=== PATIENT | female | born 1950 | race African-American/Black ===

== ENCOUNTER 2023-12-27 18:53 | Inpatient (IN) | payer MEDICARE, BC, SELFPAY ==
[2023-12-27] VITALS (14 sets, daily range): BP systolic 160–199; BP diastolic 39–68; PULSE 62–66
[2023-12-27 16:32] LABS: % Basophils 0.7 % (0-2); % Eosinophils 5.7 % (0-6); % Immature Granulocytes 0.5 % (0-0.5); % Lymphocytes 20.2 % (20.5-51.1); % Monocytes 9.5 % (1.7-9.3); % Neutrophils 63.5 % (42.2-75.2); AST (SGOT) 56 U/L (14-36); Absolute Basophils 0.1 10^3/uL (0-0.2); Absolute Eosinophils 0.5 10^3/uL (0-0.7); Absolute Lymphocytes 1.7 10^3/uL (1.2-3.4); Absolute Monocytes 0.8 10^3/uL (0.1-0.6); Absolute Neutrophils 5.5 10^3/uL (1.4-6.5); Albumin 2.9 g/dl (3.5-5.0); Blood Urea Nitrogen 45 mg/dl (7-17); Carbon Dioxide 33 mmol/L (22-30); Mean Corp Hgb Conc. 34.7 g/dL (33.0-37.0); Mean Corpuscular Hgb 30.9 pg (27.0-31.0); Mean Corpuscular Volume 88.8 fL (81.0-99.0); Mean Platelet Volume 9.7 fL (7.4-10.4); Nucleated Red Blood Cells % 0 %; Platelet Count 276 10^3/uL (130-400); Red Blood Cell Count 1.88 10^6/uL (4.20-5.40); Red Cell Dist. Width 14.6 % (11.5-14.5); Total Bilirubin 0.3 mg/dl (0.2-1.3); Total Protein 5.9 g/dl (6.3-8.2); White Blood Cell Count 8.7 10^3/uL (4.8-10.8); eGFR 22.95
[2023-12-27 16:42] LABS: INR 1.21; PT 15.3 Sec (11.4-14.6)
[2023-12-27 16:43] LABS: ALT (SGPT) 13 U/L (0-35); Alkaline Phosphatase 115 U/L (38-126); Glucose 111 mg/dl (70-99)
[2023-12-27 16:45] LABS: Hemoglobin 5.9 g/dL (12.0-16.0)
[2023-12-27 16:46] LABS: Hematocrit 17 % (37.0-47.0)
[2023-12-27 16:49] LABS: Chloride 91 mmol/L (98-107); Potassium 3.3 mmol/L (3.5-5.1); Sodium 128 mmol/L (135-145)
[2023-12-27] MEDS: PROTONIX IV 80 MG IV (17:30)
[2023-12-27] MEDS: PROTONIX 100 IV (17:31)
--- NOTE | 2023-12-27 17:41 | ED.GENMED ---
History of Present Illness
General
Chief Complaint: Abnormal Lab Value
Source: records
Exam Limitations: clinical condition
Time Seen by Provider: 12/27/23 13:53
History of Present Illness
History of Present Illness:
73-year-old female presents for concerns of anemia. She has a history of end-stage renal disease but also has a history of dementia. He is on Eliquis. Patient reportedly had low hemoglobin on dialysis. Patient offers no complaints and is unable
to contribute to her own history. No vomiting
Past History
Past History
ED Past Medical History: Arrthythmia (Atrial fibrillation), NIDDM, Renal failure, Seizures and Other (Dementia, dysphagia, G-tube, anemia)
Phy Exam
Physical Exam
Physical Exam:
CONSTITUTIONAL Patient sleeping but arousable. Confused. Well-appearing. Vital signs reviewed.
HEAD atraumatic, normocephalic.
NECK normal range of motion, Trachea midline, no jugular venous distention.
RESPIRATORY CHEST No respiratory distress noted, Chest expansion equal
ABDOMEN abdomen nontender, Bowel sounds normal. No distention.
Rectal exam Black stool, heme positive
BACK normal inspection, no obvious deformities
UPPER EXTREMITY range of motion normal, Motor strength normal, no cyanosis, no edema.
LOWER EXTREMITY range of motion normal, Motor strength normal, no cyanosis, equine deformity noted
NEURO nonverbal, confused
SKIN skin warm, dry, and normal in color.
Course
Orders/Labs/Results
Orders:
Orders
12/27/23 14:09
IV Insert/Care/Rem.- Treatment PRN
12/27/23 16:10
Type+Screen Urgent
Complete Blood Count/With Diff Urgent
Comprehensive Metabolic Panel Urgent
Prothrombin Time Urgent
12/27/23 17:22
* Blood Bank Products Urgent
Blood Bank Products: *Packed RBC Leuko(PRBC's)
Quantity: 2
Transfuse Today: Yes
Reason: Anemia
IV Insert/Care/Rem.- Treatment PRN
Pantoprazole 80 mg/100 ml Nss [Protonix] 80 mg in 100 ml IV NOW
Pantoprazole [Protonix IV] 80 mg IV NOW STA
12/27/23 17:49
Electrocardiogram (*1) Urgent
Reason for Study: Other
Other Reason for Exam: anemia
EKG- Treatment ONCE
Abnormal Lab Results
12/27/23
16:10
RBC 1.88 L 10^6/uL
(4.20-5.40)
Hgb 5.9 L* g/dL
(12.0-16.0)
Hct 17 L* %
(37.0-47.0)
RDW 14.6 H %
(11.5-14.5)
Absolute Monos (auto) 0.8 H 10^3/uL
(0.1-0.6)
Lymphocytes % 20.2 L %
(20.5-51.1)
Monocytes % 9.5 H %
(1.7-9.3)
PT 15.3 H Sec
(11.4-14.6)
Sodium 128 L mmol/L
(135-145)
Potassium 3.3 L mmol/L
(3.5-5.1)
Chloride 91 L mmol/L
(98-107)
Carbon Dioxide 33 H mmol/L
(22-30)
BUN 45 H mg/dl
(7-17)
Creatinine 2.2 H mg/dL
(0.6-1.0)
Glucose 111 H mg/dl
(70-99)
AST 56 H U/L
(14-36)
Total Protein 5.9 L g/dl
(6.3-8.2)
Albumin 2.9 L g/dl
(3.5-5.0)
12/27/23 16:10
12/27/23 16:10
Vital Signs
Initial and Last Documented VS:
Initial Vital Signs
Pulse Resp Pulse Ox
61 18 98
12/27/23 13:48 12/27/23 13:48 12/27/23 13:48
Last Documented Vital Signs
Temp Pulse Resp BP Pulse Ox
98.2 F 59 10 160/55 100
12/27/23 14:00 12/27/23 15:00 12/27/23 15:00 12/27/23 15:00 12/27/23 15:00
MDM/Problems Addressed
MDM/Problems Addressed:
End-stage renal disease, acute GI bleeding, dementia, anticoagulated
*Pulse Oximetry
Patient hypoxic: no
*Critical Care Note
Total Time (30-74mins, 75-104mins- exclusive of procedures): 40 minutes
Data Reviewed
Review of Other/Old Records Reveals: Records (prison paperwork reviewed)
Further Testing Considered But Not Given:
Consider CT imaging but abdomen benign.
Patient Management
Discussion with other providers: Hospitalist
Escalation/DeEscalation of care consider admission/obs:
Patient on Eliquis with anemia and heme positive stools. Protonix drip. Packed red blood cell transfusion. Attempted to call several times without answer or call back thus far. Given the fact that her hemoglobin is in the fives and she
is chronically ill on Eliquis I do believe it is urgent that we deliver packed red blood cells without speaking to family for further consent. Will continue to try to get a hold of family. Messages were left for return call
ED Attending Note
-
Portions of this chart may have been created with voice recognition software.� Occasional wrong word or��sound alike� substitutions may have occurred due to the inherent limitations of voice recognition software.
Discharge Plan
Departure
Patient Disposition: Admit
Date of Disposition: 12/27/23
Time of Disposition: 17:41
Admit to: Telemetry
Presentation/result/management discussed w/ accepting MD/DO: Hospitalist
Discharge Problem:
Anemia, Chronic renal failure, Dementia, Acute GI bleeding
Prescriptions:
No Action
losartan 50 mg Tablet
50 mg feeding tube DAILY
acetaminophen [Tylenol] 325 mg Tablet
650 mg PO Q6HPRN PRN (Reason: mild pain)
atorvastatin [Lipitor] 20 mg Tablet
20 mg feeding tube HS
insulin glargine 100 unit/mL Solution
5 unit SC HS
clonidine 0.1 mg/24 hr Patch Weekly
1 patch TRANSDERMAL QWEEK
polyethylene glycol 3350 [Miralax] 17 gram Powder In Packet
17 g feeding tube DAILYPRN PRN (Reason: CONSTIPATION)
hydralazine 25 mg Tablet
25 mg feeding tube TID
melatonin 3 mg Tablet
3 mg feeding tube HSPRN PRN (Reason: SLEEP)
amlodipine [Norvasc] 10 mg Tablet
10 mg feeding tube DAILY
bisacodyl [Dulcolax (bisacodyl)] 10 mg Suppository
10 mg AL DAILYPRN PRN (Reason: if no bm aftr mom)
ferrous sulfate 300 mg (60 mg iron)/5 mL Liquid
300 mg feeding tube DAILY
aspirin 81 mg Tablet,Chewable
81 mg feeding tube DAILY
famotidine [Pepcid] 40 mg/5 mL (8 mg/mL) Suspension For Reconstitution
1.3 ml feeding tube DAILY
insulin lispro 100 unit/mL Insulin Pen
0 sliding scale dose SC AC
Rx Instructions:
151-200=1 UNITS, 201-250=2UNITS, 251-300=3UNITS
lacosamide [Vimpat] 10 mg/mL Solution
100 mg feeding tube BID
Eliquis 5 mg Tablet
5 mg feeding tube BID
Referrals:
Faizan,Earl I., DO [Family Provider] -
Interventions
Interventions:
*Risk Screen - Suicide Last Done: 12/27/23 14:01
*General Assessment Last Done: 12/27/23 14:01
*Neglect/Abuse Screening Last Done: 12/27/23 14:01
*ED COVID-19 Vaccine History Last Done: 12/27/23 14:01
Discharge Date and Time
Print Language: FAROESE
--- NOTE | 2023-12-27 18:25 | HPS.HSE ---
Family Physician
-
Family Physician: Earl Gloria
Chief Complaint
-
Acute anemia
History of Present Illness
This is a 73-year-old female with history of end-stage renal disease on hemodialysis Tuesdays and Saturdays, history of anemia secondary to chronic disease, history of DVT on anticoagulation, history of paroxysmal atrial fibrillation,
hypertension, epileptic seizures, dysphagia status post PEG tube, CAD with prior NSTEMI, CVA who presents to the emergency department for dialysis unit for a low blood count.
Patient unable to provide history and minimally responsive likely secondary to history of CVA with residual aphasia, and left-sided weakness. Minimal report from dialysis unit. Patient apparently had blood drawn today and was found to have a
hemoglobin of 5.9 at dialysis unit so was sent to the emergency department. In the ED evaluation of the rectum shows black heme positive stools. Patient known to be on Eliquis. Has been getting Eliquis regularly and minus reports continued
Eliquis. She apparently completed a dialysis session today.
Attempted to reach next of kin and additional family members without success. Left messages for daughter as well as her spouse.
ED vital signs shows a blood pressure of 160/55 with a pulse of 59 and oxygen saturation of 100% on room air. ECG shows sinus bradycardia at [address] or T wave changes. Hemoglobin was 5.9 with a platelet count of 276 and INR of
1.21. Chemistries were consistent with ESRD with a BUN of 45 and a creatinine of 2.2.
Medical History
Past Medical History
Past Medical History: Reports Arrhythmia, CAD, CVA, HTN, IDDM and Renal Failure
Additional Past Medical History:
Seizure D/O
Atrial Fibrillation
Past Surgical History: Reports None
Social History
Unable to obtain full social history at this time due to: Patient Non-verbal
Tobacco: Non-smoker
Alcohol: None
Drug: None
Personal:
Living: [facility]
Employment: Disabled
Family History
Family History: Not pertinent
Allergies / Home Medications
Allergies reflects when Allergies were last updated in [facility].
Home Medications with original date entered in [facility]
Allergy/Medication List:
Allergies
Allergy/AdvReac Type Severity Reaction Status Date / Time
adhesive tape Allergy Unknown Verified 12/27/23 13:48
codeine Allergy Unknown Verified 12/27/23 13:48
oxycodone Allergy Unknown Verified 12/27/23 13:48
tramadol Allergy Unknown Verified 12/27/23 13:48
Home Medications
acetaminophen 325 mg tablet (Tylenol) 650 mg PO Q6HPRN PRN mild pain 12/27/23
amlodipine 10 mg tablet (Norvasc) 10 mg feeding tube DAILY 12/27/23
apixaban 5 mg tablet (Eliquis) 5 mg feeding tube BID 12/27/23
aspirin 81 mg chewable tablet 81 mg feeding tube DAILY 12/27/23
atorvastatin 20 mg tablet (Lipitor) 20 mg feeding tube HS 12/27/23
bisacodyl 10 mg rectal suppository (Dulcolax (bisacodyl)) 10 mg [place] DAILYPRN PRN if no bm aftr mom 12/27/23
clonidine 0.1 mg/24 hr weekly transdermal patch 1 patch transdermal QWEEK 12/27/23
famotidine 40 mg/5 mL (8 mg/mL) oral suspension 1.3 ml feeding tube DAILY 12/27/23
ferrous sulfate 300 mg (60 mg iron)/5 mL oral liquid 300 mg feeding tube DAILY 12/27/23
hydralazine 25 mg tablet 25 mg feeding tube TID 12/27/23
insulin glargine 100 unit/mL subcutaneous solution 5 unit SC HS 12/27/23
insulin lispro 100 unit/mL subcutaneous pen 0 sliding scale dose SC AC 12/27/23
lacosamide 10 mg/mL oral solution (Vimpat) 100 mg feeding tube BID 12/27/23
losartan 50 mg tablet 50 mg feeding tube DAILY 12/27/23
melatonin 3 mg tablet 3 mg feeding tube HSPRN PRN SLEEP 12/27/23
polyethylene glycol 3350 17 gram oral powder packet (Miralax) 17 g feeding tube DAILYPRN PRN CONSTIPATION 12/27/23
Review of Systems
-
Unable to obtain full review of systems at this time due to: Patient Non-verbal
Physical Exam
Vital Signs
Vital Signs
Temp Pulse Resp BP Pulse Ox
98.2 F 59 10 160/55 100
12/27/23 14:00 12/27/23 15:00 12/27/23 15:00 12/27/23 15:00 12/27/23 15:00
Physical Exam
General: Well Developed, No Apparent Distress and Slurred Speech
HEENT: NormoCephalic, Anicteric, Moist mucous membranes and PERRLA
Respiratory: Clear
Cardiac: S1/S2 and Regular Rhythm
Breast: Deferred by me
GI: Soft, Non Tender and Non Distended
Rectal: Black and Hem Positive
Genito-urinary: Deferred by me
Musculoskeletal: No Clubbing, No Cyanosis and No Edema
Skin: Warm and Dry
Neuro: Awake, Oriented (to person only), Slurred Speech, Facial Droop (left facial droop) and Other (left sided weakness)
Hematologic/Lymphatic: No Lymphadenopathy
Psych: Calm
Laboratory Results
-
12/27/23 16:10
12/27/23 16:10
Laboratory Results
PT 15.3 Sec (11.4-14.6) H 12/27/23 16:10
INR 1.21 12/27/23 16:10
Total Bilirubin 0.3 mg/dl (0.2-1.3) 12/27/23 16:10
AST 56 U/L (14-36) H 12/27/23 16:10
ALT 13 U/L (0-35) 12/27/23 16:10
Alkaline Phosphatase 115 U/L (38-126) 12/27/23 16:10
Data Reviewed
-
Medical Tests (Nuc Med, Echo, EKG etc): Image Personally Visualized and interpreted
Lab Data: Labs Reviewed by me
Old Records: Reviewed
Impression/Plan
-
IMPRESSION:
Anemia in patient on ESRD with known ACD presenting with finding of Hgb of 5.9 at HD today and transferred to ED. Dialysis unit nor skilled nursing provided any prior hgb levels and no known h/o GI bleed. Patient unable to provide any history. She
is hemodynamically stable and in no acute distress.
PLAN:
GI - Bleed - Suspect upper GI bleed in setting of anticoagulation and antiplatelet therapy. Hemodynamically stable.
- admit to telemetry
- type and screen, transfuse 1 unit prbc now and transfuse for goal Hgb of 7. No evidence of volume overload currently. Two physician consent obtained as we are unable to get hold of family for consent.
- ppi iv gtt for now
- npo for now
- holding eliquis and aspirin
- GI consultation
ESRD - HD t//sat via left IJ permcath. Completed session today. No indication for acute HD
- npo, nephrology consultation tomorrow for HD on sat
- renal dose all medications
- no volume overload, hyperkalemia or acidosis requiring urgent HD
- continue calcitriol
- hyponatremia - c/w ESRD, correct on HD. Fluid restriction with NPO for now
HTN -
- continue amlodipine, hydralazine, clonidine and losartan with hold parameters
Seizure d/o
- continue lacosamide and keppra via PEG
DM II
- insulin sliding scale q 6 hours.
DVT PPX - SCDs
Full code according to transfer data
--- NOTE | 2023-12-27 21:00 | PTCARENOTE ---
Pt transferred from ED with first unit of blood transfusing. Pt transferred into bed. Pt AAOX1, slow speech. Pt appears comfortable, no signs of pain. Pt oriented to bed, call carrillo within reach, bed alarm applied. Will continue with current plan.
[2023-12-27 21:27] LABS: Glucose - Point of Care 129 mg/dl (70-99)
[2023-12-27] MEDS: NOVOLOG FLEXPEN-LOW RESISTANCE SC (22:59)
[2023-12-27] MEDS: LIPITOR 20 MG TUBE (23:00)
[2023-12-27] MEDS: CATAPRES-TTS-1 0.1 MG TRANSDERM (23:00)
[2023-12-27] MEDS: APRESOLINE 25 MG TUBE (23:00)
[2023-12-27] MEDS: VIMPAT 100 MG TUBE (23:05)
[2023-12-28] VITALS (7 sets, daily range): BP systolic 156–209; BP diastolic 54–98; PULSE 56–65
[2023-12-28 00:11] LABS: Glucose - Point of Care 114 mg/dl (70-99)
[2023-12-28] MEDS: NOVOLOG FLEXPEN-LOW RESISTANCE SC ×5 (00:23→23:16)
[2023-12-28] MEDS: APRESOLINE 10 MG IV (03:57)
[2023-12-28 05:23] LABS: Glucose - Point of Care 121 mg/dl (70-99)
[2023-12-28 05:58] LABS: Blood Urea Nitrogen 49 mg/dl (7-17); Calcium 8.9 mg/dl (8.4-10.2); Carbon Dioxide 31 mmol/L (22-30); Chloride 93 mmol/L (98-107); Glucose 97 mg/dl (70-99); Iron 95 ug/dl (37-170); Potassium 3.3 mmol/L (3.5-5.1); Sodium 131 mmol/L (135-145); eGFR 17.95
[2023-12-28 06:07] LABS: Percent Saturation 54 % (20-50); Total Iron Binding Capacity 174 ug/dl (265-497)
[2023-12-28 06:10] LABS: Hematocrit 24.1 % (37.0-47.0); Hemoglobin 8.4 g/dL (12.0-16.0)
--- NOTE | 2023-12-28 07:26 | W.PN.HOSP.TC ---
Addendum entered and electronically signed by Rolly Ojeda MD 12/28/23 17:06:
73 y/o female with Anemia
I personally performed a history and physical exam of the patient and discussed management with the resident. I reviewed the resident's note and agree with the documented findings and plan of care HPI/CC except for changes in documentation.
CVS: S1-S2 normal,
Chest: CTA B/L
Abdomen: Soft, NT , Bowel sounds present
Extremities: No edema
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
#GIB
Differential are broad
Exacerbated by Eliquis and ASA
Got 2 units of PRBC
PPI GTT
NPO
Hold Eliquis
GI eval appreciated
Procedures when can be reached.
#ESRD HD T/TH/Sun
Left IJ access
Got HD 12/27/23
Nephrology eval
#Hyponatremia- Treat at HD
#Hypokalemia- Replace 20 MEQ
#HTN-Multidrug resistant
OP Meds amlodipine 10 mg daily, hydralazine 50mg Q8H, clonidine patch and losartan 50 mg daily
Watch HR with clonidine
Will add PRN Hydralazine for BP over 170
Change Norvasc to Nicardipine tomorrow if BP nt well controlled
#Seizure disorder-Continue lacosamide via PEG
#Atrial Fibrillation- Hold Eliquis. Rates mostly controlled with clonidine?
#H/O DVT-Hold Eliquis
#Hyperlipidemia-Continue Statin
#Dementia
#DM II -Insulin sliding scale q 6 hours. Hold Lantus 5 units HS
#H/O Dysphagia with PEG tube
#H/O Lung Ca per chart
#DVT PPX - SCDs
#Full code
D/W Renal
D/W GI
Called went to message
Left message
Original Note:
Today's Communication/Plan
-
blood pressure management
Nephro consult
HD tomorrow
Assessment / Plan
Assessment / Plan
Impression:
This is a 73-year-old female with history of end-stage renal disease on hemodialysis Tuesdays and Saturdays, history of anemia secondary to chronic disease, history of DVT on anticoagulation, history of paroxysmal atrial fibrillation,
hypertension, epileptic seizures, dysphagia status post PEG tube, CAD with prior NSTEMI, CVA who presents to the emergency department for dialysis unit for a low blood count.
Plan:
#GI Bleed
- Suspect upper GI bleed in setting of anticoagulation and antiplatelet therapy.
-Rectum eval in ED shows black stool, heme positive
- admit to telemetry
- type and screen
-S/p transfuse 2 unit prbc
-Goal Hgb of 7. No evidence of volume overload currently. Two physician consent obtained as we are unable to get hold of family for consent.
- ppi iv gtt for now
- npo for now
- holding eliquis and aspirin
- GI consultation
#ESRD
- HD t//sat via left IJ permcath.
-Last completed session 12/27/23.
-Cr on admission was 2.2
-Cr 2.7 today
- npo, nephrology consultation tomorrow for HD on sat
- renal dose all medications
- today, no volume overload, hyperkalemia or acidosis requiring urgent HD
- continue calcitriol
#hyponatremia
-Na 128 on admission
-Na 131 today
- c/w ESRD, correct on HD.
-Fluid restriction with NPO for now
#hypokalemia
-K 3.3 this A.m
-repleted with tube K 20meq
#HTN
- continue amlodipine, hydralazine, clonidine and losartan with hold parameters
-Add PRN hydralizine with holding parameters
#Seizure d/o
- continue lacosamide and keppra via PEG
#DM II
- insulin sliding scale q 6 hours.
DVT PPX - SCDs
Diet:NPO
Full code according to transfer data
Anticipated Discharge: > 48 hours
Subjective/Interval History
-
Date of Service: December 28, 2023
No acute events overnight
Pt alert but non verbal, at baseline
Family has still not been contacted
Objective Data
-
Labs:
Laboratory Results
12/28/23 12/28/23
04:13 14:45
Hgb 8.4 L D Pending
Hct 24.1 L Pending
Sodium 131 L
Potassium 3.3 L
Chloride 93 L
Carbon Dioxide 31 H
BUN 49 H
Creatinine 2.7 H
Glucose 97
Calcium 8.9
Vital Signs:
Vital Signs
Temp Pulse Resp BP Pulse Ox
97.1 F 64 12 209/73 100
12/28/23 04:18 12/28/23 04:18 12/28/23 04:18 12/28/23 04:18 12/28/23 04:18
I&O
12/27/23 12/28/23 12/29/23
06:59 06:59 06:59
Intake Total 500 / 500
Balance 500 / 500
Review of Systems
-
Unable to obtain full review of systems at this time due to: Dementia and Patient Non-verbal
Physical Exam
-
General: No Apparent Distress and Comfortable; Negative Conversant
Respiratory: Clear to Auscultation
Cardiac: Regular Rhythm, S1/S2 and Murmur
GI: Soft, Nondistended and Normal Bowel Sounds
Musculoskeletal: No Edema
Skin: Warm and Dry
Neuro: Awake
Psych: Apparent Dementia
Data Reviewed
-
Labs: Labs Reviewed by me and Discussed with Physician
[2023-12-28] MEDS: COZAAR 50 MG TUBE (09:15)
[2023-12-28] MEDS: NORVASC 10 MG TUBE (09:16)
[2023-12-28] MEDS: VIMPAT 100 MG TUBE ×2 (09:16→21:19)
[2023-12-28] MEDS: FERROUS SULFATE ORAL LIQUID 300 MG TUBE (09:16)
[2023-12-28] MEDS: APRESOLINE 25 MG TUBE ×2 (09:16→10:55)
[2023-12-28] MEDS: KLOR-CON 20 MEQ TUBE (09:19)
[2023-12-28 10:52] LABS: Glucose - Point of Care 121 mg/dl (70-99)
--- NOTE | 2023-12-28 10:52 | CM ---
TC to Josefina from [facility] for information.
Await TCB.
[2023-12-28 12:21] LABS: Hepatitis B Surface Antigen Negative (Negative)
[2023-12-28 12:39] LABS: Hepatitis B Surface Antibody Negative
--- NOTE | 2023-12-28 15:03 | CON.GI ---
Addendum entered and electronically signed by Earl Curtis MD 12/28/23 15:54:
I saw and examined the patient.
The [employer]ITTER or PA's note was reviewed and I agree with the note.
Comment: 73yo female presents from HD with anemia. Hgb 5.9. Given PRBC and up to 8.4. She is on eliquis for hx DVT, has PEG tube- lavaged at bedside by [employer], negative. Stool dark heme positive, on PO iron though. Pt is nonverbal, limited
history. No EGD/colonoscopy noted in chart.
REC:
Trend Hgb and transfuse as needed
I tried calling Art but one number had no voicemail set up, other was busy
Cont protonix gtt
Discuss EGD/colonoscopy with when available
Hold Eliquis for now
DDx fairly broad includes ectasia, ulcer, malignancy
Original Note:
Consultation
-
Date/Time Consultation Requested: 12/27/232009
Date/Time Consultation Performed: 12/28/23 1430
Requesting Provider: Dr. Staton
Performing Provider: Dr. Curtis/BHUPINDER Smith
Reason for Consultation: anemia/OB pos stool
Medical History
Chief Complaint / HPI
Chief Complaint: anemia
History of Present Illness:
73 y/o female with PMH of CVA with aphasia, dysphagia with PEG tube, ESRD on HD -, AOCD/anemia on oral iron, DVT on AC (eliquis 5 mg BID), PAF, CAD with prior STEMI on ASA 81 mg , HTN, DM, and Seizure disorder who presents to the ER with
decreased Hgb found during HD session, completed HD session on . Patient is non verbal. she has never been in this hospital. She was found to have Hgb of 5.9 with dark black stool that was OB positive. Patient was given 2 units of PRBC with
Hgb increasing to 8.4 and Eliquis was held. Patient has not had any BM or signs of bleeding since here. ER physician and IM Attending attempted to reach family without any success. I also tried to reach her spouse that is listed Art Nettles
[phone] (no answer and mail box has not been set up) and [phone] (busy signal constantly). The patient appears comfortable. When asked if she has abdominal pain, nausea or discomfort she nods her head no. She has no discomfort to exam. I
discussed with RN and patient has no signs of bleeding or BM. She had been getting meds via 16 Fr [employer] Cook PEG tube. She had no signs of bleeding or return from this and has been receiving meds through this. This was aspirated and flushed without
any signs of blood, coffee grounds or bile. 90 cc water was used and flowed freely with only return of less then half. The patient was able to elaborate that she had no pain with this. Patient was started on Pantoprazole gtt. VSS. Awaiting repeat
Hgb at this time.
Past Medical History
Past Medical History: Arrhythmias (Afib), CAD, CVA (aphasia), HTN, NIDDM, HI, Renal Failure (on HD -), Seizures and Other (Anemia on iron /AOCD)
Past Surgical History: Other (PEG tube )
Social History
Tobacco: Other (unable to obtain)
Alcohol: Other (unable)
Drug: Other (unable)
Personal:
Family History
Family History: Unable to Obtain
Allergies / Home Medications
Allergy/AdvReac Type Severity Reaction Status Date / Time
adhesive tape Allergy Unknown Verified 12/27/23 13:48
codeine Allergy Unknown Verified 12/27/23 13:48
oxycodone Allergy Unknown Verified 12/27/23 13:48
tramadol Allergy Unknown Verified 12/27/23 13:48
�Medication �Instructions �Recorded
acetaminophen 325 mg tablet 650 mg PO Q6HPRN PRN mild pain 12/27/23
(Tylenol)
amlodipine 10 mg tablet (Norvasc) 10 mg feeding tube DAILY Blood 12/27/23
Pressure
apixaban 5 mg tablet (Eliquis) 5 mg feeding tube BID Blood Clot 12/27/23
Prevention/Tx
aspirin 81 mg chewable tablet 81 mg feeding tube DAILY Blood 12/27/23
Clot Prevention/Tx
atorvastatin 20 mg tablet (Lipitor) 20 mg feeding tube HS High 12/27/23
Cholesterol
bisacodyl 10 mg rectal suppository 10 mg [place] DAILYPRN PRN if no bm 12/27/23
(Dulcolax (bisacodyl)) aftr mom
clonidine 0.1 mg/24 hr weekly 1 patch transdermal QWEEK Blood 12/27/23
transdermal patch Pressure
famotidine 40 mg/5 mL (8 mg/mL) 1.3 ml feeding tube DAILY 12/27/23
oral suspension Gastrointestinal Issue
ferrous sulfate 300 mg (60 mg 300 mg feeding tube DAILY 12/27/23
iron)/5 mL oral liquid Supplement
hydralazine 25 mg tablet 25 mg feeding tube TID Blood 12/27/23
Pressure
insulin glargine 100 unit/mL 5 unit SC HS Diabetes 12/27/23
subcutaneous solution
insulin lispro 100 unit/mL 0 sliding scale dose SC AC Diabetes 12/27/23
subcutaneous pen
lacosamide 10 mg/mL oral solution 100 mg feeding tube BID Seizures 12/27/23
(Vimpat)
losartan 50 mg tablet 50 mg feeding tube DAILY Blood 12/27/23
Pressure
melatonin 3 mg tablet 3 mg feeding tube HSPRN PRN SLEEP 12/27/23
polyethylene glycol 3350 17 gram 17 g feeding tube DAILYPRN PRN 12/27/23
oral powder packet (Miralax) CONSTIPATION
Review of Systems
-
Unable to obtain full review of systems at this time due to: Patient Non Verbal
Vital Signs
Temp Pulse Resp BP Pulse Ox
97.7 F 69 18 198/61 100
12/28/23 11:00 12/28/23 11:00 12/28/23 11:00 12/28/23 11:00 12/28/23 11:00
Physical Exam
Exam
General: No Apparent Distress and Other (patient non verbal)
HEENT: Anicteric
Respiratory: Clear (anterior)
Cardiac: Regular Rhythm
GI: Soft, Non Tender, Non Distended, Normal Bowel Sounds and Other (16 F Entuit Cook PEG tube, bumper at 6 cm from skin, this was aspirated and flushed with 90 cc water without any signs of GIB. )
Rectal: Hem Positive (black/Heme pos per ER (patient also on oral iron))
Results
WBC 8.7 10^3/uL (4.8-10.8) 12/27/23 16:10
Hgb 8.4 g/dL (12.0-16.0) L D 12/28/23 04:13
Hct 24.1 % (37.0-47.0) L 12/28/23 04:13
MCV 88.8 fL (81.0-99.0) 12/27/23 16:10
Plt Count 276 10^3/uL (130-400) 12/27/23 16:10
Absolute Neuts (auto) 5.5 10^3/uL (1.4-6.5) 12/27/23 16:10
PT 15.3 Sec (11.4-14.6) H 12/27/23 16:10
INR 1.21 12/27/23 16:10
Sodium 131 mmol/L (135-145) L 12/28/23 04:13
Potassium 3.3 mmol/L (3.5-5.1) L 12/28/23 04:13
Chloride 93 mmol/L (98-107) L 12/28/23 04:13
Carbon Dioxide 31 mmol/L (22-30) H 12/28/23 04:13
BUN 49 mg/dl (7-17) H 12/28/23 04:13
Creatinine 2.7 mg/dL (0.6-1.0) H 12/28/23 04:13
Calcium 8.9 mg/dl (8.4-10.2) 12/28/23 04:13
Total Bilirubin 0.3 mg/dl (0.2-1.3) 12/27/23 16:10
AST 56 U/L (14-36) H 12/27/23 16:10
ALT 13 U/L (0-35) 12/27/23 16:10
Alkaline Phosphatase 115 U/L (38-126) 12/27/23 16:10
Hep Bs Antibody Negative 12/28/23 04:13
Diagnostic Image Results:
none
Prior GI Procedures:
EGD: unknown
Colonoscopy: unknown
Assessment / Plan
-
73 y/o female with PMH of CVA with aphasia, dysphagia with PEG tube, ESRD on HD -, AOCD/anemia on oral iron, DVT on AC (eliquis 5 mg BID), PAF, CAD with prior STEMI on ASA 81 mg , HTN, DM, and Seizure disorder who presents to the ER with
decreased Hgb found during HD session, completed HD session on . Patient is non verbal. she has never been in this hospital. She was found to have Hgb of 5.9 with dark black stool that was OB positive. Patient was given 2 units of PRBC with
Hgb increasing to 8.4 and Eliquis was held. Patient has not had any BM or signs of bleeding since here. ER physician and IM Attending attempted to reach family without any success. I also tried to reach her spouse that is listed Art Nettles
[phone] (no answer and mail box has not been set up) and [phone] (busy signal constantly). The patient appears comfortable. When asked if she has abdominal pain, nausea or discomfort she nods her head no. She has no discomfort to exam. I
discussed with RN and patient has no signs of bleeding or BM. She had been getting meds via 16 Fr [employer] Cook PEG tube. She had no signs of bleeding or return from this and has been receiving meds through this. This was aspirated and flushed without
any signs of blood, coffee grounds or bile. 90 cc water was used and flowed freely with only return of less then half. The patient was able to elaborate that she had no pain with this. Patient was started on Pantoprazole gtt. VSS. Awaiting repeat
Hgb at this time.
Impression:
Anemia-> worsening unsure what baseline Hgb is. Hopefully Renal can provide insight.
OB positive stool
Chronic anticoagulation use for DVT/PAF (Eliquis 5 mg BID), held -> most likely last dose 12/27/23 am prior to HD.
ESRD on HD -Sun
Hx chronic anemia with hx of AOCD and iron def as patient on oral iron
CAD/STEMI on ASA 81 mg
Plan:
-Continue to hold Eliquis at this time
-Trend Hgb, currently awaiting repeat draw
-Continue Protonix gtt
-Attempted to reach spouse (Art Nettles [phone] (no answer and mail box has not been set up) and [phone] (busy signal constantly). Daughter called in to RN today but no phone number left. Asked RN to obtain phone number so we may
contact as we need to ask GI hx, and if they would like us to proceed with any endoscopic procedures. Currently patient appears stable without any signs of active bleeding and off anticoagulation. No procedure could occur anyway until 48 hrs since
last dose of Eliquis.
-If with active bleeding would obtain Nuc Med bleeding scan given ESRD
-Futher recommendations to be forthcoming.
-
-
Thank you for consultation and allowing me to participate in the patient's care. Please call the [facility] physician during the after hours with any questions or concerns.
--- NOTE | 2023-12-28 15:34 | W.CON.NEPH ---
Consultation
-
Date/Time Consultation Requested: 12/28/2023 midnight
Date/Time Consultation Performed: 12/28/2023 3:35PM
Requesting Provider: Owen Eason
Performing Provider: Scarlett Hawkins
Reason for Consultation: ESRD on HD
Medical History
-
Chief Complaint: ESRD on HD
History of Present Illness:
This is a 73-year-old female with history of end-stage renal disease on hemodialysis Tuesdays and Saturdays, history of anemia secondary to chronic disease, history of DVT on anticoagulation, history of paroxysmal atrial fibrillation,
hypertension, epileptic seizures, dysphagia status post PEG tube, CAD with prior NSTEMI, CVA who presents to the emergency department for dialysis unit for a low blood count.
The patient is minimally interactive so history is obtained from chart review. She was found tohave a low blood count during routine labs at her HD unit and was sent to the ER for further management. Patient is on AC and was found to have heme +
stools in the ER. She is normotensive and Hgb is 5.9. She has no complaints.
Past Medical History
ESRD on HD TThS
CAD with NSTEMI
Anemia of chronic disease
DVT on AC
PAfib
HTN
seizures
CVA c/b aphasia
dysphagia with PEG tube in place
Past Medical History: Other
Past Surgical History: None
Social History
Tobacco: Non-Smoker
Alcohol: None
Drug: None
Living: [facility]
Family History
Family History: Not Pertinent
Allergies / Home Medications
Allergy/AdvReac Type Severity Reaction Status Date / Time
adhesive tape Allergy Unknown Verified 12/27/23 13:48
codeine Allergy Unknown Verified 12/27/23 13:48
oxycodone Allergy Unknown Verified 12/27/23 13:48
tramadol Allergy Unknown Verified 12/27/23 13:48
�Medication �Instructions �Recorded �Confirmed �Type
acetaminophen 325 mg tablet 650 mg PO Q6HPRN PRN mild pain 12/27/23 12/27/23 History
(Tylenol)
amlodipine 10 mg tablet (Norvasc) 10 mg feeding tube DAILY Blood 12/27/23 12/27/23 History
Pressure
apixaban 5 mg tablet (Eliquis) 5 mg feeding tube BID Blood Clot 12/27/23 12/27/23 History
Prevention/Tx
aspirin 81 mg chewable tablet 81 mg feeding tube DAILY Blood 12/27/23 12/27/23 History
Clot Prevention/Tx
atorvastatin 20 mg tablet (Lipitor) 20 mg feeding tube HS High 12/27/23 12/27/23 History
Cholesterol
bisacodyl 10 mg rectal suppository 10 mg IN DAILYPRN PRN if no bm 12/27/23 12/27/23 History
(Dulcolax (bisacodyl)) aftr mom
clonidine 0.1 mg/24 hr weekly 1 patch transdermal QWEEK Blood 12/27/23 12/27/23 History
transdermal patch Pressure
famotidine 40 mg/5 mL (8 mg/mL) 1.3 ml feeding tube DAILY 12/27/23 12/27/23 History
oral suspension Gastrointestinal Issue
ferrous sulfate 300 mg (60 mg 300 mg feeding tube DAILY 12/27/23 12/27/23 History
iron)/5 mL oral liquid Supplement
hydralazine 25 mg tablet 25 mg feeding tube TID Blood 12/27/23 12/27/23 History
Pressure
insulin glargine 100 unit/mL 5 unit SC HS Diabetes 12/27/23 12/27/23 History
subcutaneous solution
insulin lispro 100 unit/mL 0 sliding scale dose SC AC Diabetes 12/27/23 12/27/23 History
subcutaneous pen
lacosamide 10 mg/mL oral solution 100 mg feeding tube BID Seizures 12/27/23 12/27/23 History
(Vimpat)
losartan 50 mg tablet 50 mg feeding tube DAILY Blood 12/27/23 12/27/23 History
Pressure
melatonin 3 mg tablet 3 mg feeding tube HSPRN PRN SLEEP 12/27/23 12/27/23 History
polyethylene glycol 3350 17 gram 17 g feeding tube DAILYPRN PRN 12/27/23 12/27/23 History
oral powder packet (Miralax) CONSTIPATION
Review of Systems
-
Unable to obtain full review of systems at this time due to: Patient Non Verbal
History Source: Patient
Physical Exam
Vital Signs
Vital Signs
Temp Pulse Resp BP Pulse Ox
98.2 F 85 17 182/98 96
12/28/23 15:30 12/28/23 15:30 12/28/23 15:30 12/28/23 15:30 12/28/23 15:30
Lab Results
WBC 8.7 10^3/uL (4.8-10.8) 12/27/23 16:10
RBC 1.88 10^6/uL (4.20-5.40) L 12/27/23 16:10
Plt Count 276 10^3/uL (130-400) 12/27/23 16:10
Sodium 131 mmol/L (135-145) L 12/28/23 04:13
Potassium 3.3 mmol/L (3.5-5.1) L 12/28/23 04:13
Chloride 93 mmol/L (98-107) L 12/28/23 04:13
Carbon Dioxide 31 mmol/L (22-30) H 12/28/23 04:13
BUN 49 mg/dl (7-17) H 12/28/23 04:13
Creatinine 2.7 mg/dL (0.6-1.0) H 12/28/23 04:13
eGFR 17.95 12/28/23 04:13
Glucose 97 mg/dl (70-99) 12/28/23 04:13
Calcium 8.9 mg/dl (8.4-10.2) 12/28/23 04:13
Albumin 2.9 g/dl (3.5-5.0) L 12/27/23 16:10
Physical Exam
General: Awake, No Distress, Nontoxic and Other
HEENT: PERRL, EOMI, Anicteric, Conjunctivae Clear, Ear/Nose Intact, Oropharynx Clear/Moist, Dentition Intact, Facial Symmetry, Neck Supple and Trachea Midline
Respiratory: Clear
Cardiac: S1/S2, Regular Rate/Rhythm and No Edema
Breast: Deferred by me
Abdomen: Soft, Nontender, Nondistended, Normal Bowel Sounds and No Hepatosplenomegaly
Rectal: Deferred by Provider
Genito-urinary: No Costovertebral Tender
Musculoskeletal: No Clubbing, No Cyanosis and No Edema
Skin: No Rash, Warm and Dry
Neuro: Other (unable to fully participate in neuro exam)
Psych: Mood/afflect pleasant
Data Reviewed
-
Labs: Labs Reviewed by me, Discussed with Physician, Discussed with Nurse and Discussed with Patient
Old Records: Reviewed
Assessment/Plan
-
Assessment:
ESRD on HD TTHS
Anemia c/f GIB
HypoK
HTN
Plan:
- plan for HD tomorrow per usual schedule
- will give LAURA with HD
- check iron studies
- we will dialyze on 4K bath, please hold on K repletion tomorrow.
[2023-12-28 16:23] LABS: Hematocrit 23.4 % (37.0-47.0); Hemoglobin 8.3 g/dL (12.0-16.0)
[2023-12-28 16:34] LABS: Glucose - Point of Care 108 mg/dl (70-99)
[2023-12-28] MEDS: APRESOLINE 50 MG TUBE ×2 (16:58→23:01)
--- NOTE | 2023-12-28 17:30 | CM ---
Per Josefina, patient LTC [facility].
HD- T--Sun
Peg tube.
aphasia with left sided weakness.
No other information available.
PCP; Dr Gloria.
Plan: back to [facility].
[2023-12-28] MEDS: LIPITOR 20 MG TUBE (21:19)
[2023-12-28 21:24] LABS: Glucose - Point of Care 97 mg/dl (70-99)
[2023-12-28 23:07] LABS: Glucose - Point of Care 103 mg/dl (70-99)
[2023-12-29] VITALS (9 sets, daily range): BP systolic 142–191; BP diastolic 55–79; PULSE 63–73
[2023-12-29] MEDS: APRESOLINE 5 MG IV (03:18)
[2023-12-29 05:43] LABS: Glucose - Point of Care 102 mg/dl (70-99)
[2023-12-29] MEDS: NOVOLOG FLEXPEN-LOW RESISTANCE SC ×3 (06:17→17:37)
[2023-12-29 07:12] LABS: Glucose - Point of Care 96 mg/dl (70-99)
[2023-12-29 07:13] LABS: Blood Urea Nitrogen 60 mg/dl (7-17); Calcium 8.9 mg/dl (8.4-10.2); Carbon Dioxide 28 mmol/L (22-30); Chloride 93 mmol/L (98-107); Glucose 87 mg/dl (70-99); Potassium 3.8 mmol/L (3.5-5.1); Sodium 128 mmol/L (135-145)
[2023-12-29 07:19] LABS: % Eosinophils 9.7 % (0-6); % Immature Granulocytes 0.2 % (0-0.5); % Lymphocytes 18.7 % (20.5-51.1); % Monocytes 8.4 % (1.7-9.3); Absolute Basophils 0.1 10^3/uL (0-0.2); Absolute Eosinophils 0.8 10^3/uL (0-0.7); Absolute Lymphocytes 1.5 10^3/uL (1.2-3.4); Absolute Monocytes 0.7 10^3/uL (0.1-0.6); Absolute Neutrophils 5.1 10^3/uL (1.4-6.5); Hematocrit 22.8 % (37.0-47.0); Hemoglobin 7.9 g/dL (12.0-16.0); Mean Corp Hgb Conc. 34.6 g/dL (33.0-37.0); Mean Corpuscular Hgb 28.8 pg (27.0-31.0); Mean Corpuscular Volume 83.2 fL (81.0-99.0); Mean Platelet Volume 9.6 fL (7.4-10.4); Nucleated Red Blood Cells % 0 %; Platelet Count 294 10^3/uL (130-400); Red Blood Cell Count 2.74 10^6/uL (4.20-5.40); Red Cell Dist. Width 15.3 % (11.5-14.5); White Blood Cell Count 8.3 10^3/uL (4.8-10.8)
--- NOTE | 2023-12-29 08:56 | W.PN.HOSP.TC ---
Addendum entered and electronically signed by Rolly Ojeda MD 12/29/23 14:02:
I personally performed a history and physical exam of the patient and discussed management with the resident. I reviewed the resident's note and agree with the documented findings and plan of care HPI/CC.
Patient was able to say 1 or 2 word answers. Not able to follow directions or move her arms. Seems to have expressive aphasia.
#GIB
Differential are broad
Exacerbated by Eliquis and ASA
Got 2 units of PRBC
PPI
NPO
Hold Eliquis
GI eval appreciated
Procedures when can be reached.
#ESRD HD T//Sun
Left IJ access
Got HD 12/27/23
Nephrology eval
#Hyponatremia- Treat at HD
#Hypokalemia- Replace 20 MEQ
#HTN-Multidrug resistant
OP Meds amlodipine 10 mg daily, hydralazine 50mg Q8H, clonidine patch and losartan 50 mg daily
Watch HR with clonidine
Will add PRN Hydralazine for BP over 170
BP better
#Seizure disorder-Continue lacosamide via PEG
#Atrial Fibrillation- Hold Eliquis. Rates mostly controlled with clonidine?
#H/O DVT-Hold Eliquis
#Hyperlipidemia-Continue Statin
#Dementia
#DM II -Insulin sliding scale q 6 hours. Hold Lantus 5 units HS
#H/O Dysphagia with PEG tube
#H/O Lung Ca per chart
#DVT PPX - SCDs
#Full code
D/W GI
D/W case management
Detailed discussion with the patient's daughter she was able to be reached on [phone]
She stated that mom was not much interactive a month ago when she saw her in the hospital at [facility].
We discussed that she is almost similar at this point. May be her new baseline.
Discussed about GI bleed and that GI needs to talk to her.
time more than 50 min
Original Note:
Today's Communication/Plan
-
Hemodialysis this a.m., recheck labs in afternoon
Assessment / Plan
Assessment / Plan
Impression:
This is a 73-year-old female with history of end-stage renal disease on hemodialysis Tuesdays and Saturdays, history of anemia secondary to chronic disease, history of DVT on anticoagulation, history of paroxysmal atrial fibrillation,
hypertension, epileptic seizures, dysphagia status post PEG tube, CAD with prior NSTEMI, CVA who presents to the emergency department for dialysis unit for a low blood count.
Plan:
#GI Bleed
- Suspect upper GI bleed in setting of anticoagulation and antiplatelet therapy.
-Rectum eval in ED shows black stool, heme positive
- admit to telemetry
- type and screen
-S/p transfuse 2 unit prbc
-Goal Hgb of 7. No evidence of volume overload currently. Two physician consent obtained as we are unable to get hold of family for consent.
- ppi iv gtt for now
- npo for now
- holding eliquis and aspirin
-Contact with pt daughter and POA was made
-POA confirmed code status
-POA will be contacted by GI for EGD consent
#ESRD
-HD today via left IJ permcath.
-Last completed session, today, 12/29/23.
-Cr on admission was 2.2
-Cr 3.7 today
- npo,
-Receive LAURA today during dialysis
- renal dose all medications
- today, no volume overload, hyperkalemia or acidosis requiring urgent HD
- continue calcitriol
#hyponatremia
-Na 128 on admission
-Na 128 today
- c/w ESRD, correct on HD.
-Fluid restriction with NPO for now
#hypokalemia
-Chronic, patient dialysis dependent
-Was 3.8 this morning, will be corrected on HD
#HTN
- continue amlodipine, hydralazine, clonidine and losartan with hold parameters
-Add PRN hydralizine with holding parameters
#Seizure d/o
- continue lacosamide and keppra via PEG
#DM II
- insulin sliding scale q 6 hours.
#dementia
-Pt speaking today but still not oreitned
-Aspiration preautions started
-head of bed raised to 30 degrees
-suction of secretions
DVT PPX - SCDs
Diet:NPO
Code:full code
Full code according to transfer data
Anticipated Discharge: > 48 hours
Subjective/Interval History
-
Date of Service: December 29, 2023
Required 1 as needed dose of hydralazine overnight
Patient on hemodialysis in room this a.m.
Objective Data
-
Labs:
Laboratory Results
12/29/23
06:31
WBC 8.3
Hgb 7.9 L
Hct 22.8 L
Plt Count 294
Sodium 128 L
Potassium 3.8
Chloride 93 L
Carbon Dioxide 28
BUN 60 H
Creatinine 3.7 H
Glucose 87
Calcium 8.9
Vital Signs:
Vital Signs
Temp Pulse Resp BP Pulse Ox
99.3 F 73 16 181/63 96
12/29/23 08:14 12/29/23 08:14 12/29/23 08:14 12/29/23 08:14 12/29/23 08:14
I&O
12/28/23 12/29/23 12/30/23
06:59 06:59 06:59
Intake Total 500 / 500 0 / 0
Balance 500 / 500 0 / 0
Review of Systems
-
Unable to obtain full review of systems at this time due to: Dementia and Patient Non-verbal
Physical Exam
-
General: No Apparent Distress and Comfortable
Respiratory: Wheezes, Crackles and Other (Could not auscultate due to mucus in trachea)
Cardiac: Regular Rhythm, S1/S2 and Murmur
GI: Soft, Nondistended and Normal Bowel Sounds
Musculoskeletal: No Edema
Skin: Warm and Dry
Neuro: Awake; Negative Alert, Oriented or AO x 3
Psych: Apparent Dementia; Negative Intact Judgement/Insight
Data Reviewed
-
Labs: Labs Reviewed by me and Discussed with Physician
[2023-12-29] MEDS: RETACRIT 8000 UNITS IV (09:32)
--- NOTE | 2023-12-29 10:41 | W.PN.NEPH.HD ---
Assessment
-
dialyzing well via catheter
no complaints
Progress Note - Hemodialysis
-
Date of Service: December 29, 2023
Duration: 30 minutes and 3 hours
Potassium Bath: 3
Calcium Bath: 2.5
Opti-Dialyzer: 160
Ultrafiltration: Other
Blood Flow: 400
Dialysate Flow: 600
--- NOTE | 2023-12-29 10:55 | W.PN.GI.CBS2 ---
Today's Communication / Plan
-
Hgb fairly stable after 2 units PRBC
No BMs recorded
Unable to reach to discuss plan of care, EGD/colonoscopy
Hold Eliquis
Assessment / Plan
-
73 y/o female with PMH of CVA with aphasia, dysphagia with PEG tube, ESRD on HD -, AOCD/anemia on oral iron, DVT on AC (eliquis 5 mg BID), PAF, CAD with prior STEMI on ASA 81 mg , HTN, DM, and Seizure disorder who presents to the ER with
decreased Hgb found during HD session, completed HD session on . Patient is non verbal. she has never been in this hospital. She was found to have Hgb of 5.9 with dark black stool that was OB positive. Patient was given 2 units of PRBC with
Hgb increasing to 8.4 and Eliquis was held. Patient has not had any BM or signs of bleeding since here. ER physician and IM Attending attempted to reach family without any success. I also tried to reach her spouse that is listed Art Nettles
[phone] (no answer and mail box has not been set up) and [phone] (busy signal constantly). The patient appears comfortable. When asked if she has abdominal pain, nausea or discomfort she nods her head no. She has no discomfort to exam. I
discussed with RN and patient has no signs of bleeding or BM. She had been getting meds via 16 Fr Ent[employer] Cook PEG tube. She had no signs of bleeding or return from this and has been receiving meds through this. This was aspirated and flushed without
any signs of blood, coffee grounds or bile. 90 cc water was used and flowed freely with only return of less then half. The patient was able to elaborate that she had no pain with this. Patient was started on Pantoprazole gtt. VSS. Awaiting repeat
Hgb at this time.
12/26- PRBC 2 units
Impression:
Anemia-> worsening unsure what baseline Hgb is. Hopefully Renal can provide insight.
OB positive stool
Chronic anticoagulation use for DVT/PAF (Eliquis 5 mg BID), held -> most likely last dose 12/27/23 am prior to HD.
ESRD on HD
Hx chronic anemia with hx of AOCD and iron def as patient on oral iron
CAD/STEMI on ASA 81 mg
Subjective
Subjective
Date of Service: December 29, 2023
Seen on HD. Responds somewhat to questions, but nonmeaningful responses.
Objective
Data Reviewed
Laboratory Data:
Laboratory Results
12/29/23 06:31
12/29/23 06:31
Laboratory Results
PT 15.3 Sec (11.4-14.6) H 12/27/23 16:10
INR 1.21 12/27/23 16:10
Total Bilirubin 0.3 mg/dl (0.2-1.3) 12/27/23 16:10
AST 56 U/L (14-36) H 12/27/23 16:10
ALT 13 U/L (0-35) 12/27/23 16:10
Alkaline Phosphatase 115 U/L (38-126) 12/27/23 16:10
Vital Signs and I&O:
Vital Signs
Temp Pulse Resp BP Pulse Ox
99.3 F 73 16 181/63 96
12/29/23 08:14 12/29/23 08:14 12/29/23 08:14 12/29/23 08:14 12/29/23 08:14
I&O
12/28/23 12/29/23 12/30/23
06:59 06:59 06:59
Intake Total 500 / 500 0 / 0
Balance 500 / 500 0 / 0
Physical Exam
Physical Exam
GI: Soft, Non Distended and Non Tender
[2023-12-29 11:10] LABS: Glucose - Point of Care 90 mg/dl (70-99)
[2023-12-29] MEDS: VIMPAT 100 MG TUBE ×2 (11:49→21:24)
[2023-12-29] MEDS: APRESOLINE 50 MG TUBE ×3 (11:49→22:31)
[2023-12-29] MEDS: FERROUS SULFATE ORAL LIQUID 300 MG TUBE (11:49)
[2023-12-29] MEDS: NORVASC 10 MG TUBE (11:50)
[2023-12-29] MEDS: COZAAR 50 MG TUBE (11:51)
--- NOTE | 2023-12-29 11:57 | CM ---
Addendum entered by Josefina Campoverde 12/29/23 15:35:
POA paperwork was provided by patient's daughter, Marcela and placed on chart.
Addendum entered by Josefina Campoverde 12/29/23 12:54:
social science manager spoke with nursing at [facility] and patient has only been at the facility for a few weeks, mental health case manager reached out again to patient's daughter, Marlyn Bolaños and son in law Hassan, to request a copy of POA paperwork for patient's
chart.
Original Note:
social science manager spoke with physician who was requesting alternative contact for patient, patient's spouse is listed as emergency contact [phone], , however patient's daughter Marlyn Bolaños [phone] states she is POA for
patient, physician made aware.
Plan; To follow with progress and assist with transfer back to [facility].
[2023-12-29] MEDS: PROTONIX IV 40 MG IV ×2 (14:34→21:24)
[2023-12-29] MEDS: NSS (PRESERVATIVE FREE) 10 ML IV ×2 (14:34→21:24)
[2023-12-29 17:37] LABS: Glucose - Point of Care 131 mg/dl (70-99)
--- NOTE | 2023-12-29 17:52 | W.PN.UPDATE ---
Update Note
Progress Note Update
I tried calling daughter Marcela's phone (was provided number by Dr Ojeda) and got voicemail. Left message asking if she and father would like us to pursue work up of anemia with EGD or colonoscopy. [phone]
[2023-12-29] MEDS: LIPITOR 20 MG TUBE (21:24)
[2023-12-29 23:57] LABS: Glucose - Point of Care 139 mg/dl (70-99)
[2023-12-30] VITALS (10 sets, daily range): BP systolic 157–183; BP diastolic 54–73
[2023-12-30] MEDS: NOVOLOG FLEXPEN-LOW RESISTANCE SC (00:02)
[2023-12-30] MEDS: APRESOLINE 5 MG IV (00:06)
--- NOTE | 2023-12-30 03:51 | PTCARENOTE ---
Pt w/ a small amount of bleeding around PEG site. Site cleansed w/ NSS. No residuals.
[2023-12-30] MEDS: APRESOLINE 10 MG IV ×2 (04:07→11:47)
[2023-12-30 05:49] LABS: Glucose - Point of Care 182 mg/dl (70-99)
[2023-12-30] MEDS: NOVOLOG FLEXPEN-LOW RESISTANCE 1 UNITS SC ×3 (05:56→18:03)
[2023-12-30 06:09] LABS: % Basophils 0.9 % (0-2); % Eosinophils 8.5 % (0-6); % Immature Granulocytes 0.6 % (0-0.5); % Monocytes 9.1 % (1.7-9.3); % Neutrophils 59.9 % (42.2-75.2); Absolute Basophils 0.1 10^3/uL (0-0.2); Absolute Eosinophils 0.8 10^3/uL (0-0.7); Absolute Immature Granulocytes 0.1 10^3/uL (0-0.05); Absolute Monocytes 0.9 10^3/uL (0.1-0.6); Absolute Neutrophils 5.6 10^3/uL (1.4-6.5); Hematocrit 23.7 % (37.0-47.0); Hemoglobin 8.4 g/dL (12.0-16.0); Mean Corp Hgb Conc. 35.4 g/dL (33.0-37.0); Mean Corpuscular Hgb 29.9 pg (27.0-31.0); Mean Corpuscular Volume 84.3 fL (81.0-99.0); Mean Platelet Volume 8.9 fL (7.4-10.4); Nucleated Red Blood Cells % 0 %; Platelet Count 267 10^3/uL (130-400); Red Blood Cell Count 2.81 10^6/uL (4.20-5.40); Red Cell Dist. Width 15.3 % (11.5-14.5); White Blood Cell Count 9.4 10^3/uL (4.8-10.8)
[2023-12-30 06:23] LABS: Blood Urea Nitrogen 32 mg/dl (7-17); Carbon Dioxide 30 mmol/L (22-30); Chloride 96 mmol/L (98-107); Glucose 172 mg/dl (70-99); Potassium 3.5 mmol/L (3.5-5.1); Sodium 130 mmol/L (135-145); eGFR 20.68
--- NOTE | 2023-12-30 09:30 | W.PN.HOSP.TC ---
Addendum entered and electronically signed by Rolly Ojeda MD 12/30/23 15:14:
I personally performed a history and physical exam of the patient and discussed management with the resident. I reviewed the resident's note and agree with the documented findings and plan of care HPI/CC.
Seems to have expressive aphasia.
#GIB
Differential are broad
Exacerbated by Eliquis and ASA
Got 2 units of PRBC
PPI
Hold Eliquis
NPO after MN for EGD if can get consent.
#ESRD HD T//Sun
Left IJ access
Got HD 12/29/23
Nephrology following
#Hyponatremia- Treat at HD
#Hypokalemia Resolved
#HTN-Multidrug resistant
OP Meds amlodipine 10 mg daily, hydralazine 50mg Q8H, clonidine patch and Increase Losartan to 100 mg
Watch HR with clonidine
Will add PRN Hydralazine for BP over 170
BP better
#Seizure disorder-Continue lacosamide via PEG
#Atrial Fibrillation- Hold Eliquis. Rates mostly controlled with clonidine?
#H/O DVT-Hold Eliquis
#Hyperlipidemia-Continue Statin
#Dementia
#DM II -Insulin sliding scale q 6 hours. Hold Lantus 5 units HS . NPH 6 units now.
#H/O Dysphagia with PEG tube
#H/O Lung Ca per chart
#Diet- TF started
#DVT PPX - SCDs
#Full code
D/W GI
They cannot reach daughter for consent
Original Note:
Today's Communication/Plan
-
Obtain POA consent for EGD
Assessment / Plan
Assessment / Plan
Impression:
This is a 73-year-old female with history of end-stage renal disease on hemodialysis Tuesdays and Saturdays, history of anemia secondary to chronic disease, history of DVT on anticoagulation, history of paroxysmal atrial fibrillation,
hypertension, epileptic seizures, dysphagia status post PEG tube, CAD with prior NSTEMI, CVA who presents to the emergency department for dialysis unit for a low blood count.
Plan:
#GI Bleed
- Suspect upper GI bleed in setting of anticoagulation and antiplatelet therapy.
-Rectum eval in ED shows black stool, heme positive
- admit to telemetry
- type and screen
-S/p transfuse 2 unit prbc
-Goal Hgb of 7. No evidence of volume overload currently. Two physician consent obtained as we are unable to get hold of family for consent.
-Hemoglobin 8.4 this a.m.
- ppi iv gtt for now
- npo for now
- holding eliquis and aspirin
-Contact with pt daughter and POA was made
-POA confirmed code status
-GI following
-POA will be contacted by GI for EGD consent
#ESRD
-HD today via left IJ PermCath.
-Last completed session, today, 12/29/23.
-Cr on admission was 2.2
-Renal labs improved after dialysis
- npo,
-Receive LAURA today during dialysis
- renal dose all medications
- today, no volume overload, hyperkalemia or acidosis requiring urgent HD
- continue calcitriol
#hyponatremia
-Na 128 on admission
-Na 130 today
- c/w ESRD, correct on HD.
-Fluid restriction with NPO for now
#hypokalemia
-Chronic, patient dialysis dependent
-Was 3.8 this morning, will be corrected on HD
#HTN
- continue amlodipine, hydralazine, clonidine and losartan with hold parameters
-Add PRN hydralazine with holding parameters
-Losartan increased to 100 mg tube
#Seizure d/o
- continue lacosamide and Keppra via PEG
-Planning to order EEG tomorrow to evaluate for intermittent seizures
#DM II
- insulin sliding scale q 6 hours.
#dementia
-Pt speaking today but still not oriented
-Aspiration precautions started
-head of bed raised to 30 degrees
-suction of secretions
DVT PPX - SCDs
Diet:NPO
Code:full code
Full code according to transfer data
Anticipated Discharge: 24 - 48 hours
Subjective/Interval History
-
Date of Service: December 30, 2023
No acute events overnight
Objective Data
-
Labs:
Laboratory Results
12/30/23
06:01
WBC 9.4
Hgb 8.4 L
Hct 23.7 L
Plt Count 267
Sodium 130 L
Potassium 3.5
Chloride 96 L
Carbon Dioxide 30
BUN 32 H
Creatinine 2.4 H
Glucose 172 H
Calcium 9.0
Vital Signs:
Vital Signs
Temp Pulse Resp BP Pulse Ox
98.0 F 65 18 177/54 99
12/30/23 08:04 12/30/23 08:04 12/30/23 08:04 12/30/23 08:04 12/30/23 08:04
I&O
12/29/23 12/30/23 12/31/23
06:59 06:59 06:59
Intake Total 0 / 0 765 / 765
Output Total 0 / 0
Balance 0 / 0 765 / 765
Review of Systems
-
Unable to obtain full review of systems at this time due to: Dementia and Patient Non-verbal
Physical Exam
-
General: No Apparent Distress and Comfortable
Respiratory: Other (Low inspiratory effort, could not auscultate)
Cardiac: Regular Rhythm, S1/S2 and Murmur
GI: Soft, Nondistended and Normal Bowel Sounds
Skin: Warm and Dry
Neuro: Awake; Negative Alert, Oriented or AO x 3
Psych: Apparent Dementia; Negative Intact Judgement/Insight
Data Reviewed
-
Labs: Labs Reviewed by me and Discussed with Physician
[2023-12-30] MEDS: COZAAR 50 MG TUBE ×2 (09:33→13:04)
[2023-12-30] MEDS: NSS (PRESERVATIVE FREE) 10 ML IV ×2 (09:34→20:27)
[2023-12-30] MEDS: NORVASC 10 MG TUBE (09:34)
[2023-12-30] MEDS: APRESOLINE 50 MG TUBE ×2 (09:35→16:02)
[2023-12-30] MEDS: VIMPAT 100 MG TUBE ×2 (09:37→20:27)
[2023-12-30] MEDS: FERROUS SULFATE ORAL LIQUID 300 MG TUBE (09:37)
[2023-12-30] MEDS: PROTONIX IV 40 MG IV ×2 (09:37→20:27)
[2023-12-30 12:43] LABS: Glucose - Point of Care 198 mg/dl (70-99)
--- NOTE | 2023-12-30 13:21 | W.PN.NEPH.PH ---
Today's Communication / Plan
-
- HD sunday
Assessment/Plan
-
Assessment:
ESRD on HD TTHS
Anemia c/f GIB
HypoK
HTN
Plan:
- plan for HD Sunday per usual schedule
- will give LAURA with HD
- check iron studies
- we will dialyze on 4K bath, okay for gentle K repletion tomorrow if needed
-
-
Date of Service: December 30, 2023
CC / HPI / ROS
-
Chief Complaint:
ESRD
History of Present Illness:
HD TThS
GIB
Review of Systems:
resting comfortably
Labs
-
Labs:
WBC 9.4 10^3/uL (4.8-10.8) 12/30/23 06:01
RBC 2.81 10^6/uL (4.20-5.40) L 12/30/23 06:01
Hgb 8.4 g/dL (12.0-16.0) L 12/30/23 06:01
Hct 23.7 % (37.0-47.0) L 12/30/23 06:01
Plt Count 267 10^3/uL (130-400) 12/30/23 06:01
Sodium 130 mmol/L (135-145) L 12/30/23 06:01
Potassium 3.5 mmol/L (3.5-5.1) 12/30/23 06:01
Chloride 96 mmol/L (98-107) L 12/30/23 06:01
Carbon Dioxide 30 mmol/L (22-30) 12/30/23 06:01
BUN 32 mg/dl (7-17) H 12/30/23 06:01
Creatinine 2.4 mg/dL (0.6-1.0) H 12/30/23 06:01
eGFR 20.68 12/30/23 06:01
Glucose 172 mg/dl (70-99) H 12/30/23 06:01
Calcium 9.0 mg/dl (8.4-10.2) 12/30/23 06:01
Albumin 2.9 g/dl (3.5-5.0) L 12/27/23 16:10
Physical Exam
-
Vital Signs:
Vital Signs
Temp Pulse Resp BP Pulse Ox
97.6 F 66 17 163/65 97
12/30/23 11:21 12/30/23 13:04 12/30/23 11:21 12/30/23 13:04 12/30/23 11:21
Cardiovascular:: Regular rate and rhythm
Respiratory:: Bilateral: CTA
Lung Excursion:: Normal
Abdomen:: Nontender and Soft
Bowel Sounds:: Normal
Extremity Edema:: None: Bilateral:
Castañeda Catheter: No
--- NOTE | 2023-12-30 14:28 | W.PN.GI.CBS2 ---
Today's Communication / Plan
-
I contacted daughter Marcela and obtained consent for EGD, and if negative, colonoscopy after that
Hold TF after MN
Hgb stable after 2 units PRBC 12/26
Assessment / Plan
-
73 y/o female with PMH of CVA with aphasia, dysphagia with PEG tube, ESRD on HD --Sun, AOCD/anemia on oral iron, DVT on AC (eliquis 5 mg BID), PAF, CAD with prior STEMI on ASA 81 mg , HTN, DM, and Seizure disorder who presents to the ER with
decreased Hgb found during HD session, completed HD session on . Patient is non verbal. she has never been in this hospital. She was found to have Hgb of 5.9 with dark black stool that was OB positive. Patient was given 2 units of PRBC with
Hgb increasing to 8.4 and Eliquis was held. Patient has not had any BM or signs of bleeding since here. ER physician and IM Attending attempted to reach family without any success. I also tried to reach her spouse that is listed [employer]
[phone] (no answer and mail box has not been set up) and [phone] (busy signal constantly). The patient appears comfortable. When asked if she has abdominal pain, nausea or discomfort she nods her head no. She has no discomfort to exam. I
discussed with RN and patient has no signs of bleeding or BM. She had been getting meds via [address] [employer] PEG tube. She had no signs of bleeding or return from this and has been receiving meds through this. This was aspirated and flushed without
any signs of blood, coffee grounds or bile. 90 cc water was used and flowed freely with only return of less then half. The patient was able to elaborate that she had no pain with this. Patient was started on Pantoprazole gtt. VSS. Awaiting repeat
Hgb at this time.
12/26- PRBC 2 units
Impression:
Anemia-> worsening unsure what baseline Hgb is. Hopefully Renal can provide insight.
OB positive stool
Chronic anticoagulation use for DVT/PAF (Eliquis 5 mg BID), held -> most likely last dose 12/27/23 am prior to HD.
ESRD on HD
Hx chronic anemia with hx of AOCD and iron def as patient on oral iron
CAD/STEMI on ASA 81 mg
Subjective
Subjective
Date of Service: December 30, 2023
Remains nonverbal. No apparent distress
Objective
Data Reviewed
Laboratory Data:
Laboratory Results
12/30/23 06:01
12/30/23 06:01
Laboratory Results
PT 15.3 Sec (11.4-14.6) H 12/27/23 16:10
INR 1.21 12/27/23 16:10
Total Bilirubin 0.3 mg/dl (0.2-1.3) 12/27/23 16:10
AST 56 U/L (14-36) H 12/27/23 16:10
ALT 13 U/L (0-35) 12/27/23 16:10
Alkaline Phosphatase 115 U/L (38-126) 12/27/23 16:10
Vital Signs and I&O:
Vital Signs
Temp Pulse Resp BP Pulse Ox
97.6 F 66 17 163/65 97
12/30/23 11:21 12/30/23 13:04 12/30/23 11:21 12/30/23 13:04 12/30/23 11:21
I&O
12/29/23 12/30/23 12/31/23
06:59 06:59 06:59
Intake Total 0 / 0 765 / 765
Output Total 0 / 0
Balance 0 / 0 765 / 765
Physical Exam
Physical Exam
GI: Soft, Non Distended and Non Tender
[2023-12-30 15:58] LABS: Glucose - Point of Care 181 mg/dl (70-99)
[2023-12-30] MEDS: HUMULIN N KWIKPEN 6 UNITS SC (16:02)
[2023-12-30 17:54] LABS: Glucose - Point of Care 185 mg/dl (70-99)
[2023-12-30] MEDS: LIPITOR 20 MG TUBE (20:27)
[2023-12-31] VITALS (10 sets, daily range): BP systolic 10–194; BP diastolic 46–70
--- NOTE | 2023-12-31 00:04 | PTCARENOTE ---
tube feeding held per orders anticipation of egd
[2023-12-31 00:07] LABS: Glucose - Point of Care 153 mg/dl (70-99)
[2023-12-31] MEDS: NOVOLOG FLEXPEN-LOW RESISTANCE 1 UNITS SC ×4 (00:17→19:16)
[2023-12-31] MEDS: APRESOLINE 50 MG TUBE ×3 (00:18→15:14)
[2023-12-31] MEDS: APRESOLINE 10 MG IV ×2 (03:35→16:49)
[2023-12-31 05:11] LABS: % Basophils 0.7 % (0-2); % Eosinophils 12.8 % (0-6); % Immature Granulocytes 0.9 % (0-0.5); % Lymphocytes 23.9 % (20.5-51.1); % Monocytes 8.7 % (1.7-9.3); Absolute Basophils 0.1 10^3/uL (0-0.2); Absolute Eosinophils 1.1 10^3/uL (0-0.7); Absolute Immature Granulocytes 0.1 10^3/uL (0-0.05); Absolute Lymphocytes 2.1 10^3/uL (1.2-3.4); Absolute Monocytes 0.8 10^3/uL (0.1-0.6); Absolute Neutrophils 4.5 10^3/uL (1.4-6.5); Hematocrit 22.9 % (37.0-47.0); Hemoglobin 7.8 g/dL (12.0-16.0); Mean Corp Hgb Conc. 34.1 g/dL (33.0-37.0); Mean Corpuscular Hgb 29.1 pg (27.0-31.0); Mean Corpuscular Volume 85.4 fL (81.0-99.0); Mean Platelet Volume 9.5 fL (7.4-10.4); Nucleated Red Blood Cells % 0 %; Platelet Count 271 10^3/uL (130-400); Red Blood Cell Count 2.68 10^6/uL (4.20-5.40); Red Cell Dist. Width 14.6 % (11.5-14.5); White Blood Cell Count 8.6 10^3/uL (4.8-10.8)
[2023-12-31 05:28] LABS: Glucose - Point of Care 167 mg/dl (70-99)
[2023-12-31 05:32] LABS: Blood Urea Nitrogen 47 mg/dl (7-17); Carbon Dioxide 29 mmol/L (22-30); Chloride 95 mmol/L (98-107); Glucose 128 mg/dl (70-99); Potassium 3.1 mmol/L (3.5-5.1); Sodium 128 mmol/L (135-145); eGFR 14.64
[2023-12-31] MEDS: PROTONIX IV 40 MG IV ×2 (08:07→20:00)
[2023-12-31] MEDS: NSS (PRESERVATIVE FREE) 10 ML IV ×2 (08:08→20:00)
[2023-12-31 08:13] LABS: Glucose - Point of Care 152 mg/dl (70-99)
--- NOTE | 2023-12-31 08:52 | W.PN.UPDATE ---
Update Note
Progress Note Update
EGD done
PEG in stomach
Otherwise normal
No bleeding site identified
REC:
Colonoscopy tomorrow
I consented daughter yesterday and left VM today
[2023-12-31 09:02] LABS: Glucose - Point of Care 158 mg/dl (70-99)
--- NOTE | 2023-12-31 09:53 | W.PN.HOSP.TC ---
Addendum entered and electronically signed by Adonis Hall MD 12/31/23 11:51:
I saw and evaluated the patient. I reviewed the resident�s note and agree with findings and plan as documented in the resident�s note.
Patient nonverbal.
No acute distress, awake and alert
Regular rate and rhythm, normal S1-S2
Clear to auscultation bilaterally
Positive bowel sounds, soft, nontender, nondistended
Acute blood loss anemia:
-Exacerbated by Eliquis which remains on hold
-Heme positive stool on admission but the patient was on enteral iron
-Hemoglobin stable s/p 2U pRBCs
-EDG unremarkable and without source of bleeding
-colonoscopy tomorrow
-NS @ 40cc/hr while NPO
DM2:
-resume Lantus
-cont SSI/accuchecks
Essential hypertension:
-Multidrug-resistant
-Continue Norvasc/clonidine/hydralazine/losartan
ESRD:
-cont HD
Total time spent on today's encounter was 50 minutes which included time spent in counseling the patient/family regarding diagnosis and treatment plan as listed above, goals of care, and symptom management. Case was discussed with nursing staff,
specialists, and care coordinators/case management. All labs and imaging personally reviewed by me. Remainder the time spent in detailed review of previous records, lab data, imaging, and other medical provider documentation.
Original Note:
Today's Communication/Plan
-
EGD today
Prepare for dialysis and potential colonoscopy tomorrow
Assessment / Plan
Assessment / Plan
Impression:
This is a 73-year-old female with history of end-stage renal disease on hemodialysis Tuesdays and Saturdays, history of anemia secondary to chronic disease, history of DVT on anticoagulation, history of paroxysmal atrial fibrillation,
hypertension, epileptic seizures, dysphagia status post PEG tube, CAD with prior NSTEMI, CVA who presents to the emergency department for dialysis unit for a low blood count.
Plan:
#GI Bleed
- Suspect upper GI bleed in setting of anticoagulation and antiplatelet therapy.
-Rectum eval in ED shows black stool, heme positive
- admit to telemetry
- type and screen
-S/p transfuse 2 unit prbc
-Goal Hgb of 7. No evidence of volume overload currently. Two physician consent obtained as we are unable to get hold of family for consent.
-Hemoglobin 7.8 this a.m.
- ppi iv gtt for now
- npo for now
- holding eliquis and aspirin
-Contact with pt daughter and POA was made
-POA confirmed code status
-GI following
-POA was contacted and granted consent for EGD and colonoscopy
-EGD today
-Tentatively planning colonoscopy tomorrow if EGD is normal
#ESRD
-HD today via left IJ PermCath.
-Last completed session, 12/29/23.
-Next dialysis session planned for 01/01/2024
-Cr on admission was 2.2
-Renal labs improved after dialysis
- npo,
-Receive LAURA today during dialysis
- renal dose all medications
- today, no volume overload, hyperkalemia or acidosis requiring urgent HD
- continue calcitriol
#hyponatremia
-Na 128 on admission
-Na 128 today
- c/w ESRD, correct on HD.
-Fluid restriction with NPO for now
#hypokalemia
-Chronic, patient dialysis dependent
-Was 3.1 this morning, will be corrected on HD
-Nephrology recommends gentle repletion as patient will be getting potassium bath during dialysis tomorrow
-Will give 20 mEq potassium through tube
#HTN
- continue amlodipine, hydralazine, clonidine and losartan with hold parameters
-Add PRN hydralazine with holding parameters
-Losartan increased to 100 mg tube
#Seizure d/o
- continue lacosamide and Keppra via PEG
-Planning to order EEG tomorrow to evaluate for intermittent seizures
#DM II
- insulin sliding scale q 6 hours.
#dementia
-Pt speaking today but still not oriented
-Aspiration precautions started
-head of bed raised to 30 degrees
-suction of secretions
DVT PPX - SCDs
Diet:NPO
Code:full code
Full code according to transfer data
Anticipated Discharge: 24 - 48 hours
Subjective/Interval History
-
Date of Service: December 31, 2023
No acute events overnight
Patient received EGD today, clear, plan for colonoscopy tomorrow
Objective Data
-
Labs:
Laboratory Results
12/31/23
04:43
WBC 8.6
Hgb 7.8 L
Hct 22.9 L
Plt Count 271
Sodium 128 L
Potassium 3.1 L
Chloride 95 L
Carbon Dioxide 29
BUN 47 H
Creatinine 3.2 H
Glucose 128 H
Calcium 9.0
Vital Signs:
Vital Signs
Temp Pulse Resp BP Pulse Ox
97.3 F 57 12 156/48 100
12/31/23 08:55 12/31/23 09:38 12/31/23 09:38 12/31/23 09:38 12/31/23 09:38
I&O
12/30/23 12/31/23 01/01/24
06:59 06:59 06:59
Intake Total 775 / 765 1714 / 1714
Output Total 0 / 0
Balance 765 / 765 1714 / 1714
Review of Systems
-
Unable to obtain full review of systems at this time due to: Dementia and Patient Non-verbal
Physical Exam
-
General: Appears Chronically Ill; Negative Conversant
Respiratory: Other (Could not auscultate due to poor respiratory effort)
Cardiac: Regular Rhythm, S1/S2 and Murmur
GI: Soft, Nondistended and Normal Bowel Sounds
Neuro: Negative Awake, Alert, Oriented or AO x 3
Psych: Negative Intact Judgement/Insight
Data Reviewed
-
Labs: Labs Reviewed by me and Discussed with Physician
[2023-12-31] MEDS: NORVASC 10 MG TUBE (10:22)
[2023-12-31] MEDS: COZAAR 100 MG TUBE (10:22)
[2023-12-31] MEDS: VIMPAT 100 MG TUBE ×2 (10:22→20:00)
[2023-12-31] MEDS: FERROUS SULFATE ORAL LIQUID 300 MG TUBE (10:22)
--- NOTE | 2023-12-31 10:25 | CM ---
CM reviewed patient's chart. CM introduced self and role. Patient is non verbal. Patient has a PEG tube. Daughter is contact. Plan is for patient to have a colonoscopy today.
DISCHARGE DISPOSITION:
Return to [facility], long-term care.
[2023-12-31 11:47] LABS: Glucose - Point of Care 179 mg/dl (70-99)
[2023-12-31] MEDS: KCL ELIXIR 20 MEQ TUBE (12:03)
[2023-12-31] MEDS: NSS 1000 IV (13:47)
--- NOTE | 2023-12-31 14:39 | W.PN.NEPH.PH ---
Today's Communication / Plan
-
HD tomorrow
Assessment/Plan
-
Assessment:
ESRD on HD TTHS
Anemia c/f GIB
HypoK
HTN
Plan:
Pt is from [facility] seem to be MWF schedule
HD tomorrow and then Sunday to keep her on schedule
monitor h/h
for colonoscopy tomorrow
- we will dialyze on 4K bath, okay for K repletion today
on gentle IVF while NPO
-
-
Date of Service: December 31, 2023
CC / HPI / ROS
-
Chief Complaint:
ESRD
History of Present Illness:
hb stable, BP stable
k i slow at 3.1, sodium low 128
Review of Systems:
resting comfortably
non verbal
Labs
-
Labs:
WBC 8.6 10^3/uL (4.8-10.8) 12/31/23 04:43
RBC 2.68 10^6/uL (4.20-5.40) L 12/31/23 04:43
Hgb 7.8 g/dL (12.0-16.0) L 12/31/23 04:43
Hct 22.9 % (37.0-47.0) L 12/31/23 04:43
Plt Count 271 10^3/uL (130-400) 12/31/23 04:43
Sodium 128 mmol/L (135-145) L 12/31/23 04:43
Potassium 3.1 mmol/L (3.5-5.1) L 12/31/23 04:43
Chloride 95 mmol/L (98-107) L 12/31/23 04:43
Carbon Dioxide 29 mmol/L (22-30) 12/31/23 04:43
BUN 47 mg/dl (7-17) H 12/31/23 04:43
Creatinine 3.2 mg/dL (0.6-1.0) H 12/31/23 04:43
eGFR 14.64 12/31/23 04:43
Glucose 128 mg/dl (70-99) H 12/31/23 04:43
Calcium 9.0 mg/dl (8.4-10.2) 12/31/23 04:43
Albumin 2.9 g/dl (3.5-5.0) L 12/27/23 16:10
Physical Exam
-
Vital Signs:
Vital Signs
Temp Pulse Resp BP Pulse Ox
98.8 F 63 16 102/61 95
12/31/23 11:03 12/31/23 11:03 12/31/23 11:03 12/31/23 11:03 12/31/23 11:03
Cardiovascular:: Regular rate and rhythm
Respiratory:: Bilateral: CTA
Lung Excursion:: Normal
Abdomen:: Nontender and Soft
Extremity Edema:: None: Bilateral:
Castañeda Catheter: No
[2023-12-31] MEDS: NULYTELY SOLUTION 4 LITERS TUBE (15:11)
[2023-12-31] MEDS: KCL 270 MEQ IV (15:11)
--- NOTE | 2023-12-31 16:54 | PTCARENOTE ---
Golyte prep started at 1511. 240ml pushed through tube approximately every 10-20 min. No BM yet.
[2023-12-31 18:16] LABS: Glucose - Point of Care 166 mg/dl (70-99)
--- NOTE | 2023-12-31 19:19 | PTCARENOTE ---
After changing patient, Pt began to projectile vomit approximately 200ml of golyte prep. Pt placed upright and cleaned. No further vomiting noted at this time.
[2023-12-31] MEDS: LIPITOR 20 MG TUBE (20:00)
[2023-12-31 22:59] LABS: Glucose - Point of Care 154 mg/dl (70-99)
[2024-01-01] VITALS (7 sets, daily range): BP systolic 124–208; BP diastolic 48–79
[2024-01-01] MEDS: LANTUS 0.05 UNITS SC (00:25)
[2024-01-01] MEDS: APRESOLINE 50 MG TUBE ×2 (00:26→15:44)
[2024-01-01] MEDS: NOVOLOG FLEXPEN-LOW RESISTANCE 1 UNITS SC (00:33)
[2024-01-01] MEDS: APRESOLINE 10 MG IV ×2 (02:34→06:18)
[2024-01-01 05:22] LABS: % Basophils 0.7 % (0-2); % Eosinophils 7.4 % (0-6); % Immature Granulocytes 0.7 % (0-0.5); % Lymphocytes 13.3 % (20.5-51.1); % Monocytes 7.5 % (1.7-9.3); % Neutrophils 70.4 % (42.2-75.2); Absolute Basophils 0.1 10^3/uL (0-0.2); Absolute Eosinophils 0.8 10^3/uL (0-0.7); Absolute Immature Granulocytes 0.1 10^3/uL (0-0.05); Absolute Lymphocytes 1.5 10^3/uL (1.2-3.4); Absolute Monocytes 0.8 10^3/uL (0.1-0.6); Absolute Neutrophils 7.8 10^3/uL (1.4-6.5); Hemoglobin 8.4 g/dL (12.0-16.0); Mean Corpuscular Hgb 29.5 pg (27.0-31.0); Mean Corpuscular Volume 84.2 fL (81.0-99.0); Mean Platelet Volume 9.1 fL (7.4-10.4); Nucleated Red Blood Cells % 0 %; Platelet Count 291 10^3/uL (130-400); Red Blood Cell Count 2.85 10^6/uL (4.20-5.40); Red Cell Dist. Width 14.7 % (11.5-14.5)
[2024-01-01 05:49] LABS: Blood Urea Nitrogen 50 mg/dl (7-17); Carbon Dioxide 22 mmol/L (22-30); Chloride 100 mmol/L (98-107); Glucose 94 mg/dl (70-99); Potassium 3.6 mmol/L (3.5-5.1); Sodium 133 mmol/L (135-145); eGFR 11.91
[2024-01-01 06:02] LABS: Glucose - Point of Care 110 mg/dl (70-99)
[2024-01-01] MEDS: NOVOLOG FLEXPEN-LOW RESISTANCE SC ×3 (06:04→18:03)
[2024-01-01] MEDS: COZAAR 100 MG TUBE (06:18)
--- NOTE | 2024-01-01 07:55 | W.PN.HOSP.TC ---
Addendum entered and electronically signed by Adonis Hall MD 01/01/24 12:30:
I saw and evaluated the patient. I reviewed the resident�s note and agree with findings and plan as documented in the resident�s note.
Patient nonverbal.
No acute distress, awake and alert
remains Regular rate and rhythm, normal S1-S2
remains Clear to auscultation bilaterally
remains Positive bowel sounds, soft, nontender, nondistended
CN2-12 intact
Acute blood loss anemia:
-Exacerbated by Eliquis which remains on hold
-Heme positive stool on admission but the patient was on enteral iron
-Hemoglobin stable s/p 2U pRBCs
-EDG unremarkable and without source of bleeding
-colonoscopy tomorrow
-NS @ 40cc/hr while NPO
DM2:
-resume Lantus
-cont SSI/accuchecks
Essential hypertension:
-Multidrug-resistant
-Continue Norvasc/clonidine/hydralazine/losartan
ESRD:
-cont HD
Original Note:
Today's Communication/Plan
-
Get hemodialysis today
Prep for colonoscopy tomorrow
Assessment / Plan
Assessment / Plan
Impression:
This is a 73-year-old female with history of end-stage renal disease on hemodialysis Tuesdays and Saturdays, history of anemia secondary to chronic disease, history of DVT on anticoagulation, history of paroxysmal atrial fibrillation,
hypertension, epileptic seizures, dysphagia status post PEG tube, CAD with prior NSTEMI, CVA who presents to the emergency department for dialysis unit for a low blood count.
Plan:
#GI Bleed
- Suspect upper GI bleed in setting of anticoagulation and antiplatelet therapy.
-Rectum eval in ED shows black stool, heme positive
- admit to telemetry
- type and screen
-S/p transfuse 2 unit prbc
-Goal Hgb of 7. No evidence of volume overload currently. Two physician consent obtained as we are unable to get hold of family for consent.
-Hemoglobin 8.4 this a.m. improving
- ppi iv gtt for now
- npo for now
- holding eliquis and aspirin
-Contact with pt daughter and POA was made
-POA confirmed code status
-GI following
-POA was contacted and granted consent for EGD and colonoscopy
-EGD yesterday, no bleeding
-Tentatively planning colonoscopy tomorrow
#ESRD
-HD today via left IJ PermCath.
-Last completed session, 12/29/23.
-Next dialysis session planned for today 01/01/2024, as well as tomorrow 01/02/2024 to get her back on track for her Sunday dialysis
-Cr on admission was 2.2
-Renal labs improved after dialysis
- npo,
-Receive LAURA today during dialysis
- renal dose all medications
- today, no volume overload, hyperkalemia or acidosis requiring urgent HD
- continue calcitriol
#hyponatremia
-Na 128 on admission
-Na 133 today
- c/w ESRD, correct on HD.
-Fluid restriction with NPO for now
#hypokalemia
-Chronic, patient dialysis dependent
-Was 3.6 this morning, will be corrected on HD
-Nephrology recommends gentle repletion as patient will be getting potassium bath during dialysis tomorrow
-Status post 20 mEq potassium through tube, will continue to monitor and replete as needed
#HTN
- continue amlodipine, hydralazine, clonidine and losartan with hold parameters
-Add PRN hydralazine with holding parameters
-Losartan increased to 100 mg tube
#Seizure d/o
- continue lacosamide and Keppra via PEG
-EEG pending to evaluate for intermittent seizures
#DM II
- insulin sliding scale q 6 hours.
-Lantus 5 units subcu
#dementia
-Pt speaking today but still not oriented
-Aspiration precautions started
-head of bed raised to 30 degrees
-suction of secretions
DVT PPX - SCDs
Diet:NPO
Code:full code
Full code according to transfer data
Anticipated Discharge: > 48 hours
Subjective/Interval History
-
Date of Service: January 01, 2024
Colonoscopy deferred for today, planning for tomorrow
Hemodialysis planned for today, and for tomorrow
Patient more talkative today, answering questions
Patient reports no pain and no complaints
Objective Data
-
Labs:
Laboratory Results
01/01/24
05:01
WBC 11.0 H
Hgb 8.4 L
Hct 24.0 L
Plt Count 291
Sodium 133 L
Potassium 3.6
Chloride 100
Carbon Dioxide 22
BUN 50 H
Creatinine 3.8 H
Glucose 94
Calcium 9.0
Vital Signs:
Vital Signs
Temp Pulse Resp BP Pulse Ox
98.1 F 74 19 194/79 99
01/01/24 03:00 01/01/24 06:18 01/01/24 03:00 01/01/24 06:18 01/01/24 03:00
I&O
12/31/23 01/01/24 01/02/24
06:59 06:59 06:59
Intake Total 1715 / 1715 1200 / 1200
Balance 1715 / 1715 1200 / 1200
Review of Systems
-
Unable to obtain full review of systems at this time due to: Dementia and Patient Non-verbal
Physical Exam
-
General: Well Developed, No Apparent Distress and Comfortable
Respiratory: Other (Could not auscultate due to poor respiratory effort)
Cardiac: Regular Rhythm, S1/S2 and Murmur
GI: Soft and Normal Bowel Sounds
Genito-urinary: Castañeda
Neuro: Awake; Negative Alert, Oriented or AO x 3
Psych: Calm; Negative Intact Judgement/Insight
Data Reviewed
-
Labs: Labs Reviewed by me and Discussed with Physician
[2024-01-01] MEDS: APRESOLINE TUBE (08:44)
[2024-01-01] MEDS: NORVASC 10 MG TUBE (08:44)
[2024-01-01] MEDS: FERROUS SULFATE ORAL LIQUID TUBE (08:44)
[2024-01-01] MEDS: VIMPAT 100 MG TUBE ×2 (08:45→20:43)
[2024-01-01] MEDS: NSS (PRESERVATIVE FREE) 10 ML IV ×2 (08:45→20:43)
[2024-01-01] MEDS: PROTONIX IV 40 MG IV ×2 (08:45→20:43)
--- NOTE | 2024-01-01 10:03 | VATNOTE ---
Pt has L arm midline. L lower arm noted to be swollen by this VAT RN upon assessment. Original UAC was 28 cm at time of midline insertion and is now 30 cm. TT sent to Dr. Nicole regarding concern for clot. U/S order placed. Will continue to monitor.
[2024-01-01] MEDS: RETACRIT 10000 UNITS IV (11:54)
[2024-01-01 12:09] LABS: Glucose - Point of Care 92 mg/dl (70-99)
--- NOTE | 2024-01-01 14:51 | W.PN.NEPH.HD ---
Assessment
-
pt seen during HD
vitals stable
UF as tolerates
CVC functions well
plan C scope tomorrow
gentle IVF while NPO other than prep
next HD but should be back on MWF schedule after
high dose LAURA for anemia
Progress Note - Hemodialysis
-
Date of Service: January 01, 2024
Duration: 30 minutes and 3 hours
Potassium Bath: 3
Calcium Bath: 2.5
Opti-Dialyzer: 160
Ultrafiltration: Other (2-2.5kg)
Blood Flow: 400
Dialysate Flow: 600
Heparin: no
EPO: [id number]
[2024-01-01] MEDS: NSS 1000 IV (15:44)
[2024-01-01] MEDS: NULYTELY SOLUTION 4 LITERS PO (15:44)
--- NOTE | 2024-01-01 16:26 | CM ---
HD today.
[facility] updated.
Plan: [facility] when stable.
--- NOTE | 2024-01-01 17:41 | PTCARENOTE ---
At present, pt tolerating golyte prep through her peg tube. No stools noted yet. Will continue to administer 240ml every 20-30 min.
[2024-01-01 17:51] LABS: Glucose - Point of Care 68 mg/dl (70-99)
[2024-01-01] MEDS: DEXTROSE 50% SYRINGE 12.5 GRAMS IV (17:51)
[2024-01-01 18:11] LABS: Glucose - Point of Care 137 mg/dl (70-99)
[2024-01-01] MEDS: LIPITOR 20 MG TUBE (20:43)
[2024-01-01 23:03] LABS: Glucose - Point of Care 76 mg/dl (70-99)
[2024-01-02] VITALS (11 sets, daily range): BP systolic 12–192; BP diastolic 43–69
[2024-01-02] MEDS: APRESOLINE TUBE (00:08)
[2024-01-02] MEDS: NOVOLOG FLEXPEN-LOW RESISTANCE SC ×4 (00:12→17:55)
[2024-01-02] MEDS: LANTUS SC (00:14)
[2024-01-02] MEDS: APRESOLINE 10 MG IV (03:24)
[2024-01-02] MEDS: DEXTROSE 50% SYRINGE 12.5 GRAMS IV (05:30)
[2024-01-02 05:36] LABS: Glucose - Point of Care 48 mg/dl (70-99)
[2024-01-02 05:55] LABS: Glucose - Point of Care 105 mg/dl (70-99)
[2024-01-02] MEDS: FERROUS SULFATE ORAL LIQUID TUBE (07:45)
[2024-01-02] MEDS: COZAAR 100 MG TUBE (07:56)
[2024-01-02] MEDS: PROTONIX IV 40 MG IV ×2 (07:56→19:10)
[2024-01-02] MEDS: NSS (PRESERVATIVE FREE) 10 ML IV ×2 (07:56→19:10)
[2024-01-02] MEDS: APRESOLINE 50 MG TUBE ×3 (07:57→22:37)
[2024-01-02] MEDS: NORVASC 10 MG TUBE (07:57)
[2024-01-02] MEDS: VIMPAT 100 MG TUBE ×2 (08:01→19:10)
--- NOTE | 2024-01-02 08:02 | W.PN.HOSP.TC ---
Addendum entered and electronically signed by Adonis Hall MD 01/02/24 09:05:
I saw and evaluated the patient. I reviewed the resident�s note and agree with findings and plan as documented in the resident�s note.
Patient nonverbal.
No acute distress, awake and alert
continues to remain Regular rate and rhythm, normal S1-S2
continues to remain Clear to auscultation bilaterally
continues to remain Positive bowel sounds, soft, nontender, nondistended
CN2-12 intact
Acute blood loss anemia:
-Exacerbated by Eliquis which remains on hold
-Heme positive stool on admission but the patient was on enteral iron
-Hemoglobin stable s/p 2U pRBCs
-EDG unremarkable and without source of bleeding
-colonoscopy today
-NS @ 40cc/hr while NPO
DM2:
-holding Lantus with hypoglycemia (closely monitor BGs)
-cont SSI/accuchecks
Essential hypertension:
-Multidrug-resistant
-Continue Norvasc/clonidine/hydralazine/losartan
ESRD:
-cont HD
Original Note:
Today's Communication/Plan
-
Hemodialysis
Colonoscopy
Monitor blood sugars
Assessment / Plan
Assessment / Plan
Impression:
This is a 73-year-old female with history of end-stage renal disease on hemodialysis Tuesdays and Saturdays, history of anemia secondary to chronic disease, history of DVT on anticoagulation, history of paroxysmal atrial fibrillation,
hypertension, epileptic seizures, dysphagia status post PEG tube, CAD with prior NSTEMI, CVA who presents to the emergency department for dialysis unit for a low blood count.
Plan:
#GI Bleed, unknown source
- Suspect GI bleed in setting of anticoagulation and antiplatelet therapy.
-Rectum eval in ED shows black stool, heme positive
- admit to telemetry
- type and screen
-S/p transfuse 2 unit prbc
-Goal Hgb of 7. No evidence of volume overload currently. Two physician consent obtained as we are unable to get hold of family for consent.
-Hemoglobin 8.1 this a.m.
-Hemoglobin has been stable throughout admission after transfusion of blood
- ppi iv gtt for now
- npo for now
-Has been receiving nutrition through PEG tube
- holding eliquis and aspirin
-Contact with pt daughter and POA was made
-POA confirmed code status
-GI following
-POA was contacted and granted consent for EGD and colonoscopy
-EGD yesterday, no bleeding
-Tentatively planning colonoscopy today
#ESRD
-HD today via left IJ PermCath.
-Dialysis sessions this admission, 12/29/23, 01/01/2024
-Next dialysis today 01/02/2024 to get her back on track for her Sunday dialysis
-Cr on admission was 2.2
-Renal labs improved after dialysis
- npo,
-Receive LAURA during dialysis
- renal dose all medications
- today, no volume overload, hyperkalemia or acidosis requiring urgent HD
- continue calcitriol
#hyponatremia
-Na 128 on admission
-Na 133 yesterday
-Labs pending today
- c/w ESRD, correct on HD.
-Fluid restriction with NPO for now
#hypokalemia
-Chronic, patient dialysis dependent
-Was 3.6 yesterday, labs pending today, will be corrected on HD
-Nephrology recommends gentle repletion as patient will be getting potassium bath during dialysis tomorrow
-Status post 20 mEq potassium through tube, will continue to monitor and replete as needed
#HTN
- continue amlodipine, hydralazine, clonidine and losartan with hold parameters
-Add PRN hydralazine with holding parameters
-Losartan increased to 100 mg tube
#Seizure d/o
- continue lacosamide and Keppra via PEG
-EEG pending to evaluate for intermittent seizures
#DM II
-Patient was having episodes of hypoglycemia
-Will adjust insulin as needed
- insulin sliding scale q 6 hours.
-Lantus 5 units subcu
#dementia
-Pt speaking today but still not oriented
-Aspiration precautions started
-head of bed raised to 30 degrees
-suction of secretions
DVT PPX - SCDs
Diet:NPO
Code:full code
Full code according to transfer data
Anticipated Discharge: Within 24 hours
Subjective/Interval History
-
Date of Service: January 02, 2024
Sugars were running low this morning
Colonoscopy planned for today
Hemodialysis planned for today
Objective Data
-
Labs:
Laboratory Results
01/02/24
07:41
WBC Pending
Hgb Pending
Hct Pending
Plt Count Pending
Sodium Pending
Potassium Pending
Chloride Pending
Carbon Dioxide Pending
BUN Pending
Creatinine Pending
Glucose Pending
Calcium Pending
Vital Signs:
Vital Signs
Temp Pulse Resp BP Pulse Ox
97.8 F 72 20 189/63 98
01/02/24 07:58 01/02/24 07:58 01/02/24 07:58 01/02/24 07:58 01/02/24 07:58
I&O
01/01/24 01/02/24 01/03/24
06:59 06:59 06:59
Intake Total 1200 / 1200 1030 / 1030
Output Total 3 / 3
Balance 1200 / 1200 1027 / 1027
Review of Systems
-
Unable to obtain full review of systems at this time due to: Dementia and Patient Non-verbal
Physical Exam
-
General: Well Developed, Well Nourished, No Apparent Distress and Comfortable
Respiratory: Other (could not ascultate due to poor respiratory effort)
Cardiac: Regular Rhythm, S1/S2 and Murmur
GI: Soft, Nontender, Nondistended and Normal Bowel Sounds
Musculoskeletal: No Edema
Skin: Warm and Dry
Neuro: Awake; Negative Alert, Oriented or AO x 3
Psych: Calm; Negative Intact Judgement/Insight
Data Reviewed
-
Labs: Labs Reviewed by me and Discussed with Physician
[2024-01-02 08:14] LABS: % Basophils 0.6 % (0-2); % Immature Granulocytes 0.5 % (0-0.5); % Lymphocytes 23.3 % (20.5-51.1); % Monocytes 7.8 % (1.7-9.3); % Neutrophils 58.8 % (42.2-75.2); Absolute Basophils 0.1 10^3/uL (0-0.2); Absolute Eosinophils 0.7 10^3/uL (0-0.7); Absolute Lymphocytes 1.9 10^3/uL (1.2-3.4); Absolute Monocytes 0.6 10^3/uL (0.1-0.6); Absolute Neutrophils 4.8 10^3/uL (1.4-6.5); Hematocrit 23.1 % (37.0-47.0); Hemoglobin 8.1 g/dL (12.0-16.0); Mean Corp Hgb Conc. 35.1 g/dL (33.0-37.0); Mean Corpuscular Hgb 30.9 pg (27.0-31.0); Mean Corpuscular Volume 88.2 fL (81.0-99.0); Mean Platelet Volume 9.6 fL (7.4-10.4); Nucleated Red Blood Cells % 0 %; Platelet Count 260 10^3/uL (130-400); Red Blood Cell Count 2.62 10^6/uL (4.20-5.40); Red Cell Dist. Width 14.9 % (11.5-14.5); White Blood Cell Count 8.1 10^3/uL (4.8-10.8)
[2024-01-02 08:49] LABS: Blood Urea Nitrogen 15 mg/dl (7-17); Calcium 8.6 mg/dl (8.4-10.2); Carbon Dioxide 26 mmol/L (22-30); Chloride 102 mmol/L (98-107); Glucose 65 mg/dl (70-99); Sodium 133 mmol/L (135-145); eGFR 22.95
--- NOTE | 2024-01-02 11:21 | W.PN.UPDATE ---
Update Note
Progress Note Update
Consent for EGD/ colonoscopy taken from patient's daughter by 12/29. Attempted to call daughter today but no answer.
--- NOTE | 2024-01-02 11:39 | W.PN.NEPH.PH ---
Today's Communication / Plan
-
- HD tomorrow
Assessment/Plan
-
Assessment:
ESRD on HD TTHS
Anemia c/f GIB
HypoK
HTN
Plan:
Pt is from [facility] seem to be MWF schedule
HD next on , then if d/c can be transitioned back to MWF schedule
monitor h/h
for colonoscopy today
- we will dialyze on 4K bath, okay for K repletion today
on gentle IVF while NPO
-
-
Date of Service: January 02, 2024
CC / HPI / ROS
-
Chief Complaint:
ESRD
History of Present Illness:
hb stable, BP stable
k i slow at 3.0, sodium low 133
Review of Systems:
resting comfortably
non verbal
Labs
-
Labs:
WBC 8.1 10^3/uL (4.8-10.8) 01/02/24 07:41
RBC 2.62 10^6/uL (4.20-5.40) L 01/02/24 07:41
Hgb 8.1 g/dL (12.0-16.0) L 01/02/24 07:41
Hct 23.1 % (37.0-47.0) L 01/02/24 07:41
Plt Count 260 10^3/uL (130-400) 01/02/24 07:41
Sodium 133 mmol/L (135-145) L 01/02/24 07:41
Potassium 3.0 mmol/L (3.5-5.1) L 01/02/24 07:41
Chloride 102 mmol/L (98-107) 01/02/24 07:41
Carbon Dioxide 26 mmol/L (22-30) 01/02/24 07:41
BUN 15 mg/dl (7-17) 01/02/24 07:41
Creatinine 2.2 mg/dL (0.6-1.0) H 01/02/24 07:41
eGFR 22.95 01/02/24 07:41
Glucose 65 mg/dl (70-99) L 01/02/24 07:41
Calcium 8.6 mg/dl (8.4-10.2) 01/02/24 07:41
Albumin 2.9 g/dl (3.5-5.0) L 12/27/23 16:10
Physical Exam
-
Vital Signs:
Vital Signs
Temp Pulse Resp BP Pulse Ox
97.8 F 72 20 189/63 98
01/02/24 07:58 01/02/24 07:58 01/02/24 07:58 01/02/24 07:58 01/02/24 07:58
Cardiovascular:: Regular rate and rhythm
Respiratory:: Bilateral: Coarse
Lung Excursion:: Normal
Abdomen:: Nontender and Soft
Bowel Sounds:: Normal
Extremity Edema:: +1: Bilateral:
Castañeda Catheter: No
[2024-01-02 12:39] LABS: Glucose - Point of Care 89 mg/dl (70-99)
[2024-01-02] MEDS: NSS 1000 IV (13:22)
--- NOTE | 2024-01-02 15:27 | CM ---
Patient s/p Colonoscopy.
Plan: back to [facility] when stable.
Patient will require ambulance transport.
No auth required
[facility]
Report# [phone]
[2024-01-02 17:47] LABS: Glucose - Point of Care 88 mg/dl (70-99)
[2024-01-02] MEDS: LIPITOR 20 MG TUBE (19:10)
[2024-01-02 23:53] LABS: Glucose - Point of Care 160 mg/dl (70-99)
[2024-01-03] MEDS: NOVOLOG FLEXPEN-LOW RESISTANCE 1 UNITS SC ×3 (00:24→12:27)
[2024-01-03 00:29] VITALS: BP 154/45
[2024-01-03 03:00] VITALS: BP 158/49
[2024-01-03 05:56] LABS: Glucose - Point of Care 164 mg/dl (70-99)
--- NOTE | 2024-01-03 07:08 | W.PN.HOSP.TC ---
Addendum entered and electronically signed by Adonis Hall MD 01/03/24 11:38:
Total time spent on d/c = 40 min. This included today's physical exam, progress note, review of laboratory and diagnostic data, preparation of discharge documents and prescriptions, and discussions about the pt's hospital course and discharge plan
with the patient and other medical office rep involved in the patient's care.
Addendum entered and electronically signed by Adonis Hall MD 01/03/24 11:16:
I saw and evaluated the patient. I reviewed the resident�s note and agree with findings and plan as documented in the resident�s note.
Patient currently nonverbal (but did state to the resident that she was hungry).
No acute distress, awake and alert
Regular rate and rhythm, normal S1-S2
Clear to auscultation bilaterally
Positive bowel sounds, soft, nontender, nondistended
CN2-12 intact
Acute blood loss anemia:
-Exacerbated by Eliquis which remains on hold
-Heme positive stool on admission but the patient was on enteral iron
-Hemoglobin stable s/p 2U pRBCs
-EDG unremarkable and without source of bleeding
-colonoscopy with 3 x polypectomy, no source of bleeding
-resume TFs
-can resume Eliquis 01/05/24PM
-recommend outpt capsule study
DM2:
-holding Lantus with hypoglycemia 01/02/24
-cont SSI/accuchecks
Essential hypertension:
-Multidrug-resistant
-Continue Norvasc/clonidine/hydralazine/losartan
ESRD:
-cont HD
Medically cleared for discharge. Case management aware.
Original Note:
Today's Communication/Plan
-
Discharge
Assessment / Plan
Assessment / Plan
Impression:
This is a 73-year-old female with history of end-stage renal disease on hemodialysis Tuesdays and Saturdays, history of anemia secondary to chronic disease, history of DVT on anticoagulation, history of paroxysmal atrial fibrillation,
hypertension, epileptic seizures, dysphagia status post PEG tube, CAD with prior NSTEMI, CVA who presents to the emergency department for dialysis unit for a low blood count.
Plan:
#GI Bleed, unknown source
- Suspect GI bleed in setting of anticoagulation and antiplatelet therapy.
-Rectum eval in ED shows black stool, heme positive
- admit to telemetry
- type and screen
-S/p transfuse 2 unit prbc
-Goal Hgb of 7. No evidence of volume overload currently. Two physician consent obtained as we are unable to get hold of family for consent.
-Hemoglobin 7.8 this a.m.
-Hemoglobin has been stable throughout admission after transfusion of blood
- ppi iv gtt
- npo for now
-Has been receiving nutrition through PEG tube
- holding eliquis and aspirin
-Contact with pt daughter and POA was made
-POA confirmed code status
-GI following
-POA was contacted and granted consent for EGD and colonoscopy
-EGD yesterday, no bleeding
-Colonoscopy yesterday, see data section for colonoscopy results
#ESRD
-HD today via left IJ PermCath.
-Dialysis sessions this admission, 12/29/23, 01/01/2024, 01/03/2024
-Next dialysis today 01/03/2024
-Plan to transition her back to Sunday dialysis session on discharge
-Cr on admission was 2.2
-Renal labs improve after dialysis
- npo,
-Receive LAURA during dialysis
- renal dose all medications
- today, no volume overload, hyperkalemia or acidosis requiring urgent HD
- continue calcitriol
#hyponatremia
-Stable
-Na 128 on admission
-Na 131 yesterday
-c/w ESRD, correct on HD.
-Fluid restriction with NPO for now
#hypokalemia
-Chronic
-Patient dialysis dependent
-Potassium being corrected on hemodialysis
-Nephrology recommends gentle repletion as patient will be getting potassium bath during dialysis
-will continue to monitor and replete as needed
#HTN
- continue amlodipine, hydralazine, clonidine and losartan with hold parameters
-Add PRN hydralazine with holding parameters
-Losartan increased to 100 mg tube
#Seizure d/o
- continue lacosamide and Keppra via PEG
#DM II
-Patient was having episodes of hypoglycemia
-Will adjust insulin as needed
- insulin sliding scale q 6 hours.
-Holding Lantus 5 units subcu due to hypoglycemia
#dementia
-Pt speaking today but still not oriented
-Aspiration precautions started
-head of bed raised to 30 degrees
-suction of secretions
DVT PPX - SCDs
Diet:NPO
Code:full code
Full code according to transfer data
Data:
Colonoscopy 01/02/2024
Impression: - Preparation of the colon was inadequate.
- The examined portion of the ileum was normal.
- One 18 mm polyp in the proximal ascending colon,
removed with a hot snare and removed piecemeal using a
cold snare. Resected and retrieved. Clip was placed.
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
- One 3 mm polyp in the ascending colon, removed with
a hot snare. Resected and retrieved.
- One 10 mm polyp in the sigmoid colon, removed with a
hot snare. Complete resection. Polyp tissue not
retrieved. Clip was placed. 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.
- Stool in the entire examined colon. No bleeding
- Internal hemorrhoids.
Anticipated Discharge: Today
Subjective/Interval History
-
Date of Service: January 03, 2024
No acute events overnight
Objective Data
-
Labs:
Laboratory Results
01/03/24
06:00
WBC Pending
Hgb Pending
Hct Pending
Plt Count Pending
Sodium Pending
Potassium Pending
Chloride Pending
Carbon Dioxide Pending
BUN Pending
Creatinine Pending
Glucose Pending
Calcium Pending
Vital Signs:
Vital Signs
Temp Pulse Resp BP Pulse Ox
98.3 F 70 19 158/49 100
01/03/24 03:00 01/03/24 03:00 01/03/24 03:00 01/03/24 03:00 01/03/24 03:00
I&O
01/02/24 01/03/24 01/04/24
06:59 06:59 06:59
Intake Total 1030 / 1030 480 / 480
Output Total 3 / 3 0 / 0
Balance 1027 / 1027 480 / 480
Review of Systems
-
Unable to obtain full review of systems at this time due to: Patient Non-verbal
Physical Exam
-
General: Well Developed, Well Nourished, No Apparent Distress and Comfortable
Respiratory: Other (Could not auscultate due to poor respiratory effort)
Cardiac: Regular Rhythm, S1/S2 and Murmur
GI: Soft, Nondistended and Normal Bowel Sounds
Skin: Warm and Dry
Neuro: Awake; Negative Alert, Oriented or AO x 3
Psych: Calm; Negative Intact Judgement/Insight
Data Reviewed
-
Medical Tests (Nuc Med, Echo etc): Report Reviewed by me and Discussed with Physician
Labs: Labs Reviewed by me and Discussed with Physician
[2024-01-03 07:45] VITALS: BP 184/56
[2024-01-03 08:14] LABS: % Basophils 0.5 % (0-2); % Eosinophils 15.3 % (0-6); % Immature Granulocytes 0.6 % (0-0.5); % Monocytes 7.9 % (1.7-9.3); % Neutrophils 55.7 % (42.2-75.2); Absolute Eosinophils 1.2 10^3/uL (0-0.7); Absolute Immature Granulocytes 0.1 10^3/uL (0-0.05); Absolute Lymphocytes 1.6 10^3/uL (1.2-3.4); Absolute Monocytes 0.6 10^3/uL (0.1-0.6); Absolute Neutrophils 4.4 10^3/uL (1.4-6.5); Hematocrit 22.5 % (37.0-47.0); Hemoglobin 7.8 g/dL (12.0-16.0); Mean Corp Hgb Conc. 34.7 g/dL (33.0-37.0); Mean Corpuscular Hgb 30.7 pg (27.0-31.0); Mean Corpuscular Volume 88.6 fL (81.0-99.0); Mean Platelet Volume 9.1 fL (7.4-10.4); Nucleated Red Blood Cells % 0 %; Platelet Count 243 10^3/uL (130-400); Red Blood Cell Count 2.54 10^6/uL (4.20-5.40); Red Cell Dist. Width 15.1 % (11.5-14.5); White Blood Cell Count 7.9 10^3/uL (4.8-10.8)
[2024-01-03] MEDS: PROTONIX IV 40 MG IV (08:29)
[2024-01-03] MEDS: NSS (PRESERVATIVE FREE) 10 ML IV (08:29)
[2024-01-03 09:22] LABS: Blood Urea Nitrogen 19 mg/dl (7-17); Calcium 8.8 mg/dl (8.4-10.2); Carbon Dioxide 23 mmol/L (22-30); Chloride 101 mmol/L (98-107); Glucose 170 mg/dl (70-99); Potassium 2.8 mmol/L (3.5-5.1); Sodium 131 mmol/L (135-145); eGFR 16.48
[2024-01-03] MEDS: CATAPRES-TTS-1 0.1 MG TRANSDERM (10:49)
--- NOTE | 2024-01-03 10:55 | W.DCSUMMARY ---
Addendum entered and electronically signed by Adonis Hall MD 01/04/24 10:10:
Read, reviewed, and agree. See same day progress note for additional details. s
Original Note:
Discharge Summary
Discharge Data
Date of Admission: 12/27/23
Date of Discharge: 01/03/24
-
Pending Results: Yes
Additional Pending Results:
Pathology results from colonoscopy
Call GI office for results in 2 weeks [phone]
Hospital Course
Discharging Physician : Isabel Nicole
Disposition : half-way facility
Primary care physician : Dr. Jagdish Gloria
Principal Discharge diagnosis : Acute on chronic anemia, requiring transfusion
Chronic Discharge diagnosis : Suspected GI bleed, end-stage renal disease�dialysis dependent, anemia of chronic disease, hyponatremia, hypokalemia, hypertension, seizure disorder, diabetes type 2 insulin-dependent, dementia
Hospital Course : 56-otum-cns-year-old female with a history of end-stage renal disease, hemodialysis dependent presented to the emergency department with acute on chronic anemia, hemoglobin was 5.9 at dialysis and she was referred to the emergency
department. In the ED recommend valuation demonstrated black, heme positive stools. Patient takes oral iron regularly. Patient received 2 units of packed red blood cells in the emergency department. Patient was admitted for further management
and workup of suspected GI bleed. Patient's hemoglobin remained stable throughout her stay. Hovering around 8. Patient is nonverbal at baseline, advanced dementia, no intact judgment and cannot make decisions for herself. Multiple attempts were
made to contact her and her daughter during the first couple days of her stay. These attempts were unsuccessful until the weekend when contact with her daughter was established. Gastroenterology was then able to obtain consent for EGD,
results were no upper GI bleeding. GI was also able to obtain consent for colonoscopy. Patient's EGD returned with no active bleeding source found, patient was then prepped for a colonoscopy. During her colonoscopy 3 polyps were removed and there
was no active bleeding found. Patient and/or family will call [facility] office in 2 weeks for her pending pathology results. Patient has been getting nutrition through her PEG tube, 40 mL/h Nepro with carb steady, as well as with 25 mL free
water flushes. Neurology has been following the patient. Patient received 3 sessions of hemodialysis during her stay 12/29/2023, 01/01/2024, 01/03/2024. She will resume her normal Sunday dialysis regimen on discharge. Patient will
be discharged to [facility]. Patient will follow-up with gastroenterology in 2 to 4 weeks regarding getting a small capsule study as well as to review her colonoscopy pathology reports. Patient will also follow-up at [facility] for a
speech and swallow eval regarding restarting oral food and drink. Patient to restart Eliquis 2 days after discharge on 01/05/2024, 5 mg twice daily through tube. On discharge we decreased patient's hydralazine and losartan dose, stopped her H2
lydia and started the patient on a PPI. We also stopped her Lantus as patient was having episodes of hypoglycemia.
Important imaging findings :
01/01/2024 peripheral vascular ultrasound, impression:
Duplex venous ultrasound of the left upper extremity is performed with qureshi scale, color Doppler, and spectral Doppler imaging.
Limited visualization of the left subclavian vein because of overlying bandage. Limited visualization of the brachial and basilic veins within the left upper arm because of overlying bandage.
The left internal jugular vein is patent. The left axillary vein is patent. The left brachial veins are patent.
The visualized left basilic vein is patent, and contains a catheter which is likely a PICC catheter. The visualized cephalic vein is patent. Within the forearm, the left radial and ulnar veins are patent.
Procedure findings :
EGD and 12/31/2023, impressions:
- Normal esophagus.
- The PEG was found in the stomach.
- Normal examined duodenum.
- No specimens collected.
01/02/2024 colonoscopy, impressions:
- Preparation of the colon was inadequate.
- The examined portion of the ileum was normal.
- One 18 mm polyp in the proximal ascending colon,
removed with a hot snare and removed piecemeal using a
cold snare. Resected and retrieved. Clip was placed.
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
- One 3 mm polyp in the ascending colon, removed with
a hot snare. Resected and retrieved.
- One 10 mm polyp in the sigmoid colon, removed with a
hot snare. Complete resection. Polyp tissue not
retrieved. Clip was placed. Clip field artillery crewmember: [employer].
- Stool in the entire examined colon. No bleeding
- Internal hemorrhoids.
Discharge Plan
-
Patient Disposition: Fdc/SNF
Discharge Diagnosis/Procedures: Acute on chronic anemia- requiring transfusion, Suspected gastrointestinal bleed, end-stage renal disease�dialysis dependent, anemia of chronic disease, hyponatremia, hypokalemia, hypertension, seizure disorder,
diabetes type 2 insulin-dependent
Condition: Fair
Diet: Tube feeding
Additional Diets: Tube feed Nepro with carb steady, goal rate 40 mL/h with 25 mL/h free water flushes
Activity: With assistance and As tolerated
Driving Restrictions: No driving
Bathing Restrictions: None
Other Services: ST
Activity Restrictions/Additional Instructions:
Recommend small bowel capsule study in the future to evaluate for small intestine bleeds. Please follow-up with Dr. Mariee in 2 to 4 weeks regarding the capsule study and for and for your colonoscopy pathology reports.
Please get speech and swallow evaluation at [facility] regarding reinitiation of oral food and drink.
Instructions: Percutaneous Endoscopic Gastrostomy (DC), How to give a tube feeding, BLOOD PRESSURE
Referrals:
Earl Gloria I., DO [Family Provider] - in one week
Erin Mariee MD [Active] - in two to four weeks (Review colonoscopy pathology, and discuss potential small bowel capsule study)
Additional Discharge Medication Instructions: Restart Eliquis 5 mg twice daily through tube on 01/05/2024
Losartan was increased to 100 mg through tube
Hydralazine was increased to 50 mg Q8 through tube
Patient's famotidine was discontinued and replaced with lansoprazole 30 mg daily through tube
Patient's insulin glargine was discontinued due to continued episodes of hypoglycemia
Prescriptions:
New
hydralazine 50 mg Tablet
50 mg feeding tube Q8 Qty: 0 0RF
losartan 100 mg Tablet
100 mg feeding tube DAILY Qty: 0 0RF
lansoprazole 30 mg tablet,disintegrat, delay rel
30 mg feeding tube DAILY Qty: 1 0RF
Continued
acetaminophen [Tylenol] 325 mg Tablet
650 mg PO Q6HPRN PRN (Reason: mild pain)
atorvastatin [Lipitor] 20 mg Tablet
20 mg feeding tube HS
clonidine 0.1 mg/24 hr Patch Weekly
1 patch TRANSDERMAL QWEEK
polyethylene glycol 3350 [Miralax] 17 gram Powder In Packet
17 g feeding tube DAILYPRN PRN (Reason: CONSTIPATION)
melatonin 3 mg Tablet
3 mg feeding tube HSPRN PRN (Reason: SLEEP)
amlodipine [Norvasc] 10 mg Tablet
10 mg feeding tube DAILY
bisacodyl [Dulcolax (bisacodyl)] 10 mg Suppository
10 mg OR DAILYPRN PRN (Reason: if no bm aftr mom)
ferrous sulfate 300 mg (60 mg iron)/5 mL Liquid
300 mg feeding tube DAILY
aspirin 81 mg Tablet,Chewable
81 mg feeding tube DAILY
insulin lispro 100 unit/mL Insulin Pen
0 sliding scale dose SC AC
Rx Instructions:
151-200=1 UNITS, 201-250=2UNITS, 251-300=3UNITS
lacosamide [Vimpat] 10 mg/mL Solution
100 mg feeding tube BID
Eliquis 5 mg Tablet
5 mg feeding tube BID Qty: 1 0RF
Rx Instructions:
Resume 7/24PM
Discontinued
losartan 50 mg Tablet
50 mg feeding tube DAILY
insulin glargine 100 unit/mL Solution
5 unit SC HS
hydralazine 25 mg Tablet
25 mg feeding tube TID
famotidine [Pepcid] 40 mg/5 mL (8 mg/mL) Suspension For Reconstitution
1.3 ml feeding tube DAILY
Discharge Orders:
Discharge Patient (As Directed); Ordered 01/03/24
Ordered By: Adonis Hall
Discharge Date and Time
Print Language: EMIRATI
[2024-01-03 10:59] VITALS: BP 165/75
--- NOTE | 2024-01-03 11:43 | CM ---
Patient returning to [facility] today by ambulance.
Daughter Marcela aware & IMM explained over phone and acknowledge understanding.
Plan: Disharge today back to [facility]. Josefina notified today.
[facility]
Report# [phone]
[2024-01-03 12:23] LABS: Glucose - Point of Care 164 mg/dl (70-99)
[2024-01-03] MEDS: FERROUS SULFATE ORAL LIQUID 300 MG TUBE (12:27)
[2024-01-03] MEDS: VIMPAT 100 MG TUBE (12:27)
[2024-01-03] MEDS: NORVASC 10 MG TUBE (12:27)
[2024-01-03] MEDS: NSS 1000 IV (12:27)
[2024-01-03] MEDS: APRESOLINE 50 MG TUBE (12:27)
[2024-01-03] MEDS: COZAAR 100 MG TUBE (12:27)
--- NOTE | 2024-01-03 14:10 | W.PN.NEPH.HD ---
Assessment
-
- tolerating UF well
- planning for d/c soon
Progress Note - Hemodialysis
-
Date of Service: January 03, 2024
Duration: 30 minutes and 3 hours
Potassium Bath: 3
Calcium Bath: 2.5
Opti-Dialyzer: 160
Ultrafiltration: Other
Blood Flow: 400
Dialysate Flow: 600
--- NOTE | 2024-01-04 07:56 | EEG.RPT ---
Electroencephalogram Report
Recording
Date of EE12/31/23
Type of EEG: Routine
Length of EEG recordin minutes
Done with Video Recording: Yes
Patient Status: Inpatient
Recording Conditions: Awake and Drowsy
Hyperventilation Performed: No
Photic Stimulation Performed: Yes
Report
LESS THAN 1 HOUR EEG REPORT
LESS THAN 1 HOUR EEG INTERPRETATION:
Moderately abnormal EEG for age due to diffuse bihemispheric slowing
CLINICAL CORRELATION:
This study was suggestive of diffuse cortical dysfunction without focal abnormality. No seizures were recorded.
Clinical correlation is advised.
METHODS:
A 21 channel digitized electroencephalogram (EEG) was performed at the bedside. The 10/20 international system of electrode placement was used with ECG and lateral/vertical eye movements recorded. Persyst QEEG monitoring was performed.
QUALITY OF STUDY:
Fair due to muscle artifact
ELECTROENCEPHALOGRAPHER IMPRESSION(S):
Background
There was a low to medium amplitude fairly well organized at times anterior-posterior voltage gradient of theta frequency
There were no significant asymmetries of background activity noted.
Sleep
Drowsiness present
Photic Stimulation
Failed to activate the record.
ECG
Normal sinus rhythm
== END 2024-01-03 15:16 | DRG 811 ==
LOC: 4 WEST ACU 18:53
PROVIDERS: Internal Medicine Gastroenterology; ADMITTING PHYSICIAN Internal Medicine; ATTENDING PHYSICIAN Internal Medicine; CONSULT PHYSICIAN Specialist; EMERGENCY PHYSICIAN Emergency Medicine; FAMILY PHYSICIAN Internal Medicine; OTHER PHYSICIAN Student in an Organized Health Care Education/Training Program
PROC: 30233N1 Transfusion of Nonautologous Red Blood Cells into Peripheral Vein, Percutaneous Approach (ICD-10-PCS; 2023-12-27)
PROC: 5A1D70Z Performance of Urinary Filtration, Intermittent, Less than 6 Hours Per Day (ICD-10-PCS; 2023-12-29)
PROC: 0DJ08ZZ Inspection of Upper Intestinal Tract, Via Natural or Artificial Opening Endoscopic (ICD-10-PCS; 2023-12-31)
PROC: 0DBK8ZZ Excision of Ascending Colon, Via Natural or Artificial Opening Endoscopic (ICD-10-PCS; 2024-01-02)
PROC: 0DBN8ZZ Excision of Sigmoid Colon, Via Natural or Artificial Opening Endoscopic (ICD-10-PCS; 2024-01-02)
DX: D62 Acute posthemorrhagic anemia (principal); N18.6 End stage renal disease; D68.32 Hemorrhagic disorder due to extrinsic circulating anticoagulants; I12.0 Hypertensive chronic kidney disease with stage 5 chronic kidney disease or end stage renal disease; I69.354 Hemiplegia and hemiparesis following cerebral infarction affecting left non-dominant side; E87.1 Hypo-osmolality and hyponatremia; K92.1 Melena; E11.22 Type 2 diabetes mellitus with diabetic chronic kidney disease; D63.1 Anemia in chronic kidney disease; I48.0 Paroxysmal atrial fibrillation; K63.5 Polyp of colon; K64.8 Other hemorrhoids; E78.5 Hyperlipidemia, unspecified; I25.10 Atherosclerotic heart disease of native coronary artery without angina pectoris; G40.909 Epilepsy, unspecified, not intractable, without status epilepticus; E87.6 Hypokalemia; F03.90 Unspecified dementia, unspecified severity, without behavioral disturbance, psychotic disturbance, mood disturbance, and anxiety; R13.10 Dysphagia, unspecified; I69.320 Aphasia following cerebral infarction; I25.2 Old myocardial infarction; Z86.718 Personal history of other venous thrombosis and embolism; Z99.2 Dependence on renal dialysis; Z79.01 Long term (current) use of anticoagulants; Z79.82 Long term (current) use of aspirin; Z79.4 Long term (current) use of insulin; Z93.1 Gastrostomy status
CPT/HCPCS: 88305; 80048; 80053; 82962; 83540; 83550; 85014; 85018; 85025; 85610; 86706; 86850; 86900; 86901; 86920; 87070; 87340; 93005; 93971; 95816; 96374; 99291; G0257; P9016; P9047; Q5106

== ENCOUNTER 2024-01-18 21:19 | Inpatient (IN) | payer MEDICARE, BC, SELFPAY ==
[2024-01-18] VITALS (16 sets, daily range): BP systolic 144–209; BP diastolic 42–84; BMI 29.0
--- NOTE | 2024-01-18 16:55 | ED.GENMED ---
History of Present Illness
<Tracy Cole MD, Resident - Last Filed: 01/18/24 21:10>
General
Chief Complaint: Abnormal Lab Value
Time Seen by Provider: 01/18/24 16:30
History of Present Illness
History of Present Illness:
The patient is a 73 year old female who was brought to ER by ambulance from [facility]. The ambulance crew reported that the patient was asymptomatic but her hemoglobin level was 6.5. They sent the patient to the hospital due the concerns of
hemoglobin level and her dialyses schedule on the weekend. The patient has severe dementia and is not able to reply any questions/ She is awake, alert but is not oriented. The patient was not able to apply 2 words commands due her severe dementia.
Her neurological and physical examination was suboptimal due her cognitive impairment.
If applicable-neuro sx onset
Date of onset of symptoms: 01/18/24
Past History
<Tracy Cole MD, Resident - Last Filed: 01/18/24 21:10>
Past History
ED Past Medical History: Arrthythmia (Atrial fibrillation), NIDDM, Renal failure, Seizures and Other (Dementia, dysphagia, G-tube, anemia)
Review of Systems
<Tracy Cole MD, Resident - Last Filed: 01/18/24 21:10>
Review of Systems
Unable to obtain full review of systems at this time due to: dementia
Constitutional: Reports not done
Phy Exam
<Tracy Cole MD, Resident - Last Filed: 01/18/24 21:10>
General Physical Exam
General Presentation: no apparent distress and other (The patinet has severe dementia and is not able to reply any question or localize any pain. )
General age: appears older than age
General Skin: dry
General Habitus: elderly
Cardiovascular Exam
Cardiovascular Exam: regular rate/rhythm and no JVD
Pulmonary Exam
Pulmonary Exam: lungs clear, no respiratory distress, no crackles, no stridor and no wheezing
Neurological Exam
Neurological Exam: alert and other (severe dementia )
Musculoskeletal Exam
Musculoskeletal Exam: other
Course
<Tracy Cole MD, Resident - Last Filed: 01/18/24 21:10>
Orders/Labs/Results
Orders:
Orders
01/18/24 16:58
IV Insert/Care/Rem.- Treatment PRN
01/18/24 17:11
HydrALAZINE [Apresoline] 10 mg IV NOW STA
01/18/24 18:44
Type+Screen Urgent
Basic Metabolic Panel Urgent
Complete Blood Count/With Diff Urgent
01/18/24 20:04
* Blood Bank Products Urgent
Blood Bank Products: *Packed RBC Leuko(PRBC's)
Quantity: 1
Transfuse Today: Yes
Reason: Anemia
IV Insert/Care/Rem.- Treatment PRN
01/18/24 20:33
CXR2 [CR Chest - 2 Views ] Routine
Comment:
Reason For Exam: Anemia
01/18/24 20:35
Hemodialysis treatment As Directed
Treatment date:: 01/19/24
Treatment type: Hemodialysis
Ultrafiltration (kg): 2kg
Treatment time (duration): 3 hours 30 minutes
Use dialysis access:: Tunneled Cath
Dialyzer:: Optiflux 160
Blood flow rate minimum: 350
Blood flow rate maximum: 400
Dialysis flow rate: 600 mL/min
Dialysate temperature: 35 degrees Celsius
Sodium (Na): 140
Potassium (K): 3
Calcium (Ca): 2.5
Bicarbonate (HCO3): 35
01/18/24 20:38
Obtain Records As Directed
Dates of Information to be Released: November-2023
Type of Information Requested: Entire Record
Obtain Records from: [facility]
Comment: hospital admission
01/19/24 07:00
Complete Blood Count/No Diff Urgent
Electrolytes Urgent
Comment: pre-Hemodialysis lab, to be drawn by HD nurse
01/19/24 08:00
Albumin Human 25% 50 ml [Flexbumin 25% For Hemodialysis] 12.5 grams IV HD-Q1HPRN PRN
Epoetin Sameer-Epbx [Retacrit] 10,000 units IV HD-ONCE ONE
Heparin See Dose Instructions INTRACATH HD-ONCE ONE
Mannitol 25% 12.5 grams IV HD-Q1HPRN PRN
Sodium Chloride [Sodium Chloride 4 Meq/ml For Hemodialysis] 10 ml IV HD-Q1HPRN PRN
Abnormal Lab Results
01/18/24
18:44
RBC 2.22 L 10^6/uL
(4.20-5.40)
Hgb 6.7 L* g/dL
(12.0-16.0)
Hct 20.2 L* %
(37.0-47.0)
RDW 15.1 H %
(11.5-14.5)
Abs Immat Gran (auto) 0.1 H 10^3/uL
(0-0.05)
Absolute Eos (auto) 0.8 H 10^3/uL
(0-0.7)
Immature Gran % 0.6 H %
(0-0.5)
Lymphocytes % 18.1 L %
(20.5-51.1)
Eosinophils % 8.8 H %
(0-6)
Sodium 131 L mmol/L
(135-145)
Chloride 96 L mmol/L
(98-107)
BUN 46 H mg/dl
(7-17)
Creatinine 3.2 H mg/dL
(0.6-1.0)
Glucose 137 H mg/dl
(70-99)
Crossmatch IS Only See Detail
01/18/24 18:44
01/18/24 18:44
Vital Signs
Initial and Last Documented VS:
Initial Vital Signs
Temp
98.6 F
01/18/24 16:34
Last Documented Vital Signs
Temp Pulse Resp BP Pulse Ox
98.3 F 71 18 173/48 98
01/18/24 20:58 01/18/24 20:58 01/18/24 20:58 01/18/24 20:58 01/18/24 18:15
<Austen Mckenna MD - Last Filed: 01/18/24 20:04>
Orders/Labs/Results
Orders:
Orders
01/18/24 16:58
IV Insert/Care/Rem.- Treatment PRN
01/18/24 17:11
HydrALAZINE [Apresoline] 10 mg IV NOW STA
01/18/24 18:44
Type+Screen Urgent
Basic Metabolic Panel Urgent
Complete Blood Count/With Diff Urgent
01/18/24 20:04
* Blood Bank Products Urgent
Blood Bank Products: *Packed RBC Leuko(PRBC's)
Quantity: 1
Transfuse Today: Yes
Reason: Anemia
IV Insert/Care/Rem.- Treatment PRN
01/18/24 20:33
CXR2 [CR Chest - 2 Views ] Routine
Comment:
Reason For Exam: Anemia
01/18/24 20:35
Hemodialysis treatment As Directed
Treatment date:: 01/19/24
Treatment type: Hemodialysis
Ultrafiltration (kg): 2kg
Treatment time (duration): 3 hours 30 minutes
Use dialysis access:: Tunneled Cath
Dialyzer:: Optiflux 160
Blood flow rate minimum: 350
Blood flow rate maximum: 400
Dialysis flow rate: 600 mL/min
Dialysate temperature: 35 degrees Celsius
Sodium (Na): 140
Potassium (K): 3
Calcium (Ca): 2.5
Bicarbonate (HCO3): 35
01/18/24 20:38
Obtain Records As Directed
Dates of Information to be Released: November-2023
Type of Information Requested: Entire Record
Obtain Records from: [facility]
Comment: hospital admission
01/19/24 07:00
Complete Blood Count/No Diff Urgent
Electrolytes Urgent
Comment: pre-Hemodialysis lab, to be drawn by HD nurse
01/19/24 08:00
Albumin Human 25% 50 ml [Flexbumin 25% For Hemodialysis] 12.5 grams IV HD-Q1HPRN PRN
Epoetin Sameer-Epbx [Retacrit] 10,000 units IV HD-ONCE ONE
Heparin See Dose Instructions INTRACATH HD-ONCE ONE
Mannitol 25% 12.5 grams IV HD-Q1HPRN PRN
Sodium Chloride [Sodium Chloride 4 Meq/ml For Hemodialysis] 10 ml IV HD-Q1HPRN PRN
Abnormal Lab Results
01/18/24
18:44
RBC 2.22 L 10^6/uL
(4.20-5.40)
Hgb 6.7 L* g/dL
(12.0-16.0)
Hct 20.2 L* %
(37.0-47.0)
RDW 15.1 H %
(11.5-14.5)
Abs Immat Gran (auto) 0.1 H 10^3/uL
(0-0.05)
Absolute Eos (auto) 0.8 H 10^3/uL
(0-0.7)
Immature Gran % 0.6 H %
(0-0.5)
Lymphocytes % 18.1 L %
(20.5-51.1)
Eosinophils % 8.8 H %
(0-6)
Sodium 131 L mmol/L
(135-145)
Chloride 96 L mmol/L
(98-107)
BUN 46 H mg/dl
(7-17)
Creatinine 3.2 H mg/dL
(0.6-1.0)
Glucose 137 H mg/dl
(70-99)
Crossmatch IS Only See Detail
01/18/24 18:44
01/18/24 18:44
Vital Signs
Initial and Last Documented VS:
Initial Vital Signs
Temp
98.6 F
01/18/24 16:34
Last Documented Vital Signs
Temp Pulse Resp BP Pulse Ox
98.3 F 71 18 173/48 98
01/18/24 20:58 01/18/24 20:58 01/18/24 20:58 01/18/24 20:58 01/18/24 18:15
<Tracy Cole MD, Resident - Last Filed: 01/18/24 21:10>
*Critical Care Note
Total Time (30-74mins, 75-104mins- exclusive of procedures): Not Applicable
<Tracy Cole MD, Resident - Last Filed: 01/18/24 21:10>
Comment
Comment:
Electrolyte imbalance, anemia, infection ?
ED Attending Note
<Tracy Cole MD, Resident - Last Filed: 01/18/24 21:10>
-
Portions of this chart may have been created with voice recognition software.� Occasional wrong word or��sound alike� substitutions may have occurred due to the inherent limitations of voice recognition software.
<Austen Mckenna MD - Last Filed: 01/18/24 20:04>
ED Attending Note
Patient seen and examined by attending physician: Yes
ED Attending Note:
Patient with history of dementia and end-stage renal disease on hemodialysis (Sunday, Sunday, Sunday), [facility] an outpatient blood work revealed anemia. Patient unfortunately did not receive her hemodialysis today.
Patient does not offer any additional information. Patient has had history of anemia, requiring blood transfusion, including recent admission to the hospital.
Physical Exam
General: no apparent distress, not acutely ill. afebrile
Head: nc/at. eomi
Neck: supple. normal range of motion.
Heart: s1/s2 regular rate and rhythm, no murmur. equal radial pulses.
Lungs: no acute respiratory distress. diminished breath sounds bilaterally
Abdomen: normal bowel sounds. not tender.
Neuro: alert and awake. spontaneously moving left UE and RLE
Skin: no rash
Extremities: no edema
H/H noted.
Discussed with spouse, Art Nettles, via phone. Verbal consent obtained for blood transfusion.
As patient requires dialysis, patient will be admitted for further evaluation and treatment.
Discharge Plan
Departure
Patient Disposition: Admit
Date of Disposition: 01/18/24
Time of Disposition: 20:03
Admit to: Med/Surg
Presentation/result/management discussed w/ accepting MD/DO: Hospitalist
Discharge Problem:
Anemia, ESRD (end stage renal disease) on dialysis
Prescriptions:
No Action
atorvastatin [Lipitor] 20 mg Tablet
20 mg feeding tube HS
clonidine 0.1 mg/24 hr Patch Weekly
1 patch TRANSDERMAL TH
polyethylene glycol 3350 [Miralax] 17 gram Powder In Packet
17 g feeding tube DAILYPRN PRN (Reason: CONSTIPATION)
melatonin 3 mg Tablet
3 mg feeding tube HSPRN PRN (Reason: SLEEP)
amlodipine [Norvasc] 10 mg Tablet
10 mg feeding tube DAILY
bisacodyl [Dulcolax (bisacodyl)] 10 mg Suppository
10 mg NE DAILYPRN PRN (Reason: if no bm aftr mom)
ferrous sulfate 300 mg (60 mg iron)/5 mL Liquid
300 mg feeding tube DAILY
aspirin 81 mg Tablet,Chewable
81 mg feeding tube DAILY
insulin lispro 100 unit/mL Insulin Pen
1 - 3 sliding scale dose SC AC
Rx Instructions:
151-200=1 UNITS, 201-250=2UNITS, 251-300=3UNITS
lacosamide [Vimpat] 10 mg/mL Solution
100 mg feeding tube BID
hydralazine 50 mg Tablet
50 mg feeding tube Q8 Qty: 0 0RF
losartan 100 mg Tablet
100 mg feeding tube DAILY Qty: 0 0RF
lansoprazole 30 mg tablet,disintegrat, delay rel
30 mg feeding tube DAILY Qty: 1 0RF
Eliquis 5 mg Tablet
5 mg feeding tube BID Qty: 1 0RF
Rx Instructions:
Resume 01/04/24PM
magnesium hydroxide [Milk of Magnesia] 400 mg/5 mL Suspension
30 ml FEEDING TUBE HSPRN PRN (Reason: if no bm in 3 days)
Referrals:
Earl Gloria I., DO [Family Provider] -
Interventions
Interventions:
*Risk Screen - Suicide Last Done: 01/18/24 16:34
*General Assessment Last Done: 01/18/24 16:34
*Neglect/Abuse Screening Last Done: 01/18/24 16:34
Discharge Date and Time
Print Language: [place] CITIZEN
[2024-01-18] MEDS: APRESOLINE 10 MG IV (18:55)
[2024-01-18 19:11] LABS: Blood Urea Nitrogen 46 mg/dl (7-17); Calcium 9.1 mg/dl (8.4-10.2); Carbon Dioxide 30 mmol/L (22-30); Chloride 96 mmol/L (98-107); Glucose 137 mg/dl (70-99); Potassium 3.5 mmol/L (3.5-5.1); Sodium 131 mmol/L (135-145); eGFR 14.64
[2024-01-18 19:16] LABS: % Basophils 0.7 % (0-2); % Eosinophils 8.8 % (0-6); % Immature Granulocytes 0.6 % (0-0.5); % Lymphocytes 18.1 % (20.5-51.1); % Monocytes 6.3 % (1.7-9.3); % Neutrophils 65.9 % (42.2-75.2); Absolute Basophils 0.1 10^3/uL (0-0.2); Absolute Eosinophils 0.8 10^3/uL (0-0.7); Absolute Immature Granulocytes 0.1 10^3/uL (0-0.05); Absolute Lymphocytes 1.8 10^3/uL (1.2-3.4); Absolute Monocytes 0.6 10^3/uL (0.1-0.6); Absolute Neutrophils 6.4 10^3/uL (1.4-6.5); Hematocrit 20.2 % (37.0-47.0); Hemoglobin 6.7 g/dL (12.0-16.0); Mean Corpuscular Hgb 29.7 pg (27.0-31.0); Mean Corpuscular Volume 87.4 fL (81.0-99.0); Mean Platelet Volume 9.3 fL (7.4-10.4); Nucleated Red Blood Cells % 0 %; Platelet Count 354 10^3/uL (130-400); Red Blood Cell Count 2.22 10^6/uL (4.20-5.40); Red Cell Dist. Width 15.1 % (11.5-14.5); White Blood Cell Count 9.7 10^3/uL (4.8-10.8)
--- NOTE | 2024-01-18 20:23 | HPS.HSE ---
Addendum entered and electronically signed by Peter Perez DO 01/18/24 22:44:
Patient seen and examined independently. Agree with findings and plan as set forth by BHUPINDER Tamayo.
Patient is a 73y F with PMH significant for CVA with chronic weakness / dysphagia, ESRD on HD, ASCVD and seizure disorder who presents to ED from [facility] for evaluation of abnormal labs. Patient appears alert and is able to answer some
Y/N questions - though history is questionable due to dementia. Patient currently denies any pain, dyspnea, etc.
Patient was admitted previously for anemia and had EGD / colonoscopy at that time which were unremarkable.
Plan at that time was for eventual OP capsule study. It is not clear if this was performed.
Patient apparently missed her most recent HD session at the [facility] - though it is not clear why this would be the case.
Ass:
Acute on Chronic Anemia of CKD
Iron Deficiency
ESRD on HD
ASCVD with Prior CVA, CAD, etc
Chronic Dysphagia / Aphasia - PEG Dependent
Paroxysmal Atrial Fibrillation
Benign Hypertension
Seizure Disorder
DM-II
Plan:
Admit for further evaluation and treatment.
No obvious evidence of bleeding / blood loss.
Transfusion ordered in the ED for anemia that is somewhat worse than baseline.
Nephrology consulted for HD needs given that patient missed recent session.
No gross volume overload or urgent HD needs at present.
Continue usual outpatient med regimen.
Consider pros / cons of continued Eliquis treatment given worsening / recurrent anemia.
Difficult decision in patient with mobility issues, prior CVA, etc.
Complete outpatient capsule study as previously recommended.
Other GI evaluation has been unremarkable.
Original Note:
Family Physician
-
Family Physician: Earl Gloria
Chief Complaint
-
Low hemoglobin and missed dialysis
History of Present Illness
73-year-old female from [facility] due to Hgb of 6.5 on outpatient labs today. They did not do her dialysis today and sent her to ER for evaluation of low hemoglobin. She has history of severe dementia and is oriented to her first and last name
only. She is unable to give review of systems. She has generalized edema to upper arms and legs is immobile due to history of CVA can move her left arm subtle bends approximately 20 degrees. She has a G-tube in place due to history of dysphagia.
When lying in bed she constantly grinds her teeth.
Past medical history ESRD on HD, dysphagia status post PEG tube,CVA chronic immobility moves left arm slightly, seizure disorder, dementia advanced, iron deficiency anemia, CAD prior NSTEMI, DM2 with history of hyperglycemia, multidrug resistant
hypertension, paroxysmal A-fib, DVT
Medical History
Past Medical History
Past Medical History: Reports Other
Additional Past Medical History:
ESRD on HD Sunday
Left upper IJ
Anemia of CKD
Iron deficiency anemia
dysphagia status post PEG tube
CVA chronic immobility moves left arm slightly
seizure disorder
dementia advanced
CAD prior NSTEMI
DM2 with history of hyperglycemia
multidrug resistant hypertension
paroxysmal A-fib on Eliquis
DVT right arm
History of chronic diastolic heart failure
Past Surgical History: Reports Other (Left IJ permacath)
Social History
Tobacco: Non-smoker
Alcohol: None
Living: Shelter ([facility])
Employment: Retired
Family History
Family History: Unable to Obtain
Allergies / Home Medications
Allergies reflects when Allergies were last updated in [facility].
Home Medications with original date entered in [facility]
Allergy/Medication List:
Allergies
Allergy/AdvReac Type Severity Reaction Status Date / Time
adhesive tape Allergy Unknown Verified 01/18/24 16:34
codeine Allergy Unknown Verified 01/18/24 16:34
oxycodone Allergy Unknown Verified 01/18/24 16:34
tramadol Allergy Unknown Verified 01/18/24 16:34
Home Medications
amlodipine 10 mg tablet (Norvasc) 10 mg feeding tube DAILY Blood Pressure 12/27/23
aspirin 81 mg chewable tablet 81 mg feeding tube DAILY Blood Clot Prevention/Tx 12/27/23
atorvastatin 20 mg tablet (Lipitor) 20 mg feeding tube HS High Cholesterol 12/27/23
bisacodyl 10 mg rectal suppository (Dulcolax (bisacodyl)) 10 mg DE DAILYPRN PRN if no bm aftr mom 12/27/23
clonidine 0.1 mg/24 hr weekly transdermal patch 1 patch transdermal TH Blood Pressure 12/27/23
ferrous sulfate 300 mg (60 mg iron)/5 mL oral liquid 300 mg feeding tube DAILY Supplement 12/27/23
insulin lispro 100 unit/mL subcutaneous pen 1 - 3 sliding scale dose SC AC Diabetes 12/27/23
lacosamide 10 mg/mL oral solution (Vimpat) 100 mg feeding tube BID Seizures 12/27/23
melatonin 3 mg tablet 3 mg feeding tube HSPRN PRN SLEEP 12/27/23
polyethylene glycol 3350 17 gram oral powder packet (Miralax) 17 g feeding tube DAILYPRN PRN CONSTIPATION 12/27/23
apixaban 5 mg tablet (Eliquis) 5 mg feeding tube BID Blood Clot Prevention/Tx #1 tab 01/03/24
hydralazine 50 mg tablet 50 mg feeding tube Q8 #0 tabs 01/03/24
lansoprazole 30 mg delayed release,disintegrating tablet 30 mg feeding tube DAILY #1 tab 01/03/24
losartan 100 mg tablet 100 mg feeding tube DAILY #0 tabs 01/03/24
magnesium hydroxide 400 mg/5 mL oral suspension (Milk of Magnesia) 30 ml feeding tube HSPRN PRN if no bm in 3 days 01/18/24
Review of Systems
-
History Source: Shelter
A 12 point ROS was completed and negative except as noted: Yes
Constitutional: Reports Other (Sent for low hemoglobin and missed dialysis); Denies Fever
Respiratory: Denies Cough or Trouble Breathing
Cardiac: Denies Syncope
Abdomen/GI: Denies Vomiting, Diarrhea, Constipated or Bloody Stools
: Denies Dysuria or Frequency
Musculoskeletal: Reports Edema (Edema bilateral arms and legs); Denies Joint Pain
Skin: Denies Itching or Rash
Neurological: Denies Headache
Hematologic/Lymphatic: Denies Bleeding
Psych: Reports Calm
Physical Exam
Vital Signs
Vital Signs
Temp Pulse Resp BP Pulse Ox
98.6 F 75 11 205/68 98
01/18/24 16:34 01/18/24 19:15 01/18/24 19:15 01/18/24 19:00 01/18/24 18:15
Physical Exam
General: Obese and Other (Is able to say first and last name only); No Chills
HEENT: NormoCephalic, Anicteric, PERRLA and [place] Conjunctivae
Respiratory: Clear; No Wheezes or Rales
Cardiac: S1/S2 and Regular Rhythm; No Murmur, Rub or Gallop
Breast: Deferred by me
GI: Soft, Non Tender, Non Distended, Normal Bowel Sounds and No Hepatosplenomegaly
Rectal: Deferred by Provider
Genito-urinary: Deferred by me
Musculoskeletal: No Clubbing, No Cyanosis and No Edema
Skin: Warm, Dry and IV/Catheter Site (Dialysis catheter left upper chest); No Rash or Decubitus Ulcers
Neuro: Awake, Alert and Oriented (To first and last name only cannot do review of systems move left arm approximate 10 degrees); No Slurred Speech, Facial Droop, Tremors or Sedated
Psych: Calm
Laboratory Results
-
01/18/24 18:44
01/18/24 18:44
Impression/Plan
-
Impression/plan:
Admit to telemetry
# Acute on chronic anemia of of CKD
#Hx iron deficiency anemia
Hgb 6.7 was 7.8 on 01/03/2024 post blood transfusion
-Type and screen, transfuse 2 units PRBC
-Eliquis was held during December admission and resumed on 01/05/2024
-Continue Eliquis no obvious signs of blood loss recent EGD [place] were negative for source of bleeding
-Follow cbc
-Continue Prevacid 30 mg disintegrating tablet via G-tube
EGD: Unremarkable without source of bleeding
Colonoscopy 12/27/2023: No source of bleeding multiple polypectomies proximal ascending colon, sigmoid colon removed with snare, internal hemorrhoids all benign neoplasm
#ESRD on HD [place]
Left IJ permacath
Missed dialysis today 01/18/2024
-Consult Nephrology
-Follow BMP
#Dysphagia status post PEG tube
-All meds via PEG tube
-Consult dietary for tube feeds
Patient uses Nepro 1.8 at 55 mL an hour up at 1400 down at 09 100
#Paroxysmal A-fib
-On Eliquis 5 mg twice daily
#HTN�benign multidrug-resistant
-Continue Norvasc 10 mg, clonidine transdermal patch, hydralazine 50 mg every 8h, losartan 100 mg was increased recent admission
-Will give clonidine 0.1 mg transdermal patch on was placed 01/17/2024
-IV hydralazine 10 mg given in ER
#Hx CVA with immobility, dysphagia
#Seizure disorder
hx EEG 01/04/24 no seizures,no mention of taking keppra
-Continue Vimpat 100 mg twice daily
#Dementia�severe
Keep head of bed raised to 30 degrees at all times
-May suction secretions
-Oriented to first and last name only
#CAD prior NSTEMI
Continue aspirin 81 mg daily, BP control,
#DM 2 with history of episodes of hypoglycemia in past
Accu-Cheks with SSI low
Lantus was discontinued on recent admission [place]
DVT prophylaxis
SCDs
Full code
--- NOTE | 2024-01-18 23:12 | PTCARENOTE ---
ax1- does not speak, does not move is contracted. grinding teeth- prbc's complete that were started in ed no s/s of transfusion reaction. pt with htn sinus 70's afebrile- labs to be drawn in am hd orders in
--- NOTE | 2024-01-18 23:15 | PTCARENOTE ---
UNMEASURABLE STAGE TWO WITH MULTIPLE OPEN AREAS ON SACRUM DRESSED WITH LARGE FOAM
[2024-01-18] MEDS: APRESOLINE 50 MG TUBE (23:32)
[2024-01-18] MEDS: MELATONIN 3 MG TUBE (23:32)
[2024-01-18] MEDS: LIPITOR 20 MG TUBE (23:32)
--- NOTE | 2024-01-18 23:33 | PTCARENOTE ---
PT NOW SMILING AND TOLD ME HER NAME BUT STILL AX1 AND ONE TO TWO WORD ANSWERS
[2024-01-19 00:13] VITALS: BMI 29.0
[2024-01-19 03:43] VITALS: BP 125/63
[2024-01-19 06:00] VITALS: BMI 29.0
[2024-01-19 06:19] VITALS: BMI 29.0
[2024-01-19 07:00] VITALS: BP 203/71
[2024-01-19 08:18] VITALS: BMI 29.0
[2024-01-19] MEDS: APRESOLINE 50 MG TUBE ×3 (08:38→23:55)
[2024-01-19] MEDS: ELIQUIS 5 MG TUBE ×2 (08:38→20:23)
[2024-01-19 08:55] LABS: ALT (SGPT) 12 U/L (0-35); AST (SGOT) 33 U/L (14-36); Alkaline Phosphatase 83 U/L (38-126); Blood Urea Nitrogen 49 mg/dl (7-17); Calcium 8.8 mg/dl (8.4-10.2); Carbon Dioxide 27 mmol/L (22-30); Chloride 97 mmol/L (98-107); Estimated Creatinine Clearance 13 ml/min; Glucose 153 mg/dl (70-99); Magnesium 2.4 mg/dl (1.6-2.3); Potassium 3.2 mmol/L (3.5-5.1); Sodium 130 mmol/L (135-145); Total Bilirubin 0.4 mg/dl (0.2-1.3); eGFR 13.15
[2024-01-19 09:00] LABS: % Basophils 1.1 % (0-2); % Eosinophils 9.9 % (0-6); % Immature Granulocytes 0.8 % (0-0.5); % Monocytes 6.1 % (1.7-9.3); % Neutrophils 65.1 % (42.2-75.2); Absolute Basophils 0.1 10^3/uL (0-0.2); Absolute Immature Granulocytes 0.1 10^3/uL (0-0.05); Absolute Lymphocytes 1.7 10^3/uL (1.2-3.4); Absolute Monocytes 0.6 10^3/uL (0.1-0.6); Absolute Neutrophils 6.5 10^3/uL (1.4-6.5); Hematocrit 22.8 % (37.0-47.0); Hemoglobin 7.9 g/dL (12.0-16.0); Mean Corp Hgb Conc. 34.6 g/dL (33.0-37.0); Mean Corpuscular Hgb 30.2 pg (27.0-31.0); Mean Platelet Volume 9.3 fL (7.4-10.4); Nucleated Red Blood Cells % 0 %; Platelet Count 335 10^3/uL (130-400); Red Blood Cell Count 2.62 10^6/uL (4.20-5.40); Red Cell Dist. Width 14.7 % (11.5-14.5); White Blood Cell Count 9.9 10^3/uL (4.8-10.8)
[2024-01-19] MEDS: RETACRIT 10000 UNITS IV (09:13)
[2024-01-19] MEDS: HEPARIN 4200 UNITS INTRACATH (11:30)
--- NOTE | 2024-01-19 11:55 | W.PN.HOSP.TC ---
Today's Communication/Plan
-
can likely DC tomorrow
will trend Hg
receiving HD today
Assessment / Plan
Assessment / Plan
#Acute on chronic anemia of of CKD
#Hx iron deficiency anemia
-Hg was 6.7 on admit, now 7.8 after 1 unit PRBC
-patient was admitted in December s/p EGD/[place] without source of bleeding found
-Eliquis was held during December admission and resumed on 01/05/2024
-Continue Prevacid 30 mg disintegrating tablet via G-tube
EGD: Unremarkable without source of bleeding
Colonoscopy 12/27/2023: No source of bleeding multiple polypectomies proximal ascending colon, sigmoid colon removed with snare, internal hemorrhoids all benign neoplasm
-Hg stable
#ESRD on HD MOWEFR
Left IJ permacath
Missed dialysis today 01/18/2024
-Consult Nephrology
-Follow BMP
#Dysphagia status post PEG tube
-All meds via PEG tube
-Consult dietary for tube feeds
-Patient uses Nepro 1.8 at 55 mL an hour up at 1400 down at 09 100
#Paroxysmal A-fib
-On Eliquis 5 mg twice daily
#HTN�benign multidrug-resistant
-Continue Norvasc 10 mg, clonidine transdermal patch, hydralazine 50 mg every 8h, losartan 100 mg was increased recent admission
#Hx CVA with immobility, dysphagia
#Seizure disorder
hx EEG 01/04/24 no seizures,no mention of taking keppra
-Continue Vimpat 100 mg twice daily
#Dementia�severe
Keep head of bed raised to 30 degrees at all times
-May suction secretions
-Oriented to first and last name only
#CAD prior NSTEMI
Continue aspirin 81 mg daily, BP control,
#DM 2 with history of episodes of hypoglycemia in past
Accu-Cheks with SSI low
Lantus was discontinued on recent admission December
DVT prophylaxis
SCDs
Full code
Anticipated Discharge: Within 24 hours
Subjective/Interval History
-
Date of Service: January 19, 2024
denies pain
Objective Data
-
Labs:
Laboratory Results
01/19/24
07:52
WBC 9.9
Hgb 7.9 L
Hct 22.8 L
Plt Count 335
Sodium 130 L
Potassium 3.2 L
Chloride 97 L
Carbon Dioxide 27
BUN 49 H
Creatinine 3.5 H
Glucose 153 H
Calcium 8.8
Total Bilirubin 0.4
AST 33
ALT 12
Alkaline Phosphatase 83
Vital Signs:
Vital Signs
Temp Pulse Resp BP Pulse Ox
98.1 F 75 18 199/84 99
01/19/24 07:00 01/19/24 08:38 01/19/24 07:00 01/19/24 08:38 01/19/24 07:00
I&O
01/18/24 01/19/24 01/20/24
06:59 06:59 06:59
Intake Total 575 / 575
Balance 575 / 575
Review of Systems
-
History Source: Patient
All other systems: Reviewed and negative
Physical Exam
-
General: Well Developed, Well Nourished, No Apparent Distress and Comfortable
Respiratory: Other (Could not auscultate due to poor respiratory effort)
Cardiac: Regular Rhythm, S1/S2 and Murmur
GI: Soft, Nondistended and Normal Bowel Sounds
Skin: Warm and Dry
Neuro: Awake; Negative Alert, Oriented or AO x 3
Psych: Calm and Apparent Dementia; Negative Intact Judgement/Insight
Data Reviewed
-
Diagnostic Radiology: Report Reviewed by me
Labs: Labs Reviewed by me
--- NOTE | 2024-01-19 11:57 | W.CON.NEPH ---
Consultation
-
Date/Time Consultation Requested: January 19, 2024 8 AM
Date/Time Consultation Performed: January 19, 2024 10 AM
Requesting Provider: Dr. Perez
Performing Provider: Dr. Matthew
Reason for Consultation: ESRD
Medical History
-
Chief Complaint: ESRD on HD
History of Present Illness:
This is a 73-year-old female with end-stage renal disease on hemodialysis at [facility] Sunday, anemia secondary to chronic disease, DVT on anticoagulation, paroxysmal atrial fibrillation, hypertension on a multidrug regimen,
seizures controlled with Vimpat, dysphagia with PEG tube, CAD with prior NSTEMI, CVA who presents to the emergency department from the dialysis unit for a acute anemia. She did not receive dialysis on Sunday. Hemoglobin was noted to be 6.5 at the
outpatient.
The patient is minimally interactive with baseline dementia.she reports no complaints at this point. Review of records from the dialysis unit suggests that she may have had lung cancer though is uncertain whether or not this was a error in
documentation.
Past Medical History
ESRD on HD [place]
CAD with NSTEMI
Anemia of chronic disease
DVT on AC
PAfib
HTN
seizures
CVA c/b aphasia
dysphagia with PEG tube in place
Past Medical History: Other
Social History
Tobacco: Non-Smoker
Alcohol: None
Drug: None
Living: [facility]
Family History
Family History: Not Pertinent
Allergies / Home Medications
Allergy/AdvReac Type Severity Reaction Status Date / Time
adhesive tape Allergy Unknown Verified 01/18/24 16:34
codeine Allergy Unknown Verified 01/18/24 16:34
oxycodone Allergy Unknown Verified 01/18/24 16:34
tramadol Allergy Unknown Verified 01/18/24 16:34
�Medication �Instructions �Recorded �Confirmed �Type
amlodipine 10 mg tablet (Norvasc) 10 mg feeding tube DAILY Blood 12/27/23 01/18/24 History
Pressure
aspirin 81 mg chewable tablet 81 mg feeding tube DAILY Blood 12/27/23 01/18/24 History
Clot Prevention/Tx
atorvastatin 20 mg tablet (Lipitor) 20 mg feeding tube HS High 12/27/23 01/18/24 History
Cholesterol
bisacodyl 10 mg rectal suppository 10 mg ME DAILYPRN PRN if no bm 12/27/23 01/18/24 History
(Dulcolax (bisacodyl)) aftr mom
clonidine 0.1 mg/24 hr weekly 1 patch transdermal TH Blood 12/27/23 01/18/24 History
transdermal patch Pressure
ferrous sulfate 300 mg (60 mg 300 mg feeding tube DAILY 12/27/23 01/18/24 History
iron)/5 mL oral liquid Supplement
insulin lispro 100 unit/mL 1 - 3 sliding scale dose SC AC 12/27/23 01/18/24 History
subcutaneous pen Diabetes
lacosamide 10 mg/mL oral solution 100 mg feeding tube BID Seizures 12/27/23 01/18/24 History
(Vimpat)
melatonin 3 mg tablet 3 mg feeding tube HSPRN PRN SLEEP 12/27/23 01/18/24 History
polyethylene glycol 3350 17 gram 17 g feeding tube DAILYPRN PRN 12/27/23 01/18/24 History
oral powder packet (Miralax) CONSTIPATION
apixaban 5 mg tablet (Eliquis) 5 mg feeding tube BID Blood Clot 01/03/24 01/18/24 Rx
Prevention/Tx #1 tab
hydralazine 50 mg tablet 50 mg feeding tube Q8 #0 tabs 01/03/24 01/18/24 Rx
lansoprazole 30 mg delayed 30 mg feeding tube DAILY #1 tab 01/03/24 01/18/24 Rx
release,disintegrating tablet
losartan 100 mg tablet 100 mg feeding tube DAILY #0 tabs 01/03/24 01/18/24 Rx
magnesium hydroxide 400 mg/5 mL 30 ml feeding tube HSPRN PRN if no 01/18/24 01/18/24 History
oral suspension (Milk of Magnesia) bm in 3 days
Review of Systems
-
Unable to obtain full review of systems at this time due to: Dementia
All other systems: Negative unless noted
Physical Exam
Vital Signs
Vital Signs
Temp Pulse Resp BP Pulse Ox
98.1 F 75 18 199/84 99
01/19/24 07:00 01/19/24 08:38 01/19/24 07:00 01/19/24 08:38 01/19/24 07:00
Lab Results
WBC 9.9 10^3/uL (4.8-10.8) 01/19/24 07:52
RBC 2.62 10^6/uL (4.20-5.40) L 01/19/24 07:52
Hgb 7.9 g/dL (12.0-16.0) L 01/19/24 07:52
Hct 22.8 % (37.0-47.0) L 01/19/24 07:52
Plt Count 335 10^3/uL (130-400) 01/19/24 07:52
Sodium 130 mmol/L (135-145) L 01/19/24 07:52
Potassium 3.2 mmol/L (3.5-5.1) L 01/19/24 07:52
Chloride 97 mmol/L (98-107) L 01/19/24 07:52
Carbon Dioxide 27 mmol/L (22-30) 01/19/24 07:52
BUN 49 mg/dl (7-17) H 01/19/24 07:52
Creatinine 3.5 mg/dL (0.6-1.0) H 01/19/24 07:52
eGFR 13.15 01/19/24 07:52
Glucose 153 mg/dl (70-99) H 01/19/24 07:52
Calcium 8.8 mg/dl (8.4-10.2) 01/19/24 07:52
Phosphorus 3.0 mg/dl (2.5-4.5) 01/19/24 07:52
Albumin 3.0 g/dl (3.5-5.0) L 01/19/24 07:52
Physical Exam
Patient is awake alert oriented and in no distress. Mood and affect were pleasant, insight and judgment were good. Pupils are equal round and reactive to light, extraocular movements are intact, sclera were anicteric. Hearing was normal, ears and
nose are intact. Oropharynx was clear. Neck was supple with trachea midline and no thyromegaly. Heart was regular rate and rhythm without rubs. Lower extremities with1+ edema. Lungs were clear to auscultation bilaterally and with normal
excursion. Abdomen was soft, nontender, with normal active bowel sounds, and no hepatosplenomegaly. Skin was without rash and with normal turgor.
Data Reviewed
-
Radiology: Image Personally Visualized and interpreted (Chest x-ray on January 18, 2024 by my reading shows loop recorder on the left side, cardiomegaly, vascular prominence, possible left lower lobe opacity)
Labs: Labs Reviewed by me (Hemoglobin 6.7, potassium 3.2, sodium 130, creatinine 3.5)
Old Records: Reviewed (On 12/27/2023 hemoglobin 5.9)
Assessment/Plan
-
Assessment:
ESRD on HD tunneled dialysis catheter
Anemia acute
HTN
Dementia
Plan:
Dialysis today
Return to normal schedule next week Sunday for dialysis
Transfuse as needed
Her last admission recently she had a GI workup which had shown no active bleeding on EGD or colonoscopy.
Need for oral anticoagulation with Eliquis will need to be determined given 2 [id number] admissions for severe anemia
--- NOTE | 2024-01-19 12:07 | W.PN.NEPH.HD ---
Assessment
-
Seen on HD. no complaints. VSS, hypertense. UF goal increased. Access ok
transfuse as needed
Progress Note - Hemodialysis
-
Date of Service: January 19, 2024
Duration: 30 minutes and 3 hours
Potassium Bath: 3
Calcium Bath: 2.5
Opti-Dialyzer: 160
Ultrafiltration: Other (3kg)
Blood Flow: 400
Dialysate Flow: 600
Heparin: no
EPO: [id number] units
[2024-01-19] MEDS: COZAAR 100 MG TUBE (12:18)
[2024-01-19] MEDS: LOW STRENGTH ASPIRIN 81 MG TUBE (12:18)
[2024-01-19] MEDS: NORVASC 10 MG TUBE (12:18)
[2024-01-19] MEDS: VIMPAT 100 MG TUBE ×2 (12:19→20:24)
[2024-01-19] MEDS: PREVACID 30 MG TUBE (12:19)
[2024-01-19] MEDS: FERROUS SULFATE ORAL LIQUID 300 MG TUBE (12:19)
[2024-01-19 12:29] VITALS: BMI 29.0
[2024-01-19 15:00] VITALS: BP 147/70
[2024-01-19 19:35] VITALS: BP 163/63
[2024-01-19] MEDS: LIPITOR 20 MG TUBE (20:24)
[2024-01-19 23:07] VITALS: BP 168/57
[2024-01-20] MEDS: MELATONIN 3 MG TUBE (00:02)
[2024-01-20 03:05] VITALS: BP 164/59
[2024-01-20 06:05] VITALS: BMI 28.2
[2024-01-20 06:12] VITALS: BMI 28.2
[2024-01-20 06:13] LABS: % Basophils 0.7 % (0-2); % Eosinophils 11.1 % (0-6); % Immature Granulocytes 0.9 % (0-0.5); % Lymphocytes 21.5 % (20.5-51.1); % Monocytes 7.7 % (1.7-9.3); % Neutrophils 58.1 % (42.2-75.2); Absolute Basophils 0.1 10^3/uL (0-0.2); Absolute Eosinophils 1.2 10^3/uL (0-0.7); Absolute Immature Granulocytes 0.1 10^3/uL (0-0.05); Absolute Lymphocytes 2.3 10^3/uL (1.2-3.4); Absolute Monocytes 0.8 10^3/uL (0.1-0.6); Absolute Neutrophils 6.3 10^3/uL (1.4-6.5); Hemoglobin 7.8 g/dL (12.0-16.0); Mean Corp Hgb Conc. 33.9 g/dL (33.0-37.0); Mean Corpuscular Hgb 30.6 pg (27.0-31.0); Mean Corpuscular Volume 90.2 fL (81.0-99.0); Mean Platelet Volume 8.9 fL (7.4-10.4); Nucleated Red Blood Cells % 0 %; Platelet Count 280 10^3/uL (130-400); Red Blood Cell Count 2.55 10^6/uL (4.20-5.40); Red Cell Dist. Width 14.5 % (11.5-14.5); White Blood Cell Count 10.9 10^3/uL (4.8-10.8)
[2024-01-20 06:37] LABS: Albumin 2.6 g/dl (3.5-5.0); Blood Urea Nitrogen 27 mg/dl (7-17); Calcium 8.6 mg/dl (8.4-10.2); Carbon Dioxide 29 mmol/L (22-30); Chloride 96 mmol/L (98-107); Estimated Creatinine Clearance 19 ml/min; Glucose 165 mg/dl (70-99); Phosphorus 2.1 mg/dl (2.5-4.5); Potassium 3.4 mmol/L (3.5-5.1); Sodium 129 mmol/L (135-145); eGFR 20.68
[2024-01-20 07:45] VITALS: BP 164/54
[2024-01-20] MEDS: APRESOLINE 50 MG TUBE ×2 (09:10→15:19)
[2024-01-20] MEDS: FERROUS SULFATE ORAL LIQUID 300 MG TUBE (09:10)
[2024-01-20] MEDS: COZAAR 100 MG TUBE (09:10)
[2024-01-20] MEDS: NORVASC 10 MG TUBE (09:10)
[2024-01-20] MEDS: LOW STRENGTH ASPIRIN 81 MG TUBE (09:10)
[2024-01-20] MEDS: VIMPAT 100 MG TUBE ×2 (09:10→20:15)
[2024-01-20] MEDS: PREVACID 30 MG TUBE (09:11)
[2024-01-20] MEDS: ELIQUIS 5 MG TUBE ×2 (09:11→20:15)
[2024-01-20 11:03] VITALS: BP 174/66
--- NOTE | 2024-01-20 11:20 | W.PN.HOSP.TC ---
Addendum entered and electronically signed by Jackie Duffy MD 01/20/24 11:52:
discussed plan with daughter
given multiple recent admissions for anemia - plan will be to keep one more night and give transfusion with HD tomorrow then patient can leave
mild leukocytosis
-no e/o infection
-monitor
Original Note:
Today's Communication/Plan
-
dispo planning
Assessment / Plan
Assessment / Plan
#Acute on chronic anemia of of CKD
#Hx iron deficiency anemia
-Hg was 6.7 on admit, now 7.8 after 1 unit PRBC
-patient was admitted in December s/p EGD/[place] without source of bleeding found
-Eliquis was held during December admission and resumed on 01/05/2024
-Continue Prevacid 30 mg disintegrating tablet via G-tube
EGD: Unremarkable without source of bleeding
Colonoscopy 12/27/2023: No source of bleeding multiple polypectomies proximal ascending colon, sigmoid colon removed with snare, internal hemorrhoids all benign neoplasm
-Hg stable
-continue outpatient follow up with discussion capsule study
#ESRD on HD MOWEFR
Left IJ permacath
-s/p HD on 01/18
-continue HD outpatient MWF
Hyponatremia
-continue fluid removal with dialysis
-decrease FWF
#Dysphagia status post PEG tube
-All meds via PEG tube
-continue TF (decrease FWF)
#Paroxysmal A-fib
-On Eliquis 5 mg twice daily
#HTN�benign multidrug-resistant
-Continue Norvasc 10 mg, clonidine transdermal patch, hydralazine 50 mg every 8h, losartan 100 mg was increased recent admission
#Hx CVA with immobility, dysphagia
#Seizure disorder
hx EEG 01/04/24 no seizures,no mention of taking keppra
-Continue Vimpat 100 mg twice daily
#Dementia�severe
Keep head of bed raised to 30 degrees at all times
-May suction secretions
-Oriented to first and last name only
#CAD prior NSTEMI
Continue aspirin 81 mg daily, BP control,
#DM 2 with history of episodes of hypoglycemia in past
Accu-Cheks with SSI low
Lantus was discontinued on recent admission December
DVT prophylaxis
SCDs
Full code
Anticipated Discharge: Within 24 hours
Subjective/Interval History
-
Date of Service: January 20, 2024
states she's doing okay
appears less swollen
Objective Data
-
Labs:
Laboratory Results
01/20/24
06:04
WBC 10.9 H
Hgb 7.8 L
Hct 23.0 L
Plt Count 280
Sodium 129 L
Potassium 3.4 L
Chloride 96 L
Carbon Dioxide 29
BUN 27 H
Creatinine 2.4 H
Glucose 165 H
Calcium 8.6
Vital Signs:
Vital Signs
Temp Pulse Resp BP Pulse Ox
98.9 F 66 18 174/66 100
01/20/24 11:03 01/20/24 11:03 01/20/24 11:03 01/20/24 11:03 01/20/24 11:03
I&O
01/19/24 01/20/24 01/21/24
06:59 06:59 06:59
Intake Total 575 / 575 950 / 950
Balance 575 / 575 950 / 950
Review of Systems
-
History Source: Patient
All other systems: Reviewed and negative
Physical Exam
-
General: Well Developed, Well Nourished, No Apparent Distress and Comfortable
Respiratory: Decreased Breath Sounds
Cardiac: Regular Rhythm, S1/S2 and Murmur
GI: Soft, Nondistended and Peg Tube
Skin: Warm and Dry
Neuro: Awake, Alert and Other (gives simple one word answers)
Psych: Calm and Apparent Dementia; Negative Intact Judgement/Insight
Data Reviewed
-
Diagnostic Radiology: Report Reviewed by me
Labs: Labs Reviewed by me
--- NOTE | 2024-01-20 11:34 | W.PN.NEPH.PH ---
Today's Communication / Plan
-
HD tomorrow
Assessment/Plan
-
Assessment:
ESRD on HD tunneled dialysis catheter
Anemia acute
HTN
Dementia
Plan:
HD tomorrow
Transfuse as needed
Her last admission recently she had a GI workup which had shown no active bleeding on EGD or colonoscopy.
Need for oral anticoagulation with Eliquis will need to be determined given 2 [id number] admissions for severe anemia
dc planning
-
-
Date of Service: January 20, 2024
CC / HPI / ROS
-
Chief Complaint:
ESRD
History of Present Illness:
BP stable
tolerated HD yesterday
Hgb up to 7.8 after transfusion
Review of Systems:
no CP/SOB
Labs
-
Labs:
WBC 10.9 10^3/uL (4.8-10.8) H 01/20/24 06:04
RBC 2.55 10^6/uL (4.20-5.40) L 01/20/24 06:04
Hgb 7.8 g/dL (12.0-16.0) L 01/20/24 06:04
Hct 23.0 % (37.0-47.0) L 01/20/24 06:04
Plt Count 280 10^3/uL (130-400) 01/20/24 06:04
Sodium 129 mmol/L (135-145) L 01/20/24 06:04
Potassium 3.4 mmol/L (3.5-5.1) L 01/20/24 06:04
Chloride 96 mmol/L (98-107) L 01/20/24 06:04
Carbon Dioxide 29 mmol/L (22-30) 01/20/24 06:04
BUN 27 mg/dl (7-17) H 01/20/24 06:04
Creatinine 2.4 mg/dL (0.6-1.0) H 01/20/24 06:04
eGFR 20.68 01/20/24 06:04
Glucose 165 mg/dl (70-99) H 01/20/24 06:04
Calcium 8.6 mg/dl (8.4-10.2) 01/20/24 06:04
Phosphorus 2.1 mg/dl (2.5-4.5) L 01/20/24 06:04
Albumin 2.6 g/dl (3.5-5.0) L 01/20/24 06:04
Physical Exam
-
Vital Signs:
Vital Signs
Temp Pulse Resp BP Pulse Ox
98.9 F 66 18 174/66 100
01/20/24 11:03 01/20/24 11:03 01/20/24 11:03 01/20/24 11:03 01/20/24 11:03
Cardiovascular:: Regular rate and rhythm
Respiratory:: Bilateral: Coarse
Lung Excursion:: Normal
Abdomen:: Nontender and Soft
Bowel Sounds:: Normal
Extremity Edema:: +2: Bilateral:
--- NOTE | 2024-01-20 13:48 | PTCARENOTE ---
ordered blood to be given with Dialysis tomorrow 01/21/24. Just wanted to clarify in the chart that the pt is not receiving blood today but tomorrow 01/21/24 during dialysis
--- NOTE | 2024-01-20 13:57 | CM ---
Addendum entered by Syeda Harrison 01/20/24 14:05:
Pharmacy verified with Arvind from [facility]; chart updated
Original Note:
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
Has Dementia
Requires Total Care; Hemodialysis
Ambulance transport needed
Plan: discharge back to [facility] tomorrow
[2024-01-20 15:00] VITALS: BP 182/57
[2024-01-20 19:30] VITALS: BP 159/61
[2024-01-20] MEDS: LIPITOR 20 MG TUBE (20:15)
[2024-01-20 23:45] VITALS: BP 179/55
[2024-01-21] VITALS (9 sets, daily range): BP systolic 160–180; BP diastolic 55–96; BMI 28.8
[2024-01-21] MEDS: APRESOLINE 50 MG TUBE ×3 (01:00→16:26)
--- NOTE | 2024-01-21 08:35 | PTCARENOTE ---
pt receiving dialysis treatment this morning and will wait until finished to give pt her meds until dialysis is completed.
[2024-01-21 08:41] LABS: % Basophils 0.4 % (0-2); % Eosinophils 10.8 % (0-6); % Lymphocytes 17.3 % (20.5-51.1); % Monocytes 6.9 % (1.7-9.3); % Neutrophils 63.6 % (42.2-75.2); Absolute Basophils 0.1 10^3/uL (0-0.2); Absolute Eosinophils 1.3 10^3/uL (0-0.7); Absolute Immature Granulocytes 0.1 10^3/uL (0-0.05); Absolute Monocytes 0.8 10^3/uL (0.1-0.6); Absolute Neutrophils 7.5 10^3/uL (1.4-6.5); Hemoglobin 7.8 g/dL (12.0-16.0); Mean Corp Hgb Conc. 33.9 g/dL (33.0-37.0); Mean Corpuscular Hgb 29.8 pg (27.0-31.0); Mean Corpuscular Volume 87.8 fL (81.0-99.0); Mean Platelet Volume 9.4 fL (7.4-10.4); Nucleated Red Blood Cells % 0 %; Platelet Count 347 10^3/uL (130-400); Red Blood Cell Count 2.62 10^6/uL (4.20-5.40); Red Cell Dist. Width 14.5 % (11.5-14.5); White Blood Cell Count 11.8 10^3/uL (4.8-10.8)
[2024-01-21 08:48] LABS: Albumin 2.8 g/dl (3.5-5.0); Blood Urea Nitrogen 46 mg/dl (7-17); Calcium 8.9 mg/dl (8.4-10.2); Carbon Dioxide 28 mmol/L (22-30); Chloride 94 mmol/L (98-107); Estimated Creatinine Clearance 14 ml/min; Glucose 159 mg/dl (70-99); Iron 48 ug/dl (37-170); Phosphorus 2.2 mg/dl (2.5-4.5); Potassium 3.2 mmol/L (3.5-5.1); Sodium 127 mmol/L (135-145); eGFR 14.64
[2024-01-21 08:59] LABS: Percent Saturation 31 % (20-50); Total Iron Binding Capacity 154 ug/dl (265-497)
--- NOTE | 2024-01-21 09:01 | W.PN.HOSP.TC ---
Today's Communication/Plan
-
Blood transfusion. Hemodialysis. Continue to monitor hemoglobin
Assessment / Plan
Assessment / Plan
Physical exam:
General: Chronically ill
HEENT: Normocephalic, Atraumatic and Moist Mucous Membranes
Respiratory: Clear to Auscultation; Negative Wheezes, Rales or Rhonchi
Cardiac: Regular Rhythm and S1/S2
GI: Soft, Nontender and Nondistended
Musculoskeletal: No Clubbing, No Cyanosis and No Edema
Neuro: Awake, Alert and Disoriented
Psych: Calm
A/P:
#Acute on chronic anemia of of CKD
#Hx iron deficiency anemia
-Hg was 6.7 on admit, now 7.8 after 1 unit PRBC
-patient was admitted in December s/p EGD/[place] without source of bleeding found
-Eliquis was held during December admission and resumed on 01/05/2024
-Continue Prevacid 30 mg disintegrating tablet via G-tube
EGD: Unremarkable without source of bleeding
Colonoscopy 12/27/2023: No source of bleeding multiple polypectomies proximal ascending colon, sigmoid colon removed with snare, internal hemorrhoids all benign neoplasm
-Hg with slight drift down and required transfusion with 1 more unit of blood today. Back on Eliquis.
-continue outpatient follow up with discussion capsule study
-Will request hematology eval as well for further advice
#ESRD on HD MOWEFR
Left IJ permacath
-s/p HD on 01/18
-continue HD outpatient MWF
Hyponatremia
-continue fluid removal with dialysis
-decrease FWF
#Dysphagia status post PEG tube
-All meds via PEG tube
-continue TF (decrease FWF)
#Paroxysmal A-fib
-On Eliquis 5 mg twice daily
#HTN�benign multidrug-resistant
-Continue Norvasc 10 mg, clonidine transdermal patch, hydralazine 50 mg every 8h, losartan 100 mg was increased recent admission
#Hx CVA with immobility, dysphagia
#Seizure disorder
hx EEG 01/04/24 no seizures,no mention of taking keppra
-Continue Vimpat 100 mg twice daily
#Dementia�severe
Keep head of bed raised to 30 degrees at all times
-May suction secretions
-Oriented to first and last name only
#CAD prior NSTEMI
Continue aspirin 81 mg daily, BP control,
#DM 2 with history of episodes of hypoglycemia in past
Accu-Cheks with SSI low
Lantus was discontinued on recent admission December
DVT prophylaxis
SCDs
CODE STATUS:
Full code
Anticipated Discharge: 24 - 48 hours
Subjective/Interval History
-
Date of Service: January 21, 2024
Patient seen at hemodialysis. No new complaints
Objective Data
-
Labs:
Laboratory Results
01/21/24
07:41
WBC 11.8 H
Hgb 7.8 L
Hct 23.0 L
Plt Count 347 D
Sodium 127 L
Potassium 3.2 L
Chloride 94 L
Carbon Dioxide 28
BUN 46 H
Creatinine 3.2 H
Glucose 159 H
Calcium 8.9
Vital Signs:
Vital Signs
Temp Pulse Resp BP Pulse Ox
98.5 F 73 20 173/66 100
01/21/24 08:51 01/21/24 08:51 01/21/24 08:51 01/21/24 08:51 01/21/24 07:34
I&O
01/20/24 01/21/24 01/22/24
06:59 06:59 06:59
Intake Total 950 / 950 775 / 775 0 / 0
Balance 950 / 950 775 / 775 0 / 0
[2024-01-21] MEDS: RETACRIT 12000 UNITS IV (09:18)
--- NOTE | 2024-01-21 10:00 | W.PN.NEPH.HD ---
Assessment
-
pt seen during HD
vitals are stable
CVC functions well
s/p PRBC with HD and high dose LAURA
adequate iron stores
Progress Note - Hemodialysis
-
Date of Service: January 21, 2024
Duration: 30 minutes and 3 hours
Potassium Bath: 4
Calcium Bath: 2.5
Opti-Dialyzer: 160
Ultrafiltration: Other (2kg)
Blood Flow: 400
Dialysate Flow: 600
Heparin: no
EPO: [id number]
[2024-01-21] MEDS: HEPARIN 4200 UNITS INTRACATH (11:02)
[2024-01-21] MEDS: VIMPAT 100 MG TUBE ×2 (11:46→19:46)
[2024-01-21] MEDS: LOW STRENGTH ASPIRIN 81 MG TUBE (11:46)
[2024-01-21] MEDS: COZAAR 100 MG TUBE (11:46)
[2024-01-21] MEDS: FERROUS SULFATE ORAL LIQUID 300 MG TUBE (11:46)
[2024-01-21] MEDS: PREVACID 30 MG TUBE (11:47)
[2024-01-21] MEDS: NORVASC 10 MG TUBE (11:47)
[2024-01-21] MEDS: ELIQUIS 5 MG TUBE ×2 (11:47→19:46)
--- NOTE | 2024-01-21 13:30 | WOUNDNOTE ---
WON RN note: Patient admitted with anemia from [facility].
See H&P for complete history.
PMH: Dementia, seizures, RF with dialysis, A fib. CHF,DVT, dysphagia-Feeding tube.
Wound Location and type/assessment: Patient admitted with: Skin breakdown on buttocks and Sacrum from suspected MASD rather than true pressure injury. Nurse Donny who assisted with turning patient, confirmed that patient is incontinent of stool and
mucous, patient is anuric. Barrier cream in use, skin is fragile, easily peels when cleaned, small drainage. R heel with intact tiny scab, suspect old abrasion vs PI. L lateral upper back near Axilla with small abrasion, few other scabs/healed
abrasions nearby.
Appetite: NPO, TF with Nepro.
Pressure redistribution devices in place: On Accumax, turns with assist. Asked nurse Donny to call bed tech at ext [phone] if patient not being discharged today, to get [facility] air bed. Pillow placed under calves.
Plan: Barrier cream or foams to buttocks change daily and prn soilage. Foam adhesives changed on heels. silicone foam to L axilla, change q 3 days. Will confirm orders with hospitalist and updated nurse.
Updated care plan and will follow as needed.
Note to case management of equipment requested for discharge: Air mattress
--- NOTE | 2024-01-21 14:55 | CM ---
Plan: back to [facility] when stable.
Patient will require ambulance transport.
No auth required
[facility]
Report# [phone]
[2024-01-21] MEDS: LIPITOR 20 MG TUBE (19:46)
[2024-01-22] MEDS: APRESOLINE 50 MG TUBE ×3 (00:11→15:50)
[2024-01-22 03:15] VITALS: BP 175/67
[2024-01-22 06:25] VITALS: BMI 28.6
[2024-01-22 06:58] LABS: % Basophils 0.8 % (0-2); % Eosinophils 9.2 % (0-6); % Immature Granulocytes 1.8 % (0-0.5); % Lymphocytes 23.3 % (20.5-51.1); % Monocytes 6.7 % (1.7-9.3); % Neutrophils 58.2 % (42.2-75.2); Absolute Basophils 0.1 10^3/uL (0-0.2); Absolute Immature Granulocytes 0.2 10^3/uL (0-0.05); Absolute Lymphocytes 2.6 10^3/uL (1.2-3.4); Absolute Monocytes 0.8 10^3/uL (0.1-0.6); Absolute Neutrophils 6.6 10^3/uL (1.4-6.5); Hematocrit 28.2 % (37.0-47.0); Hemoglobin 9.7 g/dL (12.0-16.0); Mean Corp Hgb Conc. 34.4 g/dL (33.0-37.0); Mean Corpuscular Hgb 30.5 pg (27.0-31.0); Mean Corpuscular Volume 88.7 fL (81.0-99.0); Mean Platelet Volume 9.2 fL (7.4-10.4); Nucleated Red Blood Cells % 0 %; Platelet Count 320 10^3/uL (130-400); Red Blood Cell Count 3.18 10^6/uL (4.20-5.40); Red Cell Dist. Width 14.7 % (11.5-14.5); White Blood Cell Count 11.3 10^3/uL (4.8-10.8)
[2024-01-22 07:41] LABS: Blood Urea Nitrogen 31 mg/dl (7-17); Calcium 8.5 mg/dl (8.4-10.2); Carbon Dioxide 31 mmol/L (22-30); Chloride 95 mmol/L (98-107); Estimated Creatinine Clearance 19 ml/min; Glucose 163 mg/dl (70-99); Potassium 3.5 mmol/L (3.5-5.1); Sodium 129 mmol/L (135-145); eGFR 20.68
[2024-01-22 07:55] VITALS: BP 172/60
--- NOTE | 2024-01-22 08:56 | CON.ONC ---
Documented by User: [email or web address] Rae 01/22/24 11:49
Impression
Impression
Dementia
ESRD
AOCKD
Acute on chronic anemia s/p 4units PRBC since 12/26
Dysphagia with PEG
PAF on DOAC
seizure disorder
Plan
Plan
transfuse PRN. Iron studies difficult to interpret since she received transfusion prior to collection. With ferritin 700, no role for iron repletion at this time. She should continue LAURA/Iron protocol with HD and transfusion prn.
Colonoscopy 01/02/2024 notes inadequate preparation, defer to GI if there is a role for further GI evaluation
check heme stool
Would defer to GI/cardiology to determine risk/benefit re: bleeding risk vs AF stroke risk regarding DOAC
check B12, folate, retic, LDH, and haptoglobin for completeness of anemia evaluation
Patient History
History of Present Illness
73yo F presented from [facility] due to anemia with Hgb 6.5g/dL when checked at dialysis. She was hospitalized in December 2023 with anemia and heme+ black stool. She underwent EGD 12/31/2023 that was unremarkable without source of bleeding. Her
colonoscopy 01/02/2024 showed no source of bleeding multiple polypectomies proximal ascending colon, sigmoid colon removed with snare, internal hemorrhoids. Pathology from colon polypectomy showed tubular adenoma. During her December 2023
hospitalization she received 2 units PRBC. She is again admitted and transfused with 1 unit prbc 01/17 and 01/20 with improvement of Hgb to 9.7g/dL today. Iron 48, TIBC 154, IS 31%, ferritin 705, WBC 11.3, platelets 320,000, sodium 129, BUN 31,
creatinine 2.4. CXR showed possible LLE PNA, possible vascular congestion.
She has underlying dementia, unwilling or unable to answer questions or follow commands History obtained via chart review. She has chronic ambulatory and swallow dysfunction due to prior CVA deficits. She utilizes a PEG for alternate nutritional
support.
Past-Medical/Surgical History
PMH: CVA, Iron Deficiency, ESRD on HD, ASCVD with Prior CVA, CAD, Chronic Dysphagia / Aphasia - PEG Dependent, Paroxysmal Atrial Fibrillation, Benign Hypertension, Seizure Disorder, DM-II
PSH: Left IJ permacath
Social:unable to obtain
Family: unable to obtain
Patient Medication
�Medication �Instructions �Recorded �Confirmed �Last Taken �Type
amlodipine 10 mg tablet (Norvasc) 10 mg feeding tube DAILY Blood 12/27/23 01/18/24 Unknown History
Pressure
aspirin 81 mg chewable tablet 81 mg feeding tube DAILY Blood 12/27/23 01/18/24 Unknown History
Clot Prevention/Tx
atorvastatin 20 mg tablet (Lipitor) 20 mg feeding tube HS High 12/27/23 01/18/24 Unknown History
Cholesterol
bisacodyl 10 mg rectal suppository 10 mg NC DAILYPRN PRN if no bm 12/27/23 01/18/24 Unknown History
(Dulcolax (bisacodyl)) aftr mom
clonidine 0.1 mg/24 hr weekly 1 patch transdermal TH Blood 12/27/23 01/18/24 Unknown History
transdermal patch Pressure
ferrous sulfate 300 mg (60 mg 300 mg feeding tube DAILY 12/27/23 01/18/24 Unknown History
iron)/5 mL oral liquid Supplement
insulin lispro 100 unit/mL 1 - 3 sliding scale dose SC AC 12/27/23 01/18/24 Unknown History
subcutaneous pen Diabetes
lacosamide 10 mg/mL oral solution 100 mg feeding tube BID Seizures 12/27/23 01/18/24 Unknown History
(Vimpat)
melatonin 3 mg tablet 3 mg feeding tube HSPRN PRN SLEEP 12/27/23 01/18/24 Unknown History
polyethylene glycol 3350 17 gram 17 g feeding tube DAILYPRN PRN 12/27/23 01/18/24 Unknown History
oral powder packet (Miralax) CONSTIPATION
apixaban 5 mg tablet (Eliquis) 5 mg feeding tube BID Blood Clot 01/03/24 01/18/24 Unknown Rx
Prevention/Tx #1 tab
hydralazine 50 mg tablet 50 mg feeding tube Q8 #0 tabs 01/03/24 01/18/24 Unknown Rx
lansoprazole 30 mg delayed 30 mg feeding tube DAILY #1 tab 01/03/24 01/18/24 Unknown Rx
release,disintegrating tablet
losartan 100 mg tablet 100 mg feeding tube DAILY #0 tabs 01/03/24 01/18/24 Unknown Rx
magnesium hydroxide 400 mg/5 mL 30 ml feeding tube HSPRN PRN if no 01/18/24 01/18/24 Unknown History
oral suspension (Milk of Magnesia) bm in 3 days
Active Medications
Generic Name Dose Route Start Last Admin
Trade Name Freq PRN Reason Stop Dose Admin
Amlodipine Besylate 10 mg 01/19/24 08:00 01/21/24 11:47
Amlodipine 10 Mg Tablet TUBE 02/16/24 07:59 10 mg
DAILY ROLY Administration
Apixaban 5 mg 01/19/24 08:00 01/21/24 19:46
Apixaban (Eliquis) 5 Mg Tablet TUBE 02/16/24 07:59 5 mg
BID ROLY Administration
Aspirin 81 mg 01/19/24 08:00 01/21/24 11:46
Aspirin 81 Mg Chewable Tablet TUBE 02/16/24 07:59 81 mg
DAILY ROLY Administration
Atorvastatin Calcium 20 mg 01/18/24 22:15 01/21/24 19:46
Atorvastatin (Lipitor) 20 Mg Tablet TUBE 02/15/24 22:14 20 mg
HS ROLY Administration
Bisacodyl 10 mg 01/18/24 22:15
Bisacodyl 10 Mg Rectal Suppository RECTAL 02/15/24 22:14
DAILYPRN PRN
if no bm aftr mom
Clonidine HCl 0.1 mg 01/24/24 08:00
Clonidine 0.1 Mg Patch TRANSDERM 02/21/24 07:59
TH ROLY
Ferrous Sulfate 300 mg 01/19/24 08:00 01/21/24 11:46
Ferrous Sulfate Liquid (300 Mg/5 Ml) Cup TUBE 02/16/24 07:59 300 mg
DAILY ROLY Administration
Hydralazine HCl 50 mg 01/19/24 00:00 01/22/24 00:11
Hydralazine 50 Mg Tablet TUBE 02/16/24 00:00 50 mg
Q8 ROLY Administration
Lacosamide 100 mg 01/19/24 08:00 01/21/24 19:46
Lacosamide (Vimpat) Oral Solution 100 Mg/10 Ml Cup TUBE 02/16/24 07:59 100 mg
BID ROLY Administration
Lansoprazole 30 mg 01/19/24 08:00 01/21/24 11:47
Lansoprazole 30 Mg Solutab TUBE 02/16/24 07:59 30 mg
DAILY ROLY Administration
Losartan Potassium 100 mg 01/19/24 08:00 01/21/24 11:46
Losartan 100 Mg Tablet TUBE 02/16/24 07:59 100 mg
DAILY ROLY Administration
Melatonin 3 mg 01/18/24 22:15 01/20/24 00:02
Melatonin 3 Mg Tablet TUBE 02/15/24 22:14 3 mg
HSPRN PRN Administration
SLEEP
Sodium Chloride 0 flush 01/18/24 23:00
Sodium Chloride 0.9% (Flush) Syringe IV 02/15/24 22:59
PER PROTOCOL ROLY
Review of Systems
-
Unable to obtain full review of systems at this time due to: Dementia
Physical Exam
-
General: No Apparent Distress
HEENT: Moist Mucous Membranes; Negative Jaundice
Cardiology: S1 and S2
Pulmonary: Clear
GI: Soft and Other (PEG)
Neurology: Other (unwilling or unable to answer questions or follow commands)
Skin: Warm
Psych: Calm
Labs
Lab Results
WBC 11.3 10^3/uL (4.8-10.8) H 01/22/24 06:32
RBC 3.18 10^6/uL (4.20-5.40) L 01/22/24 06:32
Hgb 9.7 g/dL (12.0-16.0) L D 01/22/24 06:32
Hct 28.2 % (37.0-47.0) L 01/22/24 06:32
MCV 88.7 fL (81.0-99.0) 01/22/24 06:32
MCH 30.5 pg (27.0-31.0) 01/22/24 06:32
MCHC 34.4 g/dL (33.0-37.0) 01/22/24 06:32
RDW 14.7 % (11.5-14.5) H 01/22/24 06:32
Plt Count 320 10^3/uL (130-400) 01/22/24 06:32
MPV 9.2 fL (7.4-10.4) 01/22/24 06:32
Abs Immat Gran (auto) 0.2 10^3/uL (0-0.05) H 01/22/24 06:32
Absolute Neuts (auto) 6.6 10^3/uL (1.4-6.5) H 01/22/24 06:32
Absolute Lymphs (auto) 2.6 10^3/uL (1.2-3.4) 01/22/24 06:32
Absolute Monos (auto) 0.8 10^3/uL (0.1-0.6) H 01/22/24 06:32
Absolute Eos (auto) 1.0 10^3/uL (0-0.7) H 01/22/24 06:32
Absolute Basos (auto) 0.1 10^3/uL (0-0.2) 01/22/24 06:32
Immature Gran % 1.8 % (0-0.5) H 01/22/24 06:32
Neutrophils % 58.2 % (42.2-75.2) 01/22/24 06:32
Lymphocytes % 23.3 % (20.5-51.1) 01/22/24 06:32
Monocytes % 6.7 % (1.7-9.3) 01/22/24 06:32
Eosinophils % 9.2 % (0-6) H 01/22/24 06:32
Basophils % 0.8 % (0-2) 01/22/24 06:32
Creatinine 2.4 mg/dL (0.6-1.0) H 01/22/24 06:32
Vital Signs
Vital Signs
Temp Pulse Resp BP Pulse Ox
98.4 F 68 20 172/60 99
01/22/24 07:55 01/22/24 07:55 01/22/24 07:55 01/22/24 07:55 01/22/24 07:55

Documented by User: Radha Mills MD 01/22/24 15:13
Impression
Impression
Dementia
ESRD
AOCKD
Acute on chronic anemia s/p 4units PRBC since 12/26
Heme + stool, 12/2023
Dysphagia with PEG
PAF on DOAC
seizure disorder
Plan
Plan
Anemia is secondary to CKD5 and GI blood loss, on Eliquis.
Would transfuse as clinically indicated
Continue LAURA on HD
With ferritin 700, no role for iron repletion at this time. Could stop oral iron. Continue LAURA/Iron protocol per HD.
Colonoscopy 01/02/2024 notes inadequate preparation, defer to GI if there is a role for further GI evaluation
Would defer to GI/cardiology to determine risk/benefit re: bleeding risk vs AF stroke risk regarding DOAC
Check B12, folate, retic, LDH, and haptoglobin for completeness of anemia evaluation; if normal, hematology will sign off.
Patient History
History of Present Illness
73yo F presented from [facility] due to anemia with Hgb 6.5g/dL when checked at dialysis. She was hospitalized in December 2023 with anemia and heme+ black stool. She underwent EGD 12/31/2023 that was unremarkable without source of bleeding. Her
colonoscopy 01/02/2024 showed no source of bleeding multiple polypectomies proximal ascending colon, sigmoid colon removed with snare, internal hemorrhoids. Pathology from colon polypectomy showed tubular adenoma. During her December 2023
hospitalization she received 2 units PRBC. She is again admitted and transfused with 1 unit prbc 01/17 and 01/20 with improvement of Hgb to 9.7g/dL today. Iron 48, TIBC 154, IS 31%, ferritin 705, WBC 11.3, platelets 320,000, sodium 129, BUN 31,
creatinine 2.4. CXR showed possible LLE PNA, possible vascular congestion.
She has underlying dementia, oriented to self only. She has chronic ambulatory and swallow dysfunction due to prior CVA deficits. She utilizes a PEG for alternate nutritional support.
Physical Exam
-
Musculoskeletal: No Clubbing, No Cyanosis and No Edema
[2024-01-22] MEDS: VIMPAT 100 MG TUBE (09:21)
[2024-01-22] MEDS: ELIQUIS 5 MG TUBE (09:21)
[2024-01-22] MEDS: PREVACID 30 MG TUBE (09:21)
[2024-01-22] MEDS: FERROUS SULFATE ORAL LIQUID 300 MG TUBE (09:21)
[2024-01-22] MEDS: NORVASC 10 MG TUBE (09:22)
[2024-01-22] MEDS: COZAAR 100 MG TUBE (09:22)
[2024-01-22] MEDS: LOW STRENGTH ASPIRIN 81 MG TUBE (09:22)
--- NOTE | 2024-01-22 10:51 | W.PN.HOSP.TC ---
Today's Communication/Plan
-
Discharge planning today
Assessment / Plan
Assessment / Plan
Physical exam:
General: Chronically ill
HEENT: Normocephalic, Atraumatic and Moist Mucous Membranes
Respiratory: Clear to Auscultation; Negative Wheezes, Rales or Rhonchi
Cardiac: Regular Rhythm and S1/S2
GI: Soft, Nontender and Nondistended
Musculoskeletal: No Clubbing, No Cyanosis and No Edema
Neuro: Awake, Alert and Disoriented
Psych: Calm
A/P:
#Acute on chronic anemia of of CKD
#Hx iron deficiency anemia
-Hg was 6.7 on admit, now 7.8 after 1 unit PRBC. Today hemoglobin 9.7 after transfusion
-patient was admitted in December s/p EGD/[place] without source of bleeding found
-Eliquis was held during December admission and resumed on 01/05/2024
-Continue Prevacid 30 mg disintegrating tablet via G-tube
-Hematology consult appreciated
-Reached out to GI and they would prefer to see her outpatient.
EGD: Unremarkable without source of bleeding
Colonoscopy 12/27/2023: No source of bleeding multiple polypectomies proximal ascending colon, sigmoid colon removed with snare, internal hemorrhoids all benign neoplasm
-Hg with slight drift down and required transfusion with 1 more unit of blood today. Back on Eliquis.
-continue outpatient follow up with discussion capsule study
-Will request hematology eval as well for further advice
#ESRD on HD MOWEFR
Left IJ permacath
-s/p HD on 01/18
-continue HD outpatient MWF
Hyponatremia
-continue fluid removal with dialysis
-decrease FWF
#Dysphagia status post PEG tube
-All meds via PEG tube
-continue TF (decrease FWF)
#Paroxysmal A-fib
-On Eliquis 5 mg twice daily
#HTN�benign multidrug-resistant
-Continue Norvasc 10 mg, clonidine transdermal patch, hydralazine 50 mg every 8h, losartan 100 mg was increased recent admission
#Hx CVA with immobility, dysphagia
#Seizure disorder
hx EEG 01/04/24 no seizures,no mention of taking keppra
-Continue Vimpat 100 mg twice daily
#Dementia�severe
Keep head of bed raised to 30 degrees at all times
-May suction secretions
-Oriented to first and last name only
#CAD prior NSTEMI
Continue aspirin 81 mg daily, BP control,
#DM 2 with history of episodes of hypoglycemia in past
Accu-Cheks with SSI low
Lantus was discontinued on recent admission December
DVT prophylaxis
SCDs
CODE STATUS:
Full code
Anticipated Discharge: Today
Subjective/Interval History
-
Date of Service: January 22, 2024
Patient does not voice any complaints
Objective Data
-
Labs:
Laboratory Results
01/22/24
06:32
WBC 11.3 H
Hgb 9.7 L D
Hct 28.2 L
Plt Count 320
Sodium 129 L
Potassium 3.5
Chloride 95 L
Carbon Dioxide 31 H
BUN 31 H
Creatinine 2.4 H
Glucose 163 H
Calcium 8.5
Vital Signs:
Vital Signs
Temp Pulse Resp BP Pulse Ox
98.4 F 68 20 172/60 99
01/22/24 07:55 01/22/24 07:55 01/22/24 07:55 01/22/24 07:55 01/22/24 07:55
I&O
01/21/24 01/22/24 01/23/24
06:59 06:59 06:59
Intake Total 775 / 775 250 / 250
Balance 775 / 775 250 / 250
[2024-01-22 11:46] VITALS: BP 165/56
--- NOTE | 2024-01-22 12:35 | CM ---
Addendum entered by Elinor Cantor 01/22/24 15:05:
Left message for Anish [phone] at [facility] with transport time 1730/1800.
Addendum entered by Elinor Cantor 01/22/24 12:47:
Spoke with Spouse & explained IMM. Verbalized understanding
Original Note:
Patient to return to [facility] today.
Spoke to Anish at [facility].
Patient will require ambulance transport.
No auth required
PLAN: Discharge to LTC [facility]
Report# [phone]
--- NOTE | 2024-01-22 13:48 | W.DCSUMMARY ---
Discharge Summary
Discharge Data
Date of Admission: 01/18/24
Date of Discharge: 01/22/24
-
Pending Results: No
Hospital Course
Patient is 73 years old female history of end-stage renal disease on hemodialysis, dementia, A-fib on anticoagulation, dysphagia, seizure disorder, diabetes mellitus, CVA, CAD, presented to the hospital with recurrent anemia. Patient had a recent
GI workup including endoscopy and colonoscopy that did not reveal any acute abnormalities. Patient was treated with blood transfusions. Hematology consulted and she will follow-up with them as outpatient. Patient did not have any signs of active
bleeding at this time. We reached out to GI who will see her as outpatient for further recommendations. Otherwise, patient hemodynamically stable and latest hemoglobin 9.7. Nephrology saw her throughout this hospital stay and continue with her
hemodialysis as well. She will be discharged in stable condition today.
Discharge duration: 35 minutes
Discharge Plan
-
Patient Disposition: [facility]/SNF
Discharge Diagnosis/Procedures: Recurrent anemia. End-stage renal disease on hemodialysis. Dysphagia. Hyponatremia. Paroxysmal atrial fibrillation. Hypertension. Stroke. Severe dementia. History of coronary artery disease. History of
diabetes mellitus.
Diet: Low Cholesterol and Diabetic, Carb Controlled
Activity: As tolerated
Blood Work: Please PCP to order CBC, BMP within 1 week
Activity Restrictions/Additional Instructions:
Wound Care Instructions
Buttocks/sacrum: Clean gently with soap and water, Barrier cream or dry dressing( if appropriate) to buttocks change daily and prn soilage.
Heels: skin prep and Foam adhesives change q 3 days and prn soilage
L axilla: clean with soap and water, silicone foam change q 3 days.
Air mattress with turning schedule
offloading cushion when sitting
Referrals:
Earl Gloria I., [Family Provider] - in less than 1 week
Radha Mills MD [Active] - in two to three weeks
Frank Matthew MD [Active] - in two to four weeks
Joanne Costa MD [Active] - in one to two weeks (Anemia- concerns for gi etiology.)
Prescriptions:
Continued
atorvastatin [Lipitor] 20 mg Tablet
20 mg feeding tube HS
clonidine 0.1 mg/24 hr Patch Weekly
1 patch TRANSDERMAL TH
polyethylene glycol 3350 [Miralax] 17 gram Powder In Packet
17 g feeding tube DAILYPRN PRN (Reason: CONSTIPATION)
melatonin 3 mg Tablet
3 mg feeding tube HSPRN PRN (Reason: SLEEP)
amlodipine [Norvasc] 10 mg Tablet
10 mg feeding tube DAILY
bisacodyl [Dulcolax (bisacodyl)] 10 mg Suppository
10 mg [place] DAILYPRN PRN (Reason: if no bm aftr mom)
ferrous sulfate 300 mg (60 mg iron)/5 mL Liquid
300 mg feeding tube DAILY
aspirin 81 mg Tablet,Chewable
81 mg feeding tube DAILY
insulin lispro 100 unit/mL Insulin Pen
1 - 3 sliding scale dose SC AC
Rx Instructions:
151-200=1 UNITS, 201-250=2UNITS, 251-300=3UNITS
lacosamide [Vimpat] 10 mg/mL Solution
100 mg feeding tube BID
hydralazine 50 mg Tablet
50 mg feeding tube Q8 Qty: 0 0RF
losartan 100 mg Tablet
100 mg feeding tube DAILY Qty: 0 0RF
lansoprazole 30 mg tablet,disintegrat, delay rel
30 mg feeding tube DAILY Qty: 1 0RF
Eliquis 5 mg Tablet
5 mg feeding tube BID Qty: 1 0RF
Rx Instructions:
Resume 01/05/24PM
magnesium hydroxide [Milk of Magnesia] 400 mg/5 mL Suspension
30 ml FEEDING TUBE HSPRN PRN (Reason: if no bm in 3 days)
Discharge Orders:
Discharge Patient (As Directed); Ordered 01/22/24
Ordered By: Miki Torres
Discharge Date and Time
Discharge Date/Time: 01/22/24 17:43
Print Language: GREENLANDIC
--- NOTE | 2024-01-22 14:29 | CM ---
Ambulance transport forms on chart. i
--- NOTE | 2024-01-22 15:43 | W.PN.NEPH.PH ---
Today's Communication / Plan
-
HD tomorrow if still here
Assessment/Plan
-
Assessment:
ESRD on HD tunneled dialysis catheter
Anemia acute
HTN
Dementia
Plan:
HD tomorrow if still here
hb better post PRBC on HD 01/20
BP are high seem chronic could potentially increase hydralazine dose
likely d/c today
-
-
Date of Service: January 22, 2024
CC / HPI / ROS
-
Chief Complaint:
ESRD
History of Present Illness:
BP stable
tolerated HD yesterday
Hgb up to 9.7 after transfusion again on 01/20
Review of Systems:
no CP/SOB
Labs
-
Labs:
WBC 11.3 10^3/uL (4.8-10.8) H 01/22/24 06:32
RBC 3.18 10^6/uL (4.20-5.40) L 01/22/24 06:32
Hgb 9.7 g/dL (12.0-16.0) L D 01/22/24 06:32
Hct 28.2 % (37.0-47.0) L 01/22/24 06:32
Plt Count 320 10^3/uL (130-400) 01/22/24 06:32
Sodium 129 mmol/L (135-145) L 01/22/24 06:32
Potassium 3.5 mmol/L (3.5-5.1) 01/22/24 06:32
Chloride 95 mmol/L (98-107) L 01/22/24 06:32
Carbon Dioxide 31 mmol/L (22-30) H 01/22/24 06:32
BUN 31 mg/dl (7-17) H 01/22/24 06:32
Creatinine 2.4 mg/dL (0.6-1.0) H 01/22/24 06:32
eGFR 20.68 01/22/24 06:32
Glucose 163 mg/dl (70-99) H 01/22/24 06:32
Calcium 8.5 mg/dl (8.4-10.2) 01/22/24 06:32
Phosphorus 2.2 mg/dl (2.5-4.5) L 01/21/24 07:41
Albumin 2.8 g/dl (3.5-5.0) L 01/21/24 07:41
Physical Exam
-
Vital Signs:
Vital Signs
Temp Pulse Resp BP Pulse Ox
99.9 F 65 19 165/56 100
01/22/24 11:46 01/22/24 11:46 01/22/24 11:46 01/22/24 11:46 01/22/24 11:46
Cardiovascular:: Regular rate and rhythm
Respiratory:: Bilateral: CTA
Lung Excursion:: Normal
Abdomen:: Nontender and Soft
Extremity Edema:: None: Bilateral:
[place] Catheter: No
[2024-01-22 15:45] VITALS: BP 159/64
== END 2024-01-22 17:43 | DRG 811 ==
LOC: 4 WEST ACU 21:19
PROVIDERS: Clinical Nurse Specialist Family Health; Student in an Organized Health Care Education/Training Program; ADMITTING PHYSICIAN Hospitalist; ATTENDING PHYSICIAN Hospitalist; CONSULT PHYSICIAN Specialist; EMERGENCY PHYSICIAN Emergency Medicine; FAMILY PHYSICIAN Internal Medicine; OTHER PHYSICIAN Internal Medicine Hematology & Oncology
PROC: 30233N1 Transfusion of Nonautologous Red Blood Cells into Peripheral Vein, Percutaneous Approach (ICD-10-PCS; 2024-01-18)
PROC: 5A1D70Z Performance of Urinary Filtration, Intermittent, Less than 6 Hours Per Day (ICD-10-PCS; 2024-01-19)
DX: D50.0 Iron deficiency anemia secondary to blood loss (chronic) (principal); N18.6 End stage renal disease; I13.2 Hypertensive heart and chronic kidney disease with heart failure and with stage 5 chronic kidney disease, or end stage renal disease; I50.32 Chronic diastolic (congestive) heart failure; E87.1 Hypo-osmolality and hyponatremia; D63.1 Anemia in chronic kidney disease; E11.22 Type 2 diabetes mellitus with diabetic chronic kidney disease; Z99.2 Dependence on renal dialysis; F03.C0 Unspecified dementia, severe, without behavioral disturbance, psychotic disturbance, mood disturbance, and anxiety; I69.320 Aphasia following cerebral infarction; G40.909 Epilepsy, unspecified, not intractable, without status epilepticus; I69.391 Dysphagia following cerebral infarction; R13.10 Dysphagia, unspecified; I25.10 Atherosclerotic heart disease of native coronary artery without angina pectoris; I48.0 Paroxysmal atrial fibrillation; I1A.0 Resistant hypertension; I25.2 Old myocardial infarction; K59.00 Constipation, unspecified; K64.8 Other hemorrhoids; R53.1 Weakness; R41.89 Other symptoms and signs involving cognitive functions and awareness; Z79.01 Long term (current) use of anticoagulants; Z79.4 Long term (current) use of insulin; Z79.82 Long term (current) use of aspirin; Z79.899 Other long term (current) drug therapy; Z86.718 Personal history of other venous thrombosis and embolism; Z88.5 Allergy status to narcotic agent; Z93.1 Gastrostomy status
CPT/HCPCS: 36430; 71046; 80048; 80053; 80069; 82728; 83540; 83550; 83735; 84100; 85025; 86850; 86900; 86901; 86920; 87070; 96374; 99285; G0257; P9016; P9047; Q5106

== ENCOUNTER 2024-02-18 13:36 | Inpatient (IN) | payer MEDICARE, BC, SELFPAY ==
[2024-02-18] VITALS (51 sets, daily range): BP systolic 93–152; BP diastolic 31–76; BMI 27.5; BMI 24.4
--- NOTE | 2024-02-18 10:14 | ED.GENMED ---
History of Present Illness
General
Chief Complaint: Abnormal Lab Value
Source: patient and ambulance crew
Exam Limitations: clinical condition
Time Seen by Provider: 02/18/24 10:12
History of Present Illness
History of Present Illness:
See MDM
Past History
Past History
ED Past Medical History: Arrthythmia (Atrial fibrillation), NIDDM, Renal failure, Seizures and Other (Dementia, dysphagia, G-tube, anemia)
Phy Exam
Physical Exam
Physical Exam:
See MDM
Course
Orders/Labs/Results
Orders:
Orders
02/18/24 10:12
Urinalysis Reflex To Culture Urgent
CR Chest Portable - 1 View Urgent
Comment:
Reason For Exam: weak, altered, elevated WBC
Reason Study Needs to be Portable: Patient Unstable
02/18/24 10:20
Pelvis, 1 or 2 Views CR [CR Pelvis - 1 Or 2 Views ] Urgent
Comment:
Reason For Exam: sacral wound
02/18/24 11:18
COVID-19 Antigen Urgent
Source: Nasal Swab
Complete Blood Count/With Diff Urgent
Comprehensive Metabolic Panel Urgent
Lactic Acid Q4H
Comment: CANCEL 2nd LACTIC ACID IF 1st LACTIC ACID IS LESS THAN 2
Manual Differential Urgent
02/18/24 12:06
Blood Bank Products [* Blood Bank Products] Urgent
's Orders: Elliot Macias DO
Blood Bank Products: *Packed RBC Leuko(PRBC's)
Quantity: 2
Transfuse Today: Yes
Reason: Anemia
Piperacillin/Tazo 3.375 Gram [Zosyn] 3.375 gram in 50 ml IV NOW
02/18/24 12:20
PTT Urgent
Prothrombin Time Urgent
Pantoprazole 80 mg/ 100 mL 8 mg/hr NOW X 1 BAG Pantoprazole 80 mg/100 ml Nss [Protonix] 80 mg in 100 ml IV NOW
Pantoprazole [Protonix IV] 80 mg IV NOW STA
02/18/24 12:21
Type+Screen Urgent
IV Insert/Care/Rem.- Treatment PRN
02/18/24 14:15
Lactic Acid Q4H
Comment: CANCEL 2nd LACTIC ACID IF 1st LACTIC ACID IS LESS THAN 2
Abnormal Lab Results
02/18/24
11:18
WBC 48.2 H* 10^3/uL
(4.8-10.8)
RBC 1.98 L 10^6/uL
(4.20-5.40)
Hgb 5.8 L* g/dL
(12.0-16.0)
Hct 16.0 L* %
(37.0-47.0)
MCV 80.8 L fL
(81.0-99.0)
RDW 14.8 H %
(11.5-14.5)
Plt Count 472 H 10^3/uL
(130-400)
Abs Neuts (Manual) 42.4 H 10^3/uL
(1.4-6.5)
Segmented Neutrophils 85 H %
(42-75)
Lymphocytes (Manual) 2 L %
(20-51)
Sodium 129 L mmol/L
(135-145)
Potassium 3.0 L mmol/L
(3.5-5.1)
Chloride 95 L mmol/L
(98-107)
Carbon Dioxide 16 L mmol/L
(22-30)
BUN 133 H* mg/dl
(7-17)
Creatinine 3.8 H mg/dL
(0.6-1.0)
Glucose 392 H mg/dl
(70-99)
AST 115 H U/L
(14-36)
ALT 97 H U/L
(0-35)
Alkaline Phosphatase 333 H U/L
(38-126)
Total Protein 5.4 L g/dl
(6.3-8.2)
Albumin 2.4 L g/dl
(3.5-5.0)
02/18/24 11:18
02/18/24 11:18
Vital Signs
Initial and Last Documented VS:
Initial Vital Signs
Temp Pulse Resp BP Pulse Ox
96.7 F L 61 18 122/37 100
02/18/24 10:13 02/18/24 10:13 02/18/24 10:13 02/18/24 10:13 02/18/24 10:13
Last Documented Vital Signs
Temp Pulse Resp BP Pulse Ox
96.7 F L 60 15 122/37 99
02/18/24 10:13 02/18/24 10:30 02/18/24 10:30 02/18/24 10:13 02/18/24 10:30
MDM/Problems Addressed
Differential Diagnosis Includes:
HPI and MDM Narrative:
73-year-old female presenting for evaluation of leukocytosis. She presents with lab work that indicates white blood cell count over the past few days in the low 30s. Patient afebrile. Per EMS, she is at her baseline mental status. She is
nonverbal. She does wake up to verbal stimuli. Patient has left chest catheter dialysis port and PEG tube. Both are clean and intact. Lungs appear clear. No obvious cellulitis on exam. Neck is supple. Will search for infectious cause for
leukocytosis
Physical exam
General: Weak, fatigued, sleepy
HEENT: protecting airway
Neck: supple
CV: No evidence of cyanosis
Resp: No accessory muscle use. Lungs appear clear
Abd: Non-distended and nontender
Extremities: No deformities
Neuro: alert
Psych: flat affect
Skin: no cellulitic changes around PEG or dialysis catheter. Sacral wound noted with malodorous smell
Problems Addressed including Acute and Chronic Conditions affecting care:
1. Altered mental status and leukocytosis
Acuity: acute
Prognosis: stable
Details: Will look for cause of leukocytosis such as infection. Will obtain chest x-ray, COVID testing and lactic acid.
2. Sacral wound
Acuity: acute
Prognosis: unstable
Details: Likely the cause of the leukocytosis. Will obtain x-ray looking for any evidence of osteomyelitis
3. Anemia
Acuity: acute
Prognosis: unstable
Details: Will transfuse 2 units of blood
Updates
Patient found to be anemic. Hemoglobin is 5.8. She has had a negative workup last month for anemia. However, rectal exam was performed with nurse director of financial planning Yasmeen. The stool is very dark and guaiac positive. Will start Protonix drip. Patient
did shake her head yes when I indicated that she needs a blood transfusion. She is nonverbal. Patient unable to sign the transfusion consent. I did call the 2 numbers on file for the . That number did not work. I also called the number
for her daughter Marcela. She did not picker / packer but I left a voicemail
At this point, the transfusion appears to be emergent. Although she did not give written consent, she was consented last admission and she did shake her head yes today when asked to give blood.
Differential Diagnosis (but not limited to): Pneumonia, UTI
Testing considered: CT head
Drug therapy (if applicable): OTC meds, please see d/c instruction regarding Rx drugs
Amount and/or Complexity of Data Reviewed
Clinical info obtained from: EMS stating baseline mental status
External data reviewed: Recent admission last month for anemia with a negative workup. She did require blood transfusions
Labs I independently reviewed (but not limited to): Anemia, leukocytosis
Radiology: X-ray independently reviewed: Chest x-ray clear
Pulse Ox: not hypoxic
EKG independently reviewed: N/A
Rock Crusher: N/A
Critical Care: The high probability of a clinically significant, sudden or life threatening deterioration of the gastrointestinal system(s) required my full and direct attention, intervention and personal management. The aggregate critical care time
was 35 minutes. This time is in addition to time spent performing reported procedures but includes the following:
[x] Data Review and interpretation
[x] Patient assessment and monitoring of vital signs
[x] Documentation
[x] Medication orders and management
Risk of Complication:
Social Determinants of health: Good social support
Discussed with other providers: Hospitalist, GI
Escalation of Care includes Admit/Obs: Given the sacral decubitus ulcer and symptomatic anemia, will admit for antibiotics and blood transfusion
Occasional wrong word or 'sound a like' substitutions may have occurred due to the inherent limitations of voice recognition software. Read the chart carefully and recognize, using context, where substitutions have occurred.
*Critical Care Note
Total Time (30-74mins, 75-104mins- exclusive of procedures): 35 min
ED Attending Note
-
Portions of this chart may have been created with voice recognition software.� Occasional wrong word or��sound alike� substitutions may have occurred due to the inherent limitations of voice recognition software.
Discharge Plan
Departure
Patient Disposition: Admit
Date of Disposition: 02/18/24
Time of Disposition: 12:32
Admit to: IMU
Presentation/result/management discussed w/ accepting MD/DO: Hospitalist
Discharge Problem:
UGIB (upper gastrointestinal bleed), Sacral decubitus ulcer
Prescriptions:
No Action
atorvastatin [Lipitor] 20 mg Tablet
20 mg feeding tube HS
clonidine 0.1 mg/24 hr Patch Weekly
1 patch TRANSDERMAL TH
polyethylene glycol 3350 [Miralax] 17 gram Powder In Packet
17 g feeding tube DAILYPRN PRN (Reason: CONSTIPATION)
melatonin 3 mg Tablet
3 mg feeding tube HSPRN PRN (Reason: SLEEP)
amlodipine [Norvasc] 10 mg Tablet
10 mg feeding tube DAILY
bisacodyl [Dulcolax (bisacodyl)] 10 mg Suppository
10 mg UT DAILYPRN PRN (Reason: if no bm aftr mom)
ferrous sulfate 300 mg (60 mg iron)/5 mL Liquid
300 mg feeding tube DAILY
aspirin 81 mg Tablet,Chewable
81 mg feeding tube DAILY
insulin lispro 100 unit/mL Insulin Pen
1 - 3 sliding scale dose SC AC
Rx Instructions:
151-200=1 UNITS, 201-250=2UNITS, 251-300=3UNITS
lacosamide [Vimpat] 10 mg/mL Solution
100 mg feeding tube BID
hydralazine 50 mg Tablet
50 mg feeding tube Q8 Qty: 0 0RF
losartan 100 mg Tablet
100 mg feeding tube DAILY Qty: 0 0RF
lansoprazole 30 mg tablet,disintegrat, delay rel
30 mg feeding tube DAILY Qty: 1 0RF
Eliquis 5 mg Tablet
5 mg feeding tube BID Qty: 1 0RF
Rx Instructions:
Resume 01/04/PM
magnesium hydroxide [Milk of Magnesia] 400 mg/5 mL Suspension
30 ml FEEDING TUBE HSPRN PRN (Reason: if no bm in 3 days)
Referrals:
Earl Gloria I., DO [Family Provider] -
Interventions
Interventions:
*Risk Screen - Suicide Last Done: 02/18/24 10:13
*General Assessment Last Done: 02/18/24 10:13
*Neglect/Abuse Screening Last Done: 02/18/24 10:13
*ED COVID-19 Vaccine History Last Done: 02/18/24 10:30
Discharge Date and Time
Print Language: IRAQI
[2024-02-18 11:39] LABS: Hemoglobin 5.8 g/dL (12.0-16.0); Mean Corp Hgb Conc. 36.3 g/dL (33.0-37.0); Mean Corpuscular Hgb 29.3 pg (27.0-31.0); Mean Corpuscular Volume 80.8 fL (81.0-99.0); Mean Platelet Volume 9.4 fL (7.4-10.4); Platelet Count 472 10^3/uL (130-400); Red Blood Cell Count 1.98 10^6/uL (4.20-5.40); Red Cell Dist. Width 14.8 % (11.5-14.5); White Blood Cell Count 48.2 10^3/uL (4.8-10.8)
[2024-02-18 11:48] LABS: ALT (SGPT) 97 U/L (0-35); AST (SGOT) 115 U/L (14-36); Albumin 2.4 g/dl (3.5-5.0); Alkaline Phosphatase 333 U/L (38-126); Calcium 9.5 mg/dl (8.4-10.2); Carbon Dioxide 16 mmol/L (22-30); Chloride 95 mmol/L (98-107); Estimated Creatinine Clearance 12 ml/min; Glucose 392 mg/dl (70-99); Sodium 129 mmol/L (135-145); Total Bilirubin 0.6 mg/dl (0.2-1.3); Total Protein 5.4 g/dl (6.3-8.2); eGFR 11.91
[2024-02-18 11:49] LABS: COVID-19 Antigen Negative (Negative)
[2024-02-18 11:59] LABS: Absolute Neutrophils -Man Diff 42.4 10^3/uL (1.4-6.5); Band Neutrophils 3 % (0-3); Lymphocytes 2 % (20-51); Monocytes 2 % (2-9); Segmented Neutrophils 85 % (42-75)
[2024-02-18 12:00] LABS: Metamyelocytes 5 % (-)
[2024-02-18 12:01] LABS: Myelocytes 3 % (-)
[2024-02-18 12:02] LABS: Acanthocytes Slight; Anisocytosis 2+; Hypochromasia 2+; Normal RBC Morphology No; Ovalocytes Slight; Platelets Checked Yes; Poikilocytosis Slight
[2024-02-18 12:03] LABS: Total Cells Counted 100
[2024-02-18 12:17] LABS: Blood Urea Nitrogen 133 mg/dl (7-17)
[2024-02-18] MEDS: PROTONIX IV 80 MG IV (12:42)
[2024-02-18] MEDS: ZOSYN 50 IV ×2 (12:42→20:55)
[2024-02-18] MEDS: PROTONIX 100 IV ×2 (12:42→22:32)
--- NOTE | 2024-02-18 12:46 | HPS.HSE ---
Family Physician
-
Family Physician: Earl Gloria
Chief Complaint
-
elevated wbc
infected sacral wound
History of Present Illness
73 year old with PMH for sacral wound, atrial fib, demential dysphagia, G-tube, anemia, ESRD on dialysis on M,W,F, CVA sent to us from [facility] with infected wound and elevated wbc. patient is non verbal. ROS is limited.
on arrival noted to elevated wbc with infected, low hgb with heme positive. admitting for further management. patient ordered two units of blood. admitting for further management.
Medical History
Past Medical History
Past Medical History: Reports Other
Additional Past Medical History:
Iron deficiency anemia
GERD
Seizures
CVA
Chronic diastolic CHF
End-stage renal disease
Type 2 diabetes
Hyperlipidemia
Dementia
Hyponatremia
PAF
Essential hypertension
Past Surgical History: Reports Other
Social History
Unable to obtain full social history at this time due to: Dementia
Family History
Family History: Not pertinent
Allergies / Home Medications
Allergies reflects when Allergies were last updated in [email or web address].
Home Medications with original date entered in [email or web address]
Allergy/Medication List:
Allergies
Allergy/AdvReac Type Severity Reaction Status Date / Time
adhesive tape Allergy Unknown Verified 02/18/24 10:12
codeine Allergy Unknown Verified 02/18/24 10:12
oxycodone Allergy Unknown Verified 02/18/24 10:12
tramadol Allergy Unknown Verified 02/18/24 10:12
Home Medications
amlodipine 10 mg tablet (Norvasc) 10 mg feeding tube DAILY Blood Pressure 12/27/23
aspirin 81 mg chewable tablet 81 mg feeding tube DAILY Blood Clot Prevention/Tx 12/27/23
atorvastatin 20 mg tablet (Lipitor) 20 mg feeding tube HS High Cholesterol 12/27/23
bisacodyl 10 mg rectal suppository (Dulcolax (bisacodyl)) 10 mg AR DAILYPRN PRN if no bm aftr mom 12/27/23
clonidine 0.1 mg/24 hr weekly transdermal patch 1 patch transdermal TH Blood Pressure 12/27/23
ferrous sulfate 300 mg (60 mg iron)/5 mL oral liquid 300 mg feeding tube DAILY Supplement 12/27/23
insulin lispro 100 unit/mL subcutaneous pen 1 - 3 sliding scale dose SC AC Diabetes 12/27/23
lacosamide 10 mg/mL oral solution (Vimpat) 100 mg feeding tube BID Seizures 12/27/23
melatonin 3 mg tablet 3 mg feeding tube HSPRN PRN SLEEP 12/27/23
polyethylene glycol 3350 17 gram oral powder packet (Miralax) 17 g feeding tube DAILYPRN PRN CONSTIPATION 12/27/23
apixaban 5 mg tablet (Eliquis) 5 mg feeding tube BID Blood Clot Prevention/Tx #1 tab 01/03/24
hydralazine 50 mg tablet 50 mg feeding tube Q8 #0 tabs 01/03/24
lansoprazole 30 mg delayed release,disintegrating tablet 30 mg feeding tube DAILY #1 tab 01/03/24
losartan 100 mg tablet 100 mg feeding tube DAILY #0 tabs 01/03/24
magnesium hydroxide 400 mg/5 mL oral suspension (Milk of Magnesia) 30 ml feeding tube HSPRN PRN if no bm in 3 days 01/18/24
Review of Systems
-
Unable to obtain full review of systems at this time due to: Acuity
Physical Exam
Vital Signs
Vital Signs
Temp Pulse Resp BP Pulse Ox
96.7 F L 60 15 122/37 99
02/18/24 10:13 02/18/24 10:30 02/18/24 10:30 02/18/24 10:13 02/18/24 10:30
Physical Exam
General: Well Developed, Well Nourished and No Apparent Distress
HEENT: NormoCephalic, Moist mucous membranes and Atraumatic
Respiratory: Clear
Cardiac: S1/S2 and Regular Rhythm; No Murmur or Rub
GI: Soft, Non Tender, Non Distended and Normal Bowel Sounds; No Organomegaly
Rectal: Deferred by Provider
Musculoskeletal: No Clubbing, No Cyanosis and No Edema
Skin: Rash and Decubitus Ulcers (sacral)
Neuro: Nonfocal/grossly intact
Laboratory Results
-
02/18/24 11:18
02/18/24 11:18
Laboratory Results
Lactic Acid 2.0 mmol/L (0.7-2.0) 02/18/24 11:18
Total Bilirubin 0.6 mg/dl (0.2-1.3) 02/18/24 11:18
AST 115 U/L (14-36) H 02/18/24 11:18
ALT 97 U/L (0-35) H 02/18/24 11:18
Alkaline Phosphatase 333 U/L (38-126) H 02/18/24 11:18
Data Reviewed
-
Diagnostic Radiology: Report Reviewed by me
Lab Data: Labs Reviewed by me
Impression/Plan
-
# Acute on chronic anemia likely from upper GI bleed on anticoagulants
-Hold Eliquis
-Hemoglobin 5.8
-Corrected this with positive
-PPI drip continued
-keep NPO
-Patient is consented for 2 units of PRBCs
-GI consulted
-EGD: Unremarkable without source of bleeding
Colonoscopy 12/27/2023: No source of bleeding multiple polypectomies proximal ascending colon, sigmoid colon removed with snare, internal hemorrhoids all benign neoplasm
# Likely infected sacral decub
-WBC 48.2
-iv Zosyn,vanco continued
-wound care consulted
# History of CVA
-asa held
# Paroxysmal A-fib
-HR controlled
-obtain EKG
-hold eliquis
# end-stage renal disease on dialysis
# Hyponatremia/hypokalemia/metabolic acidosis
-Sodium 129, K3.0, CO2 16
-nephrology consulted
# Type 2 diabetes with hyperglycemia
-Blood sugar elevated in 300s
-sliding scale continued
# Elevated transaminase
-AST 115, ALT 97, ALK 333
-hold statin
#Dysphagia status post PEG tube
-All meds via PEG tube
-TF held due to GI bleed
-nutrition consult
HTN�benign multidrug-resistant
-Continue Norvasc 10 mg, clonidine transdermal patch, hydralazine 50 mg every 8h, losartan 100 mg
-CTM
#Hx CVA with immobility, dysphagia
#Seizure disorder
- hx EEG 01/04/24 no seizures
-Continue Vimpat 100 mg twice daily
#Dementia�severe
Keep head of bed raised to 30 degrees at all times
-May suction secretions
#CAD prior NSTEMI,
#DVT prophylaxis
SCDs
#CODE STATUS:
-Full code
--- NOTE | 2024-02-18 12:53 | CON.GI ---
Addendum entered and electronically signed by Aimee Rodriguez DO 02/18/24 15:22:
The patient was seen and examined by me independently in collaboration with the nurse practitioner.
Past medical history/social history/medications/allergies/family history reviewed.
Lab data and imaging data reviewed.
Madeline Nettles is a 73 y.o. female w/ pmhx CVA with resultant dysphagia s/p PEG, ESRD, on HD, chronic anemia on iron, DVT, PAF on eliquis, CAD s/p PCI, HTN, DM, sacral decub, seizure d/o admitted from nursing facility with abnormal labs,
significant leukocytosis and anemia with melena on rectal. Patient nonverbal, uanble to partcipiate in evaluation. PEG lavaged, TFs returned. She is hemodynamically stable. Of note, recent EGD/Colonoscopy in December for anemia, Normal EGD, multiple
colon polyps and hemorrhoids, poor prep.
WBC 482, Hgb 5.8, MCV 80.8, Plt 472, INR 18.8
(baseline Hgb 7-8); Hgb 9.7 on discharge 01/22/24
Na 129, K 3.0, Cl 95, CO2 16, BUN 133/Cr. 3.8, Glucose 392, AST 115, ALT 97, Alk phos 333, Tbili 0.6 (LFTs previously normal)
Labs 02/14/24: WBC 33.9, Hgb 7.8, MCV 87, Plt 506, Na 128, BUN 44, Cr. 2.27
Labs 02/15/24: WBC 32.6, Hgb 7.4, Plt 477
Significantly elevated BUN with melena on rectal suspicious for upper GI source, PEG lavaged with tube feeds returned. I spoke to patient's daughter, Marcela extensively regarding her presentation and steps moving forward as well as goals of care.
She reports that her mother was very clear that she wanted to remain full code. She had many questions regarding her recent hospitalization at [facility], workup determined that she might have metastatic lung cancer, she requested
these results and was unclear why nobody here knew about this and felt we needed to continue this workup. I do not have any knowledge of this prior workup nor documents to support this and she did not know the details just that the hospitalization
occurred in November. She has not seen any doctors as an outpatient including oncology following this possible finding. I expressed that we need to focus on her acute issues to complete workup for infectious source given her significant leukocytosis
as well as concerns for active GI bleeding. She would like to move forward with enteroscopy tomorrow, if no source of GI bleeding found I notified her that we would need to transfer her to a tertiary care center for an inpatient, endoscopically
placed video capsule endoscopy for evaluation of the distal small bowel.
Additionally, she has increased LFTs-- check abdominal US. Though, given purulence in sacral wound, that is likely the source of her infection.
Original Note:
Consultation
-
Date/Time Consultation Requested: 02/18/24 1230
Date/Time Consultation Performed: 02/18/24 1250
Requesting Provider: Elliot Macias DO
Performing Provider: BHUPINDER Alexander
Reason for Consultation: anemia
Medical History
Chief Complaint / HPI
Chief Complaint: abnormal labs
History of Present Illness:
73 y/o female with PMH of CVA with aphasia, dysphagia with PEG tube, ESRD chronic anemia on oral iron, DVT/PAF on eliquis 5 mg, CAD with prior STEMI , HTN, DM, sacral decub, and Seizure disorder who presents to the ER with decreased Hgb. On
admission noted with hbg 5.8 with BUN 133, but also marked elevated WBC's up to 48,200. Pt was admitted in December with anemia. EGD at that time with normal esophagus and peg in stomach. colon with TA polyps and hemorrhoids. Pt with dark heme +
stool in ER. Pt is non verbal unable to give review of systems.
Past Medical History
Past Medical History: Arrhythmias (afib ), CAD, CVA, HTN, NIDDM, [place], Renal Failure (on HD), Seizures and Other (dementia, dysphagia, G tube, anemia, DVT on eliquis, sacral decub)
Past Surgical History: Other (PEG tube )
Social History
Tobacco: Other (unable to obtain)
Alcohol: Other (unable to obtain)
Drug: Other (unable to obtain)
Living: Shelter
Family History
Family History: Unable to Obtain
Allergies / Home Medications
Allergy/AdvReac Type Severity Reaction Status Date / Time
adhesive tape Allergy Unknown Verified 02/18/24 10:12
codeine Allergy Unknown Verified 02/18/24 10:12
oxycodone Allergy Unknown Verified 02/18/24 10:12
tramadol Allergy Unknown Verified 02/18/24 10:12
�Medication �Instructions �Recorded
amlodipine 10 mg tablet (Norvasc) 10 mg feeding tube DAILY Blood 12/27/23
Pressure
aspirin 81 mg chewable tablet 81 mg feeding tube DAILY Blood 12/27/23
Clot Prevention/Tx
atorvastatin 20 mg tablet (Lipitor) 20 mg feeding tube HS High 12/27/23
Cholesterol
bisacodyl 10 mg rectal suppository 10 mg GA DAILYPRN PRN if no bm 12/27/23
(Dulcolax (bisacodyl)) aftr mom
clonidine 0.1 mg/24 hr weekly 1 patch transdermal TH Blood 12/27/23
transdermal patch Pressure
ferrous sulfate 300 mg (60 mg 300 mg feeding tube DAILY 12/27/23
iron)/5 mL oral liquid Supplement
insulin lispro 100 unit/mL 1 - 3 sliding scale dose SC AC 12/27/23
subcutaneous pen Diabetes
lacosamide 10 mg/mL oral solution 100 mg feeding tube BID Seizures 12/27/23
(Vimpat)
melatonin 3 mg tablet 3 mg feeding tube HSPRN PRN SLEEP 12/27/23
polyethylene glycol 3350 17 gram 17 g feeding tube DAILYPRN PRN 12/27/23
oral powder packet (Miralax) CONSTIPATION
apixaban 5 mg tablet (Eliquis) 5 mg feeding tube BID Blood Clot 01/03/24
Prevention/Tx #1 tab
hydralazine 50 mg tablet 50 mg feeding tube Q8 #0 tabs 01/03/24
lansoprazole 30 mg delayed 30 mg feeding tube DAILY #1 tab 01/03/24
release,disintegrating tablet
losartan 100 mg tablet 100 mg feeding tube DAILY #0 tabs 01/03/24
magnesium hydroxide 400 mg/5 mL 30 ml feeding tube HSPRN PRN if no 01/18/24
oral suspension (Milk of Magnesia) bm in 3 days
Review of Systems
-
Unable to obtain full review of systems at this time due to: Patient Non Verbal
History Source: Other (chart/nursing staff )
Abdomen/GI: Reports Other (dark stool per ER staff )
Neurological: Reports Other (non verbal )
Vital Signs
Temp Pulse Resp BP Pulse Ox
96.7 F L 60 15 122/37 99
02/18/24 10:13 02/18/24 10:30 02/18/24 10:30 02/18/24 10:13 02/18/24 10:30
Physical Exam
Exam
General: Other (chronically ill appearing, non verbal on exam )
HEENT: Normocephalic, Anicteric and Moist Mucous Membranes
Respiratory: Clear
Cardiac: Regular Rhythm
GI: Soft, Non Tender, Non Distended and Other (peg intact with good placement. Irrigation some return of tube feeds )
Rectal: Hem Positive (dark in ER)
Musculoskeletal: No Clubbing and No Cyanosis
Skin: Warm and Dry
Neuro: Other (non verbal minimal eye opening to stimuli)
Psych: Calm
Results
WBC 48.2 10^3/uL (4.8-10.8) H* 02/18/24 11:18
Hgb 5.8 g/dL (12.0-16.0) L* 02/18/24 11:18
Hct 16.0 % (37.0-47.0) L* 02/18/24 11:18
MCV 80.8 fL (81.0-99.0) L 02/18/24 11:18
Plt Count 472 10^3/uL (130-400) H 02/18/24 11:18
Sodium 129 mmol/L (135-145) L 02/18/24 11:18
Potassium 3.0 mmol/L (3.5-5.1) L 02/18/24 11:18
Chloride 95 mmol/L (98-107) L 02/18/24 11:18
Carbon Dioxide 16 mmol/L (22-30) L 02/18/24 11:18
BUN 133 mg/dl (7-17) H* 02/18/24 11:18
Creatinine 3.8 mg/dL (0.6-1.0) H 02/18/24 11:18
Calcium 9.5 mg/dl (8.4-10.2) 02/18/24 11:18
Total Bilirubin 0.6 mg/dl (0.2-1.3) 02/18/24 11:18
AST 115 U/L (14-36) H 02/18/24 11:18
ALT 97 U/L (0-35) H 02/18/24 11:18
Alkaline Phosphatase 333 U/L (38-126) H 02/18/24 11:18
Diagnostic Image Results:
Prior GI Procedures:
12/2023- EGD don[place]
The esophagus was normal.
The PEG was found in the gastric body.
The examined duodenum was normal.
colon 12/2023 [place]
- Preparation of the colon was inadequate.
- The examined portion of the ileum was normal.
- One 18 mm polyp in the proximal ascending colon,
removed with a hot snare and removed piecemeal using a
cold snare. Resected and retrieved. Clip was placed.
Clip ground service equipment mechanic: [employer].
- One 3 mm polyp in the ascending colon, removed with
a hot snare. Resected and retrieved.
- One 10 mm polyp in the sigmoid colon, removed with a
hot snare. Complete resection. Polyp tissue not
retrieved. Clip was placed. Clip ground service equipment mechanic: [employer]
PLUQ.
- Stool in the entire examined colon. No bleeding
- Internal hemorrhoids.
bx TA polyps
Assessment / Plan
-
73 y/o female with PMH of CVA with aphasia, dysphagia with PEG tube, ESRD chronic anemia on oral iron, DVT/PAF on eliquis 5 mg, CAD with prior STEMI , HTN, DM, sacral decub, and Seizure disorder who presents to the ER with decreased Hgb. On
admission noted with hbg 5.8 with BUN up to 133 but also marked elevated WBC's up to 48,200. Pt was admitted in December with anemia. EGD at that time with normal esophagus and peg in stomach. colon with TA polyps and hemorrhoids. Pt with dark heme
+ stool in ER.
-anemia with hx chronic anemia
-marked elevated BUN
-heme + stools
-marked leukocytosis
-DVT/PAF on Eliquis
-chronic peg
other medical problems:
-CVA with chronic aphasia
-ESRD on HD
-CAD with prior STEMI
-HTN
-DM
-sacral decub
-seizure d/o
PLAN:
Etiology of anemia multifactorial with heme + stool and BUN elevation and CKD
Pt currently with marked leukocytosis-- work up per medical team
cont IV abx
peg irrigation with return of tube feeds no blood on return
cont PPI gtt
monitor hgb and stool record
agree with transfusion as ordered in ER
recent EGD and colon completed in December
if signs of aggressive bleeding will need to review with family for work up as recently completed EGD/colon-- enteroscopy vs SB capsule-- if capsule needed would need to be endoscopically placed with hx dysphagia and chronic peg
-
-
-
Thank you for consultation and allowing me to participate in the patient's care. Please call the commercial construction project manager GI physician during the after hours with any questions or concerns.
[2024-02-18 13:19] LABS: INR 1.59; PT 18.8 Sec (11.4-14.6)
[2024-02-18 13:20] LABS: APTT 35.1 Sec (23.4-35.0)
--- NOTE | 2024-02-18 13:34 | W.PN.UPDATE ---
Addendum entered and electronically signed by Ritesh Gannon MD 02/18/24 16:29:
Wound culture ordered. Wound care recommended surgical consult for stage IV ulcer for concern for deep infection.
Original Note:
Update Note
Progress Note Update
This is an addendum to the H&P written by Roxana Gonzales on 02/18/2024. Patient seen and examined independently with [facility].
73-year-old female past medical history of ESRD on hemodialysis Sunday, Sunday, Sunday, severe dementia, paroxysmal atrial fibrillation on Eliquis, CVA with dysphagia with PEG tube, seizure disorder, diabetes, CAD, hypertension presenting for
infected sacral wound and elevated white blood cell count. On examination sacral wound appears grossly infected with drainage of foul-smelling discharge. Does not appear deep.
Pelvic x-ray unremarkable. Vancomycin/Zosyn. Wound care consulted.
Upon arrival lab work showed hemoglobin of 5.8. Rectal exam revealed heme positive black stool. 2 units of blood transfusion. NPO. Hold aspirin and Eliquis. Protonix drip. GI consulted. Dietary consulted.
Nephrology consulted for hemodialysis since she is due for dialysis today.
Hyperglycemia secondary to infection. Insulin sliding scale.
Continue to monitor transaminitis. Hold statin.
[2024-02-18 14:27] LABS: Iron 59 ug/dl (37-170)
[2024-02-18 14:36] LABS: Percent Saturation 49 % (20-50); Total Iron Binding Capacity 119 ug/dl (265-497)
--- NOTE | 2024-02-18 15:54 | WOUNDNOTE ---
SACRUM AND L POSTERIOR THIGH/ISCHIUM
--- NOTE | 2024-02-18 15:54 | WOUNDNOTE ---
L POSTERIOR THIGH/ISCHIUM
--- NOTE | 2024-02-18 16:00 | WOUNDNOTE ---
FABIENNE RN note: Patient admitted with upper GI bleed, from [facility].
See H&P for complete history.
PMH: Dementia, seizures, RF with dialysis, A fib. CHF,DVT, dysphagia-Feeding tube, sacral, L ischium and ear PI's.
Wound Location and type/assessment: Patient known to service, admitted with: Sacral unstageable PI suspect stage 4, eschar gold, soft and boggy with a foul odor. L posterior thigh/ischium with stage 2 vs 3 PI. B/L ear rims with stage 2 PI's. Heels
with very dry skin and few brown spots, suspect abrasions vs true PI. Has feeding tube.
Appetite: NPO, TF with Nepro.
Pressure redistribution devices in place: On Air mattress, Pillow placed under calves.
Plan: Foam adhesives applied to heels. silicone foam to L posterior thigh. Xeroform abd pads and silicone tape applied to sacrum, will order Rajesh's wtd to start this evening. Nurse Pineda obtained wound cultures will place in order once Dr. Gibbs
approves of the above. Recommended surgical consult. Will confirm orders with hospitalist and updated nurse. Updated care plan and will follow as needed.
Note to case management of equipment requested for discharge: Air mattress
--- NOTE | 2024-02-18 16:00 | W.CON.NEPH ---
Consultation
-
Date/Time Consultation Requested: 02/18/24 1312
Date/Time Consultation Performed: 02/18/24 1545
Requesting Provider: Ritesh Perez
Performing Provider: Aggie Chavira
Reason for Consultation: ESRD
Medical History
-
Chief Complaint: Decub wound infection
History of Present Illness:
This is a 73-year-old female with end-stage renal disease on hemodialysis at [facility] Sunday, anemia secondary to chronic disease, DVT on anticoagulation, paroxysmal atrial fibrillation, DM, hypertension on a multidrug regimen
om losartan, hydralazine, Amlodipine, clonidine patch, seizures controlled with Vimpat, dysphagia with PEG tube, CAD with prior NSTEMI on ASA, statin, GERD on PPI, CVA, also reported ?history of lung cancer who presents to the emergency department
from [facility] for suspected Decub wound infection. She also noted to have anemia hb 5.8 with significant leucocytosis WBC of 48k, jeovany on rectal exam. NO reported fever. pt is does not communicate baseline and history is limited. Most of the
history obtained through chart. Her las HD was Sunday and missed today hence nephrology consulted. She is plan to have 2 units of PRBC. Her BUN is 133, BG 392, na 129, bicarb 16, k 3. Her BPs are stable.
Past Medical History
ESRD on HD [facility]
left Chest wall catheter
CAD with NSTEMI
Anemia of chronic disease
DVT on AC
PAfib
HTN
seizures
CVA c/b aphasia
dysphagia with PEG tube in place
?h/o lung cancer
HTN on multiple meds
GERD
Hyponatremia
DM
Past Medical History: Other
Social History
Tobacco: Non-Smoker
Alcohol: None
Drug: None
Living: Penitentiary
Family History
Family History: Not Pertinent
Allergies / Home Medications
Allergy/AdvReac Type Severity Reaction Status Date / Time
adhesive tape Allergy Unknown Verified 02/18/24 10:12
codeine Allergy Unknown Verified 02/18/24 10:12
oxycodone Allergy Unknown Verified 02/18/24 10:12
tramadol Allergy Unknown Verified 02/18/24 10:12
�Medication �Instructions �Recorded �Confirmed �Type
amlodipine 10 mg tablet (Norvasc) 10 mg feeding tube DAILY Blood 12/27/23 02/18/24 History
Pressure
aspirin 81 mg chewable tablet 81 mg feeding tube DAILY Blood 12/27/23 02/18/24 History
Clot Prevention/Tx
atorvastatin 20 mg tablet (Lipitor) 20 mg feeding tube HS High 12/27/23 02/18/24 History
Cholesterol
bisacodyl 10 mg rectal suppository 10 mg [place] DAILYPRN PRN if no bm 12/27/23 02/18/24 History
(Dulcolax (bisacodyl)) aftr mom
clonidine 0.1 mg/24 hr weekly 1 patch transdermal TH Blood 12/27/23 02/18/24 History
transdermal patch Pressure
ferrous sulfate 300 mg (60 mg 300 mg feeding tube DAILY 12/27/23 02/18/24 History
iron)/5 mL oral liquid Supplement
insulin lispro 100 unit/mL 1 - 3 sliding scale dose SC AC 12/27/23 02/18/24 History
subcutaneous pen Diabetes
lacosamide 10 mg/mL oral solution 100 mg feeding tube BID Seizures 12/27/23 02/18/24 History
(Vimpat)
melatonin 3 mg tablet 3 mg feeding tube HSPRN PRN SLEEP 12/27/23 02/18/24 History
polyethylene glycol 3350 17 gram 17 g feeding tube DAILYPRN PRN 12/27/23 02/18/24 History
oral powder packet (Miralax) CONSTIPATION
apixaban 5 mg tablet (Eliquis) 5 mg feeding tube BID Blood Clot 01/03/24 02/18/24 Rx
Prevention/Tx #1 tab
hydralazine 50 mg tablet 50 mg feeding tube Q8 #0 tabs 01/03/24 02/18/24 Rx
lansoprazole 30 mg delayed 30 mg feeding tube DAILY #1 tab 01/03/24 02/18/24 Rx
release,disintegrating tablet
losartan 100 mg tablet 100 mg feeding tube DAILY #0 tabs 01/03/24 02/18/24 Rx
magnesium hydroxide 400 mg/5 mL 30 ml feeding tube HSPRN PRN if no 01/18/24 02/18/24 History
oral suspension (Milk of Magnesia) bm in 3 days
Review of Systems
-
unable to obtain , pt not responsive
Physical Exam
Vital Signs
Vital Signs
Temp Pulse Resp BP Pulse Ox
98.4 F 63 15 112/46 98
02/18/24 14:37 02/18/24 14:15 02/18/24 13:45 02/18/24 14:00 02/18/24 14:37
Lab Results
WBC 48.2 10^3/uL (4.8-10.8) H* 02/18/24 11:18
RBC 1.98 10^6/uL (4.20-5.40) L 02/18/24 11:18
Plt Count 472 10^3/uL (130-400) H 02/18/24 11:18
Sodium 129 mmol/L (135-145) L 02/18/24 11:18
Potassium 3.0 mmol/L (3.5-5.1) L 02/18/24 11:18
Chloride 95 mmol/L (98-107) L 02/18/24 11:18
Carbon Dioxide 16 mmol/L (22-30) L 02/18/24 11:18
BUN 133 mg/dl (7-17) H* 02/18/24 11:18
Creatinine 3.8 mg/dL (0.6-1.0) H 02/18/24 11:18
eGFR 11.91 02/18/24 11:18
Glucose 392 mg/dl (70-99) H 02/18/24 11:18
Calcium 9.5 mg/dl (8.4-10.2) 02/18/24 11:18
Albumin 2.4 g/dl (3.5-5.0) L 02/18/24 11:18
CXR:
FINDINGS: A single frontal radiograph of the chest was obtained at 10:12 AM on 02/18/2024.
There is a central venous catheter in place through left internal jugular access with its tip extending into the right atrium.
There is cardiac loop recorder overlying the lower left heart midline mediastinum
The cardiac silhouette and pulmonary vasculature are radiographically within normal limits.
There are no acute mediastinal abnormalities.
There are no acute pleural or parenchymal abnormalities.
IMPRESSION:
No active cardiopulmonary disease.
Pelvic xray:
IMPRESSION:
Osteopenia/osteoporosis
Atherosclerosis
Lumbar degenerative disc disease
Physical Exam
General: No Distress, Nontoxic and Other (unresponsive)
HEENT: Neck Supple and Trachea Midline
Respiratory: Clear, Normal Excursion, Nonlabored Respirations and Other (decreased)
Cardiac: S1/S2 and Regular Rate/Rhythm
Breast: Deferred by me
Abdomen: Soft, Nontender and Nondistended
Musculoskeletal: Edema (1+)
Skin: No Rash
Neuro: Other (unable to asess)
Psych: Other (unable to asess)
Vascular Access: CVC
Data Reviewed
-
Labs: Labs Reviewed by me and Discussed with Nurse
Assessment/Plan
-
Assessment:
ESRD on HD tunneled dialysis catheter, [facility]
Acute on chronic anemia likely from upper GI bleed on anticoagulants
Infected sacral decub wound
leucocytosis
Paroxysmal A-fib
Type 2 diabetes with hyperglycemia
Elevated transaminase
Dysphagia status post PEG tube
HTN�benign multidrug-
Hx CVA with immobility, dysphagia
Seizure disorder
Dementia�severe
CAD prior NSTEMI
Hyponatremia
Plan:
A/w decub wound and low hb, GIB
plan HD today as per schedule
high dose LAURA and PRBC 2 unit with HD, GI follows on PPI, AC held
hemodynamically stable
ok to resume anti HTN meds but with holding parameters specially with infection
abx per primary, dose renally
needs GOC discussion as she has multiple medical comorbidities and bedridden baseline
[2024-02-18] MEDS: APRESOLINE TUBE (16:14)
[2024-02-18 16:38] LABS: Vitamin B12 868 pg/ml (239-931)
--- NOTE | 2024-02-18 16:40 | W.PN.NEPH.HD ---
Assessment
-
pt seen during HD
SBP 111, currently receiving PRBC
clonidine patch on-may need to be removed if BP drops
CVC functions fine
bld flow 300 with high BUN
Progress Note - Hemodialysis
-
Date of Service: February 18, 2024
Duration: 30 minutes and 3 hours
Potassium Bath: 3
Calcium Bath: 2.5
Opti-Dialyzer: 160
Ultrafiltration: Other (1-1.5)
Blood Flow: 300
Dialysate Flow: Other (500)
Heparin: no
EPO: 22411
--- NOTE | 2024-02-18 16:53 | PTCARENOTE ---
Rec'd pt from the ED via stretcher at 1505- Rec'd pt with eyes closed but does open them to verbal/tactile stimuli. If you are right in front of her she somewhat will look at stimuli but no tracking. Pupils are sluggish at 1mm. Arms and legs are
contracted. No movement of extremities currently. Mouth swabbed - tongue is whitish. Pt only gives a sl moan with turning otherwise is non-verbal. Respirs are shallow but non-labored on RA with sats of 99%. BS are overall decreased. Monitor SR in
the 60's. + pulses. +1 gen anasarca. VS as documented. Abd is soft with hypoactive BS. L abd with Gtube that is clamped. site wnl. No stool noted. Pt is anuric. IV Protonix infusing at 10 ml/hr via L arm Midline. L upper chest tunneled HD cath-site
wnl. HD started on pt at 1545. Skin- wounds as documented. L ear with small necrotic area. R ear with 2 areas of skin tear and Sacrum with very large unstageable wound that is draining very foul smelling purulent drainage. Wound cultures obtained.
Wound RN notified and examined wounds. See documentation. Complete CHG bath given. Pt turned and repositioned.
[2024-02-18] MEDS: RETACRIT 10000 UNITS IV (17:09)
[2024-02-18 17:26] LABS: Glucose - Point of Care 322 mg/dl (70-99)
--- NOTE | 2024-02-18 17:30 | PTCARENOTE ---
HD continues. Wound cultures sent that were collected on admission. Pt remains-opening eyes to stimulation and occasionally will look at stimuli if in front of her face but follows no commands and other than a sl moan is non-verbal. VS as
documented. Glucose resulted as 322- pharmacy and Dr. Angulo made aware. #1 unit of PRBC continues to infuse on HD
--- NOTE | 2024-02-18 17:50 | PTCARENOTE ---
Pt arrived with Catapres patch- Dr. Osorio in and requested patch be removed. Patch removed from R upper arm
[2024-02-18] MEDS: NOVOLOG FLEXPEN-HIGH RESISTANCE 10 UNITS SC (18:29)
[2024-02-18] MEDS: LANTUS 0.1 UNITS SC (18:29)
--- NOTE | 2024-02-18 18:30 | PTCARENOTE ---
Lantus 10 unit and Novolog 10 units given for BS 322.
--- NOTE | 2024-02-18 18:35 | PTCARENOTE ---
HD continues- #2 unit PRBC hung. No changes in assessment
--- NOTE | 2024-02-18 19:25 | PHA.VAN.IN ---
Assessment
- Assessment
Renal Function: Patient has ESRD, on chronic Hemodialysis
Hemodialysis Schedule: MWF
Concomitant Antimicrobials: piperacillin/tazobactam
Plan
- Plan
Initial / Loading Dose: vanc 1250mg pending administration
Maintenance Regimen: dosing by level with HD
Monitoring: no levels ordered at this time. consider pre-HD level 02/19
Pharmacokinetics Vancomycin I
- -
Patient Age: 73
Patient Sex: Female
Vancomycin Day #: 1
Indication: Skin And Soft Tissue
Requesting Provider: Roxana Gonzales
Pertinent Antimicrobial Allergies:
no pertinent antimicrobial allergies
Height / Weight:
Height 5 ft 6 in
Actual Weight 68.4 kg
- Vital Signs / Lab Results
Temp Pulse Resp BP Pulse Ox
97.8 F 72 20 114/70 99
02/18/24 19:15 02/18/24 19:15 02/18/24 19:15 02/18/24 19:15 02/18/24 18:45
Lab Results - Hematology
02/18/24
11:18
WBC 48.2 H*
Band Neutrophils 3
Lab Results - Chemistry
02/18/24
11:18
BUN 133 H*
Creatinine 3.8 H
Estimated Creat Clear 12
Albumin 2.4 L
02/18/24 02/18/24
11:18 14:15
Lactic Acid 2.0 Cancelled
[2024-02-18 19:48] LABS: Hematocrit 27.9 % (37.0-47.0); Hemoglobin 10.2 g/dL (12.0-16.0)
--- NOTE | 2024-02-18 20:15 | PTCARENOTE ---
pt received from previous rn on dialysis- left chest wall permacath. pt given second unit of blood by access rn. repeat hnh completed. pt turned and repositioned oral care provided. nsr on monitor ,room air. cpot 0. opens eyes spontaneously,
grinding teeth, does not do any purposeful movement. all safety precautions in place.
[2024-02-18] MEDS: VIMPAT 100 MG TUBE (20:55)
[2024-02-18] MEDS: DAKIN'S SOLUTION 0.125% 1/4 STRENGTH 473 ML TOPICAL (20:55)
[2024-02-18] MEDS: VANCOCIN 275 MG IV (20:55)
[2024-02-18] MEDS: NOVOLOG FLEXPEN-HIGH RESISTANCE 7 UNITS SC (22:56)
[2024-02-18] MEDS: APRESOLINE 50 MG TUBE (22:57)
[2024-02-18 23:06] LABS: Glucose - Point of Care 284 mg/dl (70-99)
[2024-02-19] VITALS (27 sets, daily range): BP systolic 97–149; BP diastolic 42–83; BMI 24.2
--- NOTE | 2024-02-19 01:00 | PTCARENOTE ---
Assumed care of pt from previous RN. Walking rounds completed. Pt nonverbal at baseline. No purposeful movements. SR on the monitor. HR 80-90s. BP stable. Bilateral upper/lower +1 edema. RA. POX 98%. Lung sounds clear to auscultation. Abdomen soft.
Hypoactive BS. L abdomen G-tube clamped. Pt anuric. Pt receives dialysis. IV Protonix infusing as ordered. Wound care as documented. Pt turned and repositioned. VS as documented. See worklist for full nursing assessment and interventions.
[2024-02-19] MEDS: ZOSYN 50 IV ×3 (03:45→20:27)
[2024-02-19 03:58] LABS: Hematocrit 26.7 % (37.0-47.0); Hemoglobin 9.9 g/dL (12.0-16.0); Mean Corp Hgb Conc. 37.1 g/dL (33.0-37.0); Mean Corpuscular Hgb 29.6 pg (27.0-31.0); Mean Corpuscular Volume 79.9 fL (81.0-99.0); Mean Platelet Volume 9.2 fL (7.4-10.4); Platelet Count 477 10^3/uL (130-400); Red Blood Cell Count 3.34 10^6/uL (4.20-5.40); Red Cell Dist. Width 15.2 % (11.5-14.5); White Blood Cell Count 49.8 10^3/uL (4.8-10.8)
--- NOTE | 2024-02-19 04:30 | PTCARENOTE ---
No acute changes in assessment. Pt mental status unchanged. Non-verbal. Opens eyes spontaneously. No purposeful movements. CPOT 0. Pt remains SR in the 80-90s. BP stable. Pt remains on RA. POX 100%. Left abdomen g-tube intact. Sacral wound dressing
changed as ordered. Pt washed w/ CHG wipes, turned, and repositioned. Ordered labs drawn and sent.
[2024-02-19 04:31] LABS: ALT (SGPT) 151 U/L (0-35); AST (SGOT) 247 U/L (14-36); Albumin 2.9 g/dl (3.5-5.0); Alkaline Phosphatase 255 U/L (38-126); Blood Urea Nitrogen 65 mg/dl (7-17); Carbon Dioxide 22 mmol/L (22-30); Chloride 100 mmol/L (98-107); Estimated Creatinine Clearance 22 ml/min; Glucose 134 mg/dl (70-99); Potassium 3.4 mmol/L (3.5-5.1); Sodium 136 mmol/L (135-145); Total Bilirubin 1.4 mg/dl (0.2-1.3); Total Protein 6.4 g/dl (6.3-8.2); eGFR 24.27
[2024-02-19 04:42] LABS: Hepatitis B Surface Antigen Negative (Negative)
[2024-02-19] MEDS: NOVOLOG FLEXPEN-HIGH RESISTANCE 1 UNITS SC (06:06)
[2024-02-19 06:17] LABS: Glucose - Point of Care 142 mg/dl (70-99)
--- NOTE | 2024-02-19 08:00 | PTCARENOTE ---
Assumed care of pt from previous RN. Walking rounds completed. Pt nonverbal, opens eyes spontaneously. Does not follow commands. NSR on the monitor. HR 80-90s. VSS. +1 gen edema. 98% on RA. Lungs clear. BS. G-tube present and clamped. anuric. Large
sacral decub dressing intact. Foams to melba ears and heels. Protonix gtt infusing as ordered. Q2 turn. Will continue to monitor.
--- NOTE | 2024-02-19 08:12 | PHA.VAN.FU ---
Vancomycin Assessment / Plan
- Assessment
Hemodialysis Schedule: MWF
Last Hemodialysis performed: Mon 02/17
WBC's are: Stable
In the past 24 hrs, patient has been: Afebrile
Concomitant Antimicrobials: piperacillin/tazobactam
- Dosing Plan
Dosing by Level: Hold off on dosing today
- Monitoring Plan
Random Level: pre-HD 02/19
- Follow Up
Pharmacy will continue to follow.
Vancomycin Follow UP
- -
Patient Age: 73
Patient Sex: Female
Vancomycin Day #: 2
Indication: Skin And Soft Tissue
Requesting Provider: Roxana Gonzales
Pertinent Antimicrobial Allergies:
no pertinent antimicrobial allergies
Height / Weight:
Height 5 ft 6 in
Actual Weight 67.9 kg
Pertinent Past Medical History: ESRD on HD MWF
- Vital Signs / Lab Results
Temp Pulse Resp BP Pulse Ox
99.5 F 84 19 130/43 100
02/19/24 08:10 02/19/24 07:00 02/19/24 07:00 02/19/24 07:00 02/19/24 07:00
Lab Results - Hematology
02/18/24 02/19/24
11:18 03:38
WBC 48.2 H* 49.8 H*
Band Neutrophils 3
Lab Results - Chemistry
02/18/24 02/19/24
11:18 03:38
BUN 133 H* 65 H
Creatinine 3.8 H 2.1 H
Estimated Creat Clear 12
Albumin 2.4 L 2.9 L
02/18/24 02/18/24
11:18 14:15
Lactic Acid 2.0 Cancelled
[2024-02-19] MEDS: PROTONIX 100 IV ×2 (08:25→20:26)
[2024-02-19] MEDS: VIMPAT 100 MG TUBE ×2 (08:25→20:27)
[2024-02-19] MEDS: FERROUS SULFATE ORAL LIQUID 300 MG TUBE (08:25)
[2024-02-19] MEDS: COZAAR 100 MG TUBE (08:26)
[2024-02-19] MEDS: APRESOLINE 50 MG TUBE ×2 (08:26→15:02)
[2024-02-19] MEDS: DAKIN'S SOLUTION 0.125% 1/4 STRENGTH 473 ML TOPICAL (08:26)
[2024-02-19] MEDS: NORVASC 10 MG TUBE (08:26)
[2024-02-19 09:14] LABS: Glycohemoglobin (HgbA1c) 6.1 % (4.0-5.6)
--- NOTE | 2024-02-19 11:23 | W.PN.NEPH.PH ---
Addendum entered and electronically signed by Aggie Osorio MD 02/19/24 11:34:
HD tomorrow
Original Note:
Today's Communication / Plan
-
gentle IVF while NPO
Assessment/Plan
-
Assessment:
ESRD on HD tunneled dialysis catheter, [facility]
Acute on chronic anemia likely from upper GI bleed on anticoagulants
Infected sacral decub wound
leucocytosis
Paroxysmal A-fib
Type 2 diabetes with hyperglycemia
Elevated transaminase
Dysphagia status post PEG tube
HTN�benign multidrug-
Hx CVA with immobility, dysphagia
Seizure disorder
Dementia�severe
CAD prior NSTEMI
Hyponatremia
Plan:
A/w decub wound and low hb, GIB
metabolic parameters are acceptable
hb better post PRBC
gentle IVF while NPO, repalce k
for EGD today and also debridement of decub wound
BP are soft-would have holding parameters
abx per primary, dose renally
needs GOC discussion as she has multiple comorbidities and bedridden baseline
-
-
Date of Service: February 19, 2024
CC / HPI / ROS
-
Chief Complaint:
ESRD
History of Present Illness:
hb better at 9.9, BP are soft after Am meds
wbc remains high 49k
T max 100.2
k low 3.4
Review of Systems:
non verbal, on RA
Labs
-
Labs:
WBC 49.8 10^3/uL (4.8-10.8) H* 02/19/24 03:38
RBC 3.34 10^6/uL (4.20-5.40) L 02/19/24 03:38
Hgb 9.9 g/dL (12.0-16.0) L 02/19/24 03:38
Hct 26.7 % (37.0-47.0) L 02/19/24 03:38
Plt Count 477 10^3/uL (130-400) H 02/19/24 03:38
Sodium 136 mmol/L (135-145) 02/19/24 03:38
Potassium 3.4 mmol/L (3.5-5.1) L 02/19/24 03:38
Chloride 100 mmol/L (98-107) 02/19/24 03:38
Carbon Dioxide 22 mmol/L (22-30) 02/19/24 03:38
BUN 65 mg/dl (7-17) H 02/19/24 03:38
Creatinine 2.1 mg/dL (0.6-1.0) H 02/19/24 03:38
eGFR 24.27 02/19/24 03:38
Glucose 134 mg/dl (70-99) H 02/19/24 03:38
Calcium 9.0 mg/dl (8.4-10.2) 02/19/24 03:38
Albumin 2.9 g/dl (3.5-5.0) L 02/19/24 03:38
Physical Exam
-
Vital Signs:
Vital Signs
Temp Pulse Resp BP Pulse Ox
98.8 F 77 20 123/44 99
02/19/24 11:20 02/19/24 09:45 02/19/24 09:45 02/19/24 09:00 02/19/24 09:45
Cardiovascular:: Regular rate and rhythm
Respiratory:: Bilateral: CTA
Lung Excursion:: Normal
Abdomen:: Nontender and Soft
Extremity Edema:: +1: Bilateral:
Castañeda Catheter: No
--- NOTE | 2024-02-19 11:46 | CON.GS ---
Medical History
-
Chief Complaint: Sacral wound
History of Present Illness:
Patient is a 73 yo F with a PMH of HTN, HLD, CAD c/b NM, A-fib (on Eliquis, LD > 48 hours), DVT/PE, NIDDM, ESRD on HD, seizure disorder, and CVA c/b dysphagia s/p PEG. She presents to from her [facility]itent[facility] with concern for an
infected sacral decubitus ulcer as well as an elevated WBC and anemia. Patient is nonverbal. History is limited and obtained from chart review. No reports of fevers or chills. Reports of sacral discomfort with turns. She was recently
hospitalized at [facility] with concerns and workup at that time for a possible metastatic lung cancer.
Past Medical History
Past Medical History: Arrhythmias, CAD, CVA, GERD, HTN, Hypercholesterolemia, NIDDM, NM, Renal Failure and Other (Anemia of chronic disease, seizure disorder)
Past Surgical History: Other (PEG)
Social History
Tobacco: Non-Smoker
Alcohol: None
Drug: None
Living: Detention
Family History
Family History: Reviewed & Not Pertinent
Allergies / Home Medications
Allergy/AdvReac Type Severity Reaction Status Date / Time
adhesive tape Allergy Unknown Verified 02/18/24 10:12
codeine Allergy Unknown Verified 02/18/24 10:12
oxycodone Allergy Unknown Verified 02/18/24 10:12
tramadol Allergy Unknown Verified 02/18/24 10:12
�Medication �Instructions �Recorded �Confirmed �Type
amlodipine 10 mg tablet (Norvasc) 10 mg feeding tube DAILY Blood 12/27/23 02/18/24 History
Pressure
aspirin 81 mg chewable tablet 81 mg feeding tube DAILY Blood 12/27/23 02/18/24 History
Clot Prevention/Tx
atorvastatin 20 mg tablet (Lipitor) 20 mg feeding tube HS High 12/27/23 02/18/24 History
Cholesterol
bisacodyl 10 mg rectal suppository 10 mg [place] DAILYPRN PRN if no bm 12/27/23 02/18/24 History
(Dulcolax (bisacodyl)) aftr mom
clonidine 0.1 mg/24 hr weekly 1 patch transdermal TH Blood 12/27/23 02/18/24 History
transdermal patch Pressure
ferrous sulfate 300 mg (60 mg 300 mg feeding tube DAILY 12/27/23 02/18/24 History
iron)/5 mL oral liquid Supplement
insulin lispro 100 unit/mL 1 - 3 sliding scale dose SC AC 12/27/23 02/18/24 History
subcutaneous pen Diabetes
lacosamide 10 mg/mL oral solution 100 mg feeding tube BID Seizures 12/27/23 02/18/24 History
(Vimpat)
melatonin 3 mg tablet 3 mg feeding tube HSPRN PRN SLEEP 12/27/23 02/18/24 History
polyethylene glycol 3350 17 gram 17 g feeding tube DAILYPRN PRN 12/27/23 02/18/24 History
oral powder packet (Miralax) CONSTIPATION
apixaban 5 mg tablet (Eliquis) 5 mg feeding tube BID Blood Clot 01/03/24 02/18/24 Rx
Prevention/Tx #1 tab
hydralazine 50 mg tablet 50 mg feeding tube Q8 #0 tabs 01/03/24 02/18/24 Rx
lansoprazole 30 mg delayed 30 mg feeding tube DAILY #1 tab 01/03/24 02/18/24 Rx
release,disintegrating tablet
losartan 100 mg tablet 100 mg feeding tube DAILY #0 tabs 01/03/24 02/18/24 Rx
magnesium hydroxide 400 mg/5 mL 30 ml feeding tube HSPRN PRN if no 01/18/24 02/18/24 History
oral suspension (Milk of Magnesia) bm in 3 days
Review of Systems
-
A 10 point review of systems was completed, and was negative except as per HPI.
Physical Exam
Vital Signs
Temp Pulse Resp BP Pulse Ox
98.8 F 77 20 123/44 99
02/19/24 11:20 02/19/24 09:45 02/19/24 09:45 02/19/24 09:00 02/19/24 09:45
02/18/24 02/19/24 02/20/24
06:59 06:59 06:59
Actual Weight 67.9 kg
Body Mass Index (BMI) 24.2
Lab Results
02/19/24 03:38
02/19/24 03:38
WBC 49.8 10^3/uL (4.8-10.8) H* 02/19/24 03:38
Hgb 9.9 g/dL (12.0-16.0) L 02/19/24 03:38
Hct 26.7 % (37.0-47.0) L 02/19/24 03:38
Plt Count 477 10^3/uL (130-400) H 02/19/24 03:38
Physical Exam
General: Well Developed, Well Nourished and No Apparent Distress
HEENT: Normocephalic and Anicteric
Respiratory: Non Labored Respirations
Cardiac: Irregular Rhythm
GI: Soft, Non Tender and Non Distended
Rectal: Other (Large unstageable sacral decubitus ulcer with overlying skin necrosis, no active drainage, slightly boggy inferiorly, no surrounding erythema, discomfort with turn and palpation, no visible bone externally, wound measurements
approximately 20 x 20 cm)
Musculoskeletal: No Edema
Skin: Warm and Dry
Data Reviewed
-
Radiology: Report Reviewed by me
Labs: Labs Reviewed by me
Old Records: Reviewed
Assessment / Plan
-
Patient is a 73 yo F p/w concern for a infected sacral decubitus ulcer, unstageable at least 3-4
In-depth discussion was had with the patient's daughter. Natural history and pathophysiology of decubitus ulcers was discussed. We discussed that she has evidence of necrotic and likely infected tissue underlying her ulcer. We discussed the large
nature in size and complexity of her case. We discussed that given her general medical condition including poor peripheral vascular perfusion, malnourishment, and immobility there is a high likelihood that she will never healed this wound. We
discussed that surgical debridement to clear out infected tissue would likely be an ongoing process and needed on a repeat basis in the weeks to months to come. We also discussed the possibility of osteomyelitis with the potential inability to
completely clear her infection and need for prolonged antibiotics. We discussed the potential for wound care issues with stool contamination and potential need for an ostomy in the future. Options for management including a focus on more comfort
measures versus proceeding with surgical management were considered and discussed. Unfortunately patient's is no longer answering phone calls from medical staff. Discussion regarding the above with the patient's daughter. Patient's
daughter states that she would like to proceed with all medical care. All questions answered. Telephone consent obtained.
-- Incision and debridement of sacral decubitus ulcer, case to be coordinated with GI and enteroscopy
-- NPO, TF on hold
-- Antibiotics: Vancomycin and Zosyn
[2024-02-19] MEDS: NSS 1000 IV (11:56)
--- NOTE | 2024-02-19 12:02 | W.SUR.PREOP ---
Pre-Operative Surgical Note
-
I have examined this patient prior to the performance of the scheduled procedure.
The patient's condition is unchanged from the time of the current History and
Physical and the patient is able to undergo the scheduled procedure.
[2024-02-19 12:05] LABS: Glucose - Point of Care 168 mg/dl (70-99)
[2024-02-19] MEDS: NOVOLOG FLEXPEN-HIGH RESISTANCE 2 UNITS SC (12:06)
--- NOTE | 2024-02-19 13:16 | CM ---
CM following re: discharge planning.
Reviewed pt's chart, met with pt.
Pt is a 73 year old female, admitted with primary dx of Acute on chronic anemia likely from upper GI bleed on anticoagulants.
Pt is a care home care resident at [facility], non-verbal, required total care, on HD. Pt is on Medicaid 15 day bed hold.
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
CM will follow with discharge plan updates as hospitalization progresses
--- NOTE | 2024-02-19 13:37 | PTCARENOTE ---
sent down to or for debreidment in bed
--- NOTE | 2024-02-19 14:22 | W.IMMPOSTOP ---
Addendum entered and electronically signed by Jhonatan Vergara MD 02/19/24 15:07:
[facility]#[id number]
Original Note:
Surgical Immed Post Op Note
-
Primary Surgeon: Jai
Assisting Surgeon: Michael
Pre-op Diagnosis: Sacral decubitus ulcer
Post-op Diagnosis: Sacral decubitus ulcer
Procedure Performed: Incision and debridement of sacral decubitus ulcer in preparation for possible soft tissue transfer, EGD
Anesthesia Type: General
Specimen / Cultures:
1. Wound culture
Estimated Blood Loss: 7 cc
Complications: None
Operative Findings:
1. EGD performed by GI see separate operative report for details
2. 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
3. Wound measurements 20 x 12 x 3 cm
4. Anus in close proximity to inferior aspect, no violation or injury
--- NOTE | 2024-02-19 14:40 | W.PN.HOSP.TC ---
Today's Communication/Plan
-
monitor cbc, hgb and wbc
cont abx
f/u cultures including cdiff
restart eliquis once hgb remains stable and no further evidence of bleeding
ruq sono
Assessment / Plan
Assessment / Plan
Physical Exam
General: Well Developed, Well Nourished and No Apparent Distress
HEENT: NormoCephalic, Moist mucous membranes and Atraumatic
Respiratory: Clear
Cardiac: S1/S2 and Regular Rhythm; No Murmur or Rub
GI: Soft, Non Tender, Non Distended and Normal Bowel Sounds; No Organomegaly
Rectal: Deferred by Provider
Musculoskeletal: No Clubbing, No Cyanosis and No Edema
Skin: Rash and Decubitus Ulcers (sacral)
Neuro: Nonfocal/grossly intact
# Acute on chronic anemia likely from upper GI bleed on anticoagulants
-Hold Eliquis
-Hemoglobin 5.8
-Corrected this with prbc
-maintain hgb >7
- EGD: Esophagitis, no bleeding, clean based ulcer
-Use Protonix (pantoprazole) 40 mg PO BID for 8 weeks followed by once daily.
-can restart feeds post procedure if hgb remains stable
-GI consulted
Colonoscopy 12/27/2023: No source of bleeding multiple polypectomies proximal ascending colon, sigmoid colon removed with snare, internal hemorrhoids all benign neoplasm
#Sepsis
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
-sharp excisional debridement performed with cautery and scissors
-WBC 48.2
-iv Zosyn,vanco continued
-wound care consulted
-Cdiff f/u, f/u blood cultures
#Hypokalemia
-monitor and replete
#Transaminitis
-ruq sono
# History of CVA
-asa held
# Paroxysmal A-fib
-HR controlled
-obtain EKG
-hold eliquis
# end-stage renal disease on dialysis
# Hyponatremia/hypokalemia/metabolic acidosis
-Sodium 129, K3.0, CO2 16
-nephrology consulted
# Type 2 diabetes with hyperglycemia
-Blood sugar elevated in 300s
-sliding scale continued
# Elevated transaminase
-AST 115, ALT 97, ALK 333
-hold statin
#Dysphagia status post PEG tube
-All meds via PEG tube
-TF held due to GI bleed
-nutrition consult
HTN�benign multidrug-resistant
-Continue Norvasc 10 mg, clonidine transdermal patch, hydralazine 50 mg every 8h, losartan 100 mg
-CTM
#Hx CVA with immobility, dysphagia
#Seizure disorder
- hx EEG 01/04/24 no seizures
-Continue Vimpat 100 mg twice daily
#Dementia�severe
Keep head of bed raised to 30 degrees at all times
-May suction secretions
#CAD prior NSTEMI,
#DVT prophylaxis
SCDs
#CODE STATUS:
-Full code
Total time spent on today's encounter was 50 minutes which included time spent in counseling the patient/family regarding diagnosis and treatment plan as listed above, goals of care, and symptom management. Case was discussed with nursing staff,
specialists, and care coordinators/case management. All labs and imaging personally reviewed by me. Remainder the time spent in detailed review of previous records, lab data, imaging, and other medical provider documentation.
Anticipated Discharge: > 48 hours
Subjective/Interval History
-
Date of Service: February 19, 2024
no acute events
Objective Data
-
Labs:
Laboratory Results
02/19/24 02/19/24
01:00 03:38
WBC 49.8 H*
Hgb Cancelled 9.9 L
Hct Cancelled 26.7 L
Plt Count 477 H
Sodium 136
Potassium 3.4 L
Chloride 100
Carbon Dioxide 22
BUN 65 H
Creatinine 2.1 H
Glucose 134 H
Calcium 9.0
Total Bilirubin 1.4 H
AST 247 H
ALT 151 H
Alkaline Phosphatase 255 H
Vital Signs:
Vital Signs
Temp Pulse Resp BP Pulse Ox
98.8 F 81 17 97/83 100
02/19/24 11:20 02/19/24 12:15 02/19/24 12:15 02/19/24 11:00 02/19/24 12:15
I&O
02/18/24 02/19/24 02/20/24
06:59 06:59 06:59
Intake Total 960 / 970
Balance 960 / 970
Review of Systems
-
History Source: Patient
All other systems: Not reviewed unless documented
Data Reviewed
-
Diagnostic Radiology: Report Reviewed by me
Labs: Labs Reviewed by me
[2024-02-19] MEDS: KCL 270 MEQ IV (14:58)
[2024-02-19 17:45] LABS: Glucose - Point of Care 206 mg/dl (70-99)
[2024-02-19] MEDS: NOVOLOG FLEXPEN-HIGH RESISTANCE 4 UNITS SC (18:25)
--- NOTE | 2024-02-19 21:30 | PTCARENOTE ---
Rec'd pt from previous shift resting in bed. Opens eyes spontaneously, no purposeful movement, no consistent tracking, h/o stroke. Dependent care, turns q2h. Afebrile. NSR on monitor. IV lines flushed patent. Protonix gtt as ordered. Room air 97%.
NPO status maintained. Peg care provided. Anuric, HD MWF. Will monitor.
[2024-02-19] MEDS: DAKIN'S SOLUTION 0.125% 1/4 STRENGTH TOPICAL (21:33)
[2024-02-19 23:37] LABS: Glucose - Point of Care 186 mg/dl (70-99)
[2024-02-20] VITALS (43 sets, daily range): BP systolic 108–149; BP diastolic 32–61; BMI 25.0
[2024-02-20] MEDS: APRESOLINE 50 MG TUBE ×2 (00:11→17:06)
[2024-02-20] MEDS: NOVOLOG FLEXPEN-HIGH RESISTANCE 2 UNITS SC ×2 (00:11→05:23)
[2024-02-20] MEDS: ZOSYN 50 IV ×2 (03:40→17:06)
[2024-02-20 04:15] LABS: Hematocrit 20.6 % (37.0-47.0); Hemoglobin 7.4 g/dL (12.0-16.0); Mean Corp Hgb Conc. 35.9 g/dL (33.0-37.0); Mean Corpuscular Hgb 29.1 pg (27.0-31.0); Mean Corpuscular Volume 81.1 fL (81.0-99.0); Mean Platelet Volume 9.2 fL (7.4-10.4); Platelet Count 401 10^3/uL (130-400); Red Blood Cell Count 2.54 10^6/uL (4.20-5.40); Red Cell Dist. Width 15.7 % (11.5-14.5); White Blood Cell Count 44.1 10^3/uL (4.8-10.8)
--- NOTE | 2024-02-20 04:23 | PTCARENOTE ---
received patient as IMU overflow from ICU- pt is non-verbal at baseline, opens eyes to tactile and verbal stimuli. pt moans with turns and was able to say 'yes' when asked if she is okay. q2t- oral care done. IV protonix and IV fluids infusing. this
AM labs critical, WBC-44.1 and HCT-20.6. notified covering [employer] SPECIALIST SALES- no new orders. care ongoing.
[2024-02-20 04:25] LABS: ALT (SGPT) 152 U/L (0-35); AST (SGOT) 215 U/L (14-36); Albumin 2.2 g/dl (3.5-5.0); Alkaline Phosphatase 176 U/L (38-126); Blood Urea Nitrogen 78 mg/dl (7-17); Calcium 8.1 mg/dl (8.4-10.2); Carbon Dioxide 20 mmol/L (22-30); Chloride 102 mmol/L (98-107); Estimated Creatinine Clearance 17 ml/min; Glucose 164 mg/dl (70-99); Potassium 3.6 mmol/L (3.5-5.1); Sodium 136 mmol/L (135-145); Total Bilirubin 1.2 mg/dl (0.2-1.3); Total Protein 5.3 g/dl (6.3-8.2); eGFR 17.95
[2024-02-20 04:28] LABS: Vancomycin Random 12.2 ug/ml
[2024-02-20] MEDS: NSS 1000 IV (05:23)
[2024-02-20] MEDS: PROTONIX 100 IV (05:23)
[2024-02-20 05:34] LABS: Glucose - Point of Care 188 mg/dl (70-99)
--- NOTE | 2024-02-20 08:26 | PHA.VAN.FU ---
Vancomycin Assessment / Plan
- Assessment
Hemodialysis Schedule: MWF
WBC's are: Trending Down
- Assessment - Therapeutic Drug Monitoring
Random Level: pre-HD = 12.2
- Dosing Plan
Dosing by Level: Re-dose today (Vanc 750mg)
- Monitoring Plan
No level(s) ordered at this time: consider level prior to HD Fri
- Follow Up
Pharmacy will continue to follow.
Vancomycin Follow UP
- -
Patient Age: 73
Patient Sex: Female
Vancomycin Day #: 3
Indication: Skin And Soft Tissue
Requesting Provider: Roxana Gonzales
Pertinent Antimicrobial Allergies:
no pertinent antimicrobial allergies
Height / Weight:
Height 5 ft 6 in
Actual Weight 70.2 kg
Pertinent Past Medical History: ESRD on HD MWF
- Vital Signs / Lab Results
Temp Pulse Resp BP Pulse Ox
96.4 F L 66 8 125/54 98
02/20/24 04:23 02/20/24 06:00 02/20/24 06:00 02/20/24 06:00 02/20/24 06:00
Lab Results - Hematology
02/18/24 02/19/24 02/20/24
11:18 03:38 03:50
WBC 48.2 H* 49.8 H* 44.1 H*
Band Neutrophils 3
Lab Results - Chemistry
02/18/24 02/19/24 02/20/24
11:18 03:38 03:50
BUN 133 H* 65 H 78 H
Creatinine 3.8 H 2.1 H 2.7 H
Estimated Creat Clear 12 17
Albumin 2.4 L 2.9 L 2.2 L
02/18/24 02/18/24
11:18 14:15
Lactic Acid 2.0 Cancelled
Microbiology Results
02/19/24 14:41 Gram Stain - Preliminary
Sacral
02/18/24 17:19 Wound Culture - Preliminary
Sacral Gram Stain - Preliminary
02/18/24 17:19 Wound Culture - Preliminary
Decubitis Ulcer Gram Stain - Preliminary
Therapeutic Drug Monitoring
Random Vancomycin 12.2 ug/ml 02/20/24 03:50
--- NOTE | 2024-02-20 10:20 | WOUNDNOTE ---
FABIENNE RN NOTE: Followed up this morning along with Dr. Denise and medical receptionist medical assistant. Stage 4 pressure injury, see photos. Dressing applied using Dakin's moist Kerlix, abd pads and medipore tape, to be changed daily and prn drainage per Dr. Denise. L
ischium dressing changed, wound remains unchanged. Repositioned patient onto L semi side lying position. Pillows under calves, protective foams in use on heels and R ischium. Remains on [facility] air mattress. Updated nurse Pat and will
follow as needed.
[2024-02-20 10:27] LABS: LDH 216 U/L (120-246)
[2024-02-20] MEDS: FERROUS SULFATE ORAL LIQUID 300 MG TUBE (10:44)
[2024-02-20] MEDS: NSS (PRESERVATIVE FREE) 10 ML IV ×2 (10:44→20:55)
[2024-02-20] MEDS: PROTONIX IV 40 MG IV ×2 (10:44→20:55)
[2024-02-20] MEDS: NORVASC TUBE (10:45)
[2024-02-20] MEDS: APRESOLINE TUBE (10:46)
--- NOTE | 2024-02-20 10:54 | W.PN.UPDATE ---
Update Note
Progress Note Update
Pt seen and evaluated at bedside. Dressing removed and wound examined. No soilage, no necrosis, small oozing from superior most aspect controlled with pressure, foul odor noted. dakins and saline w2d dressing applied together with wound care team.
Continue offloading, nutritional support, local wound care. Consider GOC discussion with family, quality of life is limited here and unlikely to improve. Pls call with ?s
[2024-02-20] MEDS: DAKIN'S SOLUTION 0.125% 1/4 STRENGTH TOPICAL (11:17)
[2024-02-20] MEDS: NOVOLOG FLEXPEN-HIGH RESISTANCE 1 UNITS SC (12:27)
[2024-02-20 12:30] LABS: Glucose - Point of Care 152 mg/dl (70-99)
[2024-02-20] MEDS: VIMPAT 100 MG TUBE ×2 (12:30→20:55)
--- NOTE | 2024-02-20 13:17 | PN.CDI ---
CDI
- -
CDI:
Physician Documentation Request
Admit Date: 02/18/24 13:36
Dear Doctor Gavino,
Please review the following and provide your response in the progress notes.
Clinical Indicators:
Pt admitted with acute on chronic anemia/GI bleed/Sepsis with infected sacral ulcer
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
Documented per WOCN note 02/17, ' Sacral unstageable PI suspect stage 4, eschar gold, soft and boggy with a foul odor. L posterior thigh/ischium with stage 2 vs 3 PI. B/L ear rims with stage 2 PI's.... Foam adhesives applied to heels. silicone foam
to L posterior thigh. Xeroform abd pads and silicone tape applied to sacrum...'
Physician documentation of the type and location of wounds is required for compliant documentation. Based on the above clinical findings and your assessment, please provide the following in your progress note:
1. Location of the ulcer/wound, including laterality.( FOR EACH WOUND)
2. Type (etiology) of ulcer/wound:
- Pressure (decubitus) ulcer
- Non-pressure ulcer
- Other
Use of terms such as suspected, likely, concern for, or probable (associated with a specific diagnosis that is being evaluated, monitored, or treated as if it exists) are acceptable and can be coded in the inpatient setting, when documented at the
time of discharge.
Thank you,
Natalia Pathak RN
CDI Specialist
[place] [facility]
Please use your independent medical judgment in providing your response.
*Source: National Pressure Ulcer Advisory Panel (NPUAP)
--- NOTE | 2024-02-20 13:29 | PN.CDI ---
CDI
- -
CDI:
Physician Documentation Request
Admit Date: 02/18/24 13:36
Dear Doctor Gavino ,
Please review the following and provide your response in the progress notes.
Clinical Indicators:
Pt admitted with acute on chronic anemia/GI bleed/Sepsis with infected sacral ulcer /HX of Pafib on Eliquis
Documented throughout the record, ' Acute on chronic anemia likely from upper GI bleed on anticoagulants Hold Eliquis...'
Progress note 02/18,' restart eliquis once hgb remains stable and no further evidence of bleeding...'
EGD states Acute blood loss Anemia /Pt s/p 2 units PRBCs
Please clarify the relationship between these conditions:
Yes, _ABLA/GI bleed__ is related to/associated with/exacerbated by Eliquis use ___.
No, __ABLA/GI bleed _ is not related to/associated with/exacerbated by Eliquis use ___ but it is due to ___. (Please specify)
Unable to determine
Use of terms such as suspected, likely, concern for, or probable (associated with a specific diagnosis that is being evaluated, monitored, or treated as if it exists) are acceptable and can be coded in the inpatient setting, when documented at the
time of discharge.
Thank you,
Natalia Pathak RN
CDI Specialist
[place] [facility]
Please use your independent medical judgment in providing your response.
--- NOTE | 2024-02-20 13:35 | PN.CDI ---
CDI
- -
CDI:
Physician Documentation Request
Admit Date: 02/18/24 13:36
Dear Doctor Gavino,
Please review the following and provide your response in the progress notes.
Clinical Indicators:
Pt admitted with acute on chronic anemia/GI bleed/Sepsis with infected sacral ulcer /Dementia
Pt nonverbal at baseline /Pt is also bedridden with PEG tube/feeds
Patient care note 02/17 @ 1653,' Rec'd pt from the ED via stretcher at 1505- Rec'd pt with eyes closed but does open them to verbal/tactile stimuli. If you are right in front of her she somewhat will look at stimuli but no tracking. Pupils are
sluggish at 1mm. Arms and legs are contracted. No movement of extremities currently. Mouth swabbed - tongue is whitish. Pt only gives a sl moan with turning otherwise is non-verbal. ..'
Patient care note 02/17 @ 2014,' pt turned and repositioned oral care provided...opens eyes spontaneously, grinding teeth, does not do any purposeful movement. all safety precautions in place...'
Patient care note 02/18 @ 0,' Opens eyes spontaneously, no purposeful movement, no consistent tracking, h/o stroke. Dependent care, turns q2h. ..'
Documented per rehab panel,' Previous functional ability -dependent ..'
Please provide in your note the diagnosis associated with the pts functional status:
Functional Quadriplegia -complete immobility due to severe physical disability or fragility
Weakness only
Other ( please specify)
Use of terms such as suspected, likely, concern for, or probable (associated with a specific diagnosis that is being evaluated, monitored, or treated as if it exists) are acceptable and can be coded in the inpatient setting, when documented at the
time of discharge.
Thank you,
Natalia aPthak RN
CDI Specialist
[place] [facility]
Please use your independent medical judgment in providing your response.
--- NOTE | 2024-02-20 13:53 | W.PN.NEPH.HD ---
Assessment
-
Seen on HD. no new changes. noncommunicative. VSS< access ok
Progress Note - Hemodialysis
-
Date of Service: February 20, 2024
Duration: 30 minutes and 3 hours
Potassium Bath: 3
Calcium Bath: 2.5
Opti-Dialyzer: 160
Ultrafiltration: Other (2kg)
Blood Flow: 400
Dialysate Flow: 600
Heparin: no
EPO: 6000 units
[2024-02-20] MEDS: RETACRIT 6000 UNITS IV (14:09)
--- NOTE | 2024-02-20 14:50 | PTCARENOTE ---
Addendum entered by Pat Gusman 02/20/24 18:27:
Dietary order completed, no TF recs received. Dr Mancia notified, no orders received at this time.
Original Note:
Pt noted to still have NPO orders. Dr. Mancia notified, awaiting order for dietary consult and TF orders.
[2024-02-20] MEDS: VANCOCIN 150 IV (15:01)
--- NOTE | 2024-02-20 16:06 | W.PN.HOSP.TC ---
Addendum entered and electronically signed by Rohan Mancia MD 02/21/24 11:01:
Wound Location and type/assessment: Patient known to service, admitted with: Sacral unstageable PI suspect stage 4, eschar gold, soft and boggy with a foul odor. L posterior thigh/ischium with stage 2 vs 3 PI. B/L ear rims with stage 2 PI's.
Addendum entered and electronically signed by Rohan Mancia MD 02/20/24 17:42:
Functional Quadriplegia -complete immobility due to severe physical disability or fragility
Anemia, Unable to determine source at this time
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
Original Note:
Today's Communication/Plan
-
iv abx
f/u cultures including wound, cdiff
monitor hgb for restarting asa, eliquis
HD as per renal
Hepatitis panel
Assessment / Plan
Assessment / Plan
Physical Exam
General: Well Developed, Well Nourished and No Apparent Distress
HEENT: NormoCephalic, Moist mucous membranes and Atraumatic
Respiratory: Clear
Cardiac: S1/S2 and Regular Rhythm; No Murmur or Rub
GI: Soft, Non Tender, Non Distended and Normal Bowel Sounds; No Organomegaly
Rectal: Deferred by Provider
Musculoskeletal: No Clubbing, No Cyanosis and No Edema
Skin: Rash and Decubitus Ulcers (sacral)
Neuro: Nonfocal/grossly intact
# Acute on chronic anemia likely from upper GI bleed on anticoagulants v CKD
-Hold Eliquis
-Hemoglobin 5.8 upon admission
-cont to monitor cbc
-maintain hgb >7
- EGD: Esophagitis, no bleeding, clean based ulcer
-Use Protonix (pantoprazole) 40 mg PO BID for 8 weeks followed by once daily.
-can restart feeds
-GI consulted
Colonoscopy 12/27/2023: No source of bleeding multiple polypectomies proximal ascending colon, sigmoid colon removed with snare, internal hemorrhoids all benign neoplasm
#Sepsis
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
#Proctitis
-sharp excisional debridement performed with cautery and scissors 02/18
-WBC 48.2
-iv Zosyn,vanco continued
-wound care consulted
-Cdiff f/u, f/u blood cultures
-no underlying abscess on CT imaging although possible proctitis
#Hypokalemia
-monitor and replete
#Transaminitis
-ruq sono unremarkable
-Hep panel pending
-hold statin
# nodular parenchymal scarring suspected in the superior segment of the right lower lobe.
-Consider follow-up in one year if the patient is at increased risk.
# History of CVA
-asa held - resume sergio if hgb remains stable
# Paroxysmal A-fib
-HR controlled
-obtain EKG
-hold eliquis
# end-stage renal disease on dialysis
# Hyponatremia/hypokalemia/metabolic acidosis
-nephrology consulted
# Type 2 diabetes with hyperglycemia
-Blood sugar elevated in 300s
-sliding scale continued
#Dysphagia status post PEG tube
-All meds via PEG tube
-TF held due to GI bleed
-nutrition consult
HTN�benign multidrug-resistant
-Continue Norvasc 10 mg, clonidine transdermal patch, hydralazine 50 mg every 8h, losartan 100 mg
-CTM
#Hx CVA with immobility, dysphagia
#Seizure disorder
- hx EEG 01/04/24 no seizures
-Continue Vimpat 100 mg twice daily
#Dementia�severe
Keep head of bed raised to 30 degrees at all times
-May suction secretions
#CAD prior NSTEMI,
#DVT prophylaxis
SCDs
#CODE STATUS:
-Full code
Total time spent on today's encounter was 51 minutes which included time spent in counseling the patient/family regarding diagnosis and treatment plan as listed above, goals of care, and symptom management. Case was discussed with nursing staff,
specialists, and care coordinators/case management. All labs and imaging personally reviewed by me. Remainder the time spent in detailed review of previous records, lab data, imaging, and other medical provider documentation.
Anticipated Discharge: > 48 hours
Subjective/Interval History
-
Date of Service: February 20, 2024
more awake today
Objective Data
-
Labs:
Laboratory Results
02/20/24
03:50
WBC 44.1 H*
Hgb 7.4 L D
Hct 20.6 L*
Plt Count 401 H
Sodium 136
Potassium 3.6
Chloride 102
Carbon Dioxide 20 L
BUN 78 H
Creatinine 2.7 H
Glucose 164 H
Calcium 8.1 L
Total Bilirubin 1.2
AST 215 H
ALT 152 H
Alkaline Phosphatase 176 H
Vital Signs:
Vital Signs
Temp Pulse Resp BP Pulse Ox
97.1 F 70 12 126/55 99
02/20/24 11:47 02/20/24 14:45 02/20/24 14:45 02/20/24 14:45 02/20/24 14:45
I&O
02/19/24 02/20/24 02/21/24
06:59 06:59 06:59
Intake Total 960 / 970 120 / 120
Balance 960 / 970 120 / 120
Review of Systems
-
History Source: Patient
All other systems: Not reviewed unless documented
Physical Exam
-
General: Well Developed, Well Nourished, No Apparent Distress and Comfortable
Respiratory: Decreased Breath Sounds
Cardiac: Regular Rhythm, S1/S2 and Murmur
GI: Soft, Nondistended and Peg Tube
Skin: Warm and Dry
Neuro: Awake, Alert and Other (gives simple one word answers)
Psych: Calm and Apparent Dementia; Negative Intact Judgement/Insight
Data Reviewed
-
Diagnostic Radiology: Report Reviewed by me
CT Scan: Image personally visualized and interpreted and Report Reviewed by me
Ultrasound: Report Reviewed by me
Labs: Labs Reviewed by me
[2024-02-20] MEDS: ZOSYN IV (16:33)
[2024-02-20 18:34] LABS: Glucose - Point of Care 134 mg/dl (70-99)
[2024-02-20] MEDS: NOVOLOG FLEXPEN-HIGH RESISTANCE SC (18:50)
--- NOTE | 2024-02-20 22:35 | PTCARENOTE ---
Pt received from previous RN. Pt nonverbal at baseline. Pt opens eyes to verbal and tactile stimuli. NSR on monitor. 99% on RA. Q2T maintained. heels elevated. N/S @ 50ml/hr via right midline.
[2024-02-21] VITALS (23 sets, daily range): BP systolic 130–165; BP diastolic 41–66; BMI 24.7
[2024-02-21] MEDS: APRESOLINE 50 MG TUBE ×3 (00:15→17:00)
[2024-02-21] MEDS: ZOSYN 50 IV ×3 (00:15→17:00)
[2024-02-21 00:25] LABS: Glucose - Point of Care 129 mg/dl (70-99)
[2024-02-21] MEDS: DAKIN'S SOLUTION 0.125% 1/4 STRENGTH 473 ML TOPICAL ×2 (00:59→10:20)
[2024-02-21] MEDS: NOVOLOG FLEXPEN-HIGH RESISTANCE 1 UNITS SC ×4 (01:01→18:24)
[2024-02-21 05:57] LABS: Hematocrit 20.8 % (37.0-47.0); Hemoglobin 7.6 g/dL (12.0-16.0); Mean Corp Hgb Conc. 36.5 g/dL (33.0-37.0); Mean Corpuscular Hgb 30.6 pg (27.0-31.0); Mean Corpuscular Volume 83.9 fL (81.0-99.0); Mean Platelet Volume 9.7 fL (7.4-10.4); Platelet Count 416 10^3/uL (130-400); Red Blood Cell Count 2.48 10^6/uL (4.20-5.40); Red Cell Dist. Width 16.1 % (11.5-14.5); White Blood Cell Count 38.5 10^3/uL (4.8-10.8)
--- NOTE | 2024-02-21 06:07 | PTCARENOTE ---
AM hct 20.8. SENIOR [employer] SYSTEMS PROGRAMMER notified.
[2024-02-21 06:15] LABS: ALT (SGPT) 130 U/L (0-35); AST (SGOT) 147 U/L (14-36); Albumin 2.3 g/dl (3.5-5.0); Alkaline Phosphatase 195 U/L (38-126); Blood Urea Nitrogen 38 mg/dl (7-17); Calcium 7.9 mg/dl (8.4-10.2); Carbon Dioxide 25 mmol/L (22-30); Chloride 99 mmol/L (98-107); Estimated Creatinine Clearance 26 ml/min; Glucose 111 mg/dl (70-99); Potassium 3.6 mmol/L (3.5-5.1); Sodium 136 mmol/L (135-145); Total Protein 5.4 g/dl (6.3-8.2)
[2024-02-21] MEDS: NSS 1000 IV (06:16)
[2024-02-21 06:26] LABS: Glucose - Point of Care 139 mg/dl (70-99)
--- NOTE | 2024-02-21 08:50 | PHA.VAN.FU ---
Vancomycin Assessment / Plan
- Assessment
Hemodialysis Schedule: MWF
Last Hemodialysis performed: 02/19
WBC's are: Trending Down
Concomitant Antimicrobials: piperacillin/tazobactam
- Dosing Plan
Dosing by Level: Hold off on dosing today
- Monitoring Plan
Random Level: 02/21 prior to HD
- Follow Up
Pharmacy will continue to follow.
Vancomycin Follow UP
- -
Patient Age: 73
Patient Sex: Female
Vancomycin Day #: 4
Indication: Skin And Soft Tissue
Requesting Provider: Roxana Gonzales
Pertinent Antimicrobial Allergies:
no pertinent antimicrobial allergies
Height / Weight:
Height 5 ft 6 in
Actual Weight 69.3 kg
Pertinent Past Medical History: ESRD on HD MWF
- Vital Signs / Lab Results
Temp Pulse Resp BP Pulse Ox
97.8 F 71 11 140/48 98
02/21/24 05:27 02/21/24 07:00 02/21/24 07:00 02/21/24 07:00 02/21/24 07:00
Lab Results - Hematology
02/18/24 02/19/24 02/20/24
11:18 03:38 03:50
WBC 48.2 H* 49.8 H* 44.1 H*
Band Neutrophils 3
02/21/24
05:14
WBC 38.5 H
Band Neutrophils
Lab Results - Chemistry
02/18/24 02/19/24 02/20/24
11:18 03:38 03:50
BUN 133 H* 65 H 78 H
Creatinine 3.8 H 2.1 H 2.7 H
Estimated Creat Clear 12 22 17
Albumin 2.4 L 2.9 L 2.2 L
02/21/24
05:14
BUN 38 H
Creatinine 1.8 H
Estimated Creat Clear 26
Albumin 2.3 L
02/18/24 02/18/24
11:18 14:15
Lactic Acid 2.0 Cancelled
Microbiology Results
02/19/24 16:36 Blood Culture - Preliminary
Blood/Venous No Growth in 24 hours- Final report to follow
02/19/24 14:41 Anaerobic Culture - Preliminary
Sacral Culture pending. Anaerobic cultures are examined after 3
days incubation. Additional information to follow.
02/19/24 14:41 Wound Culture - Preliminary
Sacral Gram Stain - Preliminary
02/18/24 17:19 Wound Culture - Preliminary
Sacral Gram Stain - Preliminary
02/18/24 17:19 Wound Culture - Preliminary
Decubitis Ulcer Gram Stain - Preliminary
Therapeutic Drug Monitoring
Random Vancomycin 12.2 ug/ml 02/20/24 03:50
[2024-02-21] MEDS: FERROUS SULFATE ORAL LIQUID 300 MG TUBE (10:21)
[2024-02-21] MEDS: NSS (PRESERVATIVE FREE) 10 ML IV ×2 (10:22→20:50)
[2024-02-21] MEDS: NORVASC 10 MG TUBE (10:22)
[2024-02-21] MEDS: PROTONIX IV 40 MG IV ×2 (10:23→20:50)
[2024-02-21] MEDS: VIMPAT 100 MG TUBE ×2 (10:24→20:50)
--- NOTE | 2024-02-21 11:59 | W.PN.NEPH.PH ---
Today's Communication / Plan
-
HD tomorrow
Assessment/Plan
-
Assessment:
ESRD on HD tunneled dialysis catheter, [facility]
Acute on chronic anemia likely from upper GI bleed on anticoagulants
Infected sacral decub wound
leucocytosis
Paroxysmal A-fib
Type 2 diabetes with hyperglycemia
Elevated transaminase
Dysphagia status post PEG tube
HTN�benign multidrug-
Hx CVA with immobility, dysphagia
Seizure disorder
Dementia�severe
CAD prior NSTEMI
Hyponatremia
Plan:
A/w decub wound and low hb, GIB
metabolic parameters are acceptable
hb better post PRBC
gentle IVF while NPO, repalce k
for EGD today and also debridement of decub wound
BP are soft-would have holding parameters
abx per primary, dose renally
needs GOC discussion as she has multiple comorbidities and bedridden baseline
-
-
Date of Service: February 21, 2024
CC / HPI / ROS
-
Chief Complaint:
ESRD
History of Present Illness:
hgb down to 7.6
WBC slightly lower at 38.5
tolerated HD yesterday
BP stable
Review of Systems:
non verbal, on RA
Labs
-
Labs:
WBC 38.5 10^3/uL (4.8-10.8) H 02/21/24 05:14
RBC 2.48 10^6/uL (4.20-5.40) L 02/21/24 05:14
Hgb 7.6 g/dL (12.0-16.0) L 02/21/24 05:14
Hct 20.8 % (37.0-47.0) L* 02/21/24 05:14
Plt Count 416 10^3/uL (130-400) H 02/21/24 05:14
Sodium 136 mmol/L (135-145) 02/21/24 05:14
Potassium 3.6 mmol/L (3.5-5.1) 02/21/24 05:14
Chloride 99 mmol/L (98-107) 02/21/24 05:14
Carbon Dioxide 25 mmol/L (22-30) 02/21/24 05:14
BUN 38 mg/dl (7-17) H 02/21/24 05:14
Creatinine 1.8 mg/dL (0.6-1.0) H 02/21/24 05:14
eGFR 29.20 02/21/24 05:14
Glucose 111 mg/dl (70-99) H 02/21/24 05:14
Calcium 7.9 mg/dl (8.4-10.2) L 02/21/24 05:14
Albumin 2.3 g/dl (3.5-5.0) L 02/21/24 05:14
Physical Exam
-
Vital Signs:
Vital Signs
Temp Pulse Resp BP Pulse Ox
98.0 F 78 11 147/59 98
02/21/24 11:42 02/21/24 10:22 02/21/24 07:00 02/21/24 10:22 02/21/24 07:00
Cardiovascular:: Regular rate and rhythm
Respiratory:: Bilateral: Coarse
Lung Excursion:: Normal
Abdomen:: Nontender and Soft
Bowel Sounds:: Normal
Extremity Edema:: None: Bilateral:
[2024-02-21 12:15] LABS: Glucose - Point of Care 132 mg/dl (70-99)
[2024-02-21] MEDS: CATAPRES-TTS-1 0.1 MG TRANSDERM (12:43)
--- NOTE | 2024-02-21 13:55 | W.PN.HOSP.TC ---
Today's Communication/Plan
-
asa 81 and monitor cbc
EPO
abx
ID consulted
Assessment / Plan
Assessment / Plan
Physical Exam
General: Well Developed, Well Nourished and No Apparent Distress
HEENT: NormoCephalic, Moist mucous membranes and Atraumatic
Respiratory: Clear
Cardiac: S1/S2 and Regular Rhythm; No Murmur or Rub
GI: Soft, Non Tender, Non Distended and Normal Bowel Sounds; No Organomegaly
Rectal: Deferred by Provider
Musculoskeletal: No Clubbing, No Cyanosis and No Edema
Skin: Rash and Decubitus Ulcers (sacral)
Neuro: Nonfocal/grossly intact
# Acute on chronic anemia likely from upper GI bleed on anticoagulants v CKD
-Hold Eliquis
-Hemoglobin 5.8 upon admission
-EPO as per Renal
-cont to monitor cbc
-maintain hgb >7
- EGD: Esophagitis, no bleeding, clean based ulcer
-Use Protonix (pantoprazole) 40 mg PO BID for 8 weeks followed by once daily.
-can restart feeds
-GI consulted
Colonoscopy 12/27/2023: No source of bleeding multiple polypectomies proximal ascending colon, sigmoid colon removed with snare, internal hemorrhoids all benign neoplasm
-restart ASA and monitor
#Sepsis
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
#Proctitis
-sharp excisional debridement performed with cautery and scissors 02/18
-iv Zosyn,vanco continued - most likely can dc Vanc
-wound care consulted
-ID consulted
-Cdiff f/u, f/u blood cultures
-no underlying abscess on CT imaging although possible proctitis
#Hypokalemia
-monitor and replete
#Transaminitis
-ruq sono unremarkable
-Hep panel pending
-hold statin
# nodular parenchymal scarring suspected in the superior segment of the right lower lobe.
-Consider follow-up in one year if the patient is at increased risk.
# History of CVA
-resume asa and monitor cbc
# Paroxysmal A-fib
-HR controlled
-obtain EKG
-hold eliquis - monitor hgb while restarting asa
# end-stage renal disease on dialysis
# Hyponatremia/hypokalemia/metabolic acidosis
-nephrology consulted
# Type 2 diabetes with hyperglycemia
-Blood sugar elevated in 300s
-sliding scale continued
#Dysphagia status post PEG tube
-All meds via PEG tube
-TF held due to GI bleed
-nutrition consult
HTN�benign multidrug-resistant
-Continue Norvasc 10 mg, clonidine transdermal patch, hydralazine 50 mg every 8h, losartan 100 mg
-CTM
#Hx CVA with immobility, dysphagia
#Seizure disorder
- hx EEG 01/04/24 no seizures
-Continue Vimpat 100 mg twice daily
#Dementia�severe
Keep head of bed raised to 30 degrees at all times
-May suction secretions
#CAD prior NSTEMI,
#DVT prophylaxis
SCDs
#CODE STATUS:
-Full code
Total time spent on today's encounter was 52 minutes which included time spent in counseling the patient/family regarding diagnosis and treatment plan as listed above, goals of care, and symptom management. Case was discussed with nursing staff,
specialists, and care coordinators/case management. All labs and imaging personally reviewed by me. Remainder the time spent in detailed review of previous records, lab data, imaging, and other medical provider documentation.
Anticipated Discharge: > 48 hours
Subjective/Interval History
-
Date of Service: February 21, 2024
no acute events overnight
Objective Data
-
Labs:
Laboratory Results
02/21/24
05:14
WBC 38.5 H
Hgb 7.6 L
Hct 20.8 L*
Plt Count 416 H
Sodium 136
Potassium 3.6
Chloride 99
Carbon Dioxide 25
BUN 38 H
Creatinine 1.8 H
Glucose 111 H
Calcium 7.9 L
Total Bilirubin 1.0
AST 147 H
ALT 130 H
Alkaline Phosphatase 195 H
Vital Signs:
Vital Signs
Temp Pulse Resp BP Pulse Ox
98.0 F 73 12 143/58 98
02/21/24 11:42 02/21/24 12:00 02/21/24 12:00 02/21/24 12:00 02/21/24 12:00
I&O
02/20/24 02/21/24 02/22/24
06:59 06:59 06:59
Intake Total 120 / 120
Balance 120 / 120
Review of Systems
-
History Source: Patient
All other systems: Not reviewed unless documented
Data Reviewed
-
Diagnostic Radiology: Report Reviewed by me
CT Scan: Image personally visualized and interpreted and Report Reviewed by me
Ultrasound: Report Reviewed by me
Labs: Labs Reviewed by me
--- NOTE | 2024-02-21 15:51 | CON.ID ---
Consultation
-
Date/Time Consultation Requested: 02/21/2024 1403
Date/Time Consultation Performed: 02/21/2024 1544
Requesting Provider: Dr. Mancia
Performing Provider: Dr. Black
Reason for Consultation: Sepsis; sacral decubitus
Chief Complaint / Past History
History of Present Illness
Madeline Nettles is a 73 y.o. female with a complex medical history, including ESRD�HD, seizure disorder, advanced dementia and sacral decubitus. History is obtained from chart review alone, as the patient could not provide any meaningful history
for me.
The patient presented to [facility] ER on 02/17 from a local nursing facility secondary to abnormal labs. Evidently recent CBC revealed a significant leukocytosis, along with a significant anemia (Hb = 5.8). The patient was started on
empiric antibiotics. Hospital course has been significant for continuation of hemodialysis. The patient underwent sacral wound debridement yesterday. Wound cultures from the sacral wound showed at least 6 different organisms. Infectious Diseases
asked to comment upon further antimicrobial management.
Past History
Additional Past Medical History:
A-fib
NIDDM
ESRD�HD
Seizure disorder
Dementia
Dysphagia s/p PEG
Anemia
GERD
Hx CVA
Chronic diastolic CHF
HTN
Sacral decubitus
Allergy History:
adhesive tape Allergy (Verified 02/18/24 10:12)
Unknown
codeine Allergy (Verified 02/18/24 10:12)
Unknown
oxycodone Allergy (Verified 02/18/24 10:12)
Unknown
tramadol Allergy (Verified 02/18/24 10:12)
Unknown
Medications Reviewed: Yes
Current Antibiotics:
Zosyn 2.25 g IV every 8 hours
Vancomycin (dosed per pharmacy)
Social History
Tobacco: Non-Smoker
Alcohol: None
Drug: None
Personal:
Living: Halfway
Employment: Disabled
Family History
Family History: Unable to Obtain
Review of Systems
Vital Signs
Temp Pulse Resp BP Pulse Ox
98.0 F 73 12 143/58 98
02/21/24 15:49 02/21/24 12:00 02/21/24 12:00 02/21/24 12:00 02/21/24 12:00
Physical Exam
Physical Exam
Constitutional: Comfortable, Chronically Ill and Non-toxic
Eyes: No Conjunctival Hemorrhage and Sclera Anicteric
Oral: Other (Patient uncooperative with exam)
Lymph Nodes: Negative Lymphadenopathy
Cardiovascular: Irregular Rate and S1/S2; Negative S3/S4 or Murmur
Pulmonary: Coarse and Non Labored; Negative Wheezes or Rales
Gastrointestinal: Soft, Non Distended, Normal Bowel Sounds and Other (PEG tube in place.)
Genito-Urinary: Negative Castañeda
Extremities: Edema (1+); Negative Cyanosis or Erythema
Skin: Warm and Dry; Negative Rash or Jaundice
Wound: Other (Large sacral wound present. Currently dressed. No strikethrough. No current malodor. Prior wound care photos reviewed.)
Neurological: Other (Opens eyes, but nonverbal, and does not follow commands.)
Psychological: Calm
Lines: HD Cath
Lab / Diagnostic Study Results
02/21/24 05:14
02/21/24 05:14
Total Counted 100 02/18/24 11:18
Abs Neuts (Manual) 42.4 10^3/uL (1.4-6.5) H 02/18/24 11:18
Segmented Neutrophils 85 % (42-75) H 02/18/24 11:18
Band Neutrophils 3 % (0-3) 02/18/24 11:18
Lymphocytes (Manual) 2 % (20-51) L 02/18/24 11:18
PT 18.8 Sec (11.4-14.6) H 02/18/24 12:58
INR 1.59 02/18/24 12:58
Lactic Acid Cancelled 02/18/24 14:15
Microbiology Results
Micro:
02/19/24 14:41 Anaerobic Culture - Preliminary
Sacral Culture pending. Anaerobic cultures are examined after 3
days incubation. Additional information to follow.
02/19/24 14:41 Wound Culture - Preliminary
Sacral Gram Stain - Preliminary
02/18/24 17:19 Wound Culture - Final
Sacral Gram Stain - Final
02/18/24 17:19 Wound Culture - Final
Decubitis Ulcer Gram Stain - Final
02/19/24 16:36 Blood Culture - Preliminary
Blood/Venous No Growth in 24 hours- Final report to follow
Imaging:
02/20/2024 CT chest/abdomen/pelvis: No evidence of pneumonia. No acute inflammatory process within the abdomen. Findings suspicious for proctitis, but without acute diverticulitis. No CT evidence to suggest discitis or osteomyelitis.
Assessment / Plan
Large/extensive sacral decubiti
-S/p debridement
Marked leukocytosis
- likely 2* infection with a reactive component.
- improving
Transaminitis
A-fib
NIDDM
ESRD�HD
Seizure disorder
Dementia
Dysphagia s/p PEG
Anemia
GERD
Hx CVA
Chronic diastolic CHF
HTN
Recommendations:
Continue Zosyn for the present. Discontinue further vancomycin as MSSA isolated.
Continue with local care to the sacral decubiti, including Dakin's solution to decrease overall superficial bioburden.
Trend white count and temperature curve.
Wound culture noted to be markedly polymicrobial. Would follow with current therapy for now, and potentially reculture if not clinically improving.
Overall outlook appears essentially zero for any realistic recovery of a quality of life.
--- NOTE | 2024-02-21 17:30 | PTCARENOTE ---
Tube feedings started today at 1710 via peg tube. Nepro at 20 mls/hr with water flush 25 mls/hr. Goal feeding rate 50 mls/hr. Increase by 20 mls/hr every 8 hrs until goal reached. Vital signs stable, afebrile. SR on monitor. HD ordered for
tomorrow.
[2024-02-21 18:12] LABS: Glucose - Point of Care 143 mg/dl (70-99)
[2024-02-21 19:35] LABS: Hepatitis B Surface Antibody Negative; Hepatitis C Antibody Negative (Negative)
[2024-02-21] MEDS: DAKIN'S SOLUTION 0.125% 1/4 STRENGTH TOPICAL (21:03)
[2024-02-21 21:48] LABS: Haptoglobin 294 mg/dL (30-200)
[2024-02-22] VITALS (49 sets, daily range): BP systolic 126–173; BP diastolic 44–69; BMI 24.8
[2024-02-22 00:22] LABS: Glucose - Point of Care 210 mg/dl (70-99)
[2024-02-22] MEDS: APRESOLINE 50 MG TUBE ×4 (00:43→23:12)
[2024-02-22] MEDS: NOVOLOG FLEXPEN-HIGH RESISTANCE 4 UNITS SC (00:43)
[2024-02-22] MEDS: ZOSYN 50 IV ×4 (00:45→23:13)
[2024-02-22 05:43] LABS: ALT (SGPT) 80 U/L (0-35); AST (SGOT) 60 U/L (14-36); Albumin 2.3 g/dl (3.5-5.0); Alkaline Phosphatase 214 U/L (38-126); Blood Urea Nitrogen 47 mg/dl (7-17); Carbon Dioxide 23 mmol/L (22-30); Chloride 100 mmol/L (98-107); Estimated Creatinine Clearance 18 ml/min; Glucose 164 mg/dl (70-99); Potassium 3.5 mmol/L (3.5-5.1); Sodium 137 mmol/L (135-145); Total Bilirubin 0.8 mg/dl (0.2-1.3); Total Protein 5.5 g/dl (6.3-8.2); eGFR 19.69
[2024-02-22 05:45] LABS: Hematocrit 20.2 % (37.0-47.0); Mean Corp Hgb Conc. 34.7 g/dL (33.0-37.0); Mean Corpuscular Hgb 29.3 pg (27.0-31.0); Mean Corpuscular Volume 84.5 fL (81.0-99.0); Mean Platelet Volume 9.2 fL (7.4-10.4); Platelet Count 415 10^3/uL (130-400); Red Blood Cell Count 2.39 10^6/uL (4.20-5.40); Red Cell Dist. Width 17.3 % (11.5-14.5); White Blood Cell Count 28.3 10^3/uL (4.8-10.8)
[2024-02-22 05:47] LABS: Glucose - Point of Care 187 mg/dl (70-99)
--- NOTE | 2024-02-22 06:19 | PTCARENOTE ---
Critical lab received, Hgb 7, Hct 20.2. House provider notified via TT.
[2024-02-22] MEDS: NOVOLOG FLEXPEN-HIGH RESISTANCE 2 UNITS SC ×2 (06:29→13:27)
[2024-02-22] MEDS: FERROUS SULFATE ORAL LIQUID 300 MG TUBE (08:30)
[2024-02-22] MEDS: ASPIR LOW (ENTERIC COATED) 81 MG PO (08:30)
[2024-02-22] MEDS: PROTONIX IV 40 MG IV ×2 (08:31→20:48)
[2024-02-22] MEDS: NSS (PRESERVATIVE FREE) 10 ML IV ×2 (08:31→20:49)
[2024-02-22] MEDS: VIMPAT 100 MG TUBE ×2 (08:31→20:48)
[2024-02-22] MEDS: DAKIN'S SOLUTION 0.125% 1/4 STRENGTH 473 ML TOPICAL ×2 (08:39→20:49)
[2024-02-22] MEDS: APRESOLINE TUBE (08:39)
[2024-02-22] MEDS: NORVASC TUBE (08:39)
[2024-02-22] MEDS: RETACRIT 10000 UNITS IV (09:26)
--- NOTE | 2024-02-22 10:59 | W.PN.ID1 ---
Date of Service
Date of Service: February 22, 2024
Today's Communication
Continue Zosyn.
Assessment / Plan
Large/extensive sacral decubiti
-S/p debridement
Marked leukocytosis
- likely 2* infection with a reactive component.
- improving
Transaminitis
A-fib
NIDDM
ESRD�HD
Seizure disorder
Dementia
Dysphagia s/p PEG
Anemia
GERD
Hx CVA
Chronic diastolic CHF
HTN
Recommendations:
Continue Zosyn.
Continue with local care to the sacral decubiti, including Dakin's solution to decrease overall superficial bioburden.
Trend white count and temperature curve.
Wound culture noted to be markedly polymicrobial, work-up in progress.
Chief Complaint
-: Leukocytosis
Subjective / Review of Systems
Seen while on dialysis.
Pt reports no pain.
Vital Signs / Physical Exam
Vital Signs
Vital Signs
Temp Pulse Resp BP Pulse Ox
98.5 F 73 10 165/65 97
02/22/24 07:10 02/22/24 07:30 02/22/24 07:30 02/22/24 07:30 02/22/24 07:49
Physical Exam
Constitutional: No Acute Distress
Pulmonary: Clear (anteriorly)
Gastrointestinal: Soft, Non Tender, Non Distended and Normal Bowel Sounds
Neurological: Awake and Alert
Lines: Other (LCW HD cath no erythema)
Objective Data
Lab Data
Lab Results
02/22/24 05:01
02/22/24 05:01
PT 18.8 Sec (11.4-14.6) H 02/18/24 12:58
INR 1.59 02/18/24 12:58
APTT 35.1 Sec (23.4-35.0) H 02/18/24 12:58
Estimated Creat Clear 18 ml/min 02/22/24 05:01
Lactic Acid Cancelled 02/18/24 14:15
Total Bilirubin 0.8 mg/dl (0.2-1.3) 02/22/24 05:01
AST 60 U/L (14-36) H 02/22/24 05:01
ALT 80 U/L (0-35) H 02/22/24 05:01
Alkaline Phosphatase 214 U/L (38-126) H 02/22/24 05:01
Most recent labs reviewed.
Micro Results:
02/19/24 14:41 Wound Culture - Preliminary
Sacral Gram Stain - Preliminary
02/19/24 14:41 Anaerobic Culture - Preliminary
Sacral Culture pending. Anaerobic cultures are examined after 3
days incubation. Additional information to follow.
02/21/24 21:48 C. difficile GDH Antigen & Toxins - Final
Feces/Stool Negative for toxigenic C.difficile
02/19/24 16:36 Blood Culture - Preliminary
Blood/Venous No Growth in 48 hours- Final report to follow
02/18/24 17:19 Wound Culture - Final
Sacral Gram Stain - Final
02/18/24 17:19 Wound Culture - Final
Decubitis Ulcer Gram Stain - Final
Imaging:
02/20/2024 CT chest/abdomen/pelvis: No evidence of pneumonia. No acute inflammatory process within the abdomen. Findings suspicious for proctitis, but without acute diverticulitis. No CT evidence to suggest discitis or osteomyelitis.
[2024-02-22] MEDS: HEPARIN 2000 UNITS INTRACATH (11:43)
--- NOTE | 2024-02-22 11:48 | W.PN.NEPH.HD ---
Assessment
-
pt seen during HD
vitals stable SBP 146
prn transfusion per primary hb 7
UF as tolerates
CVC functions well
Progress Note - Hemodialysis
-
Date of Service: February 22, 2024
Duration: 30 minutes and 3 hours
Potassium Bath: 3
Calcium Bath: 2.5
Opti-Dialyzer: 160
Ultrafiltration: Other (2-2.5kg)
Blood Flow: 400
Dialysate Flow: 600
Heparin: no
EPO: 25600
[2024-02-22 12:28] LABS: Glucose - Point of Care 185 mg/dl (70-99)
[2024-02-22] MEDS: NORVASC 10 MG TUBE (13:32)
--- NOTE | 2024-02-22 14:33 | W.PN.HOSP.TC ---
Today's Communication/Plan
-
HD, EPO
Monitor CBC while on ASA
cont zosyn
Assessment / Plan
Assessment / Plan
Physical Exam
General: Well Developed, Well Nourished and No Apparent Distress
HEENT: NormoCephalic, Moist mucous membranes and Atraumatic
Respiratory: Clear
Cardiac: S1/S2 and Regular Rhythm; No Murmur or Rub
GI: Soft, Non Tender, Non Distended and Normal Bowel Sounds; No Organomegaly
Rectal: Deferred by Provider
Musculoskeletal: No Clubbing, No Cyanosis and No Edema
Skin: Rash and Decubitus Ulcers (sacral)
Neuro: Nonfocal/grossly intact
# Acute on chronic anemia likely from upper GI bleed on anticoagulants v CKD
-Hold Eliquis
-Hemoglobin 5.8 upon admission
-EPO as per Renal
-cont to monitor cbc
-maintain hgb >7
- EGD: Esophagitis, no bleeding, clean based ulcer
-Use Protonix (pantoprazole) 40 mg PO BID for 8 weeks followed by once daily.
-can restart feeds
-GI consulted
-Colonoscopy 12/27/2023: No source of bleeding multiple polypectomies proximal ascending colon, sigmoid colon removed with snare, internal hemorrhoids all benign neoplasm
-restarted ASA 02/20 and monitor - if Hgb continues to drop tomorrow - will -re-engage GI
#Sepsis
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
#Proctitis
-sharp excisional debridement performed with cautery and scissors 02/18
-iv Zosyn
-wound care consulted
-ID consulted
-Cdiff f/u, f/u blood cultures
-no underlying abscess on CT imaging although possible proctitis
#Hypokalemia
-monitor and replete
#Transaminitis
-most likely 2/2 to sepsis
-ruq sono unremarkable
-Hep panel pending
-hold statin
# nodular parenchymal scarring suspected in the superior segment of the right lower lobe.
-Consider follow-up in one year if the patient is at increased risk.
# History of CVA
-resume asa and monitor cbc
# Paroxysmal A-fib
-HR controlled
-obtain EKG
-hold eliquis - monitor hgb while restarting asa
# end-stage renal disease on dialysis
# Hyponatremia/hypokalemia/metabolic acidosis
-nephrology consulted
# Type 2 diabetes with hyperglycemia
-Blood sugar elevated in 300s
-sliding scale continued
#Dysphagia status post PEG tube
-All meds via PEG tube
-TF held due to GI bleed
-nutrition consult
HTN�benign multidrug-resistant
-Continue Norvasc 10 mg, clonidine transdermal patch, hydralazine 50 mg every 8h, losartan 100 mg
-CTM
#Hx CVA with immobility, dysphagia
#Seizure disorder
- hx EEG 01/04/24 no seizures
-Continue Vimpat 100 mg twice daily
#Dementia�severe
Keep head of bed raised to 30 degrees at all times
-May suction secretions
#CAD prior NSTEMI,
#DVT prophylaxis
SCDs
#CODE STATUS:
-Full code
Anticipated Discharge: 24 - 48 hours
Subjective/Interval History
-
Date of Service: February 22, 2024
no acute events
Objective Data
-
Labs:
Laboratory Results
02/22/24
05:01
WBC 28.3 H
Hgb 7.0 L
Hct 20.2 L*
Plt Count 415 H
Sodium 137
Potassium 3.5
Chloride 100
Carbon Dioxide 23
BUN 47 H
Creatinine 2.5 H
Glucose 164 H
Calcium 8.0 L
Total Bilirubin 0.8
AST 60 H
ALT 80 H
Alkaline Phosphatase 214 H
Vital Signs:
Vital Signs
Temp Pulse Resp BP Pulse Ox
97.8 F 69 11 161/54 95
02/22/24 11:13 02/22/24 13:00 02/22/24 13:00 02/22/24 13:32 02/22/24 13:56
I&O
02/21/24 02/22/24 02/23/24
06:59 06:59 06:59
Intake Total 740 / 740
Output Total 0 / 0
Balance 740 / 740
Review of Systems
-
History Source: Patient
All other systems: Not reviewed unless documented
Data Reviewed
-
Diagnostic Radiology: Report Reviewed by me
CT Scan: Image personally visualized and interpreted and Report Reviewed by me
Ultrasound: Report Reviewed by me
Labs: Labs Reviewed by me
--- NOTE | 2024-02-22 15:49 | CM ---
Patient from [facility] with Hx ESRD on HD, dementia, sacral decub, PEG feeds with Dx Acute on chronic anemia likely from upper GI bleed, sepsis, Large stage IV sacral wound with purulence/necrotic tissue/exposed coccyx s/p debridement,
Proctitis. Room air. Receiving IV Abx. Tube feedings. Seen by wound care nurse. Per nursing; non-verbal, bedrest.
Spoke with Nayeli Rocha & JAEL Samuels [facility]; they clarified information that is different from initial CM notes: The patient is not in LTC or on an MA bed hold. The patient is there for short term rehab under her [facility], not on a bed hold, and
they have not applied for MA yet. She has about 40 Medicare days left. They are able to accept the patient back when medically ready. The for report [phone], fax [phone].
Plan contact /daughter prior to return to SNF.
Plan return to [facility] when medically ready.
--- NOTE | 2024-02-22 17:22 | PTCARENOTE ---
Pt presents as assessed. Order for one unit PRBC's canceled by . Pt incontinent of gross amounts of liquid stool. Rectal trumpet inserted in attempt to protect wounds. Wound care completed, see intervention. Q2T maintained.
[2024-02-22 18:29] LABS: Glucose - Point of Care 260 mg/dl (70-99)
[2024-02-22] MEDS: NOVOLOG FLEXPEN-HIGH RESISTANCE 7 UNITS SC ×2 (18:44→23:18)
[2024-02-22 23:26] LABS: Glucose - Point of Care 275 mg/dl (70-99)
[2024-02-23] VITALS (21 sets, daily range): BP systolic 139–177; BP diastolic 48–63; BMI 24.4
--- NOTE | 2024-02-23 04:09 | PTCARENOTE ---
Assume care from AM RN. AAOX1. nonverbal. Pt is able to nod head if asked if her name is Madeline and squeeze her left hand. Pt opens her mouth when asked to do mouth care. Assessment done and charted. Pt has been tolerating TF at 50 ml/hr. Q2 turn.
Rectal trumped is intact. Will cont with treatment plan.
[2024-02-23] MEDS: NOVOLOG FLEXPEN-HIGH RESISTANCE 7 UNITS SC ×3 (05:10→23:25)
[2024-02-23 05:18] LABS: Glucose - Point of Care 288 mg/dl (70-99)
[2024-02-23 05:40] LABS: Hematocrit 20.2 % (37.0-47.0); Hemoglobin 6.8 g/dL (12.0-16.0); Mean Corp Hgb Conc. 33.7 g/dL (33.0-37.0); Mean Corpuscular Hgb 28.9 pg (27.0-31.0); Mean Platelet Volume 9.3 fL (7.4-10.4); Platelet Count 385 10^3/uL (130-400); Red Blood Cell Count 2.35 10^6/uL (4.20-5.40); Red Cell Dist. Width 17.3 % (11.5-14.5); White Blood Cell Count 23.1 10^3/uL (4.8-10.8)
[2024-02-23 05:53] LABS: ALT (SGPT) 51 U/L (0-35); AST (SGOT) 33 U/L (14-36); Albumin 2.3 g/dl (3.5-5.0); Alkaline Phosphatase 212 U/L (38-126); Blood Urea Nitrogen 30 mg/dl (7-17); Calcium 8.1 mg/dl (8.4-10.2); Carbon Dioxide 29 mmol/L (22-30); Chloride 97 mmol/L (98-107); Estimated Creatinine Clearance 26 ml/min; Glucose 261 mg/dl (70-99); Potassium 3.4 mmol/L (3.5-5.1); Sodium 134 mmol/L (135-145); Total Bilirubin 0.5 mg/dl (0.2-1.3); Total Protein 5.4 g/dl (6.3-8.2)
--- NOTE | 2024-02-23 06:15 | W.PN.UPDATE ---
Update Note
Progress Note Update
Hgb dropped down from 7 to 6.8 this morning. No signs of bleeding and vital signs within normal level. One unit of blood ordered.
[2024-02-23 06:16] LABS: Glucose - Point of Care 270 mg/dl (70-99)
[2024-02-23] MEDS: ASPIR LOW (ENTERIC COATED) 81 MG PO (07:27)
[2024-02-23] MEDS: APRESOLINE 50 MG TUBE ×3 (07:28→23:24)
[2024-02-23] MEDS: ZOSYN 50 IV ×3 (07:28→23:24)
[2024-02-23] MEDS: PROTONIX IV 40 MG IV ×2 (07:28→20:31)
[2024-02-23] MEDS: NORVASC 10 MG TUBE (07:28)
[2024-02-23] MEDS: VIMPAT 100 MG TUBE ×2 (07:28→20:31)
[2024-02-23] MEDS: FERROUS SULFATE ORAL LIQUID 300 MG TUBE (07:28)
[2024-02-23] MEDS: NSS (PRESERVATIVE FREE) 10 ML IV ×2 (07:28→20:31)
[2024-02-23] MEDS: DAKIN'S SOLUTION 0.125% 1/4 STRENGTH 473 ML TOPICAL ×2 (07:29→20:31)
[2024-02-23] MEDS: KCL ELIXIR 40 MEQ PO (09:06)
--- NOTE | 2024-02-23 10:37 | W.PN.ID1 ---
Date of Service
Date of Service: February 23, 2024
Today's Communication
continue zoysn
Assessment / Plan
Large/extensive sacral decubiti
-S/p debridement
Marked leukocytosis
- likely 2* infection with a reactive component.
- improving
Transaminitis
A-fib
NIDDM
ESRD�HD
Seizure disorder
Dementia
Dysphagia s/p PEG
Anemia
GERD
Hx CVA
Chronic diastolic CHF
HTN
Recommendations:
afebrile, declining leukocytosis and resolved thrombocytosis
offloading of the wound as feasible - turns q2 hours
Continue Zosyn.
Continue with local care to the sacral decubiti, including Dakin's solution to decrease overall superficial bioburden.
Trend white count and temperature curve.
Wound culture noted to be markedly polymicrobial, work-up in progress.
Medium term prognosis grim, expect recurrent hospitalizations
Chief Complaint
-: Leukocytosis
Subjective / Review of Systems
afebrile
bp stable
Vital Signs / Physical Exam
Vital Signs
Vital Signs
Temp Pulse Resp BP Pulse Ox
97.9 F 64 9 165/52 97
02/23/24 07:05 02/23/24 07:28 02/23/24 04:00 02/23/24 07:28 02/23/24 07:51
Physical Exam
Constitutional: No Acute Distress
Cardiovascular: Regular Rate and S1/S2; Negative Murmur or Rub
Pulmonary: Clear and Symmetric; Negative Wheezes or Rales
Gastrointestinal: Soft, Non Tender, Non Distended and Normal Bowel Sounds
Skin: Warm and Dry; Negative Rash or Jaundice
Wound: Other (deferred turning patient)
Lines: Other (tunneled HD cath - no erythema, warmth tenderness or drainage)
Objective Data
Lab Data
Lab Results
02/23/24 05:06
02/23/24 05:06
PT 18.8 Sec (11.4-14.6) H 02/18/24 12:58
INR 1.59 02/18/24 12:58
APTT 35.1 Sec (23.4-35.0) H 02/18/24 12:58
Estimated Creat Clear 26 ml/min 02/23/24 05:06
Lactic Acid Cancelled 02/18/24 14:15
Total Bilirubin 0.5 mg/dl (0.2-1.3) 02/23/24 05:06
AST 33 U/L (14-36) 02/23/24 05:06
ALT 51 U/L (0-35) H 02/23/24 05:06
Alkaline Phosphatase 212 U/L (38-126) H 02/23/24 05:06
Most recent labs reviewed.
Micro Results:
02/19/24 14:41 Wound Culture - Preliminary
Sacral Escherichia coli
Proteus mirabilis
Gram negative bacilli
Enterococcus species
Gram Stain - Preliminary
02/19/24 16:36 Blood Culture - Preliminary
Blood/Venous No Growth in 72 hours- Final report to follow
02/19/24 14:41 Anaerobic Culture - Preliminary
Sacral Culture pending. Anaerobic cultures are examined after 3
days incubation. Additional information to follow.
02/21/24 21:48 C. difficile GDH Antigen & Toxins - Final
Feces/Stool Negative for toxigenic C.difficile
02/18/24 17:19 Wound Culture - Final
Sacral Gram Stain - Final
02/18/24 17:19 Wound Culture - Final
Decubitis Ulcer Gram Stain - Final
Imaging:
02/20/2024 CT chest/abdomen/pelvis: No evidence of pneumonia. No acute inflammatory process within the abdomen. Findings suspicious for proctitis, but without acute diverticulitis. No CT evidence to suggest discitis or osteomyelitis.
--- NOTE | 2024-02-23 11:06 | W.PN.NEPH.PH ---
Today's Communication / Plan
-
HD on Sunday
Assessment/Plan
-
Assessment:
ESRD on HD tunneled dialysis catheter, [facility]
Acute on chronic anemia likely from upper GI bleed on anticoagulants
Infected sacral decub wound
leucocytosis
Paroxysmal A-fib
Type 2 diabetes with hyperglycemia
Elevated transaminase
Dysphagia status post PEG tube
HTN�benign multidrug-
Hx CVA with immobility, dysphagia
Seizure disorder
Dementia�severe
CAD prior NSTEMI
Hyponatremia
Plan:
A/w decub wound and low hb, GIB
likely for transfusion today for hb 6.8
tolerating TF, decrease FWF to 10cc/hr for evolving hyponatremia
replace k
BP are increasing trend, resumed ARB, cont home meds
next HD on Sunday
-
-
Date of Service: February 23, 2024
CC / HPI / ROS
-
Chief Complaint:
ESRD
History of Present Illness:
hgb down to 6.8
WBC better at 23k, k low 3.4
tolerated HD yesterday
BP increasing trend
Review of Systems:
non verbal, on RA
Labs
-
Labs:
WBC 23.1 10^3/uL (4.8-10.8) H 02/23/24 05:06
RBC 2.35 10^6/uL (4.20-5.40) L 02/23/24 05:06
Hgb 6.8 g/dL (12.0-16.0) L* 02/23/24 05:06
Hct 20.2 % (37.0-47.0) L* 02/23/24 05:06
Plt Count 385 10^3/uL (130-400) 02/23/24 05:06
Sodium 134 mmol/L (135-145) L 02/23/24 05:06
Potassium 3.4 mmol/L (3.5-5.1) L 02/23/24 05:06
Chloride 97 mmol/L (98-107) L 02/23/24 05:06
Carbon Dioxide 29 mmol/L (22-30) 02/23/24 05:06
BUN 30 mg/dl (7-17) H 02/23/24 05:06
Creatinine 1.8 mg/dL (0.6-1.0) H 02/23/24 05:06
eGFR 29.20 02/23/24 05:06
Glucose 261 mg/dl (70-99) H 02/23/24 05:06
Calcium 8.1 mg/dl (8.4-10.2) L 02/23/24 05:06
Albumin 2.3 g/dl (3.5-5.0) L 02/23/24 05:06
Physical Exam
-
Vital Signs:
Vital Signs
Temp Pulse Resp BP Pulse Ox
97.9 F 60 9 175/57 100
02/23/24 07:05 02/23/24 10:01 02/23/24 10:01 02/23/24 10:01 02/23/24 10:01
Cardiovascular:: Regular rate and rhythm
Respiratory:: Bilateral: CTA
Lung Excursion:: Normal
Abdomen:: Nontender and Soft
Extremity Edema:: +1: Bilateral:
Castañeda Catheter: No
[2024-02-23] MEDS: COZAAR 100 MG PO (11:33)
[2024-02-23] MEDS: NOVOLOG FLEXPEN-HIGH RESISTANCE 4 UNITS SC (11:36)
[2024-02-23 11:47] LABS: Glucose - Point of Care 235 mg/dl (70-99)
[2024-02-23 12:42] LABS: Glucose - Point of Care 258 mg/dl (70-99)
--- NOTE | 2024-02-23 13:29 | W.PN.HOSP.TC ---
Today's Communication/Plan
-
transfuse, monitor CBC - if continued drop - will have to re-engage GI
cont abx
Assessment / Plan
Assessment / Plan
Physical Exam
General: Well Developed, Well Nourished and No Apparent Distress
HEENT: NormoCephalic, Moist mucous membranes and Atraumatic
Respiratory: Clear
Cardiac: S1/S2 and Regular Rhythm; No Murmur or Rub
GI: Soft, Non Tender, Non Distended and Normal Bowel Sounds; No Organomegaly
Rectal: Deferred by Provider
Musculoskeletal: No Clubbing, No Cyanosis and No Edema
Skin: Rash and Decubitus Ulcers (sacral)
Neuro: Nonfocal/grossly intact
# Acute on chronic anemia likely from upper GI bleed on anticoagulants v CKD
-Hold Eliquis
-Hemoglobin 5.8 upon admission, transfused. Will have to transfuse again 1 unit today 02/22
-EPO as per Renal
-cont to monitor cbc
-maintain hgb >7
- EGD: Esophagitis, no bleeding, clean based ulcer
-Use Protonix (pantoprazole) 40 mg PO BID for 8 weeks followed by once daily.
-can restart feeds
-GI consulted -signed off; if continuing to have drop in hemoglobin, will need to reengage GI
-Colonoscopy 12/27/2023: No source of bleeding multiple polypectomies proximal ascending colon, sigmoid colon removed with snare, internal hemorrhoids all benign neoplasm
-restarted ASA 02/20 and monitor - if Hgb continues to drop - will -re-engage GI
#Sepsis
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
#Proctitis
-sharp excisional debridement performed with cautery and scissors 02/18
-iv Zosyn
-wound care consulted
-ID consulted
-Cdiff f/u, f/u blood cultures
-no underlying abscess on CT imaging although possible proctitis
#Hyponatremia
-cont hd
#Hypokalemia
-monitor and replete
#Transaminitis
-most likely 2/2 to sepsis
-ruq sono unremarkable
-Hep panel pending
-hold statin
# nodular parenchymal scarring suspected in the superior segment of the right lower lobe.
-Consider follow-up in one year if the patient is at increased risk.
# History of CVA
-resume asa and monitor cbc
# Paroxysmal A-fib
-HR controlled
-obtain EKG
-hold eliquis - monitor hgb while restarting asa
# end-stage renal disease on dialysis
# Hyponatremia/hypokalemia/metabolic acidosis
-nephrology consulted
# Type 2 diabetes with hyperglycemia
-Blood sugar elevated in 300s
-sliding scale continued
#Dysphagia status post PEG tube
-All meds via PEG tube
-TF held due to GI bleed
-nutrition consult
HTN�benign multidrug-resistant
-Continue Norvasc 10 mg, clonidine transdermal patch, hydralazine 50 mg every 8h, losartan 100 mg
-CTM
#Hx CVA with immobility, dysphagia
#Seizure disorder
- hx EEG 01/04/24 no seizures
-Continue Vimpat 100 mg twice daily
#Dementia�severe
Keep head of bed raised to 30 degrees at all times
-May suction secretions
#CAD prior NSTEMI,
#DVT prophylaxis
SCDs
#CODE STATUS:
-Full code
Total time spent on today's encounter was 50 minutes which included time spent in counseling the patient/family regarding diagnosis and treatment plan as listed above, goals of care, and symptom management. Case was discussed with nursing staff,
specialists, and care coordinators/case management. All labs and imaging personally reviewed by me. Remainder the time spent in detailed review of previous records, lab data, imaging, and other medical provider documentation.
Anticipated Discharge: Within 24 hours
Subjective/Interval History
-
Date of Service: February 23, 2024
No acute events, hemoglobin dropped to 6.8
Objective Data
-
Labs:
Laboratory Results
02/23/24
05:06
WBC 23.1 H
Hgb 6.8 L*
Hct 20.2 L*
Plt Count 385
Sodium 134 L
Potassium 3.4 L
Chloride 97 L
Carbon Dioxide 29
BUN 30 H
Creatinine 1.8 H
Glucose 261 H
Calcium 8.1 L
Total Bilirubin 0.5
AST 33
ALT 51 H
Alkaline Phosphatase 212 H
Vital Signs:
Vital Signs
Temp Pulse Resp BP Pulse Ox
98.0 F 58 11 153/52 100
02/23/24 11:29 02/23/24 11:33 02/23/24 11:29 02/23/24 11:33 02/23/24 10:01
I&O
02/22/24 02/23/24 02/24/24
06:59 06:59 06:59
Intake Total 740 / 740 960 / 960 0 / 0
Output Total 0 / 0
Balance 740 / 740 960 / 960 0 / 0
Review of Systems
-
History Source: Patient
All other systems: Not reviewed unless documented
Physical Exam
-
General: Well Developed, Well Nourished, No Apparent Distress and Comfortable
Respiratory: Decreased Breath Sounds
Cardiac: Regular Rhythm, S1/S2 and Murmur
GI: Soft, Nondistended and Peg Tube
Skin: Warm and Dry
Neuro: Awake, Alert and Other (gives simple one word answers)
Psych: Calm and Apparent Dementia; Negative Intact Judgement/Insight
Data Reviewed
-
Diagnostic Radiology: Report Reviewed by me
CT Scan: Image personally visualized and interpreted and Report Reviewed by me
Ultrasound: Report Reviewed by me
Labs: Labs Reviewed by me
--- NOTE | 2024-02-23 16:15 | PTCARENOTE ---
Assumed care of Pt at start of shift. Pt resting comfortably in bed on Left side. Rectal trumpet in place, draining effectively. Nepro running into PEG @ 50/hr with 25 flush. No residual; 1 Unit pRBC's infused into L midline as per order;
Non-verbal, but tracks and can appropriately nod to questions and follow simple commands. Wound care performed on large decub on sacrum - large amt of drainage; Pt tolerated well. Will continue to monitor and assess.
[2024-02-23 18:05] LABS: Glucose - Point of Care 262 mg/dl (70-99)
[2024-02-23 18:19] LABS: Glucose - Point of Care 279 mg/dl (70-99)
[2024-02-23 23:34] LABS: Glucose - Point of Care 277 mg/dl (70-99)
[2024-02-24] VITALS (16 sets, daily range): BP systolic 144–185; BP diastolic 45–113; BMI 25.1
[2024-02-24] MEDS: NOVOLOG FLEXPEN-HIGH RESISTANCE 4 UNITS SC (05:05)
[2024-02-24 05:18] LABS: Glucose - Point of Care 217 mg/dl (70-99)
--- NOTE | 2024-02-24 06:22 | PTCARENOTE ---
During hygiene care it was noted that pt had a DTI in the Left heel. Dressing changed.
[2024-02-24 06:32] LABS: Hematocrit 26.1 % (37.0-47.0); Hemoglobin 8.8 g/dL (12.0-16.0); Mean Corp Hgb Conc. 33.7 g/dL (33.0-37.0); Mean Corpuscular Hgb 28.3 pg (27.0-31.0); Mean Corpuscular Volume 83.9 fL (81.0-99.0); Mean Platelet Volume 9.4 fL (7.4-10.4); Platelet Count 416 10^3/uL (130-400); Red Blood Cell Count 3.11 10^6/uL (4.20-5.40); Red Cell Dist. Width 18.6 % (11.5-14.5); White Blood Cell Count 23.5 10^3/uL (4.8-10.8)
[2024-02-24] MEDS: APRESOLINE 50 MG TUBE (06:35)
[2024-02-24] MEDS: COZAAR 100 MG TUBE (06:37)
[2024-02-24] MEDS: NORVASC 10 MG TUBE (06:37)
[2024-02-24 06:49] LABS: ALT (SGPT) 44 U/L (0-35); AST (SGOT) 28 U/L (14-36); Albumin 2.7 g/dl (3.5-5.0); Alkaline Phosphatase 228 U/L (38-126); Blood Urea Nitrogen 43 mg/dl (7-17); Calcium 8.6 mg/dl (8.4-10.2); Carbon Dioxide 25 mmol/L (22-30); Chloride 98 mmol/L (98-107); Estimated Creatinine Clearance 19 ml/min; Glucose 184 mg/dl (70-99); Sodium 134 mmol/L (135-145); Total Bilirubin 0.5 mg/dl (0.2-1.3); eGFR 20.68
[2024-02-24] MEDS: NSS (PRESERVATIVE FREE) 10 ML IV ×2 (07:37→19:06)
[2024-02-24] MEDS: ASPIR LOW (ENTERIC COATED) 81 MG PO (07:37)
[2024-02-24] MEDS: VIMPAT 100 MG TUBE ×2 (07:37→19:07)
[2024-02-24] MEDS: ZOSYN 50 IV ×3 (07:37→23:18)
[2024-02-24] MEDS: FERROUS SULFATE ORAL LIQUID 300 MG TUBE (07:37)
[2024-02-24] MEDS: PROTONIX IV 40 MG IV ×2 (07:37→19:06)
[2024-02-24] MEDS: DAKIN'S SOLUTION 0.125% 1/4 STRENGTH 473 ML TOPICAL ×2 (07:38→19:07)
[2024-02-24] MEDS: ELIQUIS 5 MG TUBE ×2 (08:21→19:07)
--- NOTE | 2024-02-24 10:37 | W.PN.NEPH.PH ---
Today's Communication / Plan
-
HD tomorrow
Assessment/Plan
-
Assessment:
ESRD on HD tunneled dialysis catheter, [facility]
Acute on chronic anemia likely from upper GI bleed on anticoagulants
Infected sacral decub wound
leucocytosis
Paroxysmal A-fib
Type 2 diabetes with hyperglycemia
Elevated transaminase
Dysphagia status post PEG tube
HTN�benign multidrug-
Hx CVA with immobility, dysphagia
Seizure disorder
Dementia�severe
CAD prior NSTEMI
Hyponatremia
Plan:
A/w decub wound and low hb, GIB
hb better post pRBC
tolerating TF, off FWF hyponatremia
BP are increasing trend, cont home meds, increase hydralazine
next HD on Sunday
-
-
Date of Service: February 24, 2024
CC / HPI / ROS
-
Chief Complaint:
ESRD
History of Present Illness:
hgb better 8.8 post pRBC
WBC stable 23k, k better at 4
BP increasing trend
Review of Systems:
non verbal, on RA
Labs
-
Labs:
WBC 23.5 10^3/uL (4.8-10.8) H 02/24/24 05:34
RBC 3.11 10^6/uL (4.20-5.40) L 02/24/24 05:34
Hgb 8.8 g/dL (12.0-16.0) L D 02/24/24 05:34
Hct 26.1 % (37.0-47.0) L 02/24/24 05:34
Plt Count 416 10^3/uL (130-400) H 02/24/24 05:34
Sodium 134 mmol/L (135-145) L 02/24/24 05:34
Potassium 4.0 mmol/L (3.5-5.1) 02/24/24 05:34
Chloride 98 mmol/L (98-107) 02/24/24 05:34
Carbon Dioxide 25 mmol/L (22-30) 02/24/24 05:34
BUN 43 mg/dl (7-17) H 02/24/24 05:34
Creatinine 2.4 mg/dL (0.6-1.0) H 02/24/24 05:34
eGFR 20.68 02/24/24 05:34
Glucose 184 mg/dl (70-99) H 02/24/24 05:34
Calcium 8.6 mg/dl (8.4-10.2) 02/24/24 05:34
Albumin 2.7 g/dl (3.5-5.0) L 02/24/24 05:34
Physical Exam
-
Vital Signs:
Vital Signs
Temp Pulse Resp BP Pulse Ox
97.9 F 63 9 185/65 99
02/24/24 07:32 02/24/24 06:35 02/24/24 06:32 02/24/24 06:35 02/24/24 06:32
Cardiovascular:: Regular rate and rhythm
Respiratory:: Bilateral: CTA
Lung Excursion:: Normal
Abdomen:: Nontender and Soft
Extremity Edema:: None: Bilateral: (trace)
[place]añeda Catheter: No
[2024-02-24 12:48] LABS: Glucose - Point of Care 250 mg/dl (70-99)
--- NOTE | 2024-02-24 12:58 | W.PN.HOSP.TC ---
Today's Communication/Plan
-
restart eliquis, monitor hgb
cont zosyn, f/u wbc
Assessment / Plan
Assessment / Plan
Physical Exam
General: Well Developed, Well Nourished and No Apparent Distress
HEENT: NormoCephalic, Moist mucous membranes and Atraumatic
Respiratory: Clear
Cardiac: S1/S2 and Regular Rhythm; No Murmur or Rub
GI: Soft, Non Tender, Non Distended and Normal Bowel Sounds; No Organomegaly
Rectal: Deferred by Provider
Musculoskeletal: No Clubbing, No Cyanosis and No Edema
Skin: Rash and Decubitus Ulcers (sacral)
Neuro: Nonfocal/grossly intact
# Acute on chronic anemia likely from upper GI bleed on anticoagulants v CKD
-Resume Eliquis
-Hemoglobin 5.8 upon admission, transfused. transfused again 1 unit 02/22 - responded well
-EPO as per Renal
-cont to monitor cbc
-maintain hgb >7
- EGD: Esophagitis, no bleeding, clean based ulcer
-Use Protonix (pantoprazole) 40 mg PO BID for 8 weeks followed by once daily.
-can restart feeds
-GI consulted -signed off; if continuing to have drop in hemoglobin, will need to reengage GI
-Colonoscopy 12/27/2023: No source of bleeding multiple polypectomies proximal ascending colon, sigmoid colon removed with snare, internal hemorrhoids all benign neoplasm
-restarted ASA 02/20 and stable
-Restarted Eliquis 02/23 - monitor CBC
#Sepsis
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
#Proctitis
-sharp excisional debridement performed with cautery and scissors 02/18
-wound cultures growing E-Coli, Proteus Mirabilis, Morganella moranii, enterococcus faecalis
-iv Zosyn
-wound care consulted
-ID consulted
-Cdiff neg, blood culture neg
-no underlying abscess on CT imaging although possible proctitis
#Hyponatremia
-cont hd
#Hypokalemia
-monitor and replete
#Transaminitis
-most likely 2/2 to sepsis
-ruq sono unremarkable
-Hep soler neg
-hold statin
# nodular parenchymal scarring suspected in the superior segment of the right lower lobe.
-Consider follow-up in one year if the patient is at increased risk.
# History of CVA
-resume asa
# Paroxysmal A-fib
-HR controlled
-obtain EKG
-restart eliquis - monitor hgb
# end-stage renal disease on dialysis
# Hyponatremia/hypokalemia/metabolic acidosis
-nephrology consulted
# Type 2 diabetes with hyperglycemia
-Blood sugar elevated in 300s
-sliding scale continued
#Dysphagia status post PEG tube
-All meds via PEG tube
-TF held due to GI bleed
-nutrition consult
HTN�benign multidrug-resistant
-Continue Norvasc 10 mg, clonidine transdermal patch, hydralazine 50 mg every 8h, losartan 100 mg
-CTM
#Hx CVA with immobility, dysphagia
#Seizure disorder
- hx EEG 01/04/24 no seizures
-Continue Vimpat 100 mg twice daily
#Dementia�severe
Keep head of bed raised to 30 degrees at all times
-May suction secretions
#CAD prior NSTEMI,
#DVT prophylaxis
SCDs
#CODE STATUS:
-Full code
Total time spent on today's encounter was 51 minutes which included time spent in counseling the patient/family regarding diagnosis and treatment plan as listed above, goals of care, and symptom management. Case was discussed with nursing staff,
specialists, and care coordinators/case management. All labs and imaging personally reviewed by me. Remainder the time spent in detailed review of previous records, lab data, imaging, and other medical provider documentation.
Anticipated Discharge: Within 24 hours
Subjective/Interval History
-
Date of Service: February 24, 2024
No acute events, restart Eliquis as hemoglobin stated
Objective Data
-
Labs:
Laboratory Results
02/24/24
05:34
WBC 23.5 H
Hgb 8.8 L D
Hct 26.1 L
Plt Count 416 H
Sodium 134 L
Potassium 4.0
Chloride 98
Carbon Dioxide 25
BUN 43 H
Creatinine 2.4 H
Glucose 184 H
Calcium 8.6
Total Bilirubin 0.5
AST 28
ALT 44 H
Alkaline Phosphatase 228 H
Vital Signs:
Vital Signs
Temp Pulse Resp BP Pulse Ox
97.9 F 63 9 185/65 96
02/24/24 07:32 02/24/24 06:35 02/24/24 06:32 02/24/24 06:35 02/24/24 09:29
I&O
02/23/24 02/24/24 02/25/24
06:59 06:59 06:59
Intake Total 960 / 960 1260 / 1260
Balance 960 / 960 1260 / 1260
Review of Systems
-
History Source: Patient
All other systems: Not reviewed unless documented
Data Reviewed
-
Diagnostic Radiology: Report Reviewed by me
CT Scan: Image personally visualized and interpreted and Report Reviewed by me
Ultrasound: Report Reviewed by me
Labs: Labs Reviewed by me
[2024-02-24] MEDS: NOVOLOG FLEXPEN-HIGH RESISTANCE 7 UNITS SC ×2 (13:14→18:33)
[2024-02-24] MEDS: APRESOLINE 100 MG TUBE ×2 (15:18→23:17)
[2024-02-24 18:00] LABS: Glucose - Point of Care 261 mg/dl (70-99)
[2024-02-24 21:37] LABS: Glucose - Point of Care 195 mg/dl (70-99)
[2024-02-24] MEDS: NOVOLOG FLEXPEN-HIGH RESISTANCE 2 UNITS SC (23:17)
[2024-02-24 23:27] LABS: Glucose - Point of Care 185 mg/dl (70-99)
[2024-02-25] VITALS (22 sets, daily range): BP systolic 127–167; BP diastolic 40–63; BMI 25.1
[2024-02-25 05:40] LABS: Hematocrit 25.9 % (37.0-47.0); Hemoglobin 8.9 g/dL (12.0-16.0); Mean Corp Hgb Conc. 34.4 g/dL (33.0-37.0); Mean Corpuscular Volume 84.4 fL (81.0-99.0); Mean Platelet Volume 9.2 fL (7.4-10.4); Platelet Count 376 10^3/uL (130-400); Red Blood Cell Count 3.07 10^6/uL (4.20-5.40); Red Cell Dist. Width 18.6 % (11.5-14.5); White Blood Cell Count 20.2 10^3/uL (4.8-10.8)
[2024-02-25] MEDS: NOVOLOG FLEXPEN-HIGH RESISTANCE 4 UNITS SC ×2 (05:46→18:34)
[2024-02-25 05:57] LABS: Glucose - Point of Care 216 mg/dl (70-99)
[2024-02-25 06:07] LABS: ALT (SGPT) 32 U/L (0-35); AST (SGOT) 30 U/L (14-36); Albumin 2.6 g/dl (3.5-5.0); Alkaline Phosphatase 208 U/L (38-126); Blood Urea Nitrogen 56 mg/dl (7-17); Calcium 8.4 mg/dl (8.4-10.2); Carbon Dioxide 25 mmol/L (22-30); Chloride 96 mmol/L (98-107); Estimated Creatinine Clearance 17 ml/min; Glucose 214 mg/dl (70-99); Sodium 133 mmol/L (135-145); Total Bilirubin 0.4 mg/dl (0.2-1.3); Total Protein 5.7 g/dl (6.3-8.2); eGFR 17.18
--- NOTE | 2024-02-25 07:03 | PTCARENOTE ---
Cannot verify VS captured from prior shift.
[2024-02-25] MEDS: DAKIN'S SOLUTION 0.125% 1/4 STRENGTH 473 ML TOPICAL ×2 (07:48→20:09)
[2024-02-25] MEDS: VIMPAT 100 MG TUBE ×2 (07:49→20:09)
[2024-02-25] MEDS: NSS (PRESERVATIVE FREE) 10 ML IV ×2 (07:49→20:09)
[2024-02-25] MEDS: PROTONIX IV 40 MG IV ×2 (07:49→20:08)
[2024-02-25] MEDS: ASPIR LOW (ENTERIC COATED) 81 MG PO (07:49)
[2024-02-25] MEDS: FERROUS SULFATE ORAL LIQUID 300 MG TUBE (07:49)
[2024-02-25] MEDS: ELIQUIS 5 MG TUBE ×2 (07:50→20:09)
--- NOTE | 2024-02-25 08:03 | W.PN.HOSP.TC ---
Today's Communication/Plan
-
cont abx as per ID
HD as per nephro
wound care
monitor H&H
cont ASA Eliquis
Assessment / Plan
Assessment / Plan
Physical Exam
General: Well Developed, Well Nourished and No Apparent Distress
HEENT: NormoCephalic, Moist mucous membranes and Atraumatic
Respiratory: Clear
Cardiac: S1/S2 and Regular Rhythm; No Murmur or Rub
GI: Soft, Non Tender, Non Distended and Normal Bowel Sounds; No Organomegaly
Musculoskeletal: No Clubbing, No Cyanosis and No Edema
Skin: Rash and Decubitus Ulcers (sacral)
Neuro: Nonverbal communicates via head gestures
# Acute on chronic anemia likely from upper GI bleed on anticoagulants v CKD
-Resume Eliquis
-Hemoglobin 5.8 upon admission, transfused. transfused again 1 unit 02/22 - responded well
-EPO as per Renal
-cont to monitor cbc
-maintain hgb >7
- EGD: Esophagitis, no bleeding, clean based ulcer
-Use Protonix (pantoprazole) 40 mg PO BID for 8 weeks followed by once daily.
-GI consulted -signed off; if continuing to have drop in hemoglobin, will need to reengage GI
-Colonoscopy 12/27/2023: No source of bleeding multiple polypectomies proximal ascending colon, sigmoid colon removed with snare, internal hemorrhoids all benign neoplasm
-restarted ASA 02/20 and stable
-Restarted Eliquis 02/23 - so far H&H remains stable
#Sepsis
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
#Proctitis
-sharp excisional debridement performed with cautery and scissors 02/18
-wound cultures growing E-Coli, Proteus Mirabilis, Morganella moranii, enterococcus faecalis
-iv Zosyn
-wound care consulted
-ID consult appreciated
-Cdiff neg, blood culture neg
-no underlying abscess on CT imaging although possible proctitis
#Hyponatremia
-cont hd
#Hypokalemia
-monitor and replete
#Transaminitis
-most likely 2/2 to sepsis
-RUQ sono unremarkable
-Hep soler neg
-Hold statin
# nodular parenchymal scarring suspected in the superior segment of the right lower lobe.
-Consider follow-up in one year if the patient is at increased risk.
# History of CVA
-resume asa
# Paroxysmal A-fib
-HR controlled
-restarted eliquis - monitor hgb
# end-stage renal disease on dialysis
# Hyponatremia/hypokalemia/metabolic acidosis
-nephrology consulted
# Type 2 diabetes with hyperglycemia
-Blood sugar elevated in 300s
-sliding scale continued
#Dysphagia status post PEG tube
-All meds via PEG tube
-TF held due to GI bleed
-nutrition consult
HTN�benign multidrug-resistant
-Continue Norvasc 10 mg, clonidine transdermal patch, hydralazine 50 mg every 8h, losartan 100 mg
-CTM
#Hx CVA with immobility, dysphagia
#Seizure disorder
- hx EEG 01/04/24 no seizures
-Continue Vimpat 100 mg twice daily
#Dementia�severe
Keep head of bed raised to 30 degrees at all times
-May suction secretions
#CAD prior NSTEMI,
#DVT prophylaxis
SCDs
#CODE STATUS:
-Full code
discussed with patient's daughter Marcela
Total time spent on today's encounter was 51 minutes which included time spent in counseling the patient/family regarding diagnosis and treatment plan as listed above, goals of care, and symptom management. Case was discussed with nursing staff,
specialists, and care coordinators/case management. All labs and imaging personally reviewed by me. Remainder the time spent in detailed review of previous records, lab data, imaging, and other medical provider documentation.
Anticipated Discharge: 24 - 48 hours
Subjective/Interval History
-
Date of Service: February 25, 2024
Seen and examined at bedside in no acute distress resting comfortably in bed. Undergoing dialysis. nonverbal, communicating via head gestures (nodding yes, shaking no). Denies pain.
Objective Data
-
Labs:
Laboratory Results
02/25/24
05:27
WBC 20.2 H
Hgb 8.9 L
Hct 25.9 L
Plt Count 376
Sodium 133 L
Potassium 4.0
Chloride 96 L
Carbon Dioxide 25
BUN 56 H
Creatinine 2.8 H
Glucose 214 H
Calcium 8.4
Total Bilirubin 0.4
AST 30
ALT 32
Alkaline Phosphatase 208 H
Vital Signs:
Vital Signs
Temp Pulse Resp BP Pulse Ox
98.3 F 65 10 176/55 100
02/25/24 03:18 02/24/24 23:17 02/24/24 22:00 02/24/24 23:17 02/24/24 22:00
I&O
02/24/24 02/25/24 02/26/24
06:59 06:59 06:59
Intake Total 1260 / 1260 710 / 710
Output Total 800 / 800
Balance 1260 / 1260 -90 / -90
[2024-02-25] MEDS: RETACRIT 10000 UNITS IV (08:59)
--- NOTE | 2024-02-25 10:02 | W.PN.NEPH.HD ---
Assessment
-
Seen on HD. no complaints. VSS, access ok
Hgb stable this am
Progress Note - Hemodialysis
-
Date of Service: February 25, 2024
Duration: 30 minutes and 3 hours
Potassium Bath: 3
Calcium Bath: 2.5
Opti-Dialyzer: 160
Ultrafiltration: Other (2kg)
Blood Flow: 400
Dialysate Flow: 600
Heparin: no
EPO: 66855 units
--- NOTE | 2024-02-25 12:05 | W.PN.ID1 ---
Date of Service
Date of Service: February 25, 2024
Today's Communication
Continue antibiotics.
Assessment / Plan
Large/extensive sacral decubiti
-S/p debridement
Marked leukocytosis
- likely 2* infection with a reactive component.
- improving
Transaminitis
A-fib
NIDDM
ESRD�HD
Seizure disorder
Dementia
Dysphagia s/p PEG
Anemia
GERD
Hx CVA
Chronic diastolic CHF
HTN
Recommendations:
afebrile, declining leukocytosis and resolved thrombocytosis
offloading of the wound as feasible - turns q2 hours
Continue Zosyn.
Continue with local care to the sacral decubiti, including Dakin's solution to decrease overall superficial bioburden.
Trend white count and temperature curve.
Wound culture reviewed. All isolates susceptible to Zosyn.
Medium term prognosis grim, expect recurrent hospitalizations
Chief Complaint
-: Leukocytosis
Subjective / Review of Systems
Review of Systems: No Fever
Vital Signs / Physical Exam
Vital Signs
Vital Signs
Temp Pulse Resp BP Pulse Ox
98 F 77 9 138/63 100
02/25/24 09:15 02/25/24 11:00 02/25/24 11:00 02/25/24 11:00 02/25/24 10:40
Physical Exam
Constitutional: No Acute Distress, Chronically Ill and Non-toxic
Eyes: Sclera Anicteric
Cardiovascular: Regular Rate and S1/S2; Negative Murmur or Rub
Pulmonary: Clear and Symmetric; Negative Wheezes or Rales
Gastrointestinal: Soft, Non Tender, Non Distended and Normal Bowel Sounds
Skin: Warm and Dry; Negative Rash or Jaundice
Wound: Other (Sacral wound dressed.)
Neurological: Other (Arousable and responsive to voice and touch.)
Lines: Other (tunneled HD cath - no erythema, warmth tenderness or drainage)
Objective Data
Lab Data
Lab Results
02/25/24 05:27
02/25/24 05:27
PT 18.8 Sec (11.4-14.6) H 02/18/24 12:58
INR 1.59 02/18/24 12:58
APTT 35.1 Sec (23.4-35.0) H 02/18/24 12:58
Estimated Creat Clear 17 ml/min 02/25/24 05:27
Lactic Acid Cancelled 02/18/24 14:15
Total Bilirubin 0.4 mg/dl (0.2-1.3) 02/25/24 05:27
AST 30 U/L (14-36) 02/25/24 05:27
ALT 32 U/L (0-35) 02/25/24 05:27
Alkaline Phosphatase 208 U/L (38-126) H 02/25/24 05:27
Most recent labs reviewed.
Micro Results:
02/19/24 16:36 Blood Culture - Final
Blood/Venous No Growth - Final Report
02/19/24 14:41 Wound Culture - Final
Sacral Escherichia coli
Proteus mirabilis
Morganella morganii
Enterococcus faecalis
Gram Stain - Final
02/19/24 14:41 Anaerobic Culture - Final
Sacral
02/21/24 21:48 C. difficile GDH Antigen & Toxins - Final
Feces/Stool Negative for toxigenic C.difficile
02/18/24 17:19 Wound Culture - Final
Sacral Gram Stain - Final
02/18/24 17:19 Wound Culture - Final
Decubitis Ulcer Gram Stain - Final
Imaging:
02/20/2024 CT chest/abdomen/pelvis: No evidence of pneumonia. No acute inflammatory process within the abdomen. Findings suspicious for proctitis, but without acute diverticulitis. No CT evidence to suggest discitis or osteomyelitis.
[2024-02-25] MEDS: ZOSYN 50 IV ×3 (12:07→23:56)
[2024-02-25] MEDS: NORVASC 10 MG TUBE (12:07)
[2024-02-25] MEDS: APRESOLINE 100 MG TUBE ×3 (12:07→23:57)
[2024-02-25] MEDS: COZAAR 100 MG TUBE (12:08)
[2024-02-25] MEDS: NOVOLOG FLEXPEN-HIGH RESISTANCE 2 UNITS SC (12:17)
[2024-02-25 12:25] LABS: Glucose - Point of Care 170 mg/dl (70-99)
--- NOTE | 2024-02-25 17:27 | CM ---
Patient from [facility] with Hx ESRD on HD, dementia, sacral decub, PEG feeds with Dx Acute on chronic anemia likely from upper GI bleed, sepsis, Large stage IV sacral wound with purulence/necrotic tissue/exposed coccyx s/p debridement,
Proctitis. Room air. Receiving IV Abx. Tube feedings. Seen by wound care nurse. Per nursing; non-verbal, bedrest.
Phone call to [facility] this morning; left message requesting callback.
[facility] for report [phone], fax [phone].
Plan contact /daughter prior to return to SNF.
Plan return to [facility] when medically ready.
--- NOTE | 2024-02-25 18:25 | PTCARENOTE ---
Pt presents as assessed. Tolerated HD. Rectal trumpet dislodged, reinserted to protect wounds. Wound care completed, see intervention. Q2T maintained.
[2024-02-25 18:44] LABS: Glucose - Point of Care 213 mg/dl (70-99)
--- NOTE | 2024-02-25 20:00 | PTCARENOTE ---
Patient received in bed, awake and alert, nods head appropriately, attempts to make sounds, NSR on monitor, afebrile, lungs clear. on room air. Abdomen soft with hypoactive bowel sounds. Rectal trumpet maintained. Peg tube with Nepro infusing
at 50 ml/hr. anuric. #22 g in right hand and left upper arm midline flushed and patent. Turned and repositioned
[2024-02-25 23:44] LABS: Glucose - Point of Care 263 mg/dl (70-99)
[2024-02-25] MEDS: NOVOLOG FLEXPEN-HIGH RESISTANCE 7 UNITS SC (23:57)
[2024-02-26] VITALS (14 sets, daily range): BP systolic 133–158; BP diastolic 41–57; BMI 25.2
[2024-02-26 04:41] LABS: Hematocrit 26.1 % (37.0-47.0); Hemoglobin 8.8 g/dL (12.0-16.0); Mean Corp Hgb Conc. 33.7 g/dL (33.0-37.0); Mean Corpuscular Hgb 28.9 pg (27.0-31.0); Mean Corpuscular Volume 85.9 fL (81.0-99.0); Platelet Count 386 10^3/uL (130-400); Red Blood Cell Count 3.04 10^6/uL (4.20-5.40); Red Cell Dist. Width 18.7 % (11.5-14.5); White Blood Cell Count 14.2 10^3/uL (4.8-10.8)
[2024-02-26 05:23] LABS: Blood Urea Nitrogen 31 mg/dl (7-17); Calcium 8.6 mg/dl (8.4-10.2); Carbon Dioxide 27 mmol/L (22-30); Chloride 99 mmol/L (98-107); Estimated Creatinine Clearance 23 ml/min; Glucose 186 mg/dl (70-99); Phosphorus 1.9 mg/dl (2.5-4.5); Potassium 3.9 mmol/L (3.5-5.1); Sodium 137 mmol/L (135-145); eGFR 25.73
[2024-02-26] MEDS: NOVOLOG FLEXPEN-HIGH RESISTANCE 2 UNITS SC (05:59)
[2024-02-26] MEDS: VIMPAT 100 MG TUBE ×2 (07:20→20:20)
[2024-02-26] MEDS: DAKIN'S SOLUTION 0.125% 1/4 STRENGTH 473 ML TOPICAL ×2 (07:20→20:19)
[2024-02-26] MEDS: ELIQUIS 5 MG TUBE ×2 (07:20→20:20)
[2024-02-26] MEDS: FERROUS SULFATE ORAL LIQUID 300 MG TUBE (07:20)
[2024-02-26] MEDS: APRESOLINE 100 MG TUBE ×3 (07:21→23:09)
[2024-02-26] MEDS: ASPIR LOW (ENTERIC COATED) 81 MG PO (07:21)
[2024-02-26] MEDS: ZOSYN 50 IV ×3 (07:21→23:09)
[2024-02-26] MEDS: COZAAR 100 MG TUBE (07:21)
[2024-02-26] MEDS: PROTONIX IV 40 MG IV ×2 (07:22→20:19)
[2024-02-26] MEDS: NORVASC 10 MG TUBE (07:22)
[2024-02-26] MEDS: NSS (PRESERVATIVE FREE) 10 ML IV ×2 (07:22→20:20)
--- NOTE | 2024-02-26 07:31 | W.PN.HOSP.TC ---
Today's Communication/Plan
-
cont abx as per ID
wound care
HD as per Nephro
blood pressure control
glycemic control
Assessment / Plan
Assessment / Plan
Physical Exam
General: Well Developed, Well Nourished and No Apparent Distress
HEENT: NormoCephalic, Moist mucous membranes and Atraumatic
Respiratory: Clear
Cardiac: S1/S2 and Regular Rhythm; No Murmur or Rub
GI: Soft, Non Tender, Non Distended and Normal Bowel Sounds; No Organomegaly
Musculoskeletal: No Clubbing, No Cyanosis and No Edema
Skin: Rash and Decubitus Ulcers (sacral)
Neuro: Nonverbal communicates via head gestures (per daughter baseline patient able to speak a few words few weeks ago)
# Acute on chronic anemia likely from upper GI bleed on anticoagulants v CKD
-Resume Eliquis
-Hemoglobin 5.8 upon admission, transfused. transfused again 1 unit 02/22 - responded well
-EPO as per Renal
-cont to monitor cbc
-maintain hgb >7
- EGD: Esophagitis, no bleeding, clean based ulcer
-Use Protonix (pantoprazole) 40 mg PO BID for 8 weeks followed by once daily.
-GI consulted -signed off; if continuing to have drop in hemoglobin, will need to reengage GI
-Colonoscopy 12/27/2023: No source of bleeding multiple polypectomies proximal ascending colon, sigmoid colon removed with snare, internal hemorrhoids all benign neoplasm
-restarted ASA 02/20 and stable
-Restarted Eliquis 02/23 - so far H&H remains stable
#Sepsis
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
#Proctitis
-sharp excisional debridement performed with cautery and scissors 02/18
-wound cultures growing E-Coli, Proteus Mirabilis, Morganella moranii, enterococcus faecalis
-iv Zosyn
-wound care consulted
-ID consult appreciated
-Cdiff neg, blood culture neg
-no underlying abscess on CT imaging although possible proctitis
#Hyponatremia
-cont hd
#Hypokalemia
-monitor and replete
#Transaminitis
-most likely 2/2 to sepsis
-RUQ sono unremarkable
-Hep soler neg
-Hold statin
# nodular parenchymal scarring suspected in the superior segment of the right lower lobe.
-Outpt follow-up CT in 1 year recommended
# History of CVA 2020
#bedbound for last 2 years per daughter
#Possible acute metabolic encephalopathy 2/2 infection as above, currently nonverbal, per daughter patient able to speak few words a few weeks ago
#Suspect underlying vascular dementia
-cont asa
-CT head appreciated no acute abn's, findings suggest possible NPH and severe small vessel ischemic disease.
-Difficult to correlate findings of possible NPH given patient has been bed bound for years, is anuric ESRD
-has had progressive cognitive decline since initial hospitalization November 2023 this year though this could be due to progressive vascular dementia as opposed to NPH
-outpt follow up with Neurology recommended
# Paroxysmal A-fib
-HR controlled
-restarted eliquis - monitor hgb
# end-stage renal disease on dialysis
# Hyponatremia/hypokalemia/metabolic acidosis
-nephrology consulted
# Type 2 diabetes with hyperglycemia
-Blood sugar elevated in 300s
-sliding scale continued
#Dysphagia status post PEG tube
-All meds via PEG tube
-TF briefly held due to concerns GI bleed since resumed
-nutrition consult
HTN�benign multidrug-resistant
-Continue Norvasc 10 mg, clonidine transdermal patch, hydralazine 50 mg every 8h, losartan 100 mg
-CTM
#Hx CVA with immobility, dysphagia
#Seizure disorder
- hx EEG 01/04/24 no seizures
-Continue Vimpat 100 mg twice daily
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
Keep head of bed raised to 30 degrees at all times
-May suction secretions
Hypophosphatemia
monitor and replete as necessary
#CAD prior NSTEMI,
#DVT prophylaxis
SCDs
#CODE STATUS:
-Full code
Art no longer involved in patient's care. stopped his involvement months ago as per daughter Marcela CHOPRA
discussed with patient's daughter Marcela CHOPRA
Total time spent on today's encounter was 51 minutes which included time spent in counseling the patient/family regarding diagnosis and treatment plan as listed above, goals of care, and symptom management. Case was discussed with nursing staff,
specialists, and care coordinators/case management. All labs and imaging personally reviewed by me. Remainder the time spent in detailed review of previous records, lab data, imaging, and other medical provider documentation.
Anticipated Discharge: > 48 hours
Subjective/Interval History
-
Date of Service: February 26, 2024
nonverbal but appears comfortable. Responsive to verbal stimuli.
Objective Data
-
Labs:
Laboratory Results
02/26/24
04:26
WBC 14.2 H
Hgb 8.8 L
Hct 26.1 L
Plt Count 386
Sodium 137
Potassium 3.9
Chloride 99
Carbon Dioxide 27
BUN 31 H
Creatinine 2.0 H
Glucose 186 H
Calcium 8.6
Vital Signs:
Vital Signs
Temp Pulse Resp BP Pulse Ox
98.4 F 69 8 149/51 99
02/26/24 04:07 02/26/24 07:21 02/26/24 06:00 02/26/24 07:21 02/25/24 20:00
I&O
02/25/24 02/26/24 02/27/24
06:59 06:59 06:59
Intake Total 710 / 710 660 / 660
Output Total 800 / 800
Balance -90 / -90 660 / 660
--- NOTE | 2024-02-26 09:42 | W.PN.NEPH.PH ---
Today's Communication / Plan
-
HD tomorrow
Assessment/Plan
-
Assessment:
ESRD on HD tunneled dialysis catheter, [facility]
Acute on chronic anemia likely from upper GI bleed on anticoagulants
Infected sacral decub wound
leucocytosis
Paroxysmal A-fib
Type 2 diabetes with hyperglycemia
Elevated transaminase
Dysphagia status post PEG tube
HTN�benign multidrug-
Hx CVA with immobility, dysphagia
Seizure disorder
Dementia�severe
CAD prior NSTEMI
Hyponatremia
Plan:
Abx IV for decub
HD tomorrow
transfuse PRN
follow hgb
-
-
Date of Service: February 26, 2024
CC / HPI / ROS
-
Chief Complaint:
ESRD
History of Present Illness:
hgb stable 8.8
WBC down to 14
BP stable
tolerated HD yesterday
Review of Systems:
non verbal, on RA
Labs
-
Labs:
WBC 14.2 10^3/uL (4.8-10.8) H 02/26/24 04:26
RBC 3.04 10^6/uL (4.20-5.40) L 02/26/24 04:26
Hgb 8.8 g/dL (12.0-16.0) L 02/26/24 04:26
Hct 26.1 % (37.0-47.0) L 02/26/24 04:26
Plt Count 386 10^3/uL (130-400) 02/26/24 04:26
Sodium 137 mmol/L (135-145) 02/26/24 04:26
Potassium 3.9 mmol/L (3.5-5.1) 02/26/24 04:26
Chloride 99 mmol/L (98-107) 02/26/24 04:26
Carbon Dioxide 27 mmol/L (22-30) 02/26/24 04:26
BUN 31 mg/dl (7-17) H 02/26/24 04:26
Creatinine 2.0 mg/dL (0.6-1.0) H 02/26/24 04:26
eGFR 25.73 02/26/24 04:26
Glucose 186 mg/dl (70-99) H 02/26/24 04:26
Calcium 8.6 mg/dl (8.4-10.2) 02/26/24 04:26
Phosphorus 1.9 mg/dl (2.5-4.5) L 02/26/24 04:26
Albumin 2.6 g/dl (3.5-5.0) L 02/25/24 05:27
Physical Exam
-
Vital Signs:
Vital Signs
Temp Pulse Resp BP Pulse Ox
97.4 F 69 8 149/51 99
02/26/24 07:02 02/26/24 07:21 02/26/24 06:00 02/26/24 07:21 02/25/24 20:00
Cardiovascular:: Regular rate and rhythm
Respiratory:: Bilateral: CTA
Lung Excursion:: Normal
Abdomen:: Nontender and Soft
Bowel Sounds:: Normal
Extremity Edema:: None: Bilateral:
[2024-02-26] MEDS: SODIUM PHOSPHATE 255 MEQ IV (09:54)
[2024-02-26] MEDS: NOVOLOG FLEXPEN-HIGH RESISTANCE 4 UNITS SC ×3 (12:40→23:09)
[2024-02-26 12:45] LABS: Glucose - Point of Care 200 mg/dl (70-99)
--- NOTE | 2024-02-26 13:31 | W.PN.ID1 ---
Date of Service
Date of Service: February 26, 2024
Today's Communication
Continue antibiotics.
Assessment / Plan
Large/extensive sacral decubiti
-S/p debridement
Marked leukocytosis
- likely 2* infection with a reactive component.
- improving
Transaminitis
A-fib
NIDDM
ESRD�HD
Seizure disorder
Dementia
Dysphagia s/p PEG
Anemia
GERD
Hx CVA
Chronic diastolic CHF
HTN
Recommendations:
afebrile, declining leukocytosis and resolved thrombocytosis
offloading of the wound as feasible - turn q2 hours
Continue Zosyn.
Continue with local care to the sacral decubiti, including Dakin's solution to decrease overall superficial bioburden.
Trend white count and temperature curve.
Wound culture reviewed. All isolates susceptible to Zosyn.
Medium term prognosis grim, would expect recurrent hospitalizations.
Chief Complaint
-: Leukocytosis
Subjective / Review of Systems
Review of Systems: No Fever
Vital Signs / Physical Exam
Vital Signs
Vital Signs
Temp Pulse Resp BP Pulse Ox
97.9 F 68 12 147/44 100
02/26/24 11:04 02/26/24 10:00 02/26/24 10:00 02/26/24 10:00 02/26/24 08:00
Physical Exam
Constitutional: No Acute Distress, Chronically Ill and Non-toxic
Head: Normocephalic
Eyes: Sclera Anicteric
Cardiovascular: Regular Rate and S1/S2; Negative Murmur or Rub
Pulmonary: Clear and Symmetric; Negative Wheezes or Rales
Gastrointestinal: Soft, Non Tender, Non Distended and Normal Bowel Sounds
Skin: Warm and Dry; Negative Rash or Jaundice
Wound: Other (Sacral wound dressed.)
Neurological: Other (Arousable and responsive to voice and touch.)
Lines: Other (tunneled HD cath - no erythema, warmth tenderness or drainage)
Objective Data
Lab Data
Lab Results
02/26/24 04:26
02/26/24 04:26
PT 18.8 Sec (11.4-14.6) H 02/18/24 12:58
INR 1.59 02/18/24 12:58
APTT 35.1 Sec (23.4-35.0) H 02/18/24 12:58
Estimated Creat Clear 23 ml/min 02/26/24 04:26
Lactic Acid Cancelled 02/18/24 14:15
Total Bilirubin 0.4 mg/dl (0.2-1.3) 02/25/24 05:27
AST 30 U/L (14-36) 02/25/24 05:27
ALT 32 U/L (0-35) 02/25/24 05:27
Alkaline Phosphatase 208 U/L (38-126) H 02/25/24 05:27
Most recent labs reviewed.
Micro Results:
02/19/24 16:36 Blood Culture - Final
Blood/Venous No Growth - Final Report
02/19/24 14:41 Wound Culture - Final
Sacral Escherichia coli
Proteus mirabilis
Morganella morganii
Enterococcus faecalis
Gram Stain - Final
02/19/24 14:41 Anaerobic Culture - Final
Sacral
02/21/24 21:48 C. difficile GDH Antigen & Toxins - Final
Feces/Stool Negative for toxigenic C.difficile
02/18/24 17:19 Wound Culture - Final
Sacral Gram Stain - Final
02/18/24 17:19 Wound Culture - Final
Decubitis Ulcer Gram Stain - Final
Imaging:
02/20/2024 CT chest/abdomen/pelvis: No evidence of pneumonia. No acute inflammatory process within the abdomen. Findings suspicious for proctitis, but without acute diverticulitis. No CT evidence to suggest discitis or osteomyelitis.
--- NOTE | 2024-02-26 15:17 | WOUNDNOTE ---
L HEEL AND FEET
--- NOTE | 2024-02-26 15:18 | WOUNDNOTE ---
FABIENNE RN NOTE: With assistance from nurse Josiah, all dressings changed and patient repositioned onto L semi side lying position with HOB elevated. Remains on [facility] air bed with turning schedule, pillows in use under calves and quilted heel
boots. All wounds appear wall cleaner and less odor. L heel with new blood blister, suspect DTI. Appears shallow but too early to tell. Adaptic, ABD pad and chi applied to L heel. R heel with dry skin and few brown spots, adhesive foam applied. Called
[employer] for Tru[employer]ue lite offloading foam heel boots, nurse Josiah will apply to both heels when arrives. Will confirm orders with hospitalist and update care plan. Despite preventative measures, patient at risk for developing additional PI's due to medical
condition. Will follow as needed.
--- NOTE | 2024-02-26 15:38 | PTCARENOTE ---
Assumed care of pt at 0645 from assistant shift supervisor RN. Pt awake and alert, nods head appropriately. Pt mostly nonverbal; however, able to say single words at times. NSR on nuclear monitoring technician. SpO2 100% on room air. VSS. Tube feeds (Nepro) infusing through peg
tube at goal 50ml/hr. Pt tolerating. Head of bed maintained at 30 degrees or higher while tube feeds infusing. Rectal trumpet maintained. Pt anuric. Plan for HD tmrw. Continuing with IV abx. ID following. Wound care performed at bedside with wound
care RN Emani. Pictures of wounds uploaded to notes. Pt on q2h turn schedule. Pressure relief boots placed on b/l lower extremities. Assessment documented. Pt resting in bed, call carrillo in reach.
[2024-02-26 18:05] LABS: Glucose - Point of Care 245 mg/dl (70-99)
--- NOTE | 2024-02-26 21:09 | PTCARENOTE ---
assumed care of patient, pt is non-verbal, nods head appropriately and follows with eyes. moans with turns. NSR on the monitor. tube feeds infusing into peg tube- nepro @ 50ml/hr. rectal trumpet intact, flushed and working good. sacrum dressing CDI-
q2t with foam wedge, fiber filled boots on feet. care ongoing.
[2024-02-26 23:21] LABS: Glucose - Point of Care 207 mg/dl (70-99)
[2024-02-27] VITALS (34 sets, daily range): BP systolic 108–167; BP diastolic 42–81; BMI 25.7
--- NOTE | 2024-02-27 03:04 | DOWNTIME ---
There was a e-[employer] Client Promotion Writer Downtime on 02/27/2024 from 0100 to 02/27/2024 at 0300. Downtime documentation of patient's care, including medication administrations, has been reconciled in the electronic record per guidelines. Refer to the
patient's paper chart under the miscellaneous tab to see printed paper medication records and downtime forms.
[2024-02-27 04:20] LABS: Hematocrit 25.2 % (37.0-47.0); Hemoglobin 8.5 g/dL (12.0-16.0); Mean Corp Hgb Conc. 33.7 g/dL (33.0-37.0); Mean Corpuscular Hgb 29.2 pg (27.0-31.0); Mean Corpuscular Volume 86.6 fL (81.0-99.0); Mean Platelet Volume 9.5 fL (7.4-10.4); Platelet Count 412 10^3/uL (130-400); Red Blood Cell Count 2.91 10^6/uL (4.20-5.40); Red Cell Dist. Width 18.7 % (11.5-14.5)
[2024-02-27 04:41] LABS: Blood Urea Nitrogen 42 mg/dl (7-17); Calcium 8.5 mg/dl (8.4-10.2); Carbon Dioxide 25 mmol/L (22-30); Chloride 98 mmol/L (98-107); Estimated Creatinine Clearance 18 ml/min; Glucose 207 mg/dl (70-99); Phosphorus 3.4 mg/dl (2.5-4.5); Potassium 3.6 mmol/L (3.5-5.1); Sodium 135 mmol/L (135-145); eGFR 18.78
[2024-02-27] MEDS: NOVOLOG FLEXPEN-HIGH RESISTANCE 4 UNITS SC (06:21)
[2024-02-27 06:31] LABS: Glucose - Point of Care 236 mg/dl (70-99)
--- NOTE | 2024-02-27 08:08 | W.PN.HOSP.TC ---
Today's Communication/Plan
-
cont abx as per ID
HD as per Nephro
check EEG
cont wound care
Assessment / Plan
Assessment / Plan
Physical Exam
General: Well Developed, Well Nourished and No Apparent Distress
HEENT: NormoCephalic, Moist mucous membranes and Atraumatic
Respiratory: Clear
Cardiac: S1/S2 and Regular Rhythm; No Murmur or Rub
GI: Soft, Non Tender, Non Distended and Normal Bowel Sounds; No Organomegaly
Musculoskeletal: No Clubbing, No Cyanosis and No Edema
Skin: Rash and Decubitus Ulcers (sacral)
Neuro: Largely Nonverbal communicates via head gestures, said 'hi' during this evaluation. No other words spoken. (per daughter baseline patient able to speak a few words few weeks ago)
# Acute on chronic anemia likely from upper GI bleed on anticoagulants v CKD
-Resumed Eliquis appears to be tolerating well.
-Hemoglobin 5.8 upon admission, transfused. transfused again 1 unit 02/22 - responded well
-EPO as per Renal
-cont to monitor cbc
-maintain hgb >7
- EGD: Esophagitis, no bleeding, clean based ulcer
-Use Protonix (pantoprazole) 40 mg PO BID for 8 weeks followed by once daily.
-GI consulted -signed off; if continuing to have drop in hemoglobin, will need to reengage GI
-Colonoscopy 12/27/2023: No source of bleeding multiple polypectomies proximal ascending colon, sigmoid colon removed with snare, internal hemorrhoids all benign neoplasm
-restarted ASA 02/20 and stable
-Restarted Eliquis 02/23 - so far H&H remains stable
#Sepsis
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
#Proctitis
-sharp excisional debridement performed with cautery and scissors 02/18
-wound cultures growing E-Coli, Proteus Mirabilis, Morganella moranii, enterococcus faecalis
-iv Zosyn
-wound care consulted
-ID consult appreciated
-Cdiff neg, blood culture neg
-no underlying abscess on CT imaging although possible proctitis
#Hyponatremia
-cont hd
#Hypokalemia
-monitor and replete
#Transaminitis
-most likely 2/2 to sepsis
-RUQ sono unremarkable
-Hep soler neg
-Hold statin
# nodular parenchymal scarring suspected in the superior segment of the right lower lobe.
-Outpt follow-up CT in 1 year recommended
# History of CVA 2020
#bedbound for last 2 years per daughter
#Possible acute metabolic encephalopathy 2/2 infection as above, currently nonverbal, per daughter patient able to speak few words a few weeks ago
#Suspect underlying vascular dementia
-cont asa
-CT head appreciated no acute abn's, findings suggest possible NPH and severe small vessel ischemic disease.
-Difficult to correlate findings of possible NPH given patient has been bed bound for years, is anuric ESRD
-has had progressive cognitive decline since initial hospitalization November 2023 this year though this could be due to progressive vascular dementia as opposed to NPH
-outpt follow up with Neurology recommended
# Paroxysmal A-fib
-HR controlled
-restarted eliquis - monitor hgb
# end-stage renal disease on dialysis
# Hyponatremia/hypokalemia/metabolic acidosis
-nephrology consulted
# Type 2 diabetes with hyperglycemia
-Blood sugar elevated in 300s
-sliding scale continued
#Dysphagia status post PEG tube
-All meds via PEG tube
-TF briefly held due to concerns GI bleed since resumed
-nutrition consult
HTN�benign multidrug-resistant
-Continue Norvasc 10 mg, clonidine transdermal patch, hydralazine 50 mg every 8h, losartan 100 mg
-CTM
#Hx CVA with immobility, dysphagia
#Seizure disorder
- hx EEG 01/04/24 no seizures
-Continue Vimpat 100 mg twice daily
-EEG repeating given AMS habitually grinding teeth
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
Keep head of bed raised to 30 degrees at all times
-May suction secretions
Hypophosphatemia
monitor and replete as necessary
#CAD prior NSTEMI,
#DVT prophylaxis
SCDs
#CODE STATUS:
-Full code
Art no longer involved in patient's care. stopped his involvement months ago as per daughter Marcela CHOPRA
discussed with patient's daughter Marcela CHOPRA
Total time spent on today's encounter was 51 minutes which included time spent in counseling the patient/family regarding diagnosis and treatment plan as listed above, goals of care, and symptom management. Case was discussed with nursing staff,
specialists, and care coordinators/case management. All labs and imaging personally reviewed by me. Remainder the time spent in detailed review of previous records, lab data, imaging, and other medical provider documentation.
Anticipated Discharge: > 48 hours
Subjective/Interval History
-
Date of Service: February 27, 2024
More alert, remains largely nonverbal communicating via head gestures. Patient did say 'hi' during this evaluation. Grinding her teeth for unclear reasons. Noted by dialysis nurse to be patient's habit. Daughter confirms patient has been
habitually grinding her teeth prior to admission.
Objective Data
-
Labs:
Laboratory Results
02/27/24
03:51
WBC 12.0 H
Hgb 8.5 L
Hct 25.2 L
Plt Count 412 H
Sodium 135
Potassium 3.6
Chloride 98
Carbon Dioxide 25
BUN 42 H
Creatinine 2.6 H
Glucose 207 H
Calcium 8.5
Vital Signs:
Vital Signs
Temp Pulse Resp BP Pulse Ox
98.4 F 73 12 167/48 100
02/27/24 03:27 02/27/24 06:00 02/27/24 06:00 02/27/24 06:00 02/26/24 20:39
I&O
02/26/24 02/27/24 02/28/24
06:59 06:59 06:59
Intake Total 660 / 660
Balance 660 / 660
[2024-02-27] MEDS: RETACRIT 10000 UNITS IV (08:44)
[2024-02-27] MEDS: PROTONIX IV 40 MG IV ×2 (09:10→20:28)
[2024-02-27] MEDS: FERROUS SULFATE ORAL LIQUID 300 MG TUBE (09:10)
[2024-02-27] MEDS: VIMPAT 100 MG TUBE ×2 (09:10→20:28)
[2024-02-27] MEDS: ASPIR LOW (ENTERIC COATED) 81 MG PO (09:11)
[2024-02-27] MEDS: ELIQUIS 5 MG TUBE ×2 (09:11→20:28)
[2024-02-27] MEDS: NSS (PRESERVATIVE FREE) 10 ML IV ×2 (09:11→20:28)
--- NOTE | 2024-02-27 10:19 | W.PN.NEPH.HD ---
Assessment
-
pt seen during HD
vitals stable
hb stable on high dose LAURA
phos repleted
CVC functions well
abx per ID
Progress Note - Hemodialysis
-
Date of Service: February 27, 2024
Duration: 30 minutes and 3 hours
Potassium Bath: 3
Calcium Bath: 2.5
Opti-Dialyzer: 160
Ultrafiltration: Other (2.5-3kg)
Blood Flow: 400
Dialysate Flow: 600
Heparin: no
EPO: [id number]
--- NOTE | 2024-02-27 11:46 | CM ---
Reviewed the chart notes. Patient received HD today. CM continues to be available to patient/family and is monitoring medical plan for needs at discharge.
Plan: Discharge to [facility] when medically stable. No precert required.
Call report to: [phone]
Fax report to: [phone]
[2024-02-27 11:49] LABS: Glucose - Point of Care 149 mg/dl (70-99)
[2024-02-27] MEDS: NORVASC 10 MG TUBE (12:45)
[2024-02-27] MEDS: ZOSYN 50 IV ×2 (12:45→17:22)
[2024-02-27] MEDS: COZAAR 100 MG TUBE (12:45)
[2024-02-27] MEDS: APRESOLINE 100 MG TUBE ×2 (12:46→17:22)
[2024-02-27] MEDS: NOVOLOG FLEXPEN 3 UNITS SC ×2 (12:48→17:27)
[2024-02-27] MEDS: NOVOLOG FLEXPEN-HIGH RESISTANCE 1 UNITS SC (12:49)
--- NOTE | 2024-02-27 12:49 | W.PN.ID1 ---
Date of Service
Date of Service: February 27, 2024
Today's Communication
Continue abx.
Assessment / Plan
Large/extensive sacral decubiti
-S/p debridement
Marked leukocytosis
- likely 2* infection with a reactive component.
- improving
Transaminitis
A-fib
NIDDM
ESRD�HD
Seizure disorder
Dementia
Dysphagia s/p PEG
Anemia
GERD
Hx CVA
Chronic diastolic CHF
HTN
Recommendations:
afebrile, declining leukocytosis and resolved thrombocytosis
offloading of the wound as feasible - turn q2 hours
Continue Zosyn (d#10).
Continue with local care to the sacral decubiti, including Dakin's solution to decrease overall superficial bioburden.
Trend white count and temperature
Wound culture reviewed. All isolates susceptible to Zosyn.
Given size of wound and nutrition level, patient will likely have significant difficulty healing.
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 Would expect recurrent hospitalizations and infections.
Chief Complaint
-: Leukocytosis
Subjective / Review of Systems
Patient seen and examined. Overall no significant changes from yesterday. Currently on dialysis.
Vital Signs / Physical Exam
Vital Signs
Vital Signs
Temp Pulse Resp BP Pulse Ox
98.4 F 89 10 128/52 100
02/27/24 09:03 02/27/24 11:00 02/27/24 11:00 02/27/24 11:00 02/26/24 20:39
Physical Exam
Constitutional: No Acute Distress, Chronically Ill and Non-toxic
Head: Normocephalic
Eyes: Sclera Anicteric
Cardiovascular: Regular Rate and S1/S2; Negative Murmur or Rub
Pulmonary: Clear and Symmetric; Negative Wheezes or Rales
Gastrointestinal: Soft, Non Tender, Non Distended and Normal Bowel Sounds
Skin: Warm and Dry; Negative Rash or Jaundice
Wound: Other (Sacral wound dressed. Wound care pictures noted.)
Neurological: Other (Arousable and responsive to voice and touch.)
Lines: Other (tunneled HD cath - no erythema, warmth tenderness or drainage)
Objective Data
Lab Data
Lab Results
02/27/24 03:51
02/27/24 03:51
PT 18.8 Sec (11.4-14.6) H 02/18/24 12:58
INR 1.59 02/18/24 12:58
APTT 35.1 Sec (23.4-35.0) H 02/18/24 12:58
Estimated Creat Clear 18 ml/min 02/27/24 03:51
Lactic Acid Cancelled 02/18/24 14:15
Total Bilirubin 0.4 mg/dl (0.2-1.3) 02/25/24 05:27
AST 30 U/L (14-36) 02/25/24 05:27
ALT 32 U/L (0-35) 02/25/24 05:27
Alkaline Phosphatase 208 U/L (38-126) H 02/25/24 05:27
Most recent labs reviewed.
Micro Results:
02/19/24 16:36 Blood Culture - Final
Blood/Venous No Growth - Final Report
02/19/24 14:41 Wound Culture - Final
Sacral Escherichia coli
Proteus mirabilis
Morganella morganii
Enterococcus faecalis
Gram Stain - Final
02/19/24 14:41 Anaerobic Culture - Final
Sacral
02/21/24 21:48 C. difficile GDH Antigen & Toxins - Final
Feces/Stool Negative for toxigenic C.difficile
02/18/24 17:19 Wound Culture - Final
Sacral Gram Stain - Final
02/18/24 17:19 Wound Culture - Final
Decubitis Ulcer Gram Stain - Final
Imaging:
02/20/2024 CT chest/abdomen/pelvis: No evidence of pneumonia. No acute inflammatory process within the abdomen. Findings suspicious for proctitis, but without acute diverticulitis. No CT evidence to suggest discitis or osteomyelitis.
[2024-02-27] MEDS: DAKIN'S SOLUTION 0.125% 1/4 STRENGTH 473 ML TOPICAL (15:08)
--- NOTE | 2024-02-27 16:03 | EEG.RPT ---
Electroencephalogram Report
Recording
Date of EE02/27/24
Type of EEG: Routine
Length of EEG recordin minutes
Done with Video Recording: Yes
Patient Status: Inpatient
Recording Conditions: Awake and Drowsy
Hyperventilation Performed: No
Photic Stimulation Performed: Yes
Report
LESS THAN 1 HOUR EEG REPORT
LESS THAN 1 HOUR EEG INTERPRETATION:
Mildly abnormal EEG for age in wakefulness through sleep due to mild diffuse bihemispheric slowing
CLINICAL CORRELATION:
This study was suggestive of mild diffuse cortical dysfunction without focal abnormality. No seizures were recorded.
Clinical correlation is advised.
METHODS:
A 21 channel digitized electroencephalogram (EEG) was performed at the bedside in the IMU. The 10/20 international system of electrode placement was used with ECG and lateral/vertical eye movements recorded. The Trover quantitive system was
utilized.
QUALITY OF STUDY:
Good
ELECTROENCEPHALOGRAPHER IMPRESSION(S):
Background
Amplitude: Unremarkable
Anterior-Posterior Organization: Fair, good at times
Maximum: Theta
Asymmetry: None
Sleep
Drowsiness present
Stage 1 sleep suggested
Photic Stimulation
Failed to activate the record
ECG
Normal sinus rhythm
[2024-02-27] MEDS: NOVOLOG FLEXPEN-HIGH RESISTANCE 2 UNITS SC (17:28)
[2024-02-27 17:38] LABS: Glucose - Point of Care 187 mg/dl (70-99)
--- NOTE | 2024-02-27 18:14 | PTCARENOTE ---
HD completed today, BP remains elevated all scheduled meds up to date as were held pre/during HD. SR on tele. Eyes open she said yes to a question this am but no further communication noted- LC/ RA- PEG with Tube feeds at goal. Anuric- specimen
unable to be obtained. EEG completed at the bedside. [facility] NVPS 0. Continues to grind her teeth all day - spoke with sister chalo and she says she does that all the time.
[2024-02-27] MEDS: DAKIN'S SOLUTION 0.125% 1/4 STRENGTH TOPICAL (20:28)
[2024-02-28] VITALS (14 sets, daily range): BP systolic 119–146; BP diastolic 37–48; BMI 24.8
[2024-02-28] MEDS: NOVOLOG FLEXPEN 3 UNITS SC ×5 (00:25→23:19)
[2024-02-28] MEDS: ZOSYN 50 IV ×4 (00:25→23:18)
[2024-02-28] MEDS: NOVOLOG FLEXPEN-HIGH RESISTANCE 4 UNITS SC ×2 (00:25→23:19)
[2024-02-28] MEDS: APRESOLINE 100 MG TUBE ×4 (00:26→23:18)
[2024-02-28 00:38] LABS: Glucose - Point of Care 223 mg/dl (70-99)
[2024-02-28 04:42] LABS: Hematocrit 25.3 % (37.0-47.0); Hemoglobin 8.4 g/dL (12.0-16.0); Mean Corp Hgb Conc. 33.2 g/dL (33.0-37.0); Mean Corpuscular Volume 87.2 fL (81.0-99.0); Mean Platelet Volume 9.6 fL (7.4-10.4); Platelet Count 413 10^3/uL (130-400); Red Cell Dist. Width 19.3 % (11.5-14.5); White Blood Cell Count 12.3 10^3/uL (4.8-10.8)
[2024-02-28 05:02] LABS: Blood Urea Nitrogen 30 mg/dl (7-17); Calcium 8.6 mg/dl (8.4-10.2); Carbon Dioxide 25 mmol/L (22-30); Chloride 99 mmol/L (98-107); Estimated Creatinine Clearance 26 ml/min; Glucose 164 mg/dl (70-99); Magnesium 1.9 mg/dl (1.6-2.3); Phosphorus 2.4 mg/dl (2.5-4.5); Potassium 3.4 mmol/L (3.5-5.1); Sodium 135 mmol/L (135-145)
[2024-02-28] MEDS: NOVOLOG FLEXPEN-HIGH RESISTANCE 2 UNITS SC ×3 (05:19→18:23)
[2024-02-28 05:31] LABS: Glucose - Point of Care 165 mg/dl (70-99)
--- NOTE | 2024-02-28 07:32 | W.PN.HOSP.TC ---
Today's Communication/Plan
-
cont abx as per ID
HD as per Nephro
Replete K
cont wound care
Assessment / Plan
Assessment / Plan
Physical Exam
General: Well Developed, Well Nourished and No Apparent Distress
HEENT: NormoCephalic, Moist mucous membranes and Atraumatic
Respiratory: Clear
Cardiac: S1/S2 and Regular Rhythm; No Murmur or Rub
GI: Soft, Non Tender, Non Distended and Normal Bowel Sounds; No Organomegaly
Musculoskeletal: No Clubbing, No Cyanosis and No Edema
Skin: Rash and Decubitus Ulcers (sacral)
Neuro: Largely Nonverbal communicates via head gestures, said 'hi' during this evaluation. No other words spoken. (per daughter baseline patient able to speak a few words few weeks ago)
# Acute on chronic anemia likely from upper GI bleed on anticoagulants v CKD
-Resumed Eliquis appears to be tolerating well.
-Hemoglobin 5.8 upon admission, transfused. transfused again 1 unit 02/22 - responded well
-EPO as per Renal
-cont to monitor cbc
-maintain hgb >7
- EGD: Esophagitis, no bleeding, clean based ulcer
-Use Protonix (pantoprazole) 40 mg PO BID for 8 weeks followed by once daily.
-GI consulted -signed off; if continuing to have drop in hemoglobin, will need to reengage GI
-Colonoscopy 12/27/2023: No source of bleeding multiple polypectomies proximal ascending colon, sigmoid colon removed with snare, internal hemorrhoids all benign neoplasm
-restarted ASA 02/20 and stable
-Restarted Eliquis 02/23 - so far H&H remains stable
#Sepsis
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
#Proctitis
-sharp excisional debridement performed with cautery and scissors 02/18
-wound cultures growing E-Coli, Proteus Mirabilis, Morganella moranii, enterococcus faecalis
-iv Zosyn
-wound care consulted
-ID consult appreciated
-Cdiff neg, blood culture neg
-no underlying abscess on CT imaging although possible proctitis
#Hyponatremia
-cont hd
#Hypokalemia
-monitor and replete
#Transaminitis
-most likely 2/2 to sepsis
-RUQ sono unremarkable
-Hep soler neg
-Hold statin
# nodular parenchymal scarring suspected in the superior segment of the right lower lobe.
-Outpt follow-up CT in 1 year recommended
# History of CVA 2020
#bedbound for last 2 years per daughter
#Possible acute metabolic encephalopathy 2/2 infection as above, currently nonverbal, per daughter patient able to speak few words a few weeks ago
#Suspect underlying vascular dementia
-cont asa
-CT head appreciated no acute abn's, findings suggest possible NPH and severe small vessel ischemic disease.
-Difficult to correlate findings of possible NPH given patient has been bed bound for years, is anuric ESRD
-has had progressive cognitive decline since initial hospitalization November 2023 this year though this could be due to progressive vascular dementia as opposed to NPH
-outpt follow up with Neurology recommended
# Paroxysmal A-fib
-HR controlled
-restarted eliquis - monitor hgb
# end-stage renal disease on dialysis
# Hyponatremia/hypokalemia/metabolic acidosis
-nephrology consulted
# Type 2 diabetes with hyperglycemia
-Blood sugar elevated in 300s
-sliding scale continued
#Dysphagia status post PEG tube
-All meds via PEG tube
-TF briefly held due to concerns GI bleed since resumed
-nutrition consult
HTN�benign multidrug-resistant
-Continue Norvasc 10 mg, clonidine transdermal patch, hydralazine 50 mg every 8h, losartan 100 mg
-CTM
#Hx CVA with immobility, dysphagia
#Seizure disorder
- hx EEG 01/04/24 no seizures
-Continue Vimpat 100 mg twice daily
-EEG repeating given AMS habitually grinding teeth
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
Keep head of bed raised to 30 degrees at all times
-May suction secretions
Hypophosphatemia
Hypokalemia
monitor and replete as necessary
#CAD prior NSTEMI,
#DVT prophylaxis
SCDs
#CODE STATUS:
-Full code
Art no longer involved in patient's care, stopped his involvement months ago as per daughter Marcela CHOPRA
discussed with patient's daughter Marcela CHOPRA
Total time spent on today's encounter was 40 minutes which included time spent in counseling the patient/family regarding diagnosis and treatment plan as listed above, goals of care, and symptom management. Case was discussed with nursing staff,
specialists, and care coordinators/case management. All labs and imaging personally reviewed by me. Remainder the time spent in detailed review of previous records, lab data, imaging, and other medical provider documentation.
Anticipated Discharge: 24 - 48 hours
Subjective/Interval History
-
Date of Service: February 28, 2024
nonverbal though interactive with head gestures. Appears comfortable at this time. No acute distress.
Objective Data
-
Labs:
Laboratory Results
02/28/24
04:26
WBC 12.3 H
Hgb 8.4 L
Hct 25.3 L
Plt Count 413 H
Sodium 135
Potassium 3.4 L
Chloride 99
Carbon Dioxide 25
BUN 30 H
Creatinine 1.8 H
Glucose 164 H
Calcium 8.6
Vital Signs:
Vital Signs
Temp Pulse Resp BP Pulse Ox
98.4 F 77 12 127/44 99
02/28/24 07:29 02/28/24 04:00 02/28/24 04:00 02/28/24 04:00 02/28/24 04:00
I&O
02/27/24 02/28/24 02/29/24
06:59 06:59 06:59
Intake Total 140 / 140
Output Total 400 / 400
Balance -260 / -260
[2024-02-28] MEDS: ASPIR LOW (ENTERIC COATED) 81 MG PO (10:00)
[2024-02-28] MEDS: COZAAR 100 MG TUBE (10:02)
[2024-02-28] MEDS: ELIQUIS 5 MG TUBE ×2 (10:03→20:33)
[2024-02-28] MEDS: DAKIN'S SOLUTION 0.125% 1/4 STRENGTH 473 ML TOPICAL ×2 (10:03→20:34)
[2024-02-28] MEDS: FERROUS SULFATE ORAL LIQUID 300 MG TUBE (10:04)
[2024-02-28] MEDS: NORVASC 10 MG TUBE (10:04)
[2024-02-28] MEDS: NSS (PRESERVATIVE FREE) 10 ML IV ×2 (10:05→20:33)
[2024-02-28] MEDS: PROTONIX IV 40 MG IV ×2 (10:06→20:33)
[2024-02-28] MEDS: VIMPAT 100 MG TUBE ×2 (10:06→20:33)
--- NOTE | 2024-02-28 11:38 | W.PN.NEPH.PH ---
Today's Communication / Plan
-
HD tomorrow
Assessment/Plan
-
Assessment:
ESRD on HD tunneled dialysis catheter, [facility]
Acute on chronic anemia likely from upper GI bleed on anticoagulants
Infected sacral decub wound
leucocytosis
Paroxysmal A-fib
Type 2 diabetes with hyperglycemia
Elevated transaminase
Dysphagia status post PEG tube
HTN�benign multidrug-
Hx CVA with immobility, dysphagia
Seizure disorder
Dementia�severe
CAD prior NSTEMI
Hyponatremia
Plan:
Abx IV for decub
HD tomorrow
transfuse PRN
follow hgb stable
reaplce k
d/w at bedside in detail of her clinical status and asked him to discuss with family regarding GOC
-
-
Date of Service: February 28, 2024
CC / HPI / ROS
-
Chief Complaint:
ESRD
History of Present Illness:
hgb stable 8.4
WBC down to 12.3
BP stable
tolerated HD yesterday
Review of Systems:
non verbal, on RA
follow simple commands
Labs
-
Labs:
WBC 12.3 10^3/uL (4.8-10.8) H 02/28/24 04:26
RBC 2.90 10^6/uL (4.20-5.40) L 02/28/24 04:26
Hgb 8.4 g/dL (12.0-16.0) L 02/28/24 04:26
Hct 25.3 % (37.0-47.0) L 02/28/24 04:26
Plt Count 413 10^3/uL (130-400) H 02/28/24 04:26
Sodium 135 mmol/L (135-145) 02/28/24 04:26
Potassium 3.4 mmol/L (3.5-5.1) L 02/28/24 04:26
Chloride 99 mmol/L (98-107) 02/28/24 04:26
Carbon Dioxide 25 mmol/L (22-30) 02/28/24 04:26
BUN 30 mg/dl (7-17) H 02/28/24 04:26
Creatinine 1.8 mg/dL (0.6-1.0) H 02/28/24 04:26
eGFR 29.20 02/28/24 04:26
Glucose 164 mg/dl (70-99) H 02/28/24 04:26
Calcium 8.6 mg/dl (8.4-10.2) 02/28/24 04:26
Phosphorus 2.4 mg/dl (2.5-4.5) L 02/28/24 04:26
Albumin 2.6 g/dl (3.5-5.0) L 02/25/24 05:27
Physical Exam
-
Vital Signs:
Vital Signs
Temp Pulse Resp BP Pulse Ox
98.4 F 77 10 138/44 99
02/28/24 07:29 02/28/24 10:04 02/28/24 10:00 02/28/24 10:04 02/28/24 10:00
Cardiovascular:: Regular rate and rhythm
Respiratory:: Bilateral: CTA
Lung Excursion:: Normal
Abdomen:: Nontender and Soft
Extremity Edema:: None: Bilateral: (trace generalized)
Castañeda Catheter: No
[2024-02-28 12:03] LABS: Glucose - Point of Care 175 mg/dl (70-99)
--- NOTE | 2024-02-28 12:04 | W.PN.ID1 ---
Date of Service
Date of Service: February 28, 2024
Today's Communication
Continue with Zosyn for today.
Assessment / Plan
Large/extensive sacral decubiti
-S/p debridement
Marked leukocytosis
- improving
Transaminitis
A-fib
NIDDM
ESRD�HD
Seizure disorder
Dementia
Dysphagia s/p PEG
Anemia
GERD
Hx CVA
Chronic diastolic CHF
HTN
Recommendations:
afebrile, declining leukocytosis and resolved thrombocytosis
offloading of the wound as feasible - turn q2 hours
Continue Zosyn (d#11) for another 2 days then discontinue.
Continue with local care to the sacral decubiti, including Dakin's solution to decrease overall superficial bioburden.
Trend white count and temperature
Wound culture reviewed. All isolates susceptible to Zosyn.
Size of wound, nutrition level, and underlying comorbidities of diabetes mellitus and end-stage renal disease all will negatively impact the patient's ability to heal.
Medium / detention prognosis poor-nil. Would expect recurrent hospitalizations and infections. Patient appears to be at least 'palliative care' appropriate.
����������������������������������������������������������
Chief Complaint
-: Leukocytosis
Subjective / Review of Systems
Review of Systems: No Fever
Vital Signs / Physical Exam
Vital Signs
Vital Signs
Temp Pulse Resp BP Pulse Ox
98.5 F 77 10 138/44 99
02/28/24 11:00 02/28/24 10:04 02/28/24 10:00 02/28/24 10:04 02/28/24 10:00
Physical Exam
Constitutional: Comfortable, Chronically Ill and Non-toxic
Eyes: Sclera Anicteric
Cardiovascular: S1/S2; Negative S3/S4
Pulmonary: Non Labored
Gastrointestinal: Soft, Non Distended and Normal Bowel Sounds
Wound: Other (Sacral wound dressed. Heel wounds dressed.)
Neurological: Awake
Psychological: Calm
Objective Data
Lab Data
Lab Results
02/28/24 04:26
02/28/24 04:26
PT 18.8 Sec (11.4-14.6) H 02/18/24 12:58
INR 1.59 02/18/24 12:58
APTT 35.1 Sec (23.4-35.0) H 02/18/24 12:58
Estimated Creat Clear 26 ml/min 02/28/24 04:26
Lactic Acid Cancelled 02/18/24 14:15
Total Bilirubin 0.4 mg/dl (0.2-1.3) 02/25/24 05:27
AST 30 U/L (14-36) 02/25/24 05:27
ALT 32 U/L (0-35) 02/25/24 05:27
Alkaline Phosphatase 208 U/L (38-126) H 02/25/24 05:27
Most recent labs reviewed.
Micro Results:
02/19/24 16:36 Blood Culture - Final
Blood/Venous No Growth - Final Report
02/19/24 14:41 Wound Culture - Final
Sacral Escherichia coli
Proteus mirabilis
Morganella morganii
Enterococcus faecalis
Gram Stain - Final
02/19/24 14:41 Anaerobic Culture - Final
Sacral
02/21/24 21:48 C. difficile GDH Antigen & Toxins - Final
Feces/Stool Negative for toxigenic C.difficile
02/18/24 17:19 Wound Culture - Final
Sacral Gram Stain - Final
02/18/24 17:19 Wound Culture - Final
Decubitis Ulcer Gram Stain - Final
Imaging:
02/20/2024 CT chest/abdomen/pelvis: No evidence of pneumonia. No acute inflammatory process within the abdomen. Findings suspicious for proctitis, but without acute diverticulitis. No CT evidence to suggest discitis or osteomyelitis.
[2024-02-28] MEDS: CATAPRES-TTS-1 0.1 MG TRANSDERM (12:16)
[2024-02-28] MEDS: KCL 40 MEQ PO (12:19)
[2024-02-28] MEDS: MORPHINE ORAL SOLUTION 2.5 MG TUBE (14:26)
[2024-02-28 18:12] LABS: Glucose - Point of Care 181 mg/dl (70-99)
[2024-02-28 23:30] LABS: Glucose - Point of Care 205 mg/dl (70-99)
[2024-02-29] VITALS (30 sets, daily range): BP systolic 103–162; BP diastolic 34–74; BMI 24.8
[2024-02-29] MEDS: NOVOLOG FLEXPEN 3 UNITS SC (05:42)
[2024-02-29] MEDS: NOVOLOG FLEXPEN-HIGH RESISTANCE 4 UNITS SC ×2 (05:42→23:05)
[2024-02-29 05:50] LABS: Glucose - Point of Care 226 mg/dl (70-99)
[2024-02-29 05:54] LABS: Hematocrit 26.6 % (37.0-47.0); Hemoglobin 8.7 g/dL (12.0-16.0); Mean Corp Hgb Conc. 32.7 g/dL (33.0-37.0); Mean Corpuscular Hgb 29.1 pg (27.0-31.0); Mean Platelet Volume 9.3 fL (7.4-10.4); Platelet Count 438 10^3/uL (130-400); Red Blood Cell Count 2.99 10^6/uL (4.20-5.40); Red Cell Dist. Width 19.3 % (11.5-14.5); White Blood Cell Count 12.1 10^3/uL (4.8-10.8)
[2024-02-29] MEDS: MORPHINE ORAL SOLUTION 2.5 MG TUBE (06:08)
[2024-02-29 06:11] LABS: Blood Urea Nitrogen 45 mg/dl (7-17); Carbon Dioxide 26 mmol/L (22-30); Chloride 97 mmol/L (98-107); Estimated Creatinine Clearance 17 ml/min; Glucose 217 mg/dl (70-99); Phosphorus 3.1 mg/dl (2.5-4.5); Potassium 4.2 mmol/L (3.5-5.1); Sodium 135 mmol/L (135-145); eGFR 17.95
--- NOTE | 2024-02-29 06:18 | PTCARENOTE ---
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 Pt is AAOX1 and will nod her head. Occasional will follow simple command with a one word response. NSR in the monitor. Wound care provided per order. Rectal trumpet in place. Q2 turn. Hygiene provided.
--- NOTE | 2024-02-29 07:33 | W.PN.HOSP.TC ---
Today's Communication/Plan
-
abx as per ID
HD as per Nephro
wound care
glycemic control
Assessment / Plan
Assessment / Plan
Physical Exam
General: No Apparent Distress, appears comfortable
HEENT: NormoCephalic, Moist mucous membranes and Atraumatic
Respiratory: Clear
Cardiac: S1/S2 and Regular Rhythm; No Murmur or Rub
GI: Soft, Non Tender, Non Distended and Normal Bowel Sounds; No Organomegaly
Musculoskeletal: No Clubbing, No Cyanosis and No Edema
Skin: Rash and Decubitus Ulcers (sacral)
Neuro: Nonverbal
# Acute on chronic anemia likely from upper GI bleed on anticoagulants v CKD
-Resumed Eliquis appears to be tolerating well.
-Hemoglobin 5.8 upon admission, transfused. transfused again 1 unit 02/22 - responded well
-EPO as per Renal
-cont to monitor cbc
-maintain hgb >7
- EGD: Esophagitis, no bleeding, clean based ulcer
-Use Protonix (pantoprazole) 40 mg PO BID for 8 weeks followed by once daily.
-GI consulted -signed off; if continuing to have drop in hemoglobin, will need to reengage GI
-Colonoscopy 12/27/2023: No source of bleeding multiple polypectomies proximal ascending colon, sigmoid colon removed with snare, internal hemorrhoids all benign neoplasm
-restarted ASA 02/20 and stable
-Restarted Eliquis 02/23 - so far H&H remains stable
#Sepsis
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
#Proctitis
-sharp excisional debridement performed with cautery and scissors 02/18
-wound cultures growing E-Coli, Proteus Mirabilis, Morganella moranii, enterococcus faecalis
-iv Zosyn
-wound care consulted
-ID consult appreciated
-Cdiff neg, blood culture neg
-no underlying abscess on CT imaging although possible proctitis
#Hyponatremia
-cont hd
#Hypokalemia
-monitor and replete
#Transaminitis
-most likely 2/2 to sepsis
-RUQ sono unremarkable
-Hep soler neg
-Hold statin
# nodular parenchymal scarring suspected in the superior segment of the right lower lobe.
-Outpt follow-up CT in 1 year recommended
# History of CVA 2020
#bedbound for last 2 years per daughter
#Possible acute metabolic encephalopathy 2/2 infection as above, currently nonverbal, per daughter patient able to speak few words a few weeks ago
#Suspect underlying vascular dementia
-cont asa
-CT head appreciated no acute abn's, findings suggest possible NPH and severe small vessel ischemic disease.
-Difficult to correlate findings of possible NPH given patient has been bed bound for years, is anuric ESRD
-has had progressive cognitive decline since initial hospitalization November 2023 this year though this could be due to progressive vascular dementia as opposed to NPH
-outpt follow up with Neurology recommended
# Paroxysmal A-fib
-HR controlled
-restarted eliquis - monitor hgb
# end-stage renal disease on dialysis
# Hyponatremia/hypokalemia/metabolic acidosis
-nephrology consulted
# Type 2 diabetes
-sliding scale continued
-scheduled novolog
-titrate insulin regimen as necessary.
#Dysphagia status post PEG tube
-All meds via PEG tube
-TF briefly held due to concerns GI bleed since resumed
-nutrition consult
HTN�benign multidrug-resistant
-Continue Norvasc 10 mg, clonidine transdermal patch, hydralazine 50 mg every 8h, losartan 100 mg
-CTM
#Hx CVA with immobility, dysphagia
#Seizure disorder
- hx EEG 01/04/24 no seizures
-Continue Vimpat 100 mg twice daily
-EEG repeating given AMS habitually grinding teeth
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
Keep head of bed raised to 30 degrees at all times
-May suction secretions
Hypophosphatemia
Hypokalemia
monitor and replete as necessary
#CAD prior NSTEMI,
#DVT prophylaxis
SCDs
#CODE STATUS:
-Full code
Art no longer involved in patient's care, stopped his involvement months ago as per daughter Marcela CHOPRA
discussed with patient's daughter Marcela CHOPRA
Total time spent on today's encounter was 40 minutes which included time spent in counseling the patient/family regarding diagnosis and treatment plan as listed above, goals of care, and symptom management. Case was discussed with nursing staff,
specialists, and care coordinators/case management. All labs and imaging personally reviewed by me. Remainder the time spent in detailed review of previous records, lab data, imaging, and other medical provider documentation.
Anticipated Discharge: 24 - 48 hours
Subjective/Interval History
-
Date of Service: February 29, 2024
nonverbal. Responds to verbal physical stimuli.
Objective Data
-
Labs:
Laboratory Results
02/29/24
05:40
WBC 12.1 H
Hgb 8.7 L
Hct 26.6 L
Plt Count 438 H
Sodium 135
Potassium 4.2
Chloride 97 L
Carbon Dioxide 26
BUN 45 H
Creatinine 2.7 H
Glucose 217 H
Calcium 9.0
Vital Signs:
Vital Signs
Temp Pulse Resp BP Pulse Ox
97.8 F 69 14 134/43 99
02/29/24 05:08 02/29/24 06:36 02/29/24 06:36 02/29/24 06:36 02/29/24 06:36
I&O
02/28/24 02/29/24 03/01/24
06:59 06:59 06:59
Intake Total 140 / 140 1879
Output Total 400 / 400
Balance -260 / -260 1879
[2024-02-29] MEDS: PROTONIX IV 40 MG IV ×2 (08:28→20:51)
[2024-02-29] MEDS: NSS (PRESERVATIVE FREE) 10 ML IV ×2 (08:28→20:52)
[2024-02-29] MEDS: FERROUS SULFATE ORAL LIQUID 300 MG TUBE (08:29)
[2024-02-29] MEDS: ZOSYN 50 IV ×3 (08:29→23:06)
[2024-02-29] MEDS: APRESOLINE 100 MG TUBE ×3 (08:29→23:04)
[2024-02-29] MEDS: ASPIR LOW (ENTERIC COATED) 81 MG PO (08:29)
[2024-02-29] MEDS: ELIQUIS 5 MG TUBE ×2 (08:29→20:51)
[2024-02-29] MEDS: COZAAR 100 MG TUBE (08:30)
[2024-02-29] MEDS: NORVASC 10 MG TUBE (08:30)
[2024-02-29] MEDS: DAKIN'S SOLUTION 0.125% 1/4 STRENGTH 473 ML TOPICAL ×2 (08:31→20:52)
[2024-02-29] MEDS: VIMPAT 100 MG TUBE ×2 (08:31→20:51)
[2024-02-29] MEDS: RETACRIT 10000 UNITS IV (12:40)
[2024-02-29] MEDS: FLEXBUMIN 25% FOR HEMODIALYSIS 12.5 GRAMS IV ×2 (12:45→14:20)
[2024-02-29] MEDS: MANNITOL 25% 12.5 GRAMS IV ×2 (12:49→14:21)
[2024-02-29] MEDS: NOVOLOG FLEXPEN 5 UNITS SC ×3 (13:35→23:05)
[2024-02-29] MEDS: NOVOLOG FLEXPEN-HIGH RESISTANCE 2 UNITS SC (13:36)
[2024-02-29 13:48] LABS: Glucose - Point of Care 159 mg/dl (70-99)
--- NOTE | 2024-02-29 14:57 | W.PN.NEPH.HD ---
Assessment
-
Seen on HD. no new issues. remains on Abx. VSS, access ok CVC
Progress Note - Hemodialysis
-
Date of Service: February 29, 2024
Duration: 30 minutes and 3 hours
Potassium Bath: 3
Calcium Bath: 2.5
Opti-Dialyzer: 160
Ultrafiltration: Other (2kg)
Blood Flow: 400
Dialysate Flow: 600
Heparin: no
EPO: 97179 units
--- NOTE | 2024-02-29 15:12 | WOUNDNOTE ---
L HEEL CLOSER VIEW
--- NOTE | 2024-02-29 15:13 | WOUNDNOTE ---
WON RN NOTE: Followed up today regarding heels, currently on dialysis unable to check sacrum. With assist from dialysis nurse Zamzam, changed dressing on L heel. Soft shallow appearing blood blister remains intact, can see some intact skin through
blister. Adaptic, abd pad and chi applied. R heel with same black [place] medially, remainder intact, foam applied. TruVue lite offloading heel boots applied, heels completely offloaded.
--- NOTE | 2024-02-29 15:52 | W.PN.ID1 ---
Date of Service
Date of Service: February 29, 2024
Today's Communication
Continue Zosyn for today. See below�
Assessment / Plan
Large/extensive sacral decubiti
-S/p debridement
Marked leukocytosis
- improving
Transaminitis
A-fib
NIDDM
ESRD�HD
Seizure disorder
Dementia
Dysphagia s/p PEG
Anemia
GERD
Hx CVA
Chronic diastolic CHF
HTN
Recommendations:
Wound culture reviewed. All isolates susceptible to Zosyn.
afebrile, declining leukocytosis and resolved thrombocytosis
Continue with local care to the sacral decubiti, including Dakin's solution to decrease overall superficial bioburden.
offloading of the wound as feasible - turn q2 hours
Continue Zosyn (d#12) for another day then discontinue.
Trend white count and temperature
Size of wound, nutrition level, and underlying comorbidities of diabetes mellitus and end-stage renal disease all will negatively impact the patient's ability to heal.
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 Would expect recurrent hospitalizations and infections. Patient appears to be at least 'palliative care' appropriate.
����������������������������������������������������������
Chief Complaint
-: Leukocytosis
Subjective / Review of Systems
Review of Systems: No Fever
Vital Signs / Physical Exam
Vital Signs
Vital Signs
Temp Pulse Resp BP Pulse Ox
97.6 F 68 13 143/53 100
02/29/24 11:12 02/29/24 12:15 02/29/24 12:15 02/29/24 12:15 02/29/24 12:15
Physical Exam
Constitutional: Comfortable, Chronically Ill and Non-toxic
Eyes: Sclera Anicteric
Cardiovascular: S1/S2; Negative S3/S4
Pulmonary: Non Labored
Gastrointestinal: Soft, Non Distended and Normal Bowel Sounds
Wound: Other (Sacral wound dressed. Heel wounds dressed.)
Neurological: Awake
Psychological: Calm
Objective Data
Lab Data
Lab Results
02/29/24 05:40
02/29/24 05:40
PT 18.8 Sec (11.4-14.6) H 02/18/24 12:58
INR 1.59 02/18/24 12:58
APTT 35.1 Sec (23.4-35.0) H 02/18/24 12:58
Estimated Creat Clear 17 ml/min 02/29/24 05:40
Lactic Acid Cancelled 02/18/24 14:15
Total Bilirubin 0.4 mg/dl (0.2-1.3) 02/25/24 05:27
AST 30 U/L (14-36) 02/25/24 05:27
ALT 32 U/L (0-35) 02/25/24 05:27
Alkaline Phosphatase 208 U/L (38-126) H 02/25/24 05:27
Most recent labs reviewed.
Micro Results:
02/19/24 16:36 Blood Culture - Final
Blood/Venous No Growth - Final Report
02/19/24 14:41 Wound Culture - Final
Sacral Escherichia coli
Proteus mirabilis
Morganella morganii
Enterococcus faecalis
Gram Stain - Final
02/19/24 14:41 Anaerobic Culture - Final
Sacral
02/21/24 21:48 C. difficile GDH Antigen & Toxins - Final
Feces/Stool Negative for toxigenic C.difficile
02/18/24 17:19 Wound Culture - Final
Sacral Gram Stain - Final
02/18/24 17:19 Wound Culture - Final
Decubitis Ulcer Gram Stain - Final
Imaging:
02/20/2024 CT chest/abdomen/pelvis: No evidence of pneumonia. No acute inflammatory process within the abdomen. Findings suspicious for proctitis, but without acute diverticulitis. No CT evidence to suggest discitis or osteomyelitis.
--- NOTE | 2024-02-29 17:07 | CM ---
Patient from [facility] with Hx ESRD on HD, dementia, sacral decub, PEG feeds with Dx Anemia likely due to UGI bleed, sepsis, Large stage IV sacral wound s/p debridement, Proctitis. Room air. Receiving IV Abx. Tube feedings. Seen by wound
care nurse. Per nursing; non-verbal, bedrest.
Spoke with Nayeli Rocha [facility]; provided clinical update. Referral for patient's return to SNF placed in [facility]. The for report [phone], fax [phone].
Plan contact /daughter prior to return to SNF.
Plan return to [facility] when medically ready.
--- NOTE | 2024-02-29 17:33 | PTCARENOTE ---
Rec'd pt this AM. lethargic, mostly unresponsive apart from an occassional nod. sleeping most of shift. HD today. tolerated. vital signs stable.
[2024-02-29] MEDS: NOVOLOG FLEXPEN-HIGH RESISTANCE 1 UNITS SC (18:00)
[2024-02-29 18:11] LABS: Glucose - Point of Care 141 mg/dl (70-99)
[2024-02-29 23:14] LABS: Glucose - Point of Care 207 mg/dl (70-99)
[2024-03-01] VITALS (12 sets, daily range): BP systolic 112–144; BP diastolic 34–50; BMI 24.3
[2024-03-01 04:53] LABS: Hematocrit 25.6 % (37.0-47.0); Hemoglobin 8.4 g/dL (12.0-16.0); Mean Corp Hgb Conc. 32.8 g/dL (33.0-37.0); Mean Corpuscular Hgb 30.3 pg (27.0-31.0); Mean Corpuscular Volume 92.4 fL (81.0-99.0); Mean Platelet Volume 9.6 fL (7.4-10.4); Platelet Count 396 10^3/uL (130-400); Red Blood Cell Count 2.77 10^6/uL (4.20-5.40); Red Cell Dist. Width 19.1 % (11.5-14.5); White Blood Cell Count 11.7 10^3/uL (4.8-10.8)
[2024-03-01 05:16] LABS: Blood Urea Nitrogen 25 mg/dl (7-17); Calcium 8.9 mg/dl (8.4-10.2); Carbon Dioxide 31 mmol/L (22-30); Chloride 97 mmol/L (98-107); Estimated Creatinine Clearance 27 ml/min; Glucose 145 mg/dl (70-99); Phosphorus 2.5 mg/dl (2.5-4.5); Potassium 4.1 mmol/L (3.5-5.1); Sodium 136 mmol/L (135-145); eGFR 31.27
[2024-03-01] MEDS: MORPHINE ORAL SOLUTION 2.5 MG TUBE (05:28)
[2024-03-01] MEDS: NOVOLOG FLEXPEN 5 UNITS SC ×3 (05:29→18:10)
[2024-03-01] MEDS: NOVOLOG FLEXPEN-HIGH RESISTANCE 1 UNITS SC (05:29)
[2024-03-01 05:42] LABS: Glucose - Point of Care 142 mg/dl (70-99)
--- NOTE | 2024-03-01 07:28 | W.PN.HOSP.TC ---
Today's Communication/Plan
-
cont abx as per ID
HD as per Nephro
ECHO sunday eval systolic murmur
wound care
Assessment / Plan
Assessment / Plan
Physical Exam
General: No Apparent Distress, appears comfortable
HEENT: NormoCephalic, Moist mucous membranes and Atraumatic
Respiratory: Clear
Cardiac: S1/S2 and Regular Rhythm; Systolic Murmur
GI: Soft, Non Tender, Non Distended and Normal Bowel Sounds; No Organomegaly
Musculoskeletal: No Clubbing, No Cyanosis and No Edema
Skin: Rash and Decubitus Ulcers (sacral)
Neuro: Nonverbal
# Acute on chronic anemia likely from upper GI bleed on anticoagulants v CKD
-Resumed Eliquis appears to be tolerating well.
-Hemoglobin 5.8 upon admission, transfused. transfused again 1 unit 02/22 - responded well
-EPO as per Renal
-cont to monitor cbc
-maintain hgb >7
- EGD: Esophagitis, no bleeding, clean based ulcer
-Use Protonix (pantoprazole) 40 mg PO BID for 8 weeks followed by once daily.
-GI consulted -signed off; if continuing to have drop in hemoglobin, will need to reengage GI
-Colonoscopy 12/27/2023: No source of bleeding multiple polypectomies proximal ascending colon, sigmoid colon removed with snare, internal hemorrhoids all benign neoplasm
-restarted ASA 02/20 and stable
-Restarted Eliquis 02/23 - so far H&H remains stable
#Sepsis
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
#Proctitis
-sharp excisional debridement performed with cautery and scissors 02/18
-wound cultures growing E-Coli, Proteus Mirabilis, Morganella moranii, enterococcus faecalis
-iv Zosyn
-wound care consulted
-ID consult appreciated
-Cdiff neg, blood culture neg
-no underlying abscess on CT imaging although possible proctitis
#Systolic Murmur possibly d/t Anemia
Check ECHO eval for possible Endocarditis
#Hyponatremia
-cont hd
#Hypokalemia
-monitor and replete
#Transaminitis
-most likely 2/2 to sepsis
-RUQ sono unremarkable
-Hep soler neg
-Hold statin
# nodular parenchymal scarring suspected in the superior segment of the right lower lobe.
-Outpt follow-up CT in 1 year recommended
# History of CVA 2020
#bedbound for last 2 years per daughter
#Possible acute metabolic encephalopathy 2/2 infection as above, currently nonverbal, per daughter patient able to speak few words a few weeks ago
#Suspect underlying vascular dementia
-cont asa
-CT head appreciated no acute abn's, findings suggest possible NPH and severe small vessel ischemic disease.
-Difficult to correlate findings of possible NPH given patient has been bed bound for years, is anuric ESRD
-has had progressive cognitive decline since initial hospitalization November 2023 this year though this could be due to progressive vascular dementia as opposed to NPH
-outpt follow up with Neurology recommended
# Paroxysmal A-fib
-HR controlled
-restarted eliquis - monitor hgb
# end-stage renal disease on dialysis
# Hyponatremia/hypokalemia/metabolic acidosis
-nephrology consulted
# Type 2 diabetes
-sliding scale continued
-scheduled novolog
-titrate insulin regimen as necessary.
#Dysphagia status post PEG tube
-All meds via PEG tube
-TF briefly held due to concerns GI bleed since resumed
-nutrition consult
HTN�benign multidrug-resistant
-Continue Norvasc 10 mg, clonidine transdermal patch, hydralazine 50 mg every 8h, losartan 100 mg
-CTM
#Hx CVA with immobility, dysphagia
#Seizure disorder
- hx EEG 01/04/24 no seizures
-Continue Vimpat 100 mg twice daily
-EEG repeating given AMS habitually grinding teeth
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
Keep head of bed raised to 30 degrees at all times
-May suction secretions
Hypophosphatemia
Hypokalemia
monitor and replete as necessary
#CAD prior NSTEMI,
#DVT prophylaxis
SCDs
#CODE STATUS:
-Full code
Art no longer involved in patient's care, stopped his involvement months ago as per daughter Marcela CHOPRA
discussed with patient's daughter Marcela CHOPRA
Total time spent on today's encounter was 40 minutes which included time spent in counseling the patient/family regarding diagnosis and treatment plan as listed above, goals of care, and symptom management. Case was discussed with nursing staff,
specialists, and care coordinators/case management. All labs and imaging personally reviewed by me. Remainder the time spent in detailed review of previous records, lab data, imaging, and other medical provider documentation.
Anticipated Discharge: 24 - 48 hours
Subjective/Interval History
-
Date of Service: March 01, 2024
Less interactive today, nonverbal, responds to verbal stimuli (calling her name) but otherwise noncommunicative not answering questions.
Objective Data
-
Labs:
Laboratory Results
03/01/24
04:34
WBC 11.7 H
Hgb 8.4 L
Hct 25.6 L
Plt Count 396
Sodium 136
Potassium 4.1
Chloride 97 L
Carbon Dioxide 31 H
BUN 25 H
Creatinine 1.7 H
Glucose 145 H
Calcium 8.9
Vital Signs:
Vital Signs
Temp Pulse Resp BP Pulse Ox
98.4 F 75 15 124/42 100
03/01/24 05:02 03/01/24 06:00 03/01/24 06:00 03/01/24 06:00 03/01/24 06:00
I&O
02/29/24 03/01/24 03/02/24
06:59 06:59 06:59
Intake Total 1879 1260 / 1260
Balance 1879 1260 / 1260
--- NOTE | 2024-03-01 08:14 | W.PN.NEPH.PH ---
Today's Communication / Plan
-
echo
Assessment/Plan
-
Assessment:
ESRD on HD tunneled dialysis catheter, MEF [facility]
Acute on chronic anemia likely from upper GI bleed on anticoagulants
Infected sacral decub wound
leucocytosis
Paroxysmal A-fib
Type 2 diabetes with hyperglycemia
Elevated transaminase
Dysphagia status post PEG tube
HTN�benign multidrug-
Hx CVA with immobility, dysphagia
Seizure disorder
Dementia�severe
CAD prior NSTEMI
Hyponatremia
Plan:
Abx IV for decub
HD sunday
transfuse PRN
follow hgb
check echo sunday
-
-
Date of Service: March 01, 2024
CC / HPI / ROS
-
Chief Complaint:
ESRD
History of Present Illness:
hgb stable 8.4
WBC down to 11.7
BP stable
tolerated HD yesterday
Review of Systems:
non verbal, on RA
follow simple commands
Labs
-
Labs:
WBC 11.7 10^3/uL (4.8-10.8) H 03/01/24 04:34
RBC 2.77 10^6/uL (4.20-5.40) L 03/01/24 04:34
Hgb 8.4 g/dL (12.0-16.0) L 03/01/24 04:34
Hct 25.6 % (37.0-47.0) L 03/01/24 04:34
Plt Count 396 10^3/uL (130-400) 03/01/24 04:34
Sodium 136 mmol/L (135-145) 03/01/24 04:34
Potassium 4.1 mmol/L (3.5-5.1) 03/01/24 04:34
Chloride 97 mmol/L (98-107) L 03/01/24 04:34
Carbon Dioxide 31 mmol/L (22-30) H 03/01/24 04:34
BUN 25 mg/dl (7-17) H 03/01/24 04:34
Creatinine 1.7 mg/dL (0.6-1.0) H 03/01/24 04:34
eGFR 31.27 03/01/24 04:34
Glucose 145 mg/dl (70-99) H 03/01/24 04:34
Calcium 8.9 mg/dl (8.4-10.2) 03/01/24 04:34
Phosphorus 2.5 mg/dl (2.5-4.5) 03/01/24 04:34
Albumin 2.6 g/dl (3.5-5.0) L 02/25/24 05:27
Physical Exam
-
Vital Signs:
Vital Signs
Temp Pulse Resp BP Pulse Ox
98.4 F 75 15 124/42 100
03/01/24 05:02 03/01/24 06:00 03/01/24 06:00 03/01/24 06:00 03/01/24 06:00
Cardiovascular:: Regular rate and rhythm (harsh systolic murmur)
Lung Excursion:: Normal
Abdomen:: Nontender
Bowel Sounds:: Normal
Extremity Edema:: None: Bilateral:
[2024-03-01] MEDS: NORVASC 10 MG TUBE (08:31)
[2024-03-01] MEDS: COZAAR 100 MG TUBE (08:32)
[2024-03-01] MEDS: ELIQUIS 5 MG TUBE ×2 (08:32→19:41)
[2024-03-01] MEDS: ASPIR LOW (ENTERIC COATED) 81 MG PO (08:32)
[2024-03-01] MEDS: VIMPAT 100 MG TUBE ×2 (08:33→19:41)
[2024-03-01] MEDS: ZOSYN 50 IV ×2 (08:33→17:09)
[2024-03-01] MEDS: APRESOLINE 100 MG TUBE ×2 (08:33→17:06)
[2024-03-01] MEDS: PROTONIX IV 40 MG IV ×2 (08:34→19:42)
[2024-03-01] MEDS: FERROUS SULFATE ORAL LIQUID 300 MG TUBE (08:34)
[2024-03-01] MEDS: NSS (PRESERVATIVE FREE) 10 ML IV ×2 (08:34→19:42)
[2024-03-01] MEDS: DAKIN'S SOLUTION 0.125% 1/4 STRENGTH TOPICAL (08:35)
[2024-03-01] MEDS: NOVOLOG FLEXPEN-HIGH RESISTANCE 2 UNITS SC ×2 (13:26→18:10)
[2024-03-01 13:30] LABS: Glucose - Point of Care 188 mg/dl (70-99)
[2024-03-01 18:21] LABS: Glucose - Point of Care 184 mg/dl (70-99)
[2024-03-01] MEDS: DAKIN'S SOLUTION 0.125% 1/4 STRENGTH 473 ML TOPICAL (19:42)
[2024-03-02] VITALS (12 sets, daily range): BP systolic 112–148; BP diastolic 38–51; BMI 24.7
[2024-03-02 00:18] LABS: Glucose - Point of Care 163 mg/dl (70-99)
[2024-03-02] MEDS: NOVOLOG FLEXPEN-HIGH RESISTANCE 2 UNITS SC ×4 (00:37→17:45)
[2024-03-02] MEDS: NOVOLOG FLEXPEN 5 UNITS SC ×4 (00:37→17:45)
[2024-03-02] MEDS: APRESOLINE 100 MG TUBE ×3 (00:37→17:52)
[2024-03-02] MEDS: MORPHINE ORAL SOLUTION 2.5 MG TUBE (05:42)
[2024-03-02 05:47] LABS: Glucose - Point of Care 179 mg/dl (70-99)
[2024-03-02 05:57] LABS: Hematocrit 24.9 % (37.0-47.0); Hemoglobin 8.1 g/dL (12.0-16.0); Mean Corp Hgb Conc. 32.5 g/dL (33.0-37.0); Mean Corpuscular Hgb 29.5 pg (27.0-31.0); Mean Corpuscular Volume 90.5 fL (81.0-99.0); Mean Platelet Volume 9.1 fL (7.4-10.4); Platelet Count 411 10^3/uL (130-400); Red Blood Cell Count 2.75 10^6/uL (4.20-5.40); Red Cell Dist. Width 19.2 % (11.5-14.5)
--- NOTE | 2024-03-02 06:06 | PTCARENOTE ---
Caring for patient overnight. No assessment changes. NSR, remains on RA. Tube feeds at goal, tolerating. Q2T. Waffle boots. Sacral wound care. Pt nonverbal, opens eyes to verbal. Will continue to monitor.
[2024-03-02 06:23] LABS: Blood Urea Nitrogen 43 mg/dl (7-17); Calcium 9.4 mg/dl (8.4-10.2); Carbon Dioxide 32 mmol/L (22-30); Chloride 95 mmol/L (98-107); Estimated Creatinine Clearance 18 ml/min; Glucose 186 mg/dl (70-99); Potassium 4.1 mmol/L (3.5-5.1); Sodium 135 mmol/L (135-145); eGFR 18.78
--- NOTE | 2024-03-02 07:17 | W.PN.HOSP.TC ---
Today's Communication/Plan
-
monitor off abx
HD as per Nephro
glycemic control
monitor H&H
Assessment / Plan
Assessment / Plan
Physical Exam
General: No Apparent Distress, appears comfortable
HEENT: NormoCephalic, Moist mucous membranes and Atraumatic
Respiratory: Clear
Cardiac: S1/S2 and Regular Rhythm; no Murmur
GI: Soft, Non Tender, Non Distended and Normal Bowel Sounds; No Organomegaly
Musculoskeletal: No Clubbing, No Cyanosis and No Edema
Skin: Rash and Decubitus Ulcers (sacral)
Neuro: Nonverbal some communication via head gestures very limited.
# Acute on chronic anemia likely from upper GI bleed on anticoagulants v CKD
-Resumed Eliquis appears to be tolerating well.
-Hemoglobin 5.8 upon admission, transfused. transfused again 1 unit 02/22 - responded well
-EPO as per Renal
-cont to monitor cbc
-maintain hgb >7
- EGD: Esophagitis, no bleeding, clean based ulcer
-Use Protonix (pantoprazole) 40 mg PO BID for 8 weeks followed by once daily.
-GI consulted -signed off; if continuing to have drop in hemoglobin, will need to reengage GI
-Colonoscopy 12/27/2023: No source of bleeding multiple polypectomies proximal ascending colon, sigmoid colon removed with snare, internal hemorrhoids all benign neoplasm
-restarted ASA 02/20 and stable
-Restarted Eliquis 02/23 - so far H&H remains stable
#Sepsis
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
#Proctitis
-sharp excisional debridement performed with cautery and scissors 02/18
-wound cultures growing E-Coli, Proteus Mirabilis, Morganella moranii, enterococcus faecalis
-completed 13 days iv Zosyn as per ID monitor off abx
-wound care consulted
-ID consult appreciated
-Cdiff neg, blood culture neg
-no underlying abscess on CT imaging although possible proctitis
#Systolic Murmur possibly d/t Anemia since resolved
#Murmur possibly artifact, patient grinding teeth during auscultation
No need for ECHO at this time
#Hyponatremia
-cont hd
#Hypokalemia
-monitor and replete
#Transaminitis
-most likely 2/2 to sepsis
-RUQ sono unremarkable
-Hep soler neg
-Hold statin
# nodular parenchymal scarring suspected in the superior segment of the right lower lobe.
-Outpt follow-up CT in 1 year recommended
# History of CVA 2020
#bedbound for last 2 years per daughter
#Possible acute metabolic encephalopathy 2/2 infection as above, currently nonverbal, per daughter patient able to speak few words a few weeks ago
#Suspect underlying vascular dementia
-cont asa
-CT head appreciated no acute abn's, findings suggest possible NPH and severe small vessel ischemic disease.
-Difficult to correlate findings of possible NPH given patient has been bed bound for years, is anuric ESRD
-has had progressive cognitive decline since initial hospitalization November 2023 this year though this could be due to progressive vascular dementia as opposed to NPH
-outpt follow up with Neurology recommended
# Paroxysmal A-fib
-HR controlled
-restarted Eliquis - monitor hgb stable so far
# end-stage renal disease on dialysis
# Hyponatremia/hypokalemia/metabolic acidosis
-nephrology consult appreciated
# Type 2 diabetes
-sliding scale continued
-scheduled novolog 5U Q6H
-titrate insulin regimen as necessary.
#Dysphagia status post PEG tube
-All meds via PEG tube
-TF briefly held due to concerns GI bleed since resumed
-nutrition consult
HTN�benign multidrug-resistant
-Continue Norvasc 10 mg, clonidine transdermal patch, hydralazine 50 mg every 8h, losartan 100 mg
-CTM
#Hx CVA with immobility, dysphagia
#Seizure disorder
- hx EEG 01/04/24 no seizures
-Continue Vimpat 100 mg twice daily
-EEG repeating given AMS habitually grinding teeth
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
Keep head of bed raised to 30 degrees at all times
-May suction secretions
Hypophosphatemia
Hypokalemia
monitor and replete as necessary
#CAD prior NSTEMI,
#DVT prophylaxis
SCDs
#CODE STATUS:
-Full code
Art no longer involved in patient's care, stopped his involvement months ago as per daughter Marcela CHOPRA
discussed with patient's daughter Marcela CHOPRA
Total time spent on today's encounter was 40 minutes which included time spent in counseling the patient/family regarding diagnosis and treatment plan as listed above, goals of care, and symptom management. Case was discussed with nursing staff,
specialists, and care coordinators/case management. All labs and imaging personally reviewed by me. Remainder the time spent in detailed review of previous records, lab data, imaging, and other medical provider documentation.
Anticipated Discharge: 24 - 48 hours
Subjective/Interval History
-
Date of Service: March 02, 2024
nonverbal arousable to verbal stimuli. minimal communications via head gestures. Not talking. Asked if unable to talk, only vacant stare. Asked if patient has pain, shakes her head (recently received oral morphine).
Objective Data
-
Labs:
Laboratory Results
03/02/24
05:49
WBC 13.0 H
Hgb 8.1 L
Hct 24.9 L
Plt Count 411 H
Sodium 135
Potassium 4.1
Chloride 95 L
Carbon Dioxide 32 H
BUN 43 H
Creatinine 2.6 H
Glucose 186 H
Calcium 9.4
Vital Signs:
Vital Signs
Temp Pulse Resp BP Pulse Ox
98.7 F 68 19 134/51 100
03/02/24 04:41 03/02/24 06:00 03/02/24 06:00 03/02/24 06:00 03/02/24 07:09
I&O
03/01/24 03/02/24 03/03/24
06:59 06:59 06:59
Intake Total 1260 / 1260 600 / 600
Output Total 750 / 750
Balance 1260 / 1260 -150 / -150
--- NOTE | 2024-03-02 08:06 | W.PN.NEPH.PH ---
Today's Communication / Plan
-
HD sunday
Assessment/Plan
-
Assessment:
ESRD on HD tunneled dialysis catheter, ME[facility]
Acute on chronic anemia likely from upper GI bleed on anticoagulants
Infected sacral decub wound
leucocytosis
Paroxysmal A-fib
Type 2 diabetes with hyperglycemia
Elevated transaminase
Dysphagia status post PEG tube
HTN�benign multidrug-
Hx CVA with immobility, dysphagia
Seizure disorder
Dementia�severe
CAD prior NSTEMI
Hyponatremia
Plan:
Abx IV for decub
HD sunday
transfuse PRN
follow hgb
no need for echo currently
-
-
Date of Service: March 02, 2024
CC / HPI / ROS
-
Chief Complaint:
ESRD
History of Present Illness:
hgb stable 8.1
WBC up 13
BP stable
Review of Systems:
non verbal, on RA
follow simple commands
Labs
-
Labs:
WBC 13.0 10^3/uL (4.8-10.8) H 03/02/24 05:49
RBC 2.75 10^6/uL (4.20-5.40) L 03/02/24 05:49
Hgb 8.1 g/dL (12.0-16.0) L 03/02/24 05:49
Hct 24.9 % (37.0-47.0) L 03/02/24 05:49
Plt Count 411 10^3/uL (130-400) H 03/02/24 05:49
Sodium 135 mmol/L (135-145) 03/02/24 05:49
Potassium 4.1 mmol/L (3.5-5.1) 03/02/24 05:49
Chloride 95 mmol/L (98-107) L 03/02/24 05:49
Carbon Dioxide 32 mmol/L (22-30) H 03/02/24 05:49
BUN 43 mg/dl (7-17) H 03/02/24 05:49
Creatinine 2.6 mg/dL (0.6-1.0) H 03/02/24 05:49
eGFR 18.78 03/02/24 05:49
Glucose 186 mg/dl (70-99) H 03/02/24 05:49
Calcium 9.4 mg/dl (8.4-10.2) 03/02/24 05:49
Phosphorus 3.0 mg/dl (2.5-4.5) 03/02/24 05:49
Albumin 2.6 g/dl (3.5-5.0) L 02/25/24 05:27
Physical Exam
-
Vital Signs:
Vital Signs
Temp Pulse Resp BP Pulse Ox
98.7 F 68 19 134/51 100
03/02/24 04:41 03/02/24 06:00 03/02/24 06:00 03/02/24 06:00 03/02/24 07:09
Cardiovascular:: Regular rate and rhythm
Respiratory:: Bilateral: Coarse
Lung Excursion:: Normal
Abdomen:: Nontender and Soft
Bowel Sounds:: Normal
Extremity Edema:: None: Bilateral:
[2024-03-02] MEDS: VIMPAT 100 MG TUBE ×2 (08:16→21:41)
[2024-03-02] MEDS: FERROUS SULFATE ORAL LIQUID 300 MG TUBE (08:16)
[2024-03-02] MEDS: ELIQUIS 5 MG TUBE ×2 (08:17→21:41)
[2024-03-02] MEDS: DAKIN'S SOLUTION 0.125% 1/4 STRENGTH 1 ML TOPICAL (08:17)
[2024-03-02] MEDS: COZAAR 100 MG TUBE (08:17)
[2024-03-02] MEDS: NORVASC 10 MG TUBE (08:17)
[2024-03-02] MEDS: ASPIR LOW (ENTERIC COATED) 81 MG PO (08:17)
[2024-03-02] MEDS: PROTONIX IV 40 MG IV ×2 (08:18→21:41)
[2024-03-02] MEDS: NSS (PRESERVATIVE FREE) 10 ML IV ×2 (08:18→21:41)
--- NOTE | 2024-03-02 09:37 | PTCARENOTE ---
Assumed care of pt from night RN, pt non-verbal, opens eyes to verbal and tactile stimulation. TF infusing at goal rate of 50ml/hr with no water flush. Rectal trumpet in place for liquid stool. Dressing to sacrum, ischium, and heels CDI. Pt
repositioned in bed frequently. Mouth care provided. Will monitor through shift.
--- NOTE | 2024-03-02 10:03 | CM ---
Patient LTC patient with [facility]. Patient for possible return early next week per physician. CM will continue to follow for discharge planning needs.
Plan; return to [facility]
[2024-03-02 12:45] LABS: Glucose - Point of Care 177 mg/dl (70-99)
[2024-03-02 17:54] LABS: Glucose - Point of Care 164 mg/dl (70-99)
[2024-03-02] MEDS: DAKIN'S SOLUTION 0.125% 1/4 STRENGTH 473 ML TOPICAL (21:41)
--- NOTE | 2024-03-02 22:12 | PTCARENOTE ---
Assumed care of pt at 1900. Pt awakens to her name being called, has been non-verbal, did give a small nod 'yes' at an appropriate time but otherwise has not followed commands. Physical assessment completed, see nursing shift assessment flowsheet
for full details. PEG tube with tube feeds. SR 60s on monitor, SpO2 98% on RA.
[2024-03-03] VITALS (28 sets, daily range): BP systolic 115–157; BP diastolic 31–107; BMI 25.3
[2024-03-03] MEDS: NOVOLOG FLEXPEN-HIGH RESISTANCE 2 UNITS SC ×2 (00:20→17:30)
[2024-03-03] MEDS: APRESOLINE 100 MG TUBE ×2 (00:21→16:41)
[2024-03-03] MEDS: NOVOLOG FLEXPEN 5 UNITS SC ×4 (00:21→17:31)
[2024-03-03 00:31] LABS: Glucose - Point of Care 177 mg/dl (70-99)
[2024-03-03] MEDS: MORPHINE ORAL SOLUTION 2.5 MG TUBE (06:14)
[2024-03-03] MEDS: NOVOLOG FLEXPEN-HIGH RESISTANCE 1 UNITS SC ×2 (06:14→12:28)
[2024-03-03 06:16] LABS: Hematocrit 25.1 % (37.0-47.0); Hemoglobin 8.3 g/dL (12.0-16.0); Mean Corp Hgb Conc. 33.1 g/dL (33.0-37.0); Mean Corpuscular Hgb 30.3 pg (27.0-31.0); Mean Corpuscular Volume 91.6 fL (81.0-99.0); Mean Platelet Volume 9.5 fL (7.4-10.4); Platelet Count 440 10^3/uL (130-400); Red Blood Cell Count 2.74 10^6/uL (4.20-5.40); Red Cell Dist. Width 18.8 % (11.5-14.5); White Blood Cell Count 14.6 10^3/uL (4.8-10.8)
[2024-03-03 06:23] LABS: Glucose - Point of Care 123 mg/dl (70-99)
[2024-03-03 06:58] LABS: Blood Urea Nitrogen 59 mg/dl (7-17); Calcium 9.4 mg/dl (8.4-10.2); Carbon Dioxide 24 mmol/L (22-30); Chloride 96 mmol/L (98-107); Estimated Creatinine Clearance 14 ml/min; Glucose 125 mg/dl (70-99); Magnesium 2.1 mg/dl (1.6-2.3); Phosphorus 3.3 mg/dl (2.5-4.5); Potassium 4.3 mmol/L (3.5-5.1); Sodium 134 mmol/L (135-145); eGFR 14.11
[2024-03-03] MEDS: APRESOLINE TUBE (07:45)
[2024-03-03] MEDS: MANNITOL 25% 12.5 GRAMS IV ×2 (08:25→10:01)
[2024-03-03] MEDS: FLEXBUMIN 25% FOR HEMODIALYSIS 12.5 GRAMS IV ×2 (08:30→09:55)
[2024-03-03] MEDS: RETACRIT 10000 UNITS IV (08:38)
--- NOTE | 2024-03-03 09:37 | W.PN.NEPH.HD ---
Assessment
-
pt seen during HD
vitals stable at ~140
hb stable on high dose LAURA
CVC functions fine
Progress Note - Hemodialysis
-
Date of Service: March 03, 2024
Duration: 30 minutes and 3 hours
Potassium Bath: 3
Calcium Bath: 2.5
Opti-Dialyzer: 160
Ultrafiltration: Other (2.5-3kg)
Blood Flow: 400
Dialysate Flow: 600
Heparin: no
EPO: 15125
[2024-03-03] MEDS: NORVASC 10 MG TUBE (11:40)
[2024-03-03] MEDS: VIMPAT 100 MG TUBE ×2 (11:40→21:33)
[2024-03-03] MEDS: ELIQUIS 5 MG TUBE ×2 (11:40→21:33)
[2024-03-03] MEDS: ASPIR LOW (ENTERIC COATED) 81 MG PO (11:40)
[2024-03-03] MEDS: COZAAR 100 MG TUBE (11:40)
[2024-03-03] MEDS: NSS (PRESERVATIVE FREE) 10 ML IV ×2 (11:41→21:32)
[2024-03-03] MEDS: FERROUS SULFATE ORAL LIQUID 300 MG TUBE (11:41)
[2024-03-03] MEDS: PROTONIX IV 40 MG IV ×2 (11:42→21:33)
[2024-03-03 12:15] LABS: Glucose - Point of Care 117 mg/dl (70-99)
--- NOTE | 2024-03-03 12:33 | PTCARENOTE ---
Dialysis completed. Vital signs stable 133/43, 75, 20, afebrile 98.7 oral. Patient is objectively comfortable. Tolerating tube feeds. Oral care provided. Incontinent of bowel with rectal tube, anuric.
--- NOTE | 2024-03-03 13:21 | W.PN.ID1 ---
Date of Service
Date of Service: March 03, 2024
Today's Communication
Observe off antibiotics.
Assessment / Plan
Large/extensive sacral decubiti
- S/p debridement
- s/p course of abx.
Marked leukocytosis
- improved, but slight trend upward over the past several days
Transaminitis
A-fib
NIDDM
ESRD�HD
Seizure disorder
Dementia
Dysphagia s/p PEG
Anemia
GERD
Hx CVA
Chronic diastolic CHF
HTN
Recommendations:
Continue with local care to the sacral decubiti, including Dakin's solution to decrease overall superficial bioburden.
offloading of the wound as feasible - turn q2 hours
S/p course of Zosyn.
Trend white count and temperature
Size of wound, nutrition level, and underlying comorbidities of diabetes mellitus and end-stage renal disease all will negatively impact the patient's ability to heal.
Medium / meterman prognosis is poor to nil. Would expect recurrent hospitalizations and infections. Patient appears to be at least 'palliative care' appropriate.
����������������������������������������������������������
Chief Complaint
-: Leukocytosis and Other (Sacral decubiti)
Subjective / Review of Systems
Review of Systems: No Fever
Vital Signs / Physical Exam
Vital Signs
Vital Signs
Temp Pulse Resp BP Pulse Ox
98.7 F 79 14 133/43 100
03/03/24 11:32 03/03/24 12:00 03/03/24 12:00 03/03/24 12:00 03/03/24 11:45
Physical Exam
Constitutional: No Acute Distress, Comfortable, Chronically Ill and Non-toxic
Cardiovascular: S1/S2; Negative S3/S4
Pulmonary: Non Labored
Gastrointestinal: Soft, Non Distended and Normal Bowel Sounds
Wound: Other (Sacral wound dressed. Heel wounds dressed.)
Psychological: Calm
Lines: HD Cath
Objective Data
Lab Data
Lab Results
03/03/24 05:59
03/03/24 05:59
PT 18.8 Sec (11.4-14.6) H 02/18/24 12:58
INR 1.59 02/18/24 12:58
APTT 35.1 Sec (23.4-35.0) H 02/18/24 12:58
Estimated Creat Clear 14 ml/min 03/03/24 05:59
Lactic Acid Cancelled 02/18/24 14:15
Total Bilirubin 0.4 mg/dl (0.2-1.3) 02/25/24 05:27
AST 30 U/L (14-36) 02/25/24 05:27
ALT 32 U/L (0-35) 02/25/24 05:27
Alkaline Phosphatase 208 U/L (38-126) H 02/25/24 05:27
Most recent labs reviewed.
Micro Results:
02/19/24 16:36 Blood Culture - Final
Blood/Venous No Growth - Final Report
02/19/24 14:41 Wound Culture - Final
Sacral Escherichia coli
Proteus mirabilis
Morganella morganii
Enterococcus faecalis
Gram Stain - Final
02/19/24 14:41 Anaerobic Culture - Final
Sacral
02/21/24 21:48 C. difficile GDH Antigen & Toxins - Final
Feces/Stool Negative for toxigenic C.difficile
02/18/24 17:19 Wound Culture - Final
Sacral Gram Stain - Final
02/18/24 17:19 Wound Culture - Final
Decubitis Ulcer Gram Stain - Final
Imaging:
02/20/2024 CT chest/abdomen/pelvis: No evidence of pneumonia. No acute inflammatory process within the abdomen. Findings suspicious for proctitis, but without acute diverticulitis. No CT evidence to suggest discitis or osteomyelitis.
[2024-03-03] MEDS: DAKIN'S SOLUTION 0.125% 1/4 STRENGTH TOPICAL (13:58)
--- NOTE | 2024-03-03 15:51 | W.PN.HOSP.TC ---
Today's Communication/Plan
-
monitor wbc, fever curve off abx
Assessment / Plan
Assessment / Plan
Physical Exam
General: No Apparent Distress, appears comfortable
HEENT: NormoCephalic, Moist mucous membranes and Atraumatic
Respiratory: Clear
Cardiac: S1/S2 and Regular Rhythm; no Murmur
GI: Soft, Non Tender, Non Distended and Normal Bowel Sounds; No Organomegaly
Musculoskeletal: No Clubbing, No Cyanosis and No Edema
Skin: Rash and Decubitus Ulcers (sacral)
Neuro: Nonverbal some communication via head gestures very limited.
# Acute on chronic anemia likely from upper GI bleed on anticoagulants v CKD
-Resumed Eliquis appears to be tolerating well.
-Hemoglobin 5.8 upon admission, transfused. transfused again 1 unit 02/22 - responded well
-EPO as per Renal
-cont to monitor cbc
-maintain hgb >7
- EGD: Esophagitis, no bleeding, clean based ulcer
-Use Protonix (pantoprazole) 40 mg PO BID for 8 weeks followed by once daily.
-GI consulted -signed off; if continuing to have drop in hemoglobin, will need to reengage GI
-Colonoscopy 12/27/2023: No source of bleeding multiple polypectomies proximal ascending colon, sigmoid colon removed with snare, internal hemorrhoids all benign neoplasm
-restarted ASA 02/20 and stable
-Restarted Eliquis 02/23 - so far H&H remains stable
#Sepsis
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
#Proctitis
-sharp excisional debridement performed with cautery and scissors 02/18
-wound cultures growing E-Coli, Proteus Mirabilis, Morganella moranii, enterococcus faecalis
-completed 13 days iv Zosyn as per ID monitor off abx; wbc up today slightly -cont to monitor wbc, fever curve
-wound care consulted
-ID consult appreciated
-Cdiff neg, blood culture neg
-no underlying abscess on CT imaging although possible proctitis
#Systolic Murmur possibly d/t Anemia since resolved
#Murmur possibly artifact, patient grinding teeth during auscultation
No need for ECHO at this time
#Hyponatremia
-cont hd
#Hypokalemia
-monitor and replete
#Transaminitis
-most likely 2/2 to sepsis
-RUQ sono unremarkable
-Hep soler neg
-Hold statin
# nodular parenchymal scarring suspected in the superior segment of the right lower lobe.
-Outpt follow-up CT in 1 year recommended
# History of CVA 2020
#bedbound for last 2 years per daughter
#Possible acute metabolic encephalopathy 2/2 infection as above, currently nonverbal, per daughter patient able to speak few words a few weeks ago
#Suspect underlying vascular dementia
-cont asa
-CT head appreciated no acute abn's, findings suggest possible NPH and severe small vessel ischemic disease.
-Difficult to correlate findings of possible NPH given patient has been bed bound for years, is anuric ESRD
-has had progressive cognitive decline since initial hospitalization November 2023 this year though this could be due to progressive vascular dementia as opposed to NPH
-outpt follow up with Neurology recommended
# Paroxysmal A-fib
-HR controlled
-restarted Eliquis - monitor hgb stable so far
# end-stage renal disease on dialysis
# Hyponatremia/hypokalemia/metabolic acidosis
-nephrology consult appreciated
# Type 2 diabetes
-sliding scale continued
-scheduled novolog 5U Q6H
-titrate insulin regimen as necessary.
#Dysphagia status post PEG tube
-All meds via PEG tube
-TF briefly held due to concerns GI bleed since resumed
-nutrition consult
HTN�benign multidrug-resistant
-Continue Norvasc 10 mg, clonidine transdermal patch, hydralazine 50 mg every 8h, losartan 100 mg
-CTM
#Hx CVA with immobility, dysphagia
#Seizure disorder
- hx EEG 01/04/24 no seizures
-Continue Vimpat 100 mg twice daily
-EEG repeating given AMS habitually grinding teeth
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
Keep head of bed raised to 30 degrees at all times
-May suction secretions
Hypophosphatemia
Hypokalemia
monitor and replete as necessary
#CAD prior NSTEMI,
#DVT prophylaxis
SCDs
#CODE STATUS:
-Full code
Art no longer involved in patient's care, stopped his involvement months ago as per daughter Marcela CHOPRA
Total time spent on today's encounter was 45 minutes which included time spent in counseling the patient/family regarding diagnosis and treatment plan as listed above, goals of care, and symptom management. Case was discussed with nursing staff,
specialists, and care coordinators/case management. All labs and imaging personally reviewed by me. Remainder the time spent in detailed review of previous records, lab data, imaging, and other medical provider documentation.
Anticipated Discharge: Within 24 hours
Subjective/Interval History
-
Date of Service: March 03, 2024
No acute events overnight
Objective Data
-
Labs:
Laboratory Results
03/03/24
05:59
WBC 14.6 H
Hgb 8.3 L
Hct 25.1 L
Plt Count 440 H
Sodium 134 L
Potassium 4.3
Chloride 96 L
Carbon Dioxide 24
BUN 59 H
Creatinine 3.3 H
Glucose 125 H
Calcium 9.4
Vital Signs:
Vital Signs
Temp Pulse Resp BP Pulse Ox
98.7 F 79 14 133/43 100
03/03/24 11:32 03/03/24 12:00 03/03/24 12:00 03/03/24 12:00 03/03/24 11:45
I&O
03/02/24 03/03/24 03/04/24
06:59 06:59 06:59
Intake Total 600 / 600 975 / 975 410 / 410
Output Total 750 / 750
Balance -150 / -150 975 / 975 410 / 410
Review of Systems
-
History Source: Patient
All other systems: Not reviewed unless documented
Physical Exam
-
General: Well Developed, Well Nourished, No Apparent Distress and Comfortable
Respiratory: Decreased Breath Sounds
Cardiac: Regular Rhythm, S1/S2 and Murmur
GI: Soft, Nondistended and Peg Tube
Skin: Warm and Dry
Neuro: Awake, Alert and Other (gives simple one word answers)
Psych: Calm and Apparent Dementia; Negative Intact Judgement/Insight
Data Reviewed
-
Diagnostic Radiology: Report Reviewed by me
CT Scan: Image personally visualized and interpreted and Report Reviewed by me
Ultrasound: Report Reviewed by me
Labs: Labs Reviewed by me
[2024-03-03 17:40] LABS: Glucose - Point of Care 157 mg/dl (70-99)
[2024-03-03] MEDS: DAKIN'S SOLUTION 0.125% 1/4 STRENGTH 473 ML TOPICAL (21:33)
--- NOTE | 2024-03-03 23:00 | PTCARENOTE ---
Caring for patient overnight. No assessment changes. NSR, remains on RA. Tube feeds continues. Q2T. Wound care. Will monitor.
[2024-03-03 23:36] LABS: Glucose - Point of Care 218 mg/dl (70-99)
[2024-03-04] VITALS (15 sets, daily range): BP systolic 100–135; BP diastolic 28–52; BMI 25.2
[2024-03-04] MEDS: NOVOLOG FLEXPEN 5 UNITS SC ×5 (00:07→23:21)
[2024-03-04] MEDS: NOVOLOG FLEXPEN-HIGH RESISTANCE 4 UNITS SC (00:07)
[2024-03-04] MEDS: APRESOLINE 100 MG TUBE ×2 (00:07→17:40)
[2024-03-04] MEDS: MORPHINE ORAL SOLUTION 2.5 MG TUBE ×2 (05:12→12:08)
[2024-03-04] MEDS: NOVOLOG FLEXPEN-HIGH RESISTANCE 1 UNITS SC (05:18)
[2024-03-04 05:28] LABS: Glucose - Point of Care 134 mg/dl (70-99)
[2024-03-04 05:51] LABS: Hematocrit 23.7 % (37.0-47.0); Hemoglobin 7.6 g/dL (12.0-16.0); Mean Corp Hgb Conc. 32.1 g/dL (33.0-37.0); Mean Corpuscular Hgb 30.3 pg (27.0-31.0); Mean Corpuscular Volume 94.4 fL (81.0-99.0); Mean Platelet Volume 9.5 fL (7.4-10.4); Platelet Count 429 10^3/uL (130-400); Red Blood Cell Count 2.51 10^6/uL (4.20-5.40); White Blood Cell Count 12.4 10^3/uL (4.8-10.8)
[2024-03-04 05:56] LABS: ALT (SGPT) 16 U/L (0-35); AST (SGOT) 23 U/L (14-36); Alkaline Phosphatase 199 U/L (38-126); Blood Urea Nitrogen 39 mg/dl (7-17); Calcium 9.1 mg/dl (8.4-10.2); Carbon Dioxide 27 mmol/L (22-30); Chloride 98 mmol/L (98-107); Estimated Creatinine Clearance 21 ml/min; Glucose 130 mg/dl (70-99); Potassium 4.1 mmol/L (3.5-5.1); Sodium 136 mmol/L (135-145); Total Bilirubin 0.3 mg/dl (0.2-1.3); Total Protein 5.8 g/dl (6.3-8.2); eGFR 22.95
[2024-03-04] MEDS: FERROUS SULFATE ORAL LIQUID 300 MG TUBE (08:28)
[2024-03-04] MEDS: NSS (PRESERVATIVE FREE) 10 ML IV ×2 (08:28→21:43)
[2024-03-04] MEDS: VIMPAT 100 MG TUBE ×2 (08:29→21:43)
[2024-03-04] MEDS: PROTONIX IV 40 MG IV ×2 (08:29→21:42)
[2024-03-04] MEDS: DAKIN'S SOLUTION 0.125% 1/4 STRENGTH 473 ML TOPICAL ×2 (08:34→21:43)
[2024-03-04 11:19] LABS: Glucose - Point of Care 162 mg/dl (70-99)
--- NOTE | 2024-03-04 11:46 | W.PN.NEPH.PH ---
Today's Communication / Plan
-
HD tomorrow
Assessment/Plan
-
Assessment:
ESRD on HD tunneled dialysis catheter, [facility]
Acute on chronic anemia likely from upper GI bleed on anticoagulants
Infected sacral decub wound
leucocytosis
Paroxysmal A-fib
Type 2 diabetes with hyperglycemia
Elevated transaminase
Dysphagia status post PEG tube
HTN�benign multidrug-
Hx CVA with immobility, dysphagia
Seizure disorder
Dementia�severe
CAD prior NSTEMI
Hyponatremia
Plan:
monitor hb -decreasing, prn trasnfusion
completed abx for decub
HD tomorrow
BP are stable
murmur on exam-consider echo
-
-
Date of Service: March 04, 2024
CC / HPI / ROS
-
Chief Complaint:
ESRD
History of Present Illness:
hgb down to 7.6
WBC improving to 12.4
BP stable
Review of Systems:
non verbal, on RA
no fever
Labs
-
Labs:
WBC 12.4 10^3/uL (4.8-10.8) H 03/04/24 05:17
RBC 2.51 10^6/uL (4.20-5.40) L 03/04/24 05:17
Hgb 7.6 g/dL (12.0-16.0) L 03/04/24 05:17
Hct 23.7 % (37.0-47.0) L 03/04/24 05:17
Plt Count 429 10^3/uL (130-400) H 03/04/24 05:17
Sodium 136 mmol/L (135-145) 03/04/24 05:17
Potassium 4.1 mmol/L (3.5-5.1) 03/04/24 05:17
Chloride 98 mmol/L (98-107) 03/04/24 05:17
Carbon Dioxide 27 mmol/L (22-30) 03/04/24 05:17
BUN 39 mg/dl (7-17) H 03/04/24 05:17
Creatinine 2.2 mg/dL (0.6-1.0) H 03/04/24 05:17
eGFR 22.95 03/04/24 05:17
Glucose 130 mg/dl (70-99) H 03/04/24 05:17
Calcium 9.1 mg/dl (8.4-10.2) 03/04/24 05:17
Phosphorus 3.3 mg/dl (2.5-4.5) 03/03/24 05:59
Albumin 3.0 g/dl (3.5-5.0) L 03/04/24 05:17
Physical Exam
-
Vital Signs:
Vital Signs
Temp Pulse Resp BP Pulse Ox
99.3 F 67 17 116/40 100
03/04/24 08:26 03/04/24 08:00 03/04/24 08:00 03/04/24 08:00 03/04/24 08:40
Cardiovascular:: Regular rate and rhythm (Systolic murmur in aortic area)
Respiratory:: Bilateral: CTA (decreased)
Lung Excursion:: Normal
Abdomen:: Nontender and Soft
Extremity Edema:: None: Bilateral:
Castañeda Catheter: No
[2024-03-04] MEDS: ASPIR LOW (ENTERIC COATED) 81 MG PO (12:00)
[2024-03-04] MEDS: ELIQUIS 5 MG TUBE ×2 (12:00→21:42)
[2024-03-04] MEDS: NORVASC 10 MG TUBE (12:00)
[2024-03-04] MEDS: APRESOLINE TUBE ×2 (12:07→23:24)
[2024-03-04] MEDS: COZAAR 100 MG TUBE (12:08)
[2024-03-04] MEDS: NOVOLOG FLEXPEN-HIGH RESISTANCE 2 UNITS SC ×3 (12:30→23:21)
--- NOTE | 2024-03-04 14:45 | W.PN.HOSP.TC ---
Today's Communication/Plan
-
monitor hgb
hd with epo
hapto, ldh
echo
Assessment / Plan
Assessment / Plan
Physical Exam
General: No Apparent Distress, appears comfortable
HEENT: NormoCephalic, Moist mucous membranes and Atraumatic
Respiratory: Clear
Cardiac: S1/S2 and Regular Rhythm; no Murmur
GI: Soft, Non Tender, Non Distended and Normal Bowel Sounds; No Organomegaly
Musculoskeletal: No Clubbing, No Cyanosis and No Edema
Skin: Rash and Decubitus Ulcers (sacral)
Neuro: Nonverbal some communication via head gestures very limited.
# Acute on chronic anemia likely from upper GI bleed on anticoagulants v CKD
-Resumed Eliquis appears to be tolerating well.
-Hemoglobin 5.8 upon admission, transfused. transfused again 1 unit 02/22 - responded well
-EPO as per Renal
-cont to monitor cbc
-maintain hgb >7
- EGD: Esophagitis, no bleeding, clean based ulcer
-Use Protonix (pantoprazole) 40 mg PO BID for 8 weeks followed by once daily.
-GI consulted -signed off; if continuing to have drop in hemoglobin, will need to reengage GI
-Colonoscopy 12/27/2023: No source of bleeding multiple polypectomies proximal ascending colon, sigmoid colon removed with snare, internal hemorrhoids all benign neoplasm
-restarted ASA 02/20 and stable
-Restarted Eliquis 02/23 - so far H&H remains stable
-f/u ldh, haptoglobin
#Sepsis
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
#Proctitis
-sharp excisional debridement performed with cautery and scissors 02/18
-wound cultures growing E-Coli, Proteus Mirabilis, Morganella moranii, enterococcus faecalis
-completed 13 days iv Zosyn as per ID monitor off abx; wbc up was up - now trending down - ctm
Murmur on exam - f/u ECHO prior to dc
-wound care consulted
-ID consult appreciated
-Cdiff neg, blood culture neg
-no underlying abscess on CT imaging although possible proctitis
#Systolic Murmur possibly d/t Anemia since resolved
#Murmur possibly artifact, patient grinding teeth during auscultation
-will obtain echo regardless since nothing recent in our system
#Hyponatremia
-cont hd
#Hypokalemia
-monitor and replete
#Transaminitis
-most likely 2/2 to sepsis
-RUQ sono unremarkable
-Hep soler neg
-Hold statin
# nodular parenchymal scarring suspected in the superior segment of the right lower lobe.
-Outpt follow-up CT in 1 year recommended
# History of CVA 2020
#bedbound for last 2 years per daughter
#Possible acute metabolic encephalopathy 2/2 infection as above, currently nonverbal, per daughter patient able to speak few words a few weeks ago
#Suspect underlying vascular dementia
-cont asa
-CT head appreciated no acute abn's, findings suggest possible NPH and severe small vessel ischemic disease.
-Difficult to correlate findings of possible NPH given patient has been bed bound for years, is anuric ESRD
-has had progressive cognitive decline since initial hospitalization November 2023 this year though this could be due to progressive vascular dementia as opposed to NPH
-outpt follow up with Neurology recommended
# Paroxysmal A-fib
-HR controlled
-restarted Eliquis - monitor hgb stable so far
# end-stage renal disease on dialysis
# Hyponatremia/hypokalemia/metabolic acidosis
-nephrology consult appreciated
# Type 2 diabetes
-sliding scale continued
-scheduled novolog 5U Q6H
-titrate insulin regimen as necessary.
#Dysphagia status post PEG tube
-All meds via PEG tube
-TF briefly held due to concerns GI bleed since resumed
-nutrition consult
HTN�benign multidrug-resistant
-Continue Norvasc 10 mg, clonidine transdermal patch, hydralazine 50 mg every 8h, losartan 100 mg
-CTM
#Hx CVA with immobility, dysphagia
#Seizure disorder
- hx EEG 01/04/24 no seizures
-Continue Vimpat 100 mg twice daily
-EEG repeating given AMS habitually grinding teeth
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
Keep head of bed raised to 30 degrees at all times
-May suction secretions
Hypophosphatemia
Hypokalemia
monitor and replete as necessary
#CAD prior NSTEMI,
#DVT prophylaxis
SCDs
#CODE STATUS:
-Full code
Art no longer involved in patient's care, stopped his involvement months ago as per daughter Marcela CHOPRA
Total time spent on today's encounter was 45 minutes which included time spent in counseling the patient/family regarding diagnosis and treatment plan as listed above, goals of care, and symptom management. Case was discussed with nursing staff,
specialists, and care coordinators/case management. All labs and imaging personally reviewed by me. Remainder the time spent in detailed review of previous records, lab data, imaging, and other medical provider documentation.
Anticipated Discharge: 24 - 48 hours
Subjective/Interval History
-
Date of Service: March 04, 2024
No acute events
Objective Data
-
Labs:
Laboratory Results
03/04/24
05:17
WBC 12.4 H
Hgb 7.6 L
Hct 23.7 L
Plt Count 429 H
Sodium 136
Potassium 4.1
Chloride 98
Carbon Dioxide 27
BUN 39 H
Creatinine 2.2 H
Glucose 130 H
Calcium 9.1
Total Bilirubin 0.3
AST 23
ALT 16
Alkaline Phosphatase 199 H
Vital Signs:
Vital Signs
Temp Pulse Resp BP Pulse Ox
98.9 F 62 8 109/42 100
03/04/24 11:35 03/04/24 14:00 03/04/24 14:00 03/04/24 14:00 03/04/24 14:00
I&O
03/03/24 03/04/24 03/05/24
06:59 06:59 06:59
Intake Total 975 / 975 1130 / 1130 250 / 250
Output Total 100 / 100
Balance 975 / 975 1030 / 1030 250 / 250
Review of Systems
-
History Source: Patient
All other systems: Not reviewed unless documented
Physical Exam
-
General: Well Developed, Well Nourished, No Apparent Distress and Comfortable
Respiratory: Decreased Breath Sounds
Cardiac: Regular Rhythm, S1/S2 and Murmur
GI: Soft, Nondistended and Peg Tube
Skin: Warm and Dry
Neuro: Awake, Alert and Other (gives simple one word answers)
Psych: Calm and Apparent Dementia; Negative Intact Judgement/Insight
Data Reviewed
-
Diagnostic Radiology: Report Reviewed by me
CT Scan: Image personally visualized and interpreted and Report Reviewed by me
Ultrasound: Report Reviewed by me
Labs: Labs Reviewed by me
--- NOTE | 2024-03-04 14:46 | W.PN.ID1 ---
Date of Service
Date of Service: March 04, 2024
Today's Communication
Continue to observe off of antibiotics.
Assessment / Plan
Large/extensive sacral decubiti
- S/p debridement
- s/p course of abx.
Marked leukocytosis
- improved
Transaminitis
-Resolved
A-fib
NIDDM
ESRD�HD
Seizure disorder
Dementia
Dysphagia s/p PEG
Anemia
GERD
Hx CVA
Chronic diastolic CHF
HTN
Recommendations:
S/p course of Zosyn.
Continue with local care to the sacral decubiti, including Dakin's solution to decrease overall superficial bioburden.
offloading of the wound as feasible - turn q2 hours
Trend white count and temperature
Size of wound, nutrition level, and underlying comorbidities of diabetes mellitus and end-stage renal disease all will negatively impact the patient's ability to heal.
Medium / ad terminal makeup operator prognosis is poor to nil. Would expect recurrent hospitalizations and infections. Patient appears to be at least 'palliative care' appropriate.
����������������������������������������������������������
Chief Complaint
-: Leukocytosis and Other (Sacral decubiti)
Subjective / Review of Systems
Review of Systems: No Fever
Vital Signs / Physical Exam
Vital Signs
Vital Signs
Temp Pulse Resp BP Pulse Ox
98.9 F 62 8 109/42 100
03/04/24 11:35 03/04/24 14:00 03/04/24 14:00 03/04/24 14:00 03/04/24 14:00
Physical Exam
Constitutional: No Acute Distress, Comfortable, Chronically Ill and Non-toxic
Head: Normocephalic
Cardiovascular: S1/S2; Negative S3/S4
Pulmonary: Clear and Non Labored
Gastrointestinal: Soft, Non Distended and Normal Bowel Sounds
Extremities: Negative Cyanosis or Erythema
Skin: Negative Rash or Jaundice
Wound: Other (Sacral wound dressed. Heel wounds dressed.)
Psychological: Calm
Lines: HD Cath
Objective Data
Lab Data
Lab Results
03/04/24 05:17
03/04/24 05:17
PT 18.8 Sec (11.4-14.6) H 02/18/24 12:58
INR 1.59 02/18/24 12:58
APTT 35.1 Sec (23.4-35.0) H 02/18/24 12:58
Estimated Creat Clear 21 ml/min 03/04/24 05:17
Lactic Acid Cancelled 02/18/24 14:15
Total Bilirubin 0.3 mg/dl (0.2-1.3) 03/04/24 05:17
AST 23 U/L (14-36) 03/04/24 05:17
ALT 16 U/L (0-35) 03/04/24 05:17
Alkaline Phosphatase 199 U/L (38-126) H 03/04/24 05:17
Most recent labs reviewed.
Micro Results:
02/19/24 16:36 Blood Culture - Final
Blood/Venous No Growth - Final Report
02/19/24 14:41 Wound Culture - Final
Sacral Escherichia coli
Proteus mirabilis
Morganella morganii
Enterococcus faecalis
Gram Stain - Final
02/19/24 14:41 Anaerobic Culture - Final
Sacral
02/21/24 21:48 C. difficile GDH Antigen & Toxins - Final
Feces/Stool Negative for toxigenic C.difficile
02/18/24 17:19 Wound Culture - Final
Sacral Gram Stain - Final
02/18/24 17:19 Wound Culture - Final
Decubitis Ulcer Gram Stain - Final
Imaging:
02/20/2024 CT chest/abdomen/pelvis: No evidence of pneumonia. No acute inflammatory process within the abdomen. Findings suspicious for proctitis, but without acute diverticulitis. No CT evidence to suggest discitis or osteomyelitis.
[2024-03-04 15:31] LABS: LDH 121 U/L (120-246)
--- NOTE | 2024-03-04 16:18 | CM ---
Chart reviewed and patient to return to [facility] senior care care when stable, update sent through [facility]. HD on Sunday will need to fax updated flow sheets.
Plan; Patient to return to [facility]
Report [phone]
[2024-03-04 17:50] LABS: Glucose - Point of Care 181 mg/dl (70-99)
--- NOTE | 2024-03-04 17:51 | PTCARENOTE ---
Patient wound care performed per order, pt had 2x bowel movement this shift, plan is for HD tomorrow, tube feeds continue, afebrile this shift, morphine given for CPOT 3 per order
[2024-03-04 23:30] LABS: Glucose - Point of Care 195 mg/dl (70-99)
[2024-03-05] VITALS (27 sets, daily range): BP systolic 91–152; BP diastolic 31–65; BMI 24.6
[2024-03-05 05:58] LABS: Glucose - Point of Care 201 mg/dl (70-99)
--- NOTE | 2024-03-05 06:12 | W.PN.UPDATE ---
Update Note
Progress Note Update
Peg tube dislodged this am, GI consult for peg tube replacement.
[2024-03-05] MEDS: NOVOLOG FLEXPEN 5 UNITS SC ×2 (06:32→16:51)
[2024-03-05] MEDS: NOVOLOG FLEXPEN-HIGH RESISTANCE 4 UNITS SC (06:32)
[2024-03-05 06:43] LABS: Hematocrit 24.6 % (37.0-47.0); Hemoglobin 7.8 g/dL (12.0-16.0); Mean Corp Hgb Conc. 31.7 g/dL (33.0-37.0); Mean Corpuscular Hgb 29.2 pg (27.0-31.0); Mean Corpuscular Volume 92.1 fL (81.0-99.0); Mean Platelet Volume 9.7 fL (7.4-10.4); Platelet Count 500 10^3/uL (130-400); Red Blood Cell Count 2.67 10^6/uL (4.20-5.40); Red Cell Dist. Width 18.8 % (11.5-14.5); White Blood Cell Count 15.6 10^3/uL (4.8-10.8)
[2024-03-05 07:11] LABS: ALT (SGPT) 16 U/L (0-35); AST (SGOT) 23 U/L (14-36); Alkaline Phosphatase 205 U/L (38-126); Blood Urea Nitrogen 58 mg/dl (7-17); Calcium 9.5 mg/dl (8.4-10.2); Carbon Dioxide 26 mmol/L (22-30); Chloride 97 mmol/L (98-107); Estimated Creatinine Clearance 14 ml/min; Glucose 194 mg/dl (70-99); Potassium 4.7 mmol/L (3.5-5.1); Sodium 135 mmol/L (135-145); Total Bilirubin 0.3 mg/dl (0.2-1.3); Total Protein 5.9 g/dl (6.3-8.2); eGFR 14.64
--- NOTE | 2024-03-05 07:28 | W.PN.GI.CBS2 ---
Addendum entered and electronically signed by Sukhjinder Ledesma DO 03/05/24 10:50:
I saw and examined the patient.
The SERVICES DELIVERY DRIVER's note was reviewed and I agree with the note.
Comment: See previous consultation earlier on admission dated back on 02/18/2024. Re-contacted given concern for displaced PEG overnight. Fortunately, pretty catheter placed by nursing in hopes of maintaining tract. Replaced peg as below and agree with
tube check prior to restarting tube feeds, medications and/or FWF. Please DO NOT use PEG prior to tube check. No signs of overt GI bleeding and would further opt for ongoing conservative management moving forward. Will f/u tube study later today.
Original Note:
Today's Communication / Plan
-
reconsult for peg falling out with balloon deflated overnight
site now with pretty in place and some small amount blood oozing around opening
prior tube at 7 per nursing noted
pretty removed unable to place and expand #20 turkmen tube then placed #18 turkmen tube with some initial resistant then advanced to 6-8 with balloon expansion
will check tube for placement with peg check prior to use
reviewed with nursing staff no use til placement confirmed
currently off antibiotics ID following
cont PPI BID
hbg stable since admission
recent EGD and colon completed in December
if signs of aggressive bleeding will need to review with family for work up as recently completed EGD/colon-- enteroscopy vs SB capsule-- if capsule needed would need to be endoscopically placed with hx dysphagia and chronic peg
Assessment / Plan
-
73 y/o female with PMH of CVA with aphasia, dysphagia with PEG tube, ESRD chronic anemia on oral iron, DVT/PAF on eliquis 5 mg, CAD with prior STEMI , HTN, DM, sacral decub, and Seizure disorder who presents to the ER with decreased Hgb. On
admission noted with hbg 5.8 with BUN up to 133 but also marked elevated WBC's up to 48,200 with sepsis with large purulent necrotic sacral wound. Pt was admitted in December with anemia. EGD at that time with normal esophagus and peg in stomach.
colon with TA polyps and hemorrhoids. Since admission hbg 7-8 range with treatment of sepsis. Now asked to see for peg malfunction.
-peg tub malfunction with tube falling out
-anemia with hx chronic anemia
-sepsis with large necrotic sacral wound
-marked leukocytosis on admission now improving
-DVT/PAF on Eliquis
other medical problems:
-CVA with chronic aphasia
-ESRD on HD
-CAD with prior STEMI
-HTN
-DM
-sacral decub
-seizure d/o
PLAN:
reconsult for peg falling out with balloon deflated overnight
site now with pretty in place and some small amount blood oozing around opening
prior tube at 7 per nursing noted
pretty removed unable to place and expand #20 turkmen tube then placed #18 turkmen tube with some initial resistant then advanced to 6-8 with balloon expansion
will check tube for placement with peg check prior to use
reviewed with nursing staff no use til placement confirmed
currently off antibiotics ID following
cont PPI BID
hbg stable since admission
recent EGD and colon completed in December
if signs of aggressive bleeding will need to review with family for work up as recently completed EGD/colon-- enteroscopy vs SB capsule-- if capsule needed would need to be endoscopically placed with hx dysphagia and chronic peg
-
Subjective
Subjective
Date of Service: March 05, 2024
asked to reassess as peg fell out overnight -- pretty relaced by RN to keep track open
Objective
Data Reviewed
Laboratory Data:
Laboratory Results
03/05/24 05:47
03/05/24 05:47
Laboratory Results
PT 18.8 Sec (11.4-14.6) H 02/18/24 12:58
INR 1.59 02/18/24 12:58
APTT 35.1 Sec (23.4-35.0) H 02/18/24 12:58
Phosphorus 3.3 mg/dl (2.5-4.5) 03/03/24 05:59
Magnesium 2.1 mg/dl (1.6-2.3) 03/03/24 05:59
Total Bilirubin 0.3 mg/dl (0.2-1.3) 03/05/24 05:47
AST 23 U/L (14-36) 03/05/24 05:47
ALT 16 U/L (0-35) 03/05/24 05:47
Alkaline Phosphatase 205 U/L (38-126) H 03/05/24 05:47
Vital Signs and I&O:
Vital Signs
Temp Pulse Resp BP Pulse Ox
99.1 F 71 6 123/46 100
03/05/24 03:54 03/04/24 18:00 03/04/24 18:00 03/04/24 18:00 03/04/24 22:00
I&O
03/04/24 03/05/24 03/06/24
06:59 06:59 06:59
Intake Total 1130 / 1130 640 / 640
Output Total 100 / 100
Balance 1030 / 1030 640 / 640
Physical Exam
Physical Exam
HEENT: Anicteric
Cardiology: Normal Sinus Rhythm
Pulmonary: Clear
GI: Soft, Non Distended, Tender (minimal tenderness around peg site with some oozing small amounts of red blood ) and Other (noted with pretty in placed. Prior tube at 7 per nursing staff- I had some difficulty advancing 20 turkmen peg with expanding
balloon. I placed 18 turkmen endofit tube with initial difficuly but then advance to around 7-8 with ability to blow up balloon )
Extremities: No Edema
Neuro: Other (non verbal on exam )
--- NOTE | 2024-03-05 07:45 | PTCARENOTE ---
Cared for patient overnight. Pt nonverbal, opens eyes to verbal. Can follow commands and squeeze hands on command, R absent, L weak. Tube feeds were running all night, no issues, this AM pt's PEG got dislodged. HAND COUNTER made aware, orders to place pretty
in place to keep site open. GI consulted & at bedside to replace. Q2T. Sacral wound change. Waffle boots in place. NSR on monitor, remains RA. No other issues at this time. Will monitor.
[2024-03-05] MEDS: MANNITOL 25% 12.5 GRAMS IV ×2 (08:15→09:45)
[2024-03-05] MEDS: FLEXBUMIN 25% FOR HEMODIALYSIS 12.5 GRAMS IV ×2 (08:20→09:47)
[2024-03-05] MEDS: RETACRIT 12000 UNITS IV (08:33)
--- NOTE | 2024-03-05 08:39 | PTCARENOTE ---
Pt's PEG tube replaced by GI RORY Ordonez, awaiting tube check at this time. HD stared at 0700.
--- NOTE | 2024-03-05 09:36 | W.PN.NEPH.HD ---
Assessment
-
Seen on HD. no new issues. Hgb drifting down. VSS, access ok
Progress Note - Hemodialysis
-
Date of Service: March 05, 2024
Duration: 30 minutes and 3 hours
Potassium Bath: 2
Calcium Bath: 2.5
Opti-Dialyzer: 160
Ultrafiltration: Other (2kg)
Blood Flow: 400
Dialysate Flow: 600
Heparin: no
EPO: 05230 units
--- NOTE | 2024-03-05 10:40 | W.PN.ID1 ---
Date of Service
Date of Service: March 05, 2024
Today's Communication
Follow-up pending cultures. Observe off antibiotics for now. Will consider reinitiation of antibiotics if temperatures persist.
Assessment / Plan
Large/extensive sacral decubiti
- S/p debridement
- s/p course of abx.
Leukocytosis
-Overall improved, but remains elevated. Slight increase today.
Transaminitis
-Resolved
A-fib
NIDDM
ESRD�HD
Seizure disorder
Dementia
Dysphagia s/p PEG
Anemia
GERD
Hx CVA
Chronic diastolic CHF
HTN
Recommendations:
S/p course of Zosyn. Off antibiotics x 4 days.
Fever noted this a.m. Blood cultures have been ordered and collected.
Multiple potential sources of fever, including aspiration pneumonia, HD line, large decubiti, others
Continue with local care to the sacral decubiti, including Dakin's solution to decrease overall superficial bioburden.
offloading of the wound as feasible - turn q2 hours
Trend white count and temperature
Size of wound, nutrition level, and underlying comorbidities of diabetes mellitus and end-stage renal disease all will negatively impact the patient's ability to heal.
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 Would expect recurrent hospitalizations and infections. Patient appears to be at least 'palliative care' appropriate.
����������������������������������������������������������
Chief Complaint
-: Leukocytosis and Other (Sacral decubiti)
Subjective / Review of Systems
Patient seen and examined. Fever noted today.
Review of Systems: Fever
Vital Signs / Physical Exam
Vital Signs
Vital Signs
Temp Pulse Resp BP Pulse Ox
101.0 F H 73 8 111/38 95
03/05/24 09:07 03/05/24 07:27 03/05/24 07:27 03/05/24 07:27 03/05/24 07:27
Physical Exam
Constitutional: Comfortable, Chronically Ill and Non-toxic
Eyes: No Conjunctival Hemorrhage
Cardiovascular: S1/S2; Negative S3/S4
Pulmonary: Non Labored; Negative Wheezes
Gastrointestinal: Soft, Non Distended, Normal Bowel Sounds and No Rebound
Wound: Other (Wound dressed.)
Neurological: Awake and Alert
Psychological: Calm
Objective Data
Lab Data
Lab Results
03/05/24 05:47
03/05/24 05:47
PT 18.8 Sec (11.4-14.6) H 02/18/24 12:58
INR 1.59 02/18/24 12:58
APTT 35.1 Sec (23.4-35.0) H 02/18/24 12:58
Estimated Creat Clear 14 ml/min 03/05/24 05:47
Lactic Acid Cancelled 02/18/24 14:15
Total Bilirubin 0.3 mg/dl (0.2-1.3) 03/05/24 05:47
AST 23 U/L (14-36) 03/05/24 05:47
ALT 16 U/L (0-35) 03/05/24 05:47
Alkaline Phosphatase 205 U/L (38-126) H 03/05/24 05:47
Most recent labs reviewed.
Micro Results:
02/19/24 16:36 Blood Culture - Final
Blood/Venous No Growth - Final Report
02/19/24 14:41 Wound Culture - Final
Sacral Escherichia coli
Proteus mirabilis
Morganella morganii
Enterococcus faecalis
Gram Stain - Final
02/19/24 14:41 Anaerobic Culture - Final
Sacral
02/21/24 21:48 C. difficile GDH Antigen & Toxins - Final
Feces/Stool Negative for toxigenic C.difficile
02/18/24 17:19 Wound Culture - Final
Sacral Gram Stain - Final
02/18/24 17:19 Wound Culture - Final
Decubitis Ulcer Gram Stain - Final
Imaging:
02/20/2024 CT chest/abdomen/pelvis: No evidence of pneumonia. No acute inflammatory process within the abdomen. Findings suspicious for proctitis, but without acute diverticulitis. No CT evidence to suggest discitis or osteomyelitis.
Care Review
Plan reviewed with: Nurse
[2024-03-05] MEDS: APRESOLINE TUBE (10:49)
[2024-03-05] MEDS: DAKIN'S SOLUTION 0.125% 1/4 STRENGTH TOPICAL ×2 (10:50→20:45)
[2024-03-05] MEDS: COZAAR TUBE (10:50)
[2024-03-05] MEDS: NORVASC TUBE (10:51)
[2024-03-05] MEDS: NSS (PRESERVATIVE FREE) 10 ML IV ×2 (10:55→20:49)
[2024-03-05] MEDS: PROTONIX IV 40 MG IV ×2 (10:55→20:48)
--- NOTE | 2024-03-05 12:08 | PTCARENOTE ---
HD completed at this time, will call report to 4W. Tube study still pending.
[2024-03-05 12:09] LABS: Glucose - Point of Care 94 mg/dl (70-99)
[2024-03-05 13:29] LABS: Glucose - Point of Care 124 mg/dl (70-99)
--- NOTE | 2024-03-05 15:06 | CM ---
Addendum entered by Delaney العلي RN 03/05/24 16:15:
Nika Casper spoke with [facility]; they are now willing to accept the patient back and will find an alternate HD chair for the patient.
Plan update family about SNF return with HD arrangements once HD is in place.
Plan return to [facility] when medically ready and dialysis arrangement made by SNF.
Addendum entered by Delaney العلي RN 03/05/24 15:56:
wound care orders: wound care to sacrum daily, left post thigh Q3days, left heel Q other day. PICC line.
Original Note:
Patient from [facility] with Hx ESRD on HD, dementia, sacral decub, PEG feeds with Dx Anemia likely UGI bleed, sepsis, Large stage IV sacral wound s/p debridement, Proctitis. Room air. PEG tube displaced/replaced s/p tube check today. Febrile
today- blood cultures pending.
Spoke with Nayeli Rocha [facility]; the patient was there for short term rehab and the SNF was attempting to transition the patient to LTC however the patient's did not cooperate with an MA application requisite for LTC, nor do a bed
hold. The did not agree to pay for a bed hold, and they gave away the bed and the HD chair as well. There is currently no HD chair available at [facility].
Spoke with patient's Art dsouza; first conversation he appeared to not understand CM informing him that patient could not return to [facility] as no dialysis bed is available for her now. He states he resides in [facility] and agrees to
SNF referrals near [place] or in the [facility].
Spoke with patient's daughter Marcela, provided update that SNF says that her mother cannot return there as bed was not held and dialysis chair is not available. Marcela says she is POA however her stepfather Art will not let her know anything re;
their finances for LTC for her mother. She says that her father has resisted cooperating anytime finances are needed to be discussed.
SNF referrals placed [facility].
Case discussed with Nika Casper CM Director.
Plan follow up SNF referrals.
--- NOTE | 2024-03-05 15:28 | WOUNDNOTE ---
WON RN NOTE: Followed up today regarding heels. Dressing changed dressing on L heel. Soft shallow appearing blood blister remains intact. Adaptic, abd pad and chi applied. R medial heel appears unchanged from prior picture, foam dressing
maintained. TruVue lite offloading heel boots applied, heels completely offloaded. Will follow up for sacral wound on 03/06.
--- NOTE | 2024-03-05 15:37 | W.PN.UPDATE ---
Update Note
Progress Note Update
tube check with satisfactory postion of peg tube . Ok to use. will sign off call with questions.
--- NOTE | 2024-03-05 15:49 | W.PN.HOSP.TC ---
Today's Communication/Plan
-
repeat blood cultures, monitor fever curve
peg placement ok - resume tube feedings
monitor hgb
HD today
Assessment / Plan
Assessment / Plan
Physical Exam
General: No Apparent Distress, appears comfortable
HEENT: NormoCephalic, Moist mucous membranes and Atraumatic
Respiratory: Clear
Cardiac: S1/S2 and Regular Rhythm; no Murmur
GI: Soft, Non Tender, Non Distended and Normal Bowel Sounds; No Organomegaly
Musculoskeletal: No Clubbing, No Cyanosis and No Edema
Skin: Rash and Decubitus Ulcers (sacral)
Neuro: Nonverbal some communication via head gestures very limited.
# Acute on chronic anemia likely from upper GI bleed on anticoagulants v CKD
-Resumed Eliquis appears to be tolerating well.
-Hemoglobin 5.8 upon admission, transfused. transfused again 1 unit 02/22 - responded well
-EPO as per Renal
-cont to monitor cbc
-maintain hgb >7
- EGD: Esophagitis, no bleeding, clean based ulcer
-Use Protonix (pantoprazole) 40 mg PO BID for 8 weeks followed by once daily.
-GI consulted -signed off; if continuing to have drop in hemoglobin, will need to reengage GI
-Colonoscopy 12/27/2023: No source of bleeding multiple polypectomies proximal ascending colon, sigmoid colon removed with snare, internal hemorrhoids all benign neoplasm
-restarted ASA 02/20 and stable
-Restarted Eliquis 02/23 - so far H&H remains stable
#Sepsis
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
#Proctitis
-sharp excisional debridement performed with cautery and scissors 02/18
-wound cultures growing E-Coli, Proteus Mirabilis, Morganella moranii, enterococcus faecalis
-completed 13 days iv Zosyn as per ID monitor off abx; wbc up was up
�Blood cultures today with spiking temperature of 101 on 03/05�follow cultures off antibiotics; closely monitor fever curve and initiate antibiotics if becomes hemodynamically stable or persistent temperature
-wound care consulted
-ID consult appreciated
-Cdiff neg, blood culture neg
-no underlying abscess on CT imaging although possible proctitis
#Systolic Murmur possibly d/t Anemia since resolved
#Murmur possibly artifact, patient grinding teeth during auscultation
-Echo with no gross valvular abnormality, mild TR, mild concentric LVH, EF 65 to 70%
#PEG displacement
� GI consulted, replaced PEG tube, okay to use
#Hyponatremia
-cont hd
#Hypokalemia
-monitor and replete
#Transaminitis
-most likely 2/2 to sepsis
-RUQ sono unremarkable
-Hep soler neg
-Hold statin
# nodular parenchymal scarring suspected in the superior segment of the right lower lobe.
-Outpt follow-up CT in 1 year recommended
# History of CVA 2020
#bedbound for last 2 years per daughter
#Possible acute metabolic encephalopathy 2/2 infection as above, currently nonverbal, per daughter patient able to speak few words a few weeks ago
#Suspect underlying vascular dementia
-cont asa
-CT head appreciated no acute abn's, findings suggest possible NPH and severe small vessel ischemic disease.
-Difficult to correlate findings of possible NPH given patient has been bed bound for years, is anuric ESRD
-has had progressive cognitive decline since initial hospitalization November 2023 this year though this could be due to progressive vascular dementia as opposed to NPH
-outpt follow up with Neurology recommended
# Paroxysmal A-fib
-HR controlled
-restarted Eliquis - monitor hgb stable so far
# end-stage renal disease on dialysis
# Hyponatremia/hypokalemia/metabolic acidosis
-nephrology consult appreciated
# Type 2 diabetes
-sliding scale continued
-scheduled novolog 5U Q6H
-titrate insulin regimen as necessary.
#Dysphagia status post PEG tube
-All meds via PEG tube
-TF briefly held due to concerns GI bleed since resumed
-nutrition consult
HTN�benign multidrug-resistant
-Continue Norvasc 10 mg, clonidine transdermal patch, hydralazine 50 mg every 8h, losartan 100 mg
-CTM
#Hx CVA with immobility, dysphagia
#Seizure disorder
- hx EEG 01/04/24 no seizures
-Continue Vimpat 100 mg twice daily
-EEG repeating given AMS habitually grinding teeth
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
Keep head of bed raised to 30 degrees at all times
-May suction secretions
Hypophosphatemia
Hypokalemia
monitor and replete as necessary
#CAD prior NSTEMI,
#DVT prophylaxis
SCDs
#CODE STATUS:
-Full code
Art no longer involved in patient's care, stopped his involvement months ago as per daughter Marcela CHOPRA
Total time spent on today's encounter was 55 minutes which included time spent in counseling the patient/family regarding diagnosis and treatment plan as listed above, goals of care, and symptom management. Case was discussed with nursing staff,
specialists, and care coordinators/case management. All labs and imaging personally reviewed by me. Remainder the time spent in detailed review of previous records, lab data, imaging, and other medical provider documentation.
Anticipated Discharge: > 48 hours
Subjective/Interval History
-
Date of Service: March 05, 2024
Dislodged PEG, spiked temperature this morning
Objective Data
-
Labs:
Laboratory Results
03/05/24
05:47
WBC 15.6 H
Hgb 7.8 L
Hct 24.6 L
Plt Count 500 H
Sodium 135
Potassium 4.7
Chloride 97 L
Carbon Dioxide 26
BUN 58 H
Creatinine 3.2 H
Glucose 194 H
Calcium 9.5
Total Bilirubin 0.3
AST 23
ALT 16
Alkaline Phosphatase 205 H
Vital Signs:
Vital Signs
Temp Pulse Resp BP Pulse Ox
98.6 F 76 14 131/56 100
03/05/24 15:15 03/05/24 15:15 03/05/24 15:15 03/05/24 15:15 03/05/24 15:15
I&O
03/04/24 03/05/24 03/06/24
06:59 06:59 06:59
Intake Total 1130 / 1130 640 / 640
Output Total 100 / 100
Balance 1030 / 1030 640 / 640
Review of Systems
-
History Source: Patient
All other systems: Not reviewed unless documented
Physical Exam
-
General: Well Developed, Well Nourished, No Apparent Distress and Comfortable
Respiratory: Decreased Breath Sounds
Cardiac: Regular Rhythm, S1/S2 and Murmur
GI: Soft, Nondistended and Peg Tube
Skin: Warm and Dry
Neuro: Awake, Alert and Other (gives simple one word answers)
Psych: Calm and Apparent Dementia; Negative Intact Judgement/Insight
Data Reviewed
-
Diagnostic Radiology: Report Reviewed by me
CT Scan: Image personally visualized and interpreted and Report Reviewed by me
Ultrasound: Report Reviewed by me
Labs: Labs Reviewed by me
[2024-03-05] MEDS: APRESOLINE 100 MG TUBE (16:24)
--- NOTE | 2024-03-05 16:39 | CM ---
Call received from Josefina from [facility] , they found a chair time with [facility] in [place] and they will transport them to and from dialysis, She said they have a bed for him at [facility] and he can return there whenever he is stable. They
would just need the updated HD information. Josefina will touch base with CM in AM.
[2024-03-05 16:44] LABS: Glucose - Point of Care 175 mg/dl (70-99)
[2024-03-05] MEDS: NOVOLOG FLEXPEN-HIGH RESISTANCE 2 UNITS SC (16:51)
--- NOTE | 2024-03-05 17:01 | PTCARENOTE ---
Received patient to [facility] at 1430, awake , nonverbal. Sent to xray to confirm peg tube placement. Tube confirmed for placement, running at [employer] Carb steady at 55 cc/hr without difficulty. Hob elevated. Appears comfortable in no distress.
[2024-03-05] MEDS: FERROUS SULFATE ORAL LIQUID TUBE (17:35)
[2024-03-05] MEDS: ASPIR LOW (ENTERIC COATED) PO (17:35)
[2024-03-05] MEDS: VIMPAT TUBE (17:35)
[2024-03-05] MEDS: ELIQUIS TUBE (17:35)
[2024-03-05] MEDS: NOVOLOG FLEXPEN-HIGH RESISTANCE SC (17:36)
[2024-03-05] MEDS: NOVOLOG FLEXPEN SC (17:36)
[2024-03-05] MEDS: ELIQUIS 5 MG TUBE (20:46)
[2024-03-05] MEDS: VIMPAT 100 MG TUBE (20:54)
[2024-03-05 23:15] LABS: Glucose - Point of Care 192 mg/dl (70-99)
[2024-03-06] VITALS (8 sets, daily range): BP systolic 103–136; BP diastolic 32–51
[2024-03-06] MEDS: APRESOLINE 100 MG TUBE ×3 (00:45→23:10)
[2024-03-06] MEDS: NOVOLOG FLEXPEN 5 UNITS SC ×5 (00:45→23:12)
[2024-03-06] MEDS: NOVOLOG FLEXPEN-HIGH RESISTANCE 2 UNITS SC ×3 (00:47→12:35)
[2024-03-06 04:08] LABS: Hematocrit 22.7 % (37.0-47.0); Hemoglobin 7.3 g/dL (12.0-16.0); Mean Corp Hgb Conc. 32.2 g/dL (33.0-37.0); Mean Corpuscular Hgb 28.9 pg (27.0-31.0); Mean Corpuscular Volume 89.7 fL (81.0-99.0); Mean Platelet Volume 9.2 fL (7.4-10.4); Platelet Count 429 10^3/uL (130-400); Red Blood Cell Count 2.53 10^6/uL (4.20-5.40); Red Cell Dist. Width 18.6 % (11.5-14.5); White Blood Cell Count 12.5 10^3/uL (4.8-10.8)
[2024-03-06 04:36] LABS: ALT (SGPT) 15 U/L (0-35); AST (SGOT) 24 U/L (14-36); Albumin 3.1 g/dl (3.5-5.0); Alkaline Phosphatase 143 U/L (38-126); Blood Urea Nitrogen 31 mg/dl (7-17); Calcium 9.2 mg/dl (8.4-10.2); Carbon Dioxide 29 mmol/L (22-30); Chloride 96 mmol/L (98-107); Estimated Creatinine Clearance 23 ml/min; Glucose 167 mg/dl (70-99); Potassium 3.9 mmol/L (3.5-5.1); Sodium 135 mmol/L (135-145); Total Bilirubin 0.3 mg/dl (0.2-1.3); Total Protein 5.9 g/dl (6.3-8.2); eGFR 25.73
[2024-03-06 05:05] LABS: Glucose - Point of Care 170 mg/dl (70-99)
[2024-03-06] MEDS: NSS (PRESERVATIVE FREE) 10 ML IV ×2 (08:18→20:06)
[2024-03-06] MEDS: PROTONIX IV 40 MG IV ×2 (08:18→20:05)
[2024-03-06] MEDS: ELIQUIS 5 MG TUBE ×2 (08:20→20:05)
[2024-03-06] MEDS: NORVASC 10 MG TUBE (08:20)
[2024-03-06] MEDS: COZAAR 100 MG TUBE (08:20)
[2024-03-06] MEDS: FERROUS SULFATE ORAL LIQUID 300 MG TUBE (08:20)
[2024-03-06] MEDS: ASPIR LOW (ENTERIC COATED) 81 MG PO (08:20)
[2024-03-06] MEDS: VIMPAT 100 MG TUBE ×2 (08:20→20:06)
[2024-03-06] MEDS: DAKIN'S SOLUTION 0.125% 1/4 STRENGTH 1 ML TOPICAL ×2 (08:26→20:03)
[2024-03-06] MEDS: CATAPRES-TTS-1 0.1 MG TRANSDERM (09:37)
--- NOTE | 2024-03-06 11:14 | W.PN.ID1 ---
Date of Service
Date of Service: March 06, 2024
Today's Communication
Continue to monitor off antibiotics. Follow pending cultures
Assessment / Plan
Large/extensive sacral decubiti
- S/p debridement
- s/p course of abx.
Leukocytosis
-Overall improved, but remains elevated. Stable today
Intermittent fevers
Transaminitis
-Resolved
A-fib
NIDDM
ESRD�HD
Seizure disorder
Dementia
Dysphagia s/p PEG
Anemia
GERD
Hx CVA
Chronic diastolic CHF
HTN
Recommendations:
S/p course of Zosyn. Off antibiotics x 5 days.
Fever noted again this a.m. Blood cultures no growth to date.
Multiple potential sources of fever, including aspiration pneumonia, HD line, large decubiti, others.
Would continue to monitor white count and temperature curve.
Continue with local care to the sacral decubiti, including Dakin's solution to decrease overall superficial bioburden.
offloading of the wound as feasible - turn q2 hours
Size of wound, nutrition level, and underlying comorbidities of diabetes mellitus and end-stage renal disease all will negatively impact the patient's ability to heal.
Medium / care home prognosis is poor to nil. Would expect recurrent hospitalizations and infections. Patient appears to be at least 'palliative care' appropriate.
����������������������������������������������������������
Chief Complaint
-: Fever, Leukocytosis and Other (Sacral decubiti)
Subjective / Review of Systems
Patient seen and examined. Temperature noted this a.m.
Vital Signs / Physical Exam
Vital Signs
Vital Signs
Temp Pulse Resp BP Pulse Ox
100.8 F H 78 18 135/44 98
03/06/24 07:00 03/06/24 07:00 03/06/24 07:00 03/06/24 07:00 03/06/24 07:00
Physical Exam
Constitutional: No Acute Distress, Comfortable, Chronically Ill and Non-toxic
Eyes: No Conjunctival Hemorrhage
Cardiovascular: Regular Rate and S1/S2; Negative S3/S4
Pulmonary: Non Labored; Negative Wheezes
Gastrointestinal: Soft, Non Distended, Normal Bowel Sounds and No Rebound
Extremities: Edema; Negative Cyanosis or Erythema
Wound: Other (Large sacral wound currently packed. No malodor. )
Neurological: Awake
Psychological: Calm
Objective Data
Lab Data
Lab Results
03/06/24 03:52
03/06/24 03:52
PT 18.8 Sec (11.4-14.6) H 02/18/24 12:58
INR 1.59 02/18/24 12:58
APTT 35.1 Sec (23.4-35.0) H 02/18/24 12:58
Estimated Creat Clear 23 ml/min 03/06/24 03:52
Lactic Acid Cancelled 02/18/24 14:15
Total Bilirubin 0.3 mg/dl (0.2-1.3) 03/06/24 03:52
AST 24 U/L (14-36) 03/06/24 03:52
ALT 15 U/L (0-35) 03/06/24 03:52
Alkaline Phosphatase 143 U/L (38-126) H 03/06/24 03:52
Most recent labs reviewed.
Micro Results:
03/05/24 12:13 Blood Culture - Pending
Blood/Venous
02/19/24 16:36 Blood Culture - Final
Blood/Venous No Growth - Final Report
02/19/24 14:41 Wound Culture - Final
Sacral Escherichia coli
Proteus mirabilis
Morganella morganii
Enterococcus faecalis
Gram Stain - Final
02/19/24 14:41 Anaerobic Culture - Final
Sacral
02/21/24 21:48 C. difficile GDH Antigen & Toxins - Final
Feces/Stool Negative for toxigenic C.difficile
02/18/24 17:19 Wound Culture - Final
Sacral Gram Stain - Final
02/18/24 17:19 Wound Culture - Final
Decubitis Ulcer Gram Stain - Final
Imaging:
02/20/2024 CT chest/abdomen/pelvis: No evidence of pneumonia. No acute inflammatory process within the abdomen. Findings suspicious for proctitis, but without acute diverticulitis. No CT evidence to suggest discitis or osteomyelitis.
--- NOTE | 2024-03-06 11:41 | W.PN.NEPH.PH ---
Today's Communication / Plan
-
HD tomorrow
Assessment/Plan
-
Assessment:
ESRD on HD tunneled dialysis catheter, [facility]
Acute on chronic anemia likely from upper GI bleed on anticoagulants
Infected sacral decub wound
leucocytosis
Paroxysmal A-fib
Type 2 diabetes with hyperglycemia
Elevated transaminase
Dysphagia status post PEG tube
HTN�benign multidrug-
Hx CVA with immobility, dysphagia
Seizure disorder
Dementia�severe
CAD prior NSTEMI
Hyponatremia
Plan:
follow Hgb
transfuse as needed
completed abx for decub
HD tomorrow
-
-
Date of Service: March 06, 2024
CC / HPI / ROS
-
Chief Complaint:
ESRD
History of Present Illness:
hgb down to 7.3
WBC stable 12.5
completed abx
BP stable
Review of Systems:
non verbal, on RA
no fever
Labs
-
Labs:
WBC 12.5 10^3/uL (4.8-10.8) H 03/06/24 03:52
RBC 2.53 10^6/uL (4.20-5.40) L 03/06/24 03:52
Hgb 7.3 g/dL (12.0-16.0) L 03/06/24 03:52
Hct 22.7 % (37.0-47.0) L 03/06/24 03:52
Plt Count 429 10^3/uL (130-400) H 03/06/24 03:52
Sodium 135 mmol/L (135-145) 03/06/24 03:52
Potassium 3.9 mmol/L (3.5-5.1) 03/06/24 03:52
Chloride 96 mmol/L (98-107) L 03/06/24 03:52
Carbon Dioxide 29 mmol/L (22-30) 03/06/24 03:52
BUN 31 mg/dl (7-17) H 03/06/24 03:52
Creatinine 2.0 mg/dL (0.6-1.0) H 03/06/24 03:52
eGFR 25.73 03/06/24 03:52
Glucose 167 mg/dl (70-99) H 03/06/24 03:52
Calcium 9.2 mg/dl (8.4-10.2) 03/06/24 03:52
Phosphorus 3.3 mg/dl (2.5-4.5) 03/03/24 05:59
Albumin 3.1 g/dl (3.5-5.0) L 03/06/24 03:52
Physical Exam
-
Vital Signs:
Vital Signs
Temp Pulse Resp BP Pulse Ox
100.8 F H 78 18 135/44 98
03/06/24 07:00 03/06/24 07:00 03/06/24 07:00 03/06/24 07:00 03/06/24 07:00
Cardiovascular:: Regular rate and rhythm
Respiratory:: Bilateral: Coarse
Lung Excursion:: Normal
Abdomen:: Nontender and Soft
Bowel Sounds:: Normal
Extremity Edema:: None: Bilateral:
--- NOTE | 2024-03-06 11:45 | WOUNDNOTE ---
WO RN NOTE: Patient visited to follow up on sacral wound. 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 Sacral wound appears stable from prior pictures. Moderate amount of drainage noted, no odor. Wound care completed as ordered and patient tolerated well.
Patient now back on PEG tube feeds. Heels off-loaded in fiber filled boots. Air added to static air overlay and patient positioned on left semi-side lying position. RN Lacy given update. Will follow as needed.
[2024-03-06 12:00] LABS: Glucose - Point of Care 152 mg/dl (70-99)
--- NOTE | 2024-03-06 14:35 | CM ---
Chart reviewed: ID will Continue to monitor off antibiotics. Follow pending cultures.
Per Nephrology, patient will go to HD tomorrow.
Discharge Anticipated > 48 hours
Plan: Return to [facility] when medically stable
--- NOTE | 2024-03-06 15:41 | W.PN.HOSP.TC ---
Today's Communication/Plan
-
hd tomorrow
f/u cultures, fever curve
Assessment / Plan
Assessment / Plan
Physical Exam
General: No Apparent Distress, appears comfortable
HEENT: NormoCephalic, Moist mucous membranes and Atraumatic
Respiratory: Clear
Cardiac: S1/S2 and Regular Rhythm; no Murmur
GI: Soft, Non Tender, Non Distended and Normal Bowel Sounds; No Organomegaly
Musculoskeletal: No Clubbing, No Cyanosis and No Edema
Skin: Rash and Decubitus Ulcers (sacral)
Neuro: Nonverbal some communication via head gestures very limited.
# Acute on chronic anemia likely from upper GI bleed on anticoagulants v CKD
-Resumed Eliquis appears to be tolerating well.
-Hemoglobin 5.8 upon admission, transfused. transfused again 1 unit 02/22 - responded well
-EPO as per Renal
-cont to monitor cbc
-maintain hgb >7
- EGD: Esophagitis, no bleeding, clean based ulcer
-Use Protonix (pantoprazole) 40 mg PO BID for 8 weeks followed by once daily.
-GI consulted -signed off; if continuing to have drop in hemoglobin, will need to reengage GI
-Colonoscopy 12/27/2023: No source of bleeding multiple polypectomies proximal ascending colon, sigmoid colon removed with snare, internal hemorrhoids all benign neoplasm
-restarted ASA 02/20 and stable
-Restarted Eliquis 02/23 - so far H&H remains stable
#Sepsis
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
#Proctitis
-sharp excisional debridement performed with cautery and scissors 02/18
-wound cultures growing E-Coli, Proteus Mirabilis, Morganella moranii, enterococcus faecalis
-completed 13 days iv Zosyn as per ID monitor off abx; wbc up was up
�Blood cultures temperature of 101 on 03/05�follow cultures off antibiotics; closely monitor fever curve and initiate antibiotics if becomes hemodynamically stable or persistent temperature
-wound care consulted
-ID consult appreciated
-Cdiff neg, blood culture neg
-no underlying abscess on CT imaging although possible proctitis
#Systolic Murmur possibly d/t Anemia since resolved
#Murmur possibly artifact, patient grinding teeth during auscultation
-Echo with no gross valvular abnormality, mild TR, mild concentric LVH, EF 65 to 70%
#PEG displacement
� GI consulted, replaced PEG tube, okay to use
#Hyponatremia
-cont hd
#Hypokalemia
-monitor and replete
#Transaminitis
-most likely 2/2 to sepsis
-RUQ sono unremarkable
-Hep soler neg
-Hold statin
# nodular parenchymal scarring suspected in the superior segment of the right lower lobe.
-Outpt follow-up CT in 1 year recommended
# History of CVA 2020
#bedbound for last 2 years per daughter
#Possible acute metabolic encephalopathy 2/2 infection as above, currently nonverbal, per daughter patient able to speak few words a few weeks ago
#Suspect underlying vascular dementia
-cont asa
-CT head appreciated no acute abn's, findings suggest possible NPH and severe small vessel ischemic disease.
-Difficult to correlate findings of possible NPH given patient has been bed bound for years, is anuric ESRD
-has had progressive cognitive decline since initial hospitalization November 2023 this year though this could be due to progressive vascular dementia as opposed to NPH
-outpt follow up with Neurology recommended
# Paroxysmal A-fib
-HR controlled
-restarted Eliquis - monitor hgb stable so far
# end-stage renal disease on dialysis
# Hyponatremia/hypokalemia/metabolic acidosis
-nephrology consult appreciated
# Type 2 diabetes
-sliding scale continued
-scheduled novolog 5U Q6H
-titrate insulin regimen as necessary.
#Dysphagia status post PEG tube
-All meds via PEG tube
-TF briefly held due to concerns GI bleed since resumed
-nutrition consult
HTN�benign multidrug-resistant
-Continue Norvasc 10 mg, clonidine transdermal patch, hydralazine 50 mg every 8h, losartan 100 mg
-CTM
#Hx CVA with immobility, dysphagia
#Seizure disorder
- hx EEG 01/04/24 no seizures
-Continue Vimpat 100 mg twice daily
-EEG repeating given AMS habitually grinding teeth
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
Keep head of bed raised to 30 degrees at all times
-May suction secretions
Hypophosphatemia
Hypokalemia
monitor and replete as necessary
#CAD prior NSTEMI,
#DVT prophylaxis
SCDs
#CODE STATUS:
-Full code
Art no longer involved in patient's care, stopped his involvement months ago as per daughter Marcela CHOPRA
Total time spent on today's encounter was 51 minutes which included time spent in counseling the patient/family regarding diagnosis and treatment plan as listed above, goals of care, and symptom management. Case was discussed with nursing staff,
specialists, and care coordinators/case management. All labs and imaging personally reviewed by me. Remainder the time spent in detailed review of previous records, lab data, imaging, and other medical provider documentation.
Anticipated Discharge: > 48 hours
Subjective/Interval History
-
Date of Service: March 06, 2024
No acute events
Objective Data
-
Labs:
Laboratory Results
03/06/24
03:52
WBC 12.5 H
Hgb 7.3 L
Hct 22.7 L
Plt Count 429 H
Sodium 135
Potassium 3.9
Chloride 96 L
Carbon Dioxide 29
BUN 31 H
Creatinine 2.0 H
Glucose 167 H
Calcium 9.2
Total Bilirubin 0.3
AST 24
ALT 15
Alkaline Phosphatase 143 H
Vital Signs:
Vital Signs
Temp Pulse Resp BP Pulse Ox
99.2 F 73 18 127/45 97
03/06/24 11:51 03/06/24 11:51 03/06/24 11:51 03/06/24 11:51 03/06/24 11:51
I&O
03/05/24 03/06/24 03/07/24
06:59 06:59 06:59
Intake Total 640 / 640 150 / 150
Output Total 0 / 0
Balance 640 / 640 150 / 150
Review of Systems
-
History Source: Patient
All other systems: Not reviewed unless documented
Data Reviewed
-
Diagnostic Radiology: Report Reviewed by me
CT Scan: Image personally visualized and interpreted and Report Reviewed by me
Ultrasound: Report Reviewed by me
Labs: Labs Reviewed by me
[2024-03-06] MEDS: APRESOLINE TUBE (16:18)
[2024-03-06 17:15] LABS: Glucose - Point of Care 142 mg/dl (70-99)
[2024-03-06] MEDS: NOVOLOG FLEXPEN-HIGH RESISTANCE 1 UNITS SC (17:21)
[2024-03-06 18:06] LABS: Glucose - Point of Care 153 mg/dl (70-99)
[2024-03-06 22:59] LABS: Glucose - Point of Care 222 mg/dl (70-99)
[2024-03-06] MEDS: NOVOLOG FLEXPEN-HIGH RESISTANCE 4 UNITS SC (23:13)
[2024-03-07 03:10] VITALS: BP 141/51
[2024-03-07 05:23] LABS: Glucose - Point of Care 164 mg/dl (70-99)
[2024-03-07] MEDS: NOVOLOG FLEXPEN 5 UNITS SC ×3 (05:23→17:59)
[2024-03-07] MEDS: NOVOLOG FLEXPEN-HIGH RESISTANCE 2 UNITS SC ×2 (05:24→11:39)
[2024-03-07 06:32] VITALS: BMI 24.8
[2024-03-07 08:04] LABS: Hematocrit 22.8 % (37.0-47.0); Hemoglobin 7.2 g/dL (12.0-16.0); Mean Corp Hgb Conc. 31.6 g/dL (33.0-37.0); Mean Corpuscular Volume 91.9 fL (81.0-99.0); Mean Platelet Volume 9.3 fL (7.4-10.4); Platelet Count 448 10^3/uL (130-400); Red Blood Cell Count 2.48 10^6/uL (4.20-5.40); Red Cell Dist. Width 18.2 % (11.5-14.5); White Blood Cell Count 11.1 10^3/uL (4.8-10.8)
[2024-03-07 08:11] VITALS: BP 125/46
[2024-03-07 08:45] LABS: ALT (SGPT) 16 U/L (0-35); AST (SGOT) 34 U/L (14-36); Albumin 3.1 g/dl (3.5-5.0); Alkaline Phosphatase 149 U/L (38-126); Blood Urea Nitrogen 57 mg/dl (7-17); Calcium 9.1 mg/dl (8.4-10.2); Carbon Dioxide 32 mmol/L (22-30); Chloride 95 mmol/L (98-107); Estimated Creatinine Clearance 14 ml/min; Glucose 149 mg/dl (70-99); Potassium 3.6 mmol/L (3.5-5.1); Sodium 136 mmol/L (135-145); Total Bilirubin 0.3 mg/dl (0.2-1.3); Total Protein 6.3 g/dl (6.3-8.2); eGFR 14.11
[2024-03-07] MEDS: MANNITOL 25% 12.5 GRAMS IV ×2 (09:15→10:33)
[2024-03-07] MEDS: RETACRIT 10000 UNITS IV (09:37)
[2024-03-07] MEDS: FLEXBUMIN 25% FOR HEMODIALYSIS 12.5 GRAMS IV ×2 (09:38→10:30)
[2024-03-07] MEDS: ELIQUIS 5 MG TUBE ×2 (10:28→21:16)
[2024-03-07] MEDS: VIMPAT 100 MG TUBE ×2 (10:30→21:16)
[2024-03-07] MEDS: FERROUS SULFATE ORAL LIQUID 300 MG TUBE (10:31)
[2024-03-07] MEDS: PROTONIX IV 40 MG IV ×2 (10:32→21:16)
[2024-03-07] MEDS: NSS (PRESERVATIVE FREE) 10 ML IV ×2 (10:32→21:17)
--- NOTE | 2024-03-07 10:42 | W.PN.NEPH.HD ---
Assessment
-
Patient seen on dialysis
Systolic blood pressure at 116 at current UF
2 albumin into mannitol provided
Anemia persists (iron stores repleted)
Progress Note - Hemodialysis
-
Date of Service: March 07, 2024
Duration: 30 minutes and 3 hours
Potassium Bath: 3
Calcium Bath: 2.5
Opti-Dialyzer: 160
Ultrafiltration: Other (1.5kg)
Blood Flow: 400
Dialysate Flow: 600
Heparin: hold
EPO: 29879
[2024-03-07 10:48] LABS: Haptoglobin 323 mg/dL (30-200)
[2024-03-07 11:34] LABS: Glucose - Point of Care 159 mg/dl (70-99)
[2024-03-07] MEDS: COZAAR 100 MG TUBE (11:35)
[2024-03-07] MEDS: APRESOLINE 100 MG TUBE ×2 (11:35→15:57)
[2024-03-07] MEDS: NORVASC 10 MG TUBE (11:36)
[2024-03-07 11:46] VITALS: BP 147/52
[2024-03-07] MEDS: ASPIR LOW (ENTERIC COATED) PO (11:49)
--- NOTE | 2024-03-07 13:15 | W.PN.ID1 ---
Date of Service
Date of Service: March 07, 2024
Today's Communication
Observe off abx.
Assessment / Plan
Large/extensive sacral decubiti
- S/p debridement
- s/p course of abx.
Leukocytosis
-Overall improved, but remains elevated. Improved today
Intermittent fevers
- afebrile x 24 h
Transaminitis
-Resolved
A-fib
NIDDM
ESRD�HD
Seizure disorder
Dementia
Dysphagia s/p PEG
Anemia
GERD
Hx CVA
Chronic diastolic CHF
HTN
Recommendations:
S/p course of Zosyn. Off antibiotics x 5 days.
Blood cultures no growth to date.
Afebrile past 24 hours.
Would continue to monitor white count and temperature curve.
Continue with local care to the sacral decubiti, including Dakin's solution to decrease overall superficial bioburden.
offloading of the wound as feasible - turn q2 hours
Size of wound, nutrition level, and underlying comorbidities of diabetes mellitus and end-stage renal disease all will negatively impact the patient's ability to heal.
Given multiple significant comorbidities, oil heaterman prognosis is poor to nil for any recovery to a reasonable quality of life.
Would expect recurrent hospitalizations and infections. Patient is 'palliative care' appropriate.
����������������������������������������������������������
Chief Complaint
-: Fever, Leukocytosis and Other (Sacral decubiti)
Subjective / Review of Systems
Seen / examined. No significant clinical changes overnight.
No fevers recorded.
Vital Signs / Physical Exam
Vital Signs
Vital Signs
Temp Pulse Resp BP Pulse Ox
97.7 F 76 18 147/52 99
03/07/24 11:46 03/07/24 11:46 03/07/24 11:46 03/07/24 11:46 03/07/24 03:10
Physical Exam
Constitutional: No Acute Distress, Comfortable, Chronically Ill and Non-toxic
Eyes: No Conjunctival Hemorrhage
Cardiovascular: Regular Rate and S1/S2; Negative S3/S4
Pulmonary: Non Labored; Negative Wheezes
Gastrointestinal: Soft, Non Distended, Normal Bowel Sounds and No Rebound
Extremities: Edema; Negative Cyanosis or Erythema
Wound: Other (Large sacral wound currently packed. No malodor. )
Neurological: Awake
Psychological: Calm
Objective Data
Lab Data
Lab Results
03/07/24 07:33
03/07/24 07:33
PT 18.8 Sec (11.4-14.6) H 02/18/24 12:58
INR 1.59 02/18/24 12:58
APTT 35.1 Sec (23.4-35.0) H 02/18/24 12:58
Estimated Creat Clear 14 ml/min 03/07/24 07:33
Lactic Acid Cancelled 02/18/24 14:15
Total Bilirubin 0.3 mg/dl (0.2-1.3) 03/07/24 07:33
AST 34 U/L (14-36) 03/07/24 07:33
ALT 16 U/L (0-35) 03/07/24 07:33
Alkaline Phosphatase 149 U/L (38-126) H 03/07/24 07:33
Most recent labs reviewed.
Micro Results:
03/05/24 12:13 Blood Culture - Preliminary
Blood/Venous No Growth in 48 hours- Final report to follow
02/19/24 16:36 Blood Culture - Final
Blood/Venous No Growth - Final Report
02/19/24 14:41 Wound Culture - Final
Sacral Escherichia coli
Proteus mirabilis
Morganella morganii
Enterococcus faecalis
Gram Stain - Final
02/19/24 14:41 Anaerobic Culture - Final
Sacral
02/21/24 21:48 C. difficile GDH Antigen & Toxins - Final
Feces/Stool Negative for toxigenic C.difficile
02/18/24 17:19 Wound Culture - Final
Sacral Gram Stain - Final
02/18/24 17:19 Wound Culture - Final
Decubitis Ulcer Gram Stain - Final
Imaging:
02/20/2024 CT chest/abdomen/pelvis: No evidence of pneumonia. No acute inflammatory process within the abdomen. Findings suspicious for proctitis, but without acute diverticulitis. No CT evidence to suggest discitis or osteomyelitis.
--- NOTE | 2024-03-07 15:07 | W.PN.HOSP.TC ---
Today's Communication/Plan
-
monitor off abx
monitor hgb
hd
Assessment / Plan
Assessment / Plan
Physical Exam
General: No Apparent Distress, appears comfortable
HEENT: NormoCephalic, Moist mucous membranes and Atraumatic
Respiratory: Clear
Cardiac: S1/S2 and Regular Rhythm; no Murmur
GI: Soft, Non Tender, Non Distended and Normal Bowel Sounds; No Organomegaly
Musculoskeletal: No Clubbing, No Cyanosis and No Edema
Skin: Rash and Decubitus Ulcers (sacral)
Neuro: Nonverbal some communication via head gestures very limited.
# Acute on chronic anemia likely from upper GI bleed on anticoagulants v CKD
-Resumed Eliquis appears to be tolerating well.
-Hemoglobin 5.8 upon admission, transfused. transfused again 1 unit 02/22 - responded well
-EPO as per Renal
-cont to monitor cbc
-maintain hgb >7
- EGD: Esophagitis, no bleeding, clean based ulcer
-Use Protonix (pantoprazole) 40 mg PO BID for 8 weeks followed by once daily.
-GI consulted -signed off; if continuing to have drop in hemoglobin, will need to reengage GI
-Colonoscopy 12/27/2023: No source of bleeding multiple polypectomies proximal ascending colon, sigmoid colon removed with snare, internal hemorrhoids all benign neoplasm
-restarted ASA 02/20 and stable
-Restarted Eliquis 02/23 - so far H&H remains stable
#Sepsis
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
#Proctitis
-sharp excisional debridement performed with cautery and scissors 02/18
-wound cultures growing E-Coli, Proteus Mirabilis, Morganella moranii, enterococcus faecalis
-completed 13 days iv Zosyn as per ID monitor off abx; wbc up was up
�Blood cultures temperature of 101 on 03/05�follow cultures off antibiotics; closely monitor fever curve and initiate antibiotics if becomes hemodynamically stable or persistent temperature
-wound care consulted
-ID consult appreciated
-Cdiff neg, blood culture neg
-no underlying abscess on CT imaging although possible proctitis
#Systolic Murmur possibly d/t Anemia since resolved
#Murmur possibly artifact, patient grinding teeth during auscultation
-Echo with no gross valvular abnormality, mild TR, mild concentric LVH, EF 65 to 70%
#PEG displacement
� GI consulted, replaced PEG tube, okay to use
#Hyponatremia
-cont hd
#Hypokalemia
-monitor and replete
#Transaminitis
-most likely 2/2 to sepsis
-RUQ sono unremarkable
-Hep soler neg
-Hold statin
# nodular parenchymal scarring suspected in the superior segment of the right lower lobe.
-Outpt follow-up CT in 1 year recommended
# History of CVA 2020
#bedbound for last 2 years per daughter
#Possible acute metabolic encephalopathy 2/2 infection as above, currently nonverbal, per daughter patient able to speak few words a few weeks ago
#Suspect underlying vascular dementia
-cont asa
-CT head appreciated no acute abn's, findings suggest possible NPH and severe small vessel ischemic disease.
-Difficult to correlate findings of possible NPH given patient has been bed bound for years, is anuric ESRD
-has had progressive cognitive decline since initial hospitalization November 2023 this year though this could be due to progressive vascular dementia as opposed to NPH
-outpt follow up with Neurology recommended
# Paroxysmal A-fib
-HR controlled
-restarted Eliquis - monitor hgb stable so far
# end-stage renal disease on dialysis
# Hyponatremia/hypokalemia/metabolic acidosis
-nephrology consult appreciated
# Type 2 diabetes
-sliding scale continued
-scheduled novolog 5U Q6H
-titrate insulin regimen as necessary.
#Dysphagia status post PEG tube
-All meds via PEG tube
-TF briefly held due to concerns GI bleed since resumed
-nutrition consult
HTN�benign multidrug-resistant
-Continue Norvasc 10 mg, clonidine transdermal patch, hydralazine 50 mg every 8h, losartan 100 mg
-CTM
#Hx CVA with immobility, dysphagia
#Seizure disorder
- hx EEG 01/04/24 no seizures
-Continue Vimpat 100 mg twice daily
-EEG repeating given AMS habitually grinding teeth
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
Keep head of bed raised to 30 degrees at all times
-May suction secretions
Hypophosphatemia
Hypokalemia
monitor and replete as necessary
#CAD prior NSTEMI,
#DVT prophylaxis
SCDs
#CODE STATUS:
-Full code
Art no longer involved in patient's care, stopped his involvement months ago as per daughter Marcela CHOPRA
Anticipated Discharge: 24 - 48 hours
Subjective/Interval History
-
Date of Service: March 07, 2024
no acute events, afebrile 24 hours
Objective Data
-
Labs:
Laboratory Results
03/07/24
07:33
WBC 11.1 H
Hgb 7.2 L
Hct 22.8 L
Plt Count 448 H
Sodium 136
Potassium 3.6
Chloride 95 L
Carbon Dioxide 32 H
BUN 57 H
Creatinine 3.3 H
Glucose 149 H
Calcium 9.1
Total Bilirubin 0.3
AST 34
ALT 16
Alkaline Phosphatase 149 H
Vital Signs:
Vital Signs
Temp Pulse Resp BP Pulse Ox
97.7 F 76 18 147/52 99
03/07/24 11:46 03/07/24 11:46 03/07/24 11:46 03/07/24 11:46 03/07/24 03:10
I&O
03/06/24 03/07/24 03/08/24
06:59 06:59 06:59
Intake Total 150 / 150 690 / 690 690 / 690
Output Total 0 / 0
Balance 150 / 150 690 / 690 690 / 690
Review of Systems
-
History Source: Patient
All other systems: Not reviewed unless documented
Data Reviewed
-
Diagnostic Radiology: Report Reviewed by me
CT Scan: Image personally visualized and interpreted and Report Reviewed by me
Ultrasound: Report Reviewed by me
Labs: Labs Reviewed by me
--- NOTE | 2024-03-07 15:20 | CM ---
CM reviewed chart, spoke with Josefina in Admissions at [facility], confirmed can accept patient back for return of SNF with HD. CM will continue to follow for all discharge planning needs.
Plan; return to [facility] with HD when medically stable.
[facility]
Report: [phone]
[2024-03-07] MEDS: DAKIN'S SOLUTION 0.125% 1/4 STRENGTH 100 ML TOPICAL (15:31)
[2024-03-07 15:55] VITALS: BP 143/52
[2024-03-07 17:58] LABS: Glucose - Point of Care 262 mg/dl (70-99)
[2024-03-07] MEDS: NOVOLOG FLEXPEN-HIGH RESISTANCE 7 UNITS SC (17:58)
[2024-03-07] MEDS: DAKIN'S SOLUTION 0.125% 1/4 STRENGTH 473 ML TOPICAL (21:15)
[2024-03-07 23:50] VITALS: BP 126/47
[2024-03-08 00:15] LABS: Glucose - Point of Care 189 mg/dl (70-99)
[2024-03-08] MEDS: APRESOLINE 100 MG TUBE ×3 (00:58→16:52)
[2024-03-08] MEDS: NOVOLOG FLEXPEN 5 UNITS SC ×4 (01:06→18:29)
[2024-03-08] MEDS: NOVOLOG FLEXPEN-HIGH RESISTANCE 2 UNITS SC ×2 (01:07→13:14)
[2024-03-08 05:16] LABS: Hematocrit 25.6 % (37.0-47.0); Hemoglobin 8.1 g/dL (12.0-16.0); Mean Corp Hgb Conc. 31.6 g/dL (33.0-37.0); Mean Corpuscular Hgb 29.7 pg (27.0-31.0); Mean Corpuscular Volume 93.8 fL (81.0-99.0); Mean Platelet Volume 9.5 fL (7.4-10.4); Platelet Count 488 10^3/uL (130-400); Red Blood Cell Count 2.73 10^6/uL (4.20-5.40); Red Cell Dist. Width 18.1 % (11.5-14.5); White Blood Cell Count 12.2 10^3/uL (4.8-10.8)
[2024-03-08 05:39] LABS: ALT (SGPT) 16 U/L (0-35); AST (SGOT) 25 U/L (14-36); Albumin 3.4 g/dl (3.5-5.0); Alkaline Phosphatase 192 U/L (38-126); Blood Urea Nitrogen 38 mg/dl (7-17); Calcium 9.4 mg/dl (8.4-10.2); Carbon Dioxide 30 mmol/L (22-30); Chloride 95 mmol/L (98-107); Estimated Creatinine Clearance 22 ml/min; Glucose 201 mg/dl (70-99); Potassium 4.6 mmol/L (3.5-5.1); Sodium 137 mmol/L (135-145); Total Bilirubin 0.3 mg/dl (0.2-1.3); Total Protein 6.5 g/dl (6.3-8.2); eGFR 24.27
[2024-03-08 06:00] VITALS: BMI 24.7
[2024-03-08] MEDS: NOVOLOG FLEXPEN-HIGH RESISTANCE 4 UNITS SC (06:34)
[2024-03-08 06:36] LABS: Glucose - Point of Care 207 mg/dl (70-99)
[2024-03-08 07:00] VITALS: BP 157/51
[2024-03-08 07:55] VITALS: BP 157/51
[2024-03-08] MEDS: VIMPAT 100 MG TUBE ×2 (09:33→20:33)
[2024-03-08] MEDS: NSS (PRESERVATIVE FREE) 10 ML IV ×2 (09:33→20:33)
[2024-03-08] MEDS: FERROUS SULFATE ORAL LIQUID 300 MG TUBE (09:33)
[2024-03-08] MEDS: LOW STRENGTH ASPIRIN 81 MG TUBE (09:34)
[2024-03-08] MEDS: COZAAR 100 MG TUBE (09:34)
[2024-03-08] MEDS: PROTONIX IV 40 MG IV ×2 (09:34→20:34)
[2024-03-08] MEDS: ELIQUIS 5 MG TUBE ×2 (09:34→20:32)
[2024-03-08] MEDS: NORVASC 10 MG TUBE (09:34)
[2024-03-08] MEDS: DAKIN'S SOLUTION 0.125% 1/4 STRENGTH 473 ML TOPICAL ×2 (09:35→20:30)
[2024-03-08 13:13] LABS: Glucose - Point of Care 176 mg/dl (70-99)
--- NOTE | 2024-03-08 13:24 | W.PN.HOSP.TC ---
Today's Communication/Plan
-
Follow-up ID recommendations
Follow-up fever curve, white count
Assessment / Plan
Assessment / Plan
Physical Exam
General: No Apparent Distress, appears comfortable
HEENT: NormoCephalic, Moist mucous membranes and Atraumatic
Respiratory: Clear
Cardiac: S1/S2 and Regular Rhythm; no Murmur
GI: Soft, Non Tender, Non Distended and Normal Bowel Sounds; No Organomegaly
Musculoskeletal: No Clubbing, No Cyanosis and No Edema
Skin: Rash and Decubitus Ulcers (sacral)
Neuro: Nonverbal some communication via head gestures very limited.
# Acute on chronic anemia likely from upper GI bleed on anticoagulants v CKD
-Resumed Eliquis appears to be tolerating well.
-Hemoglobin 5.8 upon admission, transfused. transfused again 1 unit 02/22 - responded well
-EPO as per Renal
-cont to monitor cbc
-maintain hgb >7
- EGD: Esophagitis, no bleeding, clean based ulcer
-Use Protonix (pantoprazole) 40 mg PO BID for 8 weeks followed by once daily.
-GI consulted -signed off; if continuing to have drop in hemoglobin, will need to reengage GI
-Colonoscopy 12/27/2023: No source of bleeding multiple polypectomies proximal ascending colon, sigmoid colon removed with snare, internal hemorrhoids all benign neoplasm
-restarted ASA 02/20 and stable
-Restarted Eliquis 02/23 - so far H&H remains stable
#Sepsis
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
#Proctitis
-sharp excisional debridement performed with cautery and scissors 02/18
-wound cultures growing E-Coli, Proteus Mirabilis, Morganella moranii, enterococcus faecalis
-completed 13 days iv Zosyn as per ID monitor off abx; wbc up was up
�Blood cultures temperature of 101 on 9/25�cultures negative; closely monitor fever curve and initiate antibiotics if becomes hemodynamically stable or persistent temperature
-wound care consulted
-ID consult appreciated
-Cdiff neg, blood culture neg
-no underlying abscess on CT imaging although possible proctitis
#Systolic Murmur possibly d/t Anemia since resolved
#Murmur possibly artifact, patient grinding teeth during auscultation
-Echo with no gross valvular abnormality, mild TR, mild concentric LVH, EF 65 to 70%
#PEG displacement
� GI consulted, replaced PEG tube, okay to use
#Hyponatremia
-cont hd
#Hypokalemia
-monitor and replete
#Transaminitis
-most likely 2/2 to sepsis
-RUQ sono unremarkable
-Hep soler neg
-Hold statin
# nodular parenchymal scarring suspected in the superior segment of the right lower lobe.
-Outpt follow-up CT in 1 year recommended
# History of CVA 2020
#bedbound for last 2 years per daughter
#Possible acute metabolic encephalopathy 2/2 infection as above, currently nonverbal, per daughter patient able to speak few words a few weeks ago
#Suspect underlying vascular dementia
-cont asa
-CT head appreciated no acute abn's, findings suggest possible NPH and severe small vessel ischemic disease.
-Difficult to correlate findings of possible NPH given patient has been bed bound for years, is anuric ESRD
-has had progressive cognitive decline since initial hospitalization November 2023 this year though this could be due to progressive vascular dementia as opposed to NPH
-outpt follow up with Neurology recommended
# Paroxysmal A-fib
-HR controlled
-restarted Eliquis - monitor hgb stable so far
# end-stage renal disease on dialysis
# Hyponatremia/hypokalemia/metabolic acidosis
-nephrology consult appreciated
# Type 2 diabetes
-sliding scale continued
-scheduled novolog 5U Q6H
-titrate insulin regimen as necessary.
#Dysphagia status post PEG tube
-All meds via PEG tube
-TF briefly held due to concerns GI bleed since resumed
-nutrition consult
HTN�benign multidrug-resistant
-Continue Norvasc 10 mg, clonidine transdermal patch, hydralazine 50 mg every 8h, losartan 100 mg
-CTM
#Hx CVA with immobility, dysphagia
#Seizure disorder
- hx EEG 01/04/24 no seizures
-Continue Vimpat 100 mg twice daily
-EEG repeating given AMS habitually grinding teeth
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
Keep head of bed raised to 30 degrees at all times
-May suction secretions
Hypophosphatemia
Hypokalemia
monitor and replete as necessary
#CAD prior NSTEMI,
#DVT prophylaxis
SCDs
#CODE STATUS:
-Full code
Art no longer involved in patient's care, stopped his involvement months ago as per daughter Marcela CHOPRA
Anticipated Discharge: 24 - 48 hours
Subjective/Interval History
-
Date of Service: March 08, 2024
More alert this morning
Objective Data
-
Labs:
Laboratory Results
03/08/24
04:27
WBC 12.2 H
Hgb 8.1 L
Hct 25.6 L
Plt Count 488 H
Sodium 137
Potassium 4.6 D
Chloride 95 L
Carbon Dioxide 30
BUN 38 H
Creatinine 2.1 H
Glucose 201 H
Calcium 9.4
Total Bilirubin 0.3
AST 25
ALT 16
Alkaline Phosphatase 192 H
Vital Signs:
Vital Signs
Temp Pulse Resp BP Pulse Ox
98.3 F 69 16 157/51 100
03/08/24 07:55 03/08/24 07:55 03/08/24 07:55 03/08/24 07:55 03/08/24 07:55
I&O
03/07/24 03/08/24 03/09/24
06:59 06:59 06:59
Intake Total 690 / 690 690 / 690 780 / 780
Balance 690 / 690 690 / 690 780 / 780
Review of Systems
-
History Source: Patient
All other systems: Not reviewed unless documented
Physical Exam
-
General: Well Developed, Well Nourished, No Apparent Distress and Comfortable
Respiratory: Decreased Breath Sounds
Cardiac: Regular Rhythm, S1/S2 and Murmur
GI: Soft, Nondistended and Peg Tube
Skin: Warm and Dry
Neuro: Awake, Alert and Other (gives simple one word answers)
Psych: Calm and Apparent Dementia; Negative Intact Judgement/Insight
Data Reviewed
-
Diagnostic Radiology: Report Reviewed by me
CT Scan: Image personally visualized and interpreted and Report Reviewed by me
Ultrasound: Report Reviewed by me
Labs: Labs Reviewed by me
[2024-03-08 15:00] VITALS: BP 129/47
--- NOTE | 2024-03-08 15:51 | W.PN.NEPH.PH ---
Today's Communication / Plan
-
Next dialysis will be Sunday
Assessment/Plan
-
Assessment:
ESRD on HD tunneled dialysis catheter, ME[facility]
Acute on chronic anemia likely from upper GI bleed on anticoagulants
Infected sacral decub wound
leucocytosis
Paroxysmal A-fib
Type 2 diabetes with hyperglycemia
Elevated transaminase
Dysphagia status post PEG tube
HTN�benign multidrug-
Hx CVA with immobility, dysphagia
Seizure disorder
Dementia�severe
CAD prior NSTEMI
Hyponatremia
Plan:
follow Hgb
transfuse as needed
completed abx for decub, leukocytosis persisted 12 but no fever
HD Sunday
-
-
Date of Service: March 08, 2024
CC / HPI / ROS
-
Chief Complaint:
ESRD
History of Present Illness:
hgb at around 8
WBC stable 12.5
completed abx
BP stable
Review of Systems:
non verbal, on RA
no fever
Labs
-
Labs:
WBC 12.2 10^3/uL (4.8-10.8) H 03/08/24 04:27
RBC 2.73 10^6/uL (4.20-5.40) L 03/08/24 04:27
Hgb 8.1 g/dL (12.0-16.0) L 03/08/24 04:27
Hct 25.6 % (37.0-47.0) L 03/08/24 04:27
Plt Count 488 10^3/uL (130-400) H 03/08/24 04:27
Sodium 137 mmol/L (135-145) 03/08/24 04:27
Potassium 4.6 mmol/L (3.5-5.1) D 03/08/24 04:27
Chloride 95 mmol/L (98-107) L 03/08/24 04:27
Carbon Dioxide 30 mmol/L (22-30) 03/08/24 04:27
BUN 38 mg/dl (7-17) H 03/08/24 04:27
Creatinine 2.1 mg/dL (0.6-1.0) H 03/08/24 04:27
eGFR 24.27 03/08/24 04:27
Glucose 201 mg/dl (70-99) H 03/08/24 04:27
Calcium 9.4 mg/dl (8.4-10.2) 03/08/24 04:27
Phosphorus 3.3 mg/dl (2.5-4.5) 03/03/24 05:59
Albumin 3.4 g/dl (3.5-5.0) L 03/08/24 04:27
Physical Exam
-
Vital Signs:
Vital Signs
Temp Pulse Resp BP Pulse Ox
98.4 F 73 18 129/47 100
03/08/24 15:00 03/08/24 15:00 03/08/24 15:00 03/08/24 15:00 03/08/24 15:00
Cardiovascular:: Regular rate and rhythm
Respiratory:: Bilateral: Coarse
Lung Excursion:: Normal
Abdomen:: Nontender and Soft
Bowel Sounds:: Normal
Extremity Edema:: None: Bilateral:
[2024-03-08 18:29] LABS: Glucose - Point of Care 138 mg/dl (70-99)
[2024-03-08] MEDS: NOVOLOG FLEXPEN-HIGH RESISTANCE SC (18:29)
[2024-03-08 23:26] VITALS: BP 126/43
[2024-03-09 00:15] LABS: Glucose - Point of Care 198 mg/dl (70-99)
[2024-03-09] MEDS: APRESOLINE TUBE (00:24)
[2024-03-09] MEDS: NOVOLOG FLEXPEN-HIGH RESISTANCE 2 UNITS SC ×3 (00:25→18:32)
[2024-03-09] MEDS: NOVOLOG FLEXPEN 5 UNITS SC ×4 (00:25→18:31)
[2024-03-09 04:35] LABS: Hematocrit 23.5 % (37.0-47.0); Hemoglobin 7.5 g/dL (12.0-16.0); Mean Corp Hgb Conc. 31.9 g/dL (33.0-37.0); Mean Corpuscular Hgb 28.5 pg (27.0-31.0); Mean Corpuscular Volume 89.4 fL (81.0-99.0); Mean Platelet Volume 9.4 fL (7.4-10.4); Platelet Count 516 10^3/uL (130-400); Red Blood Cell Count 2.63 10^6/uL (4.20-5.40); Red Cell Dist. Width 18.1 % (11.5-14.5); White Blood Cell Count 11.4 10^3/uL (4.8-10.8)
[2024-03-09 05:01] LABS: ALT (SGPT) 16 U/L (0-35); AST (SGOT) 27 U/L (14-36); Albumin 3.1 g/dl (3.5-5.0); Alkaline Phosphatase 185 U/L (38-126); Blood Urea Nitrogen 64 mg/dl (7-17); Calcium 9.4 mg/dl (8.4-10.2); Carbon Dioxide 29 mmol/L (22-30); Chloride 94 mmol/L (98-107); Estimated Creatinine Clearance 16 ml/min; Glucose 195 mg/dl (70-99); Potassium 4.7 mmol/L (3.5-5.1); Sodium 134 mmol/L (135-145); Total Bilirubin 0.3 mg/dl (0.2-1.3); Total Protein 6.2 g/dl (6.3-8.2); eGFR 16.48
[2024-03-09 05:55] VITALS: BMI 24.6
[2024-03-09 06:13] LABS: Glucose - Point of Care 225 mg/dl (70-99)
[2024-03-09] MEDS: NOVOLOG FLEXPEN-HIGH RESISTANCE 4 UNITS SC (06:42)
[2024-03-09 07:00] VITALS: BP 138/42
[2024-03-09] MEDS: NORVASC 10 MG TUBE (08:16)
[2024-03-09] MEDS: FERROUS SULFATE ORAL LIQUID 300 MG TUBE (08:16)
[2024-03-09] MEDS: APRESOLINE 100 MG TUBE ×3 (08:16→23:27)
[2024-03-09] MEDS: NSS (PRESERVATIVE FREE) 10 ML IV ×2 (08:16→20:39)
[2024-03-09] MEDS: LOW STRENGTH ASPIRIN 81 MG TUBE (08:17)
[2024-03-09] MEDS: COZAAR 100 MG TUBE (08:17)
[2024-03-09] MEDS: VIMPAT 100 MG TUBE ×2 (08:17→20:38)
[2024-03-09] MEDS: PROTONIX IV 40 MG IV ×2 (08:17→20:39)
[2024-03-09] MEDS: ELIQUIS 5 MG TUBE ×2 (08:17→20:38)
[2024-03-09] MEDS: DAKIN'S SOLUTION 0.125% 1/4 STRENGTH 473 ML TOPICAL ×2 (08:18→20:37)
--- NOTE | 2024-03-09 11:12 | W.PN.NEPH.PH ---
Today's Communication / Plan
-
Dialysis tomorrow
Can transfuse on dialysis tomorrow if hemoglobin continues to
Assessment/Plan
-
Assessment:
ESRD on HD tunneled dialysis catheter, [facility]
Acute on chronic anemia likely from upper GI bleed on anticoagulants
Infected sacral decub wound
leucocytosis
Paroxysmal A-fib
Type 2 diabetes with hyperglycemia
Elevated transaminase
Dysphagia status post PEG tube
HTN�benign multidrug-
Hx CVA with immobility, dysphagia
Seizure disorder
Dementia�severe
CAD prior NSTEMI
Hyponatremia
Plan:
follow Hgb, continues to drop now to 7.5
transfuse as needed
completed abx for decub, leukocytosis persisted 12 but no fever
HD Sunday, orders provided
-
-
Date of Service: March 09, 2024
CC / HPI / ROS
-
Chief Complaint:
ESRD
History of Present Illness:
hgb down to 7.5
WBC stable 11.4
completed abx
BP stable
Review of Systems:
non verbal, on RA
no fever
Labs
-
Labs:
WBC 11.4 10^3/uL (4.8-10.8) H 03/09/24 04:07
RBC 2.63 10^6/uL (4.20-5.40) L 03/09/24 04:07
Hgb 7.5 g/dL (12.0-16.0) L 03/09/24 04:07
Hct 23.5 % (37.0-47.0) L 03/09/24 04:07
Plt Count 516 10^3/uL (130-400) H 03/09/24 04:07
Sodium 134 mmol/L (135-145) L 03/09/24 04:07
Potassium 4.7 mmol/L (3.5-5.1) 03/09/24 04:07
Chloride 94 mmol/L (98-107) L 03/09/24 04:07
Carbon Dioxide 29 mmol/L (22-30) 03/09/24 04:07
BUN 64 mg/dl (7-17) H 03/09/24 04:07
Creatinine 2.9 mg/dL (0.6-1.0) H 03/09/24 04:07
eGFR 16.48 03/09/24 04:07
Glucose 195 mg/dl (70-99) H 03/09/24 04:07
Calcium 9.4 mg/dl (8.4-10.2) 03/09/24 04:07
Phosphorus 3.3 mg/dl (2.5-4.5) 03/03/24 05:59
Albumin 3.1 g/dl (3.5-5.0) L 03/09/24 04:07
Physical Exam
-
Vital Signs:
Vital Signs
Temp Pulse Resp BP Pulse Ox
98.8 F 62 16 138/42 100
03/09/24 07:00 03/09/24 08:16 03/09/24 07:00 03/09/24 08:16 03/09/24 07:00
Cardiovascular:: Regular rate and rhythm
Respiratory:: Bilateral: Coarse
Lung Excursion:: Normal
Abdomen:: Nontender and Soft
Bowel Sounds:: Normal
Extremity Edema:: None: Bilateral:
Castañeda Catheter: No
[2024-03-09 12:23] LABS: Glucose - Point of Care 160 mg/dl (70-99)
--- NOTE | 2024-03-09 13:01 | W.PN.HOSP.TC ---
Today's Communication/Plan
-
Follow-up ID recommendations
Follow-up fever curve, white count
trasnfuse/EPO as per renal
Assessment / Plan
Assessment / Plan
Physical Exam
General: No Apparent Distress, appears comfortable
HEENT: NormoCephalic, Moist mucous membranes and Atraumatic
Respiratory: Clear
Cardiac: S1/S2 and Regular Rhythm; no Murmur
GI: Soft, Non Tender, Non Distended and Normal Bowel Sounds; No Organomegaly
Musculoskeletal: No Clubbing, No Cyanosis and No Edema
Skin: Rash and Decubitus Ulcers (sacral)
Neuro: Nonverbal some communication via head gestures very limited.
# Acute on chronic anemia likely from upper GI bleed on anticoagulants v CKD
-Resumed Eliquis appears to be tolerating well.
-Hemoglobin 5.8 upon admission, transfused. transfused again 1 unit 02/22 - responded well
-EPO as per Renal
-cont to monitor cbc
-maintain hgb >7
- EGD: Esophagitis, no bleeding, clean based ulcer
-Use Protonix (pantoprazole) 40 mg PO BID for 8 weeks followed by once daily.
-GI consulted -signed off; if continuing to have drop in hemoglobin, will need to reengage GI
-Colonoscopy 12/27/2023: No source of bleeding multiple polypectomies proximal ascending colon, sigmoid colon removed with snare, internal hemorrhoids all benign neoplasm
-restarted ASA 02/20 and stable
-Restarted Eliquis 02/23 - so far H&H remains stable
#Sepsis
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
#Proctitis
-sharp excisional debridement performed with cautery and scissors 02/18
-wound cultures growing E-Coli, Proteus Mirabilis, Morganella moranii, enterococcus faecalis
-completed 13 days iv Zosyn as per ID monitor off abx; wbc up was up
�Blood cultures temperature of 101 on 03/05�cultures negative; closely monitor fever curve and initiate antibiotics if becomes hemodynamically stable or persistent temperature
-wound care consulted
-ID consult appreciated
-Cdiff neg, blood culture neg
-no underlying abscess on CT imaging although possible proctitis
#Systolic Murmur possibly d/t Anemia since resolved
#Murmur possibly artifact, patient grinding teeth during auscultation
-Echo with no gross valvular abnormality, mild TR, mild concentric LVH, EF 65 to 70%
#PEG displacement
� GI consulted, replaced PEG tube, okay to use
#Hyponatremia
-cont hd
#Hypokalemia
-monitor and replete
#Transaminitis
-most likely 2/2 to sepsis
-RUQ sono unremarkable
-Hep soler neg
-Hold statin
# nodular parenchymal scarring suspected in the superior segment of the right lower lobe.
-Outpt follow-up CT in 1 year recommended
# History of CVA 2020
#bedbound for last 2 years per daughter
#Possible acute metabolic encephalopathy 2/2 infection as above, currently nonverbal, per daughter patient able to speak few words a few weeks ago
#Suspect underlying vascular dementia
-cont asa
-CT head appreciated no acute abn's, findings suggest possible NPH and severe small vessel ischemic disease.
-Difficult to correlate findings of possible NPH given patient has been bed bound for years, is anuric ESRD
-has had progressive cognitive decline since initial hospitalization November 2023 this year though this could be due to progressive vascular dementia as opposed to NPH
-outpt follow up with Neurology recommended
# Paroxysmal A-fib
-HR controlled
-restarted Eliquis - monitor hgb stable so far
# end-stage renal disease on dialysis
# Hyponatremia/hypokalemia/metabolic acidosis
-nephrology consult appreciated
# Type 2 diabetes
-sliding scale continued
-scheduled novolog 5U Q6H
-titrate insulin regimen as necessary.
#Dysphagia status post PEG tube
-All meds via PEG tube
-TF briefly held due to concerns GI bleed since resumed
-nutrition consult
HTN�benign multidrug-resistant
-Continue Norvasc 10 mg, clonidine transdermal patch, hydralazine 50 mg every 8h, losartan 100 mg
-CTM
#Hx CVA with immobility, dysphagia
#Seizure disorder
- hx EEG 01/04/24 no seizures
-Continue Vimpat 100 mg twice daily
-EEG repeating given AMS habitually grinding teeth
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
Keep head of bed raised to 30 degrees at all times
-May suction secretions
Hypophosphatemia
Hypokalemia
monitor and replete as necessary
#CAD prior NSTEMI,
#DVT prophylaxis
SCDs
#CODE STATUS:
-Full code
Art no longer involved in patient's care, stopped his involvement months ago as per daughter Marcela CHOPRA
Anticipated Discharge: 24 - 48 hours
Subjective/Interval History
-
Date of Service: March 09, 2024
No acute events overnight
Objective Data
-
Labs:
Laboratory Results
03/09/24
04:07
WBC 11.4 H
Hgb 7.5 L
Hct 23.5 L
Plt Count 516 H
Sodium 134 L
Potassium 4.7
Chloride 94 L
Carbon Dioxide 29
BUN 64 H
Creatinine 2.9 H
Glucose 195 H
Calcium 9.4
Total Bilirubin 0.3
AST 27
ALT 16
Alkaline Phosphatase 185 H
Vital Signs:
Vital Signs
Temp Pulse Resp BP Pulse Ox
98.8 F 62 16 138/42 100
03/09/24 07:00 03/09/24 08:16 03/09/24 07:00 03/09/24 08:16 03/09/24 07:00
I&O
03/08/24 03/09/24 03/10/24
06:59 06:59 06:59
Intake Total 690 / 690 1979
Output Total 0 / 0
Balance 690 / 690 1979
Review of Systems
-
History Source: Patient
All other systems: Not reviewed unless documented
Physical Exam
-
General: Well Developed, Well Nourished, No Apparent Distress and Comfortable
Respiratory: Decreased Breath Sounds
Cardiac: Regular Rhythm, S1/S2 and Murmur
GI: Soft, Nondistended and Peg Tube
Skin: Warm and Dry
Neuro: Awake, Alert and Other (gives simple one word answers)
Psych: Calm and Apparent Dementia; Negative Intact Judgement/Insight
[2024-03-09 15:30] VITALS: BP 147/47
[2024-03-09 18:20] LABS: Glucose - Point of Care 182 mg/dl (70-99)
[2024-03-09 23:27] VITALS: BP 132/57
[2024-03-09 23:50] LABS: Glucose - Point of Care 216 mg/dl (70-99)
[2024-03-10] MEDS: NOVOLOG FLEXPEN 5 UNITS SC ×4 (01:16→17:14)
[2024-03-10] MEDS: NOVOLOG FLEXPEN-HIGH RESISTANCE 4 UNITS SC ×2 (01:17→05:27)
[2024-03-10 05:22] LABS: Glucose - Point of Care 221 mg/dl (70-99)
[2024-03-10 05:37] LABS: Hematocrit 23.1 % (37.0-47.0); Hemoglobin 7.6 g/dL (12.0-16.0); Mean Corp Hgb Conc. 32.9 g/dL (33.0-37.0); Mean Corpuscular Hgb 29.1 pg (27.0-31.0); Mean Corpuscular Volume 88.5 fL (81.0-99.0); Mean Platelet Volume 9.3 fL (7.4-10.4); Platelet Count 558 10^3/uL (130-400); Red Blood Cell Count 2.61 10^6/uL (4.20-5.40); Red Cell Dist. Width 17.8 % (11.5-14.5); White Blood Cell Count 13.6 10^3/uL (4.8-10.8)
[2024-03-10 06:00] VITALS: BMI 24.6
[2024-03-10 06:03] LABS: ALT (SGPT) 16 U/L (0-35); AST (SGOT) 28 U/L (14-36); Albumin 3.1 g/dl (3.5-5.0); Alkaline Phosphatase 192 U/L (38-126); Blood Urea Nitrogen 93 mg/dl (7-17); Calcium 9.5 mg/dl (8.4-10.2); Carbon Dioxide 28 mmol/L (22-30); Chloride 92 mmol/L (98-107); Estimated Creatinine Clearance 13 ml/min; Glucose 200 mg/dl (70-99); Potassium 5.4 mmol/L (3.5-5.1); Sodium 132 mmol/L (135-145); Total Bilirubin 0.3 mg/dl (0.2-1.3); Total Protein 6.2 g/dl (6.3-8.2); eGFR 12.71
--- NOTE | 2024-03-10 06:50 | W.PN.HOSP.TC ---
Today's Communication/Plan
-
monitor
cont HD as per nephro
Assessment / Plan
Assessment / Plan
Physical Exam
General: No Apparent Distress, appears comfortable
HEENT: NormoCephalic, Moist mucous membranes and Atraumatic
Respiratory: Clear
Cardiac: S1/S2 and Regular Rhythm; no Murmur
GI: Soft, Non Tender, Non Distended and Normal Bowel Sounds; No Organomegaly
Musculoskeletal: No Clubbing, No Cyanosis and No Edema
Skin: Rash and Decubitus Ulcers (sacral)
Neuro: Nonverbal some communication via head gestures very limited.
# Acute on chronic anemia likely from upper GI bleed on anticoagulants v CKD
-Resumed Eliquis appears to be tolerating well.
-Hemoglobin 5.8 upon admission, transfused. transfused again 1 unit 02/22 - responded well
-EPO as per Renal
-cont to monitor cbc
-maintain hgb >7
- EGD: Esophagitis, no bleeding, clean based ulcer
-Use Protonix (pantoprazole) 40 mg PO BID for 8 weeks followed by once daily.
-GI consulted -signed off; if continuing to have drop in hemoglobin, will need to reengage GI
-Colonoscopy 12/27/2023: No source of bleeding multiple polypectomies proximal ascending colon, sigmoid colon removed with snare, internal hemorrhoids all benign neoplasm
-restarted ASA 02/20 and stable
-Restarted Eliquis 02/23 - so far H&H remains stable
#Sepsis
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
#Proctitis
-sharp excisional debridement performed with cautery and scissors 02/18
-wound cultures growing E-Coli, Proteus Mirabilis, Morganella moranii, enterococcus faecalis
-completed 13 days iv Zosyn as per ID monitor off abx; wbc up was up
�Blood cultures temperature of 101 on 03/05�cultures negative; closely monitor fever curve and initiate antibiotics if becomes hemodynamically stable or persistent temperature
-wound care consulted
-ID consult appreciated
-Cdiff neg, blood culture neg
-no underlying abscess on CT imaging although possible proctitis
#Systolic Murmur possibly d/t Anemia since resolved
#Murmur possibly artifact, patient grinding teeth during auscultation
-Echo with no gross valvular abnormality, mild TR, mild concentric LVH, EF 65 to 70%
#PEG displacement
� GI consulted, replaced PEG tube, okay to use
#Hyponatremia
-cont hd
#Hypokalemia
-monitor and replete
#Transaminitis
-most likely 2/2 to sepsis
-RUQ sono unremarkable
-Hep soler neg
-Hold statin
# nodular parenchymal scarring suspected in the superior segment of the right lower lobe.
-Outpt follow-up CT in 1 year recommended
# History of CVA 2020
#bedbound for last 2 years per daughter
#Possible acute metabolic encephalopathy 2/2 infection as above, currently nonverbal, per daughter patient able to speak few words a few weeks ago
#Suspect underlying vascular dementia
-cont asa
-CT head appreciated no acute abn's, findings suggest possible NPH and severe small vessel ischemic disease.
-Difficult to correlate findings of possible NPH given patient has been bed bound for years, is anuric ESRD
-has had progressive cognitive decline since initial hospitalization November 2023 this year though this could be due to progressive vascular dementia as opposed to NPH
-outpt follow up with Neurology recommended
# Paroxysmal A-fib
-HR controlled
-restarted Eliquis - monitor hgb stable so far
# end-stage renal disease on dialysis
# Hyponatremia/hypokalemia/metabolic acidosis
-nephrology consult appreciated
# Type 2 diabetes
-sliding scale continued
-scheduled novolog 5U Q6H
-titrate insulin regimen as necessary.
#Dysphagia status post PEG tube
-All meds via PEG tube
-TF briefly held due to concerns GI bleed since resumed
-nutrition consult
HTN�benign multidrug-resistant
-Continue Norvasc 10 mg, clonidine transdermal patch, hydralazine 50 mg every 8h, losartan 100 mg
-CTM
#Hx CVA with immobility, dysphagia
#Seizure disorder
- hx EEG 01/04/24 no seizures
-Continue Vimpat 100 mg twice daily
-EEG repeating given AMS habitually grinding teeth
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
Keep head of bed raised to 30 degrees at all times
-May suction secretions
Hypophosphatemia
Hypokalemia
monitor and replete as necessary
#CAD prior NSTEMI,
#DVT prophylaxis
SCDs
#CODE STATUS:
-Full code
Art no longer involved in patient's care, stopped his involvement months ago as per daughter Marcela CHOPRA
I spent a total of 40 minutes with the patient or on the floor. More than 50% of this time involved counseling and coordination of care.
Anticipated Discharge: 24 - 48 hours
Subjective/Interval History
-
Date of Service: March 10, 2024
nonverbal. appears comfortable.
Objective Data
-
Labs:
Laboratory Results
03/10/24
05:19
WBC 13.6 H
Hgb 7.6 L
Hct 23.1 L
Plt Count 558 H
Sodium 132 L
Potassium 5.4 H
Chloride 92 L
Carbon Dioxide 28
BUN 93 H
Creatinine 3.6 H
Glucose 200 H
Calcium 9.5
Total Bilirubin 0.3
AST 28
ALT 16
Alkaline Phosphatase 192 H
Vital Signs:
Vital Signs
Temp Pulse Resp BP Pulse Ox
98.8 F 61 16 132/57 100
03/09/24 23:27 03/09/24 23:27 03/09/24 23:27 03/09/24 23:27 03/09/24 23:27
I&O
03/08/24 03/09/24 03/10/24
06:59 06:59 06:59
Intake Total 690 / 690 1979
Output Total 0 / 0
Balance 690 / 690 1979
[2024-03-10 07:00] VITALS: BP 137/53
[2024-03-10] MEDS: MANNITOL 25% 12.5 GRAMS IV ×2 (08:40→10:27)
[2024-03-10] MEDS: RETACRIT 10000 UNITS IV (09:26)
[2024-03-10] MEDS: FLEXBUMIN 25% FOR HEMODIALYSIS 12.5 GRAMS IV ×2 (09:26→10:28)
[2024-03-10] MEDS: APRESOLINE TUBE ×2 (09:57→16:59)
[2024-03-10] MEDS: COZAAR TUBE (09:57)
[2024-03-10] MEDS: NORVASC TUBE (09:57)
[2024-03-10] MEDS: VIMPAT 100 MG TUBE ×2 (09:57→22:08)
[2024-03-10] MEDS: ELIQUIS 5 MG TUBE ×2 (09:59→22:06)
[2024-03-10] MEDS: LOW STRENGTH ASPIRIN 81 MG TUBE (09:59)
[2024-03-10] MEDS: FERROUS SULFATE ORAL LIQUID 300 MG TUBE (10:04)
[2024-03-10] MEDS: PROTONIX IV 40 MG IV ×2 (10:06→22:07)
[2024-03-10] MEDS: NSS (PRESERVATIVE FREE) 10 ML IV ×2 (10:06→22:07)
[2024-03-10 11:00] VITALS: BP 106/44
[2024-03-10 11:58] LABS: Glucose - Point of Care 138 mg/dl (70-99)
[2024-03-10] MEDS: NOVOLOG FLEXPEN-HIGH RESISTANCE 1 UNITS SC (12:19)
--- NOTE | 2024-03-10 13:26 | W.PN.NEPH.HD ---
Assessment
-
pt seen during HD
vital stable
SBP 106 during visit
UF lowered
monitor BPs
high dose LAURA for persistent anemia
CVC functions well
Progress Note - Hemodialysis
-
Date of Service: March 10, 2024
Duration: 30 minutes and 3 hours
Potassium Bath: 2
Calcium Bath: 2.5
Opti-Dialyzer: 160
Ultrafiltration: Other (1-1.5kg)
Blood Flow: 400
Dialysate Flow: 600
Heparin: no
EPO: [id number]
--- NOTE | 2024-03-10 13:40 | W.PN.ID1 ---
Date of Service
Date of Service: March 10, 2024
Today's Communication
Continue to observe off antibiotics.
Assessment / Plan
Large/extensive sacral decubiti
- S/p debridement
- s/p course of abx.
Leukocytosis
-Overall improved, but remains elevated.
- at this point, suspect reactive rather than infectious.
Intermittent fevers
- afebrile x 24 h
Transaminitis
-Resolved
A-fib
NIDDM
ESRD�HD
Seizure disorder
Dementia
Dysphagia s/p PEG
Anemia
GERD
Hx CVA
Chronic diastolic CHF
HTN
Recommendations:
S/p course of Zosyn. Off antibiotics since 03/02
Blood cultures no growth to date.
Would continue to monitor white count and temperature curve.
Continue with local care to the sacral decubiti, including Dakin's solution to decrease overall superficial bioburden.
offloading of the wound as feasible - turn q2 hours
Size of wound, nutrition level, and underlying comorbidities of diabetes mellitus and end-stage renal disease all will negatively impact the patient's ability to heal.
Given multiple significant comorbidities, [facility] prognosis is poor to nil for any recovery to a reasonable quality of life.
Would expect recurrent hospitalizations and infections. Patient is 'palliative care' appropriate.
����������������������������������������������������������
Chief Complaint
-: Fever, Leukocytosis and Other (Sacral decubiti)
Subjective / Review of Systems
Review of Systems: No Fever
Vital Signs / Physical Exam
Vital Signs
Vital Signs
Temp Pulse Resp BP Pulse Ox
98.1 F 81 18 106/44 99
03/10/24 11:00 03/10/24 11:00 03/10/24 11:00 03/10/24 11:03/10/24 11:00
Physical Exam
Constitutional: No Acute Distress, Comfortable, Chronically Ill and Non-toxic
Eyes: No Conjunctival Hemorrhage
Cardiovascular: Regular Rate and S1/S2; Negative S3/S4
Pulmonary: Non Labored; Negative Wheezes
Gastrointestinal: Soft, Non Distended, Normal Bowel Sounds and No Rebound
Extremities: Edema; Negative Cyanosis or Erythema
Wound: Other (Large sacral wound currently packed. No malodor. )
Neurological: Awake
Psychological: Calm
Objective Data
Lab Data
Lab Results
03/10/24 05:19
03/10/24 05:19
PT 18.8 Sec (11.4-14.6) H 02/18/24 12:58
INR 1.59 02/18/24 12:58
APTT 35.1 Sec (23.4-35.0) H 02/18/24 12:58
Estimated Creat Clear 13 ml/min 03/10/24 05:19
Lactic Acid Cancelled 02/18/24 14:15
Total Bilirubin 0.3 mg/dl (0.2-1.3) 03/10/24 05:19
AST 28 U/L (14-36) 03/10/24 05:19
ALT 16 U/L (0-35) 03/10/24 05:19
Alkaline Phosphatase 192 U/L (38-126) H 03/10/24 05:19
Most recent labs reviewed.
Micro Results:
03/05/24 12:13 Blood Culture - Final
Blood/Venous No Growth - Final Report
02/19/24 16:36 Blood Culture - Final
Blood/Venous No Growth - Final Report
02/19/24 14:41 Wound Culture - Final
Sacral Escherichia coli
Proteus mirabilis
Morganella morganii
Enterococcus faecalis
Gram Stain - Final
02/19/24 14:41 Anaerobic Culture - Final
Sacral
02/21/24 21:48 C. difficile GDH Antigen & Toxins - Final
Feces/Stool Negative for toxigenic C.difficile
02/18/24 17:19 Wound Culture - Final
Sacral Gram Stain - Final
02/18/24 17:19 Wound Culture - Final
Decubitis Ulcer Gram Stain - Final
Imaging:
02/20/2024 CT chest/abdomen/pelvis: No evidence of pneumonia. No acute inflammatory process within the abdomen. Findings suspicious for proctitis, but without acute diverticulitis. No CT evidence to suggest discitis or osteomyelitis.
[2024-03-10 15:00] VITALS: BP 105/45
[2024-03-10 17:12] LABS: Glucose - Point of Care 172 mg/dl (70-99)
[2024-03-10] MEDS: NOVOLOG FLEXPEN-HIGH RESISTANCE 2 UNITS SC (17:14)
[2024-03-10] MEDS: DAKIN'S SOLUTION 0.125% 1/4 STRENGTH 100 ML TOPICAL (17:14)
[2024-03-10] MEDS: DAKIN'S SOLUTION 0.125% 1/4 STRENGTH 473 ML TOPICAL (22:09)
[2024-03-10 23:50] VITALS: BP 130/40
[2024-03-10 23:54] LABS: Glucose - Point of Care 288 mg/dl (70-99)
[2024-03-11] MEDS: APRESOLINE 100 MG TUBE ×2 (00:04→09:09)
[2024-03-11] MEDS: NOVOLOG FLEXPEN-HIGH RESISTANCE 7 UNITS SC (00:05)
[2024-03-11] MEDS: NOVOLOG FLEXPEN 5 UNITS SC ×4 (00:05→16:39)
[2024-03-11 05:59] LABS: Glucose - Point of Care 157 mg/dl (70-99)
[2024-03-11 06:00] VITALS: BMI 24.1
[2024-03-11] MEDS: NOVOLOG FLEXPEN-HIGH RESISTANCE 2 UNITS SC ×2 (06:04→16:39)
[2024-03-11 07:30] VITALS: BP 145/56
--- NOTE | 2024-03-11 07:48 | W.PN.HOSP.TC ---
Today's Communication/Plan
-
HD as per nephro
ongoing goals of care discussion
cont wound care
Assessment / Plan
Assessment / Plan
Physical Exam
General: No Apparent Distress, appears comfortable
HEENT: NormoCephalic, Moist mucous membranes and Atraumatic
Respiratory: Clear
Cardiac: S1/S2 and Regular Rhythm; no Murmur
GI: Soft, Non Tender, Non Distended and Normal Bowel Sounds; No Organomegaly
Musculoskeletal: No Clubbing, No Cyanosis and No Edema
Skin: Rash and Decubitus Ulcers (sacral)
Neuro: Nonverbal some communication via head gestures very limited.
# Acute on chronic anemia likely from upper GI bleed on anticoagulants v CKD
-Resumed Eliquis appears to be tolerating well.
-Hemoglobin 5.8 upon admission, transfused. transfused again 1 unit 02/22 - responded well
-EPO as per Renal
-cont to monitor cbc
-maintain hgb >7
- EGD: Esophagitis, no bleeding, clean based ulcer
-Use Protonix (pantoprazole) 40 mg PO BID for 8 weeks followed by once daily.
-GI consulted -signed off; if continuing to have drop in hemoglobin, will need to reengage GI
-Colonoscopy 12/27/2023: No source of bleeding multiple polypectomies proximal ascending colon, sigmoid colon removed with snare, internal hemorrhoids all benign neoplasm
-restarted ASA 02/20 and stable
-Restarted Eliquis 02/23 - so far H&H remains stable
#Sepsis
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
#Proctitis
-sharp excisional debridement performed with cautery and scissors 02/18
-wound cultures growing E-Coli, Proteus Mirabilis, Morganella moranii, enterococcus faecalis
-completed 13 days iv Zosyn as per ID monitor off abx; wbc remains elevated
�Blood cultures temperature of 101 on 03/05�cultures negative; closely monitor fever curve and initiate antibiotics if becomes hemodynamically stable or persistent temperature
-wound care consulted
-ID consult appreciated
-Cdiff neg, blood culture neg
-no underlying abscess on CT imaging although possible proctitis
#Systolic Murmur possibly d/t Anemia since resolved
#Murmur possibly artifact, patient grinding teeth during auscultation
-Echo with no gross valvular abnormality, mild TR, mild concentric LVH, EF 65 to 70%
#PEG displacement
� GI consulted, replaced PEG tube, okay to use
#Hyponatremia
-cont hd
#Hypokalemia
-monitor and replete
#Transaminitis
-most likely 2/2 to sepsis
-RUQ sono unremarkable
-Hep soler neg
-Hold statin
# nodular parenchymal scarring suspected in the superior segment of the right lower lobe.
-Outpt follow-up CT in 1 year recommended
# History of CVA 2020
#bedbound for last 2 years per daughter
#Possible acute metabolic encephalopathy 2/2 infection as above, currently nonverbal, per daughter patient able to speak few words a few weeks ago
#Suspect underlying vascular dementia
-cont asa
-CT head appreciated no acute abn's, findings suggest possible NPH and severe small vessel ischemic disease.
-Difficult to correlate findings of possible NPH given patient has been bed bound for years, is anuric ESRD
-has had progressive cognitive decline since initial hospitalization November 2023 this year though this could be due to progressive vascular dementia as opposed to NPH
-outpt follow up with Neurology recommended
# Paroxysmal A-fib
-HR controlled
-restarted Eliquis - monitor hgb stable so far
# end-stage renal disease on dialysis
# Hyponatremia/hypokalemia/metabolic acidosis
-nephrology consult appreciated
# Type 2 diabetes
-sliding scale continued
-scheduled novolog 5U Q6H
-titrate insulin regimen as necessary.
#Dysphagia status post PEG tube
-All meds via PEG tube
-TF briefly held due to concerns GI bleed since resumed
-nutrition consult
HTN�benign multidrug-resistant
-Continue Norvasc 10 mg, clonidine transdermal patch, hydralazine 50 mg every 8h, losartan 100 mg
-CTM
#Hx CVA with immobility, dysphagia
#Seizure disorder
- hx EEG 01/04/24 no seizures
-Continue Vimpat 100 mg twice daily
-EEG repeating given AMS habitually grinding teeth, no sz activity noted
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
Keep head of bed raised to 30 degrees at all times
-May suction secretions
Hypophosphatemia
Hypokalemia
monitor and replete as necessary
#CAD prior NSTEMI,
#DVT prophylaxis
SCDs
#CODE STATUS:
-Full code
Art no longer involved in patient's care, stopped his involvement months ago as per daughter Marcela CHOPRA
discussed with daughter Marcela poor prognosis patient likely Hospice appropriate poor quality of life/functional status bedridden for years and significant cognitive decline, essentially nonverbal for past month or so. Also discussed, if not
Hospice, patient would likely benefit from Palliative care. All questions were answered, daughter reported she will consider and discuss with family.
I spent a total of 40 minutes with the patient or on the floor. More than 50% of this time involved counseling and coordination of care.
Anticipated Discharge: 24 - 48 hours
Subjective/Interval History
-
Date of Service: March 11, 2024
nonverbal, appears comfortable, no acute distress.
Objective Data
-
Labs:
Laboratory Results
03/11/24
07:22
WBC Pending
Hgb Pending
Hct Pending
Plt Count Pending
Sodium Pending
Potassium Pending
Chloride Pending
Carbon Dioxide Pending
BUN Pending
Creatinine Pending
Glucose Pending
Calcium Pending
Total Bilirubin Pending
AST Pending
ALT Pending
Alkaline Phosphatase Pending
Vital Signs:
Vital Signs
Temp Pulse Resp BP Pulse Ox
97.9 F 74 16 130/40 100
03/10/24 23:50 03/11/24 00:04 03/10/24 23:50 03/11/24 00:04 03/10/24 23:50
I&O
03/10/24 03/11/24 03/12/24
06:59 06:59 06:59
Intake Total 600 / 600
Balance 600 / 600
[2024-03-11 07:50] LABS: Hematocrit 23.4 % (37.0-47.0); Hemoglobin 7.4 g/dL (12.0-16.0); Mean Corp Hgb Conc. 31.6 g/dL (33.0-37.0); Mean Corpuscular Hgb 28.1 pg (27.0-31.0); Mean Platelet Volume 9.3 fL (7.4-10.4); Platelet Count 556 10^3/uL (130-400); Red Blood Cell Count 2.63 10^6/uL (4.20-5.40); Red Cell Dist. Width 18.1 % (11.5-14.5)
[2024-03-11 08:15] VITALS: BP 145/56
[2024-03-11 08:41] LABS: ALT (SGPT) 18 U/L (0-35); AST (SGOT) 32 U/L (14-36); Albumin 3.2 g/dl (3.5-5.0); Alkaline Phosphatase 184 U/L (38-126); Blood Urea Nitrogen 56 mg/dl (7-17); Calcium 9.2 mg/dl (8.4-10.2); Carbon Dioxide 29 mmol/L (22-30); Chloride 92 mmol/L (98-107); Estimated Creatinine Clearance 20 ml/min; Glucose 187 mg/dl (70-99); Potassium 4.2 mmol/L (3.5-5.1); Sodium 133 mmol/L (135-145); Total Bilirubin 0.3 mg/dl (0.2-1.3); Total Protein 6.2 g/dl (6.3-8.2); eGFR 21.76
[2024-03-11] MEDS: FERROUS SULFATE ORAL LIQUID 300 MG TUBE (09:08)
[2024-03-11] MEDS: ELIQUIS 5 MG TUBE ×2 (09:09→19:55)
[2024-03-11] MEDS: PROTONIX IV 40 MG IV ×2 (09:09→19:55)
[2024-03-11] MEDS: VIMPAT 100 MG TUBE ×2 (09:09→19:55)
[2024-03-11] MEDS: NSS (PRESERVATIVE FREE) 10 ML IV ×2 (09:09→19:55)
[2024-03-11] MEDS: NORVASC 10 MG TUBE (09:10)
[2024-03-11] MEDS: DAKIN'S SOLUTION 0.125% 1/4 STRENGTH 1 ML TOPICAL ×2 (09:10→19:56)
[2024-03-11] MEDS: COZAAR 100 MG TUBE (09:10)
[2024-03-11] MEDS: LOW STRENGTH ASPIRIN 81 MG TUBE (09:10)
[2024-03-11 12:14] LABS: Glucose - Point of Care 221 mg/dl (70-99)
[2024-03-11] MEDS: NOVOLOG FLEXPEN-HIGH RESISTANCE 4 UNITS SC (12:54)
--- NOTE | 2024-03-11 14:56 | CM ---
CM reviewed chart, placed call to patients daughter, Marcela, unable to leave voicemail. CM will continue to follow for all discharge planning needs.
Plan; return to [facility] with HD when stable.
--- NOTE | 2024-03-11 14:58 | W.PN.NEPH.PH ---
Today's Communication / Plan
-
HD tomorrow
Assessment/Plan
-
Assessment:
ESRD on HD tunneled dialysis catheter, MEF [facility]
Acute on chronic anemia likely from upper GI bleed on anticoagulants
Infected sacral decub wound
leucocytosis
Paroxysmal A-fib
Type 2 diabetes with hyperglycemia
Elevated transaminase
Dysphagia status post PEG tube
HTN�benign multidrug-
Hx CVA with immobility, dysphagia
Seizure disorder
Dementia�severe
CAD prior NSTEMI
Hyponatremia
Plan:
follow Hgb, continues to drop now to 7.4
transfuse as needed
completed abx for decub, leukocytosis persisted 17 but no fever
HD tomorrow
high dose LAURA
BP are soft sometimes, decrease hydralazine to 75mg TID
-
-
Date of Service: March 11, 2024
CC / HPI / ROS
-
Chief Complaint:
ESRD
History of Present Illness:
hgb down to 7.4
WBC p at 17k
completed abx
BP stable
Review of Systems:
non verbal, on RA
no fever
Labs
-
Labs:
WBC 17.0 10^3/uL (4.8-10.8) H 03/11/24 07:22
RBC 2.63 10^6/uL (4.20-5.40) L 03/11/24 07:22
Hgb 7.4 g/dL (12.0-16.0) L 03/11/24 07:22
Hct 23.4 % (37.0-47.0) L 03/11/24 07:22
Plt Count 556 10^3/uL (130-400) H 03/11/24 07:22
Sodium 133 mmol/L (135-145) L 03/11/24 07:22
Potassium 4.2 mmol/L (3.5-5.1) 03/11/24 07:22
Chloride 92 mmol/L (98-107) L 03/11/24 07:22
Carbon Dioxide 29 mmol/L (22-30) 03/11/24 07:22
BUN 56 mg/dl (7-17) H 03/11/24 07:22
Creatinine 2.3 mg/dL (0.6-1.0) H 03/11/24 07:22
eGFR 21.76 03/11/24 07:22
Glucose 187 mg/dl (70-99) H 03/11/24 07:22
Calcium 9.2 mg/dl (8.4-10.2) 03/11/24 07:22
Phosphorus 3.3 mg/dl (2.5-4.5) 03/03/24 05:59
Albumin 3.2 g/dl (3.5-5.0) L 03/11/24 07:22
Physical Exam
-
Vital Signs:
Vital Signs
Temp Pulse Resp BP Pulse Ox
99.3 F 74 16 145/56 100
03/11/24 07:30 03/11/24 07:30 03/11/24 07:30 03/11/24 07:30 03/11/24 07:30
Cardiovascular:: Regular rate and rhythm
Respiratory:: Bilateral: CTA
Lung Excursion:: Normal
Abdomen:: Nontender and Soft
Extremity Edema:: None: Bilateral:
Castañeda Catheter: No
[2024-03-11 15:21] VITALS: BP 139/49
[2024-03-11] MEDS: APRESOLINE 75 MG TUBE (15:23)
[2024-03-11 15:27] VITALS: BP 135/44
[2024-03-11 16:34] LABS: Glucose - Point of Care 152 mg/dl (70-99)
[2024-03-11 18:34] LABS: Glucose - Point of Care 178 mg/dl (70-99)
[2024-03-11 23:16] VITALS: BP 158/65
[2024-03-12 00:01] LABS: Glucose - Point of Care 219 mg/dl (70-99)
[2024-03-12 00:09] VITALS: BP 156/47
[2024-03-12] MEDS: APRESOLINE 75 MG TUBE ×2 (00:10→16:26)
[2024-03-12] MEDS: NOVOLOG FLEXPEN-HIGH RESISTANCE 4 UNITS SC ×2 (00:12→18:01)
[2024-03-12] MEDS: NOVOLOG FLEXPEN 5 UNITS SC ×4 (00:13→18:00)
[2024-03-12 05:57] LABS: Glucose - Point of Care 191 mg/dl (70-99)
[2024-03-12 06:00] VITALS: BMI 24.0
[2024-03-12] MEDS: NOVOLOG FLEXPEN-HIGH RESISTANCE 2 UNITS SC ×2 (06:11→12:40)
[2024-03-12 07:00] VITALS: BP 157/55
--- NOTE | 2024-03-12 07:17 | W.PN.HOSP.TC ---
Today's Communication/Plan
-
monitor H&H
HD as per Nephro
cont monitoring of abx as per ID
wound care
Assessment / Plan
Assessment / Plan
Physical Exam
General: No Apparent Distress, appears comfortable
HEENT: NormoCephalic, Moist mucous membranes and Atraumatic
Respiratory: Clear
Cardiac: S1/S2 and Regular Rhythm; no Murmur
GI: Soft, Non Tender, Non Distended and Normal Bowel Sounds; No Organomegaly
Musculoskeletal: No Clubbing, No Cyanosis and No Edema
Neuro: Nonverbal noncommunicative. Responsive to verbal physical stimuli
# Acute on chronic anemia likely from upper GI bleed on anticoagulants v CKD
-Resumed Eliquis appears to be tolerating well.
-Hemoglobin 5.8 upon admission, transfused. transfused again 1 unit 02/22 - responded well
-EPO as per Renal
-cont to monitor cbc
-maintain hgb >7
- EGD: Esophagitis, no bleeding, clean based ulcer
-Protonix 40 mg BID for 8 weeks followed by once daily.
-GI consult appreciated since signed off
-Colonoscopy 12/27/2023: No source of bleeding multiple polypectomies proximal ascending colon, sigmoid colon removed with snare, internal hemorrhoids all benign neoplasm
-restarted ASA 02/20 and stable
-Restarted Eliquis 02/23 - so far H&H remains stable
#Sepsis
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
#Proctitis
-sharp excisional debridement performed with cautery and scissors 02/18
-wound cultures growing E-Coli, Proteus Mirabilis, Morganella moranii, enterococcus faecalis
-completed 13 days iv Zosyn; wbc remains elevated suspected reactive as oppose to infectious as per ID, cont monitoring off abx at this time
�monitor Temp
-wound care consult appreciated
-ID consult appreciated
-Cdiff neg, blood culture neg
-no underlying abscess on CT imaging although possible proctitis
#Systolic Murmur possibly d/t Anemia vs artifact (patient grinding teeth during auscultation)
-Echo with no gross valvular abnormality, mild TR, mild concentric LVH, EF 65 to 70%
-murmur since resolved
#PEG displacement
� GI consulted, replaced PEG tube, okay to use
#Hyponatremia
-cont hd
#Hypokalemia
-monitor and replete
#Transaminitis
-most likely 2/2 to sepsis
-RUQ sono unremarkable
-Hep soler neg
-Hold statin
# nodular parenchymal scarring suspected in the superior segment of the right lower lobe.
-Outpt follow-up CT in 1 year recommended
# History of CVA 2020
#bedbound for last 2 years per daughter
#Possible acute metabolic encephalopathy 2/2 infection as above, currently nonverbal, per daughter patient able to speak few words a few weeks ago
#Suspect underlying vascular dementia
-cont asa
-CT head appreciated no acute abn's, findings suggest possible NPH and severe small vessel ischemic disease.
-Difficult to correlate findings of possible NPH given patient has been bed bound for years, is anuric ESRD
-has had progressive cognitive decline since initial hospitalization November 2023 this year though this could be due to progressive vascular dementia as opposed to NPH
-outpt follow up with Neurology recommended
# Paroxysmal A-fib
-HR controlled
-restarted Eliquis - monitor hgb stable so far
# end-stage renal disease on dialysis
# Hyponatremia/hypokalemia/metabolic acidosis
-nephrology consult appreciated
# Type 2 diabetes
-sliding scale continued
-scheduled novolog 5U Q6H
-titrate insulin regimen as necessary.
#Dysphagia status post PEG tube
-All meds via PEG tube
-TF briefly held due to concerns GI bleed since resumed
-nutrition consult
HTN�benign multidrug-resistant
-Continue Norvasc 10 mg, clonidine transdermal patch, hydralazine 50 mg every 8h, losartan 100 mg
-CTM
#Hx CVA with immobility, dysphagia
#Seizure disorder
- hx EEG 01/04/24 no seizures
-Continue Vimpat 100 mg twice daily
-EEG repeating given AMS habitually grinding teeth, no sz activity noted
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
Keep head of bed raised to 30 degrees at all times
-May suction secretions
Hypophosphatemia
Hypokalemia
monitor and replete as necessary
#CAD prior NSTEMI,
#DVT prophylaxis
SCDs
#CODE STATUS:
-Full code
Art no longer involved in patient's care, stopped his involvement months ago as per erik CHOPRA
03/11 discussed with daughter Marcela poor prognosis patient likely Hospice appropriate poor quality of life/functional status bedridden for years and significant cognitive decline, essentially nonverbal for past month or so. Also discussed, if not
Hospice, patient would likely benefit from Palliative care. Code status was also discussed. Patient unlikely to benefit from CPR or intubation if cardiac arrest should occur and would more likely lead to prolong suffering. Discussed potential
benefit in switching to DNR. All questions were answered, daughter reported she will consider and discuss with family. No decisions have been made regarding the aforementioned discussions/goals of care.
discussed with patient's daughter Marcela CHOPRA
I spent a total of 40 minutes with the patient or on the floor. More than 50% of this time involved counseling and coordination of care.
Anticipated Discharge: 24 - 48 hours
Subjective/Interval History
-
Date of Service: March 12, 2024
Alert awake. Remains nonverbal. Otherwise appears comfortable at this time. VSS
Objective Data
-
Labs:
Laboratory Results
03/12/24
06:00
WBC Pending
Hgb Pending
Hct Pending
Plt Count Pending
Sodium Pending
Potassium Pending
Chloride Pending
Carbon Dioxide Pending
BUN Pending
Creatinine Pending
Glucose Pending
Calcium Pending
Vital Signs:
Vital Signs
Temp Pulse Resp BP Pulse Ox
97.6 F 74 16 156/47 100
03/11/24 23:16 03/12/24 00:10 03/11/24 23:16 03/12/24 00:10 03/11/24 23:16
I&O
03/11/24 03/12/24 03/13/24
06:59 06:59 06:59
Intake Total 1390 / 1390
Output Total
Balance 1365 / 1365
[2024-03-12] MEDS: NSS (PRESERVATIVE FREE) 10 ML IV ×2 (07:18→20:56)
[2024-03-12] MEDS: FERROUS SULFATE ORAL LIQUID 300 MG TUBE (07:18)
[2024-03-12] MEDS: VIMPAT 100 MG TUBE ×2 (07:18→20:55)
[2024-03-12] MEDS: PROTONIX IV 40 MG IV ×2 (07:18→20:55)
[2024-03-12] MEDS: LOW STRENGTH ASPIRIN 81 MG TUBE (07:19)
[2024-03-12] MEDS: ELIQUIS 5 MG TUBE ×2 (07:19→20:55)
[2024-03-12] MEDS: DAKIN'S SOLUTION 0.125% 1/4 STRENGTH 1 ML TOPICAL ×2 (07:20→20:56)
[2024-03-12 08:39] LABS: Hemoglobin 7.1 g/dL (12.0-16.0); Mean Corp Hgb Conc. 32.3 g/dL (33.0-37.0); Mean Corpuscular Hgb 28.6 pg (27.0-31.0); Mean Corpuscular Volume 88.7 fL (81.0-99.0); Mean Platelet Volume 9.5 fL (7.4-10.4); Platelet Count 565 10^3/uL (130-400); Red Blood Cell Count 2.48 10^6/uL (4.20-5.40); Red Cell Dist. Width 17.9 % (11.5-14.5)
[2024-03-12] MEDS: RETACRIT 12000 UNITS IV (08:54)
[2024-03-12] MEDS: APRESOLINE TUBE (09:18)
[2024-03-12] MEDS: COZAAR TUBE (09:19)
[2024-03-12] MEDS: NORVASC TUBE (09:30)
[2024-03-12 09:31] LABS: Blood Urea Nitrogen 85 mg/dl (7-17); Calcium 9.1 mg/dl (8.4-10.2); Carbon Dioxide 29 mmol/L (22-30); Chloride 90 mmol/L (98-107); Estimated Creatinine Clearance 15 ml/min; Glucose 196 mg/dl (70-99); Potassium 4.2 mmol/L (3.5-5.1); Sodium 131 mmol/L (135-145); eGFR 15.21
--- NOTE | 2024-03-12 10:29 | W.PN.NEPH.HD ---
Assessment
-
Patient seen on dialysis
Systolic blood pressure 137 at current UF
Dialysis via catheter
Progress Note - Hemodialysis
-
Date of Service: March 12, 2024
Duration: 30 minutes and 3 hours
Potassium Bath: 3
Calcium Bath: 2.5
Opti-Dialyzer: 160
Ultrafiltration: Other (2kg)
Blood Flow: 400
Dialysate Flow: 600
Heparin: none
EPO: 12K
--- NOTE | 2024-03-12 11:30 | CM ---
CM reviewed chart, per Hospitalist, goals of care discussion with daughter, will follow/be available to patient/family for all discharge planning needs.
Plan; goals of care discussion, daughter to discuss with family, LTC resident at [facility].
[2024-03-12 12:37] LABS: Glucose - Point of Care 186 mg/dl (70-99)
[2024-03-12 15:21] VITALS: BP 148/44
--- NOTE | 2024-03-12 17:18 | W.PN.ID1 ---
Date of Service
Date of Service: March 12, 2024
Today's Communication
Continue to observe off antibiotics.
Assessment / Plan
Large/extensive sacral decubiti
- S/p debridement
- s/p course of abx.
- receiving local care.
Leukocytosis
- remains elevated.
- at this point, suspect reactive rather than infectious.
Intermittent fevers
- afebrile
Transaminitis
-Resolved
A-fib
NIDDM
ESRD�HD
Seizure disorder
Dementia
Dysphagia s/p PEG
Anemia
GERD
Hx CVA
Chronic diastolic CHF
HTN
Recommendations:
S/p course of Zosyn. Off antibiotics since 03/02
Blood cultures no growth to date.
Continue to monitor white count and temperature curve.
Continue with local care to the sacral decubiti, including Dakin's solution to decrease overall superficial bioburden.
offloading of the wound as feasible - turn q2 hours
Size of wound, nutrition level, and underlying comorbidities of diabetes mellitus and end-stage renal disease all will negatively impact the patient's ability to heal.
Given multiple significant comorbidities, group home prognosis is poor to nil for any recovery to a reasonable quality of life. Additionally, doubt sacral wound will level to heal, and will likely only grow, again because of patient's underlying
comorbidities.
Would expect recurrent hospitalizations and infections. Patient is 'palliative care / hospice' appropriate.
Ongoing discussions of Hospitalist with POA noted.
����������������������������������������������������������
Chief Complaint
-: Fever, Leukocytosis and Other (Sacral decubiti)
Subjective / Review of Systems
Review of Systems: No Fever
Vital Signs / Physical Exam
Vital Signs
Vital Signs
Temp Pulse Resp BP Pulse Ox
99.2 F 76 18 148/44 100
03/12/24 15:21 03/12/24 15:21 03/12/24 15:21 03/12/24 15:21 03/12/24 15:21
Physical Exam
Constitutional: No Acute Distress, Comfortable, Chronically Ill and Non-toxic
Eyes: No Conjunctival Hemorrhage
Cardiovascular: Regular Rate and S1/S2; Negative S3/S4
Pulmonary: Non Labored; Negative Wheezes
Gastrointestinal: Soft, Non Distended, Normal Bowel Sounds and No Rebound
Extremities: Edema; Negative Cyanosis or Erythema
Wound: Other (Large sacral wound currently packed. No malodor. )
Neurological: Awake
Psychological: Calm
Objective Data
Lab Data
Lab Results
03/12/24 06:00
03/12/24 06:00
PT 18.8 Sec (11.4-14.6) H 02/18/24 12:58
INR 1.59 02/18/24 12:58
APTT 35.1 Sec (23.4-35.0) H 02/18/24 12:58
Estimated Creat Clear 15 ml/min 03/12/24 06:00
Lactic Acid Cancelled 02/18/24 14:15
Total Bilirubin 0.3 mg/dl (0.2-1.3) 03/11/24 07:22
AST 32 U/L (14-36) 03/11/24 07:22
ALT 18 U/L (0-35) 03/11/24 07:22
Alkaline Phosphatase 184 U/L (38-126) H 03/11/24 07:22
Most recent labs reviewed.
CT Scan: Image Reviewed and Report Reviewed
Micro Results:
03/05/24 12:13 Blood Culture - Final
Blood/Venous No Growth - Final Report
02/19/24 16:36 Blood Culture - Final
Blood/Venous No Growth - Final Report
02/19/24 14:41 Wound Culture - Final
Sacral Escherichia coli
Proteus mirabilis
Morganella morganii
Enterococcus faecalis
Gram Stain - Final
02/19/24 14:41 Anaerobic Culture - Final
Sacral
02/21/24 21:48 C. difficile GDH Antigen & Toxins - Final
Feces/Stool Negative for toxigenic C.difficile
02/18/24 17:19 Wound Culture - Final
Sacral Gram Stain - Final
02/18/24 17:19 Wound Culture - Final
Decubitis Ulcer Gram Stain - Final
Imaging:
02/20/2024 CT chest/abdomen/pelvis: No evidence of pneumonia. No acute inflammatory process within the abdomen. Findings suspicious for proctitis, but without acute diverticulitis. No CT evidence to suggest discitis or osteomyelitis.
[2024-03-12 18:03] LABS: Glucose - Point of Care 232 mg/dl (70-99)
[2024-03-12 23:14] LABS: Glucose - Point of Care 274 mg/dl (70-99)
[2024-03-12 23:15] VITALS: BP 118/46
[2024-03-13 00:28] VITALS: BP 154/45
[2024-03-13] MEDS: APRESOLINE 75 MG TUBE ×3 (00:31→16:19)
[2024-03-13] MEDS: NOVOLOG FLEXPEN-HIGH RESISTANCE 7 UNITS SC (00:32)
[2024-03-13] MEDS: NOVOLOG FLEXPEN 5 UNITS SC ×4 (00:33→17:56)
[2024-03-13 05:27] LABS: Glucose - Point of Care 225 mg/dl (70-99)
[2024-03-13 06:00] VITALS: BMI 22.5
[2024-03-13] MEDS: NOVOLOG FLEXPEN-HIGH RESISTANCE 4 UNITS SC ×2 (06:05→17:56)
--- NOTE | 2024-03-13 07:29 | W.PN.HOSP.TC ---
Today's Communication/Plan
-
Liquid stools, checking repeat CDiff stool cultures
cont HD as per Nephro
monitor H&H
Assessment / Plan
Assessment / Plan
Physical Exam
General: No Apparent Distress, appears comfortable
HEENT: NormoCephalic, Moist mucous membranes and Atraumatic
Respiratory: Clear
Cardiac: S1/S2 and Regular Rhythm; no Murmur
GI: Soft, Non Tender, Non Distended and Normal Bowel Sounds; No Organomegaly
Musculoskeletal: No Clubbing, No Cyanosis and No Edema
Neuro: Nonverbal noncommunicative. Responsive to verbal physical stimuli
# Acute on chronic anemia likely from upper GI bleed on anticoagulants v CKD
-Resumed Eliquis appears to be tolerating well.
-Hemoglobin 5.8 upon admission, transfused. transfused again 1 unit 02/22 - responded well
-EPO as per Renal
-cont to monitor cbc
-maintain hgb >7
- EGD: Esophagitis, no bleeding, clean based ulcer
-Protonix 40 mg BID for 8 weeks followed by once daily.
-GI consult appreciated since signed off
-Colonoscopy 12/27/2023: No source of bleeding multiple polypectomies proximal ascending colon, sigmoid colon removed with snare, internal hemorrhoids all benign neoplasm
-restarted ASA 02/20 and stable
-Restarted Eliquis 02/23 - so far H&H remains stable
#Sepsis
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
#Proctitis
-sharp excisional debridement performed with cautery and scissors 02/18
-wound cultures growing E-Coli, Proteus Mirabilis, Morganella moranii, enterococcus faecalis
-completed 13 days iv Zosyn; wbc remains elevated suspected reactive as oppose to infectious as per ID, cont monitoring off abx at this time
�monitor Temp
-wound care consult appreciated
-ID consult appreciated
-Cdiff neg, blood culture neg
-no underlying abscess on CT imaging although possible proctitis
#Systolic Murmur possibly d/t Anemia vs artifact (patient grinding teeth during auscultation)
-Echo with no gross valvular abnormality, mild TR, mild concentric LVH, EF 65 to 70%
-murmur since resolved
#PEG displacement
� GI consulted, replaced PEG tube, okay to use
#Hyponatremia
-cont hd
#Hypokalemia
-monitor and replete
#Transaminitis
-most likely 2/2 to sepsis
-RUQ sono unremarkable
-Hep soler neg
-Hold statin
# nodular parenchymal scarring suspected in the superior segment of the right lower lobe.
-Outpt follow-up CT in 1 year recommended
# History of CVA 2020
#bedbound for last 2 years per daughter
#Possible acute metabolic encephalopathy 2/2 infection as above, currently nonverbal, per daughter patient able to speak few words a few weeks ago
#Suspect underlying vascular dementia
-cont asa
-CT head appreciated no acute abn's, findings suggest possible NPH and severe small vessel ischemic disease.
-Difficult to correlate findings of possible NPH given patient has been bed bound for years, is anuric ESRD
-has had progressive cognitive decline since initial hospitalization November 2023 this year though this could be due to progressive vascular dementia as opposed to NPH
-outpt follow up with Neurology recommended
# Paroxysmal A-fib
-HR controlled
-restarted Eliquis - monitor hgb stable so far
# end-stage renal disease on dialysis
# Hyponatremia/hypokalemia/metabolic acidosis
-nephrology consult appreciated
# Type 2 diabetes
-sliding scale continued
-scheduled novolog 5U Q6H
-titrate insulin regimen as necessary.
#Dysphagia status post PEG tube
-All meds via PEG tube
-TF briefly held due to concerns GI bleed since resumed
-nutrition consult
HTN�benign multidrug-resistant
-Continue Norvasc 10 mg, clonidine transdermal patch, hydralazine 50 mg every 8h, losartan 100 mg
-CTM
#Hx CVA with immobility, dysphagia
#Seizure disorder
- hx EEG 01/04/24 no seizures
-Continue Vimpat 100 mg twice daily
-EEG repeating given AMS habitually grinding teeth, no sz activity noted
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
Keep head of bed raised to 30 degrees at all times
-May suction secretions
Hypophosphatemia
Hypokalemia
monitor and replete as necessary
#CAD prior NSTEMI,
#DVT prophylaxis
SCDs
#CODE STATUS:
-Full code
Art no longer involved in patient's care, stopped his involvement months ago as per daughter Marcela CHOPRA
03/11 discussed with daughter Marcela poor prognosis patient likely Hospice appropriate poor quality of life/functional status bedridden for years and significant cognitive decline, essentially nonverbal for past month or so. Also discussed, if not
Hospice, patient would likely benefit from Palliative care. Code status was also discussed. Patient unlikely to benefit from CPR or intubation if cardiac arrest should occur and would more likely lead to prolong suffering. Discussed potential
benefit in switching to DNR. All questions were answered, daughter reported she will consider and discuss with family.
So far no decisions have been made regarding the aforementioned above discussions/goals of care.
discussed with patient's daughter Marcela CHOPRA
I spent a total of 40 minutes with the patient or on the floor. More than 50% of this time involved counseling and coordination of care.
Anticipated Discharge: 24 - 48 hours
Subjective/Interval History
-
Date of Service: March 13, 2024
Objective Data
-
Labs:
Laboratory Results
03/13/24
06:00
WBC Pending
Hgb Pending
Hct Pending
Plt Count Pending
Sodium Pending
Potassium Pending
Chloride Pending
Carbon Dioxide Pending
BUN Pending
Creatinine Pending
Glucose Pending
Calcium Pending
Vital Signs:
Vital Signs
Temp Pulse Resp BP Pulse Ox
99.1 F 77 16 154/45 100
03/12/24 23:15 03/13/24 00:31 03/12/24 23:15 03/13/24 00:31 03/12/24 23:15
I&O
03/12/24 03/13/24 03/14/24
06:59 06:59 06:59
Intake Total 1390 / 1390 1440 / 1440
Output Total
Balance 1365 / 1365 1415 / 1415
[2024-03-13 07:30] VITALS: BP 150/98
[2024-03-13 08:16] LABS: Hematocrit 22.8 % (37.0-47.0); Hemoglobin 7.3 g/dL (12.0-16.0); Mean Corpuscular Hgb 29.6 pg (27.0-31.0); Mean Corpuscular Volume 92.3 fL (81.0-99.0); Mean Platelet Volume 9.5 fL (7.4-10.4); Platelet Count 549 10^3/uL (130-400); Red Blood Cell Count 2.47 10^6/uL (4.20-5.40); Red Cell Dist. Width 18.2 % (11.5-14.5); White Blood Cell Count 16.6 10^3/uL (4.8-10.8)
[2024-03-13] MEDS: FERROUS SULFATE ORAL LIQUID 300 MG TUBE (08:50)
[2024-03-13] MEDS: VIMPAT 100 MG TUBE ×2 (08:50→21:33)
[2024-03-13] MEDS: LOW STRENGTH ASPIRIN 81 MG TUBE (08:51)
[2024-03-13] MEDS: COZAAR 100 MG TUBE (08:51)
[2024-03-13] MEDS: ELIQUIS 5 MG TUBE ×2 (08:51→21:33)
[2024-03-13] MEDS: NORVASC 10 MG TUBE (08:51)
[2024-03-13] MEDS: PROTONIX IV 40 MG IV ×2 (08:52→21:34)
[2024-03-13] MEDS: NSS (PRESERVATIVE FREE) 10 ML IV ×2 (08:52→21:33)
[2024-03-13] MEDS: DAKIN'S SOLUTION 0.125% 1/4 STRENGTH 473 ML TOPICAL (08:54)
[2024-03-13 08:57] LABS: Blood Urea Nitrogen 54 mg/dl (7-17); Calcium 9.2 mg/dl (8.4-10.2); Carbon Dioxide 30 mmol/L (22-30); Chloride 96 mmol/L (98-107); Estimated Creatinine Clearance 19 ml/min; Glucose 163 mg/dl (70-99); Potassium 4.3 mmol/L (3.5-5.1); Sodium 137 mmol/L (135-145); eGFR 20.68
[2024-03-13] MEDS: CATAPRES-TTS-1 0.1 MG TRANSDERM (09:16)
[2024-03-13 12:00] VITALS: BP 112/44
[2024-03-13 12:13] LABS: Glucose - Point of Care 163 mg/dl (70-99)
--- NOTE | 2024-03-13 12:29 | W.PN.NEPH.PH ---
Today's Communication / Plan
-
Dialysis tomorrow
Assessment/Plan
-
Assessment:
ESRD on HD tunneled dialysis catheter, MEF [facility]
Acute on chronic anemia likely from upper GI bleed on anticoagulants
Infected sacral decub wound
leucocytosis
Paroxysmal A-fib
Type 2 diabetes with hyperglycemia
Elevated transaminase
Dysphagia status post PEG tube
HTN�benign multidrug-
Hx CVA with immobility, dysphagia
Seizure disorder
Dementia�severe
CAD prior NSTEMI
Hyponatremia
Plan:
follow Hgb, continues to drop now to 7.3
transfuse as needed
completed abx for decub, leukocytosis persisted 16 but no fever
HD tomorrow , orders provided
high dose LAURA
BP are elevated with reduced hydralazine
-
-
Date of Service: March 13, 2024
CC / HPI / ROS
-
Chief Complaint:
ESRD
History of Present Illness:
hgb down to 7.6
WBC p at 16k
completed abx
BP stable
Review of Systems:
non verbal, on RA
no fever
Labs
-
Labs:
WBC 16.6 10^3/uL (4.8-10.8) H 03/13/24 07:43
RBC 2.47 10^6/uL (4.20-5.40) L 03/13/24 07:43
Hgb 7.3 g/dL (12.0-16.0) L 03/13/24 07:43
Hct 22.8 % (37.0-47.0) L 03/13/24 07:43
Plt Count 549 10^3/uL (130-400) H 03/13/24 07:43
Sodium 137 mmol/L (135-145) 03/13/24 07:43
Potassium 4.3 mmol/L (3.5-5.1) 03/13/24 07:43
Chloride 96 mmol/L (98-107) L 03/13/24 07:43
Carbon Dioxide 30 mmol/L (22-30) 03/13/24 07:43
BUN 54 mg/dl (7-17) H 03/13/24 07:43
Creatinine 2.4 mg/dL (0.6-1.0) H 03/13/24 07:43
eGFR 20.68 03/13/24 07:43
Glucose 163 mg/dl (70-99) H 03/13/24 07:43
Calcium 9.2 mg/dl (8.4-10.2) 03/13/24 07:43
Phosphorus 3.3 mg/dl (2.5-4.5) 03/03/24 05:59
Albumin 3.2 g/dl (3.5-5.0) L 03/11/24 07:22
Physical Exam
-
Vital Signs:
Vital Signs
Temp Pulse Resp BP Pulse Ox
97.6 F 70 18 112/44 96
03/13/24 12:00 03/13/24 12:00 03/13/24 12:00 03/13/24 12:00 03/13/24 12:00
Cardiovascular:: Regular rate and rhythm
Respiratory:: Bilateral: CTA
Lung Excursion:: Normal
Abdomen:: Nontender and Soft
Extremity Edema:: None: Bilateral:
Castañeda Catheter: No
[2024-03-13] MEDS: NOVOLOG FLEXPEN-HIGH RESISTANCE 2 UNITS SC (12:32)
[2024-03-13 15:00] VITALS: BP 133/90
--- NOTE | 2024-03-13 15:30 | W.PN.ID1 ---
Date of Service
Date of Service: March 13, 2024
Today's Communication
Sign off.
Assessment / Plan
Large/extensive sacral decubiti
- S/p debridement
- s/p course of abx.
- receiving local care.
Leukocytosis
- remains elevated.
- at this point, suspect reactive rather than infectious.
Intermittent fevers
- afebrile
Transaminitis
-Resolved
A-fib
NIDDM
ESRD�HD
Seizure disorder
Dementia
Dysphagia s/p PEG
Anemia
GERD
Hx CVA
Chronic diastolic CHF
HTN
Recommendations:
S/p course of Zosyn. Off antibiotics since 03/02/2024
Blood cultures no growth to date.
Continue with local care to the sacral decubiti, including Dakin's solution to decrease overall superficial bioburden.
offloading of the wound as feasible - turn q2 hours
Size of wound, nutrition level, and underlying comorbidities of diabetes mellitus and end-stage renal disease all will negatively impact the patient's ability to heal.
Given multiple significant comorbidities, care home prognosis is poor to nil for any recovery to a reasonable quality of life. Additionally, doubt sacral wound will level to heal, and will likely only grow, again because of patient's underlying
comorbidities.
Would expect recurrent hospitalizations and infections. Patient is 'palliative care / hospice' appropriate.
Ongoing discussions of Hospitalist with POA noted.
Little more to offer from a Infectious Disease standpoint.
Will see again at your request.
����������������������������������������������������������
Chief Complaint
-: Fever, Leukocytosis and Other (Sacral decubiti)
Subjective / Review of Systems
Review of Systems: No Fever
Vital Signs / Physical Exam
Vital Signs
Vital Signs
Temp Pulse Resp BP Pulse Ox
97.6 F 70 18 112/44 96
10/03/24 12:00 03/13/24 12:00 03/13/24 12:00 03/13/24 12:00 03/13/24 12:00
Physical Exam
Constitutional: No Acute Distress, Comfortable, Chronically Ill and Non-toxic
Cardiovascular: Regular Rate and S1/S2; Negative S3/S4
Pulmonary: Non Labored
Gastrointestinal: Soft and Non Distended
Extremities: Edema; Negative Cyanosis or Erythema
Wound: Other (Large sacral wound ; dressed)
Psychological: Calm
Objective Data
Lab Data
Lab Results
03/13/24 07:43
03/13/24 07:43
PT 18.8 Sec (11.4-14.6) H 02/18/24 12:58
INR 1.59 02/18/24 12:58
APTT 35.1 Sec (23.4-35.0) H 02/18/24 12:58
Estimated Creat Clear 19 ml/min 03/13/24 07:43
Lactic Acid Cancelled 02/18/24 14:15
Total Bilirubin 0.3 mg/dl (0.2-1.3) 03/11/24 07:22
AST 32 U/L (14-36) 03/11/24 07:22
ALT 18 U/L (0-35) 03/11/24 07:22
Alkaline Phosphatase 184 U/L (38-126) H 03/11/24 07:22
Most recent labs reviewed.
Micro Results:
03/13/24 13:09 C. difficile GDH Antigen & Toxins - Final
Feces/Stool Negative for toxigenic C.difficile
03/13/24 13:09 Salmonella/Shigella Culture - Pending
Feces/Stool Campylobacter Culture - Pending
Shiga Toxin Test - Pending
03/05/24 12:13 Blood Culture - Final
Blood/Venous No Growth - Final Report
02/19/24 16:36 Blood Culture - Final
Blood/Venous No Growth - Final Report
02/19/24 14:41 Wound Culture - Final
Sacral Escherichia coli
Proteus mirabilis
Morganella morganii
Enterococcus faecalis
Gram Stain - Final
02/19/24 14:41 Anaerobic Culture - Final
Sacral
02/21/24 21:48 C. difficile GDH Antigen & Toxins - Final
Feces/Stool Negative for toxigenic C.difficile
02/18/24 17:19 Wound Culture - Final
Sacral Gram Stain - Final
02/18/24 17:19 Wound Culture - Final
Decubitis Ulcer Gram Stain - Final
Imaging:
02/20/2024 CT chest/abdomen/pelvis: No evidence of pneumonia. No acute inflammatory process within the abdomen. Findings suspicious for proctitis, but without acute diverticulitis. No CT evidence to suggest discitis or osteomyelitis.
[2024-03-13 17:21] LABS: Glucose - Point of Care 204 mg/dl (70-99)
[2024-03-13] MEDS: DAKIN'S SOLUTION 0.125% 1/4 STRENGTH 1 ML TOPICAL (21:34)
[2024-03-13 23:38] VITALS: BP 133/46
[2024-03-14 00:06] LABS: Glucose - Point of Care 202 mg/dl (70-99)
[2024-03-14] MEDS: APRESOLINE 75 MG TUBE ×2 (00:34→16:27)
[2024-03-14] MEDS: NOVOLOG FLEXPEN 5 UNITS SC ×4 (00:34→17:40)
[2024-03-14] MEDS: NOVOLOG FLEXPEN-HIGH RESISTANCE 4 UNITS SC ×3 (00:35→12:52)
[2024-03-14 05:48] VITALS: BMI 23.3
[2024-03-14 06:08] LABS: Glucose - Point of Care 236 mg/dl (70-99)
--- NOTE | 2024-03-14 07:32 | W.PN.HOSP.TC ---
Today's Communication/Plan
-
HD as per nephro
imodium 2mg daily
1PRBC
monitor H&H
Assessment / Plan
Assessment / Plan
Physical Exam
General: No Apparent Distress, appears comfortable
HEENT: NormoCephalic, Moist mucous membranes and Atraumatic
Respiratory: Clear
Cardiac: S1/S2 and Regular Rhythm; no Murmur
GI: Soft, Non Tender, Non Distended and Normal Bowel Sounds; No Organomegaly
Musculoskeletal: No Clubbing, No Cyanosis and No Edema
Neuro: Responsive to verbal physical stimuli, more alert today some head gestures for communication yes or no but limited, remains largely nonverbal
# Acute on chronic anemia likely from upper GI bleed on anticoagulants v CKD
-Resumed Eliquis appears to be tolerating well.
-Hemoglobin 5.8 upon admission, transfused and responded well
-EPO as per Renal
-cont to monitor cbc
-maintain hgb >7
- EGD: Esophagitis, no bleeding, clean based ulcer
-Protonix 40 mg BID for 8 weeks followed by once daily.
-GI consult appreciated since signed off
-Colonoscopy 12/27/2023: No source of bleeding multiple polypectomies proximal ascending colon, sigmoid colon removed with snare, internal hemorrhoids all benign neoplasm
-restarted ASA 02/20
-Restarted Eliquis 02/23
#Anemia persists likely 2/2 ESRD
#suspect anemia of chronic disease contributing
03/14 Hgb slow trend down to 7, receiving 4th transfusion of hospitalization
considering discontinuing aspirin and continuing with Eliquis monotherapy
Diarrhea likely 2/2 tube feeds
Cdiff neg
fecal management system in place to prevent contamination of decubitus wound
low dose imodium 2 mg daily started
#Sepsis
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
#Proctitis
-sharp excisional debridement performed with cautery and scissors 02/18
-wound cultures growing E-Coli, Proteus Mirabilis, Morganella moranii, enterococcus faecalis
-completed 13 days iv Zosyn; wbc remains elevated suspected reactive as oppose to infectious as per ID, cont monitoring off abx at this time
�monitor Temp
-wound care consult appreciated
-ID consult appreciated
-Cdiff neg, blood culture neg
-no underlying abscess on CT imaging although possible proctitis
#Systolic Murmur possibly d/t Anemia vs artifact (patient grinding teeth during auscultation)
-Echo with no gross valvular abnormality, mild TR, mild concentric LVH, EF 65 to 70%
-murmur since resolved
#PEG displacement
� GI consulted, replaced PEG tube, okay to use
#Hyponatremia
-cont hd
#Hypokalemia
-monitor and replete
#Transaminitis
-most likely 2/2 to sepsis
-RUQ sono unremarkable
-Hep soler neg
-Hold statin
# nodular parenchymal scarring suspected in the superior segment of the right lower lobe.
-Outpt follow-up CT in 1 year recommended
# History of CVA 2020
#bedbound for last 2 years per daughter
#Possible acute metabolic encephalopathy 2/2 infection as above, currently nonverbal, per daughter patient able to speak few words a few weeks ago
#Suspect underlying vascular dementia
-cont asa
-CT head appreciated no acute abn's, findings suggest possible NPH and severe small vessel ischemic disease.
-Difficult to correlate findings of possible NPH given patient has been bed bound for years, is anuric ESRD
-has had progressive cognitive decline since initial hospitalization November 2023 this year though this could be due to progressive vascular dementia as opposed to NPH
-outpt follow up with Neurology recommended
# Paroxysmal A-fib
-HR controlled
-restarted Eliquis - monitor hgb stable so far
# end-stage renal disease on dialysis
# Hyponatremia/hypokalemia/metabolic acidosis
-nephrology consult appreciated
# Type 2 diabetes
-sliding scale continued
-scheduled novolog 5U Q6H
-titrate insulin regimen as necessary.
#Dysphagia status post PEG tube
-All meds via PEG tube
-TF briefly held due to concerns GI bleed since resumed
-nutrition consult
HTN�benign multidrug-resistant
-Continue Norvasc 10 mg, clonidine transdermal patch, hydralazine 50 mg every 8h, losartan 100 mg
-CTM
#Hx CVA with immobility, dysphagia
#Seizure disorder
- hx EEG 01/04/24 no seizures
-Continue Vimpat 100 mg twice daily
-EEG repeating given AMS habitually grinding teeth, no sz activity noted
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
Keep head of bed raised to 30 degrees at all times
-May suction secretions
Hypophosphatemia
Hypokalemia
monitor and replete as necessary
#CAD prior NSTEMI,
#DVT prophylaxis
SCDs
#CODE STATUS:
-Full code
Art no longer involved in patient's care, stopped his involvement months ago as per daughter Marcela CHOPRA
03/11 discussed with daughter Marcela poor prognosis patient likely Hospice appropriate poor quality of life/functional status bedridden for years and significant cognitive decline, essentially nonverbal for past month or so. Also discussed, if not
Hospice, patient would likely benefit from Palliative care. Code status was also discussed. Patient unlikely to benefit from CPR or intubation if cardiac arrest should occur and would more likely lead to prolong suffering. Discussed potential
benefit in switching to DNR. All questions were answered, daughter reported she will consider and discuss with family.
So far no decisions have been made regarding above discussions/goals of care.
discussed with patient's daughter Marcela CHOPRA
I spent a total of 40 minutes with the patient or on the floor. More than 50% of this time involved counseling and coordination of care.
Anticipated Discharge: 24 - 48 hours
Subjective/Interval History
-
Date of Service: March 14, 2024
More alert and interactive this morning. Some head gestures yes or no during conversation but limited. Denied pain.
Objective Data
-
Labs:
Laboratory Results
03/14/24
06:00
WBC Pending
Hgb Pending
Hct Pending
Plt Count Pending
Sodium Pending
Potassium Pending
Chloride Pending
Carbon Dioxide Pending
BUN Pending
Creatinine Pending
Glucose Pending
Calcium Pending
Vital Signs:
Vital Signs
Temp Pulse Resp BP Pulse Ox
99.5 F 67 14 133/46 100
03/13/24 23:38 03/14/24 00:34 03/13/24 23:38 03/14/24 00:34 03/13/24 23:38
I&O
03/13/24 03/14/24 03/15/24
06:59 06:59 06:59
Intake Total 1440 / 1440 0 / 0
Output Total 25 / 0 / 0
Balance 1415 / 1415 0 / 0
[2024-03-14 07:45] VITALS: BP 154/49
[2024-03-14] MEDS: DAKIN'S SOLUTION 0.125% 1/4 STRENGTH TOPICAL (08:00)
[2024-03-14] MEDS: VIMPAT TUBE (08:00)
[2024-03-14] MEDS: APRESOLINE TUBE (08:00)
[2024-03-14] MEDS: ELIQUIS TUBE (08:00)
[2024-03-14] MEDS: COZAAR TUBE (08:00)
[2024-03-14 08:21] LABS: Hematocrit 21.4 % (37.0-47.0); Mean Corp Hgb Conc. 32.7 g/dL (33.0-37.0); Mean Corpuscular Hgb 28.9 pg (27.0-31.0); Mean Corpuscular Volume 88.4 fL (81.0-99.0); Mean Platelet Volume 9.3 fL (7.4-10.4); Platelet Count 631 10^3/uL (130-400); Red Blood Cell Count 2.42 10^6/uL (4.20-5.40); Red Cell Dist. Width 18.4 % (11.5-14.5); White Blood Cell Count 14.5 10^3/uL (4.8-10.8)
[2024-03-14 08:43] LABS: Blood Urea Nitrogen 82 mg/dl (7-17); Carbon Dioxide 28 mmol/L (22-30); Chloride 95 mmol/L (98-107); Estimated Creatinine Clearance 16 ml/min; Glucose 222 mg/dl (70-99); Potassium 4.9 mmol/L (3.5-5.1); Sodium 134 mmol/L (135-145); eGFR 16.48
[2024-03-14] MEDS: NORVASC TUBE (09:00)
[2024-03-14] MEDS: RETACRIT 10000 UNITS IV (09:12)
[2024-03-14] MEDS: RETACRIT 2000 UNITS IV (09:13)
--- NOTE | 2024-03-14 09:57 | W.PN.NEPH.HD ---
Assessment
-
pt seen during HD
vital stable
hb low, transfusion per primary
UF as tolerates
off abx
CVC functions well
Progress Note - Hemodialysis
-
Date of Service: March 14, 2024
Duration: 30 minutes and 3 hours
Potassium Bath: 3
Calcium Bath: 2.5
Opti-Dialyzer: 160
Ultrafiltration: Other (1.5-2kg)
Blood Flow: 350
Dialysate Flow: 600
Heparin: no
EPO: [id number]
[2024-03-14] MEDS: HEPARIN 4000 UNITS INTRACATH (11:01)
[2024-03-14 11:59] LABS: Glucose - Point of Care 224 mg/dl (70-99)
[2024-03-14] MEDS: VIMPAT 100 MG TUBE ×2 (12:57→22:21)
[2024-03-14] MEDS: LOW STRENGTH ASPIRIN 81 MG TUBE (12:57)
[2024-03-14] MEDS: NSS (PRESERVATIVE FREE) 10 ML IV ×2 (12:58→21:14)
[2024-03-14] MEDS: PROTONIX IV 40 MG IV ×2 (12:58→21:14)
[2024-03-14 14:42] VITALS: BP 144/51
[2024-03-14 15:01] VITALS: BP 120/45
--- NOTE | 2024-03-14 15:08 | CM ---
CM reviewed chart, awaiting decision from family regarding goals of care. CM will continue to follow for all discharge planning needs.
Plan; awaiting family decision regarding goals of care, hospice/PAL care vs LTC [facility] with HD.
--- NOTE | 2024-03-14 15:15 | PTCARENOTE ---
1500 Started one unit of PRBC'S as ordered per MD. Checked with second RN per protocol. Stayed with pt first 15 minutes. VS stable. Pt tolerating blood transfusion, continue to monitor pt closely.
[2024-03-14] MEDS: FERROUS SULFATE ORAL LIQUID 300 MG TUBE (16:27)
[2024-03-14] MEDS: IMODIUM LIQUID 2 MG TUBE (16:29)
[2024-03-14 16:40] VITALS: BP 158/50
[2024-03-14 16:42] VITALS: BP 158/50
[2024-03-14 17:37] LABS: Glucose - Point of Care 178 mg/dl (70-99)
[2024-03-14] MEDS: NOVOLOG FLEXPEN-HIGH RESISTANCE 2 UNITS SC (17:40)
[2024-03-14] MEDS: ELIQUIS 5 MG TUBE (21:13)
[2024-03-14] MEDS: DAKIN'S SOLUTION 0.125% 1/4 STRENGTH 473 ML TOPICAL (21:15)
[2024-03-14] MEDS: FLUSH (NSS) 1 FLUSH IV (21:25)
[2024-03-14 23:11] VITALS: BP 175/65
[2024-03-15 00:13] LABS: Glucose - Point of Care 176 mg/dl (70-99)
[2024-03-15] MEDS: APRESOLINE 75 MG TUBE ×3 (00:55→17:39)
[2024-03-15] MEDS: NOVOLOG FLEXPEN 5 UNITS SC ×4 (01:00→18:48)
[2024-03-15] MEDS: NOVOLOG FLEXPEN-HIGH RESISTANCE 2 UNITS SC ×2 (01:01→12:08)
[2024-03-15 06:00] VITALS: BMI 24.9
[2024-03-15 06:03] LABS: Glucose - Point of Care 110 mg/dl (70-99)
[2024-03-15] MEDS: NOVOLOG FLEXPEN-HIGH RESISTANCE 1 UNITS SC (06:05)
[2024-03-15 07:25] VITALS: BP 128/43
[2024-03-15 07:30] LABS: Hematocrit 26.1 % (37.0-47.0); Hemoglobin 8.6 g/dL (12.0-16.0); Mean Corpuscular Hgb 28.5 pg (27.0-31.0); Mean Corpuscular Volume 86.4 fL (81.0-99.0); Platelet Count 487 10^3/uL (130-400); Red Blood Cell Count 3.02 10^6/uL (4.20-5.40); Red Cell Dist. Width 18.1 % (11.5-14.5); White Blood Cell Count 16.1 10^3/uL (4.8-10.8)
--- NOTE | 2024-03-15 07:38 | W.PN.HOSP.TC ---
Today's Communication/Plan
-
increased imodium 2mg BID
cont wound care
tube feeds
glycemic control
blood pressure control
Assessment / Plan
Assessment / Plan
Physical Exam
General: No Apparent Distress, appears comfortable
HEENT: NormoCephalic, Moist mucous membranes and Atraumatic
Respiratory: Clear
Cardiac: S1/S2 and Regular Rhythm; no Murmur
GI: Soft, Non Tender, Non Distended and Normal Bowel Sounds; No Organomegaly
Musculoskeletal: No Clubbing, No Cyanosis and No Edema
Neuro: Responsive to verbal physical stimuli, remains largely nonverbal, rarely communicates via head gestures yes or no
# Acute on chronic anemia likely from upper GI bleed on anticoagulants v CKD
-Resumed Eliquis appears to be tolerating well.
-Hemoglobin 5.8 upon admission, transfused and responded well
-EPO as per Renal
-cont to monitor cbc
-maintain hgb >7
- EGD: Esophagitis, no bleeding, clean based ulcer
-Protonix 40 mg BID for 8 weeks followed by once daily.
-GI consult appreciated since signed off
-Colonoscopy 12/27/2023: No source of bleeding multiple polypectomies proximal ascending colon, sigmoid colon removed with snare, internal hemorrhoids all benign neoplasm
-restarted ASA 02/20
-Restarted Eliquis 02/23
#Anemia persists likely 2/2 ESRD
#suspect anemia of chronic disease contributing
03/14 Hgb slow trend down to 7 received 4th transfusion of hospitalization with good response noted
Diarrhea likely 2/2 tube feeds
Cdiff neg
fecal management system in place to prevent contamination of decubitus wound
low dose imodium 2 mg daily started titrated up to BID
#Sepsis
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
#Proctitis
-sharp excisional debridement performed with cautery and scissors 02/18
-wound cultures growing E-Coli, Proteus Mirabilis, Morganella moranii, enterococcus faecalis
-completed 13 days iv Zosyn; wbc remains elevated suspected reactive as oppose to infectious as per ID, cont monitoring off abx at this time
�monitor Temp
-wound care consult appreciated
-ID consult appreciated
-Cdiff neg, blood culture neg
-no underlying abscess on CT imaging although possible proctitis
#Systolic Murmur possibly d/t Anemia vs artifact (patient grinding teeth during auscultation)
-Echo with no gross valvular abnormality, mild TR, mild concentric LVH, EF 65 to 70%
-murmur since resolved
#PEG displacement
� GI consulted, replaced PEG tube, okay to use
#Hyponatremia
-cont hd
#Hypokalemia
-monitor and replete
#Transaminitis
-most likely 2/2 to sepsis
-RUQ sono unremarkable
-Hep soler neg
-Hold statin
# nodular parenchymal scarring suspected in the superior segment of the right lower lobe.
-Outpt follow-up CT in 1 year recommended
# History of CVA 2020
#bedbound for last 2 years per daughter
#Possible acute metabolic encephalopathy 2/2 infection as above, currently nonverbal, per daughter patient able to speak few words a few weeks ago
#Suspect underlying vascular dementia
-cont asa
-CT head appreciated no acute abn's, findings suggest possible NPH and severe small vessel ischemic disease.
-Difficult to correlate findings of possible NPH given patient has been bed bound for years, is anuric ESRD
-has had progressive cognitive decline since initial hospitalization November 2023 this year though this could be due to progressive vascular dementia as opposed to NPH
-outpt follow up with Neurology recommended
# Paroxysmal A-fib
-HR controlled
-cont Eliquis
# end-stage renal disease on dialysis
# Hyponatremia/hypokalemia/metabolic acidosis
-nephrology consult appreciated
# Type 2 diabetes
-sliding scale continued
-scheduled novolog 5U Q6H
-titrate insulin regimen as necessary.
#Dysphagia status post PEG tube
-All meds via PEG tube
-TF briefly held due to concerns GI bleed since resumed
-nutrition consult
HTN�benign multidrug-resistant
-Continue Norvasc 10 mg, clonidine transdermal patch, hydralazine 50 mg every 8h, losartan 100 mg
-CTM
#Hx CVA with immobility, dysphagia
#Seizure disorder
- hx EEG 01/04/24 no seizures
-Continue Vimpat 100 mg twice daily
-EEG repeating given AMS habitually grinding teeth, no sz activity noted
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
Keep head of bed raised to 30 degrees at all times
-May suction secretions
Hypophosphatemia
Hypokalemia
monitor and replete as necessary
#CAD prior NSTEMI,
#DVT prophylaxis
SCDs
#CODE STATUS:
-Full code
Art no longer involved in patient's care, stopped his involvement months ago as per daughter Marcela CHOPRA
03/11 discussed with daughter Marcela poor prognosis patient likely Hospice appropriate poor quality of life/functional status bedridden for years and significant cognitive decline, essentially nonverbal for past month or so. Also discussed, if not
Hospice, patient would likely benefit from Palliative care. Code status was also discussed. Patient unlikely to benefit from CPR or intubation if cardiac arrest should occur and would more likely lead to prolong suffering. Discussed potential
benefit in switching to DNR. All questions were answered, daughter reported she will consider and discuss with family.
So far no decisions have been made regarding above discussions/goals of care.
03/15/24 patient's daughter KEYSHA Medrano called to provide update, no answer received, brief update left in message along with call back number.
I spent a total of 40 minutes with the patient or on the floor. More than 50% of this time involved counseling and coordination of care.
Anticipated Discharge: Today
Subjective/Interval History
-
Date of Service: March 15, 2024
Nonverbal. Awake alert. responsive to verbal stimuli but noncommunicative.
Objective Data
-
Labs:
Laboratory Results
03/15/24
07:02
WBC 16.1 H
Hgb 8.6 L D
Hct 26.1 L
Plt Count 487 H D
Sodium Pending
Potassium Pending
Chloride Pending
Carbon Dioxide Pending
BUN Pending
Creatinine Pending
Glucose Pending
Calcium Pending
Vital Signs:
Vital Signs
Temp Pulse Resp BP Pulse Ox
99.5 F 70 18 175/65 100
03/14/24 23:11 03/15/24 00:55 03/14/24 23:11 03/15/24 00:55 03/14/24 23:11
I&O
03/14/24 03/15/24 03/16/24
06:59 06:59 06:59
Intake Total 0 / 0 700 / 700 560 / 560
Output Total 0 / 0
Balance 0 / 0 700 / 700 560 / 560
[2024-03-15 07:51] LABS: Blood Urea Nitrogen 54 mg/dl (7-17); Calcium 9.1 mg/dl (8.4-10.2); Carbon Dioxide 27 mmol/L (22-30); Chloride 96 mmol/L (98-107); Estimated Creatinine Clearance 21 ml/min; Glucose 91 mg/dl (70-99); Potassium 4.2 mmol/L (3.5-5.1); Sodium 136 mmol/L (135-145); eGFR 22.95
[2024-03-15] MEDS: DAKIN'S SOLUTION 0.125% 1/4 STRENGTH 1 ML TOPICAL (09:52)
[2024-03-15] MEDS: VIMPAT 100 MG TUBE ×2 (09:53→21:17)
[2024-03-15] MEDS: FERROUS SULFATE ORAL LIQUID 300 MG TUBE (09:53)
[2024-03-15] MEDS: PROTONIX IV 40 MG IV ×2 (09:54→21:10)
[2024-03-15] MEDS: NSS (PRESERVATIVE FREE) 10 ML IV ×2 (09:54→21:10)
[2024-03-15] MEDS: COZAAR 100 MG TUBE (09:54)
[2024-03-15] MEDS: IMODIUM LIQUID 2 MG TUBE ×2 (09:54→21:17)
[2024-03-15] MEDS: NORVASC 10 MG TUBE (09:55)
[2024-03-15] MEDS: LOW STRENGTH ASPIRIN 81 MG TUBE (09:55)
[2024-03-15] MEDS: ELIQUIS 5 MG TUBE ×2 (09:55→21:17)
[2024-03-15 11:52] LABS: Glucose - Point of Care 176 mg/dl (70-99)
--- NOTE | 2024-03-15 13:30 | W.PN.NEPH.PH ---
Today's Communication / Plan
-
HD sunday
Assessment/Plan
-
Assessment:
ESRD on HD tunneled dialysis catheter, ME[facility]
Acute on chronic anemia likely from upper GI bleed on anticoagulants
Infected sacral decub wound
leucocytosis
Paroxysmal A-fib
Type 2 diabetes with hyperglycemia
Elevated transaminase
Dysphagia status post PEG tube
HTN�benign multidrug-
Hx CVA with immobility, dysphagia
Seizure disorder
Dementia�severe
CAD prior NSTEMI
Hyponatremia
Plan:
follow Hgb,better s/p PRBC
transfuse as needed
completed abx for decub, leukocytosis persisted 16 but no fever
HD Sunday
high dose LAURA wiht HD
bp stable, monitor with meds
-
-
Date of Service: March 15, 2024
CC / HPI / ROS
-
Chief Complaint:
ESRD
History of Present Illness:
hgb better at 8.6 post PRBC
WBC p at 16k, no fever
completed abx
BP stable
Review of Systems:
non verbal, on RA
sleeping
Labs
-
Labs:
WBC 16.1 10^3/uL (4.8-10.8) H 03/15/24 07:02
RBC 3.02 10^6/uL (4.20-5.40) L 03/15/24 07:02
Hgb 8.6 g/dL (12.0-16.0) L D 03/15/24 07:02
Hct 26.1 % (37.0-47.0) L 03/15/24 07:02
Plt Count 487 10^3/uL (130-400) H D 03/15/24 07:02
Sodium 136 mmol/L (135-145) 03/15/24 07:02
Potassium 4.2 mmol/L (3.5-5.1) 03/15/24 07:02
Chloride 96 mmol/L (98-107) L 03/15/24 07:02
Carbon Dioxide 27 mmol/L (22-30) 03/15/24 07:02
BUN 54 mg/dl (7-17) H 03/15/24 07:02
Creatinine 2.2 mg/dL (0.6-1.0) H 03/15/24 07:02
eGFR 22.95 03/15/24 07:02
Glucose 91 mg/dl (70-99) 03/15/24 07:02
Calcium 9.1 mg/dl (8.4-10.2) 03/15/24 07:02
Phosphorus 3.3 mg/dl (2.5-4.5) 03/03/24 05:59
Albumin 3.2 g/dl (3.5-5.0) L 03/11/24 07:22
Physical Exam
-
Vital Signs:
Vital Signs
Temp Pulse Resp BP Pulse Ox
99.1 F 69 16 128/43 100
03/15/24 07:25 03/15/24 07:25 03/15/24 07:25 03/15/24 07:25 03/15/24 07:25
Cardiovascular:: Regular rate and rhythm
Respiratory:: Bilateral: CTA (decreased)
Lung Excursion:: Normal
Abdomen:: Nontender
Extremity Edema:: None: Bilateral:
Castañeda Catheter: No
[2024-03-15 15:59] VITALS: BP 136/45
[2024-03-15 18:14] LABS: Glucose - Point of Care 230 mg/dl (70-99)
[2024-03-15] MEDS: NOVOLOG FLEXPEN-HIGH RESISTANCE 4 UNITS SC (18:47)
[2024-03-15] MEDS: DAKIN'S SOLUTION 0.125% 1/4 STRENGTH 473 ML TOPICAL (21:17)
[2024-03-15] MEDS: FLUSH (NSS) 2 FLUSH IV (21:21)
[2024-03-15 23:13] VITALS: BP 132/35
[2024-03-16 00:24] LABS: Glucose - Point of Care 253 mg/dl (70-99)
[2024-03-16] MEDS: NOVOLOG FLEXPEN 5 UNITS SC ×4 (00:39→17:53)
[2024-03-16] MEDS: NOVOLOG FLEXPEN-HIGH RESISTANCE 7 UNITS SC (00:40)
[2024-03-16] MEDS: APRESOLINE 75 MG TUBE ×3 (00:43→15:59)
[2024-03-16 06:00] VITALS: BMI 25.9
[2024-03-16 06:10] LABS: Glucose - Point of Care 216 mg/dl (70-99)
[2024-03-16] MEDS: NOVOLOG FLEXPEN-HIGH RESISTANCE 4 UNITS SC (06:24)
[2024-03-16 07:00] VITALS: BP 121/36
--- NOTE | 2024-03-16 08:47 | W.PN.HOSP.TC ---
Today's Communication/Plan
-
monitor H&H
wound care
cont imodium
maintain fecal mgmt system while diarrhea persists
HD as per Nephro
Glycemic control BP control
Assessment / Plan
Assessment / Plan
Physical Exam
General: No Apparent Distress, appears comfortable
HEENT: NormoCephalic, Moist mucous membranes and Atraumatic
Respiratory: Clear
Cardiac: S1/S2 and Regular Rhythm; no Murmur
GI: Soft, Non Tender, Non Distended and Normal Bowel Sounds; No Organomegaly
Musculoskeletal: No Clubbing, No Cyanosis and No Edema
Neuro: Responsive to verbal physical stimuli, remains largely nonverbal, rarely communicates via head gestures yes or no
# Acute on chronic anemia likely from upper GI bleed on anticoagulants v CKD
-Resumed Eliquis appears to be tolerating well.
-Hemoglobin 5.8 upon admission, transfused and responded well
-EPO as per Renal
-cont to monitor cbc
-maintain hgb >7
- EGD: Esophagitis, no bleeding, clean based ulcer
-Protonix 40 mg BID for 8 weeks followed by once daily.
-GI consult appreciated since signed off
-Colonoscopy 12/27/2023: No source of bleeding multiple polypectomies proximal ascending colon, sigmoid colon removed with snare, internal hemorrhoids all benign neoplasm
-restarted ASA 02/20 Eliquis 02/23 potentially may need to consider discontinuing one or the other if anemia continues to persistently worsens
#Anemia persists likely 2/2 ESRD
#suspect anemia of chronic disease contributing
03/14 Hgb slow trend down to 7 received 4th transfusion of hospitalization with good response noted
Possible ASA Eliquis combination exacerbating anemia, consideration discontinuation as above
Diarrhea likely 2/2 tube feeds
Cdiff neg
fecal management system in place to prevent contamination of decubitus wound
low dose imodium 2 mg daily started titrated up to BID
Some improvement noted however liquid diarrhea otherwise persists, consider increase imodium to TID if diarrhea continues
#Sepsis
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
#Proctitis
-sharp excisional debridement performed with cautery and scissors 02/18
-wound cultures growing E-Coli, Proteus Mirabilis, Morganella moranii, enterococcus faecalis
-completed 13 days iv Zosyn; wbc remains elevated suspected reactive as oppose to infectious as per ID, cont monitoring off abx at this time
�monitor Temp
-wound care consult appreciated
-ID consult appreciated
-Cdiff neg, blood culture neg
-no underlying abscess on CT imaging although possible proctitis
#Systolic Murmur possibly d/t Anemia vs artifact (patient grinding teeth during auscultation)
-Echo with no gross valvular abnormality, mild TR, mild concentric LVH, EF 65 to 70%
-murmur since resolved
#PEG displacement
� GI consulted, replaced PEG tube, okay to use
#Hyponatremia
-cont hd
#Hypokalemia
-monitor and replete
#Transaminitis
-most likely 2/2 to sepsis
-RUQ sono unremarkable
-Hep soler neg
-Hold statin
# nodular parenchymal scarring suspected in the superior segment of the right lower lobe.
-Outpt follow-up CT in 1 year recommended
# History of CVA 2020
#bedbound for last 2 years per daughter
#Possible acute metabolic encephalopathy 2/2 infection as above, currently nonverbal, per daughter patient able to speak few words a few weeks ago
#Suspect underlying vascular dementia
-cont asa
-CT head appreciated no acute abn's, findings suggest possible NPH and severe small vessel ischemic disease.
-Difficult to correlate findings of possible NPH given patient has been bed bound for years, is anuric ESRD
-has had progressive cognitive decline since initial hospitalization November 2023 this year though this could be due to progressive vascular dementia as opposed to NPH
-outpt follow up with Neurology recommended
# Paroxysmal A-fib
-HR controlled
-cont Eliquis
# end-stage renal disease on dialysis
# Hyponatremia/hypokalemia/metabolic acidosis
-nephrology consult appreciated
# Type 2 diabetes
-sliding scale continued
-scheduled novolog 5U Q6H
-titrate insulin regimen as necessary.
#Dysphagia status post PEG tube
-All meds via PEG tube
-TF briefly held due to concerns GI bleed since resumed
-nutrition consult
HTN�benign multidrug-resistant
-Continue Norvasc 10 mg, clonidine transdermal patch, hydralazine 50 mg every 8h, losartan 100 mg
-CTM
#Hx CVA with immobility, dysphagia
#Seizure disorder
- hx EEG 01/04/24 no seizures
-Continue Vimpat 100 mg twice daily
-EEG repeating given AMS habitually grinding teeth, no sz activity noted
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
Keep head of bed raised to 30 degrees at all times
-May suction secretions
Hypophosphatemia
Hypokalemia
monitor and replete as necessary
#CAD prior NSTEMI,
#DVT prophylaxis
SCDs
#CODE STATUS:
-Full code
Art no longer involved in patient's care, stopped his involvement months ago as per daughter Marcela CHOPRA
03/11 discussed with daughter Marcela poor prognosis patient likely Hospice appropriate poor quality of life/functional status bedridden for years and significant cognitive decline, essentially nonverbal for past month or so. Also discussed, if not
Hospice, patient would likely benefit from Palliative care. Code status was also discussed. Patient unlikely to benefit from CPR or intubation if cardiac arrest should occur and would more likely lead to prolong suffering. Discussed potential
benefit in switching to DNR. All questions were answered, daughter reported she will consider and discuss with family.
So far no decisions have been made regarding above discussions/goals of care.
03/15/24 patient's daughter POA Marcela called to provide update, no answer received, brief update left in message along with call back number.
03/16/24 discussed with patient's brother Hossein at bedside
I spent a total of 40 minutes with the patient or on the floor. More than 50% of this time involved counseling and coordination of care.
Anticipated Discharge: 24 - 48 hours
Subjective/Interval History
-
Date of Service: March 16, 2024
Nonverbal. Patient's brother Hossein Veto present during evaluation
Objective Data
-
Vital Signs:
Vital Signs
Temp Pulse Resp BP Pulse Ox
99.1 F 63 16 121/36 100
03/16/24 07:00 03/16/24 07:00 03/16/24 07:00 03/16/24 07:00 03/16/24 07:00
I&O
03/15/24 03/16/24 03/17/24
06:59 06:59 06:59
Intake Total 1320 / 1320 1340 / 1340
Balance 1320 / 1320 1340 / 1340
[2024-03-16] MEDS: COZAAR 100 MG TUBE (09:11)
[2024-03-16] MEDS: ELIQUIS 5 MG TUBE ×2 (09:11→20:28)
[2024-03-16] MEDS: FERROUS SULFATE ORAL LIQUID 300 MG TUBE (09:12)
[2024-03-16] MEDS: LOW STRENGTH ASPIRIN 81 MG TUBE (09:12)
[2024-03-16] MEDS: IMODIUM LIQUID 2 MG TUBE ×2 (09:12→20:28)
[2024-03-16] MEDS: NORVASC 10 MG TUBE (09:13)
[2024-03-16] MEDS: PROTONIX IV 40 MG IV ×2 (09:13→20:28)
[2024-03-16] MEDS: NSS (PRESERVATIVE FREE) 10 ML IV ×2 (09:13→20:28)
[2024-03-16] MEDS: VIMPAT 100 MG TUBE ×2 (09:15→20:28)
[2024-03-16] MEDS: DAKIN'S SOLUTION 0.125% 1/4 STRENGTH 1 ML TOPICAL ×2 (09:16→20:27)
[2024-03-16 12:11] LABS: Glucose - Point of Care 188 mg/dl (70-99)
[2024-03-16] MEDS: NOVOLOG FLEXPEN-HIGH RESISTANCE 2 UNITS SC ×2 (12:17→17:53)
[2024-03-16 15:00] VITALS: BP 136/46
--- NOTE | 2024-03-16 16:23 | W.PN.NEPH.PH ---
Addendum entered and electronically signed by Aggie Osorio MD 03/16/24 16:26:
check SPEP with persistent anemia
Original Note:
Today's Communication / Plan
-
HD tomorrow
Assessment/Plan
-
Assessment:
ESRD on HD tunneled dialysis catheter, ME[facility]
Acute on chronic anemia likely from upper GI bleed on anticoagulants
Infected sacral decub wound
leucocytosis
Paroxysmal A-fib
Type 2 diabetes with hyperglycemia
Elevated transaminase
Dysphagia status post PEG tube
HTN�benign multidrug-
Hx CVA with immobility, dysphagia
Seizure disorder
Dementia�severe
CAD prior NSTEMI
Hyponatremia
Plan:
follow Hgb,better s/p PRBC , no labs today
transfuse as needed
completed abx for decub, leukocytosis persisted 16 but no fever
HD Sunday
high dose LAURA wiht HD
bp stable, monitor with meds
tolerating TF
-
-
Date of Service: March 16, 2024
CC / HPI / ROS
-
Chief Complaint:
ESRD
History of Present Illness:
hgb better at 8.6 post PRBC, no labs today
WBC p at 16k, no fever
completed abx
BP stable
Review of Systems:
non verbal, on RA
sleeping
Labs
-
Labs:
WBC 16.1 10^3/uL (4.8-10.8) H 03/15/24 07:02
RBC 3.02 10^6/uL (4.20-5.40) L 03/15/24 07:02
Hgb 8.6 g/dL (12.0-16.0) L D 03/15/24 07:02
Hct 26.1 % (37.0-47.0) L 03/15/24 07:02
Plt Count 487 10^3/uL (130-400) H D 03/15/24 07:02
Sodium 136 mmol/L (135-145) 03/15/24 07:02
Potassium 4.2 mmol/L (3.5-5.1) 03/15/24 07:02
Chloride 96 mmol/L (98-107) L 03/15/24 07:02
Carbon Dioxide 27 mmol/L (22-30) 03/15/24 07:02
BUN 54 mg/dl (7-17) H 03/15/24 07:02
Creatinine 2.2 mg/dL (0.6-1.0) H 03/15/24 07:02
eGFR 22.95 03/15/24 07:02
Glucose 91 mg/dl (70-99) 03/15/24 07:02
Calcium 9.1 mg/dl (8.4-10.2) 03/15/24 07:02
Phosphorus 3.3 mg/dl (2.5-4.5) 03/03/24 05:59
Albumin 3.2 g/dl (3.5-5.0) L 03/11/24 07:22
Physical Exam
-
Vital Signs:
Vital Signs
Temp Pulse Resp BP Pulse Ox
98.4 F 68 16 136/46 95
03/16/24 15:00 03/16/24 15:00 03/16/24 15:00 03/16/24 15:00 03/16/24 15:00
Cardiovascular:: Regular rate and rhythm
Respiratory:: Bilateral: CTA (anteriorly)
Lung Excursion:: Normal
Abdomen:: Nontender and Soft
Extremity Edema:: None: Bilateral:
Castañeda Catheter: No
[2024-03-16 17:39] LABS: Glucose - Point of Care 187 mg/dl (70-99)
[2024-03-16] MEDS: FLUSH (NSS) 1 FLUSH IV (20:30)
[2024-03-16 23:27] VITALS: BP 147/55
[2024-03-16 23:59] LABS: Glucose - Point of Care 286 mg/dl (70-99)
[2024-03-17] MEDS: NOVOLOG FLEXPEN-HIGH RESISTANCE 7 UNITS SC (00:11)
[2024-03-17] MEDS: NOVOLOG FLEXPEN 5 UNITS SC ×4 (00:12→17:01)
[2024-03-17] MEDS: APRESOLINE 75 MG TUBE ×3 (00:13→16:43)
[2024-03-17 05:16] LABS: Glucose - Point of Care 248 mg/dl (70-99)
[2024-03-17] MEDS: NOVOLOG FLEXPEN-HIGH RESISTANCE 4 UNITS SC ×2 (05:36→12:59)
[2024-03-17 05:38] VITALS: BMI 23.3
[2024-03-17 07:30] VITALS: BP 162/55
[2024-03-17] MEDS: COZAAR 100 MG TUBE (08:39)
[2024-03-17] MEDS: LOW STRENGTH ASPIRIN 81 MG TUBE (08:40)
[2024-03-17] MEDS: NORVASC 10 MG TUBE (08:40)
[2024-03-17] MEDS: PROTONIX IV 40 MG IV ×2 (08:40→20:10)
[2024-03-17] MEDS: ELIQUIS 5 MG TUBE ×2 (08:40→20:09)
[2024-03-17] MEDS: NSS (PRESERVATIVE FREE) 10 ML IV ×2 (08:41→20:10)
[2024-03-17] MEDS: FERROUS SULFATE ORAL LIQUID 300 MG TUBE (08:42)
[2024-03-17] MEDS: VIMPAT 100 MG TUBE ×2 (08:42→20:10)
[2024-03-17] MEDS: IMODIUM LIQUID 2 MG TUBE ×2 (08:42→20:10)
[2024-03-17] MEDS: DAKIN'S SOLUTION 0.125% 1/4 STRENGTH 473 ML TOPICAL (09:17)
[2024-03-17 11:53] VITALS: BP 142/48
[2024-03-17 12:36] LABS: Glucose - Point of Care 212 mg/dl (70-99)
[2024-03-17 13:03] LABS: Hematocrit 25.4 % (37.0-47.0); Hemoglobin 8.3 g/dL (12.0-16.0); Mean Corp Hgb Conc. 32.7 g/dL (33.0-37.0); Mean Corpuscular Hgb 28.7 pg (27.0-31.0); Mean Corpuscular Volume 87.9 fL (81.0-99.0); Mean Platelet Volume 9.5 fL (7.4-10.4); Platelet Count 596 10^3/uL (130-400); Red Blood Cell Count 2.89 10^6/uL (4.20-5.40); Red Cell Dist. Width 17.7 % (11.5-14.5); White Blood Cell Count 19.8 10^3/uL (4.8-10.8)
[2024-03-17 13:14] LABS: Calcium 9.5 mg/dl (8.4-10.2); Carbon Dioxide 29 mmol/L (22-30); Chloride 92 mmol/L (98-107); Estimated Creatinine Clearance 11 ml/min; Glucose 213 mg/dl (70-99); Magnesium 2.7 mg/dl (1.6-2.3); Phosphorus 2.4 mg/dl (2.5-4.5); Sodium 133 mmol/L (135-145); eGFR 10.27
--- NOTE | 2024-03-17 13:37 | W.PN.NEPH.HD ---
Assessment
-
Seen on HD. no new issues. VSS, access ok
Progress Note - Hemodialysis
-
Date of Service: March 17, 2024
Duration: 30 minutes and 3 hours
Potassium Bath: 3
Calcium Bath: 2.5
Opti-Dialyzer: 160
Ultrafiltration: Other (1kg)
Blood Flow: 400
Dialysate Flow: 600
Heparin: no
EPO: 72928 units
[2024-03-17 13:54] LABS: Blood Urea Nitrogen 119 mg/dl (7-17)
[2024-03-17] MEDS: RETACRIT 2000 UNITS IV (14:11)
[2024-03-17] MEDS: RETACRIT 10000 UNITS IV (14:11)
[2024-03-17] MEDS: FLEXBUMIN 25% FOR HEMODIALYSIS 12.5 GRAMS IV (14:39)
--- NOTE | 2024-03-17 14:39 | W.PN.HOSP.TC ---
Today's Communication/Plan
-
monitor wbc, hgb
hd today
Assessment / Plan
Assessment / Plan
Physical Exam
General: No Apparent Distress, appears comfortable
HEENT: NormoCephalic, Moist mucous membranes and Atraumatic
Respiratory: Clear
Cardiac: S1/S2 and Regular Rhythm; no Murmur
GI: Soft, Non Tender, Non Distended and Normal Bowel Sounds; No Organomegaly
Musculoskeletal: No Clubbing, No Cyanosis and No Edema
Neuro: Responsive to verbal physical stimuli, remains largely nonverbal, rarely communicates via head gestures yes or no
# Acute on chronic anemia likely from upper GI bleed on anticoagulants v CKD
-Resumed Eliquis appears to be tolerating well.
-Hemoglobin 5.8 upon admission, transfused and responded well
-EPO as per Renal
-cont to monitor cbc
-maintain hgb >7
- EGD: Esophagitis, no bleeding, clean based ulcer
-Protonix 40 mg BID for 8 weeks followed by once daily.
-GI consult appreciated since signed off
-Colonoscopy 12/27/2023: No source of bleeding multiple polypectomies proximal ascending colon, sigmoid colon removed with snare, internal hemorrhoids all benign neoplasm
-restarted ASA 02/20 Eliquis 02/23 potentially may need to consider discontinuing one or the other if anemia continues to persistently worsens
#Anemia persists likely 2/2 ESRD
#suspect anemia of chronic disease contributing
03/14 Hgb slow trend down to 7 received 4th transfusion of hospitalization with good response noted
Possible ASA Eliquis combination exacerbating anemia, consideration discontinuation as above
-SPEP sent
Diarrhea likely 2/2 tube feeds
Cdiff neg
fecal management system in place to prevent contamination of decubitus wound
low dose imodium 2 mg daily started titrated up to BID
Some improvement noted however liquid diarrhea otherwise persists, consider increase imodium to TID if diarrhea continues
#Sepsis
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
#Proctitis
-sharp excisional debridement performed with cautery and scissors 02/18
-wound cultures growing E-Coli, Proteus Mirabilis, Morganella moranii, enterococcus faecalis
-completed 13 days iv Zosyn; wbc remains elevated suspected reactive as oppose to infectious as per ID, cont monitoring off abx at this time
�monitor Temp
-wound care consult appreciated
-ID consult appreciated
-Cdiff neg, blood culture neg
-no underlying abscess on CT imaging although possible proctitis
#Systolic Murmur possibly d/t Anemia vs artifact (patient grinding teeth during auscultation)
-Echo with no gross valvular abnormality, mild TR, mild concentric LVH, EF 65 to 70%
-murmur since resolved
#PEG displacement
� GI consulted, replaced PEG tube, okay to use
#Hyponatremia
-cont hd
#Hypokalemia
-monitor and replete
#Transaminitis
-most likely 2/2 to sepsis
-RUQ sono unremarkable
-Hep soler neg
-Hold statin
# nodular parenchymal scarring suspected in the superior segment of the right lower lobe.
-Outpt follow-up CT in 1 year recommended
# History of CVA 2020
#bedbound for last 2 years per daughter
#Possible acute metabolic encephalopathy 2/2 infection as above, currently nonverbal, per daughter patient able to speak few words a few weeks ago
#Suspect underlying vascular dementia
-cont asa
-CT head appreciated no acute abn's, findings suggest possible NPH and severe small vessel ischemic disease.
-Difficult to correlate findings of possible NPH given patient has been bed bound for years, is anuric ESRD
-has had progressive cognitive decline since initial hospitalization November 2023 this year though this could be due to progressive vascular dementia as opposed to NPH
-outpt follow up with Neurology recommended
# Paroxysmal A-fib
-HR controlled
-cont Eliquis
# end-stage renal disease on dialysis
# Hyponatremia/hypokalemia/metabolic acidosis
-nephrology consult appreciated
# Type 2 diabetes
-sliding scale continued
-scheduled novolog 5U Q6H
-titrate insulin regimen as necessary.
#Dysphagia status post PEG tube
-All meds via PEG tube
-TF briefly held due to concerns GI bleed since resumed
-nutrition consult
HTN�benign multidrug-resistant
-Continue Norvasc 10 mg, clonidine transdermal patch, hydralazine 50 mg every 8h, losartan 100 mg
-CTM
#Hx CVA with immobility, dysphagia
#Seizure disorder
- hx EEG 01/04/24 no seizures
-Continue Vimpat 100 mg twice daily
-EEG repeating given AMS habitually grinding teeth, no sz activity noted
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
Keep head of bed raised to 30 degrees at all times
-May suction secretions
Hypophosphatemia
Hypokalemia
monitor and replete as necessary
#CAD prior NSTEMI,
#DVT prophylaxis
SCDs
#CODE STATUS:
-Full code
Art no longer involved in patient's care, stopped his involvement months ago as per daughter Marcela CHOPRA
03/11 discussed with erik Medrano poor prognosis patient likely Hospice appropriate poor quality of life/functional status bedridden for years and significant cognitive decline, essentially nonverbal for past month or so. Also discussed, if not
Hospice, patient would likely benefit from Palliative care. Code status was also discussed. Patient unlikely to benefit from CPR or intubation if cardiac arrest should occur and would more likely lead to prolong suffering. Discussed potential
benefit in switching to DNR. All questions were answered, daughter reported she will consider and discuss with family.
So far no decisions have been made regarding above discussions/goals of care.
Anticipated Discharge: > 48 hours
Subjective/Interval History
-
Date of Service: March 17, 2024
No acute events
Objective Data
-
Labs:
Laboratory Results
03/17/24
12:32
WBC 19.8 H
Hgb 8.3 L
Hct 25.4 L
Plt Count 596 H D
Sodium 133 L
Potassium 5.0
Chloride 92 L
Carbon Dioxide 29
BUN 119 H*
Creatinine 4.3 H*
Glucose 213 H
Calcium 9.5
Vital Signs:
Vital Signs
Temp Pulse Resp BP Pulse Ox
98.5 F 66 16 142/48 100
03/17/24 11:53 03/17/24 11:53 03/17/24 11:53 03/17/24 11:53 03/17/24 11:53
I&O
03/16/24 03/17/24 03/18/24
06:59 06:59 06:59
Intake Total 1340 / 1340 1700 / 1700
Balance 1340 / 1340 1700 / 1700
Review of Systems
-
History Source: Patient
All other systems: Not reviewed unless documented
Data Reviewed
-
Diagnostic Radiology: Report Reviewed by me
CT Scan: Image personally visualized and interpreted and Report Reviewed by me
Ultrasound: Report Reviewed by me
Labs: Labs Reviewed by me
[2024-03-17] MEDS: MANNITOL 25% 12.5 GRAMS IV (14:40)
[2024-03-17 15:11] VITALS: BP 122/54
--- NOTE | 2024-03-17 15:40 | CM ---
CM reviewed chart, patient for HD today. Awaiting family decision regarding goals of care. CM will continue to follow for all discharge planning needs.
Plan; awaiting family decision regarding [facility], patient LTC at [facility].
[2024-03-17 16:44] VITALS: BP 137/57
[2024-03-17 16:50] LABS: Glucose - Point of Care 103 mg/dl (70-99)
[2024-03-17] MEDS: NOVOLOG FLEXPEN-HIGH RESISTANCE 1 UNITS SC (17:03)
[2024-03-17 18:37] LABS: Hepatitis B Surface Antigen Negative (Negative)
[2024-03-17] MEDS: DAKIN'S SOLUTION 0.125% 1/4 STRENGTH 1 ML TOPICAL (20:09)
[2024-03-17 23:00] VITALS: BP 127/51
[2024-03-18 00:16] LABS: Glucose - Point of Care 229 mg/dl (70-99)
[2024-03-18] MEDS: NOVOLOG FLEXPEN 5 UNITS SC ×3 (00:16→12:16)
[2024-03-18] MEDS: NOVOLOG FLEXPEN-HIGH RESISTANCE 4 UNITS SC ×3 (00:16→12:17)
[2024-03-18] MEDS: APRESOLINE 75 MG TUBE ×3 (00:17→17:07)
[2024-03-18 05:41] VITALS: BMI 23.5
[2024-03-18 05:41] LABS: Glucose - Point of Care 205 mg/dl (70-99)
[2024-03-18 06:23] LABS: Hematocrit 24.4 % (37.0-47.0); Hemoglobin 8.2 g/dL (12.0-16.0); Mean Corp Hgb Conc. 33.6 g/dL (33.0-37.0); Mean Corpuscular Hgb 29.8 pg (27.0-31.0); Mean Corpuscular Volume 88.7 fL (81.0-99.0); Mean Platelet Volume 9.3 fL (7.4-10.4); Platelet Count 555 10^3/uL (130-400); Red Blood Cell Count 2.75 10^6/uL (4.20-5.40); Red Cell Dist. Width 17.5 % (11.5-14.5); White Blood Cell Count 17.8 10^3/uL (4.8-10.8)
[2024-03-18 06:53] LABS: ALT (SGPT) 20 U/L (0-35); AST (SGOT) 37 U/L (14-36); Albumin 3.1 g/dl (3.5-5.0); Alkaline Phosphatase 199 U/L (38-126); Blood Urea Nitrogen 61 mg/dl (7-17); Carbon Dioxide 29 mmol/L (22-30); Chloride 94 mmol/L (98-107); Estimated Creatinine Clearance 20 ml/min; Glucose 179 mg/dl (70-99); Phosphorus 2.2 mg/dl (2.5-4.5); Potassium 4.7 mmol/L (3.5-5.1); Sodium 135 mmol/L (135-145); Total Bilirubin 0.2 mg/dl (0.2-1.3); Total Protein 6.4 g/dl (6.3-8.2); eGFR 21.76
[2024-03-18 07:00] VITALS: BP 147/56
[2024-03-18] MEDS: NSS (PRESERVATIVE FREE) 10 ML IV (08:41)
[2024-03-18] MEDS: IMODIUM LIQUID 2 MG TUBE (08:41)
[2024-03-18] MEDS: FERROUS SULFATE ORAL LIQUID 300 MG TUBE (08:41)
[2024-03-18] MEDS: VIMPAT 100 MG TUBE (08:41)
[2024-03-18] MEDS: PROTONIX IV 40 MG IV (08:42)
[2024-03-18] MEDS: NORVASC 10 MG TUBE (08:42)
[2024-03-18] MEDS: COZAAR 100 MG TUBE (08:42)
[2024-03-18] MEDS: ELIQUIS 5 MG TUBE (08:42)
[2024-03-18] MEDS: LOW STRENGTH ASPIRIN 81 MG TUBE (08:42)
[2024-03-18] MEDS: DAKIN'S SOLUTION 0.125% 1/4 STRENGTH 1 ML TOPICAL (08:46)
--- NOTE | 2024-03-18 11:07 | W.PN.HOSP.TC ---
Addendum entered and electronically signed by Rohan Mancia MD 03/18/24 15:56:
[id number]
Addendum entered and electronically signed by Rohan Mancia MD 03/18/24 11:15:
Had extensive conversation with daughter today. Patient's daughter understands the critical level/seriousness of the patient's health. Patient is high risk for readmission although at this time remains hemodynamically stable for discharge with
close CBC, CMP. At this moment, remains off antibiotics, hemoglobin remained stable. No other further interventions and patient, and can follow-up closely outpatient with respective specialties. Patient understands high risk of readmission,
seriousness of her illness, and importance of discussion of hospice/palliative care.
Original Note:
Today's Communication/Plan
-
f/u cbc, cmp outpatient, iron and EPO
ppi bid x 8 weeks then daily
asa, eliquis - monitor hgb
imodium prn, can switch back to bid if no evidence of infection and continued loose stools
f/u surgery, gi, pcp, renphrology, cardiology outpatient
Assessment / Plan
Assessment / Plan
Physical Exam
General: No Apparent Distress, appears comfortable
HEENT: NormoCephalic, Moist mucous membranes and Atraumatic
Respiratory: Clear
Cardiac: S1/S2 and Regular Rhythm; no Murmur
GI: Soft, Non Tender, Non Distended and Normal Bowel Sounds; No Organomegaly
Musculoskeletal: No Clubbing, No Cyanosis and No Edema
Neuro: Responsive to verbal physical stimuli, remains largely nonverbal, rarely communicates via head gestures yes or no
# Acute on chronic anemia likely from upper GI bleed on anticoagulants v CKD
-Resumed Eliquis appears to be tolerating well.
-Hemoglobin 5.8 upon admission, transfused and responded well
-EPO as per Renal
-cont to monitor cbc - f/u outpatient
-maintain hgb >7
- EGD: Esophagitis, no bleeding, clean based ulcer
-Protonix 40 mg BID for 8 weeks followed by once daily.
-GI consult appreciated since signed off - f/u outpatient
-Colonoscopy 12/27/2023: No source of bleeding multiple polypectomies proximal ascending colon, sigmoid colon removed with snare, internal hemorrhoids all benign neoplasm
-restarted ASA 02/20 Eliquis 02/23 potentially may need to consider discontinuing one or the other if anemia continues to persistently worsens
-F/u GI outpatient
#Anemia persists likely 2/2 ESRD
#suspect anemia of chronic disease contributing
03/14 Hgb slow trend down to 7 received 4th transfusion of hospitalization with good response noted
Possible ASA Eliquis combination exacerbating anemia, consideration discontinuation as above if continued drop in hgb
-SPEP sent
Diarrhea likely 2/2 tube feeds
Cdiff neg
fecal management system in place to prevent contamination of decubitus wound
low dose imodium 2 mg daily started titrated up to BID
Some improvement noted however liquid diarrhea otherwise persists, consider increase imodium to TID if diarrhea continues (changed to prn upon dc and can consider placing on standing if continued need outpatient as long as no evidence of underlying
infection in the gut)
#Sepsis
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
#Proctitis
-sharp excisional debridement performed with cautery and scissors 02/18
-wound cultures growing E-Coli, Proteus Mirabilis, Morganella moranii, enterococcus faecalis
-completed 13 days iv Zosyn; wbc remains elevated suspected reactive as oppose to infectious as per ID, cont monitoring off abx at this time
�monitor Temp
-wound care consult appreciated
-ID consult appreciated
-Cdiff neg, blood culture neg
-no underlying abscess on CT imaging although possible proctitis
#Systolic Murmur possibly d/t Anemia vs artifact (patient grinding teeth during auscultation)
-Echo with no gross valvular abnormality, mild TR, mild concentric LVH, EF 65 to 70%
-murmur since resolved
#PEG displacement
� GI consulted, replaced PEG tube, okay to use
#Hyponatremia
-cont hd
#Hypokalemia
-monitor and replete
#Transaminitis
-most likely 2/2 to sepsis
-RUQ sono unremarkable
-Hep soler neg
# nodular parenchymal scarring suspected in the superior segment of the right lower lobe.
-Outpt follow-up CT in 1 year recommended
# History of CVA 2020
#bedbound for last 2 years per daughter
#Possible acute metabolic encephalopathy 2/2 infection as above, currently nonverbal, per daughter patient able to speak few words a few weeks ago
#Suspect underlying vascular dementia
-cont asa
-CT head appreciated no acute abn's, findings suggest possible NPH and severe small vessel ischemic disease.
-Difficult to correlate findings of possible NPH given patient has been bed bound for years, is anuric ESRD
-has had progressive cognitive decline since initial hospitalization November 2023 this year though this could be due to progressive vascular dementia as opposed to NPH
-outpt follow up with Neurology recommended
# Paroxysmal A-fib
-HR controlled
-cont Eliquis
# end-stage renal disease on dialysis
# Hyponatremia/hypokalemia/metabolic acidosis
-nephrology consult appreciated
# Type 2 diabetes
-sliding scale continued
-scheduled novolog 5U Q6H
-titrate insulin regimen as necessary.
#Dysphagia status post PEG tube
-All meds via PEG tube
-TF briefly held due to concerns GI bleed since resumed
-nutrition consult
HTN�benign multidrug-resistant
-Continue Norvasc 10 mg, clonidine transdermal patch, hydralazine 50 mg every 8h, losartan 100 mg
-CTM
#Hx CVA with immobility, dysphagia
#Seizure disorder
- hx EEG 01/04/24 no seizures
-Continue Vimpat 100 mg twice daily
-EEG repeating given AMS habitually grinding teeth, no sz activity noted
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
Keep head of bed raised to 30 degrees at all times
-May suction secretions
Hypophosphatemia
Hypokalemia
monitor and replete as necessary
#CAD prior NSTEMI,
#DVT prophylaxis
SCDs
#CODE STATUS:
-Full code
Art no longer involved in patient's care, stopped his involvement months ago as per daughter Marcela CHOPRA
03/11 discussed with daughter Marcela poor prognosis patient likely Hospice appropriate poor quality of life/functional status bedridden for years and significant cognitive decline, essentially nonverbal for past month or so. Also discussed, if not
Hospice, patient would likely benefit from Palliative care. Code status was also discussed. Patient unlikely to benefit from CPR or intubation if cardiac arrest should occur and would more likely lead to prolong suffering. Discussed potential
benefit in switching to DNR. All questions were answered, daughter reported she will consider and discuss with family.
So far no decisions have been made regarding above discussions/goals of care. again discussed prior to dc with no sold decisions
More than 30 minutes spent in discharge including
Final examination of the patient
Summarizing hospital stay
Instructions for continuing care to all relevant caregivers
Preparation of discharge records, prescriptions, and referral forms
Total time spent (45 in minutes):
Anticipated Discharge: Today
Subjective/Interval History
-
Date of Service: March 18, 2024
no acute events
Objective Data
-
Labs:
Laboratory Results
03/18/24
05:41
WBC 17.8 H
Hgb 8.2 L
Hct 24.4 L
Plt Count 555 H
Sodium 135
Potassium 4.7
Chloride 94 L
Carbon Dioxide 29
BUN 61 H
Creatinine 2.3 H
Glucose 179 H
Calcium 9.0
Total Bilirubin 0.2
AST 37 H
ALT 20
Alkaline Phosphatase 199 H
Vital Signs:
Vital Signs
Temp Pulse Resp BP Pulse Ox
99.1 F 68 18 147/56 99
03/18/24 07:00 03/18/24 07:00 03/18/24 07:00 03/18/24 08:42 03/18/24 07:00
I&O
03/17/24 03/18/24 03/19/24
06:59 06:59 06:59
Intake Total 1700 / 1700 1860 / 1860
Balance 1700 / 1700 1860 / 1860
Review of Systems
-
Unable to obtain full review of systems at this time due to: Acuity
History Source: Patient
Data Reviewed
-
Diagnostic Radiology: Report Reviewed by me
CT Scan: Image personally visualized and interpreted and Report Reviewed by me
Ultrasound: Report Reviewed by me
Labs: Labs Reviewed by me
--- NOTE | 2024-03-18 11:13 | W.DS.TRANS ---
DC Summary - Client Representative
-
Discharge Instructions:
Discharge Diagnosis/Procedures # Acute on chronic anemia likely from upper GI
bleed on anticoagulants v CKD
#Diarrhea likely 2/2 tube feeds
#Sepsis
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
necrotic tissue and exposed coccyx
#Proctitis
#PEG displacement
Diet Other diet
Additional Diets Nepro w/ Carb Steady - continuous goal rate 50cc
/hr
Activity As tolerated
Blood Work cbc, cmp in 2-3 days; please compare with values
seen inpatient; no source of infection has been
found with persistent leukocytosis.
Instructions:
Stand-Alone Forms:
Changes to Home Medications: Yes
Discharge Medications:
DC Medications w/original date entered in [facility]
amlodipine 10 mg tablet (Norvasc) 10 mg feeding tube DAILY Blood Pressure 12/27/23
aspirin 81 mg chewable tablet 81 mg feeding tube DAILY Blood Clot Prevention/Tx 12/27/23
atorvastatin 20 mg tablet (Lipitor) 20 mg feeding tube HS High Cholesterol 12/27/23
clonidine 0.1 mg/24 hr weekly transdermal patch 1 patch transdermal TH Blood Pressure 12/27/23
ferrous sulfate 300 mg (60 mg iron)/5 mL oral liquid 300 mg feeding tube DAILY Supplement 12/27/23
lacosamide 10 mg/mL oral solution (Vimpat) 100 mg feeding tube BID Seizures 12/27/23
melatonin 3 mg tablet 3 mg feeding tube HSPRN PRN SLEEP 12/27/23
apixaban 5 mg tablet (Eliquis) 5 mg feeding tube BID Blood Clot Prevention/Tx #1 tab 01/03/24
lansoprazole 30 mg delayed release,disintegrating tablet 30 mg feeding tube DAILY #1 tab 01/03/24
losartan 100 mg tablet 100 mg feeding tube DAILY #0 tabs 01/03/24
hydralazine 50 mg tablet 75 mg (1.5 x 50 mg) feeding tube Q8 #0 tabs 03/18/24
insulin aspart U-100 100 unit/mL (3 mL) subcutaneous pen 5 unit (0.05 mL) SC Q6 #0 mL 03/18/24
loperamide 1 mg/7.5 mL oral liquid 2 mg (15 mL) feeding tube BID PRN loose stool #450 mL 03/18/24
pantoprazole 40 mg granules delayed-release for susp in packet (Protonix) 40 mg PO BID #30 ea 03/18/24
sodium hypochlorite 0.125 % solution (Dakin's Solution) 1 applic topical BID #473 mL 03/18/24
Home Medication Changes
hydralazine 50 mg tablet 75 mg (1.5 x 50 mg) feeding tube Q8 #0 tabs 03/18/24
insulin aspart U-100 100 unit/mL (3 mL) subcutaneous pen 5 unit (0.05 mL) SC Q6 #0 mL 03/18/24
loperamide 1 mg/7.5 mL oral liquid 2 mg (15 mL) feeding tube BID PRN loose stool #450 mL 03/18/24
pantoprazole 40 mg granules delayed-release for susp in packet (Protonix) 40 mg PO BID #30 ea 03/18/24
sodium hypochlorite 0.125 % solution (Dakin's Solution) 1 applic topical BID #473 mL 03/18/24
Pending Results: No
--- NOTE | 2024-03-18 11:46 | W.PN.NEPH.PH ---
Today's Communication / Plan
-
dc
Assessment/Plan
-
Assessment:
ESRD on HD tunneled dialysis catheter, [facility]
Acute on chronic anemia likely from upper GI bleed on anticoagulants
Infected sacral decub wound
leucocytosis
Paroxysmal A-fib
Type 2 diabetes with hyperglycemia
Elevated transaminase
Dysphagia status post PEG tube
HTN�benign multidrug-
Hx CVA with immobility, dysphagia
Seizure disorder
Dementia�severe
CAD prior NSTEMI
Hyponatremia
Plan:
follow Hgb
transfuse as needed
HD tomorrow at OP unit
high dose LAURA with HD
bp stable, monitor with meds
tolerating TF
dc
-
-
Date of Service: March 18, 2024
CC / HPI / ROS
-
Chief Complaint:
ESRD
History of Present Illness:
hgb 8.2 stable
WBC p at 16k, no fever
completed abx
BP stable
toelrated HD yesterday
Review of Systems:
non verbal, on RA
Labs
-
Labs:
WBC 17.8 10^3/uL (4.8-10.8) H 03/18/24 05:41
RBC 2.75 10^6/uL (4.20-5.40) L 03/18/24 05:41
Hgb 8.2 g/dL (12.0-16.0) L 03/18/24 05:41
Hct 24.4 % (37.0-47.0) L 03/18/24 05:41
Plt Count 555 10^3/uL (130-400) H 03/18/24 05:41
Sodium 135 mmol/L (135-145) 03/18/24 05:41
Potassium 4.7 mmol/L (3.5-5.1) 03/18/24 05:41
Chloride 94 mmol/L (98-107) L 03/18/24 05:41
Carbon Dioxide 29 mmol/L (22-30) 03/18/24 05:41
BUN 61 mg/dl (7-17) H 03/18/24 05:41
Creatinine 2.3 mg/dL (0.6-1.0) H 03/18/24 05:41
eGFR 21.76 03/18/24 05:41
Glucose 179 mg/dl (70-99) H 03/18/24 05:41
Calcium 9.0 mg/dl (8.4-10.2) 03/18/24 05:41
Phosphorus 2.2 mg/dl (2.5-4.5) L 03/18/24 05:41
Albumin 3.1 g/dl (3.5-5.0) L 03/18/24 05:41
Physical Exam
-
Vital Signs:
Vital Signs
Temp Pulse Resp BP Pulse Ox
99.1 F 68 18 147/56 99
03/18/24 07:00 03/18/24 07:00 03/18/24 07:00 03/18/24 08:42 03/18/24 07:00
Cardiovascular:: Regular rate and rhythm
Respiratory:: Bilateral: CTA
Lung Excursion:: Normal
Abdomen:: Nontender and Soft
Bowel Sounds:: Normal
Extremity Edema:: None: Bilateral:
[2024-03-18 12:16] LABS: Glucose - Point of Care 221 mg/dl (70-99)
--- NOTE | 2024-03-18 12:26 | CM ---
Addendum entered by Adriana Schreiber 03/18/24 15:42:
Transport time changed to 6:00 p.m.
Addendum entered by Adriana Schreiber 03/18/24 14:42:
[facility]:
Report: [phone]

Original Note:
Patient seen bedside with daughter and son, discussed plan for discharge today. Daughter inquiring about patients hemoglobin, inquiring if patient is stable for discharge, relayed family concerns to nursing. CM spoke with Josefina, liaison at [facility], able to accept patient return to [facility], updated clinicals placed in [facility]. CM reviewed IMM with daughter, discussed right to appeal discharge, daughter not comfortable signing form at this time. CM will continue to follow for all
discharge planning needs.
Plan; return to [facility], 4:00 p.m. ambulance transport.
[2024-03-18 15:00] VITALS: BP 169/56
--- NOTE | 2024-03-18 15:09 | PTCARENOTE ---
report given to nurse Ford on unit 4 at [facility]. VSS. Patient's wound to sacrum cleansed and dressing changed. patient preparing for d/c
--- NOTE | 2024-03-18 17:30 | PTCARENOTE ---
Fecal management system removed prior to pt returning to [facility]. Some bleeding noted at rectal area after removal. Pt cleansed and brief applied.
== END 2024-03-18 18:47 | DRG 853 ==
LOC: 4 WEST ACU 13:36
PROVIDERS: Internal Medicine; Registered Nurse; Specialist; ADMITTING PHYSICIAN Hospitalist; ATTENDING PHYSICIAN Internal Medicine; CONSULT PHYSICIAN Internal Medicine; CONSULT PHYSICIAN Internal Medicine Infectious Disease; EMERGENCY PHYSICIAN Student in an Organized Health Care Education/Training Program; FAMILY PHYSICIAN Internal Medicine; OTHER PHYSICIAN Surgery
PROC: 5A1D70Z Performance of Urinary Filtration, Intermittent, Less than 6 Hours Per Day (ICD-10-PCS; 2024-02-18)
PROC: 30243N1 Transfusion of Nonautologous Red Blood Cells into Central Vein, Percutaneous Approach (ICD-10-PCS; 2024-02-18)
PROC: 0JB90ZZ Excision of Buttock Subcutaneous Tissue and Fascia, Open Approach (ICD-10-PCS; 2024-02-19)
PROC: 0DJ08ZZ Inspection of Upper Intestinal Tract, Via Natural or Artificial Opening Endoscopic (ICD-10-PCS; 2024-02-19)
PROC: 0D20XUZ Change Feeding Device in Upper Intestinal Tract, External Approach (ICD-10-PCS; 2024-03-05)
PROC: 30233N1 Transfusion of Nonautologous Red Blood Cells into Peripheral Vein, Percutaneous Approach (ICD-10-PCS; 2024-03-14)
DX: A41.51 Sepsis due to Escherichia coli [E. coli] (principal); G93.41 Metabolic encephalopathy; K21.01 Gastro-esophageal reflux disease with esophagitis, with bleeding; L89.154 Pressure ulcer of sacral region, stage 4; N18.6 End stage renal disease; R53.2 Functional quadriplegia; I50.32 Chronic diastolic (congestive) heart failure; I13.2 Hypertensive heart and chronic kidney disease with heart failure and with stage 5 chronic kidney disease, or end stage renal disease; E87.1 Hypo-osmolality and hyponatremia; E87.20 Acidosis, unspecified; D62 Acute posthemorrhagic anemia; D68.32 Hemorrhagic disorder due to extrinsic circulating anticoagulants; I96 Gangrene, not elsewhere classified; T85.528A Displacement of other gastrointestinal prosthetic devices, implants and grafts, initial encounter; K94.23 Gastrostomy malfunction; R79.89 Other specified abnormal findings of blood chemistry; D50.9 Iron deficiency anemia, unspecified; E11.65 Type 2 diabetes mellitus with hyperglycemia; R13.10 Dysphagia, unspecified; F03.C0 Unspecified dementia, severe, without behavioral disturbance, psychotic disturbance, mood disturbance, and anxiety; G40.909 Epilepsy, unspecified, not intractable, without status epilepticus; I48.0 Paroxysmal atrial fibrillation; D63.1 Anemia in chronic kidney disease; E87.6 Hypokalemia; R74.01 Elevation of levels of liver transaminase levels; E11.22 Type 2 diabetes mellitus with diabetic chronic kidney disease; E78.00 Pure hypercholesterolemia, unspecified; I1A.0 Resistant hypertension; M81.0 Age-related osteoporosis without current pathological fracture; K29.80 Duodenitis without bleeding; K22.89 Other specified disease of esophagus; M51.369 Other intervertebral disc degeneration, lumbar region without mention of lumbar back pain or lower extremity pain; E83.39 Other disorders of phosphorus metabolism; I25.10 Atherosclerotic heart disease of native coronary artery without angina pectoris; K64.8 Other hemorrhoids; R19.7 Diarrhea, unspecified; Y84.8 Other medical procedures as the cause of abnormal reaction of the patient, or of later complication, without mention of misadventure at the time of the procedure; Y92.239 Unspecified place in hospital as the place of occurrence of the external cause; K62.89 Other specified diseases of anus and rectum; B96.4 Proteus (mirabilis) (morganii) as the cause of diseases classified elsewhere; B95.2 Enterococcus as the cause of diseases classified elsewhere; Z11.52 Encounter for screening for COVID-19; Z88.5 Allergy status to narcotic agent; Z91.048 Other nonmedicinal substance allergy status; Z79.82 Long term (current) use of aspirin; Z79.4 Long term (current) use of insulin; Z79.01 Long term (current) use of anticoagulants; I25.2 Old myocardial infarction; I69.320 Aphasia following cerebral infarction; Z86.718 Personal history of other venous thrombosis and embolism; Z86.0100 Personal history of colon polyps, unspecified; Z85.118 Personal history of other malignant neoplasm of bronchus and lung; Z74.01 Bed confinement status
CPT/HCPCS: 49465; 70450; 71045; 71260; 72170; 74177; 76700; 80048; 80053; 80202; 82607; 82728; 82746; 82962; 83010; 83036; 83540; 83550; 83605; 83615; 83735; 84100; 84155; 84165; 85014; 85018; 85025; 85027; 85610; 85730; 86705; 86706; 86709; 86803; 86850; 86900; 86901; 86920; 87040; 87045; 87046; 87070; 87075; 87077; 87147; 87186; 87205; 87324; 87340; 87427; 87449; 87811; 93306; 95816; 96365; 96375; 99291; G0257; P9016; P9047; Q5106; Q9967

== ENCOUNTER 2024-03-26 16:17 | Emergency (ER) | payer MEDICARE, BC, SELFPAY ==
[2024-03-26 16:22] VITALS: BP 125/51
[2024-03-26 16:25] VITALS: BMI 26.0
[2024-03-26 16:46] LABS: Hematocrit 25.4 % (37.0-47.0); Hemoglobin 8.7 g/dL (12.0-16.0); Mean Corp Hgb Conc. 34.3 g/dL (33.0-37.0); Mean Corpuscular Hgb 28.1 pg (27.0-31.0); Mean Corpuscular Volume 81.9 fL (81.0-99.0); Platelet Count 687 10^3/uL (130-400); Red Cell Dist. Width 16.3 % (11.5-14.5); White Blood Cell Count 17.8 10^3/uL (4.8-10.8)
--- NOTE | 2024-03-26 16:52 | ED.GENMED ---
History of Present Illness
General
Chief Complaint: Abnormal Lab Value
Source: patient, ambulance crew and [facility]
Exam Limitations: other (nonverbal)
Time Seen by Provider: 03/26/24 16:25
Nursing documentation reviewed up to this point in time: agreed with
History of Present Illness
History of Present Illness:
Patient with history of end-stage renal disease on hemodialysis (Sunday, Sunday, Sunday), presents to ED from [facility] after blood work drawn post dialysis session revealed elevated white blood cell count as well as decreased hemoglobin.
Patient at baseline is nonverbal, and does not offer any additional information. Of note, patient was admitted to the hospital and discharged back to [facility] 1 week ago, after being receiving treatment for anemia and worsening sacral wound.
Past History
Past History
ED Past Medical History: Arrthythmia (Atrial fibrillation), NIDDM, Renal failure, Seizures and Other (Dementia, dysphagia, G-tube, anemia)
Review of Systems
Review of Systems
Allergies reviewed?: Yes
Unable to obtain full review of systems at this time due to: non-verbal
All Other Systems: Not applicable
Phy Exam
Physical Exam
Physical Exam:
Physical Exam
General: no apparent distress, not acutely ill. afebrile
Head: nc/at.
Neck: supple.
Heart: s1/s2 regular rate and rhythm, no murmur. equal radial pulses.
Lungs: no acute respiratory distress. clear bilaterally
Abdomen: normal bowel sounds. no distention. large sacral wound noted with presence of 4x4 gauze and wound dressing without sig. purulent drainage.
Neuro: alert and awake. nonverbal.
Skin: no rash
Extremities: nonpitting edema
Course
Orders/Labs/Results
Orders:
Orders
03/26/24 16:31
IV Insert/Care/Rem.- Treatment PRN
03/26/24 16:34
Basic Metabolic Panel Urgent
Complete Blood Count/With Diff Urgent
Manual Differential Urgent
Abnormal Lab Results
03/26/24
16:34
WBC 17.8 H 10^3/uL
(4.8-10.8)
RBC 3.10 L 10^6/uL
(4.20-5.40)
Hgb 8.7 L g/dL
(12.0-16.0)
Hct 25.4 L %
(37.0-47.0)
RDW 16.3 H %
(11.5-14.5)
Plt Count 687 H 10^3/uL
(130-400)
Abs Neuts (Manual) 14.4 H 10^3/uL
(1.4-6.5)
Segmented Neutrophils 77 H %
(42-75)
Band Neutrophils 4 H %
(0-3)
Lymphocytes (Manual) 9 L %
(20-51)
Sodium 128 L mmol/L
(135-145)
Chloride 92 L mmol/L
(98-107)
BUN 28 H mg/dl
(7-17)
Creatinine 1.2 H mg/dL
(0.6-1.0)
Glucose 130 H mg/dl
(70-99)
03/26/24 16:34
03/26/24 16:34
Vital Signs
Initial and Last Documented VS:
Initial Vital Signs
Pulse Resp BP Pulse Ox
88 16 125/51 100
03/26/24 16:22 03/26/24 16:22 03/26/24 16:22 03/26/24 16:22
Last Documented Vital Signs
Temp Pulse Resp BP Pulse Ox
99.3 F 78 13 154/52 100
03/26/24 16:48 03/26/24 19:15 03/26/24 19:15 03/26/24 19:00 03/26/24 19:15
MDM/Problems Addressed
MDM/Problems Addressed:
Per paramedics, patient received full dialysis session today.
H&H noted, chronic anemia noted, similar to when patient was discharged to hospital on March 18.
Leukocytosis also noted, similar to when she left the hospital on March 18. When reviewing discharge summary, leukocytosis discussed and noted, of unknown cause, as she completed antibiotics as well as receiving wound debridement during
hospitalization. As such, at this time, I do not believe she is in need of acute treatment requiring hospitalization. Patient will be discharged back to [facility] for continual care. Hyponatremia, which has also occurred previously, to be
addressed during next dialysis session.
Discussed with patient's spouse, Mr. Nettles, via phone.
*Critical Care Note
Total Time (30-74mins, 75-104mins- exclusive of procedures): Not Applicable
ED Attending Note
-
Portions of this chart may have been created with voice recognition software.� Occasional wrong word or��sound alike� substitutions may have occurred due to the inherent limitations of voice recognition software.
Discharge Plan
Departure
Patient Disposition: [facility]/SNF
Date of Disposition: 03/26/24
Time of Disposition: 16:52
Condition: Fair
Discharge Problem:
Anemia, Sacral wound, Hyponatremia
Instructions: Normocytic Normochromic Anemia (DC), Wound Care ED
Prescriptions:
No Action
atorvastatin [Lipitor] 20 mg Tablet
20 mg feeding tube HS
clonidine 0.1 mg/24 hr Patch Weekly
1 patch TRANSDERMAL TH
amlodipine [Norvasc] 10 mg Tablet
10 mg feeding tube DAILY
ferrous sulfate 300 mg (60 mg iron)/5 mL Liquid
300 mg feeding tube DAILY
aspirin 81 mg Tablet,Chewable
81 mg feeding tube DAILY
lacosamide [Vimpat] 10 mg/mL Solution
100 mg feeding tube BID
losartan 100 mg Tablet
100 mg feeding tube DAILY Qty: 0 0RF
Eliquis 5 mg Tablet
5 mg feeding tube BID Qty: 1 0RF
Rx Instructions:
Resume 01/05/24PM
hydralazine 50 mg Tablet
75 mg feeding tube Q8 Qty: 0 0RF
insulin aspart U-100 100 unit/mL (3 mL) Insulin Pen
5 unit SC Q6 Qty: 0 0RF
acetaminophen 325 mg Tablet
650 mg FEEDING TUBE Q6HPRN PRN (Reason: mild pain/fever>100.4)
loperamide 1 mg/5 mL Liquid
2 mg feeding tube [id number] PRN (Reason: loose stools)
magnesium hydroxide [Milk of Magnesia] 400 mg/5 mL Suspension
30 ml FEEDING TUBE HSPRN PRN (Reason: if no bm x 3 days)
bisacodyl [Dulcolax (bisacodyl)] 10 mg Suppository
10 mg MD DAILYPRN PRN (Reason: if no results for MOM)
pantoprazole [Protonix] [address] for susp in packet
40 mg feeding tube BID
Referrals:
Earl Gloria I., DO [Family Provider] -
Activity Restrictions/Additional Instructions:
As discussed, you are being discharged back to nursing for continual care.
Interventions
Interventions:
*Risk Screen - Suicide Last Done: 03/26/24 16:26
*General Assessment Last Done: 03/26/24 16:26
*Neglect/Abuse Screening Last Done: 03/26/24 16:26
ED- Fall Risk Assessment Last Done: 03/26/24 16:31
*ED COVID-19 Vaccine History Last Done: 03/26/24 16:26
*Nursing Disposition Last Done: 03/26/24 19:34
Discharge Date and Time
Discharge Date/Time: 03/26/24 19:35
Print Language: CHINESE
[2024-03-26 16:55] LABS: Blood Urea Nitrogen 28 mg/dl (7-17); Carbon Dioxide 24 mmol/L (22-30); Chloride 92 mmol/L (98-107); Estimated Creatinine Clearance 37 ml/min; Glucose 130 mg/dl (70-99); Sodium 128 mmol/L (135-145)
[2024-03-26 17:00] VITALS: BP 144/55
[2024-03-26 18:00] VITALS: BP 154/50
[2024-03-26 18:24] LABS: Absolute Neutrophils -Man Diff 14.4 10^3/uL (1.4-6.5); Band Neutrophils 4 % (0-3); Eosinophils 1 % (0-6); Lymphocytes 9 % (20-51); Metamyelocytes 2 % (-); Monocytes 6 % (2-9); Myelocytes 1 % (-); Normal RBC Morphology No; Platelets Checked Yes; Segmented Neutrophils 77 % (42-75)
[2024-03-26 18:25] LABS: Anisocytosis 2+; Hypochromasia 3+; Microcytosis 3+; Target Cells 1+; Total Cells Counted 100
[2024-03-26 19:00] VITALS: BP 154/52
== END 2024-03-26 19:35 ==
LOC: EMR 16:17
PROVIDERS: EMERGENCY PHYSICIAN Emergency Medicine; FAMILY PHYSICIAN Internal Medicine
DX: D64.9 Anemia, unspecified (principal); S31.000A Unspecified open wound of lower back and pelvis without penetration into retroperitoneum, initial encounter; D72.829 Elevated white blood cell count, unspecified; X58.XXXA Exposure to other specified factors, initial encounter; E11.22 Type 2 diabetes mellitus with diabetic chronic kidney disease; N18.6 End stage renal disease; F03.90 Unspecified dementia, unspecified severity, without behavioral disturbance, psychotic disturbance, mood disturbance, and anxiety; E87.1 Hypo-osmolality and hyponatremia; I48.91 Unspecified atrial fibrillation; Z99.2 Dependence on renal dialysis
CPT/HCPCS: 99283; 80048; 85025

== ENCOUNTER 2024-03-28 21:39 | Inpatient (IN) | payer MEDICARE, BC, SELFPAY ==
[2024-03-28] VITALS (8 sets, daily range): BP systolic 115–142; BP diastolic 45–54
--- NOTE | 2024-03-28 17:29 | ED.GENMED ---
History of Present Illness
General
Chief Complaint: Abnormal Lab Value
Source: family and home care attendant
Exam Limitations: dementia
Time Seen by Provider: 03/28/24 16:57
Nursing documentation reviewed up to this point in time: agreed with
History of Present Illness
History of Present Illness:
73-year-old female presents emergency department due to white blood cell count of 17.8. She is nonverbal due to dementia. She has a history of a GI bleed.
Past History
Past History
ED Past Medical History: Arrthythmia (Atrial fibrillation), NIDDM, Renal failure, Seizures and Other (Dementia, dysphagia, G-tube, anemia)
ED Past Surgical History: Other (Gastrostomy tube, left upper chest dialysis port)
Review of Systems
Review of Systems
Unable to obtain full review of systems at this time due to: dementia
Phy Exam
Physical Exam
Physical Exam:
Physical Exam
General: Chronic ill appearance
Neck: supple. no meningeal signs. normal posterior pharynx
Heart: s1/s2 regular rate and rhythm, no murmur. equal radial
pulses. Dialysis port left upper chest
HEENT: Pupils equal round reactive to light, EOMI
Lungs: no acute respiratory distress. clear bilaterally
Abdomen: normal bowel sounds. not tender. no CVAT, gastrostomy tube, rectal: black stool, guaiac positive
Neuro: Awake, but nonverbal
Skin: Stage IV sacral decubitus ulcer
Psychiatric: well kept. interactive and cooperative
Extremities: no edema. no calf tenderness. negative homans. good distal pulses
Course
Orders/Labs/Results
Orders:
Orders
03/28/24 17:27
IV Insert/Care/Rem.- Treatment PRN
03/28/24 18:31
Complete Blood Count/With Diff Urgent
03/28/24 19:35
Type+Screen Urgent
BBK Wristband Number:
Comprehensive Metabolic Panel Urgent
03/28/24 20:31
Pantoprazole 80 mg/100 ml Nss [Protonix] 80 mg in 100 ml IV NOW
Pantoprazole [Protonix IV] 80 mg IV NOW STA
03/28/24 21:06
Add On- LAB Urgent
Tests Added?: tibc, ferritin, iron, folate b12
03/28/24 21:16
Admit/Transfer Patient As Directed
Co-Sign Provider:
Level of Care: Inpatient admission
Assign to:: Medical/Surgical
Physician / Group: shonna varma
Diagnosis: Chronic leukocytosis, melena with anemia concern upper GI bleed
Reason for Hospitalization: Chronic leukocytosis, melena with anemia concern upper GI bleed
Expected length of stay greater than two midnights?: Yes
ELOS- Estimated Length of Stay in days: 3
I certify the patient meets the requirements for IP care: Yes
Code Status As Directed
Resuscitation Status: Full Code
03/28/24 21:22
Ferritin Routine
Folate Routine
Iron Routine
Total Iron Binding Routine
Vitamin B12 Routine
PRN Pain Medication Management As Directed
May give lesser potent ordered pain med per pt: Yes
preference::
Protocol:: Medication orders for pain may be administered in a
manner that supports deferring to patient preference
when the pt is:
- Requesting an ordered lesser potent pain medication.
Least to most potent pain medications are defined
as: acetaminophen < NSAID < tramadol < opioids
(morphine, oxycodone, hydromorphone).
- Requesting a lesser dose of the same medication IF
ORDERED.
- Requesting a less intrusive route of administration
if both routes are prescribed by the provider (PO <
IV).
Abnormal Lab Results
10/18/24 10/18/24
18:31 19:35
WBC 19.5 H 10^3/uL
(4.8-10.8)
RBC 2.53 L 10^6/uL
(4.20-5.40)
Hgb 7.2 L g/dL
(12.0-16.0)
Hct 21.2 L %
(37.0-47.0)
RDW 16.6 H %
(11.5-14.5)
Plt Count 619 H 10^3/uL
(130-400)
Abs Immat Gran (auto) 1.0 H 10^3/uL
(0-0.05)
Absolute Neuts (auto) 14.9 H 10^3/uL
(1.4-6.5)
Absolute Monos (auto) 1.2 H 10^3/uL
(0.1-0.6)
Immature Gran % 5.2 H %
(0-0.5)
Neutrophils % 76.2 H %
(42.2-75.2)
Lymphocytes % 8.2 L %
(20.5-51.1)
BUN 25 H mg/dl
(7-17)
Creatinine 1.2 H mg/dL
(0.6-1.0)
Glucose 105 H mg/dl
(70-99)
AST 62 H U/L
(14-36)
ALT 42 H U/L
(0-35)
Alkaline Phosphatase 217 H U/L
(38-126)
Albumin 3.0 L g/dl
(3.5-5.0)
03/28/24 18:31
03/28/24 19:35
Vital Signs
Initial and Last Documented VS:
Initial Vital Signs
Pulse Resp Pulse Ox
76 11 99
03/28/24 15:59 03/28/24 15:59 03/28/24 15:59
Last Documented Vital Signs
Temp Pulse Resp BP Pulse Ox
98.4 F 76 17 115/47 100
03/28/24 17:00 03/28/24 18:31 03/28/24 18:31 03/28/24 18:31 03/28/24 17:00
MDM/Problems Addressed
Differential Diagnosis Includes:
GI bleeding
MDM/Problems Addressed:
73-year-old female with GI bleed, chronic renal failure, poorly hearing sacral ulcer.
Chronic conditions affecting care: Kidney disease and Other (Chronic sacral ulcer)
Acute Exacerbation and/or Progression of Chronic Illness: Kidney disease and Other (Chronic sacral ulcer)
*Pulse Oximetry
Patient hypoxic: no
*Critical Care Note
Total Time (30-74mins, 75-104mins- exclusive of procedures): Not Applicable
Data Reviewed
Review of Other/Old Records Reveals: Progress Notes (Patient seen by infectious disease, nephrology, general surgery. [employer] patient's very poor prognosis)
Source: family (Discussed with family, who despite patient's poor quality of life, wish to continue care and not pursue hospice.)
Patient Management
Social determinants of health affecting care: Living situation
Discussion with other providers: Hospitalist
Escalation/DeEscalation of care consider admission/obs:
Admit indicated
ED Attending Note
-
Portions of this chart may have been created with voice recognition software.� Occasional wrong word or��sound alike� substitutions may have occurred due to the inherent limitations of voice recognition software.
Discharge Plan
Departure
Patient Disposition: Admit
Date of Disposition: 03/28/24
Time of Disposition: 20:29
Admit to: Med/Surg
Presentation/result/management discussed w/ accepting MD/DO: Hospitalist
Patient with high blood pressure during this ER visit?: Yes
Condition: Fair
Discharge Problem:
UGIB (upper gastrointestinal bleed), Sacral decubitus ulcer, ESRD (end stage renal disease), Left hemiparesis, History of CVA (cerebrovascular accident)
Interventions
Interventions:
*Risk Screen - Suicide Last Done: 03/28/24 16:00
*General Assessment Last Done: 03/28/24 16:00
*Neglect/Abuse Screening Last Done: 03/28/24 16:00
*ED COVID-19 Vaccine History Last Done: 03/28/24 16:07
[2024-03-28 18:54] LABS: Hematocrit 21.2 % (37.0-47.0); Hemoglobin 7.2 g/dL (12.0-16.0); Mean Corpuscular Hgb 28.5 pg (27.0-31.0); Mean Corpuscular Volume 83.8 fL (81.0-99.0); Mean Platelet Volume 8.6 fL (7.4-10.4); Platelet Count 619 10^3/uL (130-400); Red Blood Cell Count 2.53 10^6/uL (4.20-5.40); Red Cell Dist. Width 16.6 % (11.5-14.5); White Blood Cell Count 19.5 10^3/uL (4.8-10.8)
[2024-03-28 19:10] LABS: % Basophils 0.7 % (0-2); % Eosinophils 3.7 % (0-6); % Immature Granulocytes 5.2 % (0-0.5); % Lymphocytes 8.2 % (20.5-51.1); % Neutrophils 76.2 % (42.2-75.2); Absolute Basophils 0.1 10^3/uL (0-0.2); Absolute Eosinophils 0.7 10^3/uL (0-0.7); Absolute Lymphocytes 1.6 10^3/uL (1.2-3.4); Absolute Monocytes 1.2 10^3/uL (0.1-0.6); Absolute Neutrophils 14.9 10^3/uL (1.4-6.5); Nucleated Red Blood Cells % 0 %
[2024-03-28 20:08] LABS: ALT (SGPT) 42 U/L (0-35); AST (SGOT) 62 U/L (14-36); Alkaline Phosphatase 217 U/L (38-126); Blood Urea Nitrogen 25 mg/dl (7-17); Carbon Dioxide 23 mmol/L (22-30); Chloride 102 mmol/L (98-107); Estimated Creatinine Clearance 40 ml/min; Glucose 105 mg/dl (70-99); Potassium 4.3 mmol/L (3.5-5.1); Sodium 136 mmol/L (135-145); Total Bilirubin 0.3 mg/dl (0.2-1.3)
--- NOTE | 2024-03-28 20:40 | HPS.HSE ---
Family Physician
-
Family Physician: Earl Gloria
Chief Complaint
-
Leukocytosis
History of Present Illness
73-year-old female from [facility] sent for leukocytosis by Dr. Gloria and Dr. Valero. In the ER she was noted to have melena on her rectal exam per ER attending. Her leukocytosis seems to be chronic since February with
history of stage IV chronic sacral wound likely causative factor. She has some scant coffee grind emesis present in her PEG tube with hemoglobin of 7.2 near baseline 7.7�8.5. She is history of anemia of CKD. History of prior GI bleeds with no
visible source on EGD's. She is nonverbal due to prior stroke and grinds her teeth. She is unable to answer any review of systems. She is afebrile, does not appear to have chills and diaphoresis belly pain on palpation, no active vomiting
diarrhea cough rash. She has chronic edema to bilateral hands and legs due to chronic immobility.
She has past medical history ESRD on HD Sunday, chronic stage IV sacral wound, chronic dysphagia status post PEG tube,CVA chronic immobility moves left arm slightly, seizure disorder, dementia advanced, iron deficiency anemia, CAD
prior NSTEMI, DM2 with history of hyperglycemia, multidrug resistant hypertension, paroxysmal A-fib, DVT
Medical History
Past Medical History
Past Medical History: Reports Other
Additional Past Medical History:
Chronic stage IV sacral wound
Iron deficiency anemia
Hx anemia with GI bleeds negative EGDs close February 2024
GERD
Seizures
CVA with chronic dysphagia, nonverbal, contractures arms legs chronic edema arms and legs
Dysphagia with chronic PEG tube secondary to CVA
Chronic diastolic CHF
End-stage renal disease dialysis Sunday
Type 2 diabetes
Hyperlipidemia
Dementia severe
Hyponatremia
PAF
Essential hypertension
Past Surgical History: Reports Other
Social History
Unable to obtain full social history at this time due to: Dementia
Alcohol: None
Drug: None
Living: Retirement ([place])
Family History
Family History: Not pertinent
Allergies / Home Medications
Allergies reflects when Allergies were last updated in [employer].
Home Medications with original date entered in [employer]
Allergy/Medication List:
Allergies
Allergy/AdvReac Type Severity Reaction Status Date / Time
adhesive tape Allergy Unknown Verified 03/28/24 16:10
codeine Allergy Unknown Verified 03/28/24 16:10
oxycodone Allergy Unknown Verified 03/28/24 16:10
tramadol Allergy Unknown Verified 03/28/24 16:10
Home Medications
amlodipine 10 mg tablet (Norvasc) 10 mg feeding tube DAILY Blood Pressure 12/27/23
aspirin 81 mg chewable tablet 81 mg feeding tube DAILY Blood Clot Prevention/Tx 12/27/23
atorvastatin 20 mg tablet (Lipitor) 20 mg feeding tube HS High Cholesterol 12/27/23
clonidine 0.1 mg/24 hr weekly transdermal patch 1 patch transdermal TH Blood Pressure 12/27/23
lacosamide 10 mg/mL oral solution (Vimpat) 100 mg feeding tube BID Seizures 12/27/23
apixaban 5 mg tablet (Eliquis) 5 mg feeding tube BID Blood Clot Prevention/Tx #1 tab 01/03/24
losartan 100 mg tablet 100 mg feeding tube DAILY #0 tabs 01/03/24
acetaminophen 325 mg tablet 650 mg feeding tube Q6HPRN PRN mild pain/fever>100.4 03/26/24
bisacodyl 10 mg rectal suppository (Dulcolax (bisacodyl)) 10 mg CA DAILYPRN PRN if no results for MOM 03/26/24
loperamide 1 mg/5 mL oral liquid 2 mg feeding tube [id number] PRN loose stools 03/26/24
magnesium hydroxide 400 mg/5 mL oral suspension (Milk of Magnesia) 30 ml feeding tube [id number] PRN if no bm x 3 days 10/16/24
pantoprazole 40 mg granules delayed-release for susp in packet (Protonix) 40 mg feeding tube BID 03/26/24
hydralazine 50 mg tablet 75 mg feeding tube Q8H 03/28/24
insulin aspart U-100 100 unit/mL (3 mL) subcutaneous pen 5 unit SC Q6H 03/28/24
Review of Systems
-
History Source: Retirement ([facility])
A 12 point ROS was completed and negative except as noted: Yes
Constitutional: Denies Chills
EENT: Denies Runny Nose
Respiratory: Denies Cough or Trouble Breathing
Cardiac: Denies Diaphoresis or Syncope
Abdomen/GI: Reports Black Stools (On ER exam); Denies Abdominal Pain, Vomiting, Diarrhea, Constipated or Bloody Stools
: Reports Incontinence (Chronic urinary)
Musculoskeletal: Reports Edema (Chronic plus 1 bilateral hands and bilateral legs due to contracture and immobility)
Skin: Denies Rash
Psych: Reports Calm
Physical Exam
Vital Signs
Vital Signs
Temp Pulse Resp BP Pulse Ox
98.4 F 76 17 115/47 100
03/28/24 17:00 03/28/24 18:31 03/28/24 18:31 03/28/24 18:31 03/28/24 17:00
Physical Exam
General: Other (Chronic nonverbal secondary to CVA)
HEENT: NormoCephalic, Anicteric, PERRLA, No Ptosis and Other (Grinds teeth constantly while at rest)
Respiratory: Clear; No Wheezes, Rales or Rhonchi
Cardiac: S1/S2, Regular Rhythm, Murmur (3/6 systolic) and Peripheral Edema (Chronic plus 1 bilateral hands and bilateral legs due to contracture and immobility); No Rub or Gallop
Breast: Deferred by me
GI: Soft, Non Tender, Non Distended, Normal Bowel Sounds, No Hepatosplenomegaly and Peg Tube (Scant coffee-ground liquid in G-tube)
Rectal: Hem Positive (Melena on ER exam)
Genito-urinary: Deferred by me
Musculoskeletal: No Clubbing, No Cyanosis, Edema, Left Upper Extremity (Chronic +1 due to immobility and contractures), Edema, Right Upper Extremity (Chronic +1 due to immobility and contractures), Edema, Left Lower Extremity (Chronic +1 due to
immobility and contractures) and Edema, Right Lower Extremity (Chronic +1 due to immobility and contractures)
Skin: Warm, Dry and Decubitus Ulcers (Stage IV sacral decub)
Neuro: Other (Chronic nonverbal secondary to CVA, unable to follow commands answer review of systems, chronic contractures bilateral hands and legs with chronic +1 edema grinds teeth at baseline can track with eyes)
Psych: Calm
Laboratory Results
-
03/28/24 18:31
03/28/24 19:35
Laboratory Results
Total Bilirubin 0.3 mg/dl (0.2-1.3) 03/28/24 19:35
AST 62 U/L (14-36) H 03/28/24 19:35
ALT 42 U/L (0-35) H 03/28/24 19:35
Alkaline Phosphatase 217 U/L (38-126) H 03/28/24 19:35
Impression/Plan
-
Impression/plan:
Admit to telemetry
#Upper GI bleed on Eliquis
Anemia of chronic kidney disease
-Melena on rectal exam per ER, scant coffee grind present in PEG tube
Hgb 7.2,(baseline appears to be 7.7�8.5 type and screen, obtain blood consent
-Check iron studies, B12, folate
-Consult GI
-IV PPI drip-was on prior Protonix 40 mg twice daily via G-tube
-HOLD Eliquis
-Follow CBC, BMP
EGD March 04: Esophagitis
EGD 12/31/2023: Unremarkable without source of bleeding
Colonoscopy 12/27/2023: No source of bleeding multiple polypectomies proximal ascending colon, sigmoid colon removed with snare, internal hemorrhoids all benign neoplasm
#Chronic leukocytosis�unclear possibly due to chronic sacral wound
WBC 19.5 prior 14.2�49.8 from January 2024 to present
-Follow CBC
# Chronic large stage IV sacral wound with purulence, necrotic tissue and
exposed coccyx.
-Consult wound care
#ESRD on HD MOWE
Left IJ permacath
Creat 1.2
-if here sunday -Consult Nephrology
-Follow BMP
#Chronic diarrhea from PEG tube tube feeds
#Dysphagia status post PEG tube
PEG tube was replaced due to displacement on March 2020 for admission
-All meds via PEG tube
N.p.o. due to upper GI bleed
-Prior tube feeds
Patient uses Nepro 1.8 at 55 mL an hour up at 1400 down at 09 100-(may resume when okay by GI)
#Paroxysmal A-fib
-Hold Eliquis 5 mg twice daily
#HTN�benign multidrug-resistant
BP 115/47
-Hold Norvasc 10 mg, clonidine transdermal patch, hydralazine 75 mg every 8h, losartan 100 mg
-cont clonidine 0.1 mg transdermal patch on
#Hx CVA with immobility, dysphagia
#Seizure disorder
hx EEG 01/04/24 no seizures
-Continue Vimpat 100 mg twice daily
#Dementia�severe/nonverbal due to stroke
Keep head of bed raised to 30 degrees at all times
-May suction secretions
#CAD prior NSTEMI
HOLD aspirin 81 mg daily, BP control,
#DM 2 with history of episodes of hypoglycemia in past
-Accu-Cheks with SSI low
Lantus was discontinued on recent admission December
DVT prophylaxis
SCDs
Full code
--- NOTE | 2024-03-28 21:48 | W.PN.UPDATE ---
Update Note
Progress Note Update
This is an addendum to the H&P written by Mariluz Marquez on 03/28/2024. Patient seen and examined independently with [employer].
73-year-old female past medical history of ESRD on hemodialysis Sunday, Sunday, Sunday, severe dementia, paroxysmal atrial fibrillation on Eliquis, CVA with dysphagia with PEG tube, seizure disorder, diabetes, CAD, hypertension presenting from
[facility] physician for leukocytosis.
Leukocytosis is chronic. In the ER patient was found to have coffee ground material within the PEG tube as well as melena on rectal examination although no active bleeding. Labs show leukocytosis at 19.5 which is around patient's baseline.
Hemoglobin 7.2 which is also around baseline. Patient is usually transfused for hemoglobin under 7.
As per ER physician daughters would want full workup and care for the patient.
NPO. Protonix drip. Hold aspirin and Eliquis. Hold antihypertensive medications for now. Check iron studies, B12 and folate. GI consulted.
[2024-03-28] MEDS: PROTONIX IV 80 MG IV (22:06)
[2024-03-28] MEDS: PROTONIX 100 IV (22:20)
[2024-03-29] VITALS: BP 114/45
[2024-03-29 00:55] VITALS: BP 153/50; BMI 28.0
[2024-03-29] MEDS: LIPITOR 20 MG TUBE ×2 (01:12→22:28)
[2024-03-29 02:02] VITALS: BMI 28.0
[2024-03-29 06:00] VITALS: BMI 28.4
--- NOTE | 2024-03-29 06:30 | CON.GI ---
Addendum entered and electronically signed by Misty Roque MD 03/29/24 08:24:
I saw and examined the patient.
The SHERIFF'S SERGEANT or PA's note was reviewed and I agree with the note.
Comment:
Pt is a 73 y/o woman with a hx of a CVA, aphasia, dysphagia, PEG tube, ESRD on eliquis, sacral decubitus admitted leukocytosis with coffee grounds with clear tube now. She also has a hx of esophagitis and gastric ulcer seen on prior EGD
abd: clean, no erythema at site
impression
coffee grounds
esophagitis/
plan:
- PPI IV bid
- follow hgb
- EGD if active bleeding but would hold for now
- tube in place
Original Note:
Consultation
-
Date/Time Consultation Requested: 03/28/242229
Date/Time Consultation Performed: 03/28/24 0645
Requesting Provider: BHUPINDER Tamyao
Performing Provider: BHUPINDER Alexander, Misty Roque MD
Reason for Consultation: GI bleed
Medical History
Chief Complaint / HPI
Chief Complaint: abnormal labs
History of Present Illness:
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
sacral wound. In December she was noted with anemia with hbg 5.9. She completed EGD with normal esophagus, peg and normal duodenum. Colon with multiple TA polyps, and hemorrhoids with stool in entire colon. She returned last admission 02/17-03/18 she
was noted with hbg 5.8 but also marked leukocytosis and dark heme + stools. Repeat EGD with noted grade A esophagitis, intact peg with small clean based ulcer at base of peg bumper and duodenitis with normal duodenum. she was recommended goals of
care in continuing anticoagulation. Anemia was also thought to be multifactorial with CKD and large sacral wound. CT in February also note proctitis. She now returns with elevated WBC but noted with some coffee ground in peg tube and black heme
+ stools.
Pt nonverbal unable to give review of systemsCurrent hbg 8.7 on 03/26 then 03/28 7.2 repeat today pending.
Past Medical History
Past Medical History: Arrhythmias (afib ), CAD, CVA, HTN, NIDDM, [place], Renal Failure (on HD), Seizures and Other (dementia, dysphagia, G tube, anemia, DVT on eliquis, sacral decub, gastric ulcer 02/19 EGD, TA polyps, proctitis on prior CT)
Past Surgical History: Other (PEG tube )
Social History
Tobacco: Non-Smoker (unable to obtain-- per chart )
Alcohol: None (unable to obtain- none per chart )
Drug: None (per chart )
Living: Detention
Family History
Family History: Unable to Obtain
Allergies / Home Medications
Allergy/AdvReac Type Severity Reaction Status Date / Time
adhesive tape Allergy Unknown Verified 03/28/24 16:10
codeine Allergy Unknown Verified 03/28/24 16:10
oxycodone Allergy Unknown Verified 03/28/24 16:10
tramadol Allergy Unknown Verified 03/28/24 16:10
�Medication �Instructions �Recorded
amlodipine 10 mg tablet (Norvasc) 10 mg feeding tube DAILY Blood 12/27/23
Pressure
aspirin 81 mg chewable tablet 81 mg feeding tube DAILY Blood 12/27/23
Clot Prevention/Tx
atorvastatin 20 mg tablet (Lipitor) 20 mg feeding tube HS High 12/27/23
Cholesterol
clonidine 0.1 mg/24 hr weekly 1 patch transdermal TH Blood 12/27/23
transdermal patch Pressure
lacosamide 10 mg/mL oral solution 100 mg feeding tube BID Seizures 12/27/23
(Vimpat)
apixaban 5 mg tablet (Eliquis) 5 mg feeding tube BID Blood Clot 01/03/24
Prevention/Tx #1 tab
losartan 100 mg tablet 100 mg feeding tube DAILY #0 tabs 01/03/24
acetaminophen 325 mg tablet 650 mg feeding tube Q6HPRN PRN 03/26/24
mild pain/fever>100.4
bisacodyl 10 mg rectal suppository 10 mg [place] DAILYPRN PRN if no 03/26/24
(Dulcolax (bisacodyl)) results for MOM
loperamide 1 mg/5 mL oral liquid 2 mg feeding tube [id number] PRN 03/26/24
loose stools
magnesium hydroxide 400 mg/5 mL 30 ml feeding tube [id number] PRN if 03/26/24
oral suspension (Milk of Magnesia) no bm x 3 days
pantoprazole 40 mg granules 40 mg feeding tube BID 03/26/24
delayed-release for susp in packet
(Protonix)
hydralazine 50 mg tablet 75 mg feeding tube Q8H 03/28/24
insulin aspart U-100 100 unit/mL 5 unit SC Q6H 03/28/24
(3 mL) subcutaneous pen
Review of Systems
-
Unable to obtain full review of systems at this time due to: Patient Non Verbal
History Source: Other (chart/nursing staff )
Abdomen/GI: Reports Other (dark stool per ER staff )
Neurological: Reports Other (non verbal )
Vital Signs
Temp Pulse Resp BP Pulse Ox
99.6 F 84 18 153/50 100
03/29/24 00:55 03/29/24 00:55 03/29/24 00:55 03/29/24 00:55 03/29/24 02:56
Physical Exam
Exam
General: Other (chronically ill appearing, non verbal on exam )
HEENT: Normocephalic, Anicteric and Moist Mucous Membranes
Respiratory: Clear
Cardiac: Regular Rhythm
GI: Soft, Non Tender, Non Distended and Other (peg intact with good placement at 7 end of bumper with prior 6-8 per records, no buried bumper. no redness, swelling or pain, clear on return of irrigation)
Rectal: Hem Positive (dark in ER)
Musculoskeletal: No Clubbing and No Cyanosis
Skin: Warm and Dry
Neuro: Other (non verbal minimal eye opening to stimuli)
Psych: Calm
Results
WBC 19.5 10^3/uL (4.8-10.8) H 03/28/24 18:31
Hgb 7.2 g/dL (12.0-16.0) L 03/28/24 18:
Hct 21.2 % (37.0-47.0) L 03/28/24 18:31
MCV 83.8 fL (81.0-99.0) 03/28/24 18:
Plt Count 619 10^3/uL (130-400) H 03/28/24 18:31
Absolute Neuts (auto) 14.9 10^3/uL (1.4-6.5) H 03/28/24 18:31
Sodium 136 mmol/L (135-145) D 03/28/24 19:35
Potassium 4.3 mmol/L (3.5-5.1) 03/28/24 19:35
Chloride 102 mmol/L (98-107) 03/28/24 19:35
Carbon Dioxide 23 mmol/L (22-30) 03/28/24 19:35
BUN 25 mg/dl (7-17) H 03/28/24 19:35
Creatinine 1.2 mg/dL (0.6-1.0) H 03/28/24 19:35
Calcium 9.0 mg/dl (8.4-10.2) 03/28/24 19:35
Total Bilirubin 0.3 mg/dl (0.2-1.3) 03/28/24 19:35
AST 62 U/L (14-36) H 03/28/24 19:35
ALT 42 U/L (0-35) H 03/28/24 19:35
Alkaline Phosphatase 217 U/L (38-126) H 03/28/24 19:35
Diagnostic Image Results:
02/20/2024 CT chest/abd/pelvis
1. Absent left thyroid lobe. Asymmetric mild enlargement right lobe with low-attenuation nodules. Comparison with any prior outside examination not available at this facility would be recommended.
2. No evidence of pneumonia. Findings most likely reflecting parenchymal scarring, as described. Slightly more nodular parenchymal scarring suspected in the superior segment of the right lower lobe. Consider follow-up in one year if the patient is
at increased risk.
3. No acute inflammatory process within the abdomen.
4. Findings suspicious for proctitis. Clinical correlation recommended. Minor diverticulosis without acute diverticulitis. Mild colonic fecal burden.
5. No obstructive uropathy. Renal cortical atrophy. Tiny renal cysts.
6. Third spacing.
7. No CT evidence to suggest discitis or osteomyelitis.
Prior GI Procedures:
02/19/24 Rodriguez - LA Grade A esophagitis with no bleeding.
- Z-line variable.
- Gastrostomy present. Inflammatory tissue at base
with small, clean-based ulcer at base of peg bumper
- Duodenitis.
- Normal examined jejunum.
- No specimens collected.
12/2023- EGD donato
The esophagus was normal.
The PEG was found in the gastric body.
The examined duodenum was normal.
colon 12/2023 Jaylene
- Preparation of the colon was inadequate.
- The examined portion of the ileum was normal.
- One 18 mm polyp in the proximal ascending colon,
removed with a hot snare and removed piecemeal using a
cold snare. Resected and retrieved. Clip was placed.
Clip patcher: [employer].
- One 3 mm polyp in the ascending colon, removed with
a hot snare. Resected and retrieved.
- One 10 mm polyp in the sigmoid colon, removed with a
hot snare. Complete resection. Polyp tissue not
retrieved. Clip was placed. Clip patcher: [employer].
- Stool in the entire examined colon. No bleeding
- Internal hemorrhoids.
bx TA polyps
Assessment / Plan
-
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
sacral wound. In December she was noted with anemia with hbg 5.9. She completed EGD with normal esophagus, peg and normal duodenum. Colon with multiple TA polyps, and hemorrhoids with stool in entire colon. She returned last admission 02/17-03/18 she
was noted with hbg 5.8 but also marked leukocytosis and dark heme + stools. Repeat EGD with noted grade A esophagitis, intact peg with small clean based ulcer at base of peg bumper and duodenitis with normal duodenum. she was recommended goals of
care in continuing anticoagulation. Anemia was also thought to be multifactorial with CKD and large sacral wound. CT in February also note proctitis. She now returns with elevated WBC but noted with some coffee ground in peg tube and black heme
+ stools.
-coffee ground in peg/melena
-recently noted grade A esophagitis and clean based gastric ulcer at base of peg bumper
-dysphagia with chronic peg
-proctitis noted on prior CT in February
-anemia with hx chronic anemia multi factoral
-hx recent sepsis with large necrotic sacral wound
-chronic diarrhea
-leukocytosis with some chronic elevation
-DVT/PAF on Eliquis
other medical problems:
-CVA with chronic aphasia
-dementia
-ESRD on HD
-CAD with prior STEMI
-HTN
-DM
-sacral decub
-seizure d/o
PLAN:
Etiology of bleeding related to prior noted gastric ulcer at base of peg vs other
currently no signs of bleeding -- no stools overnight and clear return of peg irrigation
will resume slow tube feeds
transition to PPI IV BID and continue via peg BID x 4 week then daily on discharge with hx gastric ulcer in February
hx chronic anemia -- multifactorial with GI bleed, ESRD, sacral wound etc
trend hbg transfuse as needed-- pt has required 8 units PRBC's since December
if signs of active bleeding consider repeat EGD but hold for now, recent colon completed in December
Eliquis hold-- consider goals of care of continuing therapy with recurrent anemia-vs if no bleeding resume with close monitoring
if recurrent coffee ground or vomiting check abd X ray for stool burden with hx proctitis
-
-
Thank you for consultation and allowing me to participate in the patient's care. Please call the interface control officer GI physician during the after hours with any questions or concerns.
[2024-03-29 07:05] VITALS: BP 128/56
[2024-03-29 09:19] LABS: % Basophils 0.9 % (0-2); % Eosinophils 5.1 % (0-6); % Immature Granulocytes 4.7 % (0-0.5); % Lymphocytes 16.5 % (20.5-51.1); % Monocytes 8.4 % (1.7-9.3); % Neutrophils 64.4 % (42.2-75.2); Absolute Basophils 0.2 10^3/uL (0-0.2); Absolute Eosinophils 0.8 10^3/uL (0-0.7); Absolute Immature Granulocytes 0.8 10^3/uL (0-0.05); Absolute Lymphocytes 2.6 10^3/uL (1.2-3.4); Absolute Monocytes 1.3 10^3/uL (0.1-0.6); Absolute Neutrophils 10.3 10^3/uL (1.4-6.5); Hematocrit 21.5 % (37.0-47.0); Hemoglobin 7.2 g/dL (12.0-16.0); Mean Corp Hgb Conc. 33.5 g/dL (33.0-37.0); Mean Corpuscular Hgb 28.2 pg (27.0-31.0); Mean Corpuscular Volume 84.3 fL (81.0-99.0); Mean Platelet Volume 8.5 fL (7.4-10.4); Nucleated Red Blood Cells % 0 %; Platelet Count 548 10^3/uL (130-400); Red Blood Cell Count 2.55 10^6/uL (4.20-5.40); Red Cell Dist. Width 16.9 % (11.5-14.5); White Blood Cell Count 15.9 10^3/uL (4.8-10.8)
[2024-03-29 09:39] LABS: ALT (SGPT) 37 U/L (0-35); AST (SGOT) 55 U/L (14-36); Albumin 2.7 g/dl (3.5-5.0); Alkaline Phosphatase 149 U/L (38-126); Blood Urea Nitrogen 33 mg/dl (7-17); Calcium 9.3 mg/dl (8.4-10.2); Carbon Dioxide 24 mmol/L (22-30); Chloride 103 mmol/L (98-107); Estimated Creatinine Clearance 28 ml/min; Glucose 108 mg/dl (70-99); Iron 24 ug/dl (37-170); Potassium 4.5 mmol/L (3.5-5.1); Sodium 136 mmol/L (135-145); Total Bilirubin 0.3 mg/dl (0.2-1.3); Total Protein 6.2 g/dl (6.3-8.2); eGFR 31.27
[2024-03-29] MEDS: VIMPAT 100 MG TUBE ×2 (09:45→20:04)
[2024-03-29] MEDS: NSS (PRESERVATIVE FREE) 10 ML IV ×2 (09:46→20:03)
[2024-03-29] MEDS: PROTONIX IV 40 MG IV ×2 (09:46→20:03)
[2024-03-29] MEDS: NORVASC 10 MG TUBE (09:46)
[2024-03-29 09:49] LABS: Percent Saturation 17 % (20-50); Total Iron Binding Capacity 136 ug/dl (265-497)
[2024-03-29 10:44] LABS: Folate > 20.0 ng/ml (2.76-20); Vitamin B12 956 pg/ml (239-931)
--- NOTE | 2024-03-29 12:22 | W.PN.HOSP.TC ---
Today's Communication/Plan
-
Continue PPI twice daily
Trend CBC
Hold aspirin and Eliquis (likely to DC aspirin completely)
Assessment / Plan
Assessment / Plan
#UGIB on Eliquis
#Coffee-ground substance from PEG
#Melena on rectal exam per ED
#Acute on chronic normocytic anemia
-Had EGD in February that showed esophagitis; colonoscopy in December with polyps
-Was started on IV Protonix drip on arrival; has since been converted to IV twice daily
-Hemoglobin has been 7.2 x 2 here; was 8.7 few days ago; hemoglobin baseline near 8
-Home medications include Eliquis and aspirin; both held upon admission
-Iron panel here consistent with chronic disease state, may have component of iron deficiency
-GI following
Plan
-Continue with IV PPI twice daily for now
-Trend CBC daily, consider stat if bleeding noted
-Hold Eliquis and aspirin; aspirin likely to be discontinued
-Will defer to GI team for decision on inpatient EGD/colonoscopy
#Chronic leukocytosis
-WBC has been chronically elevated and very volatile over time
-Unclear etiology though may be related to her chronic sacral wound
-Cannot rule out underlying lymphoproliferative/hematologic disorder
-No fevers as of now
-Trend CBC and temperature
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
#Chronic osteomyelitis
-Not currently on any antibiotics, wound care following
-Will consider antibiotics for worsening WBC, fevers, or signs of worsening infection
#ESRD
-Currently on hemodialysis every M/W/F via left IJ permacath
-Complicated by significant anemia
-Nephrology consulted to continue dialysis here
#H/O CVA with residual immobility and dysphagia
#Dysphagia s/p PEG
-Home medications include statin and aspirin; on Eliquis for AF as well
-May need to discontinue aspirin while here due to recurrent GI bleeding
-Currently both Eliquis and aspirin on hold
-On loperamide for diarrhea associated with PEG feeds
#Paroxysmal AF
-Home medication includes Eliquis twice daily; currently held due to UGIB
-Not currently on any rate or rhythm controlling agents
#Resistant hypertension
-On multimodal regimen of amlodipine, losartan, hydralazine, clonidine patch
-Suspect that she does have associated systemic disease; possibly ESRD
-Would consider carvedilol if additional antihypertensive agents needed
-BP was well-controlled as of this morning
#CAD s/p PCI
-Home medications include aspirin and statin
-Holding aspirin due to upper GI bleed, may need to be DC'd
-No signs of coronary ischemia
#T2DM
-Home meds include insulin aspart 5 units every 6 hours
-Currently not ordered any hyperglycemic regimen
-Will start Accu-Cheks and consider ISS
DVT prophylaxis: SCDs
Diet: PEG feeds, uptitrate to goal
CODE STATUS: Full code
Anticipated Discharge: 24 - 48 hours
Subjective/Interval History
-
Date of Service: March 29, 2024
Seen and examined at bedside. No acute events reported since admission. AFVSS this morning
Hemoglobin this morning returned at 7.2, stable x 2 draws since admission.
ROS unable to be obtained
Objective Data
-
Labs:
Laboratory Results
03/29/24
09:09
WBC 15.9 H
Hgb 7.2 L
Hct 21.5 L
Plt Count 548 H
Sodium 136
Potassium 4.5
Chloride 103
Carbon Dioxide 24
BUN 33 H
Creatinine 1.7 H
Glucose 108 H
Calcium 9.3
Total Bilirubin 0.3
AST 55 H
ALT 37 H
Alkaline Phosphatase 149 H
Vital Signs:
Vital Signs
Temp Pulse Resp BP Pulse Ox
98.6 F 64 16 128/56 100
03/29/24 07:05 03/29/24 07:05 03/29/24 07:05 03/29/24 07:05 03/29/24 07:05
Review of Systems
-
Unable to obtain full review of systems at this time due to: Dementia and Patient Non-verbal
Physical Exam
-
General: Well Nourished, No Apparent Distress and Comfortable
HEENT: Normocephalic, Atraumatic and Moist Mucous Membranes
Respiratory: Clear to Auscultation and Non Labored Respirations
Cardiac: Regular Rhythm and S1/S2; Negative Murmur, Rub or Gallop
GI: Soft, Nontender, Nondistended, Normal Bowel Sounds and Peg Tube
Musculoskeletal: No Clubbing, No Cyanosis and No Edema
Skin: Warm and Dry; Negative Rash
Neuro: Other (Nonresponsive at baseline)
Psych: Calm
[2024-03-29 12:32] LABS: Glucose - Point of Care 142 mg/dl (70-99)
--- NOTE | 2024-03-29 13:46 | CM ---
Patient seen at bedside. Patient is a STC patient at [facility]. Patient daughter is POA and lives in the [facility] area. Patient family has not completed MA application per liaison at facility. Per liaison they will accept patient to
return to facility but she is not a bed hold. CM will reach out to family to confirm discharge plan. CM will continue to follow for discharge planning needs.
Plan; SNF; [facility] when medically appropriate; confirm with family/send clinical updates
[2024-03-29 15:00] VITALS: BP 143/51
[2024-03-29 18:11] LABS: Glucose - Point of Care 158 mg/dl (70-99)
[2024-03-29] MEDS: LR 1000 IV (22:49)
[2024-03-29 23:27] VITALS: BP 174/58
[2024-03-30 01:06] VITALS: BP 126/48
[2024-03-30 07:07] LABS: ALT (SGPT) 48 U/L (0-35); AST (SGOT) 74 U/L (14-36); Alkaline Phosphatase 201 U/L (38-126); Blood Urea Nitrogen 43 mg/dl (7-17); Calcium 9.4 mg/dl (8.4-10.2); Carbon Dioxide 24 mmol/L (22-30); Chloride 99 mmol/L (98-107); Estimated Creatinine Clearance 19 ml/min; Glucose 216 mg/dl (70-99); Potassium 4.8 mmol/L (3.5-5.1); Sodium 137 mmol/L (135-145); Total Bilirubin 0.3 mg/dl (0.2-1.3); Total Protein 6.8 g/dl (6.3-8.2); eGFR 19.69
[2024-03-30 07:21] LABS: % Basophils 1.2 % (0-2); % Eosinophils 5.6 % (0-6); % Immature Granulocytes 4.4 % (0-0.5); % Lymphocytes 18.2 % (20.5-51.1); % Monocytes 6.5 % (1.7-9.3); % Neutrophils 64.1 % (42.2-75.2); Absolute Basophils 0.2 10^3/uL (0-0.2); Absolute Eosinophils 1.1 10^3/uL (0-0.7); Absolute Immature Granulocytes 0.8 10^3/uL (0-0.05); Absolute Lymphocytes 3.4 10^3/uL (1.2-3.4); Absolute Monocytes 1.2 10^3/uL (0.1-0.6); Absolute Neutrophils 11.9 10^3/uL (1.4-6.5); Hematocrit 23.5 % (37.0-47.0); Hemoglobin 7.6 g/dL (12.0-16.0); Mean Corp Hgb Conc. 32.3 g/dL (33.0-37.0); Mean Corpuscular Hgb 28.8 pg (27.0-31.0); Nucleated Red Blood Cells % 0 %; Platelet Count 673 10^3/uL (130-400); Red Blood Cell Count 2.64 10^6/uL (4.20-5.40); Red Cell Dist. Width 17.4 % (11.5-14.5); White Blood Cell Count 18.6 10^3/uL (4.8-10.8)
[2024-03-30 07:28] LABS: Glucose - Point of Care 244 mg/dl (70-99)
[2024-03-30 07:55] VITALS: BP 143/47
[2024-03-30] MEDS: PROTONIX IV 40 MG IV (08:06)
[2024-03-30] MEDS: VIMPAT 100 MG TUBE (08:06)
[2024-03-30] MEDS: NORVASC 10 MG TUBE (08:06)
[2024-03-30] MEDS: NSS (PRESERVATIVE FREE) 10 ML IV (08:06)
[2024-03-30] MEDS: TYLENOL 650 MG TUBE (08:07)
--- NOTE | 2024-03-30 09:09 | W.PN.GI.CBS2 ---
Today's Communication / Plan
-
continue tube feeds
Assessment / Plan
-
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
sacral wound. In December she was noted with anemia with hbg 5.9. She completed EGD with normal esophagus, peg and normal duodenum. Colon with multiple TA polyps, and hemorrhoids with stool in entire colon. She returned last admission 02/17-03/18 she
was noted with hbg 5.8 but also marked leukocytosis and dark heme + stools. Repeat EGD with noted grade A esophagitis, intact peg with small clean based ulcer at base of peg bumper and duodenitis with normal duodenum. she was recommended goals of
care in continuing anticoagulation. Anemia was also thought to be multifactorial with CKD and large sacral wound. CT in February also note proctitis. She now returns with elevated WBC but noted with some coffee ground in peg tube and black heme
+ stools.
-coffee ground in peg/melena
-recently noted grade A esophagitis and clean based gastric ulcer at base of peg bumper
-dysphagia with chronic peg
-proctitis noted on prior CT in February
-anemia with hx chronic anemia multi factoral
-hx recent sepsis with large necrotic sacral wound
-chronic diarrhea
-leukocytosis with some chronic elevation
-DVT/PAF on Eliquis
other medical problems:
-CVA with chronic aphasia
-dementia
-ESRD on HD
-CAD with prior STEMI
-HTN
-DM
-sacral decub
-seizure d/o
PLAN:
- continue tube feeds
- no evidence of GI bleed
- wound with some bleeding as per nurse and likely contributing to anemia
will sign off call with questions
Subjective
Subjective
Date of Service: March 30, 2024
Pt with no issues from Peg tube. using w/o problem, d/w nurse. big issue is large wound
Objective
Data Reviewed
Laboratory Data:
Laboratory Results
03/30/24 05:45
03/30/24 05:45
Laboratory Results
Total Bilirubin 0.3 mg/dl (0.2-1.3) 03/30/24 05:45
AST 74 U/L (14-36) H 03/30/24 05:45
ALT 48 U/L (0-35) H 03/30/24 05:45
Alkaline Phosphatase 201 U/L (38-126) H 03/30/24 05:45
Vital Signs and I&O:
Vital Signs
Temp Pulse Resp BP Pulse Ox
98.8 F 71 18 143/47 100
03/30/24 07:55 03/30/24 07:55 03/30/24 07:55 03/30/24 07:55 03/30/24 07:55
Physical Exam
Physical Exam
GI: Soft, Non Distended and Other (PEG in place, bumper loose)
[2024-03-30 09:52] VITALS: BMI 28.4
--- NOTE | 2024-03-30 10:59 | W.PN.HOSP.TC ---
Today's Communication/Plan
-
Discontinue aspirin
Discharge
Assessment / Plan
Assessment / Plan
#UGIB on Eliquis
#Coffee-ground substance from PEG
#Melena on rectal exam per ED
#Acute on chronic normocytic anemia
-Had EGD in February that showed esophagitis; colonoscopy in December with polyps
-Was started on IV Protonix drip on arrival; has since been converted to IV twice daily
-Iron panel here consistent with chronic disease state, may have component of iron deficiency
-GI following; hemoglobin has stabilized, unlikely for inpatient scope
-Will continue PPI twice daily oral at discharge
-Discontinue aspirin, continue with Eliquis
-CBC in 7 days at facility
#Chronic leukocytosis
-WBC has been chronically elevated and very volatile over time
-Unclear etiology though may be related to her chronic sacral wound
-Cannot rule out underlying lymphoproliferative/hematologic disorder
-No fevers as of now
-Trend CBC and temperature
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
#Chronic osteomyelitis
-Not currently on any antibiotics, wound care following
-Will consider antibiotics for worsening WBC, fevers, or signs of worsening infection
#ESRD
-Currently on hemodialysis every M/W/F via left IJ permacath
-Complicated by significant anemia
-Nephrology consulted to continue dialysis here
#H/O CVA with residual immobility and dysphagia
#Dysphagia s/p PEG
-Home medications include statin and aspirin; on Eliquis for AF as well
-May need to discontinue aspirin while here due to recurrent GI bleeding
-Currently both Eliquis and aspirin on hold
-On loperamide for diarrhea associated with PEG feeds
#Paroxysmal AF
-Home medication includes Eliquis twice daily; currently held due to UGIB
-Not currently on any rate or rhythm controlling agents
#Resistant hypertension
-On multimodal regimen of amlodipine, losartan, hydralazine, clonidine patch
-Suspect that she does have associated systemic disease; possibly ESRD
-Would consider carvedilol if additional antihypertensive agents needed
-BP was well-controlled as of this morning
#CAD s/p PCI
-Home medications include aspirin and statin
-Holding aspirin due to upper GI bleed, may need to be DC'd
-No signs of coronary ischemia
#T2DM
-Home meds include insulin aspart 5 units every 6 hours
-Currently not ordered any hyperglycemic regimen
-Will start Accu-Cheks and consider ISS
DVT prophylaxis: SCDs
Diet: PEG feeds, uptitrate to goal
CODE STATUS: Full code
Anticipated Discharge: Today
Subjective/Interval History
-
Date of Service: March 30, 2024
Seen and examined at bedside. No acute events overnight. AFVSS this morning.
Renal function slightly higher though does have volatile history, likely near baseline. No recurrence of bleeding, hemoglobin stable despite IV fluid
Unable to obtain ROS due to baseline mental status
Objective Data
-
Labs:
Laboratory Results
03/30/24
05:45
WBC 18.6 H
Hgb 7.6 L
Hct 23.5 L
Plt Count 673 H D
Sodium 137
Potassium 4.8
Chloride 99
Carbon Dioxide 24
BUN 43 H
Creatinine 2.5 H
Glucose 216 H
Calcium 9.4
Total Bilirubin 0.3
AST 74 H
ALT 48 H
Alkaline Phosphatase 201 H
Vital Signs:
Vital Signs
Temp Pulse Resp BP Pulse Ox
98.8 F 71 18 143/47 100
03/30/24 07:55 03/30/24 07:55 03/30/24 07:55 03/30/24 07:55 03/30/24 07:55
Review of Systems
-
Unable to obtain full review of systems at this time due to: Patient Non-verbal
Physical Exam
-
General: Well Nourished, No Apparent Distress and Comfortable
HEENT: Normocephalic, Atraumatic and Moist Mucous Membranes
Respiratory: Clear to Auscultation and Non Labored Respirations
Cardiac: Regular Rhythm, S1/S2 and Murmur (Apical blowing murmur)
GI: Soft, Nontender, Nondistended, Normal Bowel Sounds and Peg Tube
Musculoskeletal: No Clubbing, No Cyanosis and No Edema
Skin: Warm and Dry; Negative Rash
Neuro: Other (Minimally responsive baseline, response to external stimuli)
Psych: Calm
Data Reviewed
-
Labs: Labs Reviewed by me and Discussed with Nurse
--- NOTE | 2024-03-30 11:51 | CM ---
CM reviewed chart. Bed confirmed at [facility] for pr today.
RN to call report to [phone]
clinical to be faxed to [phone]
Pt requires BLS transport at pr.
--- NOTE | 2024-03-30 11:56 | W.DCSUMMARY ---
Discharge Summary
Discharge Data
Date of Admission: 03/28/24
Date of Discharge: 03/30/24
-
Pending Results: No
Hospital Course
73-year-old female with ESRD (M/W/F), PAF on Eliquis, CAD, HTN, seizure disorder, diabetes mellitus, severe dementia in the context of large CVA, H/O UGIB, s/p PEG that presented to the hospital with concerns for upper GI bleed due to coffee-ground
emesis produced via PEG tube, melena noted in the ED. Was started on IV PPI drip and hemoglobin counts were monitored. DOAC and aspirin were held. Blood counts stabilized and started to improve despite IV fluids. Was evaluated by GI while here,
no indication for inpatient EGD or colonoscopy. Stable for discharge on 03/30/2024 back to facility. Antihypertensive regimen resumed. Was started back on home Eliquis. Discontinued aspirin permanently. Should have CBC in 1 week after discharge
at the facility. Continue with PPI twice daily via PEG
Discharge Plan
-
Patient Disposition: Home (Routine Discharge)
Discharge Diagnosis/Procedures: Upper GI bleed/coffee-ground PEG tube output
Chronic anemia
Condition: Fair
Diet: Other diet
Additional Diets: Previous diet/tube feeds
Activity: As tolerated
Driving Restrictions: No driving
Bathing Restrictions: None
Blood Work: CBC in 7 days to recheck hemoglobin
Activity Restrictions/Additional Instructions:
Schedule follow-up with family doctor/primary care provider within 7 days of discharge from the hospital
Instructions: GI bleed
Referrals:
Earl Gloria I., DO [Family Provider] -
Additional Discharge Medication Instructions: Discontinue aspirin
Prescriptions:
Continued
atorvastatin [Lipitor] 20 mg Tablet
20 mg feeding tube HS
clonidine 0.1 mg/24 hr Patch Weekly
1 patch TRANSDERMAL TH
amlodipine [Norvasc] 10 mg Tablet
10 mg feeding tube DAILY
lacosamide [Vimpat] 10 mg/mL Solution
100 mg feeding tube BID
losartan 100 mg Tablet
100 mg feeding tube DAILY Qty: 0 0RF
Eliquis 5 mg Tablet
5 mg feeding tube BID Qty: 1 0RF
acetaminophen 325 mg Tablet
650 mg FEEDING TUBE Q6HPRN PRN (Reason: mild pain/fever>100.4)
loperamide 1 mg/5 mL Liquid
2 mg feeding tube [id number] PRN (Reason: loose stools)
magnesium hydroxide [Milk of Magnesia] 400 mg/5 mL Suspension
30 ml FEEDING TUBE [id number] PRN (Reason: if no bm x 3 days)
bisacodyl [Dulcolax (bisacodyl)] 10 mg Suppository
10 mg MT DAILYPRN PRN (Reason: if no results for MOM)
pantoprazole [Protonix] [address] for susp in packet
40 mg feeding tube BID
hydralazine 50 mg tablet
75 mg feeding tube Q8H
insulin aspart U-100 100 unit/mL (3 mL) insulin pen
5 unit SC Q6H
Discontinued
aspirin 81 mg Tablet,Chewable
81 mg feeding tube DAILY
Discharge Orders:
Discharge Patient (As Directed); Ordered 03/30/24
Ordered By: Hernesto Fong
Discharge Date and Time
Print Language: JAPANESE
[2024-03-30 13:49] VITALS: BP 140/55
--- NOTE | 2024-03-30 14:50 | PTCARENOTE ---
vitals taken before discharge temp was 99.3 Dr Fong made aware and he states that patient may go.
== END 2024-03-30 14:53 | DRG 377 ==
LOC: 2 NORTH 21:39
PROVIDERS: Clinical Nurse Specialist Family Health; ADMITTING PHYSICIAN Hospitalist; ATTENDING PHYSICIAN Internal Medicine; CONSULT PHYSICIAN Internal Medicine; EMERGENCY PHYSICIAN Emergency Medicine; FAMILY PHYSICIAN Internal Medicine
DX: K92.2 Gastrointestinal hemorrhage, unspecified (principal); K20.91 Esophagitis, unspecified with bleeding; N18.6 End stage renal disease; I13.2 Hypertensive heart and chronic kidney disease with heart failure and with stage 5 chronic kidney disease, or end stage renal disease; I50.32 Chronic diastolic (congestive) heart failure; I69.354 Hemiplegia and hemiparesis following cerebral infarction affecting left non-dominant side; Z99.2 Dependence on renal dialysis; E11.22 Type 2 diabetes mellitus with diabetic chronic kidney disease; I48.0 Paroxysmal atrial fibrillation; Z79.01 Long term (current) use of anticoagulants; I1A.0 Resistant hypertension; I25.10 Atherosclerotic heart disease of native coronary artery without angina pectoris; Z93.1 Gastrostomy status; Z79.82 Long term (current) use of aspirin; I69.320 Aphasia following cerebral infarction
CPT/HCPCS: 80048; 80053; 82607; 82728; 82746; 82962; 83540; 83550; 85025; 86850; 86900; 86901; 96365; 96366; 99283; 99284

== ENCOUNTER 2024-04-08 02:56 | Inpatient (IN) | payer MEDICARE, BC, SELFPAY ==
[2024-04-07 21:26] VITALS: BP 136/44
[2024-04-07] MEDS: TYLENOL/FEVERALL 650 MG RECTAL (21:38)
[2024-04-07 22:00] VITALS: BP 125/41
[2024-04-07 22:39] LABS: Lactic Acid 1.1 mmol/L (0.7-2.0)
[2024-04-07 22:46] LABS: ALT (SGPT) 23 U/L (0-35); AST (SGOT) 44 U/L (14-36); Albumin 2.4 g/dl (3.5-5.0); Alkaline Phosphatase 175 U/L (38-126); Blood Urea Nitrogen 31 mg/dl (7-17); Calcium 8.2 mg/dl (8.4-10.2); Carbon Dioxide 28 mmol/L (22-30); Chloride 90 mmol/L (98-107); Glucose 242 mg/dl (70-99); Potassium 3.9 mmol/L (3.5-5.1); Sodium 126 mmol/L (135-145); Total Bilirubin 0.2 mg/dl (0.2-1.3); Total Protein 5.7 g/dl (6.3-8.2); eGFR 33.63
[2024-04-07 22:56] LABS: % Basophils 0.4 % (0-2); % Eosinophils 1.6 % (0-6); % Immature Granulocytes 3.2 % (0-0.5); % Lymphocytes 9.5 % (20.5-51.1); % Monocytes 6.4 % (1.7-9.3); % Neutrophils 78.6 % (42.2-75.2); Absolute Basophils 0.1 10^3/uL (0-0.2); Absolute Eosinophils 0.4 10^3/uL (0-0.7); Absolute Immature Granulocytes 0.7 10^3/uL (0-0.05); Absolute Lymphocytes 2.2 10^3/uL (1.2-3.4); Absolute Monocytes 1.4 10^3/uL (0.1-0.6); Absolute Neutrophils 17.7 10^3/uL (1.4-6.5); Hematocrit 18.6 % (37.0-47.0); Mean Corp Hgb Conc. 32.3 g/dL (33.0-37.0); Mean Corpuscular Hgb 26.8 pg (27.0-31.0); Mean Platelet Volume 8.5 fL (7.4-10.4); Nucleated Red Blood Cells % 0.1 %; Platelet Count 534 10^3/uL (130-400); Red Blood Cell Count 2.24 10^6/uL (4.20-5.40); Red Cell Dist. Width 17.5 % (11.5-14.5); White Blood Cell Count 22.5 10^3/uL (4.8-10.8)
[2024-04-07 23:00] VITALS: BP 112/42
--- NOTE | 2024-04-07 23:40 | ED.GENMED ---
History of Present Illness
General
Chief Complaint: Abnormal Lab Value
Source: patient, records, assisted records and previous hospital records
Exam Limitations: non verbal-adult
Time Seen by Provider: 04/07/24 23:05
Nursing documentation reviewed up to this point in time: agreed with
History of Present Illness
History of Present Illness:
73-year-old female from a local assisted presents with anemia and fever
Admitted recently with anemia blood thinners were held seen by GI no EGD completed
Today she had blood work so she was anemic also noted to be febrile has a large stage IV decubiti patient is nonverbal currently on blood thinners
Past History
Past History
ED Past Medical History: Arrthythmia (Atrial fibrillation), NIDDM, Renal failure, Seizures and Other (Dementia, dysphagia, G-tube, anemia)
ED Past Surgical History: Other (Gastrostomy tube, left upper chest dialysis port)
Social History
Tobacco: Non-smoker
Alcohol: None
Drug: None
Personal:
Living: assisted
Employment: Not employed
Family History
Family History: Unable to obtain (Nonverbal)
Review of Systems
Review of Systems
Allergies reviewed?: Yes
Unable to obtain full review of systems at this time due to: non-verbal
All Other Systems: Not applicable
Phy Exam
Physical Exam
Physical Exam:
Physical Exam
General: Nontoxic elderly Afro-[place]ander female nonverbal febrile
Neck: No jaundice catheter to left anterior chest wall
Heart: Regular
Lungs: Bibasilar crackles
Abdomen: Nontender
Rectal no gross blood
Neuro: Nonverbal
Skin: Deep stage III-IV decubiti sacrum
Psychiatric: Unable to assess
Extremities: no edema.
Course
Orders/Labs/Results
Orders:
Orders
04/07/24 21:36
Acetaminophen [Tylenol/Feverall] 650 mg RECTAL NOW STA
04/07/24 22:22
Complete Blood Count/With Diff Urgent
Comprehensive Metabolic Panel Urgent
Lactic Acid Urgent
04/07/24 23:33
* Blood Bank Products Urgent
Blood Bank Products: *Packed RBC Leuko(PRBC's)
Quantity: 1
Transfuse Today: Yes
Reason: Anemia
Type And Crossmatch Urgent
IV Insert/Care/Rem.- Treatment PRN
04/07/24 23:34
CR Chest Portable - 1 View Urgent
Comment:
Reason For Exam: fever anemai esrd
Reason Study Needs to be Portable: Patient Unstable
04/07/24 23:45
Blood Culture Q30M
FERNANDO Source: Blood/Venous
Specimen Description:
04/08/24 00:15
Blood Culture Q30M
FERNANDO Source: Blood/Venous
Specimen Description:
Abnormal Lab Results
04/07/24
22:22
WBC 22.5 H 10^3/uL
(4.8-10.8)
RBC 2.24 L 10^6/uL
(4.20-5.40)
Hgb 6.0 L* g/dL
(12.0-16.0)
Hct 18.6 L* %
(37.0-47.0)
MCH 26.8 L pg
(27.0-31.0)
MCHC 32.3 L g/dL
(33.0-37.0)
RDW 17.5 H %
(11.5-14.5)
Plt Count 534 H 10^3/uL
(130-400)
Abs Immat Gran (auto) 0.7 H 10^3/uL
(0-0.05)
Absolute Neuts (auto) 17.7 H 10^3/uL
(1.4-6.5)
Absolute Monos (auto) 1.4 H 10^3/uL
(0.1-0.6)
Immature Gran % 3.2 H %
(0-0.5)
Neutrophils % 78.6 H %
(42.2-75.2)
Lymphocytes % 9.5 L %
(20.5-51.1)
Sodium 126 L mmol/L
(135-145)
Chloride 90 L mmol/L
(98-107)
BUN 31 H mg/dl
(7-17)
Creatinine 1.6 H mg/dL
(0.6-1.0)
Glucose 242 H mg/dl
(70-99)
Calcium 8.2 L mg/dl
(8.4-10.2)
AST 44 H U/L
(14-36)
Alkaline Phosphatase 175 H U/L
(38-126)
Total Protein 5.7 L g/dl
(6.3-8.2)
Albumin 2.4 L g/dl
(3.5-5.0)
04/07/24 22:22
04/07/24 22:22
Vital Signs
Initial and Last Documented VS:
Initial Vital Signs
Temp Pulse BP
101.4 F H 88 136/44
04/07/24 21:26 04/07/24 21:26 04/07/24 21:26
Last Documented Vital Signs
Temp Pulse Resp BP Pulse Ox
100.5 F H 79 24 112/42 100
04/07/24 23:15 04/07/24 23:00 04/07/24 23:00 04/07/24 23:00 04/07/24 23:00
MDM/Problems Addressed
Differential Diagnosis Includes:
Upper GI bleed lower GI bleed bleeding from decubiti bleeding due to anticoagulants, chronic disease anemia
MDM/Problems Addressed:
Fever anemia
Chronic conditions affecting care: DM, HTN, Arrhythmia, Neurological disorder and Kidney disease
Acute Exacerbation and/or Progression of Chronic Illness: DM, HTN, Arrhythmia, Neurological disorder and Kidney disease
*Critical Care Note
Total Time (30-74mins, 75-104mins- exclusive of procedures): 31
Update Note
Update Note:
Update prior records reviewed does have ESRD chronic osteomyelitis of the sacrum not on antibiotics but there was consideration of starting some with any fever she is febrile here we will start antibiotics check blood cultures check chest x-ray I
did obtain consent from spouse Art for blood transfusions
ED Attending Note
-
Portions of this chart may have been created with voice recognition software.� Occasional wrong word or��sound alike� substitutions may have occurred due to the inherent limitations of voice recognition software.
Discharge Plan
Departure
Patient Disposition: Admit
Date of Disposition: 04/07/24
Time of Disposition: 23:51
Admit to: Med/Surg
Presentation/result/management discussed w/ accepting MD/DO: Hospitalist
Patient with high blood pressure during this ER visit?: No
Condition: Fair
Covid-19: Not Applicable
Discharge Problem:
ESRD (end stage renal disease) on dialysis, Sacral decubitus ulcer, Sepsis, Functional quadriplegia, Pressure ulcer of sacral region, stage 4, Metabolic encephalopathy, Dementia, History of CVA (cerebrovascular accident), ESRD (end stage renal
disease), Anemia
Prescriptions:
No Action
atorvastatin [Lipitor] 20 mg Tablet
20 mg feeding tube HS
clonidine 0.1 mg/24 hr Patch Weekly
1 patch TRANSDERMAL TH
amlodipine [Norvasc] 10 mg Tablet
10 mg feeding tube DAILY
lacosamide [Vimpat] 10 mg/mL Solution
100 mg feeding tube BID
losartan 100 mg Tablet
100 mg feeding tube DAILY Qty: 0 0RF
Eliquis 5 mg Tablet
5 mg feeding tube BID Qty: 1 0RF
acetaminophen 325 mg Tablet
650 mg FEEDING TUBE Q6HPRN PRN (Reason: mild pain/fever>100.4)
loperamide 1 mg/5 mL Liquid
2 mg feeding tube [id number] PRN (Reason: loose stools)
magnesium hydroxide [Milk of Magnesia] 400 mg/5 mL Suspension
30 ml FEEDING TUBE [id number] PRN (Reason: if no bm x 3 days)
bisacodyl [Dulcolax (bisacodyl)] 10 mg Suppository
10 mg OR DAILYPRN PRN (Reason: if no results for MOM)
pantoprazole [Protonix] [address] for susp in packet
40 mg feeding tube BID
hydralazine 50 mg tablet
75 mg feeding tube Q8H
insulin aspart U-100 100 unit/mL (3 mL) insulin pen
5 unit SC Q6H
Rx Instructions:
hold if blood sugar <150
insulin glargine 100 unit/mL Solution
8 unit SC DAILY
Referrals:
Earl Gloria I., DO [Family Provider] -
Interventions
Interventions:
*Risk Screen - Suicide Last Done: 04/07/24 21:26
*General Assessment Last Done: 04/07/24 21:26
*Neglect/Abuse Screening Last Done: 04/07/24 21:26
*ED COVID-19 Vaccine History Last Done: 04/07/24 21:26
Discharge Date and Time
Print Language: MOHAWK
[2024-04-08] VITALS (15 sets, daily range): BP systolic 107–155; BP diastolic 33–72
[2024-04-08] MEDS: ZOSYN 50 IV ×3 (01:14→16:11)
--- NOTE | 2024-04-08 02:06 | HPS.HSE ---
Family Physician
-
Family Physician: Earl Gloria
Chief Complaint
-
Fever and hemoglobin dropped to 6.3 from half-way
History of Present Illness
This a 73-year-old female with past medical history significant for ESRD on HD Sunday, CVA with residual dementia status post PEG and immobility, paroxysmal atrial fibrillation on anticoagulation, hypertension, diabetes, prior GI
bleed who presents to the emergency department from half-way after being found to have a hemoglobin of 6.3 and had a fever.
Patient was admitted and discharged from [facility] hospital on the for possible upper GI bleed in the setting of coffee-ground's from PEG tube. She ultimately had anticoagulation held and aspirin stopped anticoagulation restarted. She had a stable
blood counts during her stay despite getting some IV fluids. EGD was not performed at that time given patient's stability. She was discharged on Eliquis. Patient had a blood test today showing hemoglobin of 6.3. She also had a fever at the
half-way.
Patient could not provide any history given her mental status. No additional history per the half-way records.
She had a rectal exam in the emergency department which was guaiac negative brown
Vital signs in the ED showed a temp of 101.4 initially, blood pressure of 110/40 with a pulse of 75. Chest x-ray was clear. CBC shows leukocytosis to 22,000 with a hemoglobin of 6.0 and a normal platelet count. Chemistry is showed a sodium of
126, K of 3.9.
Medical History
Past Medical History
Past Medical History: Reports Arrhythmia (Paroxysmal atrial fibrillation), CAD, CVA (Residual dementia and hemiplegia), HTN, IDDM and Renal Failure (On hemodialysis Sunday via a left IJ)
Past Surgical History: Reports Other (Status post PEG)
Social History
Unable to obtain full social history at this time due to: Patient Non-verbal
Family History
Family History: Not pertinent
Allergies / Home Medications
Allergies reflects when Allergies were last updated in [facility].
Home Medications with original date entered in [facility]
Allergy/Medication List:
Allergies
Allergy/AdvReac Type Severity Reaction Status Date / Time
adhesive tape Allergy Unknown Verified 04/07/24 21:17
codeine Allergy Unknown Verified 04/07/24 21:17
oxycodone Allergy Unknown Verified 04/07/24 21:17
tramadol Allergy Unknown Verified 04/07/24 21:17
Home Medications
amlodipine 10 mg tablet (Norvasc) 10 mg feeding tube DAILY Blood Pressure 12/27/23
atorvastatin 20 mg tablet (Lipitor) 20 mg feeding tube HS High Cholesterol 12/27/23
clonidine 0.1 mg/24 hr weekly transdermal patch 1 patch transdermal TH Blood Pressure 12/27/23
lacosamide 10 mg/mL oral solution (Vimpat) 100 mg feeding tube BID Seizures 12/27/23
apixaban 5 mg tablet (Eliquis) 5 mg feeding tube BID Blood Clot Prevention/Tx #1 tab 01/03/24
losartan 100 mg tablet 100 mg feeding tube DAILY #0 tabs 01/03/24
acetaminophen 325 mg tablet 650 mg feeding tube Q6HPRN PRN mild pain/fever>100.4 03/26/24
bisacodyl 10 mg rectal suppository (Dulcolax (bisacodyl)) 10 mg MN DAILYPRN PRN if no results for MOM 03/26/24
loperamide 1 mg/5 mL oral liquid 2 mg feeding tube [id number] PRN loose stools 03/26/24
magnesium hydroxide 400 mg/5 mL oral suspension (Milk of Magnesia) 30 ml feeding tube [id number] PRN if no bm x 3 days 03/26/24
pantoprazole 40 mg granules delayed-release for susp in packet (Protonix) 40 mg feeding tube BID Gastrointestinal Issue 03/26/24
hydralazine 50 mg tablet 75 mg feeding tube Q8H Blood Pressure 03/28/24
insulin aspart U-100 100 unit/mL (3 mL) subcutaneous pen 5 unit SC Q6H Diabetes 03/28/24
insulin glargine 100 unit/mL subcutaneous solution 8 unit SC DAILY 04/07/24
Review of Systems
-
Unable to obtain full review of systems at this time due to: Patient Non-verbal
Physical Exam
Vital Signs
Vital Signs
Temp Pulse Resp BP Pulse Ox
99.4 F 73 18 120/39 100
04/08/24 02:01 04/08/24 02:01 04/08/24 02:01 04/08/24 02:01 04/08/24 02:01
Physical Exam
General: No Apparent Distress
HEENT: NormoCephalic, Anicteric, Moist mucous membranes, Atraumatic, [place] Conjunctivae and Neck Nontender
Respiratory: Clear
Cardiac: S1/S2 and Regular Rhythm
Breast: Deferred by me
GI: Soft, Non Tender, Non Distended and Peg Tube (Clear, no coffee-ground)
Rectal: Brown and Hem Negative
Genito-urinary: Deferred by me
Musculoskeletal: No Clubbing, No Cyanosis and No Edema
Skin: Ulcers (A large sacral decubitus ulcer draining purulent serosanguineous and bloody fluid. Malodorous. )
Neuro: Awake and Other (Patient is alert and awake but unable to communicate. Does not follow commands.)
Hematologic/Lymphatic: No Lymphadenopathy
Psych: Apparent Dementia
Laboratory Results
-
04/07/24 22:22
04/07/24 22:22
Laboratory Results
Lactic Acid 1.1 mmol/L (0.7-2.0) 04/07/24 22:22
Total Bilirubin 0.2 mg/dl (0.2-1.3) 04/07/24 22:22
AST 44 U/L (14-36) H 04/07/24 22:22
ALT 23 U/L (0-35) 04/07/24 22:22
Alkaline Phosphatase 175 U/L (38-126) H 04/07/24 22:22
Data Reviewed
-
Diagnostic Radiology: Image Personally Visualized and interpreted
Lab Data: Labs Reviewed by me
Old Records: Reviewed
Impression/Plan
-
IMPRESSION:
69-year-old 3-year-old female with extensive past medical history notable for ESRD, severe dementia secondary to massive CVA, status post PEG, hypertension, insulin-dependent diabetes, chronic anemia coming in with fever and anemia to 6.0 at the
half-way. On exam she is otherwise well-appearing with a rather large decubitus sacral ulcer with purulent and bloody drainage. She is febrile, but hemodynamically stable. No pulmonary findings. Marked leukocytosis.
PLAN:
Fever - fever with leukocytosis. Possibly bacteremic. Catheter associated infection/dialysis or possibly acute wound infection.
- admit to med/surg
- blood cultures sent
- will check lactate, cov
- got vanc/zosy. Vanc to be continued on HD per pharm protocol,
- zosyn
- ID consult
Anemia - Suspect ongoing blood loss from wound. No signs of acute gi bleed.
- type and screen. Transfusing 1 unit now. H/H q 8. Transfuse for Hgb < 7
- occult blood testing
- hold of anna marie gi consult at this time
- wound evaluation
- holding eliquis for now until non-gi sources confirmed and stable hgb
Wound - stage 4 sacral decub, infected
- wound care
- check lactate
- surgery consult for possibly debridement.
DM II - on aspart 5 q 6 while on tube feeds and lantus 8 hs
- npo, sliding scale insulin q6 until diet started
ESRD - HD m/w/f via pc.
- nephrology consultation
pAFIB - rate controlled
- holding eliquis pending stable h/h
TubeFeeding -
- nutrition consult
DVT PPX - heparin sq while holding eliquis
Code status - Full code
[2024-04-08] MEDS: VANCOCIN 540 MG IV (05:10)
--- NOTE | 2024-04-08 06:06 | TRANSFER ---
Received pt from ED via stretcher. Pt pulled over to bed with assist x3. AAOx3, mostly nonverbal. Assessed, unable to orient to room. VSS. Pt laying in bed comfortably.
[2024-04-08 06:29] LABS: Glucose - Point of Care 195 mg/dl (70-99)
[2024-04-08] MEDS: NOVOLOG FLEXPEN-MODERATE RESISTANCE 1 UNITS SC ×2 (06:31→17:57)
--- NOTE | 2024-04-08 08:02 | W.PN.HOSP.TC ---
Today's Communication/Plan
-
Continue antibiotics
Surgical consult
Hemodialysis tomorrow
Follow CBC/BMP
Assessment / Plan
Assessment / Plan
IMPRESSION:
69-year-old 3-year-old female with extensive past medical history notable for ESRD, coming in with fever and anemia from [address] [place] [address]. She was recently discharged 1 week ago. On exam she is otherwise well-appearing with a rather
large decubitus sacral ulcer with purulent and bloody drainage. She is febrile, but hemodynamically stable. No pulmonary findings. Marked leukocytosis.
Assessment/plan:
#Sepsis secondary to sacral wound infection.
-Large stage IV sacral wound ulcer with purulent necrotic tissue and exposed coccyx.
-Worsening leukocytosis.
-Blood cultures pending.
-Continue vancomycin and Zosyn.
-ID consult.
#Sacral stage IV decubitus ulcer, posterior thigh/ischium stage III ulcer.
-Most likely the point of entry of bacteremia.
-Surgical consult for possible debridement.
-Wound consult.
-Pressure redistribution devices.
Anemia
-Hb 6.0 on admission, 8.8 s/p 1U PRBC.
-No signs of acute GI loss, most likely chronic.
-Hemoccult testing negative.
-Eliquis discontinued until Hb stable.
#Hyponatremia/ESRD
-Most likely hypovolemic.
-Continue hemodialysis M/W/F
#Type 2 diabetes mellitus
-Hold home Lantus and aspart for NPO.
-Sliding scale Q6
#Paroxysmal A-fib
-Rate controlled
-Hold Eliquis with anemia.
#TubeFeeding
-Trommel Tender consult
DVT PPX - heparin sq while holding eliquis
Code status - Full code
Anticipated Discharge: > 48 hours
Subjective/Interval History
-
Date of Service: April 08, 2024
Objective Data
-
Labs:
Laboratory Results
04/07/24 04/08/24
22:22 14:00
WBC 22.5 H
Hgb 6.0 L* Pending
Hct 18.6 L*
Plt Count 534 H
Sodium 126 L
Potassium 3.9
Chloride 90 L
Carbon Dioxide 28
BUN 31 H
Creatinine 1.6 H
Glucose 242 H
Calcium 8.2 L
Total Bilirubin 0.2
AST 44 H
ALT 23
Alkaline Phosphatase 175 H
Vital Signs:
Vital Signs
Temp Pulse Resp BP Pulse Ox
98.4 F 85 18 155/72 99
04/08/24 05:30 04/08/24 05:30 04/08/24 05:30 04/08/24 05:30 04/08/24 05:30
I&O
04/07/24 04/08/24 04/09/24
06:59 06:59 06:59
Intake Total 250 / 250
Balance 250 / 250
--- NOTE | 2024-04-08 08:20 | PHA.VAN.IN ---
Assessment
- Assessment
Renal Function: Patient has ESRD, on chronic Hemodialysis
Hemodialysis Schedule: MWF
Plan
- Plan
Initial / Loading Dose: 2000mg - 04/08 05:10
Maintenance Regimen: dosing by level
Monitoring: random 04/09 prior to HD
Pharmacokinetics Vancomycin I
- -
Patient Age: 73
Patient Sex: Female
Vancomycin Day #: 1
Indication: Skin And Soft Tissue
Requesting Provider: Dr. Staton
Pertinent Antimicrobial Allergies:
no pertinent antibiotic allergies
Height / Weight:
Height 5 ft 4 in
Actual Weight 70.715 kg
Pertinent Past Medical History: ESRD on HD MWF, DM II
- Vital Signs / Lab Results
Temp Pulse Resp BP Pulse Ox
97.9 F 83 16 151/63 100
04/08/24 07:55 04/08/24 07:55 04/08/24 07:55 04/08/24 07:55 04/08/24 07:55
Lab Results - Hematology
04/07/24
22:22
WBC 22.5 H
Lab Results - Chemistry
04/07/24
22:22
BUN 31 H
Creatinine 1.6 H
Albumin 2.4 L
04/07/24
22:22
Lactic Acid 1.1
[2024-04-08] MEDS: COZAAR 100 MG TUBE (08:37)
[2024-04-08] MEDS: APRESOLINE 75 MG TUBE ×3 (08:37→23:58)
[2024-04-08] MEDS: NORVASC 10 MG TUBE (08:37)
[2024-04-08] MEDS: HEPARIN 5000 UNITS SC ×3 (08:38→23:57)
[2024-04-08] MEDS: VIMPAT 100 MG TUBE ×2 (09:03→20:57)
--- NOTE | 2024-04-08 11:13 | WOUNDNOTE ---
HEELS, L HEEL ON TOP
--- NOTE | 2024-04-08 11:16 | WOUNDNOTE ---
HEELS AND FEET
--- NOTE | 2024-04-08 11:21 | WOUNDNOTE ---
FABIENNE RN note: Patient admitted with anemia and fever from [facility].
See H&P for complete history.
PMH: Dementia, seizures, RF with dialysis, A fib. CHF,DVT, dysphagia-Feeding tube, sacral, L ischium and ear PI's.
Wound Location and type/assessment: Patient known to service, admitted with: Sacral stage 4 PI, bone exposed, slough mixed with pink and foul odor. L posterior thigh/ischium with stage 3 PI and scarring. R ischium with stage 2 PI and scarring. R
ear rims with healing stage 2 PI, dry and red, L intact. L Heel with dried up blister that peeled off with cleaning, revealing small stage 3 PI medially, otherwise pink intact skin. R heel with chronic small brown dot and dry skin on both feet and
legs. Patient assessed with assist of nursing students, repositioned to L side.
Appetite: NPO, TF via G tube.
Pressure redistribution devices in place: On Accumax, called [facility] for versa care Air mattress, Pillow placed under calves. Called [facility] for offloading heel boots,(waffle boots only available) nurse Dom aware of the above.
Plan: Foam adhesives applied to heels. silicone foams to L &R Ischium/ thigh. Saline WTD applied to sacrum will order Dakin's wtd to start tomorrow. Recommended surgical consult for Sacrum if hospitalist deems warranted. Will confirm orders with
hospitalist and updated nurse. Updated care plan and will follow as needed.
Note to case management of equipment requested for discharge: Air mattress
--- NOTE | 2024-04-08 11:35 | W.CON.NEPH ---
Consultation
-
Date/Time Consultation Requested: 04/08/2024 8 AM
Date/Time Consultation Performed: 04/08/2024 11 AM
Requesting Provider: Dr. Staton
Performing Provider: Dr. Matthew
Reason for Consultation: ESRD
Medical History
-
Chief Complaint: Decub wound infection
History of Present Illness:
This is a 73-year-old female with end-stage renal disease on hemodialysis at [facility] Sunday, anemia secondary to chronic disease, DVT on anticoagulation, paroxysmal atrial fibrillation, DM, hypertension on a multidrug regimen,
seizures controlled with Vimpat, dysphagia with PEG tube, CAD with prior NSTEMI on ASA, statin, GERD on PPI, CVA, also reported ?history of lung cancer. She was sent to the emergency room from [facility] because of fever as well as anemia. Her
hemoglobin was found to be 6.0 in the emergency room. We are asked to assist with management of her ESRD. She had just left the hospital about 1 week ago. She had a prolonged admission due to persistent anemia as well as decubitus ulcers. She is
also noted to have elevated white count at 22.5, worse than at the time of discharge
Past Medical History
ESRD on HD [facility]
left Chest wall catheter
CAD with NSTEMI
Anemia of chronic disease
DVT on AC
PAfib
HTN
seizures
CVA c/b aphasia
dysphagia with PEG tube in place
?h/o lung cancer
HTN on multiple meds
GERD
Hyponatremia
DM
Past Medical History: Other
Social History
Tobacco: Non-Smoker
Alcohol: None
Drug: None
Living: Prison
Family History
Family History: Not Pertinent
Allergies / Home Medications
Allergy/AdvReac Type Severity Reaction Status Date / Time
adhesive tape Allergy Unknown Verified 04/07/24 21:17
codeine Allergy Unknown Verified 04/07/24 21:17
oxycodone Allergy Unknown Verified 04/07/24 21:17
tramadol Allergy Unknown Verified 04/07/24 21:17
�Medication �Instructions �Recorded �Confirmed �Type
amlodipine 10 mg tablet (Norvasc) 10 mg feeding tube DAILY Blood 12/27/23 04/07/24 History
Pressure
atorvastatin 20 mg tablet (Lipitor) 20 mg feeding tube HS High 12/27/23 04/07/24 History
Cholesterol
clonidine 0.1 mg/24 hr weekly 1 patch transdermal TH Blood 12/27/23 04/07/24 History
transdermal patch Pressure
lacosamide 10 mg/mL oral solution 100 mg feeding tube BID Seizures 12/27/23 04/07/24 History
(Vimpat)
apixaban 5 mg tablet (Eliquis) 5 mg feeding tube BID Blood Clot 01/03/24 04/07/24 Rx
Prevention/Tx #1 tab
losartan 100 mg tablet 100 mg feeding tube DAILY #0 tabs 01/03/24 04/07/24 Rx
acetaminophen 325 mg tablet 650 mg feeding tube Q6HPRN PRN 03/26/24 04/07/24 History
mild pain/fever>100.4
bisacodyl 10 mg rectal suppository 10 mg UT DAILYPRN PRN if no 03/26/24 04/07/24 History
(Dulcolax (bisacodyl)) results for MOM
loperamide 1 mg/5 mL oral liquid 2 mg feeding tube [id number] PRN 03/26/24 04/07/24 History
loose stools
magnesium hydroxide 400 mg/5 mL 30 ml feeding tube [id number] PRN if 03/26/24 04/07/24 History
oral suspension (Milk of Magnesia) no bm x 3 days
pantoprazole 40 mg granules 40 mg feeding tube BID 03/26/24 04/07/24 History
delayed-release for susp in packet Gastrointestinal Issue
(Protonix)
hydralazine 50 mg tablet 75 mg feeding tube Q8H Blood 03/28/24 04/07/24 History
Pressure
insulin aspart U-100 100 unit/mL 5 unit SC Q6H Diabetes 03/28/24 04/07/24 History
(3 mL) subcutaneous pen
insulin glargine 100 unit/mL 8 unit SC DAILY 04/07/24 04/07/24 History
subcutaneous solution
Review of Systems
-
Unable to obtain full review of systems at this time due to: Patient Non Verbal
All other systems: Negative unless noted
Physical Exam
Vital Signs
Vital Signs
Temp Pulse Resp BP Pulse Ox
97.9 F 83 16 151/63 100
04/08/24 07:55 04/08/24 07:55 04/08/24 07:55 04/08/24 07:55 04/08/24 07:55
Lab Results
eGFR 33.63 04/07/24 22:22
Albumin 2.4 g/dl (3.5-5.0) L 04/07/24 22:22
Laboratory Tests
03/30/24 04/07/24
05:45 22:22
WBC 22.5 H
Hgb 7.6 L 6.0 L*
Plt Count 534 H
Sodium 126 L
Potassium 4.8 3.9
BUN 43 H 31 H
Creatinine 2.5 H 1.6 H
Physical Exam
Patient is awake alert oriented and in no distress. Mood and affect could not be assessed, insight and judgment could not be assessed. Pupils are equal round and reactive to light, extraocular movements are intact, sclera were anicteric. Hearing
was normal, ears and nose are intact. Neck was supple with trachea midline and no thyromegaly. Heart was regular rate and rhythm without rubs. Lower extremities without edema. Lungs were clear to auscultation bilaterally and with normal excursion.
Abdomen was soft, nontender, with normal active bowel sounds, and no hepatosplenomegaly. Skin was without rash and with normal turgor.
Data Reviewed
-
Radiology: Image Personally Visualized and interpreted (Chest x-ray on 04/07/2024 by my reading shows no acute disease)
Labs: Labs Reviewed by me
Old Records: Reviewed
Assessment/Plan
-
Assessment:
ESRD on HD tunnel[facility] dialysis catheter[facility]
Acute on chronic anemia likely from upper GI bleed on anticoagulants
sacral decub wound
leucocytosis
Paroxysmal A-fib
Type 2 diabetes with hyperglycemia
Elevated transaminase
Dysphagia status post PEG tube
HTN�benign multidrug
Hx CVA with immobility, dysphagia
Seizure disorder
Dementia�severe
CAD prior NSTEMI
Hyponatremia
Plan:
follow Hgb
transfuse as needed
HD tomorrow
high dose LAURA with HD
Continue BP meds
Tube feeds on hold
Holding anticoagulation
[2024-04-08 11:41] LABS: Hematocrit 23.2 % (37.0-47.0); Mean Corp Hgb Conc. 34.5 g/dL (33.0-37.0); Mean Corpuscular Hgb 28.5 pg (27.0-31.0); Mean Corpuscular Volume 82.6 fL (81.0-99.0); Mean Platelet Volume 8.6 fL (7.4-10.4); Platelet Count 509 10^3/uL (130-400); Red Blood Cell Count 2.81 10^6/uL (4.20-5.40); Red Cell Dist. Width 16.5 % (11.5-14.5)
[2024-04-08 11:56] LABS: Blood Urea Nitrogen 35 mg/dl (7-17); Calcium 8.7 mg/dl (8.4-10.2); Carbon Dioxide 22 mmol/L (22-30); Chloride 93 mmol/L (98-107); Estimated Creatinine Clearance 21 ml/min; Glucose 189 mg/dl (70-99); Sodium 128 mmol/L (135-145); eGFR 25.73
[2024-04-08 12:18] LABS: Glucose - Point of Care 222 mg/dl (70-99)
[2024-04-08] MEDS: NOVOLOG FLEXPEN-MODERATE RESISTANCE 3 UNITS SC (12:19)
[2024-04-08 12:51] LABS: Hemoglobin 8.8 g/dL (12.0-16.0)
--- NOTE | 2024-04-08 14:35 | CON.ID ---
Consultation
-
Date/Time Consultation Requested: 6:06
Date/Time Consultation Performed: 04/08/24 14:35
Requesting Provider: Dr Staton
Performing Provider: Dr Frank
Reason for Consultation: fever, leukocytosis, suspected infected sacral decubitus ulcer, diabetic
Chief Complaint / Past History
Chief Complaint
fever and anemia
History of Present Illness
Ms Nettles is a 73 year old female with history of ESRD on HD via tunneled line, CVA with deficits, s/p PEG, known sacral decubitus ulcer with exposed bone present on arrival who presented here from nursing facility for fever, altered mental
status. Her sacral wound was notably malodorous. Of note with recent coffee ground residual from PEG tube. Not responding to questions on my exam
Since arrival here tmax 101.4, bp stable, wbc on arrival 22.5 today 25, hgb initially 6 now 8.8, plt 509, L shift is noted, na 128, k 4, cr 2.0, t bili 0.2, ast 44, alt 23, alk phos 175, 04/07 CXR: no acute CP process, 03/05 PEG tube check in place,
MRSA screen negative, blood cultures x2 in progress,
Past History
Additional Past Medical History:
ESRD on HD [facility]
left Chest wall catheter
CAD with NSTEMI
Anemia of chronic disease
DVT on AC
PAfib
HTN
seizures
CVA c/b aphasia
dysphagia with PEG tube in place
?h/o lung cancer
HTN on multiple meds
GERD
Hyponatremia
DM
Additional Past Surgical History:
PEG tube
Allergy History:
adhesive tape Allergy (Verified 04/07/24 21:17)
Unknown
codeine Allergy (Verified 04/07/24 21:17)
Unknown
oxycodone Allergy (Verified 04/07/24 21:17)
Unknown
tramadol Allergy (Verified 04/07/24 21:17)
Unknown
Medications Reviewed: Yes
Social History
Tobacco: Non-Smoker
Alcohol: None
Drug: None
Family History
Family History: Not Pertinent
Review of Systems
Review of Systems
unable to obtain due to the condition of the patient
Vital Signs
Temp Pulse Resp BP Pulse Ox
97.9 F 83 16 151/63 100
04/08/24 07:55 04/08/24 07:55 04/08/24 07:55 04/08/24 07:55 04/08/24 07:55
Physical Exam
Physical Exam
Constitutional: No Acute Distress
Cardiovascular: Regular Rate and S1/S2; Negative Murmur or Rub
Pulmonary: Clear and Symmetric; Negative Wheezes, Rales or Rhonchi
Gastrointestinal: Soft, Non Tender, Non Distended and Normal Bowel Sounds
Skin: Warm and Dry; Negative Rash or Jaundice
Wound: Other (large sacral wound with devitalized tissue, strong odor, visible bone/probe to bone)
Lines: HD Cath
Lab / Diagnostic Study Results
04/08/24 12:34
04/08/24 11:08
Abs Immat Gran (auto) 0.7 10^3/uL (0-0.05) H 04/07/24 22:22
Absolute Neuts (auto) 17.7 10^3/uL (1.4-6.5) H 04/07/24 22:22
Absolute Lymphs (auto) 2.2 10^3/uL (1.2-3.4) 04/07/24 22:22
Absolute Monos (auto) 1.4 10^3/uL (0.1-0.6) H 04/07/24 22:22
Absolute Basos (auto) 0.1 10^3/uL (0-0.2) 04/07/24 22:22
Immature Gran % 3.2 % (0-0.5) H 04/07/24 22:22
Neutrophils % 78.6 % (42.2-75.2) H 04/07/24 22:22
Lymphocytes % 9.5 % (20.5-51.1) L 04/07/24 22:22
Monocytes % 6.4 % (1.7-9.3) 04/07/24 22:22
Eosinophils % 1.6 % (0-6) 04/07/24 22:
Basophils % 0.4 % (0-2) 04/07/24 22:22
Lactic Acid 1.1 mmol/L (0.7-2.0) 04/07/24 22:22
Microbiology Results
Micro:
04/07/24 23:58 Blood Culture - Pending
Blood/Venous
04/08/24 03:57 MRSA Screen - Pending
Nose
04/08/24 00:44 Blood Culture - Pending
Blood/Venous
Assessment / Plan
Fever
Infected Sacral Decubitus Ulcer
ESRD on HD
- blood cultures x2
- mrsa screen pending - if negative would stop vancomycin
- sacral wound appear infected - there is exposed bone
- for possible debridement
- can continue vancomycin and zosyn for now as for SSTI
- treatment for possible osteomyelitis futile and actually counter productive (selecting for increasingly resistant isolates) unless bone can be permanently covered by tissue (most commonly with a flap procedure). She is unlikely to be a candidate
as she would be required to offload the wound continually for at least 1-2 months, esrd is a risk factor for poor wound healing, she is hypoalbuminemic. She would also likely require an ostomy placement to keep stool out of the wounds. Outpatient
plastic surgery consultation could be considered but I doubt surgery would be offered.
Prognosis grave in the medium term - recommend hospice
--- NOTE | 2024-04-08 15:25 | CM ---
CM spoke with Josefina/admissions and SNF DON
Pt is a LTC resident at [facility]
She is bedbound, hesham, total care, non verbal
Pt has a significant wound, HD MWF and peg tube/feeds
Noted multiple family members, is not the father of her dtr
SNF has approached family mutiple time regarding hospice
Requesting physicians address GOC with family
Resident alerted
Discharge Disposition- return [facility] for LTC
--- NOTE | 2024-04-08 17:21 | CON.GS ---
Medical History
-
Chief Complaint: Sacral wound
History of Present Illness:
Patient is a 73 yo F with a PMH of HTN, HLD, CAD c/b MS, A-fib (on Eliquis, LD > 24 hours), DVT/PE, NIDDM, ESRD on HD, seizure disorder, and CVA c/b dysphagia s/p PEG. Ms. Nettles has a known stage IV sacral decubitus ulcer which was last
debrided by myself on 02/19/2024. At that time she was found to have exposed bone. She has been off antibiotics currently on Vancomycin and Zosyn. She presented to from her group home with concerns for fevers and anemia. History is limited,
patient is non-verbal. There has been some malodorous drainage from her sacrum. No reports of issues with contamination of the wound.
Past Medical History
Past Medical History: Arrhythmias (Afib), CAD, CVA, HTN, Hypercholesterolemia, NIDDM, Renal Failure, Seizures and Other (DVT/PE)
Past Surgical History: Other (PEG, sacral debridement)
Social History
Tobacco: Non-Smoker
Alcohol: None
Drug: None
Family History
Family History: Reviewed & Not Pertinent
Allergies / Home Medications
Allergy/AdvReac Type Severity Reaction Status Date / Time
adhesive tape Allergy Unknown Verified 04/07/24 21:17
codeine Allergy Unknown Verified 04/07/24 21:17
oxycodone Allergy Unknown Verified 04/07/24 21:17
tramadol Allergy Unknown Verified 04/07/24 21:17
�Medication �Instructions �Recorded �Confirmed �Type
amlodipine 10 mg tablet (Norvasc) 10 mg feeding tube DAILY Blood 12/27/23 04/07/24 History
Pressure
atorvastatin 20 mg tablet (Lipitor) 20 mg feeding tube HS High 12/27/23 04/07/24 History
Cholesterol
clonidine 0.1 mg/24 hr weekly 1 patch transdermal TH Blood 12/27/23 04/07/24 History
transdermal patch Pressure
lacosamide 10 mg/mL oral solution 100 mg feeding tube BID Seizures 12/27/23 04/07/24 History
(Vimpat)
apixaban 5 mg tablet (Eliquis) 5 mg feeding tube BID Blood Clot 01/03/24 04/07/24 Rx
Prevention/Tx #1 tab
losartan 100 mg tablet 100 mg feeding tube DAILY #0 tabs 01/03/24 04/07/24 Rx
acetaminophen 325 mg tablet 650 mg feeding tube Q6HPRN PRN 03/26/24 04/07/24 History
mild pain/fever>100.4
bisacodyl 10 mg rectal suppository 10 mg GA DAILYPRN PRN if no 03/26/24 04/07/24 History
(Dulcolax (bisacodyl)) results for MOM
loperamide 1 mg/5 mL oral liquid 2 mg feeding tube [id number] PRN 03/26/24 04/07/24 History
loose stools
magnesium hydroxide 400 mg/5 mL 30 ml feeding tube [id number] PRN if 03/26/24 04/07/24 History
oral suspension (Milk of Magnesia) no bm x 3 days
pantoprazole 40 mg granules 40 mg feeding tube BID 03/26/24 04/07/24 History
delayed-release for susp in packet Gastrointestinal Issue
(Protonix)
hydralazine 50 mg tablet 75 mg feeding tube Q8H Blood 03/28/24 04/07/24 History
Pressure
insulin aspart U-100 100 unit/mL 5 unit SC Q6H Diabetes 03/28/24 04/07/24 History
(3 mL) subcutaneous pen
insulin glargine 100 unit/mL 8 unit SC DAILY Diabetes 04/07/24 04/07/24 History
subcutaneous solution
Review of Systems
-
A 10 point review of systems was completed, and was negative except as per HPI.
Physical Exam
Vital Signs
Temp Pulse Resp BP Pulse Ox
98.0 F 72 18 122/43 98
04/08/24 15:31 04/08/24 15:31 04/08/24 15:31 04/08/24 15:31 04/08/24 15:31
04/07/24 04/08/24 04/09/24
06:59 06:59 06:59
Actual Weight 70.715 kg 70.715 kg
Lab Results
04/08/24 12:34
04/08/24 11:08
WBC 25.0 10^3/uL (4.8-10.8) H 04/08/24 11:08
Hgb 8.8 g/dL (12.0-16.0) L 04/08/24 12:34
Hct 23.2 % (37.0-47.0) L 04/08/24 11:08
Plt Count 509 10^3/uL (130-400) H 04/08/24 11:08
Abs Immat Gran (auto) 0.7 10^3/uL (0-0.05) H 04/07/24 22:22
Neutrophils % 78.6 % (42.2-75.2) H 04/07/24 22:22
Physical Exam
General: No Apparent Distress
Respiratory: Non Labored Respirations
Cardiac: Regular Rhythm
Rectal: Other (Large stage IV sacral decubitus ulcer, 80-90% of wound with healthy beefy granulation tissue, several small as of necrotic and infected soft tissue including area immediately overlying sacrum with exposed bone, no discomfort, no
active purulent drainage, no surrounding erythema/induration)
Musculoskeletal: No Edema
Neuro: Nonfocal/Grossly Intact
Data Reviewed
-
Labs: Labs Reviewed by me
Assessment / Plan
-
Patient is a 73 yo F p/w fevers, anemia, and a chronic stage IV sacral decubitus ulcer
Small areas of necrotic and infected material necessitating debridement. Previous discussions with patient's daughter and medical decision maker regarding the natural history and pathophysiology of sacral decubitus ulcers. This is likely to be a
chronic issue for Ms. Nettles with little to no hopes of complete healing. Her only chance of complete healing would involve a large soft tissue flap reconstruction by Plastic Surgery. She is a very poor operative candidate from that standpoint.
Attempted to call daughter to further discuss current options for management. Tentatively added onto the OR schedule tomorrow for operative debridement pending this discussion. Alternative option which would be certainly reasonable would be
Hospice.
-- Need to discuss goals of care and treatment options with family, attempted to call daughter with no response
-- Tentatively added to OR schedule tomorrow
-- Would strongly consider Hospice
-- NPO
-- Continue to hold PO therapeutic anticoagulation
[2024-04-08 17:58] LABS: Glucose - Point of Care 162 mg/dl (70-99)
[2024-04-08] MEDS: LIPITOR 20 MG TUBE (20:56)
[2024-04-09 00:14] LABS: Glucose - Point of Care 123 mg/dl (70-99)
[2024-04-09] MEDS: NOVOLOG FLEXPEN-MODERATE RESISTANCE SC ×4 (02:17→18:05)
[2024-04-09 05:42] VITALS: BMI 27.4
[2024-04-09 05:54] LABS: Glucose - Point of Care 135 mg/dl (70-99)
[2024-04-09 07:00] VITALS: BP 154/47
[2024-04-09 07:26] VITALS: BMI 27.4
[2024-04-09] MEDS: COZAAR TUBE (07:27)
[2024-04-09] MEDS: APRESOLINE TUBE (07:28)
[2024-04-09] MEDS: NORVASC TUBE (07:28)
--- NOTE | 2024-04-09 07:28 | W.PN.HOSP.TC ---
Documented by User: Romero Dalton MD, Resident 04/09/24 12:54
Today's Communication/Plan
-
N.p.o.
Hold therapeutic anticoagulation
Possible debridement today.
Continue antibiotics
Assessment / Plan
Assessment / Plan
IMPRESSION:
69-year-old 3-year-old female with extensive past medical history notable for ESRD, coming in with fever and anemia from [address] [place] [address]. She was recently discharged 1 week ago. On exam she is otherwise well-appearing with a rather
large decubitus sacral ulcer with purulent and bloody drainage. She is febrile, but hemodynamically stable. No pulmonary findings. Marked leukocytosis.
Assessment/plan:
#Sepsis secondary to sacral wound infection.
-Large sacral stage IV decubitus ulcer with purulent necrotic tissue and exposed coccyx; posterior thigh/ischium stage III ulcer.
-Blood cultures pending.
-Continue vancomycin and Zosyn.
-Surgery following.
-Wound consult.
-ID following.
-N.p.o.
-Pressure redistribution devices.
-C discussion/consent for surgery with daughter (medical POA) unsuccessful, wound debridement consult.
-Patient appropriate for hospice.
Anemia
-Hb 6.0 on admission, 8.8 s/p 1U PRBC.
-No signs of acute GI loss, most likely chronic.
-Hemoccult testing negative.
-Eliquis discontinued until Hb stable.
#Hyponatremia/ESRD
-Improving.
-Continue hemodialysis M/W/F
#Type 2 diabetes mellitus
-Hold home Lantus and aspart for NPO.
-Sliding scale Q6
#Essential hypertension
-Continue med
#Paroxysmal A-fib
-Rate controlled
-Hold Eliquis with anemia.
#TubeFeeding
-Inspector Multifocal Lens consult
DVT PPX - heparin sq while holding eliquis
Code status - Full code
Anticipated Discharge: > 48 hours
Subjective/Interval History
-
Date of Service: April 09, 2024
Patient was seen and examined by me at bedside receiving HD. She was also scheduled for I&D today for large sacral ulcer. Patient is not vocal.
Objective Data
-
Labs:
Laboratory Results
04/09/24
06:00
WBC Pending
Hgb Pending
Hct Pending
Plt Count Pending
Sodium Pending
Potassium Pending
Chloride Pending
Carbon Dioxide Pending
BUN Pending
Creatinine Pending
Glucose Pending
Calcium Pending
Vital Signs:
Vital Signs
Temp Pulse Resp BP Pulse Ox
98.2 F 70 18 154/47 99
04/09/24 07:00 04/09/24 07:00 04/09/24 07:00 04/09/24 07:00 04/09/24 07:00
I&O
04/08/24 04/09/24 04/10/24
06:59 06:59 06:59
Intake Total 250 / 250 0 / 0
Balance 250 / 250 0 / 0
Review of Systems
-
Unable to obtain full review of systems at this time due to: Patient Non-verbal
Physical Exam
-
General: No Apparent Distress and Comfortable
Respiratory: Clear to Auscultation; Negative Wheezes, Rhonchi or Crackles
Cardiac: Regular Rhythm and S1/S2
GI: Soft
Skin: Warm and Decubitus Ulcers (Large sacral decubitus ulcer)
Neuro: Awake
Psych: Calm
Data Reviewed
-
Diagnostic Radiology: Image personally visualized and interpreted, Report Reviewed by me and Discussed with Physician
Labs: Labs Reviewed by me and Discussed with Physician
Old Records: Reviewed

Documented by User: Hernesto Fong DO 04/09/24 13:10
Today's Communication/Plan
-
N.p.o.
Hold therapeutic anticoagulation
Possible debridement today.
Continue antibiotics
Speak with family for GOC
[2024-04-09] MEDS: DAKIN'S SOLUTION 0.125% 1/4 STRENGTH TOPICAL (08:37)
[2024-04-09] MEDS: RETACRIT 10000 UNITS IV (08:45)
[2024-04-09] MEDS: RETACRIT 2000 UNITS IV (08:48)
[2024-04-09] MEDS: ZOSYN 50 IV ×3 (08:51→15:08)
--- NOTE | 2024-04-09 09:20 | W.PN.UPDATE ---
Update Note
Progress Note Update
Attempted to call daughter. Call pushed immediately to voicemail. Unable to coordinate and legally consented for operative procedure. Please let General Surgery know if family/medical decision maker is available to help coordinate care. As noted
by previous documentation, Hospice is reasonable alternative.
[2024-04-09 09:38] LABS: Hematocrit 21.5 % (37.0-47.0); Hemoglobin 7.2 g/dL (12.0-16.0); Mean Corp Hgb Conc. 33.5 g/dL (33.0-37.0); Mean Corpuscular Hgb 27.8 pg (27.0-31.0); Mean Platelet Volume 8.8 fL (7.4-10.4); Platelet Count 529 10^3/uL (130-400); Red Blood Cell Count 2.59 10^6/uL (4.20-5.40); Red Cell Dist. Width 16.9 % (11.5-14.5); White Blood Cell Count 18.7 10^3/uL (4.8-10.8)
[2024-04-09 09:48] LABS: Chloride 92 mmol/L (98-107); Potassium 3.7 mmol/L (3.5-5.1); Sodium 130 mmol/L (135-145)
[2024-04-09 09:50] LABS: Blood Urea Nitrogen 43 mg/dl (7-17); Calcium 8.5 mg/dl (8.4-10.2); Carbon Dioxide 23 mmol/L (22-30); Estimated Creatinine Clearance 18 ml/min; Glucose 118 mg/dl (70-99); Magnesium 2.1 mg/dl (1.6-2.3); eGFR 18.78
[2024-04-09] MEDS: VIMPAT 100 MG TUBE ×2 (09:52→21:40)
[2024-04-09] MEDS: HEPARIN 5000 UNITS SC ×2 (09:52→15:09)
[2024-04-09] MEDS: HYDROPHOR 1 APPLIC TOPICAL (09:53)
[2024-04-09 09:58] LABS: Total Iron Binding Capacity 138 ug/dl (265-497)
[2024-04-09 10:03] LABS: Iron < 20 ug/dl (37-170)
[2024-04-09 10:07] LABS: C-Reactive Protein > 270.00 mg/L (0.0-10.00)
[2024-04-09 10:38] LABS: Creatine Phosphokinase 53 U/L (30-135)
[2024-04-09 10:47] LABS: Vancomycin Random 15.1 ug/ml
--- NOTE | 2024-04-09 11:06 | PHA.VAN.FU ---
Vancomycin Assessment / Plan
- Assessment
Hemodialysis Schedule: MWF
- Assessment - Therapeutic Drug Monitoring
Random Level: 15.1 - drawn ~ 28.5H after 2g loading dose (level is pre-HD)
- Dosing Plan
Dosing by Level: Re-dose today (Vanc 750mg, 10mg/kg)
- Monitoring Plan
No level(s) ordered at this time: consider pre-HD level Sunday
- Follow Up
Pharmacy will continue to follow.
Vancomycin Follow UP
- -
Patient Age: 73
Patient Sex: Female
Vancomycin Day #: 2
Indication: Skin And Soft Tissue
Requesting Provider: Dr. Staton / Zac
Pertinent Antimicrobial Allergies:
no pertinent antibiotic allergies
Height / Weight:
Height 5 ft 4 in
Actual Weight 72.235 kg
Pertinent Past Medical History: ESRD on HD MWF, DM II
- Vital Signs / Lab Results
Temp Pulse Resp BP Pulse Ox
98.2 F 70 18 154/47 99
04/09/24 07:00 04/09/24 07:00 04/09/24 07:00 04/09/24 07:00 04/09/24 07:00
Lab Results - Hematology
04/07/24 04/08/24 04/09/24
22:22 11:08 09:22
WBC 22.5 H 25.0 H 18.7 H
Lab Results - Chemistry
04/07/24 04/08/24 04/09/24
22:22 11:08 09:22
BUN 31 H 35 H 43 H
Creatinine 1.6 H 2.0 H 2.6 H
Estimated Creat Clear 21 18
Albumin 2.4 L
04/07/24
22:22
Lactic Acid 1.1
Microbiology Results
04/07/24 23:58 Blood Culture - Preliminary
Blood/Venous Positive culture in progress
Gram Stain - Final
04/08/24 03:57 MRSA Screen - Final
Nose No Methicillin Resistant Staphylococcus aureus isolated.
04/08/24 00:44 Blood Culture - Preliminary
Blood/Venous No Growth in 24 hours- Final report to follow
Therapeutic Drug Monitoring
Random Vancomycin 15.1 ug/ml 04/09/24 09:22
[2024-04-09] MEDS: VANCOCIN 150 IV (11:24)
--- NOTE | 2024-04-09 11:50 | WOUNDNOTE ---
FABIENNE RUIZ NOTE: Confirmed patient is on a [facility] air bed and using Tru[employer]ue lite offloading heel boots.
--- NOTE | 2024-04-09 11:51 | WOUNDNOTE ---
FABIENNE RN NOTE: Confirmed patient is on a [facility] air bed and using [employer]ue lite offloading heel boots. Reviewed Dr. Vergara's note for possible OR debridement vs Hospice. Will follow and update wound care as needed.
[2024-04-09] MEDS: HEPARIN 4000 UNITS INTRACATH (11:54)
[2024-04-09 12:15] LABS: Glucose - Point of Care 119 mg/dl (70-99)
--- NOTE | 2024-04-09 12:38 | W.PN.NEPH.HD ---
Assessment
-
pt seen during HD
vitals stable
CVC functions well , follow bld cxs
surg follows for decub wound
abx per ID
high dose LAURA for anemia, follow h/h-decreasing
Progress Note - Hemodialysis
-
Date of Service: April 09, 2024
Duration: 30 minutes and 3 hours
Potassium Bath: 2
Calcium Bath: 2.5
Opti-Dialyzer: 160
Ultrafiltration: Other (1.5-2kg)
Blood Flow: 400
Dialysate Flow: 600
Heparin: no
EPO: [id number]
[2024-04-09 15:00] VITALS: BP 135/45
[2024-04-09] MEDS: APRESOLINE 75 MG TUBE (15:09)
--- NOTE | 2024-04-09 16:29 | W.PN.ID1 ---
Date of Service
Date of Service: April 09, 2024
Today's Communication
Prognosis grave in the medium term - recommend hospice
stopped vancomycin
continue zosyn
Assessment / Plan
Fever
Infected Sacral Decubitus Ulcer
ESRD on HD
- blood cultures x2 04/07 and 04/08 one set with probable CONS - most likely contaminant
- repeat blood cultures x2
- mrsa screen negative - stopped vancomycin
- sacral wound appear infected - there is exposed bone
- for possible debridement
- can continue zosyn for now as for SSTI
- treatment for possible osteomyelitis futile and actually counter productive (selecting for increasingly resistant isolates) unless bone can be permanently covered by tissue (most commonly with a flap procedure). She is unlikely to be a candidate
as she would be required to offload the wound continually for at least 1-2 months, esrd is a risk factor for poor wound healing, she is hypoalbuminemic. She would also likely require an ostomy placement to keep stool out of the wounds. Outpatient
plastic surgery consultation could be considered but I doubt surgery would be offered.
Prognosis grave in the medium term - recommend hospice
Chief Complaint
-: Other (sacral decubitus ulcer and possible osteomyelitis)
Subjective / Review of Systems
afebrile
bp stable
possible debridement tomorrow
Vital Signs / Physical Exam
Vital Signs
Vital Signs
Temp Pulse Resp BP Pulse Ox
98.3 F 80 16 135/45 99
04/09/24 15:00 04/09/24 15:00 04/09/24 15:00 04/09/24 15:00 04/09/24 15:00
Physical Exam
Constitutional: No Acute Distress, Chronically Ill and Non-toxic
Cardiovascular: Regular Rate
Pulmonary: Symmetric and Non Labored
Gastrointestinal: Non Distended
Neurological: Negative Awake
Objective Data
Lab Data
Lab Results
04/09/24 09:22
04/09/24 09:22
Estimated Creat Clear 18 ml/min 04/09/24 09:22
Lactic Acid 1.1 mmol/L (0.7-2.0) 04/07/24 22:22
Total Bilirubin 0.2 mg/dl (0.2-1.3) 04/07/24 22:22
AST 44 U/L (14-36) H 04/07/24 22:22
ALT 23 U/L (0-35) 04/07/24 22:22
Alkaline Phosphatase 175 U/L (38-126) H 04/07/24 22:22
C-Reactive Protein > 270.00 mg/L (0.0-10.00) H 04/09/24 09:22
Most recent labs reviewed.
Micro Results:
04/07/24 23:58 Blood Culture - Preliminary
Blood/Venous Positive culture in progress
Gram Stain - Final
04/08/24 03:57 MRSA Screen - Final
Nose No Methicillin Resistant Staphylococcus aureus isolated.
04/08/24 00:44 Blood Culture - Preliminary
Blood/Venous No Growth in 24 hours- Final report to follow
[2024-04-09 17:56] LABS: Glucose - Point of Care 139 mg/dl (70-99)
[2024-04-09] MEDS: LIPITOR 20 MG TUBE (21:41)
[2024-04-09 23:45] VITALS: BP 135/43
[2024-04-10] MEDS: APRESOLINE 75 MG TUBE ×3 (00:38→15:17)
[2024-04-10] MEDS: HEPARIN 5000 UNITS SC ×3 (00:39→15:17)
[2024-04-10] MEDS: ZOSYN 50 IV ×3 (00:40→15:17)
[2024-04-10] MEDS: NOVOLOG FLEXPEN-MODERATE RESISTANCE SC ×4 (00:43→17:17)
[2024-04-10 00:44] LABS: Glucose - Point of Care 121 mg/dl (70-99)
[2024-04-10 05:00] LABS: Hematocrit 21.7 % (37.0-47.0); Hemoglobin 7.1 g/dL (12.0-16.0); Mean Corp Hgb Conc. 32.7 g/dL (33.0-37.0); Mean Corpuscular Hgb 27.4 pg (27.0-31.0); Mean Corpuscular Volume 83.8 fL (81.0-99.0); Mean Platelet Volume 8.8 fL (7.4-10.4); Platelet Count 531 10^3/uL (130-400); Red Blood Cell Count 2.59 10^6/uL (4.20-5.40); Red Cell Dist. Width 17.1 % (11.5-14.5); White Blood Cell Count 16.8 10^3/uL (4.8-10.8)
[2024-04-10 05:14] LABS: Blood Urea Nitrogen 22 mg/dl (7-17); Calcium 8.4 mg/dl (8.4-10.2); Carbon Dioxide 26 mmol/L (22-30); Chloride 98 mmol/L (98-107); Estimated Creatinine Clearance 25 ml/min; Glucose 115 mg/dl (70-99); Sodium 135 mmol/L (135-145); eGFR 27.37
[2024-04-10 05:56] LABS: Glucose - Point of Care 115 mg/dl (70-99)
[2024-04-10 06:00] VITALS: BMI 27.0
[2024-04-10] MEDS: DAKIN'S SOLUTION 0.125% 1/4 STRENGTH 1 ML TOPICAL (07:30)
[2024-04-10] MEDS: VIMPAT 100 MG TUBE ×2 (07:30→22:23)
[2024-04-10] MEDS: NORVASC 10 MG TUBE (07:30)
[2024-04-10] MEDS: COZAAR 100 MG TUBE (07:30)
[2024-04-10] MEDS: HYDROPHOR 1 APPLIC TOPICAL (07:31)
[2024-04-10 07:59] VITALS: BP 138/44
[2024-04-10] MEDS: CATAPRES-TTS-1 0.1 MG TRANSDERM (09:58)
--- NOTE | 2024-04-10 11:53 | PN.CDI ---
CDI
- -
CDI:
Physician Documentation Request
Admit Date: 04/08/24 02:56
Dear Doctor Sha,
04/08 Wound Care Note: 'R ear rims with healing stage 2 PI, dry and red, L intact. L Heel with dried up blister that peeled off with cleaning, revealing small stage 3 PI medially, otherwise pink intact skin.'
Physician documentation of the type and location of wounds is required for compliant documentation. Based on the above clinical findings and your assessment, please provide the following in your progress note:
1. Location of the ulcer/wound, including laterality.
2. Type (etiology) of ulcer/wound:
- Diabetic ulcer
- Arterial (ischemic) ulcer
- Traumatic wound
- Venous stasis ulcer
- Pressure (decubitus) ulcer
- Non-healing surgical wound
- Other
- Unable to determine
3. For a non-pressure ulcer, please indicate the depth/severity:
- Limited to the breakdown of skin
- With fat layer exposed
- With necrosis of muscle
- With necrosis of bone
- Other
- Unable to determine
4. If a pressure ulcer, please also include the stage* of the ulcer:
- Stage 1 - Skin intact, non-blanchable redness
- Stage 2 - Partial thickness loss of dermis, includes intact or open blister
- Stage 3 - Full thickness tissue not including bone, tendon or muscle
- Stage 4 - Full thickness tissue loss, including exposed bone, tendon or muscle
- Unstageable - Full thickness loss in which the base of the ulcer is covered by slough (yellow, morrisno, qureshi, green or brown) and/or eschar (morrison, brown or black) in the wound bed.
- Unable to determine
Use of terms such as suspected, likely, concern for, or probable (associated with a specific diagnosis that is being evaluated, monitored, or treated as if it exists) are acceptable and can be coded in the inpatient setting, when documented at the
time of discharge.
Thank you,
Charlotte Smith RN, BSN
CDI Specialist
Available via [facility] text
Please use your independent medical judgment in providing your response.
*Source: National Pressure Ulcer Advisory Panel (NPUAP)
[2024-04-10 11:59] LABS: Glucose - Point of Care 135 mg/dl (70-99)
--- NOTE | 2024-04-10 12:08 | PN.CDI ---
CDI
- -
CDI:
Physician Documentation Request
Admit Date: 04/08/24 02:56
Dear Doctor Sha,
Patient admitted for sepsis.
04/08 Hospitalist PN: 'Her hemoglobin did improve to 8.8 following 1 unit of PRBC. Suspected blood loss anemia with large stage IV sacral wound, Hemoccult testing negative...Anemia -Hb 6.0 on admission, 8.8 s/p 1U PRBC. -No signs of acute GI loss,
most likely chronic.'
Based on the above, could you clarify, in your progress note, which of the following is the most likely type of anemia you are evaluating, monitoring and/or treating?
Acute blood loss anemia
Acute blood loss anemia with baseline chronic anemia
Anemia of chronic disease - indicate if neoplastic disease, CKD or other
Other
Use of terms such as suspected, likely, concern for, or probable (associated with a specific diagnosis that is being evaluated, monitored, or treated as if it exists) are acceptable and can be coded in the inpatient setting, when documented at the
time of discharge.
Thank you,
Charlotte Smith RN, BSN
CDI Specialist
Available via [place] text
Please use your independent medical judgment in providing your response.
--- NOTE | 2024-04-10 12:18 | W.PN.HOSP.TC ---
Today's Communication/Plan
-
Continue trying to contact daughter
Continue antibiotics
Wound care
Assessment / Plan
Assessment / Plan
IMPRESSION:
69-year-old 3-year-old female with extensive past medical history notable for ESRD, coming in with fever and anemia from [address] [place] [address]. She was recently discharged 1 week ago. On exam she is otherwise well-appearing with a rather
large decubitus sacral ulcer with purulent and bloody drainage. She is febrile, but hemodynamically stable. No pulmonary findings. Marked leukocytosis.
Assessment/plan:
#Sepsis secondary to sacral wound infection.
-Large sacral stage IV decubitus ulcer with purulent necrotic tissue and exposed coccyx; posterior thigh/ischium stage III ulcer.
-Blood cultures pending.
-Continue vancomycin and Zosyn.
-Surgery following.
-Wound consult.
-ID following.
-N.p.o.
-Pressure redistribution devices.
-GOC discussion with daughter (medical POA) unsuccessful, daughter not responding to calls. Will continue calling.
-Patient appropriate for hospice.
Anemia
-Hb 6.0 on admission, 7.1 s/p 1U PRBC.
-No signs of acute GI loss, most likely anemia of chronic disease.
-Hemoccult testing negative.
-Eliquis discontinued until Hb stable.
#Hyponatremia/ESRD
-Improving.
-Continue hemodialysis M/W/F
#Type 2 diabetes mellitus
-Hold home Lantus and aspart for NPO.
-Sliding scale Q6
#Essential hypertension
-Continue med
#Paroxysmal A-fib
-Rate controlled
-Hold Eliquis with anemia.
# Right ear rims with healing stage 2 PI; 3 PI left heel healing blisters-from pressure
-Dry, healing, skin intact.
#TubeFeeding
-Electronics Commodity Manager consult
DVT PPX - heparin sq while holding eliquis
Code status - Full code
Anticipated Discharge: > 48 hours
Subjective/Interval History
-
Date of Service: April 10, 2024
Objective Data
-
Labs:
Laboratory Results
04/10/24
04:11
WBC 16.8 H
Hgb 7.1 L
Hct 21.7 L
Plt Count 531 H
Sodium 135
Potassium 4.0
Chloride 98
Carbon Dioxide 26
BUN 22 H
Creatinine 1.9 H
Glucose 115 H
Calcium 8.4
Vital Signs:
Vital Signs
Temp Pulse Resp BP Pulse Ox
98.3 F 75 16 138/44 98
04/10/24 07:59 04/10/24 07:59 04/10/24 07:59 04/10/24 07:59 04/10/24 07:59
I&O
04/09/24 04/10/24 04/11/24
06:59 06:59 06:59
Intake Total 0 / 0 0 / 0
Balance 0 / 0 0 / 0
--- NOTE | 2024-04-10 12:20 | W.PN.UPDATE ---
Update Note
Progress Note Update
I was able to speak with the patient's , Magda, number listed in chart. I updated him on the patient's condition and prognosis. I spoke with him about how there is no reasonable option to treat her significant stage IV pressure injury
with superimposed infection. Antibiotic treatment is futile due to inability to perform source control. Furthermore, surgical approach is not feasible as she does not have the functional capacity to adhere with pressure offloading protocol
following procedure. She also would have low probability of adequate wound healing due to her nutritional status, hypoalbuminemia and reliance on PEG feeds. I mentioned that comfort based measures and hospice would be the best path forward to
limit further suffering. He was agreeable, hospice consult placed.
--- NOTE | 2024-04-10 12:22 | W.PN.NEPH.PH ---
Today's Communication / Plan
-
HD tomorrow
Assessment/Plan
-
Assessment:
ESRD on HD tunneled dialysis catheter, [facility] l[facility]
Acute on chronic anemia likely from upper GI bleed on anticoagulants
sacral decub wound
leucocytosis
Paroxysmal A-fib
Type 2 diabetes with hyperglycemia
Elevated transaminase
Dysphagia status post PEG tube
HTN�benign multidrug
Hx CVA with immobility, dysphagia
Seizure disorder
Dementia�severe
CAD prior NSTEMI
Hyponatremia
Plan:
follow Hgb
transfuse as needed
HD tomorrow
high dose LAURA with HD
bp stable , cont same meds
abx per ID
poor prognosis
-
-
Date of Service: April 10, 2024
CC / HPI / ROS
-
Chief Complaint:
ESRD
History of Present Illness:
hb low 7.1, WBC decreasing slowly
wt stable
Review of Systems:
non verbal
no fever
Labs
-
Labs:
WBC 16.8 10^3/uL (4.8-10.8) H 04/10/24 04:11
RBC 2.59 10^6/uL (4.20-5.40) L 04/10/24 04:11
Hgb 7.1 g/dL (12.0-16.0) L 04/10/24 04:11
Hct 21.7 % (37.0-47.0) L 04/10/24 04:11
Plt Count 531 10^3/uL (130-400) H 04/10/24 04:11
Sodium 135 mmol/L (135-145) 04/10/24 04:11
Potassium 4.0 mmol/L (3.5-5.1) 04/10/24 04:11
Chloride 98 mmol/L (98-107) 04/10/24 04:11
Carbon Dioxide 26 mmol/L (22-30) 04/10/24 04:11
BUN 22 mg/dl (7-17) H 04/10/24 04:11
Creatinine 1.9 mg/dL (0.6-1.0) H 04/10/24 04:11
eGFR 27.37 04/10/24 04:11
Glucose 115 mg/dl (70-99) H 04/10/24 04:11
Calcium 8.4 mg/dl (8.4-10.2) 04/10/24 04:11
Albumin 2.4 g/dl (3.5-5.0) L 04/07/24 22:22
Physical Exam
-
Vital Signs:
Vital Signs
Temp Pulse Resp BP Pulse Ox
98.3 F 75 16 138/44 98
04/10/24 07:59 04/10/24 07:59 04/10/24 07:59 04/10/24 07:59 04/10/24 07:59
Cardiovascular:: Regular rate and rhythm
Respiratory:: Bilateral: CTA
Lung Excursion:: Normal
Abdomen:: Nontender and Soft
Extremity Edema:: None: Bilateral: (trace)
Castañeda Catheter: No
--- NOTE | 2024-04-10 12:37 | HOSPNOTE ---
I called spouse and had to leave a message. Will await a call back.
[2024-04-10 15:35] VITALS: BP 124/47
--- NOTE | 2024-04-10 17:19 | W.PN.ID1 ---
Date of Service
Date of Service: April 10, 2024
Today's Communication
patient to transition to hospice
stopped antibiotics
ID service will no longer actively follow this patient please recall for further questions
Assessment / Plan
Fever
Infected Sacral Decubitus Ulcer
ESRD on HD
patient to transition to hospice
stopped antibiotics
ID service will no longer actively follow this patient please recall for further questions
Chief Complaint
-: Other (sacral decubitus ulcer and possible osteomyelitis)
Subjective / Review of Systems
afebrile
bp stable
tolerating current therapies
Vital Signs / Physical Exam
Vital Signs
Vital Signs
Temp Pulse Resp BP Pulse Ox
98.8 F 74 16 124/47 100
04/10/24 15:35 04/10/24 15:35 04/10/24 15:35 04/10/24 15:35 04/10/24 15:35
Physical Exam
Constitutional: No Acute Distress
Cardiovascular: Regular Rate
Pulmonary: Symmetric and Non Labored
Gastrointestinal: Non Distended
Neurological: Awake
Psychological: Calm
Objective Data
Lab Data
Lab Results
04/10/24 04:11
04/10/24 04:11
Estimated Creat Clear 25 ml/min 04/10/24 04:11
Lactic Acid 1.1 mmol/L (0.7-2.0) 04/07/24 22:22
Total Bilirubin 0.2 mg/dl (0.2-1.3) 04/07/24 22:22
AST 44 U/L (14-36) H 04/07/24 22:22
ALT 23 U/L (0-35) 04/07/24 22:22
Alkaline Phosphatase 175 U/L (38-126) H 04/07/24 22:22
C-Reactive Protein > 270.00 mg/L (0.0-10.00) H 04/09/24 09:22
Most recent labs reviewed.
Micro Results:
04/10/24 06:46 Blood Culture - Pending
Blood/Venous
04/07/24 23:58 Blood Culture - Preliminary
Blood/Venous Positive culture in progress
Gram Stain - Final
04/10/24 05:54 Blood Culture - Pending
Blood/Venous
04/08/24 00:44 Blood Culture - Preliminary
Blood/Venous No Growth in 48 hours- Final report to follow
04/08/24 03:57 MRSA Screen - Final
Nose No Methicillin Resistant Staphylococcus aureus isolated.
[2024-04-10 17:45] LABS: Glucose - Point of Care 129 mg/dl (70-99)
[2024-04-10] MEDS: LIPITOR 20 MG TUBE (22:23)
[2024-04-10 23:35] VITALS: BP 141/41
[2024-04-11 00:11] LABS: Glucose - Point of Care 123 mg/dl (70-99)
[2024-04-11] MEDS: HEPARIN 5000 UNITS SC ×3 (01:08→15:47)
[2024-04-11] MEDS: NOVOLOG FLEXPEN-MODERATE RESISTANCE SC ×4 (01:08→18:15)
[2024-04-11] MEDS: APRESOLINE 75 MG TUBE ×2 (01:12→15:47)
[2024-04-11 05:40] LABS: Glucose - Point of Care 123 mg/dl (70-99)
[2024-04-11 06:00] VITALS: BMI 27.1
[2024-04-11 07:50] VITALS: BP 143/47
[2024-04-11 08:16] LABS: Hematocrit 23.4 % (37.0-47.0); Hemoglobin 7.6 g/dL (12.0-16.0); Mean Corp Hgb Conc. 32.5 g/dL (33.0-37.0); Mean Corpuscular Hgb 26.9 pg (27.0-31.0); Mean Corpuscular Volume 82.7 fL (81.0-99.0); Mean Platelet Volume 8.5 fL (7.4-10.4); Platelet Count 588 10^3/uL (130-400); Red Blood Cell Count 2.83 10^6/uL (4.20-5.40); Red Cell Dist. Width 17.4 % (11.5-14.5); White Blood Cell Count 15.6 10^3/uL (4.8-10.8)
[2024-04-11 08:34] LABS: Blood Urea Nitrogen 30 mg/dl (7-17); Calcium 8.9 mg/dl (8.4-10.2); Carbon Dioxide 24 mmol/L (22-30); Chloride 98 mmol/L (98-107); Estimated Creatinine Clearance 16 ml/min; Glucose 121 mg/dl (70-99); Potassium 3.6 mmol/L (3.5-5.1); Sodium 137 mmol/L (135-145); eGFR 15.82
[2024-04-11] MEDS: FLEXBUMIN 25% FOR HEMODIALYSIS 12.5 GRAMS IV ×2 (08:45→10:07)
[2024-04-11] MEDS: VIMPAT 100 MG TUBE ×2 (08:48→20:29)
[2024-04-11] MEDS: RETACRIT 2000 UNITS IV (09:06)
[2024-04-11] MEDS: RETACRIT 10000 UNITS IV (09:07)
--- NOTE | 2024-04-11 09:52 | CM ---
Addendum entered by Delaney العلي RN 04/11/24 11:26:
Phone call to Art ; left message on cell phone requesting callback today re; hospice and d/c plans.
Original Note:
Patient from [facility] with Hx ESRD on HD with Dx Sepsis secondary to sacral wound infection, anemia. NPO. Per nursing assessment; confused. Seen by wound care nurse.
CM Consult: Hospice
Attempted to reach Ivone by phone; no answer x2 and no voicemail.
Sent text to requesting he contact CM.
Noting spoke with Dr Fong and he agreed to hospice.
Spoke with [facility]; referral placed.
Spoke with [facility]; confirmed that they have a contract with Hospice. They are wondering if patient would be able to stay here with hospice. The for report [phone], fax [phone].
Plan continued CM efforts to reach about return to SNF with Hospice - will need IMM.
Plan [facility] with Hospice once arranged.
--- NOTE | 2024-04-11 10:29 | W.PN.HOSP.TC ---
Today's Communication/Plan
-
Hospice evaluation
Assessment / Plan
Assessment / Plan
Assessment:
#Sepsis secondary to infected stage IV sacral pressure ulcer
#Acute on chronic osteomyelitis of sacrum
#Acute blood loss anemia s/p 1 unit PRBC
#Hyponatremia/ESRD
#Type 2 diabetes mellitus
#Essential hypertension
#Paroxysmal A-fib
#Right ear rims with healing stage 2 PI; 3 PI left heel healing blisters-from pressure
#TubeFeeding
Plan:
-Hospice consult, plan to transition to comfort based measures
-Continue with broad-spectrum antibiotics until formally on hospice
-Will resume tube feeds, nutrition
-Dialysis per nephrology pending formal hospice care
-Discontinued Eliquis and subcutaneous heparin
-DVT prophylaxis with SCDs
Anticipated Discharge: Within 24 hours
Subjective/Interval History
-
Date of Service: April 11, 2024
Seen and examined at the bedside. No acute events reported overnight. AFVSS this morning.
ROS limited from nonverbal status
Hospice consulted
Objective Data
-
Labs:
Laboratory Results
04/11/24 04/11/24
07:43 07:44
WBC 15.6 H
Hgb 7.6 L
Hct 23.4 L
Plt Count 588 H
Sodium 137
Potassium 3.6
Chloride 98
Carbon Dioxide 24
BUN 30 H
Creatinine 3.0 H
Glucose 121 H
Calcium 8.9
Vital Signs:
Vital Signs
Temp Pulse Resp BP Pulse Ox
98.4 F 71 16 143/47 100
04/11/24 07:50 04/11/24 07:50 04/11/24 07:50 04/11/24 07:50 04/11/24 07:50
I&O
04/10/24 04/11/24 04/12/24
06:59 06:59 06:59
Intake Total 0 / 0 190 / 190
Balance 0 / 0 190 / 190
Review of Systems
-
History Source: Patient
All other systems: Reviewed and negative
Physical Exam
-
General: Well Nourished, No Apparent Distress and Comfortable
HEENT: Normocephalic, Atraumatic and Moist Mucous Membranes
Respiratory: Clear to Auscultation and Non Labored Respirations
Cardiac: Regular Rhythm, S1/S2 and Murmur (Blowing apical); Negative Rub or Gallop
GI: Soft, Nontender, Nondistended and Normal Bowel Sounds
Musculoskeletal: No Clubbing, No Cyanosis and No Edema
Skin: Warm, Dry and Ulcers (Large stage IV sacral ulcer with necrotic appearing tissue and drainage); Negative Rash
Neuro: Awake, Alert and Other (Chronic aphasia and hemiplegia; no obvious new FND)
Data Reviewed
-
Labs: Labs Reviewed by me and Discussed with Physician
--- NOTE | 2024-04-11 10:38 | W.PN.NEPH.HD ---
Assessment
-
Seen on HD. no new issues. VSS, access ok
for hospice
Progress Note - Hemodialysis
-
Date of Service: April 11, 2024
Duration: 30 minutes and 3 hours
Potassium Bath: 3
Calcium Bath: 2.5
Opti-Dialyzer: 160
Ultrafiltration: Other (2kg)
Blood Flow: 400
Dialysate Flow: 600
Heparin: no
EPO: 46994 units
[2024-04-11] MEDS: APRESOLINE TUBE (10:41)
[2024-04-11] MEDS: COZAAR TUBE (10:41)
[2024-04-11] MEDS: NORVASC TUBE (10:41)
[2024-04-11] MEDS: HEPARIN 4200 UNITS INTRACATH (11:56)
[2024-04-11 12:35] LABS: Glucose - Point of Care 108 mg/dl (70-99)
[2024-04-11 13:12] VITALS: BMI 27.1
--- NOTE | 2024-04-11 14:00 | HOSPNOTE ---
Left a message on spouse phone asking for a call back to discuss hospice and the philosophy and signing consent forms. No call back and this was the second message left.
[2024-04-11 14:27] VITALS: BP 153/55
[2024-04-11] MEDS: DAKIN'S SOLUTION 0.125% 1/4 STRENGTH 50 ML TOPICAL (14:58)
[2024-04-11] MEDS: HYDROPHOR 1 APPLIC TOPICAL (14:59)
--- NOTE | 2024-04-11 15:26 | HOSPNOTE ---
Spoke with daughter and at this time they do not want hospice services. They would like to continue with treatment and patient remains a full code. Attending and CM aware. We will continue to try and reach spouse since he is the POA. More
information to follow.
[2024-04-11] MEDS: TYLENOL ORAL SOLUTION 650 MG TUBE (15:46)
--- NOTE | 2024-04-11 16:40 | W.PN.UPDATE ---
Update Note
Progress Note Update
Daughter has attempted to reverse hospice decision. Requested call, when I called there was no answer so I left a voicemail.
Have been unable to reach the patient's who would be legal POA. At last communication he agreed with hospice. Has not reversed decision formally. Daughter with no medical decision making authority in this context.
Nevertheless, have consulted hospital ethics committee. Will continue current therapy with antibiotics until ethics can weigh in. Likely to have meeting on sunday.
Further updates to come
[2024-04-11 18:15] LABS: Glucose - Point of Care 113 mg/dl (70-99)
[2024-04-11] MEDS: LIPITOR 20 MG TUBE (22:55)
[2024-04-11 23:00] VITALS: BP 131/41
[2024-04-12 00:08] LABS: Glucose - Point of Care 139 mg/dl (70-99)
[2024-04-12] MEDS: HEPARIN 5000 UNITS SC ×3 (00:10→17:15)
[2024-04-12] MEDS: APRESOLINE 75 MG TUBE ×3 (00:10→17:15)
[2024-04-12] MEDS: NOVOLOG FLEXPEN-MODERATE RESISTANCE SC (00:12)
[2024-04-12 05:46] LABS: Glucose - Point of Care 160 mg/dl (70-99)
[2024-04-12] MEDS: NOVOLOG FLEXPEN-MODERATE RESISTANCE 1 UNITS SC ×2 (05:47→14:01)
[2024-04-12 07:00] VITALS: BP 158/52
[2024-04-12 07:02] LABS: Glucose - Point of Care 163 mg/dl (70-99)
[2024-04-12] MEDS: VIMPAT 100 MG TUBE ×2 (09:08→20:34)
[2024-04-12] MEDS: DAKIN'S SOLUTION 0.125% 1/4 STRENGTH 1 ML TOPICAL (09:09)
[2024-04-12] MEDS: COZAAR 100 MG TUBE (09:09)
[2024-04-12] MEDS: NORVASC 10 MG TUBE (09:09)
[2024-04-12] MEDS: TYLENOL ORAL SOLUTION 650 MG TUBE ×2 (09:11→22:28)
--- NOTE | 2024-04-12 10:54 | W.PN.NEPH.PH ---
Today's Communication / Plan
-
HD sunday
Assessment/Plan
-
Assessment:
ESRD on HD tunneled dialysis catheter, [facility]
Acute on chronic anemia likely from upper GI bleed on anticoagulants
sacral decub wound
leucocytosis
Paroxysmal A-fib
Type 2 diabetes with hyperglycemia
Elevated transaminase
Dysphagia status post PEG tube
HTN�benign multidrug
Hx CVA with immobility, dysphagia
Seizure disorder
Dementia�severe
CAD prior NSTEMI
Hyponatremia
Plan:
follow Hgb
transfuse as needed
HD sunday
high dose LAURA with HD
nods yes to 'are you ok', shakes head no to 'do you have pain'. does not answer when asked 'do you want to keep doing dialysis'
await decision on hospice
-
-
Date of Service: April 12, 2024
CC / HPI / ROS
-
Chief Complaint:
ESRD
History of Present Illness:
hb low stable
BP stable
tolerated HD yesterday
Review of Systems:
non verbal, nods/shakes head to some questions
no fever
Labs
-
Labs:
WBC 15.6 10^3/uL (4.8-10.8) H 04/11/24 07:43
RBC 2.83 10^6/uL (4.20-5.40) L 04/11/24 07:43
Hgb 7.6 g/dL (12.0-16.0) L 04/11/24 07:43
Hct 23.4 % (37.0-47.0) L 04/11/24 07:43
Plt Count 588 10^3/uL (130-400) H 04/11/24 07:43
Sodium 137 mmol/L (135-145) 04/11/24 07:44
Potassium 3.6 mmol/L (3.5-5.1) 04/11/24 07:44
Chloride 98 mmol/L (98-107) 04/11/24 07:44
Carbon Dioxide 24 mmol/L (22-30) 04/11/24 07:44
BUN 30 mg/dl (7-17) H 04/11/24 07:44
Creatinine 3.0 mg/dL (0.6-1.0) H 04/11/24 07:44
eGFR 15.82 04/11/24 07:44
Glucose 121 mg/dl (70-99) H 04/11/24 07:44
Calcium 8.9 mg/dl (8.4-10.2) 04/11/24 07:44
Albumin 2.4 g/dl (3.5-5.0) L 04/07/24 22:22
Physical Exam
-
Vital Signs:
Vital Signs
Temp Pulse Resp BP Pulse Ox
99.6 F 78 14 158/52 98
04/12/24 07:00 04/12/24 07:00 04/12/24 07:00 04/12/24 07:00 04/12/24 07:00
Cardiovascular:: Regular rate and rhythm
Respiratory:: Bilateral: Coarse
Lung Excursion:: Normal
Abdomen:: Nontender and Soft
Bowel Sounds:: Normal
Extremity Edema:: None: Bilateral:
[2024-04-12 13:11] LABS: Glucose - Point of Care 193 mg/dl (70-99)
[2024-04-12] MEDS: HYDROPHOR 1 APPLIC TOPICAL (14:00)
--- NOTE | 2024-04-12 14:57 | W.PN.HOSP.TC ---
Today's Communication/Plan
-
await hospice decision
REMAINS FULL CODE
Assessment / Plan
Assessment / Plan
pt is a 73 year old female
04/12/24 -- pt not verbally responsive to me--does not answer my questions or acknowledge me---no family at bedside--await hospice decision--apparently pt spouse is POA, did not anyone's calls--daughter wants no hospice but previous attempts to reach
anyone were not fruitful--cont tube feeds--await hospice decision--apparently ethics committee involved
Assessment:
#Sepsis secondary to infected stage IV sacral pressure ulcer
#Acute on chronic osteomyelitis of sacrum
#Acute blood loss anemia s/p 1 unit PRBC
#Hyponatremia/ESRD
#Type 2 diabetes mellitus
#Essential hypertension
#Paroxysmal A-fib
#Right ear rims with healing stage 2 PI; 3 PI left heel healing blisters-from pressure
#Tube Feeding
Plan:
-Hospice consult, plan to transition to comfort based measures
-Continue with broad-spectrum antibiotics until formally on hospice
-Will resume tube feeds, nutrition
-Dialysis per nephrology pending formal hospice care
-Discontinued Eliquis and subcutaneous heparin
-DVT prophylaxis with SCDs
Anticipated Discharge: > 48 hours
Subjective/Interval History
-
Date of Service: April 12, 2024
pt did not speak or acknowledge me
Objective Data
-
Vital Signs:
max temp for 24 hours
04/11/24
14:27
Temp 99.3 F
Vital Signs
Temp Pulse Resp BP Pulse Ox
99.6 F 78 14 158/52 98
04/12/24 07:00 04/12/24 07:00 04/12/24 07:00 04/12/24 07:00 04/12/24 07:00
I&O
04/11/24 04/12/24 04/13/24
06:59 06:59 05:59
Intake Total 190 / 190 390 / 390 50 / 50
Balance 190 / 190 390 / 390 50 / 50
Review of Systems
-
Unable to obtain full review of systems at this time due to: Patient Non-verbal (at least with me)
Physical Exam
-
General: Well Developed, Well Nourished and No Apparent Distress
HEENT: Normocephalic and Atraumatic
Respiratory: Clear to Auscultation; Negative Wheezes or Rhonchi
Cardiac: Regular Rhythm and S1/S2; Negative Murmur
GI: Soft, Nontender, Nondistended, Normal Bowel Sounds and Peg Tube
Musculoskeletal: No Clubbing, No Cyanosis, No Edema and Other (soft heel boots in place bilaterally)
Neuro: Negative Awake or Alert
Psych: Calm
[2024-04-12 15:00] VITALS: BP 154/47
[2024-04-12 18:37] LABS: Glucose - Point of Care 200 mg/dl (70-99)
[2024-04-12] MEDS: NOVOLOG FLEXPEN-MODERATE RESISTANCE 3 UNITS SC (18:37)
[2024-04-12 22:25] VITALS: BP 146/46
[2024-04-12] MEDS: LIPITOR 20 MG TUBE (22:28)
[2024-04-13 00:36] LABS: Glucose - Point of Care 236 mg/dl (70-99)
[2024-04-13] MEDS: NOVOLOG FLEXPEN-MODERATE RESISTANCE 3 UNITS SC ×2 (00:39→13:03)
[2024-04-13] MEDS: HEPARIN 5000 UNITS SC ×3 (00:40→17:02)
[2024-04-13] MEDS: APRESOLINE 75 MG TUBE ×3 (00:44→17:02)
[2024-04-13 06:00] VITALS: BMI 26.2
[2024-04-13 06:27] LABS: Glucose - Point of Care 198 mg/dl (70-99)
[2024-04-13] MEDS: NOVOLOG FLEXPEN-MODERATE RESISTANCE 1 UNITS SC ×2 (06:30→18:36)
[2024-04-13 07:00] VITALS: BP 168/58
[2024-04-13] MEDS: NORVASC 10 MG TUBE (08:18)
[2024-04-13] MEDS: VIMPAT 100 MG TUBE ×2 (08:18→21:22)
[2024-04-13] MEDS: COZAAR 100 MG TUBE (08:18)
[2024-04-13] MEDS: DAKIN'S SOLUTION 0.125% 1/4 STRENGTH 1 ML TOPICAL (08:19)
[2024-04-13] MEDS: HYDROPHOR 1 APPLIC TOPICAL (08:19)
[2024-04-13] MEDS: IMODIUM LIQUID 2 MG TUBE (09:49)
--- NOTE | 2024-04-13 10:06 | W.PN.NEPH.PH ---
Today's Communication / Plan
-
ethics consult
Assessment/Plan
-
Assessment:
ESRD on HD tunneled dialysis catheter, [facility] linda for[facility]
Acute on chronic anemia likely from upper GI bleed on anticoagulants
sacral decub wound
leucocytosis
Paroxysmal A-fib
Type 2 diabetes with hyperglycemia
Elevated transaminase
Dysphagia status post PEG tube
HTN�benign multidrug
Hx CVA with immobility, dysphagia
Seizure disorder
Dementia�severe
CAD prior NSTEMI
Hyponatremia
Plan:
follow Hgb
transfuse as needed
HD sunday possibly
high dose LAURA with HD
await ethics decision on hospice
-
-
Date of Service: April 13, 2024
CC / HPI / ROS
-
Chief Complaint:
ESRD
History of Present Illness:
hb low stable
BP stable
tolerated HD sunday
Review of Systems:
non verbal today
no fever
Labs
-
Labs:
WBC 15.6 10^3/uL (4.8-10.8) H 04/11/24 07:43
RBC 2.83 10^6/uL (4.20-5.40) L 04/11/24 07:43
Hgb 7.6 g/dL (12.0-16.0) L 04/11/24 07:43
Hct 23.4 % (37.0-47.0) L 04/11/24 07:43
Plt Count 588 10^3/uL (130-400) H 04/11/24 07:43
Sodium 137 mmol/L (135-145) 04/11/24 07:44
Potassium 3.6 mmol/L (3.5-5.1) 04/11/24 07:44
Chloride 98 mmol/L (98-107) 04/11/24 07:44
Carbon Dioxide 24 mmol/L (22-30) 04/11/24 07:44
BUN 30 mg/dl (7-17) H 04/11/24 07:44
Creatinine 3.0 mg/dL (0.6-1.0) H 04/11/24 07:44
eGFR 15.82 04/11/24 07:44
Glucose 121 mg/dl (70-99) H 04/11/24 07:44
Calcium 8.9 mg/dl (8.4-10.2) 04/11/24 07:44
Albumin 2.4 g/dl (3.5-5.0) L 04/07/24 22:22
Physical Exam
-
Vital Signs:
Vital Signs
Temp Pulse Resp BP Pulse Ox
98.6 F 78 18 168/58 100
04/13/24 07:00 04/13/24 07:00 04/13/24 07:00 04/13/24 07:00 04/13/24 07:00
Cardiovascular:: Regular rate and rhythm
Respiratory:: Bilateral: Coarse
Lung Excursion:: Normal
Abdomen:: Nontender and Soft
Bowel Sounds:: Normal
Extremity Edema:: None: Bilateral:
--- NOTE | 2024-04-13 12:10 | W.PN.HOSP.TC ---
Today's Communication/Plan
-
restart zosyn
Assessment / Plan
Assessment / Plan
pt is a 73 year old female
04/13/24 -- pt nonverbal with me--I DO NOT BELIEVE the patient has capacity to make medical decisions--confusion re: POA--current chart says , nursing reports living will says daughter--daughter DOES NOT want hospice BUT any calls to family
have gone unanswered and there have been no visitors as per nursing reports--ethics committee involved--pt remains FULL CODE and IS NOT on hospice--restarted zosyn--may want to reconsult specialists--continues to receive dialysis-- my medical
opinion is that care is FUTILE in this patient and without hospice pt will have a long, painful with recurrent hospitalizations and no chance of cure of this infected decubitus ulcer
-placed order for fecal management system
-restarted zosyn
-HD continues
-tube feeds causing significant diarrhea--cont imodium
04/12/24 -- pt not verbally responsive to me--does not answer my questions or acknowledge me---no family at bedside--await hospice decision--apparently pt spouse is KEYSHA, did not anyone's calls--daughter wants no hospice but previous attempts to reach
anyone were not fruitful--cont tube feeds--await hospice decision--apparently ethics committee involved
Assessment:
#Sepsis secondary to infected stage IV sacral pressure ulcer
#Acute on chronic osteomyelitis of sacrum
#Acute blood loss anemia s/p 1 unit PRBC
#Hyponatremia/ESRD
#Type 2 diabetes mellitus
#Essential hypertension
#Paroxysmal A-fib
#Right ear rims with healing stage 2 PI; 3 PI left heel healing blisters-from pressure
#Tube Feeding
Plan:
-Hospice consult, plan to transition to comfort based measures
-Continue with broad-spectrum antibiotics until formally on hospice
-Will resume tube feeds, nutrition
-Dialysis per nephrology pending formal hospice care
-Discontinued Eliquis and subcutaneous heparin
-DVT prophylaxis with SCDs
Anticipated Discharge: > 48 hours
Subjective/Interval History
-
Date of Service: April 13, 2024
pt nonverbal with me
Objective Data
-
Vital Signs:
max temp for 24 hours
04/12/24
22:25
Temp 100.7 F H
Vital Signs
Temp Pulse Resp BP Pulse Ox
98.6 F 78 18 168/58 100
04/13/24 07:00 04/13/24 07:00 04/13/24 07:00 04/13/24 07:00 04/13/24 07:00
I&O
04/12/24 04/13/24 04/14/24
07:59 06:59 06:59
Intake Total 60 / 60
Output Total 200 / 200
Balance -140 / -140
Review of Systems
-
Unable to obtain full review of systems at this time due to: Dementia and Patient Non-verbal
Physical Exam
-
General: Appears Chronically Ill
HEENT: Normocephalic and Atraumatic
Respiratory: Clear to Auscultation; Negative Wheezes or Rhonchi
Cardiac: Regular Rhythm and S1/S2; Negative Murmur
GI: Soft, Nontender, Nondistended, Normal Bowel Sounds and Peg Tube
Musculoskeletal: No Clubbing, No Cyanosis, No Edema and Other (soft heel boots in place)
Skin: Decubitus Ulcers (LARGE stage 4 with bone showing sacral PI ulcer--reviewed picture in chart)
[2024-04-13 12:28] LABS: Glucose - Point of Care 242 mg/dl (70-99)
[2024-04-13] MEDS: ZOSYN 50 IV ×2 (13:04→21:22)
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
[2024-04-13 15:00] VITALS: BP 150/88
--- NOTE | 2024-04-13 16:18 | CHAP ---
Visited Madeline at 3:15. She was sleeping, non-responsive. No family present. Offered words of comfort, and a prayer.
[2024-04-13 18:17] LABS: Glucose - Point of Care 190 mg/dl (70-99)
[2024-04-13] MEDS: LIPITOR 20 MG TUBE (21:22)
[2024-04-13 23:50] VITALS: BP 154/52
[2024-04-14 00:57] LABS: Glucose - Point of Care 201 mg/dl (70-99)
[2024-04-14] MEDS: APRESOLINE 75 MG TUBE ×2 (01:07→08:03)
[2024-04-14] MEDS: HEPARIN 5000 UNITS SC ×3 (01:10→16:39)
[2024-04-14] MEDS: NOVOLOG FLEXPEN-MODERATE RESISTANCE 3 UNITS SC ×3 (01:10→12:13)
[2024-04-14 01:33] VITALS: BMI 26.4
[2024-04-14 06:13] LABS: Glucose - Point of Care 228 mg/dl (70-99)
[2024-04-14] MEDS: ZOSYN 50 IV ×3 (06:14→21:25)
[2024-04-14 07:11] LABS: Glucose - Point of Care 215 mg/dl (70-99)
[2024-04-14 07:42] VITALS: BP 154/77
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
[2024-04-14] MEDS: VIMPAT 100 MG TUBE ×2 (08:03→21:23)
[2024-04-14] MEDS: COZAAR 100 MG TUBE (08:06)
[2024-04-14] MEDS: NORVASC 10 MG TUBE (08:07)
[2024-04-14] MEDS: DAKIN'S SOLUTION 0.125% 1/4 STRENGTH 1 ML TOPICAL (08:21)
[2024-04-14] MEDS: HYDROPHOR 1 APPLIC TOPICAL (08:21)
[2024-04-14 11:50] LABS: Glucose - Point of Care 224 mg/dl (70-99)
--- NOTE | 2024-04-14 11:57 | HOSPNOTE ---
Hospice will sign off. If hospice is wanted please reach out.
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
[2024-04-14 15:27] VITALS: BP 163/58
[2024-04-14 16:37] LABS: Hematocrit 25.1 % (37.0-47.0); Hemoglobin 7.9 g/dL (12.0-16.0)
--- NOTE | 2024-04-14 16:39 | W.PN.NEPH.HD ---
Assessment
-
Patient for HD
u/f as hemodynamically tolerated
Family decided for full support and agressive measures
Progress Note - Hemodialysis
-
Date of Service: April 14, 2024
Duration: 30 minutes and 3 hours
Potassium Bath: 3
Calcium Bath: 2.5
Opti-Dialyzer: 160
Ultrafiltration: Other (2kg)
Blood Flow: 400
Dialysate Flow: 600
Heparin: none
EPO: 12K
[2024-04-14] MEDS: APRESOLINE TUBE (16:53)
[2024-04-14 16:56] LABS: Carbon Dioxide 27 mmol/L (22-30); Chloride 94 mmol/L (98-107); Potassium 3.9 mmol/L (3.5-5.1); Sodium 132 mmol/L (135-145)
--- NOTE | 2024-04-14 16:56 | W.PN.ID1 ---
Date of Service
Date of Service: April 14, 2024
Today's Communication
decision for hospice rescinded
patient on HD during my exam - however, doubtful that we would see significant improvement in the wounds, will reassess tomorrow
recommend reconsulting surgery for debridement - family have been responsive to Dr Ojeda today
plan treatment for SSTI, treatment for osteomyelitis futile without plans for coverage of the bone (typically flap) and ostomy neither of which she is a candidate for
fine to continue zosyn for now, likely transition to augmentin 500/125 mg q 24 qPM post debridement
Assessment / Plan
Fever
Infected Sacral Decubitus Ulcer
ESRD on HD
decision for hospice rescinded
patient on HD during my exam - however, doubtful that we would see significant improvement in the wounds, will reassess tomorrow
recommend reconsulting surgery for debridement - family have been responsive to Dr Ojeda today
plan treatment for SSTI, treatment for osteomyelitis futile without plans for coverage of the bone (typically flap) and ostomy neither of which she is a candidate for
fine to continue zosyn for now, likely transition to augmentin 500/125 mg q 24 qPM post debridement
AW
Chief Complaint
-: Other (sacral decubitus ulcer and possible osteomyelitis)
Subjective / Review of Systems
called back by hospitalist - patient will not transition to hospice
remains on HD
currently on zosyn
has not had debridement
Vital Signs / Physical Exam
Vital Signs
Vital Signs
Temp Pulse Resp BP Pulse Ox
98.2 F 77 16 163/58 99
04/14/24 15:27 04/14/24 15:27 04/14/24 15:27 04/14/24 15:27 04/14/24 15:27
Physical Exam
Constitutional: No Acute Distress
Cardiovascular: Regular Rate and S1/S2; Negative Murmur or Rub
Pulmonary: Clear and Symmetric; Negative Wheezes or Rales
Gastrointestinal: Soft, Non Tender, Non Distended and Normal Bowel Sounds
Skin: Warm and Dry; Negative Rash or Jaundice
Wound: Other (actively on HD during my exam- could not safely turn to reassess wound)
Objective Data
Lab Data
Lab Results
04/14/24 16:14
Estimated Creat Clear 16 ml/min 04/11/24 07:44
Lactic Acid 1.1 mmol/L (0.7-2.0) 04/07/24 22:22
Total Bilirubin 0.2 mg/dl (0.2-1.3) 04/07/24 22:22
AST 44 U/L (14-36) H 04/07/24 22:22
ALT 23 U/L (0-35) 04/07/24 22:22
Alkaline Phosphatase 175 U/L (38-126) H 04/07/24 22:22
C-Reactive Protein > 270.00 mg/L (0.0-10.00) H 04/09/24 09:22
Most recent labs reviewed.
Micro Results:
04/07/24 23:58 Blood Culture - Final
Blood/Venous Coagulase neg. staphylococcus
Additional testing on request
Gram Stain - Final
04/10/24 06:46 Blood Culture - Preliminary
Blood/Venous No Growth in 4 days- Final report to follow
04/10/24 05:54 Blood Culture - Preliminary
Blood/Venous No Growth in 4 days- Final report to follow
04/08/24 00:44 Blood Culture - Final
Blood/Venous No Growth - Final Report
04/08/24 03:57 MRSA Screen - Final
Nose No Methicillin Resistant Staphylococcus aureus isolated.
Care Review
Plan reviewed with: Physician (Dr Ojeda - surgery)
[2024-04-14] MEDS: MANNITOL 25% 12.5 GRAMS IV (17:00)
[2024-04-14] MEDS: FLEXBUMIN 25% FOR HEMODIALYSIS 12.5 GRAMS IV (17:05)
[2024-04-14] MEDS: RETACRIT 10000 UNITS IV (17:13)
[2024-04-14 18:08] LABS: Glucose - Point of Care 190 mg/dl (70-99)
[2024-04-14] MEDS: NOVOLOG FLEXPEN 5 UNITS SC (18:23)
[2024-04-14] MEDS: NOVOLOG FLEXPEN-MODERATE RESISTANCE 1 UNITS SC (18:24)
[2024-04-14 19:48] LABS: Hepatitis B Surface Antigen Negative (Negative)
[2024-04-14] MEDS: HEPARIN 4200 UNITS INTRACATH (20:24)
[2024-04-14] MEDS: PREVACID 30 MG TUBE (21:23)
[2024-04-14] MEDS: LANTUS 0.08 UNITS SC (21:26)
[2024-04-14 22:11] LABS: Glucose - Point of Care 167 mg/dl (70-99)
[2024-04-14 22:35] VITALS: BP 164/55
[2024-04-15 00:59] LABS: Glucose - Point of Care 197 mg/dl (70-99)
[2024-04-15] MEDS: NOVOLOG FLEXPEN 5 UNITS SC ×5 (01:04→22:56)
[2024-04-15] MEDS: APRESOLINE 75 MG TUBE ×4 (01:06→23:09)
[2024-04-15] MEDS: HEPARIN 5000 UNITS SC ×4 (01:10→22:55)
[2024-04-15] MEDS: NOVOLOG FLEXPEN-MODERATE RESISTANCE 1 UNITS SC (01:10)
[2024-04-15 05:22] VITALS: BMI 26.4
[2024-04-15 05:22] LABS: Hematocrit 23.3 % (37.0-47.0); Hemoglobin 7.5 g/dL (12.0-16.0); Mean Corp Hgb Conc. 32.2 g/dL (33.0-37.0); Mean Corpuscular Hgb 26.5 pg (27.0-31.0); Mean Corpuscular Volume 82.3 fL (81.0-99.0); Mean Platelet Volume 8.8 fL (7.4-10.4); Platelet Count 495 10^3/uL (130-400); Red Blood Cell Count 2.83 10^6/uL (4.20-5.40); Red Cell Dist. Width 18.1 % (11.5-14.5); White Blood Cell Count 16.6 10^3/uL (4.8-10.8)
[2024-04-15 05:40] LABS: Blood Urea Nitrogen 20 mg/dl (7-17); Calcium 8.9 mg/dl (8.4-10.2); Carbon Dioxide 29 mmol/L (22-30); Chloride 97 mmol/L (98-107); Estimated Creatinine Clearance 22 ml/min; Glucose 152 mg/dl (70-99); Sodium 135 mmol/L (135-145); eGFR 27.37
[2024-04-15 06:21] LABS: Glucose - Point of Care 134 mg/dl (70-99)
[2024-04-15] MEDS: NOVOLOG FLEXPEN-MODERATE RESISTANCE SC ×4 (06:22→22:48)
[2024-04-15] MEDS: ZOSYN 50 IV ×3 (06:25→21:02)
[2024-04-15 07:55] VITALS: BP 146/51
--- NOTE | 2024-04-15 08:11 | W.PN.HOSP.TC ---
Today's Communication/Plan
-
1 unit PRBC today
Continue antibiotics
OR potentially in a.m.
Assessment / Plan
Assessment / Plan
Impression:69-year-old 3-year-old female with extensive past medical history notable for ESRD, coming in with fever and anemia from [address] [place] [address]. She was recently discharged 1 week ago. On exam she is otherwise well-appearing
with a rather large decubitus sacral ulcer with purulent and bloody drainage. She is febrile, but hemodynamically stable. No pulmonary findings. Marked leukocytosis.
Assessment/plan:
#Sepsis secondary to infected stage IV sacral pressure ulcer with chronic osteomyelitis of sacrum.
-General Surgery reconsulted for sacral ulcer wound debridement in a.m.
-Daughter to give consent by phone in a.m.
-Continue with broad-spectrum antibiotics.
-ID following.
-Will resume tube feeds, nutrition.
-Family does not want hospice as recommended.
#Acute blood loss anemia s/p 1 unit PRBC
-Most likely due to subacute/chronic GI blood loss.
-Will give 1 units of blood today in anticipation for OR tomorrow.
-Called daughter to update but went straight to voicemail.
-Holding AC for now.
-Follow Hb.
-IV iron as needed.
-PPI for prophylaxis with Protonix 40 mg BID.
# End-stage renal disease
-Continue HD M/W/F
-Nephrology on board.
Type 2 diabetes mellitus
-Hold home Lantus and aspart for NPO.
-Sliding scale Q6
#Essential hypertension
-Continue Norvasc, hydralazine and losartan.
#Paroxysmal A-fib
-Rate controlled
-Hold Eliquis with anemia.
# Right ear rims with healing stage 2 PI; 3 PI left heel healing blisters-from pressure
-Dry, healing, skin intact.
#TubeFeeding
-Nutrition is following.
DVT prophylaxis-SCDs
CODE STATUS-full code
Anticipated Discharge: > 48 hours
Subjective/Interval History
-
Date of Service: April 15, 2024
Patient seen in the room while getting wound dressing for sacral decubitus ulcer. She remains nonverbal but nods to most of my questions. She denies chest pain, abdominal pain, and did not respond to any further questions.
Objective Data
-
Labs:
Laboratory Results
04/15/24
04:28
WBC 16.6 H
Hgb 7.5 L
Hct 23.3 L
Plt Count 495 H
Sodium 135
Potassium 4.0
Chloride 97 L
Carbon Dioxide 29
BUN 20 H
Creatinine 1.9 H
Glucose 152 H
Calcium 8.9
Vital Signs:
Vital Signs
Temp Pulse Resp BP Pulse Ox
98.2 F 80 16 146/51 100
04/15/24 07:55 04/15/24 07:55 04/15/24 07:55 04/15/24 07:55 04/15/24 07:55
I&O
04/14/24 04/15/24 04/16/24
06:59 06:59 06:59
Intake Total 990 / 990 0 / 0
Output Total 200 / 200
Balance 790 / 790 0 / 0
Review of Systems
-
Unable to obtain full review of systems at this time due to: Dementia and Patient Non-verbal
Physical Exam
-
General: No Apparent Distress, Comfortable and Appears Chronically Ill
HEENT: Normocephalic and Atraumatic
Respiratory: Clear to Auscultation; Negative Wheezes or Rhonchi
Cardiac: Regular Rhythm and S1/S2; Negative Murmur
GI: Soft, Nontender, Nondistended, Normal Bowel Sounds and Peg Tube
Musculoskeletal: No Cyanosis, No Edema and Other (soft heel boots in place)
Skin: Warm and Decubitus Ulcers (LARGE stage 4 with bone showing sacral PI ulcer--reviewed picture in chart)
Neuro: Awake
Psych: Calm
Data Reviewed
-
Labs: Labs Reviewed by me and Discussed with Physician
Old Records: Reviewed
--- NOTE | 2024-04-15 08:25 | W.PN.SURGUPD ---
Addendum entered and electronically signed by Jhonatan Vergara MD 04/15/24 10:06:
Called and spoke with patient's daughter. Patient with a stage IV sacral decubitus ulcer with osteomyelitis. Role of surgical debridement to limit infected and tissue within the skin subcutaneous space was discussed. We discussed that
surgical intervention will not eliminate or remove her infection given the presence of osteomyelitis. We discussed the futility in proceeding with surgical debridement given the above. Patient's daughter insists that she would like to proceed with
surgical debridement. We discussed surgical debridement of sacral decubitus ulcer. The procedure itself, as well as the risks, benefits and alternatives was discussed. All questions answered. Will attempt to coordinate timing of surgical
debridement, tomorrow at the earliest. Will need to call for telephone consent, if again no response from family members then will delay surgical care.
Would strongly consider ethics committee evaluation given the complexity of this case.
Original Note:
Surgical Update
Surgical Update
Alerted by resident service that patient's DPOA/daughter wishes to proceed with surgical debridement. Attempted to call daughter Marcela at listed number. Call went immediately to voicemail.
[2024-04-15] MEDS: PREVACID 30 MG TUBE ×2 (09:01→21:00)
[2024-04-15] MEDS: NORVASC 10 MG TUBE (09:02)
[2024-04-15] MEDS: COZAAR 100 MG TUBE (09:03)
[2024-04-15] MEDS: HYDROPHOR 1 APPLIC TOPICAL (09:03)
[2024-04-15] MEDS: DAKIN'S SOLUTION 0.125% 1/4 STRENGTH 1 ML TOPICAL (09:03)
[2024-04-15] MEDS: VIMPAT 100 MG TUBE ×2 (09:04→20:55)
[2024-04-15] MEDS: TYLENOL ORAL SOLUTION 650 MG TUBE (09:15)
[2024-04-15 11:58] LABS: Glucose - Point of Care 126 mg/dl (70-99)
--- NOTE | 2024-04-15 14:23 | CM ---
Patient for tentative OR tomorrow.
Daughter refused hospice at this time.
Report filed with [facility] Office of Adult Protective Services 04/14/24.
Plan remains back to [facility] once medically stable
Report# [phone]
--- NOTE | 2024-04-15 14:49 | W.PN.UPDATE ---
Update Note
Progress Note Update
73-year-old female with history of CVA and dementia status post PEG tube presented to the ER with a hemoglobin of 6.3.� Patient was admitted and discharged on March 30 with coffee ground emesis from PEG tube.
I personally performed a history and physical exam of the patient and discussed management with the resident. I reviewed the resident's note and agree with the documented findings and plan of care HPI/CC except changes in documentation
CVS S1 S2 normal
Chest CTA
Abd Soft NT
Sacrum large decub with discharge
Eyes open, nodes some times to answer questions today
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
Continue antibiotics
Infectious disease recommendations requested
Surgery evaluation requested , tentatively 4 OR tomorrow
Recommended hospice .Family doesn't want it.
# Acute on chronic anemia status post 1 unit of packed red blood cells
Possibly secondary to subacute GI blood loss and renal disease
Anticoagulation on hold secondary to anemia
Follow hemoglobin
Iron deficiency noted-IV iron
Continue PPI 40 Mg twice daily
Will give 1 more unit of blood today in anticipation to OR tomorrow
# Thrombocytosis likely secondary to infection
# End-stage renal disease/hyponatremia-nephrology following
# Type 2 diabetes-continue Lantus insulin 8 units daily and aspart 5 mg Q6
# Nvdirgqvkfwc-jbtgjxmsg-qruzsjuob. �On amlodipine 10 Mg, clonidine 1 mg patch, hydralazine 75 Mg every 8 hours, losartan 100 mg daily
# Paroxysmal atrial fibrillation-Eliquis on hold secondary to anemia
# Elevated transaminases
# Hyperlipidemia-hold atorvastatin with elevated LFTs
# Coronary artery disease with history of prior non-STEMI-
# Right ear Rimes with stage II pressure injury-healing
Stage III pressure injury left heel healing blisters
# Dysphagia status post PEG tube
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
# History of DVT per chart
# Seizure disorder-continue Vimpat
# Severe dementia
# Hypoalbuminemia
# Nutrition- Tube feeds
# Ambulatory dysfunction- Bed bound.
# DVT Prophylaxis- ROLY
# Full code
04/14/2024 -I had a very long conversation with . That is pt's second . He doesnt have POA
Daughter Marcela from first marriage has POA. She stated that she spent time here with the patient and she can communicate with her through pt shaking her head or squeezing hand etc. daughter stated that she asked the patient if she wants to be on
hospice and patient said no. ' She also had tears in her eyes at that time'. Daughter also states that she communicated with multiple family members who did not want hospice either.
I explained to daughter that patient is not in a condition where she is able to have a meaningful conversation. She is almost nonverbal to me. Explained about all of patient's medical conditions. We discussed about large decubitus ulcer with no
potential for complete cure. I also asked her to picture herself in a situation where the patient is in. I discussed that patient's condition could get worse at any time given her frailty.
Despite all the discussion daughter still decided not to go with hospice.
Daughter also noted that [facility] was [facility] as [facility] and it was deemed that patient was better off in a snf and that is how she ended up in a snf in 2020. She blames the patient's condition getting worse as she got a
new snf.
04/15- Called daughter- went to message
D/W Surgeon
[2024-04-15] MEDS: FERRLECIT 110 MG IV (14:52)
[2024-04-15 15:10] VITALS: BP 140/53
--- NOTE | 2024-04-15 15:10 | W.PN.NEPH.PH ---
Today's Communication / Plan
-
Hd tomorrow
Assessment/Plan
-
Assessment:
ESRD on HD tunneled dialysis catheter, [facility]
Acute on chronic anemia likely from upper GI bleed on anticoagulants
sacral decub wound
leucocytosis
Paroxysmal A-fib
Type 2 diabetes with hyperglycemia
Elevated transaminase
Dysphagia status post PEG tube
HTN�benign multidrug
Hx CVA with immobility, dysphagia
Seizure disorder
Dementia�severe
CAD prior NSTEMI
Hyponatremia
Plan:
follow Hgb ~7.5
transfuse as needed
HD tomorrow,orders provided
high dose LAURA with HD
Family does not wish to pursue hospice care although ongoing care has approached futility given significant comorbidities
-
-
Date of Service: April 15, 2024
CC / HPI / ROS
-
Chief Complaint:
ESRD
History of Present Illness:
hb low stable
BP stable
HD ESRD
Review of Systems:
non verbal today
no fever
Labs
-
Labs:
WBC 16.6 10^3/uL (4.8-10.8) H 04/15/24 04:28
RBC 2.83 10^6/uL (4.20-5.40) L 04/15/24 04:28
Hgb 7.5 g/dL (12.0-16.0) L 04/15/24 04:28
Hct 23.3 % (37.0-47.0) L 04/15/24 04:28
Plt Count 495 10^3/uL (130-400) H 04/15/24 04:28
Sodium 135 mmol/L (135-145) 04/15/24 04:28
Potassium 4.0 mmol/L (3.5-5.1) 04/15/24 04:28
Chloride 97 mmol/L (98-107) L 04/15/24 04:28
Carbon Dioxide 29 mmol/L (22-30) 04/15/24 04:28
BUN 20 mg/dl (7-17) H 04/15/24 04:28
Creatinine 1.9 mg/dL (0.6-1.0) H 04/15/24 04:28
eGFR 27.37 04/15/24 04:28
Glucose 152 mg/dl (70-99) H 04/15/24 04:28
Calcium 8.9 mg/dl (8.4-10.2) 04/15/24 04:28
Albumin 2.4 g/dl (3.5-5.0) L 04/07/24 22:22
Physical Exam
-
Vital Signs:
Vital Signs
Temp Pulse Resp BP Pulse Ox
98.2 F 80 16 146/51 100
04/15/24 07:55 04/15/24 09:02 04/15/24 07:55 04/15/24 09:02 04/15/24 07:55
Cardiovascular:: Regular rate and rhythm
Respiratory:: Bilateral: Coarse
Lung Excursion:: Normal
Abdomen:: Nontender and Soft
Bowel Sounds:: Normal
Extremity Edema:: None: Bilateral:
Castañeda Catheter: No
[2024-04-15 16:41] LABS: Glucose - Point of Care 109 mg/dl (70-99)
[2024-04-15 17:48] VITALS: BP 135/51
[2024-04-15 18:07] VITALS: BP 135/51
[2024-04-15] MEDS: IMODIUM LIQUID 2 MG TUBE (20:57)
[2024-04-15 21:05] VITALS: BP 158/57
[2024-04-15 21:24] LABS: Glucose - Point of Care 131 mg/dl (70-99)
[2024-04-15] MEDS: LANTUS SC (21:36)
[2024-04-15] MEDS: LANTUS 0.08 UNITS SC (22:57)
[2024-04-15 23:35] VITALS: BP 159/56
[2024-04-16] MEDS: ZOSYN 50 IV ×3 (05:22→20:45)
[2024-04-16 05:33] LABS: Glucose - Point of Care 141 mg/dl (70-99)
[2024-04-16] MEDS: NOVOLOG FLEXPEN 5 UNITS SC ×4 (05:34→23:31)
[2024-04-16] MEDS: NOVOLOG FLEXPEN-MODERATE RESISTANCE SC ×3 (05:34→17:16)
[2024-04-16 06:00] VITALS: BMI 27.1
[2024-04-16 07:24] VITALS: BP 136/47
--- NOTE | 2024-04-16 08:16 | W.PN.HOSP.TC ---
Addendum entered and electronically signed by Rolly Ojeda MD 04/16/24 15:58:
73-year-old female with history of CVA and dementia status post PEG tube presented to the ER with a hemoglobin of 6.3.� Patient was admitted and discharged on March 30 with coffee ground emesis from PEG tube.
I personally performed a history and physical exam of the patient and discussed management with the resident. I reviewed the resident's note and agree with the documented findings and plan of care HPI/CC except changes in documentation
CVS S1 S2 normal
Chest CTA
Abd Soft NT
Sacrum large decub with discharge
Patient awake but will not communicate with me
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
Continue antibiotics
Infectious disease recommendations requested
Surgery evaluation requested , tentatively for OR
Recommended hospice .Family doesn't want it.
called daughter today for consent however she was not reachable
# Acute on chronic anemia status post 1 unit of packed red blood cells
Possibly secondary to subacute GI blood loss and renal disease
Anticoagulation on hold secondary to anemia
Follow hemoglobin
Iron deficiency noted-IV iron
Continue PPI 40 Mg twice daily
got another unit of blood 04/15/24
Patient had an endoscopy 03/04-grade a esophagitis with no bleeding. Gastrostomy present. Inflammatory tissue at the base with a clean-based ulcer. Duodenitis. Normal jejunum
Colonoscopy 01/02/24-18 mm polyp in the proximal ascending colon removed clip was placed. 3 mm polyp in the ascending colon removed resected and retrieved. 10 mm polyp in the sigmoid colon removed clip was placed. Stool in the entire examined
colon. Internal hemorrhoids.
I added PPI Via Tube BID
Since these tests were recent did not request GI evaluation
# Thrombocytosis likely secondary to infection
# End-stage renal disease/hyponatremia-nephrology following
# Type 2 diabetes-continue Lantus insulin 8 units daily and aspart 5 mg Q6
# Dgmvcchxwzcz-pajbrrluu-rzuqnqryk. �On amlodipine 10 Mg, clonidine 1 mg patch, hydralazine 75 Mg every 8 hours, losartan 100 mg daily
# Paroxysmal atrial fibrillation-Eliquis on hold secondary to anemia
# Elevated transaminases
# Hyperlipidemia-hold atorvastatin with elevated LFTs. Rpy LFTS
# Coronary artery disease with history of prior non-STEMI-
# Right ear Rimes with stage II pressure injury-healing.Stage III pressure injury left heel healing blisters
# Dysphagia status post PEG tube
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
# History of DVT per chart
# Seizure disorder-continue Vimpat
# Severe dementia
# Hypoalbuminemia
# Nutrition- Tube feeds
# Ambulatory dysfunction- Bed bound.
# DVT Prophylaxis- ROLY
# Full code
Discussed with nursing
Called and spoke to patient's daughter she said that she was driving and was on the flight when surgeon called. She is going to call back through the scada operator.
Original Note:
Today's Communication/Plan
-
Wound debridement toady if daughter will call and give consent
Tube feeding
HD in am
Assessment / Plan
Assessment / Plan
Impression:69-year-old 3-year-old female with extensive past medical history notable for ESRD, coming in with fever and anemia from [address] [place] [address]. She was recently discharged 1 week ago. On exam she is otherwise well-appearing
with a rather large decubitus sacral ulcer with purulent and bloody drainage. She is febrile, but hemodynamically stable. No pulmonary findings. Marked leukocytosis.
Assessment/plan:
#Sepsis secondary to infected stage IV sacral pressure ulcer with chronic osteomyelitis of sacrum.
-General Surgery reconsulted for sacral ulcer wound debridement, called daughter to give consent, but went to , I tried calling the daughter again and she switched it to voicemail after 2 rings.
-Continue antibiotics
-ID following.
-Family does not want hospice as recommended.
#Acute on chronic anemia
-S/p 2 units PRBC, extra unit given in anticipation for OR today..
-Suspect subacute/chronic GI blood loss vs renal disease.
-Holding AC for now.
-Follow Hb.
-IV iron as needed.
-PPI for prophylaxis with Protonix 40 mg BID.
# End-stage renal disease
-Continue HD M/W/F
-Nephrology on board.
Type 2 diabetes mellitus
-Sliding scale Q6
#Essential hypertension
-Continue Norvasc, hydralazine and losartan.
#Paroxysmal A-fib
-Rate controlled
-Hold Eliquis with anemia.
# Right ear rims with healing stage 2 PI; 3 PI left heel healing blisters-from pressure
-Dry, healing, skin intact.
#TubeFeeding
-Nutrition is following.
#GI prophylaxis
-Continue PPI 40 mg twice daily.
DVT prophylaxis-SCDs
CODE STATUS-full code
Anticipated Discharge: > 48 hours
Subjective/Interval History
-
Date of Service: April 16, 2024
Patient seen and examined receiving tube feeding, in no acute cardiopulmonary distress. Remains nonverbal but nods to some of my questions.
Objective Data
-
Labs:
Laboratory Results
04/16/24 04/16/24
06:00 07:00
WBC Pending
Hgb Pending
Hct Pending
Plt Count Pending
Sodium Pending Pending
Potassium Pending Pending
Chloride Pending Pending
Carbon Dioxide Pending Pending
BUN Pending Pending
Creatinine Pending Pending
Glucose Pending Pending
Calcium Pending Pending
Vital Signs:
Vital Signs
Temp Pulse Resp BP Pulse Ox
98.2 F 79 16 136/47 100
04/16/24 07:24 04/16/24 07:24 04/16/24 07:24 04/16/24 07:24 04/16/24 07:24
I&O
04/15/24 04/16/24 04/17/24
06:59 06:59 06:59
Intake Total 0 / 0 1310 / 1310
Output Total 100 / 100
Balance 0 / 0 1210 / 1210
Review of Systems
-
Unable to obtain full review of systems at this time due to: Dementia and Patient Non-verbal
Physical Exam
-
General: No Apparent Distress, Comfortable and Appears Chronically Ill
HEENT: Normocephalic and Atraumatic
Respiratory: Clear to Auscultation; Negative Wheezes or Rhonchi
Cardiac: Regular Rhythm and S1/S2; Negative Murmur
GI: Soft, Nontender, Nondistended, Normal Bowel Sounds and Peg Tube
Musculoskeletal: No Cyanosis, No Edema and Other (soft heel boots in place)
Skin: Warm and Decubitus Ulcers (LARGE stage 4 with bone showing sacral PI ulcer--reviewed picture in chart)
Neuro: Awake
Psych: Calm
Data Reviewed
-
Labs: Labs Reviewed by me and Discussed with Physician
Old Records: Reviewed
[2024-04-16] MEDS: HEPARIN 5000 UNITS SC ×3 (09:16→23:30)
[2024-04-16] MEDS: APRESOLINE 75 MG TUBE ×3 (09:16→23:32)
[2024-04-16] MEDS: COZAAR 100 MG TUBE (09:17)
[2024-04-16] MEDS: VIMPAT 100 MG TUBE ×2 (09:17→20:44)
[2024-04-16] MEDS: NORVASC 10 MG TUBE (09:17)
[2024-04-16] MEDS: PREVACID 30 MG TUBE ×2 (09:17→20:41)
--- NOTE | 2024-04-16 09:24 | W.PN.UPDATE ---
Update Note
Progress Note Update
Attempted to call daughter Marcela (POA) to obtain surgical consent for I&D of sacral pressure wound, unable to reach, VM left.
[2024-04-16] MEDS: HYDROPHOR 1 APPLIC TOPICAL (09:28)
[2024-04-16] MEDS: DAKIN'S SOLUTION 0.125% 1/4 STRENGTH 1 ML TOPICAL (09:28)
--- NOTE | 2024-04-16 09:58 | CM ---
TC from Talita Gallagher form [facility] p# [phone] requesting additional information on referral.
Talita will reach out to daughter and brother and will f/u on referral.
--- NOTE | 2024-04-16 10:43 | W.PN.NEPH.PH ---
Today's Communication / Plan
-
HD tomorrow
Assessment/Plan
-
Assessment:
ESRD on HD tunneled dialysis catheter, MWF [facility]
Acute on chronic anemia likely from upper GI bleed on anticoagulants
sacral decub wound
leucocytosis
Paroxysmal A-fib
Type 2 diabetes with hyperglycemia
Elevated transaminase
Dysphagia status post PEG tube
HTN�benign multidrug
Hx CVA with immobility, dysphagia
Seizure disorder
Dementia�severe
CAD prior NSTEMI
Hyponatremia
Plan:
follow Hgb
transfuse as needed
HD tomorrow,orders provided
high dose ALURA with HD
Family does not wish to pursue hospice care although ongoing care has approached futility given significant comorbidities
they also wish for debridement surgery
-
-
Date of Service: April 16, 2024
CC / HPI / ROS
-
Chief Complaint:
ESRD
History of Present Illness:
hb low stable
BP stable
HD ESRD
Review of Systems:
non verbal today
no fever
Labs
-
Labs:
eGFR 27.37 04/15/24 04:28
Albumin 2.4 g/dl (3.5-5.0) L 04/07/24 22:22
Physical Exam
-
Vital Signs:
Vital Signs
Temp Pulse Resp BP Pulse Ox
98.2 F 79 16 136/47 100
04/16/24 07:24 04/16/24 09:16 04/16/24 07:24 04/16/24 09:16 04/16/24 07:24
[2024-04-16 11:49] LABS: Glucose - Point of Care 125 mg/dl (70-99)
[2024-04-16] MEDS: FERRLECIT 110 MG IV (13:11)
--- NOTE | 2024-04-16 14:04 | CM ---
CM following re: discharge planning.
Reviewed pt's chart. Per chart review, pt to OR today for Wound debridement toady, Tube feeding, HD in am
CM receives a phone call from [facility] of [facility] DENISE Tapianica [phone] and requested pt's clinical faxed to provided fax: [phone].
Pt is a LTC resident at [facility], on HD treatment MWF at [facility].
D/c plan: return back to [facility] for a LTC.
CM will follow with discharge plan updates as hospitalization progresses
--- NOTE | 2024-04-16 14:28 | W.PN.ID1 ---
Date of Service
Date of Service: April 16, 2024
Today's Communication
awaiting family consent for debridement
plan treatment for SSTI, treatment for osteomyelitis futile without plans for coverage of the bone (typically flap) and ostomy neither of which she is a candidate for
fine to continue zosyn for now, day 8 of therapy likely transition to augmentin 500/125 mg q 24 qPM x5 days post debridement
Assessment / Plan
Infected Sacral Decubitus Ulcer
ESRD on HD
decision for hospice rescinded
awaiting family consent for debridement
plan treatment for SSTI, treatment for osteomyelitis futile without plans for coverage of the bone (typically flap) and ostomy neither of which she is a candidate for
fine to continue zosyn for now, day 8 of therapy likely transition to augmentin 500/125 mg q 24 qPM x5 days post debridement
Chief Complaint
-: Other (sacral decubitus ulcer and possible osteomyelitis)
Subjective / Review of Systems
afebrile
bp stable
cbc pending today
bruxism noted
not responsive
Vital Signs / Physical Exam
Vital Signs
Vital Signs
Temp Pulse Resp BP Pulse Ox
98.2 F 79 16 136/47 100
04/16/24 07:24 04/16/24 09:16 04/16/24 07:24 04/16/24 09:16 04/16/24 07:24
Physical Exam
Constitutional: No Acute Distress
Cardiovascular: Regular Rate and S1/S2; Negative Murmur or Rub
Pulmonary: Clear and Symmetric; Negative Wheezes or Rales
Gastrointestinal: Soft, Non Tender, Non Distended and Normal Bowel Sounds
Skin: Warm and Dry; Negative Rash or Jaundice
Objective Data
Lab Data
Estimated Creat Clear Cancelled 04/16/24 14:06
Lactic Acid 1.1 mmol/L (0.7-2.0) 10/28/24 22:22
Total Bilirubin 0.2 mg/dl (0.2-1.3) 04/07/24 22:22
AST 44 U/L (14-36) H 04/07/24 22:22
ALT 23 U/L (0-35) 04/07/24 22:22
Alkaline Phosphatase 175 U/L (38-126) H 04/07/24 22:22
C-Reactive Protein > 270.00 mg/L (0.0-10.00) H 04/09/24 09:22
Most recent labs reviewed.
Micro Results:
04/10/24 06:46 Blood Culture - Final
Blood/Venous No Growth - Final Report
04/10/24 05:54 Blood Culture - Final
Blood/Venous No Growth - Final Report
04/07/24 23:58 Blood Culture - Final
Blood/Venous Coagulase neg. staphylococcus
Additional testing on request
Gram Stain - Final
04/08/24 00:44 Blood Culture - Final
Blood/Venous No Growth - Final Report
04/08/24 03:57 MRSA Screen - Final
Nose No Methicillin Resistant Staphylococcus aureus isolated.
[2024-04-16 15:14] VITALS: BP 128/40
[2024-04-16 16:07] LABS: % Basophils 1.4 % (0-2); % Immature Granulocytes 6.6 % (0-0.5); % Lymphocytes 17.7 % (20.5-51.1); % Monocytes 5.3 % (1.7-9.3); Absolute Basophils 0.2 10^3/uL (0-0.2); Absolute Eosinophils 0.9 10^3/uL (0-0.7); Absolute Lymphocytes 2.7 10^3/uL (1.2-3.4); Absolute Monocytes 0.8 10^3/uL (0.1-0.6); Absolute Neutrophils 9.7 10^3/uL (1.4-6.5); Hematocrit 30.4 % (37.0-47.0); Hemoglobin 10.1 g/dL (12.0-16.0); Mean Corp Hgb Conc. 33.2 g/dL (33.0-37.0); Mean Corpuscular Hgb 28.1 pg (27.0-31.0); Mean Corpuscular Volume 84.7 fL (81.0-99.0); Mean Platelet Volume 9.3 fL (7.4-10.4); Nucleated Red Blood Cells % 0 %; Platelet Count 188 10^3/uL (130-400); Red Blood Cell Count 3.59 10^6/uL (4.20-5.40); Red Cell Dist. Width 18.5 % (11.5-14.5); White Blood Cell Count 15.4 10^3/uL (4.8-10.8)
[2024-04-16 16:40] LABS: ALT (SGPT) 14 U/L (0-35); AST (SGOT) 39 U/L (14-36); Alkaline Phosphatase 151 U/L (38-126); Blood Urea Nitrogen 36 mg/dl (7-17); Calcium 9.1 mg/dl (8.4-10.2); Carbon Dioxide 27 mmol/L (22-30); Chloride 93 mmol/L (98-107); Direct Bilirubin 0.5 mg/dl (0.0-0.4); Estimated Creatinine Clearance 18 ml/min; Glucose 118 mg/dl (70-99); Potassium 4.6 mmol/L (3.5-5.1); Sodium 133 mmol/L (135-145); Total Bilirubin 0.5 mg/dl (0.2-1.3); Total Protein 6.5 g/dl (6.3-8.2); eGFR 17.95
[2024-04-16 17:03] LABS: Glucose - Point of Care 140 mg/dl (70-99)
[2024-04-16] MEDS: TYLENOL ORAL SOLUTION 650 MG TUBE (20:41)
[2024-04-16 23:25] LABS: Glucose - Point of Care 173 mg/dl (70-99)
[2024-04-16] MEDS: LANTUS 0.08 UNITS SC (23:28)
[2024-04-16] MEDS: NOVOLOG FLEXPEN-MODERATE RESISTANCE 1 UNITS SC (23:29)
[2024-04-16 23:50] VITALS: BP 153/48
[2024-04-17] MEDS: ZOSYN 50 IV ×3 (05:38→22:09)
[2024-04-17] MEDS: NOVOLOG FLEXPEN-MODERATE RESISTANCE SC ×3 (05:42→17:33)
[2024-04-17] MEDS: NOVOLOG FLEXPEN 5 UNITS SC ×2 (05:42→17:42)
[2024-04-17 05:43] LABS: Glucose - Point of Care 98 mg/dl (70-99)
[2024-04-17 07:52] VITALS: BP 144/59
[2024-04-17 08:37] LABS: Blood Urea Nitrogen 43 mg/dl (7-17); Calcium 8.9 mg/dl (8.4-10.2); Carbon Dioxide 29 mmol/L (22-30); Chloride 91 mmol/L (98-107); Estimated Creatinine Clearance 15 ml/min; Glucose 59 mg/dl (70-99); Potassium 3.7 mmol/L (3.5-5.1); Sodium 131 mmol/L (135-145); eGFR 14.11
[2024-04-17] MEDS: RETACRIT 10000 UNITS IV (09:21)
[2024-04-17] MEDS: RETACRIT 2000 UNITS IV (09:22)
[2024-04-17 09:23] LABS: Hematocrit 28.1 % (37.0-47.0); Hemoglobin 9.2 g/dL (12.0-16.0); Mean Corp Hgb Conc. 32.7 g/dL (33.0-37.0); Mean Corpuscular Hgb 28.1 pg (27.0-31.0); Mean Corpuscular Volume 85.9 fL (81.0-99.0); Platelet Count 542 10^3/uL (130-400); Red Blood Cell Count 3.27 10^6/uL (4.20-5.40); Red Cell Dist. Width 18.6 % (11.5-14.5); White Blood Cell Count 16.1 10^3/uL (4.8-10.8)
--- NOTE | 2024-04-17 09:25 | W.PN.HOSP.TC ---
Addendum entered and electronically signed by Rolly Ojeda MD 04/17/24 13:10:
I personally performed a history and physical exam of the patient and discussed management with the resident. I reviewed the resident's note and agree with the documented findings and plan of care HPI/CC except changes in documentation
73-year-old female with history of CVA and dementia status post PEG tube presented to the ER with a hemoglobin of 6.3.� Patient was admitted and discharged on March 30 with coffee ground emesis from PEG tube.
I personally performed a history and physical exam of the patient and discussed management with the resident. I reviewed the resident's note and agree with the documented findings and plan of care HPI/CC except changes in documentation
CVS S1 S2 normal
Chest CTA
Abd Soft NT
Patient awake but will not communicate with me, but able to nod for others
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
Continue antibiotics
Infectious disease recommendations requested
Surgery evaluation requested , tentatively for OR
Recommended hospice .Family doesn't want it.
called daughter today for consent however she was not reachable
# Acute on chronic anemia status post 1 unit of packed red blood cells
Possibly secondary to subacute GI blood loss and renal disease
Anticoagulation on hold secondary to anemia
Follow hemoglobin
Iron deficiency noted-IV iron
got another unit of blood 04/15/24
Patient had an endoscopy 03/04-grade a esophagitis with no bleeding. Gastrostomy present. Inflammatory tissue at the base with a clean-based ulcer. Duodenitis. Normal jejunum
Colonoscopy 01/02/24-18 mm polyp in the proximal ascending colon removed clip was placed. 3 mm polyp in the ascending colon removed resected and retrieved. 10 mm polyp in the sigmoid colon removed clip was placed. Stool in the entire examined
colon. Internal hemorrhoids.
I added PPI Via Tube BID
Since these tests were recent did not request GI evaluation
# Thrombocytosis likely secondary to infection
# End-stage renal disease/hyponatremia-nephrology following
# Type 2 diabetes-continue Lantus insulin 7 units daily and aspart 5 mg Q6
# Ibtkrjalwisz-iemzbasut-tstvcwwuc. �On amlodipine 10 Mg, clonidine 1 mg patch, hydralazine 75 Mg every 8 hours, losartan 100 mg daily
# Paroxysmal atrial fibrillation-Eliquis on hold secondary to anemia and need for debridement.
# Elevated transaminases
# Hyperlipidemia-restart atorvastatin with elevated LFTs. Rpt LFTS better
# Coronary artery disease with history of prior non-STEMI-
# Right ear Rims with stage II pressure injury-healing.Stage III pressure injury left heel healing blisters
# Dysphagia status post PEG tube
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
# History of DVT per chart
# Seizure disorder-continue Vimpat
# Severe dementia
# Hypoalbuminemia
# Nutrition- Tube feeds
# Ambulatory dysfunction- Bed bound.
# DVT Prophylaxis- ROLY
# Full code
Discussed with nursing and truck and transport mechanic
D/W Renal
Original Note:
Today's Communication/Plan
-
Continue hemodialysis
Tube feeding
Wound debridement when consent is given by daughter
Assessment / Plan
Assessment / Plan
Impression:69-year-old 3-year-old female with extensive past medical history notable for ESRD, coming in with fever and anemia from [address] [place] [address]. She was recently discharged 1 week ago. On exam she is otherwise well-appearing
with a rather large decubitus sacral ulcer with purulent and bloody drainage. She is febrile, but hemodynamically stable. No pulmonary findings. Marked leukocytosis.
Assessment/plan:
#Sepsis secondary to infected stage IV sacral pressure ulcer with chronic osteomyelitis of sacrum.
-Wound debridement when daughter is able to give consent.
-Continue antibiotics
-ID following.
-Family does not want hospice as recommended.
#Acute on chronic anemia
-S/p 2 units PRBC, extra unit given in anticipation for OR today..
-Suspect subacute/chronic GI blood loss vs renal disease.
-Holding AC for now.
-Follow Hb.
-IV iron as needed.
-PPI for prophylaxis with Protonix 40 mg BID.
# End-stage renal disease
-HD today, continue HD M/W/F from next week.
-Nephrology on board.
Type 2 diabetes mellitus
-Sliding scale Q6
#Essential hypertension
-Continue Norvasc, hydralazine and losartan.
#Paroxysmal A-fib
-Rate controlled
-Hold Eliquis with anemia.
# Right ear rims with healing stage 2 PI; 3 PI left heel healing blisters-from pressure
-Dry, healing, skin intact.
#TubeFeeding
-Nutrition is following.
#GI prophylaxis
-Continue PPI 40 mg twice daily.
DVT prophylaxis-SCDs
CODE STATUS-full code
Anticipated Discharge: > 48 hours
Subjective/Interval History
-
Date of Service: April 17, 2024
Patient was seen and examined, receiving HD. She remains nonverbal, nods to most questions, and tearful.
Objective Data
-
Labs:
Laboratory Results
04/17/24
08:13
WBC 16.1 H
Hgb 9.2 L
Hct 28.1 L
Plt Count 542 H D
Sodium 131 L
Potassium 3.7
Chloride 91 L
Carbon Dioxide 29
BUN 43 H
Creatinine 3.3 H
Glucose 59 L
Calcium 8.9
Vital Signs:
Vital Signs
Temp Pulse Resp BP Pulse Ox
98.6 F 72 18 144/59 100
04/17/24 07:52 04/17/24 07:52 04/17/24 07:52 04/17/24 07:52 04/17/24 07:52
I&O
04/16/24 04/17/24 04/18/24
06:59 06:59 06:59
Intake Total 1310 / 1310 980 / 980
Output Total 100 / 100
Balance 1210 / 1210 980 / 980
Review of Systems
-
Unable to obtain full review of systems at this time due to: Dementia and Patient Non-verbal
Physical Exam
-
General: No Apparent Distress, Comfortable and Appears Chronically Ill
HEENT: Normocephalic and Atraumatic
Respiratory: Clear to Auscultation; Negative Wheezes or Rhonchi
Cardiac: Regular Rhythm and S1/S2; Negative Murmur
GI: Soft, Nontender, Nondistended, Normal Bowel Sounds and Peg Tube
Musculoskeletal: No Cyanosis, No Edema and Other (soft heel boots in place)
Skin: Warm and Decubitus Ulcers (LARGE stage 4 with bone showing sacral PI ulcer--reviewed picture in chart)
Neuro: Awake
Psych: Calm
Data Reviewed
-
Labs: Labs Reviewed by me and Discussed with Physician
Old Records: Reviewed
[2024-04-17] MEDS: COZAAR 100 MG TUBE (11:22)
[2024-04-17] MEDS: NORVASC 10 MG TUBE (11:22)
[2024-04-17] MEDS: PREVACID 30 MG TUBE ×2 (11:22→20:30)
[2024-04-17] MEDS: APRESOLINE 75 MG TUBE ×2 (11:23→17:13)
[2024-04-17] MEDS: HEPARIN 5000 UNITS SC ×2 (11:24→17:13)
[2024-04-17] MEDS: VIMPAT 100 MG TUBE ×2 (11:29→20:30)
[2024-04-17] MEDS: DAKIN'S SOLUTION 0.125% 1/4 STRENGTH 473 ML TOPICAL (11:30)
[2024-04-17] MEDS: HYDROPHOR 1 APPLIC TOPICAL (11:30)
--- NOTE | 2024-04-17 11:33 | W.PN.NEPH.HD ---
Assessment
-
Seen on HD. no complaints. VSS, access ok
Progress Note - Hemodialysis
-
Date of Service: April 17, 2024
Duration: 30 minutes and 3 hours
Potassium Bath: 3
Calcium Bath: 2.5
Opti-Dialyzer: 160
Ultrafiltration: Other (1kg)
Blood Flow: 400
Dialysate Flow: 600
Heparin: no
EPO: 24039 units
--- NOTE | 2024-04-17 11:48 | CM ---
FREDY spoke with CAROLINA of [facility] DENISE Sanon [phone] she requested clinical and POA on file which was fax: [phone].
Please contact Talita when pt dc.
Pt continues HD MWF.
She has sacral wound.
Peg tube feedings remain.
Pt is a LTC resident at [facility], on HD treatment MWF at [facility].
[place]
report [phone]
fax [phone]
PLAN : return back to [facility] for a LTC.
[2024-04-17] MEDS: CATAPRES-TTS-1 0.1 MG TRANSDERM (12:19)
[2024-04-17 12:33] LABS: Glucose - Point of Care 89 mg/dl (70-99)
[2024-04-17] MEDS: NOVOLOG FLEXPEN SC (12:35)
[2024-04-17 15:13] VITALS: BP 152/54
--- NOTE | 2024-04-17 16:31 | W.PN.SURGUPD ---
Surgical Update
Surgical Update
Patient seen and examined. Noded head no when I asked if it was experiencing pain. She was agreeable to have me examine her wound when I requested.
With nursing assistance patient was turned onto the right lateral decubitus position.
Large sacral wound evaluated.
Large majority of wound bed with granulating healthy tissue.
Centrally there is exposed bone of the sacrococcygeal region as well as posterior sacrococcygeal fascia. Overlying this is where there is some eschar and devitalized buildup of fibrin. There is also some eschar/fibrin over the ischial tuberosities
No purulence or suspected deeper collections identified on examination. No malodor.
Agree with infectious disease correspondence.
There are no available curative or aggressive surgical treatment options for Mrs. Nettles.
The chronic sacral wound clearly has exposed sacrococcygeal bone, fascia and tendon. The areas of fibrin and eschar are predominantly over bone and tendon pressure points and not adjacent soft tissue.
Cleaned up a bit of the extra fibrotic buildup with sharp scissor excision but it is not possible to d�bride all eschar and fibrin due to the locations.
This is essentially an end stage decubitus wound.
There is no further role for surgical debridement.
Recommend applying Santyl to areas of eschar and fibrin.
Continue with Dakin's moistened gauze on wound bed for chronic contamination which will assist with limiting bacterial burden and hopefully minimize future infectious exacerbations.
Given patient's numerous comorbidities, bedbound status and risk factors which make wound healing impossible the only thing that we can offer going forward is local wound care and management of acute infectious exacerbations when then expectedly
occur.
Call placed to patients daughter in attempt to update her - went to voicemail.
okay for d/c back to technician terminal and repe[facility] care facility with local wound care from general surgery perspective
updated hospitalist
[2024-04-17] MEDS: FERRLECIT 110 MG IV (16:56)
[2024-04-17] MEDS: SANTYL OINTMENT 1 APPLIC TOPICAL (17:14)
[2024-04-17 17:40] LABS: Glucose - Point of Care 113 mg/dl (70-99)
[2024-04-17 23:48] VITALS: BP 153/52
[2024-04-18 00:25] LABS: Glucose - Point of Care 143 mg/dl (70-99)
[2024-04-18] MEDS: HEPARIN 5000 UNITS SC (00:27)
[2024-04-18] MEDS: LANTUS 0.07 UNITS SC (00:27)
[2024-04-18] MEDS: NOVOLOG FLEXPEN SC ×2 (00:29→12:53)
[2024-04-18] MEDS: APRESOLINE 75 MG TUBE ×3 (00:33→17:55)
[2024-04-18] MEDS: LIPITOR 20 MG TUBE (00:34)
[2024-04-18] MEDS: NOVOLOG FLEXPEN-MODERATE RESISTANCE SC ×3 (00:34→17:58)
[2024-04-18] MEDS: ZOSYN 50 IV ×3 (05:47→21:10)
[2024-04-18 05:52] LABS: Glucose - Point of Care 170 mg/dl (70-99)
[2024-04-18 06:00] VITALS: BMI 27.7
[2024-04-18] MEDS: NOVOLOG FLEXPEN 5 UNITS SC ×2 (06:00→17:59)
[2024-04-18] MEDS: NOVOLOG FLEXPEN-MODERATE RESISTANCE 1 UNITS SC (06:01)
[2024-04-18 07:43] VITALS: BP 142/43
[2024-04-18 07:58] LABS: Hematocrit 28.6 % (37.0-47.0); Hemoglobin 9.1 g/dL (12.0-16.0)
[2024-04-18 08:14] LABS: Sodium 131 mmol/L (135-145)
[2024-04-18 08:16] LABS: Carbon Dioxide 28 mmol/L (22-30); Chloride 93 mmol/L (98-107); Potassium 3.8 mmol/L (3.5-5.1)
[2024-04-18] MEDS: FLEXBUMIN 25% FOR HEMODIALYSIS 12.5 GRAMS IV (08:25)
[2024-04-18] MEDS: MANNITOL 25% 12.5 GRAMS IV (08:25)
[2024-04-18] MEDS: RETACRIT 10000 UNITS IV (08:27)
--- NOTE | 2024-04-18 08:43 | W.PN.NEPH.HD ---
Assessment
-
Patient seen on dialysis
Systolic blood pressure 126 at current UF
Baseline nonresponsive
HD catheter with good function
Progress Note - Hemodialysis
-
Date of Service: April 18, 2024
Duration: 3 hours
Potassium Bath: 3
Calcium Bath: 2.5
Opti-Dialyzer: 160
Ultrafiltration: Other (1kg as toelrated)
Blood Flow: 400
Dialysate Flow: 600
Heparin: none
EPO: 10K
[2024-04-18 11:13] LABS: % Basophils 1.2 % (0-2); % Immature Granulocytes 5.6 % (0-0.5); % Lymphocytes 17.8 % (20.5-51.1); % Monocytes 6.6 % (1.7-9.3); % Neutrophils 63.8 % (42.2-75.2); Absolute Basophils 0.2 10^3/uL (0-0.2); Absolute Eosinophils 0.9 10^3/uL (0-0.7); Absolute Monocytes 1.1 10^3/uL (0.1-0.6); Absolute Neutrophils 10.9 10^3/uL (1.4-6.5)
--- NOTE | 2024-04-18 11:31 | W.PN.HOSP.TC ---
Addendum entered and electronically signed by Rolly Ojeda MD 04/18/24 15:55:
73-year-old female with history of CVA and dementia status post PEG tube presented to the ER with a hemoglobin of 6.3.� Patient was admitted and discharged on March 30 with coffee ground emesis from PEG tube.
I personally performed a history and physical exam of the patient and discussed management with the resident. I reviewed the resident's note and agree with the documented findings and plan of care HPI/CC except changes in documentation
CVS S1 S2 normal
Chest CTA
Abd Soft NT
Patient awake but will not communicate with me, but able to nod for others
Wound on the back - Debrided and most areas with good granulation tissue.
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
Continue antibiotics
Dr. Yost debrided the wound at bedside yesterday. Good granulation tissue noted except for deep tendon send bony area which is hard to debride.
Continue antibiotics for 5 more days at discharge.
I have restarted her Eliquis
# Acute on chronic anemia status post 1 unit of packed red blood cells
Possibly secondary to subacute GI blood loss and renal disease
Anticoagulation on hold secondary to anemia
Follow hemoglobin
Iron deficiency noted-IV iron
got another unit of blood 04/15/24
Patient had an endoscopy 03/04-grade a esophagitis with no bleeding. Gastrostomy present. Inflammatory tissue at the base with a clean-based ulcer. Duodenitis. Normal jejunum
Colonoscopy 01/02/24-18 mm polyp in the proximal ascending colon removed clip was placed. 3 mm polyp in the ascending colon removed resected and retrieved. 10 mm polyp in the sigmoid colon removed clip was placed. Stool in the entire examined
colon. Internal hemorrhoids.
I added PPI Via Tube BID
Since these tests were recent did not request GI evaluation
# Thrombocytosis likely secondary to infection
# End-stage renal disease/hyponatremia-nephrology following
# Type 2 diabetes-continue Lantus insulin 7 units daily and aspart 5 mg Q6
# Ugxkfxwxymjp-tovvanmpd-telrjqzmh. �On amlodipine 10 Mg, clonidine 1 mg patch, hydralazine 75 Mg every 8 hours, losartan 100 mg daily
# Paroxysmal atrial fibrillation-Eliquis on hold secondary to anemia and need for debridement.
# Elevated transaminases
# Hyperlipidemia-restart atorvastatin with elevated LFTs. Rpt LFTS better
# Coronary artery disease with history of prior non-STEMI-
# Right ear Rims with stage II pressure injury-healing.Stage III pressure injury left heel healing blisters
# Dysphagia status post PEG tube
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
# History of DVT per chart
# Seizure disorder-continue Vimpat
# Severe dementia
# Hypoalbuminemia
# Nutrition- Tube feeds
# Ambulatory dysfunction- Bed bound.
# DVT Prophylaxis- Eliquis
# Full code
Discussed with renal adn ID-OK for discharge
Outpatient follow-up with hematology oncology if family wishes for workup of leukocytosis
Discussed with patient's daughter and updated regarding mom's condition and that she will be discharged back to [facility] tomorrow.
Original Note:
Today's Communication/Plan
-
HD today
Continue Eliquis
Continue antibiotics
Most likely discharge over the weekend.
Assessment / Plan
Assessment / Plan
Impression:69-year-old 3-year-old female with extensive past medical history notable for ESRD, coming in with fever and anemia from [address] [place] [address]. She was recently discharged 1 week ago. On exam she is otherwise well-appearing
with a rather large decubitus sacral ulcer with purulent and bloody drainage. She is febrile, but hemodynamically stable. No pulmonary findings. Marked leukocytosis.
Assessment/plan:
#Sepsis secondary to infected stage IV sacral pressure ulcer with chronic osteomyelitis of sacrum.
-Large sacral wound debrided on bedside 04/17, all eschar and fibrin debridement not possible given location and exposed sacrococcygeal bone, fascia and tendon past surgery.
-Continue antibiotics
-ID following.
-Family does not want hospice as recommended.
#Acute on chronic anemia
-S/p 2 units PRBC, extra unit given in anticipation for OR today..
-Suspect subacute/chronic GI blood loss vs renal disease.
-Holding AC for now.
-Follow Hb.
-IV iron as needed.
-PPI for prophylaxis with Protonix 40 mg BID.
# End-stage renal disease
-HD today, continue HD M/W/F from next week.
-Nephrology on board.
Type 2 diabetes mellitus
-Sliding scale Q6
#Essential hypertension
-Continue Norvasc, hydralazine and losartan.
#Paroxysmal A-fib
-Rate controlled
-Continue Eliquis
# Right ear rims with healing stage 2 PI; 3 PI left heel healing blisters-from pressure
-Dry, healing, skin intact.
#TubeFeeding
-Nutrition is following.
#GI prophylaxis
-Continue PPI 40 mg twice daily.
DVT prophylaxis-SCDs
CODE STATUS-full code
Anticipated Discharge: 24 - 48 hours
Subjective/Interval History
-
Date of Service: April 18, 2024
Patient seen and examined on HD. Verbally nonresponsive, but nods to most questions.
Objective Data
-
Labs:
Laboratory Results
04/18/24
07:18
WBC 17.0 H
Hgb 9.1 L
Hct 28.6 L
Sodium 131 L
Potassium 3.8
Chloride 93 L
Carbon Dioxide 28
Vital Signs:
Vital Signs
Temp Pulse Resp BP Pulse Ox
98.1 F 76 17 142/43 100
04/18/24 07:43 04/18/24 07:43 04/18/24 07:43 04/18/24 07:43 04/18/24 07:43
I&O
04/17/24 04/18/24 04/19/24
06:59 06:59 06:59
Intake Total 980 / 980 1000 / 1000
Balance 980 / 980 1000 / 1000
Review of Systems
-
Unable to obtain full review of systems at this time due to: Dementia and Patient Non-verbal
Physical Exam
-
General: No Apparent Distress, Comfortable and Appears Chronically Ill
HEENT: Normocephalic and Atraumatic
Respiratory: Clear to Auscultation; Negative Wheezes or Rhonchi
Cardiac: Regular Rhythm and S1/S2; Negative Murmur
GI: Soft, Nontender, Nondistended, Normal Bowel Sounds and Peg Tube
Musculoskeletal: No Cyanosis, No Edema and Other (soft heel boots in place)
Skin: Warm and Decubitus Ulcers (LARGE stage 4 with bone showing sacral PI ulcer--reviewed picture in chart)
Neuro: Awake
Psych: Calm
Data Reviewed
-
Labs: Labs Reviewed by me and Discussed with Physician
Old Records: Reviewed
[2024-04-18] MEDS: HEPARIN 4200 UNITS INTRACATH (11:34)
[2024-04-18] MEDS: PREVACID 30 MG TUBE ×2 (11:47→20:06)
[2024-04-18] MEDS: NORVASC 10 MG TUBE (11:47)
[2024-04-18] MEDS: COZAAR 100 MG TUBE (11:47)
[2024-04-18] MEDS: ELIQUIS 5 MG TUBE ×2 (11:47→20:05)
[2024-04-18] MEDS: DAKIN'S SOLUTION 0.125% 1/4 STRENGTH 473 ML TOPICAL (11:48)
[2024-04-18] MEDS: SANTYL OINTMENT 1 APPLIC TOPICAL (11:48)
[2024-04-18] MEDS: HYDROPHOR 1 APPLIC TOPICAL (11:48)
[2024-04-18] MEDS: VIMPAT 100 MG TUBE ×2 (11:51→20:06)
[2024-04-18 12:03] LABS: Glucose - Point of Care 70 mg/dl (70-99)
--- NOTE | 2024-04-18 12:23 | WOUNDNOTE ---
FABIENNE RN: Followed up today along with nurse Megan and Leila hernandez. Post bedside surgical debridement of Sacrum by Dr. Yost. Appreciate Surgeon's note, end stage decubitus wound, no further surgical debridement at this time. Sacral wound much
shrimp cleaner with adherent morrison eschar at base near exposed bone. Santyl and Dakin's WTD applied. L ischium with healing PI, silicone foam changed. R ischium with healed PI, scar in place. Internal fecal abattoir manager in use, Peg tube for feedings. Heels also
improved from last seen, adhesive foams changed and TruVue lite boots in use. Patient remains on air mattress with turning schedule. Despite preventative measures suspect patient will develop additional PI's due to Co morbidities.
[2024-04-18] MEDS: FERRLECIT 110 MG IV (13:13)
[2024-04-18] MEDS: HEPARIN SC (13:14)
[2024-04-18 15:19] VITALS: BP 151/52
--- NOTE | 2024-04-18 15:56 | CM ---
LM with [facility] APR Talita [phone] to say patient will be dc tomorrow to [facility].
Pt continues HD MWF.
She has sacral wound care.
Peg tube feedings remain.
Pt is a LTC resident at [facility], on HD treatment MWF at [facility]
LM with Dgt Marcela and spouse Art saying pt to be dc tomorrow to [facility].
Will need ambulance.
[facility]
report [phone]
fax [phone]
PLAN : return to [facility] for a LTC.
[2024-04-18 17:59] LABS: Glucose - Point of Care 144 mg/dl (70-99)
--- NOTE | 2024-04-18 18:08 | PTCARENOTE ---
Pt had HD during shift, vital signs stable. Wound nurse in to see patient during shift- no new orders. Turned q2hrs. Continues on fecal mgmt with 300ml output this shift.
[2024-04-18 23:33] VITALS: BP 130/47
[2024-04-19 00:12] LABS: Glucose - Point of Care 156 mg/dl (70-99)
[2024-04-19] MEDS: LANTUS 0.07 UNITS SC (00:14)
[2024-04-19] MEDS: LIPITOR 20 MG TUBE (00:15)
[2024-04-19] MEDS: APRESOLINE 75 MG TUBE ×3 (00:15→15:57)
[2024-04-19] MEDS: NOVOLOG FLEXPEN 5 UNITS SC ×2 (00:16→12:44)
[2024-04-19] MEDS: NOVOLOG FLEXPEN-MODERATE RESISTANCE 1 UNITS SC ×2 (00:18→12:44)
[2024-04-19] MEDS: ZOSYN 50 IV ×2 (05:28→14:07)
[2024-04-19 06:00] VITALS: BMI 28.2
[2024-04-19 06:11] LABS: Glucose - Point of Care 128 mg/dl (70-99)
[2024-04-19] MEDS: NOVOLOG FLEXPEN-MODERATE RESISTANCE SC (06:17)
[2024-04-19] MEDS: NOVOLOG FLEXPEN SC (06:17)
[2024-04-19] MEDS: DAKIN'S SOLUTION 0.125% 1/4 STRENGTH TOPICAL (07:55)
[2024-04-19] MEDS: SANTYL OINTMENT TOPICAL (07:56)
[2024-04-19 08:45] VITALS: BP 148/49
[2024-04-19 08:57] LABS: Glucose - Point of Care 136 mg/dl (70-99)
[2024-04-19 08:59] LABS: Hematocrit 30.1 % (37.0-47.0); Hemoglobin 9.2 g/dL (12.0-16.0)
--- NOTE | 2024-04-19 09:07 | W.PN.NEPH.PH ---
Today's Communication / Plan
-
Observe
Next dialysis will be on Sunday
Assessment/Plan
-
Assessment:
ESRD on HD tunneled dialysis catheter, MWF [facility]
Acute on chronic anemia likely from upper GI bleed on anticoagulants
sacral decub wound
leucocytosis
Paroxysmal A-fib
Type 2 diabetes with hyperglycemia
Elevated transaminase
Dysphagia status post PEG tube
HTN�benign multidrug
Hx CVA with immobility, dysphagia
Seizure disorder
Dementia�severe
CAD prior NSTEMI
Hyponatremia
Plan:
follow Hgb
transfuse as needed
Next HD will be Sunday
high dose LAURA with HD
Family does not wish to pursue hospice care although ongoing care has approached futility given significant comorbidities
they also wish for debridement surgery
-
-
Date of Service: April 19, 2024
CC / HPI / ROS
-
Chief Complaint:
ESRD
History of Present Illness:
hgb low stable 9.2
BP stable
HD ESRD
Review of Systems:
non verbal today
no fever
Labs
-
Labs:
WBC 17.0 10^3/uL (4.8-10.8) H 04/18/24 07:18
RBC 3.27 10^6/uL (4.20-5.40) L 04/17/24 08:13
Hgb 9.2 g/dL (12.0-16.0) L 04/19/24 08:49
Hct 30.1 % (37.0-47.0) L 04/19/24 08:49
Plt Count 542 10^3/uL (130-400) H D 04/17/24 08:13
Sodium 131 mmol/L (135-145) L 04/18/24 07:18
Potassium 3.8 mmol/L (3.5-5.1) 04/18/24 07:18
Chloride 93 mmol/L (98-107) L 04/18/24 07:18
Carbon Dioxide 28 mmol/L (22-30) 04/18/24 07:18
BUN 43 mg/dl (7-17) H 04/17/24 08:13
Creatinine 3.3 mg/dL (0.6-1.0) H 04/17/24 08:13
eGFR 14.11 04/17/24 08:13
Glucose 59 mg/dl (70-99) L 04/17/24 08:13
Calcium 8.9 mg/dl (8.4-10.2) 04/17/24 08:13
Albumin 3.0 g/dl (3.5-5.0) L 04/16/24 16:11
Physical Exam
-
Vital Signs:
Vital Signs
Temp Pulse Resp BP Pulse Ox
99.2 F 70 18 130/47 99
04/18/24 23:33 04/18/24 23:33 04/18/24 23:33 04/18/24 23:33 04/18/24 23:33
Cardiovascular:: Regular rate and rhythm
Lung Excursion:: Normal
Abdomen:: Nontender and Soft
Bowel Sounds:: Normal
Extremity Edema:: +1: Bilateral:
Castañeda Catheter: No
[2024-04-19] MEDS: ELIQUIS 5 MG TUBE (09:13)
[2024-04-19] MEDS: COZAAR 100 MG TUBE (09:13)
[2024-04-19] MEDS: NORVASC 10 MG TUBE (09:13)
[2024-04-19] MEDS: HYDROPHOR 1 APPLIC TOPICAL (09:14)
[2024-04-19] MEDS: PREVACID 30 MG TUBE (09:14)
[2024-04-19] MEDS: VIMPAT 100 MG TUBE (09:17)
--- NOTE | 2024-04-19 10:40 | CM ---
Addendum entered by SHAILESH Araiza 04/19/24 14:41:
Per Josefina send clinical to her on patient stay at .
Original Note:
PER attending plan discharge today. Medical necessity and transport forms on chart. freight rate clerk to set up ambulance. Spoke to Josefina , SNF liaison who confirms readmit to [facility] today.
--- NOTE | 2024-04-19 11:31 | W.PN.HOSP.TC ---
Addendum entered and electronically signed by Rolly Ojeda MD 04/19/24 14:29:
More than 30 minutes spent in discharge including
Final examination of the patient
Summarizing hospital stay
Instructions for continuing care to all relevant caregivers
Preparation of discharge records, prescriptions, and referral forms
Total time spent (in minutes): 37 min
Original Note:
Today's Communication/Plan
-
Discharge to [place] if C diff Neg
Assessment / Plan
Assessment / Plan
73-year-old female with history of CVA and dementia status post PEG tube presented to the ER with a hemoglobin of 6.3.� Patient was admitted and discharged on March 30 with coffee ground emesis from PEG tube.
CVS S1 S2 normal
Chest CTA
Abd Soft NT
Patient awake but will not communicate with me,
Wound on the back - Debrided and most areas with good granulation tissue.
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
Continue antibiotics
Dr. Yost debrided the wound at bedside yesterday. Good granulation tissue noted except for deep tendon send bony area which is hard to debride.
Continue antibiotics for 5 more days at discharge.
I have restarted her Eliquis
# Acute on chronic anemia status post 2 unit of packed red blood cells
Possibly secondary to subacute GI blood loss and renal disease
Anticoagulation restarted
Follow hemoglobin
Iron deficiency noted-IV iron
Patient had an endoscopy 03/04-grade a esophagitis with no bleeding. Gastrostomy present. Inflammatory tissue at the base with a clean-based ulcer. Duodenitis. Normal jejunum
Colonoscopy 01/02/24-18 mm polyp in the proximal ascending colon removed clip was placed. 3 mm polyp in the ascending colon removed resected and retrieved. 10 mm polyp in the sigmoid colon removed clip was placed. Stool in the entire examined
colon. Internal hemorrhoids.
I added PPI Via Tube BID
Since these tests were recent did not request GI evaluation
# Loose stools- Will check C diff.
# Loose stools- Looks like pt ws on Imodium before admission. If C diff neg will send pt on that.
# Thrombocytosis likely secondary to infection
# End-stage renal disease/hyponatremia-nephrology following
# Type 2 diabetes-continue Lantus insulin 7 units daily and aspart 5 mg Q6
# Mddqfyhstbss-gdcoapqye-grggkhwzu. �On amlodipine 10 Mg, clonidine 1 mg patch, hydralazine 75 Mg every 8 hours, losartan 100 mg daily
# Paroxysmal atrial fibrillation-Eliquis on hold secondary to anemia and need for debridement.
# Elevated transaminases
# Hyperlipidemia-restart atorvastatin with elevated LFTs. Rpt LFTS better
# Coronary artery disease with history of prior non-STEMI-
# Right ear Rims with stage II pressure injury-healing.Stage III pressure injury left heel healing blisters
# Dysphagia status post PEG tube
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
# History of DVT per chart
# Seizure disorder-continue Vimpat
# Severe dementia
# Hypoalbuminemia
# Nutrition- Tube feeds
# Ambulatory dysfunction- Bed bound.
# DVT Prophylaxis- Eliquis
# Full code
D/W RN
D/W Case management
Spoke to daughter yesterday
Anticipated Discharge: Today
Subjective/Interval History
-
Date of Service: April 19, 2024
Objective Data
-
Labs:
Laboratory Results
04/19/24
08:49
Hgb 9.2 L
Hct 30.1 L
Vital Signs:
Vital Signs
Temp Pulse Resp BP Pulse Ox
99 F 70 18 145/49 96
04/19/24 08:45 04/19/24 09:13 04/19/24 08:45 04/19/24 09:13 04/19/24 10:35
I&O
04/18/24 04/19/24 04/20/24
06:59 06:59 06:59
Intake Total 1000 / 1000 1600 / 1600
Balance 1000 / 1000 1600 / 1600
[2024-04-19 12:34] LABS: Glucose - Point of Care 158 mg/dl (70-99)
[2024-04-19] MEDS: IMODIUM LIQUID 2 MG TUBE ×2 (12:45→15:57)
[2024-04-19] MEDS: FLUSH (NSS) 1 FLUSH IV (14:07)
--- NOTE | 2024-04-19 14:21 | W.PN.ID1 ---
Date of Service
Date of Service: April 19, 2024
Today's Communication
switched to augmentin 500/125 mg q 24 qPM x5 days post debridement 04/17-04/22
stable for dc from ID perspective
prognosis grim, have recommended hospice however family not accepting of her condition
Assessment / Plan
Infected Sacral Decubitus Ulcer
ESRD on HD
plan treatment for SSTI, treatment for osteomyelitis futile without plans for coverage of the bone (typically flap) and ostomy neither of which she is a candidate for
c difficle negative, likely antibiotic associated diarrhea and/or related to tube feeds, judicious imodium is reasonable - I ordered a single dose
switched to augmentin 500/125 mg q 24 qPM x5 days post debridement 04/17-04/22
stable for dc from ID perspective
prognosis grim, have recommended hospice however family not accepting of her condition
Chief Complaint
-: Other (sacral decubitus ulcer and possible osteomyelitis)
Subjective / Review of Systems
afebrile
bp stable
c difficile was sent and was negative
Vital Signs / Physical Exam
Vital Signs
Vital Signs
Temp Pulse Resp BP Pulse Ox
99 F 70 18 145/49 96
04/19/24 08:45 04/19/24 09:13 04/19/24 08:45 04/19/24 09:13 04/19/24 10:35
Physical Exam
Constitutional: No Acute Distress
Cardiovascular: Regular Rate
Pulmonary: Symmetric and Rales
Gastrointestinal: Non Distended
Skin: Dry; Negative Rash or Jaundice
Neurological: Negative Awake
Objective Data
Lab Data
Lab Results
04/19/24 08:49
04/18/24 07:18
Estimated Creat Clear 15 ml/min 04/17/24 08:13
Lactic Acid 1.1 mmol/L (0.7-2.0) 04/07/24 22:22
Total Bilirubin 0.5 mg/dl (0.2-1.3) 04/16/24 16:11
AST 39 U/L (14-36) H 04/16/24 16:11
ALT 14 U/L (0-35) 04/16/24 16:11
Alkaline Phosphatase 151 U/L (38-126) H 04/16/24 16:11
C-Reactive Protein > 270.00 mg/L (0.0-10.00) H 04/09/24 09:22
Most recent labs reviewed.
Micro Results:
04/19/24 13:10 C. difficile GDH Antigen & Toxins - Pending
Feces/Stool
04/10/24 06:46 Blood Culture - Final
Blood/Venous No Growth - Final Report
04/10/24 05:54 Blood Culture - Final
Blood/Venous No Growth - Final Report
04/07/24 23:58 Blood Culture - Final
Blood/Venous Coagulase neg. staphylococcus
Additional testing on request
Gram Stain - Final
04/08/24 00:44 Blood Culture - Final
Blood/Venous No Growth - Final Report
04/08/24 03:57 MRSA Screen - Final
Nose No Methicillin Resistant Staphylococcus aureus isolated.
--- NOTE | 2024-04-19 14:28 | W.DS.TRANS ---
Addendum entered and electronically signed by Rolly Ojeda MD 04/19/24 15:56:
Dictation- [id number]
Original Note:
DC Summary - Interpretive Program Coordinator
-
Discharge Instructions:
Discharge Diagnosis/Procedures Sepsis
Infected end-stage sacral decubitus ulcer
Chronic osteomyelitis of sacrum
Acute on chronic anemia,
End-stage renal disease
Type 2 diabetes mellitus
Essential hypertension
Paroxysmal A-fib
Hyperlipidemia
CAD
Right hearing with stage III pressure injury
Dysphagia
CVA
DVT
Seizure
Dementia
Hypoalbuminemia
Ambulatory dysfunction.
Diet Tube feeding
Additional Diets Nepro with carb steady 50 mL/h with 25 mL/h of
free water flushes
Activity As tolerated,With assistance
Driving Restrictions No driving
Blood Work CBC, BMP 3 days
Other Services OT,PT
Instructions:
Stand-Alone Forms:
Changes to Home Medications: Yes
Discharge Medications:
DC Medications w/original date entered in [employer]
amlodipine 10 mg tablet (Norvasc) 10 mg feeding tube DAILY Blood Pressure 12/27/23
atorvastatin 20 mg tablet (Lipitor) 20 mg feeding tube HS High Cholesterol 12/27/23
clonidine 0.1 mg/24 hr weekly transdermal patch 1 patch transdermal TH Blood Pressure 12/27/23
lacosamide 10 mg/mL oral solution (Vimpat) 100 mg feeding tube BID Seizures 12/27/23
apixaban 5 mg tablet (Eliquis) 5 mg feeding tube BID Blood Clot Prevention/Tx #1 tab 01/03/24
acetaminophen 325 mg tablet 650 mg feeding tube Q6HPRN PRN mild pain/fever>100.4 03/26/24
magnesium hydroxide 400 mg/5 mL oral suspension (Milk of Magnesia) 30 ml feeding tube [id number] PRN if no bm x 3 days 03/26/24
pantoprazole 40 mg granules delayed-release for susp in packet (Protonix) 40 mg feeding tube BID Gastrointestinal Issue 03/26/24
hydralazine 50 mg tablet 75 mg feeding tube Q8H Blood Pressure 03/28/24
insulin aspart U-100 100 unit/mL (3 mL) subcutaneous pen 5 unit SC Q6H Diabetes 03/28/24
albumin, human 25 % 25 % intravenous solution (Flexbumin) 12.5 g IV HD-Q1HPRN PRN SBP<90 #100 mL 04/18/24
amoxicillin 500 mg-potassium clavulanate 125 mg tablet (Augmentin) 1 tab feeding tube DAILY 5 days #5 tabs 04/18/24
collagenase clostridium histo. 250 unit/gram topical ointment (Santyl) 1 applic topical DAILY Infection #30 grams 04/18/24
sodium hypochlorite 0.125 % solution (Dakin's Solution) 1 applic topical DAILY Wound infection #0 mL 04/18/24
white petrolatum 42 % topical ointment (Hydrophor) 1 applic topical DAILY #454 grams 04/18/24
insulin glargine 100 unit/mL subcutaneous solution 7 unit (0.07 mL) SC DAILY Diabetes #0 mL 04/19/24
loperamide 1 mg/7.5 mL oral liquid 2 mg (15 mL) feeding tube Q6HPRN PRN loose stools #0 mL 04/19/24
losartan 100 mg tablet 100 mg feeding tube DAILY Blood pressure #0 tabs 04/19/24
Home Medication Changes
Loperamide changed to every 6 hours
Lantus changed to 7 units
Amoxicillin is new
Pending Results: No
[2024-04-19] MEDS: AUGMENTIN 500 MG/125 MG 1 TABLET PO (14:44)
[2024-04-19] MEDS: FERRLECIT 110 MG IV (14:44)
[2024-04-19 16:37] VITALS: BP 135/51
== END 2024-04-19 17:51 | DRG 871 ==
LOC: 3 WEST ACU 02:56
PROVIDERS: Internal Medicine; Specialist; Student in an Organized Health Care Education/Training Program; ADMITTING PHYSICIAN Internal Medicine; ATTENDING PHYSICIAN Hospitalist; CONSULT PHYSICIAN Internal Medicine Infectious Disease; CONSULT PHYSICIAN Specialist; CONSULT PHYSICIAN Surgery; EMERGENCY PHYSICIAN Emergency Medicine; FAMILY PHYSICIAN Internal Medicine
PROC: 30233N1 Transfusion of Nonautologous Red Blood Cells into Peripheral Vein, Percutaneous Approach (ICD-10-PCS; 2024-04-08)
DX: A41.9 Sepsis, unspecified organism (principal); G93.41 Metabolic encephalopathy; L89.154 Pressure ulcer of sacral region, stage 4; L89.623 Pressure ulcer of left heel, stage 3; N18.6 End stage renal disease; R53.2 Functional quadriplegia; I12.0 Hypertensive chronic kidney disease with stage 5 chronic kidney disease or end stage renal disease; E87.1 Hypo-osmolality and hyponatremia; D62 Acute posthemorrhagic anemia; M46.28 Osteomyelitis of vertebra, sacral and sacrococcygeal region; E11.22 Type 2 diabetes mellitus with diabetic chronic kidney disease; E11.69 Type 2 diabetes mellitus with other specified complication; D63.1 Anemia in chronic kidney disease; I48.0 Paroxysmal atrial fibrillation; I25.10 Atherosclerotic heart disease of native coronary artery without angina pectoris; R13.10 Dysphagia, unspecified; T82.7XXA Infection and inflammatory reaction due to other cardiac and vascular devices, implants and grafts, initial encounter; Y82.8 Other medical devices associated with adverse incidents; Z79.4 Long term (current) use of insulin; Z99.2 Dependence on renal dialysis; Z93.1 Gastrostomy status
CPT/HCPCS: 36430; 71045; 80048; 80051; 80053; 80202; 82248; 82550; 82962; 83540; 83550; 83605; 83735; 85004; 85014; 85018; 85025; 85027; 86140; 86850; 86900; 86901; 86920; 87040; 87070; 87147; 87150; 87205; 87324; 87340; 87449; 96365; 99291; G0257; J2916; P9016; P9047; Q5106

== ENCOUNTER 2024-05-30 18:06 | Inpatient (IN) | payer MEDICARE, BC, SELFPAY ==
[2024-05-30] VITALS (62 sets, daily range): BP systolic 42–213; BP diastolic 15–91; PULSE 60–64; BMI 27.3
[2024-05-30 15:51] LABS: Glucose - Point of Care 255 mg/dl (70-99)
[2024-05-30] MEDS: LEVOPHED 250 IV (15:56)
--- NOTE | 2024-05-30 16:00 | ED.GENMED ---
History of Present Illness
General
Chief Complaint: CODE
Source: ambulance crew
Exam Limitations: clinical condition
Time Seen by Provider: 05/30/24 15:41
History of Present Illness
History of Present Illness:
73-year-old female who presents after she had a cardiac arrest. EMS reports that the patient was on dialysis when she vomited and subsequent became unresponsive. They arrived and found her to be asystolic. She was intubated and shortly after that
did regain a pulse. The patient did receive 5 rounds of epinephrine. Patient arrives intubated. Patient history of end-stage renal disease, dementia. She is not ambulatory. She has a history of A-fib and CHF. She also has a history of a large
sacral decubitus ulcers. Previous discharge summary reveals she is anticoagulated.
Past History
Past History
ED Past Medical History: Arrthythmia (Atrial fibrillation), NIDDM, Renal failure, Seizures and Other (Dementia, dysphagia, G-tube, anemia, large decubitus ulcer, sepsis, osteomyelitis of the sacrum,)
ED Past Surgical History: Other (Gastrostomy tube, left upper chest dialysis port)
Social History
Tobacco: Non-smoker
Alcohol: None
Drug: None
Personal:
Living: [facility]
Employment: Not employed
Family History
Family History: Unable to obtain (Nonverbal)
Phy Exam
Physical Exam
Physical Exam:
CONSTITUTIONAL Patient unresponsive and intubated..
HEAD atraumatic, normocephalic.
NECK normal range of motion, Trachea midline, no jugular venous distention.
RESPIRATORY CHEST No respiratory distress noted, Chest expansion equal, Bilateral breath sounds clear.
CARDIOVASCULAR faint carotid pulse palpated
ABDOMEN No distention.
BACK large sacral decubitus ulcer
UPPER EXTREMITY poor perfusion distally
LOWER EXTREMITY poor perfusion distally
NEURO GCS 3 T
Course
Orders/Labs/Results
Orders:
Orders
05/30/24
Electrocardiogram (*1) Stat
Comment: ALREADY DONE ED
05/30/24 15:31
Electrocardiogram (*1) Urgent
Reason for Study: Other
Other Reason for Exam: cardiac arrest
Cardiac Monitoring- Treatment ONCE
EKG- Treatment ONCE
EKG- Treatment ONCE
IV Insert/Care/Rem.- Treatment PRN
O2 Therapy [RESP] Urgent
Titrate/Wean O2 to maintain O2 sat greater than (%): 93
Special Instructions: TO MAINTAIN CONTINUOUS O2 SATS >/= 93%
Pulse Ox/cont/shift [RESP] Urgent
Quantity: 1
Special Instructions: continuous pulse ox
05/30/24 15:32
Cr Chest Portable [CR Chest Portable - 1 View] Stat
Comment:
Reason For Exam: intubation
Reason Study Needs to be Portable: Unable to Transport
05/30/24 15:34
NORepinephrine 4 MG/250 ML [Levophed] 4 mg in 250 ml .ROUTE .STK-MED
05/30/24 15:50
Complete Blood Count/With Diff Urgent
Comprehensive Metabolic Panel Urgent
Lactic Acid Q4H
Comment: WITH 1ST SET OF BLOOD CULTURES,CANCEL 2ND LACTIC ACID IF FIRST <2
Lipase Urgent
Manual Differential Urgent
NT-proBNP Urgent
Prothrombin Time Urgent
Troponin I Urgent
Venous Blood Gas Urgent
%Oxygen/Room Air: unable to obtain
Blood Culture Urgent
FERNANDO Source: Blood/Venous
Specimen Description:
05/30/24 15:56
NORepinephrine 4 MG/250 ML [Levophed] 4 mg in 250 ml IV PER PROTOCOL
05/30/24 15:58
EPINEPHrine 4 mg/250 mL NSS [Adrenalin] 4 mg in 250 ml .ROUTE .STK-MED
05/30/24 16:06
EPINEPHrine 4 mg/250 mL NSS [Adrenalin] 4 mg in 250 ml IV PER PROTOCOL
05/30/24 16:08
Phenylephrine HCl/0.9% NaCl [Tyrel-Synephrine] 200 mcg IV NOW STA
05/30/24 16:11
Sodium Bicarbonate 50 meq IV NOW STA
05/30/24 16:18
* Blood Bank Products Urgent
Blood Bank Products: *Packed RBC Leuko(PRBC's)
Quantity: 2
Transfuse Today: Yes
Reason: Anemia
IV Insert/Care/Rem.- Treatment PRN
05/30/24 16:19
Cefepime HCl [Maxipime] 2,000 mg IV NOW STA
MetroNIDAZOLE 500 MG/100 ML [Flagyl 500 mg] 100 ml IV NOW
05/30/24 16:23
Type+Screen Urgent
05/30/24 16:36
ABG [Arterial Blood Gas] Stat
%Oxygen/Room Air: unknown
05/30/24 16:39
Sterile Water [Sterile Water For Injection] 10 ml .ROUTE .STK-MED ONE
05/30/24 16:57
Vancomycin [Vancocin] 1,500 mg 0.9% Sodium Chloride 500 ml [Nss] 500 ml IV NOW
05/30/24 17:45
Admit/Transfer Patient As Directed
Co-Sign Provider:
Level of Care: Inpatient admission
Assign to:: ICU
Physician / Group: HTAY
Diagnosis: Acute VDRF s/p cardiac arrest, presumed septi shock, profound anemia
Reason for Hospitalization: Acute VDRF s/p cardiac arrest, presumed septic shock, profound anemia
Expected length of stay greater than two midnights?: Yes
ELOS- Estimated Length of Stay in days: 7
I certify the patient meets the requirements for IP care: Yes
05/30/24 17:52
Code Status As Directed
Resuscitation Status: Do not resuscitate
Reached after discussion with pt or family/Healthcare POA: Yes
Decision communicated with: ER attd and family
DNR Bracelet Application ONCE
05/30/24 18:04
NORepinephrine 4 MG/250 ML [Levophed] 4 mg in 250 ml .ROUTE .STK-MED
05/30/24 19:48
Bisacodyl [Dulcolax] 10 mg RECTAL [id number] PRN
Cefepime HCl [Maxipime] 1,000 mg IV Q8H
Dextrose 50%-Water [Dextrose 50% Syringe] 12.5 grams IV [id number] PRN
Docusate W/Senna [Senokot-S] 1 tablet PO BIDPRN PRN
Glucagon [GlucaGen] 1 mg IM PRN PRN
Polyethylene Glycol Powder [Miralax] 17 grams PO DAILYPRN PRN
VANCOMYCIN Pharmacy to Dose [VANCOCIN Pharmacy to Dose] 1 each Pharmacy To Prepare [Call Pharmacy To Prepare] 0 ml IV PER PROTOCOL
05/30/24 19:48
DIETARY CONSULT Routine
Reason for Consult: PEG TF
Economics Faculty Member Consult Urgent
Consulting Provider: Jhonatan Lawler
Was physician already notified: Yes
Reason for consult: Acute VDRF s/p cardiac arrest, presumed septi shock, profound anemia
WOUND/OSTOMY CONSULT Routine
Reason for Consult: IV sacral decube
Activity As Directed
Activity Level: With Assistance
Bedside Glucose Monitoring As Directed
Frequency: AC&HS
Additional Instructions:: Change to q6h if pt on TPN, tube feeding or not eating
Intake/ Output As Directed
Frequency: Per unit guidelines
Vital Signs As Directed
Frequency: Per unit guidelines
Weight As Directed
Frequency: Daily
DX Deep Vein Thrombosis Video Routine
05/31/24 00:00
Insulin Aspart Corrective Low [Novolog Flexpen-Low Resistance] See Protocol SC Q6
MetroNIDAZOLE 500 MG/100 ML [Flagyl 500 mg] 100 ml IV Q8
05/31/24 06:00
Complete Blood Count/No Diff IN AM
Comprehensive Metabolic Panel IN AM
Glycohemoglobin (HgbA1c) IN AM
TSH IN AM
Abnormal Lab Results
05/30/24 05/30/24 05/30/24
15:49 15:50 16:23
WBC 47.4 H* 10^3/uL
(4.8-10.8)
RBC 1.83 L 10^6/uL
(4.20-5.40)
Hgb 5.4 L* g/dL
(12.0-16.0)
Hct 17.1 L* %
(37.0-47.0)
MCHC 31.6 L g/dL
(33.0-37.0)
RDW 19.1 H %
(11.5-14.5)
Abs Neuts (Manual) 27.0 H 10^3/uL
(1.4-6.5)
Lymphocytes (Manual) 12 L %
(20-51)
Monocytes (Manual) 1 L %
(2-9)
PT 22.5 H Sec
(11.4-14.6)
pH
pCO2
pO2
ABG O2 Sat (Measured)
VBG pH 7.06 L*
(7.32-7.43)
VBG pCO2 89 H* mmHg
(35-48)
VBG pO2 137 H mmHg
(30-50)
BUN 67 H mg/dl
(7-17)
Creatinine 2.1 H mg/dL
(0.6-1.0)
Glucose 262 H mg/dl
(70-99)
Lactic Acid 12.1 H* mmol/L
(0.7-2.0)
AST 560 H* U/L
(14-36)
ALT 291 H U/L
(0-35)
Alkaline Phosphatase 311 H U/L
(38-126)
Troponin I 0.342 H* ng/ml
Total Protein 5.5 L g/dl
(6.3-8.2)
Albumin 2.4 L g/dl
(3.5-5.0)
POC Glucose 255 H mg/dl
(70-99)
Crossmatch IS Only See Detail
05/30/24
16:36
WBC
RBC
Hgb
Hct
MCHC
RDW
Abs Neuts (Manual)
Lymphocytes (Manual)
Monocytes (Manual)
PT
pH 7.26 L
(7.35-7.45)
pCO2 50 H mmHg
(32-35)
pO2 326 H mmHg
(83-108)
ABG O2 Sat (Measured) 99.9 H %
(94-98)
VBG pH
VBG pCO2
VBG pO2
BUN
Creatinine
Glucose
Lactic Acid
AST
ALT
Alkaline Phosphatase
Troponin I
Total Protein
Albumin
POC Glucose
Crossmatch IS Only
05/30/24 15:50
05/30/24 15:50
Vital Signs
Initial and Last Documented VS:
Initial Vital Signs
Pulse Resp BP
49 26 56/46
05/30/24 15:39 05/30/24 15:39 05/30/24 15:39
Last Documented Vital Signs
Temp Pulse Resp BP Pulse Ox
94.5 F L 39 26 48/15 61
05/30/24 20:30 05/30/24 20:30 05/30/24 20:30 05/30/24 20:30 05/30/24 20:00
Procedures
Central Line
Right Femoral:
Indication for procedure:: Critical illness, poor IV access
Procedure completed by: Dr. Giles
Consent form signed: No
If no, reason: Emergency procedure
Central line lumen: triple
Number of attempts: 1
Central line complications: none
Sterile dressing applied?: Yes
MDM/Problems Addressed
MDM/Problems Addressed:
Sepsis, severe acute anemia, cardiac arrest, return of spontaneous circulation, vent dependent respiratory failure, aspiration, respiratory acidosis, leukocytosis, hypothermia
*Radiology
Radiology exam reviewed: preliminary read by ED provider (Right mainstem ET tube. ET tube was pulled back)
*Pulse Oximetry
Patient hypoxic: no
*EKG
Interpreted by ED Provider?: Yes
Interpretation: abnormal
Rate: normal
Rhythm: other (Junctional)
QRS Pattern: wide non-specific
Ischemia: non-specific ST changes
*Watch And Clock Maker And Repairer Interpretation
Rate: normal
Interpretation: abnormal
Rhythm: junctional
*Critical Care Note
Total Time (30-74mins, 75-104mins- exclusive of procedures): 80 minutes
Data Reviewed
Review of Other/Old Records Reveals: Discharge Summary (Discharge summary reviewed from April 2024)
Source: ambulance crew
Prescriptions/Medications Considered But Not Given:
Consider bicarb drip but VBG suggests respiratory acidosis
Patient Management
Discussion with other providers: Hospitalist and Director Of Blood (Economics Faculty Member)
Escalation/DeEscalation of care consider admission/obs:
73-year-old critically ill. Patient intubated by EMS. T-tube was adjusted. Patient had central line placed by me. Now on pressors. Broad spectrum antibiotics ordered. Push dose amps of bicarb. Lengthy discussion with family. Given her
critical illness, they do agree that if she were to have an arrest, further CPR would be futile. Case discussed with fiberglass tube molder as well as hospitalist
ED Attending Note
-
Portions of this chart may have been created with voice recognition software.� Occasional wrong word or��sound alike� substitutions may have occurred due to the inherent limitations of voice recognition software.
Discharge Plan
Departure
Patient Disposition: Admit
Date of Disposition: 05/30/24
Time of Disposition: 16:00
Admit to: ICU
Presentation/result/management discussed w/ accepting MD/DO: Hospitalist
Discharge Problem:
Cardiac arrest
Interventions
Interventions:
*Risk Screen - Suicide Last Done: 05/30/24 20:07
*General Assessment Last Done: 05/30/24 20:07
*Neglect/Abuse Screening Last Done: 05/30/24 20:07
*Nursing Disposition Last Done: 05/30/24 20:07
ED- Pulmonary Assessment Last Done: 05/30/24 15:30
Discharge Date and Time
Discharge Date/Time: 05/30/24 20:09
[2024-05-30 16:02] LABS: Venous Blood Gas B.E. -4.6 mmol/L (-4 to +4); Venous Blood Gas HCO3 25.2 mmol/L (22-27); Venous Blood Gas pO2 137 mmHg (30-50)
[2024-05-30 16:05] LABS: Venous Blood Gas pCO2 89 mmHg (35-48); Venous Blood Gas pH 7.06 (7.32-7.43)
[2024-05-30] MEDS: ADRENALIN 250 IV (16:06)
[2024-05-30] MEDS: NEO-SYNEPHRINE 200 MCG IV (16:08)
[2024-05-30] MEDS: SODIUM BICARBONATE 50 MEQ IV (16:11)
[2024-05-30 16:15] LABS: Hematocrit 17.1 % (37.0-47.0); Hemoglobin 5.4 g/dL (12.0-16.0); Mean Corp Hgb Conc. 31.6 g/dL (33.0-37.0); Mean Corpuscular Hgb 29.5 pg (27.0-31.0); Mean Corpuscular Volume 93.4 fL (81.0-99.0); Mean Platelet Volume 9.8 fL (7.4-10.4); Platelet Count 375 10^3/uL (130-400); Red Blood Cell Count 1.83 10^6/uL (4.20-5.40); Red Cell Dist. Width 19.1 % (11.5-14.5); White Blood Cell Count 47.4 10^3/uL (4.8-10.8)
[2024-05-30 16:17] LABS: INR 1.96; PT 22.5 Sec (11.4-14.6)
[2024-05-30 16:27] LABS: Lactic Acid 12.1 mmol/L (0.7-2.0)
[2024-05-30 16:32] LABS: NT-proBNP 4260 pg/ml; Troponin I 0.342 ng/ml
[2024-05-30 16:34] LABS: ALT (SGPT) 291 U/L (0-35); AST (SGOT) 560 U/L (14-36); Albumin 2.4 g/dl (3.5-5.0); Alkaline Phosphatase 311 U/L (38-126); Blood Urea Nitrogen 67 mg/dl (7-17); Calcium 9.7 mg/dl (8.4-10.2); Carbon Dioxide 30 mmol/L (22-30); Chloride 98 mmol/L (98-107); Estimated Creatinine Clearance 22 ml/min; Glucose 262 mg/dl (70-99); Lipase 188 U/L (23-300); Potassium 3.9 mmol/L (3.5-5.1); Sodium 141 mmol/L (135-145); Total Bilirubin 0.3 mg/dl (0.2-1.3); Total Protein 5.5 g/dl (6.3-8.2); eGFR 24.27
[2024-05-30] MEDS: MAXIPIME 2000 MG IV (16:41)
[2024-05-30 16:45] LABS: B.E. -4.3 mmol/L; HCO3 22.4 mmol/L (21-28); O2 Saturation % 99.9 % (94-98); PCO2 50 mmHg (32-35); PO2 326 mmHg (83-108); pH 7.26 (7.35-7.45)
[2024-05-30] MEDS: FLAGYL 500 MG 100 IV (16:54)
--- NOTE | 2024-05-30 17:32 | HPS.HSE ---
Family Physician
-
Family Physician: Earl Gloria
Chief Complaint
-
cardiac arrest at HD center
History of Present Illness
I could not get any information from the patient as intubate
Information gathered by chart review and speaking with the ER staff.
HPI
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
presents to the emergency department from correction after being found to have a hemoglobin of 6.3 and had a fever.
Seen at ER - intubated in the field
- BiB EMS from HD center.
- Acute onset of vomiting 1 hr into HD
- abruptly become unresponsive
Upon arrival to ER
- unresponsive and asystole on monitor
- CPR cont
- intubated in the field
- Received 5 rounds of Alison, 2 amps of HCO3, 1 ampule of Calcium
- Obtained ROSC upon ED arrival
Medical History
Past Medical History
Past Medical History: Reports Arrhythmia (Paroxysmal atrial fibrillation), CAD, CVA (Residual dementia and hemiplegia), HTN, IDDM and Renal Failure (On hemodialysis Sunday via a left IJ)
Past Surgical History: Reports Other (Status post PEG)
Social History
Unable to obtain full social history at this time due to: Patient Non-verbal
Family History
Family History: Not pertinent
Allergies / Home Medications
Allergies reflects when Allergies were last updated in [facility].
Home Medications with original date entered in [facility]
Allergy/Medication List:
Allergies
Allergy/AdvReac Type Severity Reaction Status Date / Time
adhesive tape Allergy Unknown Verified 04/07/24 21:17
codeine Allergy Unknown Verified 04/07/24 21:17
oxycodone Allergy Unknown Verified 04/07/24 21:17
tramadol Allergy Unknown Verified 04/07/24 21:17
Home Medications
amlodipine 10 mg tablet (Norvasc) 10 mg feeding tube DAILY Blood Pressure 12/27/23
atorvastatin 20 mg tablet (Lipitor) 20 mg feeding tube HS High Cholesterol 12/27/23
clonidine 0.1 mg/24 hr weekly transdermal patch 1 patch transdermal TH Blood Pressure 12/27/23
lacosamide 10 mg/mL oral solution (Vimpat) 100 mg feeding tube BID Seizures 12/27/23
apixaban 5 mg tablet (Eliquis) 5 mg feeding tube BID Blood Clot Prevention/Tx #1 tab 01/03/24
losartan 100 mg tablet 100 mg feeding tube DAILY #0 tabs 01/03/24
acetaminophen 325 mg tablet 650 mg feeding tube Q6HPRN PRN mild pain/fever>100.4 03/26/24
bisacodyl 10 mg rectal suppository (Dulcolax (bisacodyl)) 10 mg KS DAILYPRN PRN if no results for MOM 03/26/24
loperamide 1 mg/5 mL oral liquid 2 mg feeding tube [id number] PRN loose stools 03/26/24
magnesium hydroxide 400 mg/5 mL oral suspension (Milk of Magnesia) 30 ml feeding tube [id number] PRN if no bm x 3 days 03/26/24
pantoprazole 40 mg granules delayed-release for susp in packet (Protonix) 40 mg feeding tube BID Gastrointestinal Issue 03/26/24
hydralazine 50 mg tablet 75 mg feeding tube Q8H Blood Pressure 03/28/24
insulin aspart U-100 100 unit/mL (3 mL) subcutaneous pen 5 unit SC Q6H Diabetes 03/28/24
insulin glargine 100 unit/mL subcutaneous solution 8 unit SC DAILY 04/07/24
Review of Systems
-
Unable to obtain full review of systems at this time due to: Patient Intubation
Physical Exam
Vital Signs
Vital Signs
Temp Pulse Resp BP Pulse Ox
96.3 F L 69 26 81/38 96
05/30/24 17:25 05/30/24 17:25 05/30/24 17:25 05/30/24 17:25 05/30/24 17:25
Physical Exam
General: No Conversant (intubated )
HEENT: NormoCephalic, Moist mucous membranes and Atraumatic
Respiratory: Clear
Cardiac: S1/S2 and Regular Rhythm; No Murmur or Rub
GI: Soft, Non Tender, Non Distended and Normal Bowel Sounds; No Organomegaly
Rectal: Deferred by Provider
Musculoskeletal: No Clubbing, No Cyanosis and No Edema
Skin: No Rash
Neuro: Nonfocal/grossly intact
Laboratory Results
-
05/30/24 15:50
05/30/24 15:50
Laboratory Results
PT 22.5 Sec (11.4-14.6) H 05/30/24 15:50
INR 1.96 05/30/24 15:50
pH 7.26 (7.35-7.45) L 05/30/24 16:36
pCO2 50 mmHg (32-35) H 05/30/24 16:36
pO2 326 mmHg (83-108) H 05/30/24 16:36
HCO3 22.4 mmol/L (21-28) 05/30/24 16:36
Lactic Acid 12.1 mmol/L (0.7-2.0) H* 05/30/24 15:50
Total Bilirubin 0.3 mg/dl (0.2-1.3) 05/30/24 15:50
AST 560 U/L (14-36) H* 05/30/24 15:50
ALT 291 U/L (0-35) H 05/30/24 15:50
Alkaline Phosphatase 311 U/L (38-126) H 05/30/24 15:50
Troponin I 0.342 ng/ml H* 05/30/24 15:50
Lipase 188 U/L (23-300) 05/30/24 15:50
Data Reviewed
-
Diagnostic Radiology: Report Reviewed by me
CT Scan: Report Reviewed by me
Lab Data: Discussed with Physician
Old Records: Reviewed
Impression/Plan
-
Reviewed VS:
Vital Signs
Temp Pulse Resp BP Pulse Ox
96.3 F L 69 26 81/38 96
05/30/24 17:25 05/30/24 17:25 05/30/24 17:25 05/30/24 17:25 05/30/24 17:25
Data
Selected Entries
05/30/24
16:00 05/30/24
16:15 05/30/24
16:15
Temp
Pulse 70
Resp Rate 21
Blood pressure 63/42 99/63
05/30/24
16:33
Temp 94.1 F L
Pulse
Resp Rate
Blood pressure
Laboratory Tests
04/18/24 04/19/24 05/30/24
07:18 08:49 15:50
WBC 17.0 H 47.4 H*
Hgb 9.2 L 5.4 L*
INR 1.96
pH
pCO2
pO2
VBG pH
VBG pCO2
VBG pO2
VBG HCO3
BUN 67 H
Creatinine 2.1 H
eGFR 24.27
Glucose 262 H
Lactic Acid 12.1 H*
AST 560 H*
ALT 291 H
Alkaline Phosphatase 311 H
Troponin I 0.342 H*
Ymc-L-Qesqbumlwwq Pept 4260
Total Protein 5.5 L
Albumin 2.4 L
05/30/24 05/30/24
16:36 16:44
WBC
Hgb
INR
pH 7.26 L
pCO2 50 H
pO2 326 H
VBG pH Pending
VBG pCO2 Pending
VBG pO2 Pending
VBG HCO3 Pending
BUN
Creatinine
eGFR
Glucose
Lactic Acid
AST
ALT
Alkaline Phosphatase
Troponin I
Orw-C-Qthyincjmwu Pept
Total Protein
Albumin
EKG
UNUSUAL P AXIS AND SHORT KS, PROBABLE JUNCTIONAL RHYTHM
RIGHT BUNDLE BRANCH BLOCK
LEFT ANTERIOR FASCICULAR BLOCK
BIFASCICULAR BLOCK
ABNORMAL ECG
WHEN COMPARED WITH ECG OF 27-DEC-2023 18:02,
JUNCTIONAL RHYTHM HAS REPLACED SINUS RHYTHM
(RBBB AND LEFT ANTERIOR FASCICULAR BLOCK) IS NOW PRESENT
CXR
1).The tip of the endotracheal tube is in the right mainstem bronchus and could be retracted 3 cm
2).There is mild diffuse coarsening of the interstitial markings throughout both lungs such as may be seen with viral bronchiolitis.
Last hospitalist admission:
DATE OF ADMISSION: 04/08/2024 - DATE OF DISCHARGE: 04/19/2024
DC DXS:
Sepsis
Infected end-stage sacral decubitus ulcer
Chronic osteomyelitis of sacrum
Acute on chronic anemia,
End-stage renal disease
Type 2 diabetes mellitus
Essential hypertension
Paroxysmal A-fib
Hyperlipidemia
CAD
Right hearing with stage III pressure injury
Dysphagia
CVA
DVT
Seizure
Dementia
Hypoalbuminemia
Ambulatory dysfunction.
ASSESSMENT & PLAN
Pending Rx reconciliation
S/P Asystole Cardiac arrest
S/P code with ROSC
Currently intubated acute VDRF
Unresponsive - NOT under sedation
- Received 5 rounds of Epi. 2 amps of HCO3, 1 ampule of Calcium
- Obtained ROSC upon ED arrival
- per ER attd he d/w family - family opted for DNR if she code again
- cont. current management such as vent, pressors and ABx
- await family
- ICU consult
Shock presumed due to severe sepsis of uncertain origin
- Currently on 2 pressors support ( Max NE gtt, Max Epinephrine gtt )
- IV HCO3 50 x one
- BS ABx; IV Vancomycin + Cefepime +IV Metronidazole
Profound leukocytosis due to sepsis
Probably y bacteremic.
DDX: Catheter associated infection/dialysis or possibly acute wound infection.
- blood cultures sent
- BS ABx as above
Profound anemia concerning for GIB loss
HX Anemia
- type and screen.
- Transfusing 2 unit now.
- H/H q 8. Transfuse for Hgb < 7
- FoB testing
- holding eliquis for now until non-gi sources confirmed and stable hgb
- hold of from GI i consult at this time due to unstable patient
Wound - stage 4 sacral decub, infected
- wound care
- check lactate
- Wd care consult
DMT2 on aspart 5 q 6 while on tube feeds and lantus 8 hs
- NPO due to intubation
- add low ISS scale
ESRD - HD on MWF via PC
- Nephrology consult
Prox AF rate controlled
- holding eliquis pending stable h/h
Tube Feeding dependent nutrition
- Nutrition consult
PEG: Nepro with carb steady 50 mL/h with 25 mL/h of
DVT Px: SQH while holding Eliquis
Code: DNR
ICU
[2024-05-30 17:56] LABS: Atypical Lymphocytes 9 %; Band Neutrophils 3 % (0-3); Eosinophils 2 % (0-6); Lymphocytes 12 % (20-51); Monocytes 1 % (2-9); Segmented Neutrophils 54 % (42-75)
[2024-05-30 17:57] LABS: Anisocytosis 2+; Metamyelocytes 2 % (-); Myelocytes 2 % (-); Normal RBC Morphology No; Plasmacytoid Lymphocytes 15 %; Platelets Checked Yes
[2024-05-30 17:58] LABS: Macrocytosis 2+
[2024-05-30 17:59] LABS: Target Cells 1+; Total Cells Counted 100
[2024-05-30 18:00] LABS: Hypochromasia 1+
[2024-05-30] MEDS: VANCOCIN 530 MG IV (18:18)
[2024-05-30 20:24] LABS: Venous Blood Gas B.E. -10.4 mmol/L (-4 to +4); Venous Blood Gas HCO3 19.4 mmol/L (22-27); Venous Blood Gas O2 Sat % 78.7 %; Venous Blood Gas pCO2 64 mmHg (35-48); Venous Blood Gas pO2 49 mmHg (30-50)
[2024-05-30 20:27] LABS: Venous Blood Gas pH 7.09 (7.32-7.43)
[2024-05-30 20:31] LABS: Hematocrit 28.6 % (37.0-47.0); Mean Corp Hgb Conc. 31.5 g/dL (33.0-37.0); Mean Corpuscular Hgb 28.8 pg (27.0-31.0); Mean Corpuscular Volume 91.7 fL (81.0-99.0); Mean Platelet Volume 8.9 fL (7.4-10.4); Platelet Count 400 10^3/uL (130-400); Red Blood Cell Count 3.12 10^6/uL (4.20-5.40); Red Cell Dist. Width 17.4 % (11.5-14.5); White Blood Cell Count 20.5 10^3/uL (4.8-10.8)
[2024-05-30 20:36] LABS: INR 1.92; PT 22.1 Sec (11.4-14.6)
[2024-05-30 20:40] LABS: Lactic Acid 10.7 mmol/L (0.7-2.0)
--- NOTE | 2024-05-30 20:44 | W.PN.UPDATE ---
Update Note
Progress Note Update
1999 Discussed with family (daughter) management of patient. �After discussion with ED physician and poor prognosis, family wanted to maintain current support without escalation of care (no additional pressers). �Patient has been already made a DNR.
�
--- NOTE | 2024-05-30 20:52 | W.PN.DEATH ---
Pronouncement of
-
Called to see patient to pronounce.
No spontaneous heart tones or respirations noted.
Patient not responsive to verbal stimuli.
Patient is pronounced .
Time of : 20:33
Date of : 05/30/24
Cause of : Multiple
Family Notified: Yes
--- NOTE | 2024-05-30 21:06 | PTCARENOTE ---
Pt admitted to ICU from ED via stretcher at approx 19:50. Received pt intubated and unresponsive. Pt on max dose of levo and epi, HR initially in the 60s, with SBP in the 60s also. 2nd unit of PRBCs completed-see TAR. Repeat labs sent--see flowsheet
for results.
Pt passed at 20:33 with family at bedside.
[2024-05-30 21:09] LABS: Blood Urea Nitrogen 64 mg/dl (7-17); Calcium 8.9 mg/dl (8.4-10.2); Carbon Dioxide 19 mmol/L (22-30); Chloride 102 mmol/L (98-107); Estimated Creatinine Clearance 22 ml/min; Glucose 188 mg/dl (70-99); Potassium 3.3 mmol/L (3.5-5.1); Sodium 139 mmol/L (135-145); eGFR 24.27
[2024-05-30 21:50] LABS: Magnesium 2.7 mg/dl (1.6-2.3)
== END 2024-05-30 20:33 | disposition expired | DRG 314 ==
LOC: ICU 18:06
PROVIDERS: Nurse Practitioner Primary Care; ADMITTING PHYSICIAN Internal Medicine; EMERGENCY PHYSICIAN Emergency Medicine; FAMILY PHYSICIAN Internal Medicine
PROC: 5A1935Z Respiratory Ventilation, Less than 24 Consecutive Hours (ICD-10-PCS; 2024-05-30)
PROC: 30233N1 Transfusion of Nonautologous Red Blood Cells into Peripheral Vein, Percutaneous Approach (ICD-10-PCS; 2024-05-30)
PROC: 06HM33Z Insertion of Infusion Device into Right Femoral Vein, Percutaneous Approach (ICD-10-PCS; 2024-05-30)
DX: T80.211A Bloodstream infection due to central venous catheter, initial encounter (principal); A41.9 Sepsis, unspecified organism; J96.00 Acute respiratory failure, unspecified whether with hypoxia or hypercapnia; L89.154 Pressure ulcer of sacral region, stage 4; L89.893 Pressure ulcer of other site, stage 3; N18.6 End stage renal disease; R65.21 Severe sepsis with septic shock; Z66 Do not resuscitate; I13.2 Hypertensive heart and chronic kidney disease with heart failure and with stage 5 chronic kidney disease, or end stage renal disease; M46.28 Osteomyelitis of vertebra, sacral and sacrococcygeal region; Z99.11 Dependence on respirator [ventilator] status; K92.2 Gastrointestinal hemorrhage, unspecified; D62 Acute posthemorrhagic anemia; Y84.1 Kidney dialysis as the cause of abnormal reaction of the patient, or of later complication, without mention of misadventure at the time of the procedure; I46.9 Cardiac arrest, cause unspecified; E11.22 Type 2 diabetes mellitus with diabetic chronic kidney disease; F03.90 Unspecified dementia, unspecified severity, without behavioral disturbance, psychotic disturbance, mood disturbance, and anxiety; I48.0 Paroxysmal atrial fibrillation; I50.9 Heart failure, unspecified; D63.1 Anemia in chronic kidney disease; E11.69 Type 2 diabetes mellitus with other specified complication; E78.5 Hyperlipidemia, unspecified; I25.10 Atherosclerotic heart disease of native coronary artery without angina pectoris; Z86.73 Personal history of transient ischemic attack (TIA), and cerebral infarction without residual deficits; Z86.718 Personal history of other venous thrombosis and embolism; Z99.2 Dependence on renal dialysis; Z93.1 Gastrostomy status; Z79.4 Long term (current) use of insulin; Z79.01 Long term (current) use of anticoagulants; Z88.5 Allergy status to narcotic agent; Y71.2 Prosthetic and other implants, materials and accessory cardiovascular devices associated with adverse incidents
CPT/HCPCS: 36430; 36556; 51702; 71045; 80048; 80053; 82805; 82962; 83605; 83690; 83735; 83880; 84484; 85025; 85027; 85610; 85730; 86850; 86900; 86901; 86920; 87040; 87147; 87205; 93005; 96365; 96366; 96367; 96375; 99291; 99292; P9016